=== PATIENT | male | born 1955 | race Caucasian/White ===

== ENCOUNTER 2017-01-02 12:32 | Emergency (ER) | payer OTHER ==
[2017-01-02 12:39] VITALS: BP 138/75; PULSE 75; BMI 26.6
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
== END 2017-01-02 14:23 | disposition home or self-care (01) ==
LOC: JERFT 12:32
DX: Z04.1 Encounter for examination and observation following transport accident (principal); I10 Essential (primary) hypertension; E11.9 Type 2 diabetes mellitus without complications; Z79.84 Long term (current) use of oral hypoglycemic drugs; F20.9 Schizophrenia, unspecified; V59.59XA Passenger in pick-up truck or van injured in collision with other motor vehicles in traffic accident, initial encounter; Y92.415 Exit ramp or entrance ramp of street or highway as the place of occurrence of the external cause; Y93.89 Activity, other specified; Y99.8 Other external cause status
CPT/HCPCS: 99281-25

== ENCOUNTER 2017-07-29 10:30 | Emergency (ER) | payer OTHER ==
[2017-07-29 10:38] VITALS: BMI 30.9
--- NOTE | 2017-07-29 12:29 | PDOC ---
History of Present Illness - General Chief Complaint: Weakness Stated Complaint: WEAKNESS, PAIN Time Seen by Provider: 07/29/17 11:06 History Source: Care Provider Exam Limitations: Other (MR and not responding to questions) - History of Present Illness Initial Comments: 07/29/17 12:24 The patient is a 62M with a PMH of MR, schizophrenia, and HTN who presents to the ER with his aide. The patient does not respond to questions and the aide provides the history. The aide states that the patient has this intermittent R hip pain, but this morning he was unable to ambulate and had tenderness to palpation over his back. He denies recalling the patient complain about anything. No other history was able to be provided. Past History - Past Medical History Allergies/Adverse Reactions: Allergies Allergy/AdvReac Type Severity Reaction Status Date / Time No Known Allergies Allergy Verified 07/29/17 10:33 Home Medications: Ambulatory Orders Amlodipine Besylate [Norvasc -] 5 mg PO HS 10/16/14 Aspirin [Aspirin EC] 81 mg PO DAILY 10/16/14 Atorvastatin Ca [Lipitor -] 20 mg PO HS 10/16/14 Divalproex Sodium [Divalproex Sodium ER] 1,500 mg PO HS 10/16/14 Docusate Sodium [Colace -] 100 mg PO TID 10/16/14 Fluticasone Prop 0.05% Nasal [Flonase -] 1 spray NS DAILY 10/16/14 Ketoconazole 2% Cream [Nizoral 2% Cream -] 1 applic TP BID 10/16/14 Lisinopril [Prinivil -] 40 mg PO DAILY 10/16/14 Loratadine 10 mg PO DAILY 10/16/14 Olanzapine 10 mg PO DAILY 10/16/14 metFORMIN HCL [Glucophage] 1,000 mg PO BID 10/16/14 Pioglitazone HCl 15 mg PO ASDIR 01/02/17 COPD: No Dementia: Yes Diabetes: Yes HTN: Yes Psychiatric Problems: Yes (Schizophrenia,PSYCHOSIS, Mod M.R) - Immunization History Immunization Up to Date: No - Suicide/Smoking/Psychosocial Hx Smoking Status: No Smoking History: Never smoked Number of Cigarettes Smoked Daily: 0 Information on smoking cessation initiated: No Hx Alcohol Use: No Drug/Substance Use Hx: No Substance Use Type: None Review of Systems - Review of Systems Able to Perform ROS?: No (Not answering questions) *Physical Exam - Vital Signs Last Vital Signs Temp Pulse Resp BP Pulse Ox 97.8 F 77 18 149/82 100 07/29/17 10:34 07/29/17 10:34 07/29/17 10:34 07/29/17 10:34 07/29/17 10:34 - Physical Exam Comments: 07/29/17 12:27 GENERAL: Well developed, well nourished. Awake and alert. No acute distress. HEENT: Normocephalic, atraumatic. Hearing grossly normal. Moist mucous membranes. PERRLA, EOMI. No conjunctival pallor. Sclera are non-icteric. Oropharynx is clear. NECK: Supple. Full ROM. CARDIOVASCULAR: Regular rate and rhythm. No murmurs, rubs, or gallops. PULMONARY: No evidence of respiratory distress. Lungs clear to auscultation bilaterally. No wheezing, rales or rhonchi. ABDOMINAL: Soft. Non-tender. Non-distended. No rebound or guarding. TESTICULAR: Nontender, descended tests b/l. GENITOURINARY: No CVA tenderness bilaterally. MUSCULOSKELETAL: Normal range of motion at all joints. No pain with SLR. No bony deformities or tenderness. EXTREMITIES: No cyanosis. No clubbing. No edema. No calf tenderness. SKIN: Warm and dry. Normal capillary refill. No rashes. No jaundice. NEUROLOGICAL: Alert, awake, appropriate. Cranial nerves 2-12 intact. Normal speech. Gait is normal without ataxia. PSYCHIATRIC: Cooperative. Good eye contact. Appropriate mood and affect. ED Treatment Course - LABORATORY CBC & Chemistry Diagram: 07/29/17 12:22 07/29/17 12:22 Medical Decision Making - Medical Decision Making 07/29/17 12:28 The patient is a 62M with a PMH of MR, HTN, and schizophrenia who presents to the ER with complaints of R hip pain. The patient has no acute complaints. He speaks Polish. Assistant Sales Director phone was used x 2 (#[phone] #[phone]) and he did not speak into the phone either time. My exam is unremarkable. Will order basic labs to r/o infectious process and send home. 07/29/17 13:46 All labs negative. Will send home with PCP f/u. *DC/Admit/Observation/Transfer Diagnosis at time of Disposition: Right hip pain - Discharge Dispostion Disposition: HOME Condition at time of disposition: Stable Decision to Admit order: No - Referrals - Patient Instructions Printed Discharge Instructions: Help for Hip Pain Additional Instructions: Please follow up with your primary care physician in 2-3 days. Please return to the ER if you have any signs or symptoms of chest pain, shortness of breath, uncontrollable fever, chills, nausea, vomiting, numbness, tingling, or weakness in any part of your body, changes in vision, or slurred speech. Please take your medications as prescribed. Please return to the ER if symptoms persist, worsen, or new symptoms arise. Por favor, siga com seu mdico de cuidados primrios em 2-3 liu. Por favor, retorne ao pronto-gregory se tiver sinais ou sintomas de leesa no peito , falta de ar, febre incontrolvel, calafrios, nuseas, vmitos, dormncia, formigamento ou fraqueza em qualquer parte do corpo, alteraes na viso ou fala arrastada. Por favor, tome seus medicamentos wei prescrito. Por favor, retorne ao pronto-gregory se os sintomas persistirem, piorarem ou surgirem novos sintomas. Print Language: CITIZEN OF [place] - Post Discharge Activity
[2017-07-29 12:31] LABS: BASO % 0.6 % (0-2.0); EOS % 1.7 % (0-4.5); HEMATOCRIT 41.5 % (35.4-49); HEMOGLOBIN 13.7 GM/dL (11.7-16.9); LYMPH % 36.5 % (8-40); MCH 28.1 pg (25.7-33.7); MEAN CELL VOLUME 85.2 fl (80-96); MEAN PLT VOLUME 9.2 fl (7.5-11.1); MONO % 10.7 % (3.8-10.2); NEUT % 50.5 % (42.8-82.8); PLATELET COUNT 187 K/MM3 (134-434); RBC 4.88 M/mm3 (4.00-5.60); RDW 15.2 % (11.9-15.9); WHITE BLOOD COUNT 9.2 K/mm3 (4.0-10.0)
[2017-07-29 12:57] LABS: ANION GAP 8 (8-16); BLOOD UREA NITROGEN 18 mg/dL (7-18); CALCIUM 9.1 mg/dL (8.5-10.1); CHLORIDE 104 mmol/L (98-107); CO2 26 mmol/L (21-32); GLUCOSE,RANDOM 134 mg/dL (74-106); POTASSIUM 5.1 mmol/L (3.5-5.1); SGOT/AST 12 U/L (15-37); SGPT/ALT 25 U/L (12-78); SODIUM 138 mmol/L (136-145)
[2017-07-29 12:59] LABS: ALK PHOS 45 U/L (45-117); BILIRUBIN,TOTAL 0.3 mg/dL (0.2-1.0); TOT PROT 7.4 g/dl (6.4-8.2)
--- NOTE | 2017-07-29 13:04 | PDOC ---
Attending Attestation - Resident Resident Name: Pete Lugo - ED Attending Attestation I have performed the following: I have examined & evaluated the patient, The case was reviewed & discussed with the resident, I agree w/resident's findings & plan, Exceptions are as noted - HPI HPI: 07/29/17 12:59 "The patient is a 62 year old male, with a significant past medical history of MR, schizophrenia, and hypertension, who presents to the emergency department with aide with complaint of generalized body pain. Pt is a poor historian 2/2 MR despite use of fuels sales representative phone for English. Aide reports that the pt has had pain for months. He is unable to communicate exactly where, but aide states that he rubs his legs and back occasionally. The pain seems to come and go throughout the day. Aide does not know of any exacerbating or alleviating factors. Pt upon interview is laughing and walking around room with no limp. Aide states that he appears well at this time. As per chart review, the patient had xrays of his left hip on 07/19/17 which was normal. Allergies: NKDA " - Physicial Exam PE: 07/29/17 13:02 "GENERAL: Awake, alert, well appearing EYES: PERRLA, clear conjunctiva NOSE: Nose is clear without discharge EARS: EACs and TMs are normal THROAT: Moist mucosa, oropharynx is clear without erythema or exudates, NECK: Supple, no adenopathy, no meningismus CHEST: Lungs are clear without crackles, or wheezes HEART: Regular rhythm, normal S1 and S2, no murmurs ABDOMEN: Soft and nontender with normal bowel sounds, no organomegaly, no mass, no rebound, no guarding EXTREMITIES: Normal, no deformity or tenderness NEURO: normal cranial nerves, normal tone SKIN: Unremarkable, no rash, no swelling, no bruising, no signs of injury " - Medical Decision Making 07/29/17 13:02 62 M with intermittent pain to b/l legs and back for several months. Currently does not appear to be in any pain. Exam is completely unremarkable at this time , and pt is ambulatory without assistance. Pt is currently on a statin, so will obtain labs and CPK to r/o myositis or other muscle injury. - Labs, CPK Labs wnl, CPK normal, no evidence of muscle breakdown Pt is well appearing, with normal vitals. Clinically stable for DC at this time. I discussed the physical exam findings, ancillary test results and final diagnoses with the patients mapping editor. I answered all of their questions. The mapping editor was satisfied with the care received and felt comfortable with the discharge plan and treatment plan. They agree to follow up with the primary care physician within 24-72 hours.
[2017-07-29 14:17] VITALS: BP 140/78; PULSE 69; TEMP 97.9
== END 2017-07-29 14:17 | disposition home or self-care (01) ==
LOC: JER 10:30
DX: M25.551 Pain in right hip (principal); I10 Essential (primary) hypertension; F20.9 Schizophrenia, unspecified; F71 Moderate intellectual disabilities; E11.9 Type 2 diabetes mellitus without complications; Z79.84 Long term (current) use of oral hypoglycemic drugs
CPT/HCPCS: 36415; 80053; 82550; 85025; 99282-25

== ENCOUNTER 2017-10-04 16:03 | Emergency (ER) | payer OTHER ==
--- NOTE | 2017-10-04 16:57 | PDOC ---
Rapid Medical Evaluation Time Seen by Provider: 10/04/17 16:47 Medical Evaluation: Allergies Allergy/AdvReac Type Severity Reaction Status Date / Time No Known Allergies Allergy Verified 07/29/17 10:33 10/04/17 16:51 Pt. is a 62 y/o M who presents to the ED with rash to his hands, head, and feet for one day. From [place]. Non-verbal at baseline Exam: erythematous macules to the palms, feet and face. No lesions noted in the mouth. Breathing easily, at baseline. Orders: Nothing Pt to proceed to ED for further evaluation. Discharge Disposition - Diagnosis Rash - Referrals - Patient Instructions - Post Discharge Activity
--- NOTE | 2017-10-04 17:07 | PDOC ---
History of Present Illness - General Chief Complaint: Rash Stated Complaint: RASH Time Seen by Provider: 10/04/17 16:47 History Source: Intermediate Records Exam Limitations: Physical Impairment - History of Present Illness Initial Comments: CHIEF COMPLAINT: 62 y/o male with HTN, HLD, DM, MR, non verbal BIB shelter staff for itchy rash today. HISTORY OF PRESENT ILLNESS: Staff says this morning they noticed the patient was scratching his arms, hands, legs and feet. THey noticed a red rash. The patient saw his PCP who sent him here. Staff denies fever, facial swelling, lips swelling, difficulty breathing and all other symptoms. Vital signs on arrival are within normal limits. REVIEW OF SYSTEMS: (Provided by staff) GENERAL/CONSTITUTIONAL: No fever HEAD, EYES, EARS, NOSE AND THROAT: No facial swelling. CARDIOVASCULAR: No shortness of breath. RESPIRATORY: No cough, wheezing, or hemoptysis. SKIN: +itchy rash PHYSICAL EXAM: GENERAL: The patient is awake, alert, and fully oriented, in no acute distress. He is well appearing. He is smiling. HEAD: Normal with no signs of trauma. ENT: Pupils equal, round and reactive to light, extraocular movements intact, sclera anicteric, conjunctiva clear. NO angioedema. LUNGS: Clear to auscultation bilaterally. Normal excursion. No respiratory distress or use of accessory muscles. SKIN: non raised, erythematous macules mostly on both palms, some on arms and few on legs. Nothing noted in mouth. Rash does not stella. Past History - Past Medical History Allergies/Adverse Reactions: Allergies Allergy/AdvReac Type Severity Reaction Status Date / Time No Known Allergies Allergy Verified 10/04/17 17:01 Home Medications: Ambulatory Orders Amlodipine Besylate [Norvasc -] 10 mg PO HS 07/29/17 Aspirin [Aspirin EC] 81 mg PO DAILY 07/29/17 Atenolol [Tenormin -] 50 mg PO DAILY 07/29/17 Atorvastatin Ca [Lipitor] 20 mg PO HS 07/29/17 Clotrimazole/Betamethasone Dip [Clotrimazole-Betamethasone Crm] 1 applic TP BID 07/29/17 Desonide 1 applic TP BID 07/29/17 Divalproex [Depakote -] 1,500 mg PO DAILY 07/29/17 Docusate Sodium [Colace -] 100 mg PO TID 07/29/17 Fluocinolone Acetonide 1 applic TP BID 07/29/17 Fluticasone Propionate [Flovent Diskus] 50 mcg IH BID 07/29/17 Ketoconozole 2% Cream [Nizoral 2% Cream -] 1 applic TP BID 07/29/17 Lisinopril [Prinivil -] 40 mg PO DAILY 07/29/17 Loratadine [Claritin -] 10 mg PO DAILY 07/29/17 Metformin HCl [Metformin HCl ER] 1,000 mg PO BID 07/29/17 Naproxen [Naprosyn -] 375 mg PO BID PRN 07/29/17 Olanzapine [Zyprexa -] 10 mg PO BID 07/29/17 Pioglitazone HCl [Actos] 15 mg PO DAILY 07/29/17 Diphenhydramine HCl/Zinc Acet [Benadryl 2% Cream] 1 applic TP TID #1 tube COPD: No Dementia: Yes Diabetes: Yes HTN: Yes Psychiatric Problems: Yes (Schizophrenia,PSYCHOSIS, Mod M.R) - Immunization History Immunization Up to Date: No - Suicide/Smoking/Psychosocial Hx Smoking Status: No Smoking History: Never smoked Number of Cigarettes Smoked Daily: 0 Hx Alcohol Use: No Drug/Substance Use Hx: No Substance Use Type: None *Physical Exam - Vital Signs Last Vital Signs Temp Pulse Resp BP Pulse Ox 98.4 F 85 16 146/76 99 10/04/17 16:54 10/04/17 16:54 10/04/17 16:54 10/04/17 16:54 10/04/17 16:54 ED Treatment Course - LABORATORY CBC & Chemistry Diagram: 10/04/17 17:10 Medical Decision Making - Medical Decision Making A/P: 62 y/o male with itchy rash to hands, arms and legs. almost looks like hand/foot/mouth. Will check platelets, give benadryl. Platelets WNLs. Will send rx for benadryl cream. STaff instructed to f/u with Dr. Woo or another debeaker within 1 week and return to the ER with any worsening or concerning symptoms. The patient verbalizes understanding of all instructions, has no further questions and is awaiting discharge. *DC/Admit/Observation/Transfer Diagnosis at time of Disposition: Rash - Discharge Dispostion Disposition: ALF FACILITY Condition at time of disposition: Good - Prescriptions Prescriptions: Diphenhydramine HCl/Zinc Acet [Benadryl 2% Cream] 1 applic TP TID #1 tube - Referrals Referrals: Lavern Woo MD [Staff Physician] - - Patient Instructions Printed Discharge Instructions: DI for Rash Additional Instructions: Discharge Instructions: -You have an itchy rash -A prescription for benadryl cream has been sent to your pharmacy; please use as prescribed for itching -Follow up with Dr. Woo or another Rags Laborer within 1 week if no improvement in rash - Post Discharge Activity
[2017-10-04 17:11] VITALS: BP 146/76; PULSE 85; TEMP 98.4; BMI 31.3
[2017-10-04 17:20] LABS: BASO % 0.7 % (0-2.0); EOS % 2.3 % (0-4.5); HEMATOCRIT 38.2 % (35.4-49); LYMPH % 16.6 % (8-40); MCH 28.7 pg (25.7-33.7); MEAN CELL VOLUME 84.5 fl (80-96); MEAN PLT VOLUME 9.1 fl (7.5-11.1); MONO % 24.4 % (3.8-10.2); PLATELET COUNT 182 K/MM3 (134-434); RBC 4.52 M/mm3 (4.00-5.60); RDW 14.3 % (11.9-15.9); WHITE BLOOD COUNT 8.5 K/mm3 (4.0-10.0)
[2017-10-04] MEDS ORDERED: diphenhydrAMINE HCL 25 MG CAPSULE (FP) PO ONE ×2 (17:31→17:42)
[2017-10-04 21:08] LABS: ANISOCYTOSIS 1+; MACROCYTOSIS 1+; PLATELET ESTIMATE ADEQUATE
== END 2017-10-04 17:47 ==
LOC: JERFT 16:03 → JER 16:03 → JERFT 17:47
DX: R21 Rash and other nonspecific skin eruption (principal); I10 Essential (primary) hypertension; E70.0 Classical phenylketonuria; E11.9 Type 2 diabetes mellitus without complications; Z79.84 Long term (current) use of oral hypoglycemic drugs; R47.01 Aphasia; F79 Unspecified intellectual disabilities
CPT/HCPCS: 36415; 85025; 99281-25

== ENCOUNTER 2017-11-26 14:00 | Emergency (ER) | payer OTHER ==
[2017-11-26 14:12] VITALS: BP 129/78; PULSE 92; TEMP 98.8; BMI 29.0
--- NOTE | 2017-11-26 14:13 | PDOC ---
Rapid Medical Evaluation Time Seen by Provider: 11/26/17 14:07 Medical Evaluation: Allergies Allergy/AdvReac Type Severity Reaction Status Date / Time No Known Allergies Allergy Verified 10/04/17 17:01 11/26/17 14:07 Pt is a 62 y/o M who presents to the ED s/p fall. Pt with R leg limp and gave out today. Did not hit his head or black out. Pt is currently being evaluated for frequent falls by his PCP. Had x-ray one week ago and it was normal. Exam: Abrasion to R knee. Pt is non-verbal at baseline Orders: Defer to on-coming provider Pt to proceed to ED for further evaluation Discharge Disposition - Diagnosis Abrasion Fall Qualifiers: Encounter type: initial encounter Qualified Code(s): W19.XXXA - Unspecified fall, initial encounter - Referrals - Patient Instructions - Post Discharge Activity
--- NOTE | 2017-11-26 15:07 | PDOC ---
History of Present Illness - General Chief Complaint: Injury Stated Complaint: FALL Time Seen by Provider: 11/26/17 14:07 - History of Present Illness Initial Comments: 62-year-old male nonverbal with severe MR presents for evaluation after a fall. He did have a witnessed mechanical fall. He does have frequent falls and he is being worked up by his primary care physician. 11/26/17 15:04 Past History - Past Medical History Allergies/Adverse Reactions: Allergies Allergy/AdvReac Type Severity Reaction Status Date / Time No Known Allergies Allergy Verified 11/26/17 14:08 Home Medications: Ambulatory Orders Amlodipine Besylate [Norvasc -] 10 mg PO HS 07/29/17 Aspirin [Aspirin EC] 81 mg PO DAILY 07/29/17 Atenolol [Tenormin -] 50 mg PO DAILY 07/29/17 Atorvastatin Ca [Lipitor] 20 mg PO HS 07/29/17 Clotrimazole/Betamethasone Dip [Clotrimazole-Betamethasone Crm] 1 applic TP BID 07/29/17 Desonide 1 applic TP BID 07/29/17 Divalproex [Depakote -] 1,500 mg PO DAILY 07/29/17 Docusate Sodium [Colace -] 100 mg PO TID 07/29/17 Fluocinolone Acetonide 1 applic TP BID 07/29/17 Fluticasone Propionate [Flovent Diskus] 50 mcg IH BID 07/29/17 Ketoconozole 2% Cream [Nizoral 2% Cream -] 1 applic TP BID 07/29/17 Lisinopril [Prinivil -] 40 mg PO DAILY 07/29/17 Loratadine [Claritin -] 10 mg PO DAILY 07/29/17 Metformin HCl [Metformin HCl ER] 1,000 mg PO BID 07/29/17 Naproxen [Naprosyn -] 375 mg PO BID PRN 07/29/17 Olanzapine [Zyprexa -] 10 mg PO BID 07/29/17 Pioglitazone HCl [Actos] 15 mg PO DAILY 07/29/17 Diphenhydramine HCl/Zinc Acet [Benadryl 2% Cream] 1 applic TP TID #1 tube COPD: No Dementia: Yes Diabetes: Yes HTN: Yes Psychiatric Problems: Yes (Schizophrenia,PSYCHOSIS, Mod M.R) - Immunization History Immunization Up to Date: No - Suicide/Smoking/Psychosocial Hx Smoking Status: No Smoking History: Never smoked Number of Cigarettes Smoked Daily: 0 Hx Alcohol Use: No Drug/Substance Use Hx: No Substance Use Type: None Review of Systems - Review of Systems Comments:: Unobtainable 11/26/17 15:05 *Physical Exam - Vital Signs Last Vital Signs Temp Pulse Resp BP Pulse Ox 98.8 F 92 H 19 129/78 99 11/26/17 14:11/26/17 14:11/26/17 14:11/26/17 14:11/26/17 14:09 - Physical Exam Comments: There is a superficial abrasion on the anterior aspect of the skin overlying the tibial tuberosity. This was cleaned and dry sterile dressing was placed. There is no intra-articular effusion there is full range of motion of the knee and what appears to be nonpainful. No evidence of instability no appreciable areas of tenderness 11/26/17 15:05 Medical Decision Making - Medical Decision Making This is most likely just a superficial abrasion of the knee local wound care was given he'll follow up with primary care physician for further evaluation and treatment options. 11/26/17 15:06 *DC/Admit/Observation/Transfer Diagnosis at time of Disposition: Abrasion Fall Qualifiers: Encounter type: initial encounter Qualified Code(s): W19.XXXA - Unspecified fall, initial encounter - Discharge Dispostion Disposition: HOME Condition at time of disposition: Stable Decision to Admit order: No - Referrals - Patient Instructions Printed Discharge Instructions: DI for Abrasion Additional Instructions: Return to the emergency room should there be any drainage or swelling to the area. Otherwise he may keep the dressing on for 48 hours after which you may remove the dressing and wash with soap and water and leave the area open to air. Follow-up with your primary care physician as scheduled for further evaluation and treatment options. - Post Discharge Activity
== END 2017-11-26 15:07 | disposition home or self-care (01) ==
LOC: JERFT 14:00
DX: S80.211A Abrasion, right knee, initial encounter (principal); R26.89 Other abnormalities of gait and mobility; W18.39XA Other fall on same level, initial encounter; Z91.81 History of falling; Y93.89 Activity, other specified; Y92.198 Other place in other specified residential institution as the place of occurrence of the external cause; Y99.8 Other external cause status; F20.9 Schizophrenia, unspecified; F71 Moderate intellectual disabilities; F03.90 Unspecified dementia, unspecified severity, without behavioral disturbance, psychotic disturbance, mood disturbance, and anxiety; F29 Unspecified psychosis not due to a substance or known physiological condition
CPT/HCPCS: 99281-25

== ENCOUNTER 2019-01-05 21:36 | Emergency (ER) | payer OTHER ==
[2019-01-05 21:49] VITALS: BP 147/86; PULSE 89; TEMP 98; BMI 33.0
--- NOTE | 2019-01-05 21:51 | PDOC ---
Rapid Medical Evaluation Chief Complaint: Redness To Affected Area Time Seen by Provider: 01/05/19 21:45 Medical Evaluation: Allergies Allergy/AdvReac Type Severity Reaction Status Date / Time No Known Allergies Allergy Verified 01/05/19 21:45 Vital Signs Temp Pulse Resp BP Pulse Ox 98 F 89 18 147/86 98 01/05/19 21:46 01/05/19 21:46 01/05/19 21:46 01/05/19 21:46 01/05/19 21:46 01/05/19 21:49 I have performed a brief in-person evaluation of this patient. The patient presents with a chief complaint of: BIB from [facility] due to ecchymosis of right great toe from today on unknown etiology. went to [facility] urgent care to day and advised to come to ED Pertinent physical exam findings:ecchymosis with brittle toenail of right great toe I have ordered the following: x- ray of RT great toe The patient will proceed to the ED for further evaluation. Discharge Disposition - Diagnosis Bruised toe - Discharge Dispostion Condition at time of disposition: Stable - Referrals - Patient Instructions - Post Discharge Activity
--- NOTE | 2019-01-05 22:37 | PDOC ---
History of Present Illness - General Chief Complaint: Redness To Affected Area Stated Complaint: SENT BY URGENT CARE Time Seen by Provider: 01/05/19 21:45 History Source: Patient - History of Present Illness Initial Comments: 01/05/19 23:06 63-year-old male brought in by aide from [facility] with bruising to the right great toe. Unknown trauma. Patient was seen at urgent care was was referred to the ER for further evaluation.. Patient has a past medical history of mental retardation, psychosis, hypertension, diabetes, hypercholesterolemia. Past History - Past Medical History Allergies/Adverse Reactions: Allergies Allergy/AdvReac Type Severity Reaction Status Date / Time No Known Allergies Allergy Verified 01/05/19 21:45 Home Medications: Ambulatory Orders Amlodipine Besylate [Norvasc -] 10 mg PO HS 07/29/17 Aspirin [Aspirin EC] 81 mg PO DAILY 07/29/17 Atenolol [Tenormin -] 50 mg PO DAILY 07/29/17 Atorvastatin Ca [Lipitor] 20 mg PO HS 07/29/17 Clotrimazole/Betamethasone Dip [Clotrimazole-Betamethasone Crm] 1 applic TP BID 07/29/17 Desonide 1 applic TP BID 07/29/17 Divalproex [Depakote -] 1,500 mg PO DAILY 07/29/17 Docusate Sodium [Colace -] 100 mg PO TID 07/29/17 Fluocinolone Acetonide 1 applic TP BID 07/29/17 Fluticasone Propionate [Flovent Diskus] 50 mcg IH BID 07/29/17 Ketoconozole 2% Cream [Nizoral 2% Cream -] 1 applic TP BID 07/29/17 Lisinopril [Prinivil -] 40 mg PO DAILY 07/29/17 Loratadine [Claritin -] 10 mg PO DAILY 07/29/17 Naproxen [Naprosyn -] 375 mg PO BID PRN 07/29/17 Olanzapine [Zyprexa -] 10 mg PO BID 07/29/17 Pioglitazone HCl [Actos] 15 mg PO DAILY 07/29/17 metFORMIN HCL [Metformin HCl ER] 1,000 mg PO BID 07/29/17 Diphenhydramine HCl/Zinc Acet [Benadryl 2% Cream] 1 applic TP TID #1 tube Cephalexin Monohydrate [Keflex -] 250 mg PO Q8H #21 capsule 01/05/19 COPD: No Dementia: Yes Diabetes: Yes HTN: Yes Psychiatric Problems: Yes (Schizophrenia,PSYCHOSIS, Mod M.R) Other medical history: mental retardation - Immunization History Immunization Up to Date: No - Psycho Social/Smoking Cessation Hx Smoking Status: No Smoking History: Never smoked Number of Cigarettes Smoked Daily: 0 Hx Alcohol Use: No Drug/Substance Use Hx: No Substance Use Type: None Review of Systems - Review of Systems Able to Perform ROS?: Yes Is the patient limited Setswana proficient: No Integumentary: Yes: Other (toe injury) *Physical Exam - Vital Signs Last Vital Signs Temp Pulse Resp BP Pulse Ox 98 F 89 18 147/86 98 01/05/19 21:46 01/05/19 21:46 01/05/19 21:46 01/05/19 21:46 01/05/19 21:46 - Physical Exam General Appearance: Yes: Appropriately Dressed Respiratory/Chest: positive: Lungs Clear, Normal Breath Sounds Extremity: positive: Pedal Edema (b/l lower extremity nonpitting edema, right great toe bruising, no erythema to the toe / foot or streaking noted) Neurologic: positive: Fully Oriented, Alert ED Progress Note - Progress Note Progress Note: 01/05/19 23:11 right great toe contusion P: xray negative will empirically give cephalexin wound check in 2 days with pcp Medical Decision Making - Medical Decision Making 01/05/19 23:10 xray: negative Discharge - Discharge Information Problems reviewed: Yes Clinical Impression/Diagnosis: Contusion of great toe of right foot Qualifiers: Encounter type: initial encounter Damage to nail status: without damage Qualified Code(s): S90.111A - Contusion of right great toe without damage to nail, initial encounter Condition: Stable Disposition: HOME - Additional Discharge Information Prescriptions: Cephalexin Monohydrate [Keflex -] 250 mg PO Q8H #21 capsule - Follow up/Referral - Patient Discharge Instructions Additional Instructions: X-ray did not show fracture. Patient should follow-up with his doctor for a wound check in 2 days. We will give antibiotic empirically since patient has a history of diabetes. Return to the emergency room if redness is worsening or streaking or patient is having fever. - Post Discharge Activity
== END 2019-01-05 23:18 | disposition home or self-care (01) ==
LOC: JER 21:36
DX: S90.111A Contusion of right great toe without damage to nail, initial encounter (principal); X58.XXXA Exposure to other specified factors, initial encounter; Y93.89 Activity, other specified; Y92.89 Other specified places as the place of occurrence of the external cause; Y99.8 Other external cause status; I10 Essential (primary) hypertension; E11.9 Type 2 diabetes mellitus without complications; Z79.84 Long term (current) use of oral hypoglycemic drugs; F03.90 Unspecified dementia, unspecified severity, without behavioral disturbance, psychotic disturbance, mood disturbance, and anxiety; F20.9 Schizophrenia, unspecified; F71 Moderate intellectual disabilities; F29 Unspecified psychosis not due to a substance or known physiological condition
CPT/HCPCS: 73660-TC-FY; 99281-25

== ENCOUNTER 2019-04-30 08:40 | Inpatient (IN) | payer OTHER ==
--- NOTE | 2019-04-30 08:52 | PDOC ---
History of Present Illness - General Chief Complaint: Weakness Stated Complaint: HTN,WEAKNESS - History of Present Illness Initial Comments: The pt is a 64M w/ a history of MR, HTN, DM, new fluid restriction 2/2 BLE swelling who presents for evaluation of hypotension, lethargy, and tachycardia. The pt's BP was noted to be 70/51 and repeat 61/47 w/ HR 100 and 97 respectively. He was noted to be more lethargic than usual as well. EMS was subsequently called. The pt is unable to provide a history 2/2 MR 04/30/19 09:08 Past History - Past Medical History Allergies/Adverse Reactions: Allergies Allergy/AdvReac Type Severity Reaction Status Date / Time No Known Allergies Allergy Verified 04/30/19 09:00 Home Medications: Ambulatory Orders Amlodipine Besylate [Norvasc -] 10 mg PO HS 07/29/17 Aspirin [Aspirin EC] 81 mg PO DAILY 07/29/17 Atenolol [Tenormin -] 50 mg PO DAILY 07/29/17 Atorvastatin Ca [Lipitor] 20 mg PO HS 07/29/17 Clotrimazole/Betamethasone Dip [Clotrimazole-Betamethasone Crm] 1 applic TP BID 07/29/17 Desonide 1 applic TP BID 07/29/17 Divalproex [Depakote -] 1,500 mg PO DAILY 07/29/17 Docusate Sodium [Colace -] 100 mg PO TID 07/29/17 Fluocinolone Acetonide 1 applic TP BID 07/29/17 Fluticasone Propionate [Flovent Diskus] 50 mcg IH BID 07/29/17 Ketoconozole 2% Cream [Nizoral 2% Cream -] 1 applic TP BID 07/29/17 Lisinopril [Prinivil -] 40 mg PO DAILY 07/29/17 Loratadine [Claritin -] 10 mg PO DAILY 07/29/17 Naproxen [Naprosyn -] 375 mg PO BID PRN 07/29/17 Olanzapine [Zyprexa -] 10 mg PO BID 07/29/17 Pioglitazone HCl [Actos] 15 mg PO DAILY 07/29/17 metFORMIN HCL [Metformin HCl ER] 1,000 mg PO BID 07/29/17 Diphenhydramine HCl/Zinc Acet [Benadryl 2% Cream] 1 applic TP TID #1 tube 07/20/ 18 Cephalexin Monohydrate [Keflex -] 250 mg PO Q8H #21 capsule 01/05/19 COPD: No Dementia: Yes Diabetes: Yes HTN: Yes Psychiatric Problems: Yes (Schizophrenia,PSYCHOSIS, Mod M.R) - Immunization History Immunization Up to Date: No - Psycho Social/Smoking Cessation Hx Smoking Status: No Smoking History: Never smoked Number of Cigarettes Smoked Daily: 0 Hx Alcohol Use: No Drug/Substance Use Hx: No Substance Use Type: None Review of Systems - Review of Systems Able to Perform ROS?: No (2/2 medical condition) *Physical Exam - Vital Signs Initial Vital Signs Temp Pulse Resp BP Pulse Ox 100.5 F H 96 H 28 H 101/46 L 90 L 04/30/19 09:00 04/30/19 09:00 04/30/19 09:00 04/30/19 09:00 04/30/19 09:00 04/30/19 12:28 - Physical Exam GENERAL: Awake, does not follow commands HEAD: No signs of trauma, normocephalic, atraumatic EYES: PERRLA, EOMI, sclera anicteric, conjunctiva clear ENT: Hearing grossly normal, nares patent, oropharynx clear without exudates. Dry mucosa LUNGS: No distress, speaks in full sentences, clear to auscultation bilaterally HEART: Regular rate and rhythm, normal S1 and S2, no murmurs appreciated, peripheral pulses normal and equal bilaterally ABDOMEN: Soft, protuberant, no grimace to palpation, normoactive bowel sounds EXTREMITIES: Moves all extremities independently; 1+ BLE swelling to mid sanchez NEUROLOGICAL: non-verbal, does not follow commands, localizes to pain throughout SKIN: Warm, pale, diaphoretic 04/30/19 08:51 ED Treatment Course - LABORATORY CBC & Chemistry Diagram: 04/30/19 09:00 04/30/19 09:00 Medical Decision Making - Medical Decision Making Pt presented for evaluation of hypotension, tachycardia, and abd pain CXR w/ air under right hemidiaphragm Labs sent CT A&P w/o 2L IVF No leukocytosis No anemia Lactic acidosis LFTs wnl Pt given Vanc/Zosyn/Flagyl CT w/ pneumoperitoneum Dr. Bhat consulted OR ready for pt [employer]blog sent for admission 02/13/20 12:25 Pt signed out to Brian Admitting Discharge - Discharge Information Problems reviewed: Yes Clinical Impression/Diagnosis: Bowel perforation Condition: Guarded - Admission Yes - Follow up/Referral Referrals: Tr Bill [Primary Care Provider] - - Patient Discharge Instructions - Post Discharge Activity
[2019-04-30] MEDS ORDERED: PIPERACILLIN/TAZOB 3.375 GM 3.375 GM in DEXTROSE 5%-WATER - 50 ML IVPB ONE (09:29)
[2019-04-30] MEDS ORDERED: SODIUM CHLORIDE 0.9% 500 ML INFUS.BAG IV ONE ×2 (09:29→11:36)
[2019-04-30] MEDS ORDERED: VANCOMYCIN 1 GM in D5W (PRE-DOCKED) 1,000 MG/250 ML IVPB ONE (09:29)
[2019-04-30] MEDS ORDERED: PIPERACILLIN/TAZOB 2.25 GM 2.25 GM/50 ML BAG IVPB ONE (09:44)
[2019-04-30] MEDS ORDERED: VANCOMYCIN 1 GRAM (PRE-DOCKED) 1,000 MG/250 ML BAG IVPB ONE (09:45)
[2019-04-30] MEDS ORDERED: PIPERACILLIN/TAZOB 3.375 GM 3.375 GM/50 ML BAG IVPB ONE (09:45)
[2019-04-30 10:38] LABS: INR 1.1 (0.83-1.09)
[2019-04-30 10:41] LABS: ACTIVATED PTT 33.3 SECONDS (25.2-36.5)
[2019-04-30 10:46] LABS: BASO % 0.4 % (0-2.0); EOS % 0.4 % (0-4.5); HEMOGLOBIN 12.4 GM/dL (11.7-16.9); LYMPH % 15.5 % (8-40); MCH 28.1 pg (25.7-33.7); MCHC 33.5 g/dl (32.0-35.9); MEAN CELL VOLUME 83.9 fl (80-96); MEAN PLT VOLUME 9.9 fl (7.5-11.1); MONO % 5.5 % (3.8-10.2); NEUT % 78.2 % (42.8-82.8); PLATELET COUNT 211 K/MM3 (134-434); RBC 4.41 M/mm3 (4.00-5.60); RDW 15.6 % (11.9-15.9); WHITE BLOOD COUNT 3.9 K/mm3 (4.0-10.0)
[2019-04-30 10:49] LABS: VENOUS PC02 29.2 mmHg (38-52); VENOUS PH 7.42 (7.31-7.41); VENOUS PO2 59.1 mmHg (28-48)
[2019-04-30 11:12] LABS: ALBUMIN 2.9 g/dl (3.4-5.0); BILIRUBIN,TOTAL 0.6 mg/dL (0.2-1); BLOOD UREA NITROGEN 22.5 mg/dL (7-18); CALCIUM 8.7 mg/dL (8.5-10.1); CREATININE 1.4 mg/dL (0.55-1.3); POTASSIUM 4.2 mmol/L (3.5-5.1); TOT PROT 6.4 g/dl (6.4-8.2)
[2019-04-30] MEDS ORDERED: ACETAMINOPHEN 1000 MG/100 ML VIAL (NON FORMULARY) IVPB ONE (11:36)
--- NOTE | 2019-04-30 11:38 | PDOC ---
Documentation entered by Renae Sanders SCRIBE, acting as scribe for Ana Aparicio MD. Ana Aparicio MD: This documentation has been prepared by the Marilyn martinez Brenda, SCRIBE, under my direction and personally reviewed by me in its entirety. I confirm that the documentation accurately reflects all work, treatment, procedures, and medical decision making performed by me. Attending Attestation - Resident Resident Name: ChelyamariLuis - ED Attending Attestation I have performed the following: I have examined & evaluated the patient, The case was reviewed & discussed with the resident, I agree w/resident's findings & plan, Exceptions are as noted - HPI HPI: 04/30/19 09:25 The patient is a 64 year old male with a significant PMH of MR, HTN, DM,. fluid restrcition 2/2 bilateral extremities who presents to the ED from [place] due to being found hypotensive, lethargic and tachycardic as per staff. Patient was limited due to MR. Patient is accompanied by aide, who endorsed low blood sugar. Allergies: NKA Past surgical history: None reported Social history: No reported hx of tobacco use, alcohol use or illicit drug use. PCP: Tr Bill - Physicial Exam PE: 04/30/19 10:39 GENERAL: Awake, non verbal HEAD: No signs of trauma EYES: PERRLA, EOMI, sclera anicteric, conjunctiva clear NECK: Normal ROM, supple, no lymphadenopathy, JVD, or masses LUNGS: Breath sounds equal, clear to auscultation bilaterally. No wheezes, and no crackles HEART: Regular rate and rhythm, normal S1 and S2, no murmurs, rubs or gallops ABDOMEN: Soft, nontender, normoactive bowel sounds. No guarding, no rebound. No masses EXTREMITIES: Normal range of motion, no edema. No clubbing or cyanosis. No cords, erythema, or tenderness NEUROLOGICAL: Alert, non verbal, not answering questions or following commands. SKIN: Warm, Dry, normal turgor, no rashes or lesions noted. 04/30/19 12:33 - Critical Care Time Total Critical Care Time: 30 Critical Care Statement: The care of this patient involved high complexity decision making to prevent further life threatening deterioration of the patient 's condition and/or to evaluate & treat vital organ system(s) failure or risk of failure. - Medical Decision Making 04/30/19 11:36 Pt presents to the ED complaining of generalized weakness and hypotension in NH. + free air on cxr. Concern for perforation. plan for broad spectrum abx, emergent CT abdomen, surgical consult and admission. BP improved after IVF.
[2019-04-30] MEDS ORDERED: ACETAMINOPHEN INJECTION 100 ML IVPB ONE (11:45)
[2019-04-30] MEDS ORDERED: SEVOFLURANE 250 ML BTL ONE (13:04)
[2019-04-30] MEDS ORDERED: SODIUM CHLORIDE 1,000 ML IV STA (13:04)
[2019-04-30] MEDS ORDERED: DESFLURANE GAS 240 ML BOTTLE IH ONE (13:04)
[2019-04-30] MEDS ORDERED: ROCURONIUM BROMIDE 50 MG/5 ML SYRINGE ONE ×2 (13:15→14:36)
[2019-04-30 13:20] LABS: EPI CELLS 1.3 /HPF (0-5/HPF); HYALINE CASTS 4 /lpf (0-8); URINE APPEARANCE CLEAR; URINE BILIRUBIN NEGATIVE (NEGATIVE); URINE COLOR YELLOW; URINE GLUCOSE (UA) TRACE (NEGATIVE); URINE KETONE TRACE (NEGATIVE); URINE LEUK ESTERASE NEGATIVE (NEGATIVE); URINE NITRITE NEGATIVE (NEGATIVE); URINE PROTEIN NEGATIVE (NEGATIVE); URINE RBC 4 /hpf (0-4); URINE UROBILINOGEN 0.2 mg/dL (0.2-1.0); URINE WBC 3 /hpf (0-5)
--- NOTE | 2019-04-30 13:42 | EKG ---
Test Reason : Blood Pressure : / mmHG Vent. Rate : 098 BPM Atrial Rate : 098 BPM P-R Int : 140 ms QRS Dur : 086 ms QT Int : 334 ms P-R-T Axes : 038 -07 021 degrees QTc Int : 426 ms NORMAL SINUS RHYTHM NORMAL ECG WHEN COMPARED WITH ECG OF 17-JAN-2016 17:03, NO SIGNIFICANT CHANGE WAS FOUND Confirmed by LOGAN SIMONS MD ([id number]) on 04/30/2019 1:42:32 PM Referred By: Confirmed By:LOGAN SIMONS MD
--- NOTE | 2019-04-30 13:43 | PN ---
Progress Note (short form) - Note Progress Note: surgery pt seen and examined. full consult dictated. 64m with MR, [facility], admitted for lethargy and stomach pain for 48 hours. called initially for kub suggestive of free air and request was made for stat ct to confirm. CT reviewed confirming free air. I suspect pud. Emergency laparotomy booked at 11 :53 am and requested patient by send to [facility]. Spoke with duong of residential real estate agent [employer]aston at 12:35 to get consent. Pt is tachcardic, ill appearing , with neutropenia. Pt still in ED awaiting transport. I am available and awaiting emergent surgery.
[2019-04-30 13:53] LABS: PLATELET ESTIMATE NORMAL
--- NOTE | 2019-04-30 14:14 | CONSULT ---
Consultation: REQUESTING PROVIDER: Dr. Bhat CONSULT REQUEST: We have been asked to medically evaluate this patient for perforated viscous. HISTORY OF PRESENT ILLNESS: The pt is a 64 yo m w/ PMH MR, HTN, DM, b/l LE swelling who was BIBEMS for a 1 day h/o Hypotension (70/51), lethargy and tachycardia. On arrival, bp was noted to be 101/46 with a HR of 96 and a fever to 100.5. CTAP revealed free air under the diaphragm. Surgery was called and the patient was taken to the OR emergently and was sent to the ICU for post op monitoring. Patient received from PACU intubated and sedated. Currently on levo and vaso GTT , NS @ 75. BP stable on pressors REVIEW OF SYSTEMS: unable to obtain 2/2 clinical status/ h/o MR PHYSICAL EXAMINATION Vital Signs - 24 hr 04/30/19 04/30/19 04/30/19 09:00 10:00 10:25 Temperature 100.5 F H Pulse Rate 96 H Pulse Rate [ 109 H Apical] Respiratory 28 H 28 H Rate Blood Pressure 101/46 L Blood Pressure 111/87 [Right Arm] O2 Sat by Pulse 90 L 99 98 Oximetry (%) 04/30/19 04/30/19 04/30/19 11:00 11:30 12:00 Temperature Pulse Rate Pulse Rate [ 102 H 104 H 111 H Apical] Respiratory 24 H 32 H 30 H Rate Blood Pressure Blood Pressure 106/63 104/69 117/67 [Right Arm] O2 Sat by Pulse 98 99 96 Oximetry (%) 04/30/19 04/30/19 04/30/19 12:25 12:56 13:33 Temperature 99 F Pulse Rate Pulse Rate [ 111 H 111 H 101 H Apical] Respiratory 28 H 32 H 32 H Rate Blood Pressure Blood Pressure 117/67 94/60 119/78 [Right Arm] O2 Sat by Pulse 96 98 98 Oximetry (%) GENERAL: Intubated and sedated. EYES: Pupils equal, round and sluggishly reactive to light. LUNGS: Breath sounds equal, clear to auscultation bilaterally. No wheezes, and no crackles. No accessory muscle use. HEART: Regular rate and rhythm, normal S1 and S2 without murmur, rub or gallop. ABDOMEN: Soft, not distended, surgical dressing intact. LOWER EXTREMITIES: 2+ pulses, warm, well-perfused. No calf tenderness. No peripheral edema. NEUROLOGICAL: unable to perform as patient sedated. Laboratory Results - last 24 hr 04/30/19 04/30/19 04/30/19 09:00 09:00 09:00 WBC 3.9 L RBC 4.41 Hgb 12.4 Hct 37.0 MCV 83.9 MCH 28.1 MCHC 33.5 RDW 15.6 Absolute Neuts (auto) 3.0 Neutrophils % 78.2 D Lymphocytes % 15.5 Monocytes % 5.5 Eosinophils % 0.4 D Basophils % 0.4 Nucleated RBC % 0 PT with INR 13.00 INR 1.10 H PTT (Actin FS) 33.3 VBG pH POC VBG pCO2 POC VBG pO2 VBG HCO3 VBG O2 Sat (Rey) VBG Base Excess Sodium Potassium Chloride Carbon Dioxide Anion Gap BUN Creatinine Est GFR (CKD-EPI)AfAm Est GFR (CKD-EPI)NonAf POC Glucometer Random Glucose Lactic Acid Calcium Total Bilirubin AST ALT Alkaline Phosphatase Troponin I 0.02 Total Protein Albumin Urine Color Urine Appearance Urine pH Ur Specific Rossiter Urine Protein Urine Glucose (UA) Urine Ketones Urine Blood Urine Nitrite Urine Bilirubin Urine Urobilinogen Ur Leukocyte Esterase Urine WBC (Auto) Urine RBC (Auto) Urine Casts (Auto) U Epithel Cells (Auto) Urine Bacteria (Auto) Blood Type Antibody Screen Crossmatch IS Only 04/30/19 04/30/19 04/30/19 09:00 09:00 09:00 WBC RBC Hgb Hct MCV MCH MCHC RDW Absolute Neuts (auto) Neutrophils % Lymphocytes % Monocytes % Eosinophils % Basophils % Nucleated RBC % PT with INR INR PTT (Actin FS) VBG pH POC VBG pCO2 POC VBG pO2 VBG HCO3 VBG O2 Sat (Rey) VBG Base Excess Sodium 135 L Potassium 4.2 Chloride 103 Carbon Dioxide 22 Anion Gap 10 BUN 22.5 H Creatinine 1.4 H Est GFR (CKD-EPI)AfAm 61.10 Est GFR (CKD-EPI)NonAf 52.72 POC Glucometer Random Glucose 147 H Lactic Acid 3.8 H* Calcium 8.7 Total Bilirubin 0.6 AST 27 ALT 31 Alkaline Phosphatase 51 Troponin I Total Protein 6.4 Albumin 2.9 L Urine Color Urine Appearance Urine pH Ur Specific Rossiter Urine Protein Urine Glucose (UA) Urine Ketones Urine Blood Urine Nitrite Urine Bilirubin Urine Urobilinogen Ur Leukocyte Esterase Urine WBC (Auto) Urine RBC (Auto) Urine Casts (Auto) U Epithel Cells (Auto) Urine Bacteria (Auto) Blood Type A POSITIVE Antibody Screen Negative Crossmatch IS Only See Detail 04/30/19 04/30/19 04/30/19 09:00 09:43 12:30 WBC RBC Hgb Hct MCV MCH MCHC RDW Absolute Neuts (auto) Neutrophils % Lymphocytes % Monocytes % Eosinophils % Basophils % Nucleated RBC % PT with INR INR PTT (Actin FS) VBG pH 7.42 H POC VBG pCO2 29.2 L POC VBG pO2 59.1 H VBG HCO3 18.4 L VBG O2 Sat (Rey) 89.7 H VBG Base Excess -4.6 L Sodium Potassium Chloride Carbon Dioxide Anion Gap BUN Creatinine Est GFR (CKD-EPI)AfAm Est GFR (CKD-EPI)NonAf POC Glucometer 152 Random Glucose Lactic Acid Calcium Total Bilirubin AST ALT Alkaline Phosphatase Troponin I Total Protein Albumin Urine Color Yellow Urine Appearance Clear Urine pH 6.0 Ur Specific Rossiter 1.014 Urine Protein Negative Urine Glucose (UA) Trace Urine Ketones Trace H Urine Blood 1+ H Urine Nitrite Negative Urine Bilirubin Negative Urine Urobilinogen 0.2 Ur Leukocyte Esterase Negative Urine WBC (Auto) 3 Urine RBC (Auto) 4 Urine Casts (Auto) 4 U Epithel Cells (Auto) 1.3 Urine Bacteria (Auto) 7.0 Blood Type Antibody Screen Crossmatch IS Only ASSESSMENT/PLAN: The pt is a 64 yo m w/ PMH MR, HTN, DM, b/l LE swelling who was BIBEMS for a 1 day h/o Hypotension (70/51), lethargy and tachycardia. Patient transferred to ICU intubated for post op management. #Neuro -intubated and sedated on propofol #Pulmonary -intubated -no other active pulm issues -ABG shows high PaO2, FiO2 decreased to 60 -weaning trials once stable #Cardio -BP stable of levo GTT and vaso GTT -will attempt to down-titrate #GI -Patient had ex lap for repair of perforated duodenal ulcer (POD 0) -NGT place surgically. per surgery NGT SHOULD NOT BE REMOVED OR MANIPULATED for 1 week -Patient on protonix GTT -s/p flagyl in ED -placed on zosyn and fluconazole post op -if intra op cultures negative for yeast, ok to DC fluconazole per surgery #Renal -post-op ABG shows metabolic acidosis; patient had a lactic acidosis pre op -on NS @ 75 -will order rpt lactate #Prophy -protonix gtt -lovenox 40 sq for DVT prophy per surgery #Dispo -admit ICU -We will continue to follow the patient. Thank you for this consultative opportunity. Visit type - Emergency Visit Emergency Visit: Yes ED Registration Date: 04/30/19 Care time: The patient presented to the Emergency Department on the above date and was hospitalized for further evaluation of their emergent condition. - New Patient This patient is new to me today: Yes Date on this admission: 04/30/19 - Critical Care Critical Care patient: Yes Total Critical Care Time (in minutes): 60 Critical Care Statement: The care of this patient involved high complexity decision making to prevent further life threatening deterioration of the patient 's condition and/or to evaluate & treat vital organ system(s) failure or risk of failure. ATTENDING PHYSICIAN STATEMENT I saw and evaluated the patient. I reviewed the resident's note and discussed the case with the resident. I agree with the resident's findings and plan as documented. SUBJECTIVE: OBJECTIVE: ASSESSMENT AND PLAN:
[2019-04-30] MEDS ORDERED: ONDANSETRON 4 MG/2 ML VIAL IVPUSH PRN ×2 (14:21→16:45)
[2019-04-30] MEDS ORDERED: VASOPRESSIN 20 UNITS/ML VIAL IV ONE ×3 (14:27→16:21)
--- NOTE | 2019-04-30 14:29 | HP ---
CHIEF COMPLAINT:lethargy, hypotension PCP: Dr. Bill HISTORY OF PRESENT ILLNESS: Patient is a 64 year old male with past medical history of MR, HTN, DM, new fluid restriction 2/2 BLE swelling, was brought in from [facility] due to lethargy, hypotension, and tachycardia noted today. Patient unable to provide any history due to MR, aide at bedside to provide information. As per the aide, she came in this morning to look after the patient, but noted him to be lethargic and diaphoretic. She took his BP and was noted to be hypotensive with SBP 60s-70s. She immediately called the nurse, vitals were verified and patient was immediately brought to the ED. ER course was notable for: (1)CTAP - pneumoperitoneum consistent with a perforated viscus. Thickening of a distal small bowel loop up to and including the terminal ileum suggestive of inflammatory/infectious process. There is also nondistention of the proximal small bowel loops. Cannot rule out wall thickening. (2)Lactic acid 3.8, BUN/Cr 22/1.4 (3) Recent Travel:denies PAST MEDICAL HISTORY: MR HTN DM Social History: Smoking:denies Alcohol:denies Drugs: denies Allergies No Known Allergies Allergy (Verified 04/30/19 09:00) HOME MEDICATIONS: Home Medications Medication Instructions Recorded Amlodipine Besylate [Norvasc -] 10 mg PO HS 07/29/17 Aspirin [Aspirin EC] 81 mg PO DAILY 07/29/17 Atenolol [Tenormin -] 50 mg PO DAILY 07/29/17 Atorvastatin Ca [Lipitor] 20 mg PO HS 07/29/17 Clotrimazole/Betamethasone Dip 1 applic TP BID 07/29/17 [Clotrimazole-Betamethasone Crm] Desonide 1 applic TP BID 07/29/17 Divalproex [Depakote -] 1,500 mg PO DAILY 07/29/17 Docusate Sodium [Colace -] 100 mg PO TID 07/29/17 Fluocinolone Acetonide 1 applic TP BID 07/29/17 Fluticasone Propionate [Flovent 50 mcg IH BID 07/29/17 Diskus] Ketoconozole 2% Cream [Nizoral 2% 1 applic TP BID 07/29/17 Cream -] Lisinopril [Prinivil -] 40 mg PO DAILY 07/29/17 Loratadine [Claritin -] 10 mg PO DAILY 07/29/17 Naproxen [Naprosyn -] 375 mg PO BID PRN 07/29/17 Olanzapine [Zyprexa -] 10 mg PO BID 07/29/17 Pioglitazone HCl [Actos] 15 mg PO DAILY 07/29/17 metFORMIN HCL [Metformin HCl ER] 1,000 mg PO BID 07/29/17 Diphenhydramine HCl/Zinc Acet 1 applic TP TID #1 tube 10/04/17 [Benadryl 2% Cream] Cephalexin Monohydrate [Keflex -] 250 mg PO Q8H #21 capsule 01/05/19 REVIEW OF SYSTEMS CONSTITUTIONAL: Absent: fever, chills, diaphoresis, generalized weakness, malaise, loss of appetite, weight change HEENT: Absent: rhinorrhea, nasal congestion, throat pain, throat swelling, difficulty swallowing, mouth swelling, ear pain, eye pain, visual changes CARDIOVASCULAR: Absent: chest pain, syncope, palpitations, irregular heart rate, lightheadedness , peripheral edema RESPIRATORY: Absent: cough, shortness of breath, dyspnea with exertion, orthopnea, wheezing, stridor, hemoptysis GASTROINTESTINAL: Absent: abdominal pain, abdominal distension, nausea, vomiting, diarrhea, constipation, melena, hematochezia GENITOURINARY: Absent: dysuria, frequency, urgency, hesitancy, hematuria, flank pain, genital pain MUSCULOSKELETAL: Absent: myalgia, arthralgia, joint swelling, back pain, neck pain SKIN: Absent: rash, itching, pallor HEMATOLOGIC/IMMUNOLOGIC: Absent: easy bleeding, easy bruising, lymphadenopathy, frequent infections ENDOCRINE: Absent: unexplained weight gain, unexplained weight loss, heat intolerance, cold intolerance NEUROLOGIC: Absent: headache, focal weakness or paresthesias, dizziness, unsteady gait, seizure, mental status changes, bladder or bowel incontinence PSYCHIATRIC: Absent: anxiety, depression, suicidal or homicidal ideation, hallucinations. PHYSICAL EXAMINATION Vital Signs - 24 hr 04/30/19 04/30/19 04/30/19 09:00 10:00 10:25 Temperature 100.5 F H Pulse Rate 96 H Pulse Rate [ 109 H Apical] Respiratory 28 H 28 H Rate Blood Pressure 101/46 L Blood Pressure 111/87 [Right Arm] O2 Sat by Pulse 90 L 99 98 Oximetry (%) 04/30/19 04/30/19 04/30/19 11:00 11:30 12:00 Temperature Pulse Rate Pulse Rate [ 102 H 104 H 111 H Apical] Respiratory 24 H 32 H 30 H Rate Blood Pressure Blood Pressure 106/63 104/69 117/67 [Right Arm] O2 Sat by Pulse 98 99 96 Oximetry (%) 04/30/19 04/30/19 04/30/19 12:25 12:56 13:33 Temperature 99 F Pulse Rate Pulse Rate [ 111 H 111 H 101 H Apical] Respiratory 28 H 32 H 32 H Rate Blood Pressure Blood Pressure 117/67 94/60 119/78 [Right Arm] O2 Sat by Pulse 96 98 98 Oximetry (%) GENERAL: Awake and alert, in no acute distress. HEAD: Normal with no signs of trauma. EYES: PERRLA, EOMI, sclera anicteric, conjunctiva clear. EARS, NOSE, THROAT: Dry mucous membranes. NECK: Normal range of motion, supple. LUNGS: Breath sounds equal, clear to auscultation bilaterally. HEART: Tachycardic, normal S1 and S2 without murmur, rub or gallop. ABDOMEN: Soft, protuberant, no grimace to palpation, normoactive bowel sounds EXTREMITIES: Moves all extremities independently; 1+ BLE swelling to mid sanchez NEUROLOGICAL: non-verbal, does not follow commands, localizes to pain throughout SKIN: Warm, dry, normal turgor. Laboratory Results - last 24 hr 04/30/19 04/30/19 04/30/19 09:00 09:00 09:00 WBC 3.9 L RBC 4.41 Hgb 12.4 Hct 37.0 MCV 83.9 MCH 28.1 MCHC 33.5 RDW 15.6 Absolute Neuts (auto) 3.0 Neutrophils % 78.2 D Lymphocytes % 15.5 Monocytes % 5.5 Eosinophils % 0.4 D Basophils % 0.4 Nucleated RBC % 0 PT with INR 13.00 INR 1.10 H PTT (Actin FS) 33.3 VBG pH POC VBG pCO2 POC VBG pO2 VBG HCO3 VBG O2 Sat (Rey) VBG Base Excess Sodium Potassium Chloride Carbon Dioxide Anion Gap BUN Creatinine Est GFR (CKD-EPI)AfAm Est GFR (CKD-EPI)NonAf POC Glucometer Random Glucose Lactic Acid Calcium Total Bilirubin AST ALT Alkaline Phosphatase Troponin I 0.02 Total Protein Albumin Urine Color Urine Appearance Urine pH Ur Specific [place] Urine Protein Urine Glucose (UA) Urine Ketones Urine Blood Urine Nitrite Urine Bilirubin Urine Urobilinogen Ur Leukocyte Esterase Urine WBC (Auto) Urine RBC (Auto) Urine Casts (Auto) U Epithel Cells (Auto) Urine Bacteria (Auto) Blood Type Antibody Screen Crossmatch IS Only 04/30/19 04/30/19 04/30/19 09:00 09:00 09:00 WBC RBC Hgb Hct MCV MCH MCHC RDW Absolute Neuts (auto) Neutrophils % Lymphocytes % Monocytes % Eosinophils % Basophils % Nucleated RBC % PT with INR INR PTT (Actin FS) VBG pH POC VBG pCO2 POC VBG pO2 VBG HCO3 VBG O2 Sat (Rey) VBG Base Excess Sodium 135 L Potassium 4.2 Chloride 103 Carbon Dioxide 22 Anion Gap 10 BUN 22.5 H Creatinine 1.4 H Est GFR (CKD-EPI)AfAm 61.10 Est GFR (CKD-EPI)NonAf 52.72 POC Glucometer Random Glucose 147 H Lactic Acid 3.8 H* Calcium 8.7 Total Bilirubin 0.6 AST 27 ALT 31 Alkaline Phosphatase 51 Troponin I Total Protein 6.4 Albumin 2.9 L Urine Color Urine Appearance Urine pH Ur Specific [place] Urine Protein Urine Glucose (UA) Urine Ketones Urine Blood Urine Nitrite Urine Bilirubin Urine Urobilinogen Ur Leukocyte Esterase Urine WBC (Auto) Urine RBC (Auto) Urine Casts (Auto) U Epithel Cells (Auto) Urine Bacteria (Auto) Blood Type A POSITIVE Antibody Screen Negative Crossmatch IS Only See Detail 04/30/19 04/30/19 04/30/19 09:00 09:43 12:30 WBC RBC Hgb Hct MCV MCH MCHC RDW Absolute Neuts (auto) Neutrophils % Lymphocytes % Monocytes % Eosinophils % Basophils % Nucleated RBC % PT with INR INR PTT (Actin FS) VBG pH 7.42 H POC VBG pCO2 29.2 L POC VBG pO2 59.1 H VBG HCO3 18.4 L VBG O2 Sat (Rey) 89.7 H VBG Base Excess -4.6 L Sodium Potassium Chloride Carbon Dioxide Anion Gap BUN Creatinine Est GFR (CKD-EPI)AfAm Est GFR (CKD-EPI)NonAf POC Glucometer 152 Random Glucose Lactic Acid Calcium Total Bilirubin AST ALT Alkaline Phosphatase Troponin I Total Protein Albumin Urine Color Yellow Urine Appearance Clear Urine pH 6.0 Ur Specific [place] 1.014 Urine Protein Negative Urine Glucose (UA) Trace Urine Ketones Trace H Urine Blood 1+ H Urine Nitrite Negative Urine Bilirubin Negative Urine Urobilinogen 0.2 Ur Leukocyte Esterase Negative Urine WBC (Auto) 3 Urine RBC (Auto) 4 Urine Casts (Auto) 4 U Epithel Cells (Auto) 1.3 Urine Bacteria (Auto) 7.0 Blood Type Antibody Screen Crossmatch IS Only ASSESSMENT/PLAN: Patient is a 64 year old male with past medical history of MR, HTN, DM, new fluid restriction 2/2 BLE swelling, was brought in from [facility] due to lethargy, hypotension, and tachycardia noted today. #Hemodynamic instability likely 2/2 pneumoperitoneum -CTAP: pneumoperitoneum consistent with a perforated viscus. Thickening of a distal small bowel loop up to and including the terminal ileum suggestive of inflammatory/infectious process. There is also nondistention of the proximal small bowel loops. Cannot rule out wall thickening. -Surgery (Dr. Bhat)consulted. Recs appreciated -For surgery today -IVF -NPO #DM -Insulin sliding scale implemented -BGM TIDAC #HTN -patient hypotensive, hold BP meds #FEN -IV LR @75cc/hr -Electrolytes wnl, routine bmp monitoring -NPO #Prophylaxis -SCDs #Disposition -full code -admit to ICU for closer monitoring Visit type - Emergency Visit Emergency Visit: Yes ED Registration Date: 04/30/19 Care time: The patient presented to the Emergency Department on the above date and was hospitalized for further evaluation of their emergent condition. - New Patient This patient is new to me today: Yes Date on this admission: 04/30/19 - Critical Care Critical Care patient: No ATTENDING PHYSICIAN STATEMENT I saw and evaluated the patient. I reviewed the resident's note and discussed the case with the resident. I agree with the resident's findings and plan as documented. SUBJECTIVE: OBJECTIVE: ASSESSMENT AND PLAN:
[2019-04-30] MEDS ORDERED: LACTATED RINGERS SOLUTION 1,000 ML IV SCH ×3 (14:30→17:15)
--- NOTE | 2019-04-30 14:58 | CONS ---
DATE OF CONSULTATION: 04/30/2019 REASON FOR CONSULTATION: Perforated viscus. This is an emergency consultation at the request of the emergency room physician. 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 He had a CAT scan of his abdomen and pelvis after an x-ray suggested free air. At my request, a STAT CAT scan was done, which confirmed the free air at which point arrangements were made to proceed with an exploratory laparotomy. Patient's duong of [facility] was contacted who was agreeable. PAST MEDICAL HISTORY: Significant for mental retardation, hypertension, diabetes mellitus. PAST SURGICAL HISTORY: Nil. ALLERGIES: No known drug allergies. HOME MEDICATIONS: Have been reviewed and include Naprosyn, aspirin, Norvasc, atenolol, Lipitor. There is no mention of a Protonix pump inhibitor. REVIEW OF SYSTEMS: Difficult to obtain. PHYSICAL EXAMINATION: General: This is an obese 64-year-old male. He appears to be sick. Vital Signs: He is currently afebrile with a maximum temperature of 100.5, his heart rate is 101, his blood pressure is 119/78. At its slowest point, it was 94/60. HEENT: His head is normocephalic. Sclerae anicteric. Neck: Supple. Chest: Clear. Abdomen: Soft. It is nondistended. There is generalized tenderness more in the upper abdomen. There are no surgical scars. Extremities: Edema. DIAGNOSTIC DATA: Review of his laboratory, his white blood cell count is troubling low at 3.9. His coagulation profile is unremarkable. His lactic acid is elevated at 3.8. His urinalysis is unremarkable. Review of his imaging, he has a CAT scan of his abdomen and pelvis, which has now been officially read consistent with pneumoperitoneum and perforated viscus. They notice thickening of the terminal ileum suggesting inflammatory process, possible wall thickening of the proximal small and large bowel. ASSESSMENT: This is a 64-year-old male on nonsteroidal anti-inflammatory drug presents with perforated viscus. I suspect that this is peptic ulcer disease. Also in the differential would be perforated diverticulitis as well as perforated small bowel less likely. PLAN: I spoke with his guardian, and he is agreeable to surgery. He will undergo exploratory laparotomy and whatever means are necessary to deal with the perforation. If this is colon, he will end up with a colostomy. If this is the stomach then it will be a Jack patch procedure, and if it is his small bowel likely would be a resection. I explained the risks and benefits, and the duong of the [facility] was agreeable. He wanted anything done that was within standard of care. At this point, the patient has received Zosyn. He has been hydrated by the emergency room, and we will proceed with surgery. DO IVAN ROBLES/[id number]
[2019-04-30] MEDS ORDERED: BUPIVACAINE HCL/PF 0.25% (2.5MG/ML) 10 ML VIAL ONE (15:20)
[2019-04-30] MEDS ORDERED: BUPIVACAINE HCL/PF 0.25% (2.5MG/ML) 10 ML VIAL IJ ONE ×2 (15:27)
[2019-04-30] MEDS ORDERED: FUROSEMIDE 40 MG/4 ML INJECTABLE VIAL ONE (15:40)
--- NOTE | 2019-04-30 15:47 | PN ---
Teaching Attending Note Name of Resident: Melissa Ruiz ATTENDING PHYSICIAN STATEMENT I saw and evaluated the patient. I reviewed the resident's note and discussed the case with the resident. I agree with the resident's findings and plan as documented. SUBJECTIVE: This is a 64 year old man, resident of [place], with a history of MR, HTN, type 2 DM who was sent to the ED because of lethargy, hypotension, and tachycardia. He was found this morning to be lethargic and diaphoretic. His systolic BP was found to be 60-70s. He is unable to provide any history. OBJECTIVE: Vital Signs Period Temp Pulse Resp BP Sys/Booth Pulse Ox Last 24 Hr 99 F-100.5 F 96-111 24-32 94-119/46-87 90-99 HEART: S1S2, tachycardic LUNGS: Clear, poor effort ABDOMEN: Soft, distended, hypoactive BS EXTREMITIES: 1+ edema Laboratory Tests 04/30/19 04/30/19 04/30/19 09:00 09:00 09:00 WBC 3.9 L RBC 4.41 Hgb 12.4 Hct 37.0 MCV 83.9 MCH 28.1 MCHC 33.5 RDW 15.6 Plt Count 211 MPV 9.9 Absolute Neuts (auto) 3.0 Neutrophils % 78.2 D Lymphocytes % 15.5 Monocytes % 5.5 Eosinophils % 0.4 D Basophils % 0.4 Nucleated RBC % 0 Platelet Estimate Normal Platelet Comment Present PT with INR 13.00 INR 1.10 H PTT (Actin FS) 33.3 VBG pH POC VBG pCO2 POC VBG pO2 VBG HCO3 VBG O2 Sat (Rey) VBG Base Excess Sodium Potassium Chloride Carbon Dioxide Anion Gap BUN Creatinine Est GFR (CKD-EPI)AfAm Est GFR (CKD-EPI)NonAf POC Glucometer Random Glucose Lactic Acid Calcium Total Bilirubin AST ALT Alkaline Phosphatase Troponin I 0.02 Total Protein Albumin Urine Color Urine Appearance Urine pH Ur Specific [place] Urine Protein Urine Glucose (UA) Urine Ketones Urine Blood Urine Nitrite Urine Bilirubin Urine Urobilinogen Ur Leukocyte Esterase Urine WBC (Auto) Urine RBC (Auto) Urine Casts (Auto) U Epithel Cells (Auto) Urine Bacteria (Auto) Blood Type Antibody Screen Crossmatch IS Only 04/30/19 04/30/19 04/30/19 09:00 09:00 09:00 WBC RBC Hgb Hct MCV MCH MCHC RDW Plt Count MPV Absolute Neuts (auto) Neutrophils % Lymphocytes % Monocytes % Eosinophils % Basophils % Nucleated RBC % Platelet Estimate Platelet Comment PT with INR INR PTT (Actin FS) VBG pH POC VBG pCO2 POC VBG pO2 VBG HCO3 VBG O2 Sat (Rey) VBG Base Excess Sodium 135 L Potassium 4.2 Chloride 103 Carbon Dioxide 22 Anion Gap 10 BUN 22.5 H Creatinine 1.4 H Est GFR (CKD-EPI)AfAm 61.10 Est GFR (CKD-EPI)NonAf 52.72 POC Glucometer Random Glucose 147 H Lactic Acid 3.8 H* Calcium 8.7 Total Bilirubin 0.6 AST 27 ALT 31 Alkaline Phosphatase 51 Troponin I Total Protein 6.4 Albumin 2.9 L Urine Color Urine Appearance Urine pH Ur Specific [place] Urine Protein Urine Glucose (UA) Urine Ketones Urine Blood Urine Nitrite Urine Bilirubin Urine Urobilinogen Ur Leukocyte Esterase Urine WBC (Auto) Urine RBC (Auto) Urine Casts (Auto) U Epithel Cells (Auto) Urine Bacteria (Auto) Blood Type A POSITIVE Antibody Screen Negative Crossmatch IS Only See Detail 04/30/19 04/30/19 04/30/19 09:00 09:43 12:30 WBC RBC Hgb Hct MCV MCH MCHC RDW Plt Count MPV Absolute Neuts (auto) Neutrophils % Lymphocytes % Monocytes % Eosinophils % Basophils % Nucleated RBC % Platelet Estimate Platelet Comment PT with INR INR PTT (Actin FS) VBG pH 7.42 H POC VBG pCO2 29.2 L POC VBG pO2 59.1 H VBG HCO3 18.4 L VBG O2 Sat (Rey) 89.7 H VBG Base Excess -4.6 L Sodium Potassium Chloride Carbon Dioxide Anion Gap BUN Creatinine Est GFR (CKD-EPI)AfAm Est GFR (CKD-EPI)NonAf POC Glucometer 152 Random Glucose Lactic Acid Calcium Total Bilirubin AST ALT Alkaline Phosphatase Troponin I Total Protein Albumin Urine Color Yellow Urine Appearance Clear Urine pH 6.0 Ur Specific [place] 1.014 Urine Protein Negative Urine Glucose (UA) Trace Urine Ketones Trace H Urine Blood 1+ H Urine Nitrite Negative Urine Bilirubin Negative Urine Urobilinogen 0.2 Ur Leukocyte Esterase Negative Urine WBC (Auto) 3 Urine RBC (Auto) 4 Urine Casts (Auto) 4 U Epithel Cells (Auto) 1.3 Urine Bacteria (Auto) 7.0 Blood Type Antibody Screen Crossmatch IS Only Home Medications Medication Instructions Recorded Amlodipine Besylate [Norvasc -] 10 mg PO HS 07/29/17 Aspirin [Aspirin EC] 81 mg PO DAILY 07/29/17 Atenolol [Tenormin -] 50 mg PO DAILY 07/29/17 Atorvastatin Ca [Lipitor] 20 mg PO HS 07/29/17 Clotrimazole/Betamethasone Dip 1 applic TP BID 07/29/17 [Clotrimazole-Betamethasone Crm] Desonide 1 applic TP BID 07/29/17 Divalproex [Depakote -] 1,500 mg PO DAILY 07/29/17 Docusate Sodium [Colace -] 100 mg PO TID 07/29/17 Fluocinolone Acetonide 1 applic TP BID 07/29/17 Fluticasone Propionate [Flovent 50 mcg IH BID 07/29/17 Diskus] Ketoconozole 2% Cream [Nizoral 2% 1 applic TP BID 07/29/17 Cream -] Lisinopril [Prinivil -] 40 mg PO DAILY 07/29/17 Loratadine [Claritin -] 10 mg PO DAILY 07/29/17 Naproxen [Naprosyn -] 375 mg PO BID PRN 07/29/17 Olanzapine [Zyprexa -] 10 mg PO BID 07/29/17 Pioglitazone HCl [Actos] 15 mg PO DAILY 07/29/17 metFORMIN HCL [Metformin HCl ER] 1,000 mg PO BID 07/29/17 Diphenhydramine HCl/Zinc Acet 1 applic TP TID #1 tube 10/04/17 [Benadryl 2% Cream] Cephalexin Monohydrate [Keflex -] 250 mg PO Q8H #21 capsule 01/05/19 ASSESSMENT AND PLAN: This is a 64 year old man with a history of MR, HTN, type 2 DM who presented to the ED from [place] with lethargy, hypotension, and tachycardia. 1. Severe sepsis (tachycardia, tachypnea, lactic acid 3.8) secondary to perforated viscus - CTAP shows pneumoperitoneum, thickening of distal small bowel loop including terminal ileum - Zosyn, Vancomycin, Flagyl given in ED - NPO, IV fluid - Surgery consult 2. Acute kidney injury secondary to sepsis - IV fluid - Monitor BUN, creatinine 3. HTN - Hold antihypertensives secondary to hypotension 4. Type 2 DM - Hold diabetic meds - Fingersticks with Novolog sliding scale post op 5. Mental retardation
[2019-04-30] MEDS ORDERED: MIDAZOLAM HCL 2 MG/2 ML SINGLE DOSE VIAL ONE (15:52)
--- NOTE | 2019-04-30 16:19 | OP ---
Operative Note - Note: Operative Date: 04/30/19 Pre-Operative Diagnosis: perforated viscous Operation: exploratory laparotomy, rohan patch repair perforated duodenal ulcer , lavage, retro-rectus block Findings: 2cm friable anterior duodenal ulcer, inflammation and exudate with vegetable matter and thickening at root of mesentery Post-Operative Diagnosis: Same as Pre-op Surgeon: Lee Bhat Lead Technical Writer: Diane Hines Anesthesiologist/PROGRAM SCHEDULE CLERK: Milly Ernst Anesthesia: General Specimens Removed: peritoneal fluid for culture Estimated Blood Loss (mls): 20 Drains & Tubes with Location: lex anterior to duodenum Operative Report Dictated: Yes
[2019-04-30] MEDS ORDERED: NOREPINEPHRINE BITARTRATE 4 MG/4 ML ML IV ONE ×2 (16:22→19:57)
[2019-04-30] MEDS ORDERED: INSULIN SLIDING SCALE (NOVOLOG) 1 VIAL SQ SCH (16:30)
[2019-04-30] MEDS ORDERED: FLUCONAZOLE 200 MG/D5W 100 ML IVPB SCH (16:45)
--- NOTE | 2019-04-30 17:22 | OP ---
DATE OF OPERATION: 04/30/2019 PREOPERATIVE DIAGNOSES: Perforated viscus. POSTOPERATIVE DIAGNOSES: Perforated viscus. PROCEDURE: Exploratory laparotomy, Jack patch repair of perforated duodenal ulcer, lavage, rectorectus block done by the first assistant manager. SURGEON: Lee Bhat DO POCKET SECRETARY ASSEMBLER: TURNER Schafer ANESTHESIOLOGIST: Milly Ernst MD FINDINGS: A thick and inflamed duodenum with a 2-cm anterior ulcer with exudate and vegetable matter noted within the upper portion of the abdomen. Inflammatory fluid over the liver as well as spleen. Some in the pelvis with thickening of the mesenteric root. DRAINS: A Reji-Sloan drain over the duodenum at the repair site. BLOOD LOSS: Minimal. DISPOSITION: Intensive care unit in guarded condition. 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 He had a CAT scan of his abdomen and pelvis showing free air suggestive of perforated viscus. He was started on antibiotic, hydrated, and brought to the operating room for exploratory surgery. DESCRIPTION OF PROCEDURE: The patient was placed in supine position. After general anesthesia was initiated, the abdomen was prepped and draped in sterile fashion. A Banuelos catheter was inserted. A vertical incision was made from the xiphoid down to the umbilicus. Scalpel was used to go through skin and subcutaneous tissue. The fascia was opened in the midline. The peritoneum was then entered sharply. Upon entering the abdominal cavity, seropurulent fluid was identified. A sample was sent to Microbiology for Gram stain and culture. Hope sucker was then placed, and approximately 2 L of seropurulent fluid was drained. The lower pelvis was palpated through this upper incision, and the sigmoid colon appeared to be without mass. There were no obvious masses in the pelvis and no significant pus noted in the pelvis as well. The small and large bowel was eviscerated. The root appeared to be thickened with possible mass, who was probably inflammatory in nature. It was not pulsatile. I felt this was likely a secondary inflammatory process. The stomach was identified as well as the transverse colon. The stomach was pulled down into view. It was followed to the duodenum. There was omental fat over the duodenum, which was carefully teased off exposing a large 2-cm ulcer in the anterior portion of the first portion of the duodenum. This was quite friable and clearly the source of the patient's pathology. Consideration was made towards biopsy, but this was felt to likely make the hole larger and more difficult to manage. Vigorous lavage was done in all 4 quadrants. The liver was palpated. There were no masses. The lower abdomen could not be visualized due to the nature of the incision. At this point, a modified omental patch repair/Jack patch repair was done. Three 0 silk sutures were placed across the defect with care not to catch the back wall of the duodenum. This was tied to closely approximate the anterior friable surface. At this point, the anesthesiologist placed a nasogastric tube into the midportion of the stomach under my direct guidance. Air insufflation was done in order to inflate the stomach as well as the area of repair in the duodenum while it was under water. There was no air leak noted suggesting that the repair was adequate. Next, a tongue of omentum was taken off of some stomach lesser curvature and flipped over to the location of the suture repair. The tails of the suture were then used to secure the omentum and omental patch-type feature. Next, a tongue of omentum was taken off the transverse colon. It too was laid over this area and tacked down to the duodenum providing an additional patch. A Reji-Sloan drain was brought out through the right mid abdomen and placed over the repair site to monitor and drain any potential leakage. At this point, further lavage was done in all 4 quadrants. Everything was clear. A retrorectus block was then done by the first assistant manager, Diane Hines, to help with postoperative analgesia. This was only using Marcaine and not steroid due to the patient's underlying pathology. The fascia was then closed with a combination of running PDS sutures and interrupted No. 1 Vicryl. The wound was left open and packed with iodoform. Dry dressing was placed. Overall, the patient tolerated the procedure well. He had some hypotension and did require some pushes of pressors by the anesthesiologist. He was possibly to be extubated and was to be sent to the intensive care unit. He would remain strict n.p.o. He would need a nasogastric tube decompression for 1 week. He would continue with a Reji-Sloan drain, and he would be treated with a Protonix drip and held from all NSAIDs. He would get Zosyn and Diflucan to cover for yeast and stomach leyla until Gram stains are back. Overall, the patient's prognosis is guarded. Blood loss was minimal. DO IVAN ROBLES/[id number] MTDD
[2019-04-30 17:39] LABS: ARTERIAL BLD GAS O2 SATURATION 98.7 % (95-98); ARTERIAL BLOOD GAS BASE EXCESS -11.8 meq/l (-2-2); ARTERIAL BLOOD GAS PCO2 36.3 mmHg (35-45); ARTERIAL BLOOD GAS PO2 223 mmHg (80-100); ARTERIAL BLOOD GAS pH 7.23 (7.35-7.45)
[2019-04-30 18:28] LABS: HEMATOCRIT 32.5 % (35.4-49); HEMOGLOBIN 10.8 GM/dL (11.7-16.9); MCH 28.5 pg (25.7-33.7); MCHC 33.3 g/dl (32.0-35.9); MEAN CELL VOLUME 85.8 fl (80-96); MEAN PLT VOLUME 9.9 fl (7.5-11.1); PLATELET COUNT 179 K/MM3 (134-434); RBC 3.79 M/mm3 (4.00-5.60); RDW 15.5 % (11.9-15.9); WHITE BLOOD COUNT 11.9 K/mm3 (4.0-10.0)
[2019-04-30] MEDS ORDERED: SODIUM BICARBONATE 8.4% 50 MEQ/50 ML VIAL IV ONE (18:33)
[2019-04-30] MEDS ORDERED: SODIUM BICARBONATE 8.4% 50 MEQ/50 ML VIAL ONE (18:36)
[2019-04-30 19:00] LABS: BLOOD UREA NITROGEN 19.7 mg/dL (7-18); CREATININE 1.1 mg/dL (0.55-1.3); POTASSIUM 4.6 mmol/L (3.5-5.1)
[2019-04-30 19:03] LABS: INR 1.34 (0.83-1.09); PROTHROMBIN TIME (PATIENT) 15.8 SEC (9.7-13.0)
[2019-04-30] MEDS ORDERED: MUPIROCIN 2% TOPICAL OINTMENT FOR DECOLONIZATION NS SCH ×2 (22:00)
[2019-04-30] MEDS ORDERED: CHLORHEXIDINE GLUCONATE 4% CLEANSER FOR DECOLONIZATION TP SCH ×2 (22:00)
[2019-04-30] MEDS ORDERED: PIPERACILLIN/TAZOBACTAM 3.375 GM VIAL IVPB ONE (22:11)
[2019-04-30] MEDS ORDERED: DEXTROSE 5%-WATER - 50 ML IVPB ONE (22:12)
[2019-04-30] MEDS: PIPERACILLIN/TAZOB 3.375 GM 3.375 GM in DEXTROSE 5%-WATER - 50 ML IVPB SCH (22:14)
[2019-04-30] MEDS: FLUCONAZOLE 200 MG/NS 100 ML IVPB SCH (22:15)
[2019-04-30] MEDS: NOREPINEPHRINE BITARTRATE 4,000 MCG in DEXTROSE 5%-WATER - 496 ML IV SCH (22:21)
[2019-04-30] MEDS: VASOPRESSIN 50 UNITS in SODIUM CHLORIDE 97.5 ML IVPB SCH (22:24)
[2019-04-30] MEDS: MUPIROCIN 2% TOPICAL OINTMENT FOR DECOLONIZATION NS SCH (22:26)
[2019-04-30] MEDS: PANTOPRAZOLE SODIUM 80 MG in SODIUM CHLORIDE 100 ML IVPB SCH (22:29)
[2019-04-30] MEDS: PROPOFOL 1,000,000 MCG/100 ML VIAL IVPB SCH (22:30)
[2019-05-01] MEDS: VASOPRESSIN 50 UNITS in SODIUM CHLORIDE 97.5 ML IVPB SCH ×2 (01:07→21:14)
[2019-05-01] MEDS: NOREPINEPHRINE BITARTRATE 4,000 MCG in DEXTROSE 5%-WATER - 496 ML IV SCH ×2 (01:09→21:13)
[2019-05-01] MEDS: PIPERACILLIN/TAZOB 3.375 GM 3.375 GM in DEXTROSE 5%-WATER - 50 ML IVPB SCH ×6 (01:11→21:14)
[2019-05-01] MEDS ORDERED: NOREPINEPHRINE BITARTRATE 4 MG/4 ML ML IV ONE (06:41)
[2019-05-01 06:42] LABS: BASO % 0.1 % (0-2.0); EOS % 0.1 % (0-4.5); HEMOGLOBIN 10.9 GM/dL (11.7-16.9); MCH 28.1 pg (25.7-33.7); MCHC 32.2 g/dl (32.0-35.9); MEAN CELL VOLUME 87.3 fl (80-96); MEAN PLT VOLUME 10.5 fl (7.5-11.1); MONO % 10.7 % (3.8-10.2); NEUT % 83.1 % (42.8-82.8); PLATELET COUNT 156 K/MM3 (134-434); RBC 3.89 M/mm3 (4.00-5.60); RDW 15.9 % (11.9-15.9); WHITE BLOOD COUNT 22.3 K/mm3 (4.0-10.0)
[2019-05-01] MEDS: INSULIN SLIDING SCALE (NOVOLOG) 1 VIAL SQ SCH ×3 (07:06→17:01)
[2019-05-01 07:22] LABS: ALBUMIN 1.9 g/dl (3.4-5.0); BILIRUBIN,TOTAL 0.7 mg/dL (0.2-1); BLOOD UREA NITROGEN 25.4 mg/dL (7-18); CREATININE 1.9 mg/dL (0.55-1.3); MAGNESIUM 1.5 mg/dL (1.8-2.4); PHOSPHOROUS 6.6 mg/dL (2.5-4.9); POTASSIUM 5.5 mmol/L (3.5-5.1); TOT PROT 4.5 g/dl (6.4-8.2)
[2019-05-01] MEDS ORDERED: VASOPRESSIN 20 UNITS/ML VIAL IV ONE (07:26)
[2019-05-01] MEDS ORDERED: PT OWN MED DRAWER 7, Y5N ONE ×2 (07:32→10:00)
[2019-05-01] MEDS ORDERED: CALCIUM GLUCONATE 10% - 1,000 MG/10 ML VIAL IVPUSH ONE ×2 (07:50→17:52)
[2019-05-01] MEDS ORDERED: INSULIN REGULAR HUMAN 100 UNITS/ML *VIAL IVPUSH ONE ×2 (07:50→17:52)
[2019-05-01 09:08] LABS: ANISOCYTOSIS 2+; MACROCYTOSIS 0; PLATELET ESTIMATE DECREASED; TARGET CELLS 1+; TOXIC GRANULATION 2+
[2019-05-01] MEDS ORDERED: PIPERACILLIN/TAZOBACTAM 3.375 GM VIAL IVPB ONE ×2 (09:53→17:06)
[2019-05-01] MEDS ORDERED: DEXTROSE 5%-WATER - 50 ML IVPB ONE (09:53)
[2019-05-01] MEDS: ENOXAPARIN NA (PORCINE) 40 MG/0.4 ML DISP.SYRIN SQ SCH (09:56)
[2019-05-01] MEDS: FLUCONAZOLE 200 MG/NS 100 ML IVPB SCH (10:01)
[2019-05-01] MEDS: MUPIROCIN 2% TOPICAL OINTMENT FOR DECOLONIZATION NS SCH ×2 (10:02→21:17)
[2019-05-01] MEDS: PANTOPRAZOLE SODIUM 80 MG in SODIUM CHLORIDE 100 ML IVPB SCH ×2 (10:14→13:50)
--- NOTE | 2019-05-01 11:14 | PN ---
Physical Exam: SUBJECTIVE: Patient seen and examined at bed side in ICU Intubated sedated demarco in place BP 123 systolic map 101 OBJECTIVE: Vital Signs Period Temp Pulse Resp BP Sys/Booth Pulse Ox Last 24 Hr 98.0 F-99.5 F 82-111 14-32 78-136/54-88 96-100 GENERAL: Intubated and sedated. demarco in place , surgey wound cover by Gauze EYES: Pupils equal, round and sluggishly reactive to light. LUNGS: Breath sounds equal, clear to auscultation bilaterally. No wheezes, and no crackles. No accessory muscle use. HEART: Regular rate and rhythm, normal S1 and S2 without murmur, rub or gallop. ABDOMEN: Soft, not distended, surgical dressing intact. LOWER EXTREMITIES: 2+ pulses, warm, well-perfused. No calf tenderness. No peripheral edema. NEUROLOGICAL: unable to perform as patient sedated. Laboratory Results - last 24 hr 04/30/19 04/30/19 04/30/19 09:00 09:00 09:00 WBC RBC Hgb Hct MCV MCH MCHC RDW Plt Count 211 MPV 9.9 Absolute Neuts (auto) Neutrophils % Neutrophils % (Manual) Band Neutrophils % Lymphocytes % Lymphocytes % (Manual) Monocytes % Monocytes % (Manual) Eosinophils % Eosinophils % (Manual) Basophils % Basophils % (Manual) Myelocytes % (Man) Promyelocytes % (Man) Blast Cells % (Manual) Nucleated RBC % Metamyelocytes Hypochromia Toxic Granulation Platelet Estimate Normal Platelet Comment Present Polychromasia Poikilocytosis Anisocytosis Microcytosis Macrocytosis Spherocytes Target Cells Tere Cells PT with INR INR Anticoagulation Therapy Puncture Site ABG pH ABG pCO2 at Pt Temp ABG pO2 at Pt Temp ABG HCO3 ABG O2 Sat (Measured) ABG O2 Content ABG Base Excess Darell Test O2 Delivery Device Oxygen Flow Rate Vent Mode Vent Rate Mechanical Rate PEEP Pressure Support Vent Sodium 135 L Potassium 4.2 Chloride 103 Carbon Dioxide 22 Anion Gap 10 BUN 22.5 H Creatinine 1.4 H Est GFR (CKD-EPI)AfAm 61.10 Est GFR (CKD-EPI)NonAf 52.72 POC Glucometer Random Glucose 147 H Lactic Acid 3.8 H* Calcium 8.7 Phosphorus Magnesium Total Bilirubin 0.6 AST 27 ALT 31 Alkaline Phosphatase 51 Total Protein 6.4 Albumin 2.9 L Urine Color Urine Appearance Urine pH Ur Specific [place] Urine Protein Urine Glucose (UA) Urine Ketones Urine Blood Urine Nitrite Urine Bilirubin Urine Urobilinogen Ur Leukocyte Esterase Urine WBC (Auto) Urine RBC (Auto) Urine Casts (Auto) U Epithel Cells (Auto) Urine Bacteria (Auto) Blood Type Antibody Screen Crossmatch IS Only 04/30/19 04/30/19 04/30/19 09:00 12:30 14:10 WBC RBC Hgb Hct MCV MCH MCHC RDW Plt Count MPV Absolute Neuts (auto) Neutrophils % Neutrophils % (Manual) Band Neutrophils % Lymphocytes % Lymphocytes % (Manual) Monocytes % Monocytes % (Manual) Eosinophils % Eosinophils % (Manual) Basophils % Basophils % (Manual) Myelocytes % (Man) Promyelocytes % (Man) Blast Cells % (Manual) Nucleated RBC % Metamyelocytes Hypochromia Toxic Granulation Platelet Estimate Platelet Comment Polychromasia Poikilocytosis Anisocytosis Microcytosis Macrocytosis Spherocytes Target Cells [place] Cells PT with INR INR Anticoagulation Therapy Puncture Site ABG pH ABG pCO2 at Pt Temp ABG pO2 at Pt Temp ABG HCO3 ABG O2 Sat (Measured) ABG O2 Content ABG Base Excess Darell Test O2 Delivery Device Oxygen Flow Rate Vent Mode Vent Rate Mechanical Rate PEEP Pressure Support Vent Sodium Potassium Chloride Carbon Dioxide Anion Gap BUN Creatinine Est GFR (CKD-EPI)AfAm Est GFR (CKD-EPI)NonAf POC Glucometer Random Glucose Lactic Acid Calcium Phosphorus Magnesium Total Bilirubin AST ALT Alkaline Phosphatase Total Protein Albumin Urine Color Yellow Urine Appearance Clear Urine pH 6.0 Ur Specific [place] 1.014 Urine Protein Negative Urine Glucose (UA) Trace Urine Ketones Trace H Urine Blood 1+ H Urine Nitrite Negative Urine Bilirubin Negative Urine Urobilinogen 0.2 Ur Leukocyte Esterase Negative Urine WBC (Auto) 3 Urine RBC (Auto) 4 Urine Casts (Auto) 4 U Epithel Cells (Auto) 1.3 Urine Bacteria (Auto) 7.0 Blood Type A POSITIVE A POSITIVE Antibody Screen Negative Crossmatch IS Only See Detail 04/30/19 04/30/19 04/30/19 17:25 17:30 17:30 WBC 11.9 H RBC 3.79 L Hgb 10.8 L Hct 32.5 L MCV 85.8 MCH 28.5 MCHC 33.3 RDW 15.5 Plt Count 179 MPV 9.9 Absolute Neuts (auto) Neutrophils % Neutrophils % (Manual) Band Neutrophils % Lymphocytes % Lymphocytes % (Manual) Monocytes % Monocytes % (Manual) Eosinophils % Eosinophils % (Manual) Basophils % Basophils % (Manual) Myelocytes % (Man) Promyelocytes % (Man) Blast Cells % (Manual) Nucleated RBC % Metamyelocytes Hypochromia Toxic Granulation Platelet Estimate Platelet Comment Polychromasia Poikilocytosis Anisocytosis Microcytosis Macrocytosis Spherocytes Target Cells Tere Cells PT with INR INR Anticoagulation Therapy No Result Required. Puncture Site Arterial line ABG pH 7.23 L ABG pCO2 at Pt Temp 36.3 ABG pO2 at Pt Temp 223 H ABG HCO3 14.6 L ABG O2 Sat (Measured) 98.7 H ABG O2 Content 14.6 ABG Base Excess -11.8 L Darell Test No Result Required. O2 Delivery Device [place] Oxygen Flow Rate 100% Vent Mode A/c Vent Rate 14 Mechanical Rate No Result Required. PEEP 5.0 Pressure Support Vent 500 Sodium 133 L Potassium 4.6 Chloride 109 H Carbon Dioxide 15 L Anion Gap 9 BUN 19.7 H Creatinine 1.1 Est GFR (CKD-EPI)AfAm 81.79 Est GFR (CKD-EPI)NonAf 70.57 POC Glucometer Random Glucose 230 H Lactic Acid Calcium 7.0 L Phosphorus Magnesium Total Bilirubin AST ALT Alkaline Phosphatase Total Protein Albumin Urine Color Urine Appearance Urine pH Ur Specific [place] Urine Protein Urine Glucose (UA) Urine Ketones Urine Blood Urine Nitrite Urine Bilirubin Urine Urobilinogen Ur Leukocyte Esterase Urine WBC (Auto) Urine RBC (Auto) Urine Casts (Auto) U Epithel Cells (Auto) Urine Bacteria (Auto) Blood Type Antibody Screen Crossmatch IS Only 04/30/19 04/30/19 04/30/19 17:30 21:10 21:55 WBC RBC Hgb Hct MCV MCH MCHC RDW Plt Count MPV Absolute Neuts (auto) Neutrophils % Neutrophils % (Manual) Band Neutrophils % Lymphocytes % Lymphocytes % (Manual) Monocytes % Monocytes % (Manual) Eosinophils % Eosinophils % (Manual) Basophils % Basophils % (Manual) Myelocytes % (Man) Promyelocytes % (Man) Blast Cells % (Manual) Nucleated RBC % Metamyelocytes Hypochromia Toxic Granulation Platelet Estimate Platelet Comment Polychromasia Poikilocytosis Anisocytosis Microcytosis Macrocytosis Spherocytes Target Cells [place] Cells PT with INR 15.80 H INR 1.34 H Anticoagulation Therapy Puncture Site ABG pH ABG pCO2 at Pt Temp ABG pO2 at Pt Temp ABG HCO3 ABG O2 Sat (Measured) ABG O2 Content ABG Base Excess Darell Test O2 Delivery Device Oxygen Flow Rate Vent Mode Vent Rate Mechanical Rate PEEP Pressure Support Vent Sodium Potassium Chloride Carbon Dioxide Anion Gap BUN Creatinine Est GFR (CKD-EPI)AfAm Est GFR (CKD-EPI)NonAf POC Glucometer 252 Random Glucose Lactic Acid 6.1 H* Calcium Phosphorus Magnesium Total Bilirubin AST ALT Alkaline Phosphatase Total Protein Albumin Urine Color Urine Appearance Urine pH Ur Specific [place] Urine Protein Urine Glucose (UA) Urine Ketones Urine Blood Urine Nitrite Urine Bilirubin Urine Urobilinogen Ur Leukocyte Esterase Urine WBC (Auto) Urine RBC (Auto) Urine Casts (Auto) U Epithel Cells (Auto) Urine Bacteria (Auto) Blood Type Antibody Screen Crossmatch IS Only 05/01/19 05/01/19 05/01/19 05:23 06:00 06:00 WBC 22.3 H RBC 3.89 L Hgb 10.9 L Hct 34.0 L MCV 87.3 MCH 28.1 MCHC 32.2 RDW 15.9 Plt Count 156 MPV 10.5 Absolute Neuts (auto) 18.5 H Neutrophils % 83.1 H Neutrophils % (Manual) 10.1 L D Band Neutrophils % 32.3 Lymphocytes % 6.0 L D Lymphocytes % (Manual) 4.0 L D Monocytes % 10.7 H D Monocytes % (Manual) 7 Eosinophils % 0.1 Eosinophils % (Manual) 0.0 D Basophils % 0.1 Basophils % (Manual) 0.0 Myelocytes % (Man) 19 H Promyelocytes % (Man) 0 Blast Cells % (Manual) 0 Nucleated RBC % 0 Metamyelocytes 20 H Hypochromia 0 Toxic Granulation 2+ Platelet Estimate Decreased Platelet Comment Present Polychromasia 0 Poikilocytosis 2+ Anisocytosis 2+ Microcytosis 2+ Macrocytosis 0 Spherocytes 1+ Target Cells 1+ Tere Cells 2+ PT with INR INR Anticoagulation Therapy Puncture Site ABG pH ABG pCO2 at Pt Temp ABG pO2 at Pt Temp ABG HCO3 ABG O2 Sat (Measured) ABG O2 Content ABG Base Excess Darell Test O2 Delivery Device Oxygen Flow Rate Vent Mode Vent Rate Mechanical Rate PEEP Pressure Support Vent Sodium 129 L Potassium 5.5 H Chloride 100 Carbon Dioxide 12 L Anion Gap 18 H BUN 25.4 H Creatinine 1.9 H Est GFR (CKD-EPI)AfAm 42.24 Est GFR (CKD-EPI)NonAf 36.45 POC Glucometer 332 Random Glucose 353 H Lactic Acid Calcium 7.0 L Phosphorus 6.6 H Magnesium 1.5 L Total Bilirubin 0.7 AST 1911 H ALT 1078 H Alkaline Phosphatase 32 L Total Protein 4.5 L Albumin 1.9 L Urine Color Urine Appearance Urine pH Ur Specific [place] Urine Protein Urine Glucose (UA) Urine Ketones Urine Blood Urine Nitrite Urine Bilirubin Urine Urobilinogen Ur Leukocyte Esterase Urine WBC (Auto) Urine RBC (Auto) Urine Casts (Auto) U Epithel Cells (Auto) Urine Bacteria (Auto) Blood Type Antibody Screen Crossmatch IS Only 05/01/19 07:00 WBC RBC Hgb Hct MCV MCH MCHC RDW Plt Count MPV Absolute Neuts (auto) Neutrophils % Neutrophils % (Manual) Band Neutrophils % Lymphocytes % Lymphocytes % (Manual) Monocytes % Monocytes % (Manual) Eosinophils % Eosinophils % (Manual) Basophils % Basophils % (Manual) Myelocytes % (Man) Promyelocytes % (Man) Blast Cells % (Manual) Nucleated RBC % Metamyelocytes Hypochromia Toxic Granulation Platelet Estimate Platelet Comment Polychromasia Poikilocytosis Anisocytosis Microcytosis Macrocytosis Spherocytes Target Cells [place] Cells PT with INR INR Anticoagulation Therapy Puncture Site ABG pH ABG pCO2 at Pt Temp ABG pO2 at Pt Temp ABG HCO3 ABG O2 Sat (Measured) ABG O2 Content ABG Base Excess Darell Test O2 Delivery Device Oxygen Flow Rate Vent Mode Vent Rate Mechanical Rate PEEP Pressure Support Vent Sodium Potassium Chloride Carbon Dioxide Anion Gap BUN Creatinine Est GFR (CKD-EPI)AfAm Est GFR (CKD-EPI)NonAf POC Glucometer Random Glucose Lactic Acid 9.7 H* Calcium Phosphorus Magnesium Total Bilirubin AST ALT Alkaline Phosphatase Total Protein Albumin Urine Color Urine Appearance Urine pH Ur Specific [place] Urine Protein Urine Glucose (UA) Urine Ketones Urine Blood Urine Nitrite Urine Bilirubin Urine Urobilinogen Ur Leukocyte Esterase Urine WBC (Auto) Urine RBC (Auto) Urine Casts (Auto) U Epithel Cells (Auto) Urine Bacteria (Auto) Blood Type Antibody Screen Crossmatch IS Only Active Medications Generic Name Dose Route Start Last Admin Trade Name Freq PRN Reason Stop Dose Admin Enoxaparin Sodium 40 mg 05/01/19 10:00 05/01/19 09:56 Lovenox - SQ 40 mg DAILY MARYSE Administration Pantoprazole Sodium 80 mg/ 100 mls @ 10 mls/hr 04/30/19 16:45 05/01/19 10:14 Sodium Chloride IVPB 05/03/19 16:46 10 mls/hr Q10H MARYSE Administration 8 MG/HR Piperacillin Sod/Tazobactam 50 mls @ 100 mls/hr 04/30/19 18:00 Sod 3.375 gm/ Dextrose IVPB Q8H-IV MARYSE Protocol Piperacillin Sod/Tazobactam 50 mls @ 100 mls/hr 04/30/19 18:00 05/01/19 09:56 Sod 3.375 gm/ Dextrose IVPB 05/01/19 17:59 100 mls/hr Q8H-IV MARYSE Administration Protocol Lactated Ringer's 1,000 mls @ 75 mls/hr 04/30/19 17:15 04/30/19 22:19 Lactated Ringers Solution IV 75 mls/hr ASDIR MARYSE Administration Propofol 1,000,000 mcg in 100 mls @ 5.361 mls/hr 04/30/19 17:15 04/30/19 22: 30 Diprivan - IVPB 10 mcg/kg/min TITR MARYSE 5.361 mls/hr Administration Protocol 10 MCG/KG/MIN Fluconazole 100 mls @ 100 mls/hr 04/30/19 18:00 05/01/19 10:01 Diflucan 200 Mg/Ns Premixed Ivpb - IVPB 100 mls/hr DAILY MARYSE Administration Norepinephrine Bitartrate 4, 500 mls @ 37.5 mls/hr 04/30/19 19:30 05/01/19 10 :00 000 mcg/ Dextrose IV 15 mcg/min TITR MARYSE 112.5 mls/hr Titration Protocol 5 MCG/MIN Vasopressin 50 units/ Sodium 100 mls @ 4 mls/hr 04/30/19 19:30 05/01/19 10:00 Chloride IVPB 0 units/hr ASDIR MARYSE 0 mls/hr Titration Protocol 2 UNITS/HR Insulin Aspart 1 vial 05/01/19 07:00 05/01/19 07:06 Novolog Vial Sliding Scale - SQ 8 units TIDAC MARYSE Administration Protocol Mupirocin 1 applic 04/30/19 22:00 05/01/19 10:02 Bactroban Ointment (For Decolonization) - NS 05/05/19 21:59 1 applic BID MARYSE Administration Ondansetron HCl 4 mg 04/30/19 16:45 Zofran Injection IVPUSH Q6H PRN NAUSEA AND/OR VOMITING Sodium Bicarbonate 50 meq 04/30/19 18:33 Sodium Bicarbonate 8.4% - IV 04/30/19 18:34 ONCE ONE CBC, BMP 05/01/19 06:00 05/01/19 16:00 ASSESSMENT/PLAN: The pt is a 64 yo m w/ PMH MR, HTN, DM, b/l LE swelling who was BIBEMS for a 1 day h/o Hypotension (70/51), lethargy and tachycardia. Patient transferred to ICU intubated for post op management. #Sespsi 2/2 perforated duodenal ulcer (POD 1) S/P lap choly repair * NGT place surgically. per surgery NGT SHOULD NOT BE REMOVED OR MANIPULATED for 1 week * Patient on protonix GTT\ * s/p flagyl in ED * placed on zosyn and fluconazole post op * if intra op cultures negative for yeast, ok to DC fluconazole per surgery * BP stable of levo GTT and vaso GTT * abx pr ID * ICU monitor IV fluids , pressors manage by ICU # Hyperkalemia # Hyponatremia # DOMENIC on CKD # anemia # metabolic acidosis; patient had a lactic acidosis pre op * cont NS @ 75 * will order rpt lactateworsening cont iv fluids Gi and DVT prophylaxis prognosis guarded #Dispo * ICU monitor Visit type - Emergency Visit Emergency Visit: Yes ED Registration Date: 04/30/19 Care time: The patient presented to the Emergency Department on the above date and was hospitalized for further evaluation of their emergent condition. - New Patient This patient is new to me today: Yes Date on this admission: 04/30/19 - Critical Care Critical Care patient: Yes Total Critical Care Time (in minutes): 50 Critical Care Statement: The care of this patient involved high complexity decision making to prevent further life threatening deterioration of the patient 's condition and/or to evaluate & treat vital organ system(s) failure or risk of failure. - Discharge Referral Referred to [facility] No ATTENDING PHYSICIAN STATEMENT I saw and evaluated the patient. I reviewed the resident's note and discussed the case with the resident. I agree with the resident's findings and plan as documented. SUBJECTIVE: OBJECTIVE: ASSESSMENT AND PLAN:
--- NOTE | 2019-05-01 11:32 | PN ---
Progress Note (short form) - Note Progress Note: General Surgery, POD#1 Pt remains intubated, nurse weaning down the pressors today. Vital Signs Period Temp Pulse Resp BP Sys/Booth Pulse Ox Last 24 Hr 98.0 F-99.5 F 82-111 14-32 78-136/54-88 96-100 NGT: AMADO: 75: serosangrenous FC: 600ml GEN: pt intubated/sedated NGT: in place and secure at 58cm ABD: soft, non-distended, dressing C/D/I LE: SCDs in place CBC, BMP 05/01/19 06:00 05/01/19 06:00 A/P: 64 yo male s/p exp lap for perforated duodenal ulcer Pt remains critically ill, he is on 2 pressers nursing able to wean off pressers a little overnight NGT to low wall suction, it remains secure. Do flush or manipulate the tube Amado to bulb suction IV abx and diflucan Intra-abd culture-No growth to date D/w Dr. Bhat <Diane Hines - Last Filed: 05/01/19 13:07> - Note Progress Note: surgery pt seen and examined. agree with above. off pressors. still intubated and sedated on 60%fi02. ngt minimal. amado sero-sanguinous, u/o marginal. abd- soft, mild distension, packing intact. Laboratory Tests 04/30/19 05/01/19 05/01/19 17:30 06:00 07:00 WBC 22.3 H Hgb 10.9 L Plt Count 156 INR 1.34 H Sodium Potassium Lactic Acid 9.7 H* 05/01/19 05/01/19 16:00 17:50 WBC Hgb Plt Count INR Sodium 130 L Potassium 5.5 H Lactic Acid 6.3 H* A/P 1) Pod#1- cont ngt for 6 more days. Cont amado. demarco per critical care. 2) perforated ulcer- cont zosyn and diflucan. follow cultures. protonix drip for 1 week then tid. can stop diflucan if cultures negative. 3) prophylaxis- lovenox, 4) respiratory failure- per critical care 5) septic shock- resolved 6) nutrition- would expect to start diet in 1 week. would start tpn at this time. Will be away for next [address] Miranda covering. <Lee Bhat - Last Filed: 05/01/19 20:04>
[2019-05-01 11:39] LABS: ARTERIAL BLOOD GAS BASE EXCESS -15.5 meq/l (-2-2); ARTERIAL BLOOD GAS PCO2 24.5 mmHg (35-45); ARTERIAL BLOOD GAS pH 7.25 (7.35-7.45)
[2019-05-01 11:40] LABS: ARTERIAL BLOOD GAS PO2 114 mmHg (80-100)
[2019-05-01] MEDS ORDERED: LACTATED RINGERS SOLUTION 1,000 ML/1,000 ML INFUS.BAG IV STA (12:13)
[2019-05-01] MEDS ORDERED: LACTATED RINGERS SOLUTION 1,000 ML IV SCH (12:13)
[2019-05-01] MEDS ORDERED: fentaNYL CITRATE 250 MCG/5 ML VIAL ONE ×2 (13:12→18:11)
[2019-05-01] MEDS: FENTANYL INJECTION 500 MCG in DEXTROSE 5%-WATER - 90 ML IVPB SCH (13:22)
--- NOTE | 2019-05-01 13:35 | PN ---
Teaching Attending Note Name of Resident: Oskar Saha ATTENDING PHYSICIAN STATEMENT I saw and evaluated the patient. I reviewed the resident's note and discussed the case with the resident. I agree with the resident's findings and plan as documented. SUBJECTIVE: Patient seen and examined in the ICU. Intubated and sedated, AC Mode of vent. 15 mcq NE for hemodynamic support. Intake & Output 04/28/19 04/29/19 04/30/19 05/01/19 23:59 23:59 23:59 23:59 Intake Total 7650 Output Total 1115 420 Balance 6535 -420 Weight 197 lb 197 lb Last Vital Signs Temp Pulse Resp BP Pulse Ox 99.2 F 92 H 26 H 149/89 100 05/01/19 12:48 05/01/19 12:00 05/01/19 12:23 05/01/19 12:00 04/30/19 22:00 Active Medications Enoxaparin Sodium (Lovenox -) 40 mg SQ DAILY MARYSE Last Admin: 05/01/19 09:56 Dose: 40 mg Pantoprazole Sodium 80 mg/ (Sodium Chloride) 100 mls @ 10 mls/hr IVPB Q10H MARYSE Stop: 05/03/19 16:46 Last Admin: 05/01/19 10:14 Dose: 10 mls/hr Piperacillin Sod/Tazobactam (Sod 3.375 gm/ Dextrose) 50 mls @ 100 mls/hr IVPB Q8H-IV MARYSE; Protocol Piperacillin Sod/Tazobactam (Sod 3.375 gm/ Dextrose) 50 mls @ 100 mls/hr IVPB Q8H-IV MARYSE; Protocol Stop: 05/01/19 17:59 Last Admin: 05/01/19 09:56 Dose: 100 mls/hr Propofol (Diprivan -) 1,000,000 mcg in 100 mls @ 5.361 mls/hr IVPB TITR MARYSE; Protocol Last Admin: 04/30/19 22:30 Dose: 10 mcg/kg/min, 5.361 mls/hr Fluconazole (Diflucan 200 Mg/Ns Premixed Ivpb -) 100 mls @ 100 mls/hr IVPB DAILY MARYSE Last Admin: 05/01/19 10:01 Dose: 100 mls/hr Norepinephrine Bitartrate 4, (000 mcg/ Dextrose) 500 mls @ 37.5 mls/hr IV TITR MARYSE; Protocol Last Titration: 05/01/19 10:00 Dose: 15 mcg/min, 112.5 mls/hr Vasopressin 50 units/ Sodium (Chloride) 100 mls @ 4 mls/hr IVPB ASDIR MARYSE; Protocol Last Titration: 05/01/19 10:00 Dose: 0 units/hr, 0 mls/hr Fentanyl 500 mcg/ Dextrose 100 mls @ 5 mls/hr IVPB TITR MARYSE; Protocol Last Admin: 05/01/19 13:22 Dose: 25 mcg/hr, 5 mls/hr Lactated Ringer's (Lactated Ringers Solution) 1,000 mls @ 100 mls/hr IV ASDIR MARYSE Last Admin: 05/01/19 12:45 Dose: 100 mls/hr Lactated Ringer's (Lactated Ringers Solution) 1,000 ml in 1,000 mls @ 250 mls/ hr IV ONCE STA Stop: 05/01/19 16:12 Last Admin: 05/01/19 13:09 Dose: 250 mls/hr Insulin Aspart (Novolog Vial Sliding Scale -) 1 vial SQ TIDAC MARYSE; Protocol Last Admin: 05/01/19 12:01 Dose: 8 units Mupirocin (Bactroban Ointment (For Decolonization) -) 1 applic NS BID MARYSE Stop: 05/05/19 21:59 Last Admin: 05/01/19 10:02 Dose: 1 applic Ondansetron HCl (Zofran Injection) 4 mg IVPUSH Q6H PRN PRN Reason: NAUSEA AND/OR VOMITING Sodium Bicarbonate (Sodium Bicarbonate 8.4% -) 50 meq IV ONCE ONE Stop: 04/30/19 18:34 GENERAL: Intubated and sedated. EYES: Pupils equal, round and sluggishly reactive to light. LUNGS: Breath sounds equal, clear to auscultation bilaterally. No wheezes, and no crackles. No accessory muscle use. HEART: Regular rate and rhythm, normal S1 and S2 without murmur, rub or gallop. ABDOMEN: Soft, mildly distended, surgical dressing intact, hypoactive BS, (+) intact ASHLEY drain. LOWER EXTREMITIES: 2+ pulses, warm, well-perfused. No calf tenderness. No peripheral edema. NEUROLOGICAL: sedated. Laboratory Results - last 24 hr 04/30/19 04/30/19 04/30/19 09:00 09:00 14:10 WBC RBC Hgb Hct MCV MCH MCHC RDW Plt Count 211 MPV 9.9 Absolute Neuts (auto) Neutrophils % Neutrophils % (Manual) Band Neutrophils % Lymphocytes % Lymphocytes % (Manual) Monocytes % Monocytes % (Manual) Eosinophils % Eosinophils % (Manual) Basophils % Basophils % (Manual) Myelocytes % (Man) Promyelocytes % (Man) Blast Cells % (Manual) Nucleated RBC % Metamyelocytes Hypochromia Toxic Granulation Platelet Estimate Normal Platelet Comment Present Polychromasia Poikilocytosis Anisocytosis Microcytosis Macrocytosis Spherocytes Target Cells Tere Cells PT with INR INR Anticoagulation Therapy Puncture Site ABG pH ABG pCO2 at Pt Temp ABG pO2 at Pt Temp ABG HCO3 ABG O2 Sat (Measured) ABG O2 Content ABG Base Excess Darell Test O2 Delivery Device Oxygen Flow Rate Vent Mode Vent Rate Mechanical Rate PEEP Pressure Support Vent Sodium Potassium Chloride Carbon Dioxide Anion Gap BUN Creatinine Est GFR (CKD-EPI)AfAm Est GFR (CKD-EPI)NonAf POC Glucometer Random Glucose Lactic Acid Calcium Phosphorus Magnesium Total Bilirubin AST ALT Alkaline Phosphatase Total Protein Albumin Blood Type A POSITIVE A POSITIVE Antibody Screen Negative Crossmatch IS Only See Detail 04/30/19 04/30/19 04/30/19 17:25 17:30 17:30 WBC 11.9 H RBC 3.79 L Hgb 10.8 L Hct 32.5 L MCV 85.8 MCH 28.5 MCHC 33.3 RDW 15.5 Plt Count 179 MPV 9.9 Absolute Neuts (auto) Neutrophils % Neutrophils % (Manual) Band Neutrophils % Lymphocytes % Lymphocytes % (Manual) Monocytes % Monocytes % (Manual) Eosinophils % Eosinophils % (Manual) Basophils % Basophils % (Manual) Myelocytes % (Man) Promyelocytes % (Man) Blast Cells % (Manual) Nucleated RBC % Metamyelocytes Hypochromia Toxic Granulation Platelet Estimate Platelet Comment Polychromasia Poikilocytosis Anisocytosis Microcytosis Macrocytosis Spherocytes Target Cells Milton Cells PT with INR INR Anticoagulation Therapy No Result Required. Puncture Site Arterial line ABG pH 7.23 L ABG pCO2 at Pt Temp 36.3 ABG pO2 at Pt Temp 223 H ABG HCO3 14.6 L ABG O2 Sat (Measured) 98.7 H ABG O2 Content 14.6 ABG Base Excess -11.8 L Darell Test No Result Required. O2 Delivery Device Avea Oxygen Flow Rate 100% Vent Mode A/c Vent Rate 14 Mechanical Rate No Result Required. PEEP 5.0 Pressure Support Vent 500 Sodium 133 L Potassium 4.6 Chloride 109 H Carbon Dioxide 15 L Anion Gap 9 BUN 19.7 H Creatinine 1.1 Est GFR (CKD-EPI)AfAm 81.79 Est GFR (CKD-EPI)NonAf 70.57 POC Glucometer Random Glucose 230 H Lactic Acid Calcium 7.0 L Phosphorus Magnesium Total Bilirubin AST ALT Alkaline Phosphatase Total Protein Albumin Blood Type Antibody Screen Crossmatch IS Only 04/30/19 04/30/19 04/30/19 17:30 21:10 21:55 WBC RBC Hgb Hct MCV MCH MCHC RDW Plt Count MPV Absolute Neuts (auto) Neutrophils % Neutrophils % (Manual) Band Neutrophils % Lymphocytes % Lymphocytes % (Manual) Monocytes % Monocytes % (Manual) Eosinophils % Eosinophils % (Manual) Basophils % Basophils % (Manual) Myelocytes % (Man) Promyelocytes % (Man) Blast Cells % (Manual) Nucleated RBC % Metamyelocytes Hypochromia Toxic Granulation Platelet Estimate Platelet Comment Polychromasia Poikilocytosis Anisocytosis Microcytosis Macrocytosis Spherocytes Target Cells Tere Cells PT with INR 15.80 H INR 1.34 H Anticoagulation Therapy Puncture Site ABG pH ABG pCO2 at Pt Temp ABG pO2 at Pt Temp ABG HCO3 ABG O2 Sat (Measured) ABG O2 Content ABG Base Excess Darell Test O2 Delivery Device Oxygen Flow Rate Vent Mode Vent Rate Mechanical Rate PEEP Pressure Support Vent Sodium Potassium Chloride Carbon Dioxide Anion Gap BUN Creatinine Est GFR (CKD-EPI)AfAm Est GFR (CKD-EPI)NonAf POC Glucometer 252 Random Glucose Lactic Acid 6.1 H* Calcium Phosphorus Magnesium Total Bilirubin AST ALT Alkaline Phosphatase Total Protein Albumin Blood Type Antibody Screen Crossmatch IS Only 05/01/19 05/01/19 05/01/19 05:23 06:00 06:00 WBC 22.3 H RBC 3.89 L Hgb 10.9 L Hct 34.0 L MCV 87.3 MCH 28.1 MCHC 32.2 RDW 15.9 Plt Count 156 MPV 10.5 Absolute Neuts (auto) 18.5 H Neutrophils % 83.1 H Neutrophils % (Manual) 10.1 L D Band Neutrophils % 32.3 Lymphocytes % 6.0 L D Lymphocytes % (Manual) 4.0 L D Monocytes % 10.7 H D Monocytes % (Manual) 7 Eosinophils % 0.1 Eosinophils % (Manual) 0.0 D Basophils % 0.1 Basophils % (Manual) 0.0 Myelocytes % (Man) 19 H Promyelocytes % (Man) 0 Blast Cells % (Manual) 0 Nucleated RBC % 0 Metamyelocytes 20 H Hypochromia 0 Toxic Granulation 2+ Platelet Estimate Decreased Platelet Comment Present Polychromasia 0 Poikilocytosis 2+ Anisocytosis 2+ Microcytosis 2+ Macrocytosis 0 Spherocytes 1+ Target Cells 1+ Milton Cells 2+ PT with INR INR Anticoagulation Therapy Puncture Site ABG pH ABG pCO2 at Pt Temp ABG pO2 at Pt Temp ABG HCO3 ABG O2 Sat (Measured) ABG O2 Content ABG Base Excess Darell Test O2 Delivery Device Oxygen Flow Rate Vent Mode Vent Rate Mechanical Rate PEEP Pressure Support Vent Sodium 129 L Potassium 5.5 H Chloride 100 Carbon Dioxide 12 L Anion Gap 18 H BUN 25.4 H Creatinine 1.9 H Est GFR (CKD-EPI)AfAm 42.24 Est GFR (CKD-EPI)NonAf 36.45 POC Glucometer 332 Random Glucose 353 H Lactic Acid Calcium 7.0 L Phosphorus 6.6 H Magnesium 1.5 L Total Bilirubin 0.7 AST 1911 H ALT 1078 H Alkaline Phosphatase 32 L Total Protein 4.5 L Albumin 1.9 L Blood Type Antibody Screen Crossmatch IS Only 05/01/19 05/01/19 05/01/19 07:00 11:10 12:00 WBC RBC Hgb Hct MCV MCH MCHC RDW Plt Count MPV Absolute Neuts (auto) Neutrophils % Neutrophils % (Manual) Band Neutrophils % Lymphocytes % Lymphocytes % (Manual) Monocytes % Monocytes % (Manual) Eosinophils % Eosinophils % (Manual) Basophils % Basophils % (Manual) Myelocytes % (Man) Promyelocytes % (Man) Blast Cells % (Manual) Nucleated RBC % Metamyelocytes Hypochromia Toxic Granulation Platelet Estimate Platelet Comment Polychromasia Poikilocytosis Anisocytosis Microcytosis Macrocytosis Spherocytes Target Cells Tere Cells PT with INR INR Anticoagulation Therapy No Result Required. Puncture Site Left radial ABG pH 7.25 L ABG pCO2 at Pt Temp 24.5 L ABG pO2 at Pt Temp 114 H ABG HCO3 10.3 L ABG O2 Sat (Measured) 97.0 ABG O2 Content No Result Required. ABG Base Excess -15.5 L Darell Test No Result Required. O2 Delivery Device No Result Required. Oxygen Flow Rate 60 Vent Mode No Result Required. Vent Rate 14 Mechanical Rate No Result Required. PEEP 5.0 Pressure Support Vent No Result Required. Sodium Potassium Chloride Carbon Dioxide Anion Gap BUN Creatinine Est GFR (CKD-EPI)AfAm Est GFR (CKD-EPI)NonAf POC Glucometer 324 Random Glucose Lactic Acid 9.7 H* Calcium Phosphorus Magnesium Total Bilirubin AST ALT Alkaline Phosphatase Total Protein Albumin Blood Type Antibody Screen Crossmatch IS Only ASSESSMENT/PLAN: POD #1: exploratory laparotomy, rohan patch repair perforated duodenal ulcer, lavage, retro-rectus block Septic Shock due to 2 cm perforated Duodenal ulcer Acute Respiratory Failure MR by history HTN DM AC Mode of vent ABX Per ID Tranduce CVP to guide IVF resuscitation VTE prophylaxis NGT Pressors to maintain MAP > 65 Strict I & O PPI Follow cultures Requires continued ICU monitoring Dr Desai Critical care time spent in reviewing chart, evaluating patient and formulating plan - 36 minutes.
--- NOTE | 2019-05-01 13:36 | PN ---
Progress Note (short form) - Note Progress Note: ID consult dictated imp/reccd 64 yo man with MR, diabetes, dmentia, schizophrenia- lives at [facility] admitted with 48 hours of abdominal pain, hypotension 04/30 found to have free air s/p ex lap with rohan patch repair of perforated DU-inflammatory fluid, vegetable matter noted in the abdomen patient is intubated and was on levophed and vasopressin overnight- now off pressors sepsis secondary to perforated viscus s/p repair of perforated bowel domenic secondary to sepsis shock liver respiratory failure- post op agree with zosyn and diflucan no history of MDRO f/u operative cultures Problem List - Problems (1) Sepsis Code(s): A41.9 - SEPSIS, UNSPECIFIED ORGANISM (2) Bowel perforation Code(s): K63.1 - PERFORATION OF INTESTINE (NONTRAUMATIC) (3) DOMENIC (acute kidney injury) Code(s): N17.9 - ACUTE KIDNEY FAILURE, UNSPECIFIED (4) Shock liver Code(s): K72.00 - ACUTE AND SUBACUTE HEPATIC FAILURE WITHOUT COMA
--- NOTE | 2019-05-01 13:52 | PN ---
Progress Note (short form) - Note Progress Note: Anesthesia POD#! S/P ex-Lap and Repair of ruptured Duodenal Ulcer under GA Still intubated and sedated. On A/C ventilation. Off pressors, respiratory and renal failure after the septic shock. recovering now. Holding BP by himself. Needs more time for organ recovery. A/P Extubation plan as per ICU. Continue the supportive care. Radha Mock MD.
--- NOTE | 2019-05-01 14:55 | CONS ---
INFECTIOUS DISEASE CONSULTATION DATE OF CONSULTATION: DATE OF DICTATION: 05/01/2019 HISTORY: This is a 64-year-old man with a history of mental retardation, diabetes, dementia, and schizophrenia. He resides at the [facility]. He was sent to the ER with a 2-day history of abdominal pain. He was found to be hypotensive, lethargic, and tachycardic yesterday. X-ray was done, and he was noted to have free air under the diaphragm. He had a concern for perforation. He had a STAT CAT scan of his abdomen and pelvis done with pneumoperitoneum. He was taken emergently to the operating room where he was found to have a perforated duodenal ulcer with some food and gross contamination of the abdomen. He underwent an exploratory laparotomy and a Jack patch repair yesterday. Postoperatively, he has remained hypotensive requiring multiple pressors overnight. He remains intubated and sedated as well. I am asked to see him for antibiotic recommendations. He has been started on Zosyn and Diflucan postoperatively. PAST MEDICAL HISTORY: Notable for moderate MR, diabetes, psychosis, schizophrenia, dementia. Per the RN, he had recently had swelling of his legs, and he was under some fluid restriction. ALLERGIES: No known drug allergies. MEDICATIONS: Include Naproxen, metformin, atenolol, lisinopril, amlodipine, atorvastatin, Colace, loratadine. He was on vitamin D. He is on pioglitazone. He is on aspirin. He is on Zyprexa. He is on Depakote. REVIEW OF SYSTEMS: Not obtained. He is intubated. SOCIAL HISTORY: No history of cigarette, alcohol, or substance abuse. He is a long-term resident of the [facility]. PHYSICAL EXAMINATION: Vital Signs: He is currently off pressors. Temperature 99.2, maximum temperature 100.5, pulse 92, blood pressure 149/89, respiratory rate is 20. He is on FiO2 of 60% via ventilator. HEENT: He is normocephalic. He is orally intubated. Lungs: Diminished breath sounds at the bases. Heart: Regular rate and rhythm. Abdomen: He has a postop dressing intact. He has J-P drain with clear, serous fluid that is blood tinged. Extremities: Without edema. DIAGNOSTIC DATA: His lactic acid is 9.7. BUN 25, creatinine 1.5. AST 1911, ALT 1078. White count on admission was 3.9, today is 22.3 with platelets of 156. His blood cultures are negative at 24 hours. Operative cultures are pending. Chest x-ray is notable for a right IJ line. There is no gross infiltrate on x-ray. In summary, this is a 64-year-old man with sepsis secondary to perforated viscus status post repair of perforated bowel, DOMENIC secondary to sepsis, shock liver, respiratory failure postop. I would agree with the Zosyn and Diflucan. No history of multidrug-resistant organisms. Would follow up operative cultures and aggressive fluid resuscitation per the ICU staff. Further recommendations to follow. Pal [id number]
--- NOTE | 2019-05-01 15:11 | PN ---
Physical Exam: SUBJECTIVE: Patient seen and examined NAEON Intubated, and sedated OBJECTIVE: Vital Signs Period Temp Pulse Resp BP Sys/Booth Pulse Ox Last 24 Hr 98.0 F-99.5 F 82-98 14-32 78-149/54-89 100-100 GENERAL: intubated and sedated on propofol HEAD: Normal with no signs of trauma. EYES: sclera anicteric, conjunctiva clear. No ptosis. ENT: Ears normal, nares patent, moist mucous membranes. NGT ~60cm at nares NECK: Trachea midline, full range of motion, supple. LUNGS: coarase b/l BS to auscultation bilaterally. Vent 500, 14, 6, 60% HEART: Regular rate and rhythm, S1, S2 without murmur, rub or gallop. ABDOMEN: Soft, nontender, nondistended, hypoactive bowel sounds, surgical dressings overlying mid abd. ASHLEY with SS drainage EXTREMITIES: 2+ pulses, warm, well-perfused, nonpitting edema. NEUROLOGICAL: sedated on propofol SKIN: Warm, dry, normal turgor, no rashes or lesions noted Laboratory Results - last 24 hr 04/30/19 04/30/19 04/30/19 09:00 14:10 17:25 WBC RBC Hgb Hct MCV MCH MCHC RDW Plt Count MPV Absolute Neuts (auto) Neutrophils % Neutrophils % (Manual) Band Neutrophils % Lymphocytes % Lymphocytes % (Manual) Monocytes % Monocytes % (Manual) Eosinophils % Eosinophils % (Manual) Basophils % Basophils % (Manual) Myelocytes % (Man) Promyelocytes % (Man) Blast Cells % (Manual) Nucleated RBC % Metamyelocytes Hypochromia Toxic Granulation Platelet Estimate Platelet Comment Polychromasia Poikilocytosis Anisocytosis Microcytosis Macrocytosis Spherocytes Target Cells Tere Cells PT with INR INR Anticoagulation Therapy No Result Required. Puncture Site Arterial line ABG pH 7.23 L ABG pCO2 at Pt Temp 36.3 ABG pO2 at Pt Temp 223 H ABG HCO3 14.6 L ABG O2 Sat (Measured) 98.7 H ABG O2 Content 14.6 ABG Base Excess -11.8 L Darell Test No Result Required. O2 Delivery Device Avea Oxygen Flow Rate 100% Vent Mode A/c Vent Rate 14 Mechanical Rate No Result Required. PEEP 5.0 Pressure Support Vent 500 Sodium Potassium Chloride Carbon Dioxide Anion Gap BUN Creatinine Est GFR (CKD-EPI)AfAm Est GFR (CKD-EPI)NonAf POC Glucometer Random Glucose Lactic Acid Calcium Phosphorus Magnesium Total Bilirubin AST ALT Alkaline Phosphatase Total Protein Albumin Blood Type A POSITIVE A POSITIVE Antibody Screen Negative Crossmatch IS Only See Detail 04/30/19 04/30/19 04/30/19 17:30 17:30 17:30 WBC 11.9 H RBC 3.79 L Hgb 10.8 L Hct 32.5 L MCV 85.8 MCH 28.5 MCHC 33.3 RDW 15.5 Plt Count 179 MPV 9.9 Absolute Neuts (auto) Neutrophils % Neutrophils % (Manual) Band Neutrophils % Lymphocytes % Lymphocytes % (Manual) Monocytes % Monocytes % (Manual) Eosinophils % Eosinophils % (Manual) Basophils % Basophils % (Manual) Myelocytes % (Man) Promyelocytes % (Man) Blast Cells % (Manual) Nucleated RBC % Metamyelocytes Hypochromia Toxic Granulation Platelet Estimate Platelet Comment Polychromasia Poikilocytosis Anisocytosis Microcytosis Macrocytosis Spherocytes Target Cells Tere Cells PT with INR 15.80 H INR 1.34 H Anticoagulation Therapy Puncture Site ABG pH ABG pCO2 at Pt Temp ABG pO2 at Pt Temp ABG HCO3 ABG O2 Sat (Measured) ABG O2 Content ABG Base Excess Darell Test O2 Delivery Device Oxygen Flow Rate Vent Mode Vent Rate Mechanical Rate PEEP Pressure Support Vent Sodium 133 L Potassium 4.6 Chloride 109 H Carbon Dioxide 15 L Anion Gap 9 BUN 19.7 H Creatinine 1.1 Est GFR (CKD-EPI)AfAm 81.79 Est GFR (CKD-EPI)NonAf 70.57 POC Glucometer Random Glucose 230 H Lactic Acid Calcium 7.0 L Phosphorus Magnesium Total Bilirubin AST ALT Alkaline Phosphatase Total Protein Albumin Blood Type Antibody Screen Crossmatch IS Only 04/30/19 04/30/19 05/01/19 21:10 21:55 05:23 WBC RBC Hgb Hct MCV MCH MCHC RDW Plt Count MPV Absolute Neuts (auto) Neutrophils % Neutrophils % (Manual) Band Neutrophils % Lymphocytes % Lymphocytes % (Manual) Monocytes % Monocytes % (Manual) Eosinophils % Eosinophils % (Manual) Basophils % Basophils % (Manual) Myelocytes % (Man) Promyelocytes % (Man) Blast Cells % (Manual) Nucleated RBC % Metamyelocytes Hypochromia Toxic Granulation Platelet Estimate Platelet Comment Polychromasia Poikilocytosis Anisocytosis Microcytosis Macrocytosis Spherocytes Target Cells Concord Cells PT with INR INR Anticoagulation Therapy Puncture Site ABG pH ABG pCO2 at Pt Temp ABG pO2 at Pt Temp ABG HCO3 ABG O2 Sat (Measured) ABG O2 Content ABG Base Excess Darell Test O2 Delivery Device Oxygen Flow Rate Vent Mode Vent Rate Mechanical Rate PEEP Pressure Support Vent Sodium Potassium Chloride Carbon Dioxide Anion Gap BUN Creatinine Est GFR (CKD-EPI)AfAm Est GFR (CKD-EPI)NonAf POC Glucometer 252 332 Random Glucose Lactic Acid 6.1 H* Calcium Phosphorus Magnesium Total Bilirubin AST ALT Alkaline Phosphatase Total Protein Albumin Blood Type Antibody Screen Crossmatch IS Only 05/01/19 05/01/19 05/01/19 06:00 06:00 07:00 WBC 22.3 H RBC 3.89 L Hgb 10.9 L Hct 34.0 L MCV 87.3 MCH 28.1 MCHC 32.2 RDW 15.9 Plt Count 156 MPV 10.5 Absolute Neuts (auto) 18.5 H Neutrophils % 83.1 H Neutrophils % (Manual) 10.1 L D Band Neutrophils % 32.3 Lymphocytes % 6.0 L D Lymphocytes % (Manual) 4.0 L D Monocytes % 10.7 H D Monocytes % (Manual) 7 Eosinophils % 0.1 Eosinophils % (Manual) 0.0 D Basophils % 0.1 Basophils % (Manual) 0.0 Myelocytes % (Man) 19 H Promyelocytes % (Man) 0 Blast Cells % (Manual) 0 Nucleated RBC % 0 Metamyelocytes 20 H Hypochromia 0 Toxic Granulation 2+ Platelet Estimate Decreased Platelet Comment Present Polychromasia 0 Poikilocytosis 2+ Anisocytosis 2+ Microcytosis 2+ Macrocytosis 0 Spherocytes 1+ Target Cells 1+ Concord Cells 2+ PT with INR INR Anticoagulation Therapy Puncture Site ABG pH ABG pCO2 at Pt Temp ABG pO2 at Pt Temp ABG HCO3 ABG O2 Sat (Measured) ABG O2 Content ABG Base Excess Darell Test O2 Delivery Device Oxygen Flow Rate Vent Mode Vent Rate Mechanical Rate PEEP Pressure Support Vent Sodium 129 L Potassium 5.5 H Chloride 100 Carbon Dioxide 12 L Anion Gap 18 H BUN 25.4 H Creatinine 1.9 H Est GFR (CKD-EPI)AfAm 42.24 Est GFR (CKD-EPI)NonAf 36.45 POC Glucometer Random Glucose 353 H Lactic Acid 9.7 H* Calcium 7.0 L Phosphorus 6.6 H Magnesium 1.5 L Total Bilirubin 0.7 AST 1911 H ALT 1078 H Alkaline Phosphatase 32 L Total Protein 4.5 L Albumin 1.9 L Blood Type Antibody Screen Crossmatch IS Only 05/01/19 05/01/19 11:10 12:00 WBC RBC Hgb Hct MCV MCH MCHC RDW Plt Count MPV Absolute Neuts (auto) Neutrophils % Neutrophils % (Manual) Band Neutrophils % Lymphocytes % Lymphocytes % (Manual) Monocytes % Monocytes % (Manual) Eosinophils % Eosinophils % (Manual) Basophils % Basophils % (Manual) Myelocytes % (Man) Promyelocytes % (Man) Blast Cells % (Manual) Nucleated RBC % Metamyelocytes Hypochromia Toxic Granulation Platelet Estimate Platelet Comment Polychromasia Poikilocytosis Anisocytosis Microcytosis Macrocytosis Spherocytes Target Cells Concord Cells PT with INR INR Anticoagulation Therapy No Result Required. Puncture Site Left radial ABG pH 7.25 L ABG pCO2 at Pt Temp 24.5 L ABG pO2 at Pt Temp 114 H ABG HCO3 10.3 L ABG O2 Sat (Measured) 97.0 ABG O2 Content No Result Required. ABG Base Excess -15.5 L Darell Test No Result Required. O2 Delivery Device No Result Required. Oxygen Flow Rate 60 Vent Mode No Result Required. Vent Rate 14 Mechanical Rate No Result Required. PEEP 5.0 Pressure Support Vent No Result Required. Sodium Potassium Chloride Carbon Dioxide Anion Gap BUN Creatinine Est GFR (CKD-EPI)AfAm Est GFR (CKD-EPI)NonAf POC Glucometer 324 Random Glucose Lactic Acid Calcium Phosphorus Magnesium Total Bilirubin AST ALT Alkaline Phosphatase Total Protein Albumin Blood Type Antibody Screen Crossmatch IS Only Active Medications Generic Name Dose Route Start Last Admin Trade Name Freq PRN Reason Stop Dose Admin Enoxaparin Sodium 40 mg 05/01/19 10:00 05/01/19 09:56 Lovenox - SQ 40 mg DAILY MARYSE Administration Pantoprazole Sodium 80 mg/ 100 mls @ 10 mls/hr 04/30/19 16:45 05/01/19 13:50 Sodium Chloride IVPB 05/03/19 16:46 10 mls/hr Q10H MARYSE Administration 8 MG/HR Piperacillin Sod/Tazobactam 50 mls @ 100 mls/hr 04/30/19 18:00 Sod 3.375 gm/ Dextrose IVPB Q8H-IV MARYSE Protocol Propofol 1,000,000 mcg in 100 mls @ 5.361 mls/hr 04/30/19 17:15 04/30/19 22: 30 Diprivan - IVPB 10 mcg/kg/min TITR MARYSE 5.361 mls/hr Administration Protocol 10 MCG/KG/MIN Fluconazole 100 mls @ 100 mls/hr 04/30/19 18:00 05/01/19 10:01 Diflucan 200 Mg/Ns Premixed Ivpb - IVPB 100 mls/hr DAILY MARYSE Administration Norepinephrine Bitartrate 4, 500 mls @ 37.5 mls/hr 04/30/19 19:30 05/01/19 10 :00 000 mcg/ Dextrose IV 15 mcg/min TITR MARYSE 112.5 mls/hr Titration Protocol 5 MCG/MIN Vasopressin 50 units/ Sodium 100 mls @ 4 mls/hr 04/30/19 19:30 05/01/19 10:00 Chloride IVPB 0 units/hr ASDIR MARYSE 0 mls/hr Titration Protocol 2 UNITS/HR Fentanyl 500 mcg/ Dextrose 100 mls @ 5 mls/hr 05/01/19 12:15 05/01/19 13:22 IVPB 25 mcg/hr TITR MARYSE 5 mls/hr Administration Protocol 25 MCG/HR Lactated Ringer's 1,000 mls @ 100 mls/hr 05/01/19 12:13 05/01/19 12:45 Lactated Ringers Solution IV 100 mls/hr ASDIR MARYSE Administration Lactated Ringer's 1,000 ml in 1,000 mls @ 250 mls/hr 05/01/19 12:13 05/01/19 13:09 Lactated Ringers Solution IV 05/01/19 16:12 250 mls/hr ONCE STA Administration Insulin Aspart 1 vial 05/01/19 07:00 05/01/19 12:01 Novolog Vial Sliding Scale - SQ 8 units TIDAC MARYSE Administration Protocol Mupirocin 1 applic 04/30/19 22:00 05/01/19 10:02 Bactroban Ointment (For Decolonization) - NS 05/05/19 21:59 1 applic BID MARYSE Administration Ondansetron HCl 4 mg 04/30/19 16:45 Zofran Injection IVPUSH Q6H PRN NAUSEA AND/OR VOMITING Sodium Bicarbonate 50 meq 04/30/19 18:33 Sodium Bicarbonate 8.4% - IV 04/30/19 18:34 ONCE ONE ASSESSMENT/PLAN: 64 yo m w/ PMH MR, HTN, DM, b/l LE swelling who was BIBEMS for a 1 day h/o Hypotension (70/51), lethargy and tachycardia. Post-op admission to ICU intubated for HD monitoring. Neuro # sedated -intubated and sedated on propofol Pulmonary # intubated - Vent: 500, 14, 6, 60% > CXR(04/30/19): left lower half of chest w/ opacity > ABG(05/01/19): 7.25/24.5/114/10.3/97 - weaning trials once stable Cardio # hypotension --likely 2/2 septic shock - was on levo gtt and vaso gtt, postop --off pressors on 05/01/19 - incr IVF GI # perforated duodenum --possibly 2/2 freq NSAID usage vs H pylori # transamnitis --likely shocked liver > AST/ALT: 1911/1078 > Lactic Acid: 3.8, 6.1, 9.7 --> - s/p Ex-Lap w/ Jack Patch([facility], 04/30/19) - NGT place surgically. per surgery NGT SHOULD NOT BE REMOVED OR MANIPULATED for 1 week - protonix GTT - abx regimen: -- s/p flagyl in ED -- zosyn and fluconazole - if intra op cultures negative for yeast, ok to DC fluconazole per surgery #Renal -post-op ABG shows metabolic acidosis; patient had a lactic acidosis pre op -on NS @ 100 #Prophy -protonix gtt -lovenox 40 sq for DVT prophy per surgery #Dispo -admit ICU -We will continue to follow the patient. Thank you for this consultative opportunity. Visit type - Emergency Visit Emergency Visit: No - New Patient This patient is new to me today: Yes Date on this admission: 05/02/19 - Critical Care Critical Care patient: Yes Total Critical Care Time (in minutes): 35 Critical Care Statement: The care of this patient involved high complexity decision making to prevent further life threatening deterioration of the patient 's condition and/or to evaluate & treat vital organ system(s) failure or risk of failure. ATTENDING PHYSICIAN STATEMENT I saw and evaluated the patient. I reviewed the resident's note and discussed the case with the resident. I agree with the resident's findings and plan as documented. SUBJECTIVE: OBJECTIVE: ASSESSMENT AND PLAN:
--- NOTE | 2019-05-01 15:14 | EKG ---
Test Reason : Blood Pressure : / mmHG Vent. Rate : 092 BPM Atrial Rate : 092 BPM P-R Int : 158 ms QRS Dur : 090 ms QT Int : 360 ms P-R-T Axes : 049 006 049 degrees QTc Int : 445 ms NORMAL SINUS RHYTHM LOW VOLTAGE QRS CANNOT RULE OUT ANTERIOR INFARCT , AGE UNDETERMINED ABNORMAL ECG WHEN COMPARED WITH ECG OF 30-APR-2019 09:03, NONSPECIFIC T WAVE ABNORMALITY NOW EVIDENT IN ANTERIOR LEADS Confirmed by HEATHER BUCKNER MD ([id number]) on 05/01/2019 3:14:11 PM Referred By: Confirmed By:HEATHER BUCKNER MD
--- NOTE | 2019-05-01 15:43 | ECHO ---
Name: YOLI MCGEE Exam:Adult Echocardiogram Study Date: 05/01/2019 02:29 PM Age: 64 yrs Reason For Study: LE EDEMA Height: 66 in Weight: 197 lb BSA: 2.0 m2 MMode/2D Measurements & Calculations IVSd: 0.99 cm Ao root diam: 3.5 cm LVIDd: 4.7 cm LA dimension: 2.3 cm LVIDs: 3.6 cm ACS: 1.8 cm LVPWd: 0.90 cm EDV(Teich): 101.3 ml LVOT diam: 2.0 cm ESV(Teich): 54.4 ml LVLd ap4: 8.2 cm SV(MOD-sp4): 35.7 ml EDV(MOD-sp4): 107.0 ml LVLs ap4: 7.5 cm ESV(MOD-sp4): 71.3 ml TAPSE: 1.7 cm RV S Benitez: 6.9 cm/sec Doppler Measurements & Calculations MV E max benitez: 60.6 cm/sec Ao V2 max: 81.4 cm/sec MV A max ebnitez: 55.3 cm/sec Ao max P.7 mmHg MV E/A: 1.1 Ao V2 mean: 54.1 cm/sec MV dec time: 0.16 sec Ao mean P.4 mmHg Ao V2 VTI: 14.9 cm YULIET(I,D): 2.5 cm2 YULIET(V,D): 2.4 cm2 LV V1 max P.6 mmHg SV(LVOT): 37.4 ml LV V1 mean P.76 mmHg LV V1 max: 63.1 cm/sec LV V1 mean: 39.9 cm/sec LV V1 VTI: 12.2 cm PA V2 max: 65.2 cm/sec Med Peak E' Benitez: 6.3 cm/sec PA max P.7 mmHg Med E/e': 9.6 Lat Peak E' Benitez: 5.9 cm/sec Lat E/e': 10.3 Tech Comments TDS, patient on vent, supine, leaning RIGHT. Procedure The study was technically difficult with many images being suboptimal in quality. Left Ventricle Although segmental wall motion cannot be assessed, the overall left ventricular systolic function alethea ears grossly mild to moderately reduced. Regional wall motion abnormalities cannot be excluded due to limi lisa visualization. Right Ventricle The right ventricle is not well visualized. Atria Normal left and right atrial size and function. Mitral Valve The mitral valve is grossly normal. There is no mitral valve stenosis. There is mild mitral regurgita tion. Tricuspid Valve The tricuspid valve is normal in structure and function. Aortic Valve The aortic valve opens well. No hemodynamically significant valvular aortic stenosis. Great Vessels Borderline aortic root dilatation. Pericardium/Pleura There is no pericardial effusion. Interpretation Summary Consider repeating study when extubated for better assessment of wall motion and overall LVEF. The st udy was technically difficult with many images being suboptimal in quality. Regional wall motion abnormalities cannot be excluded due to limited visualization. Although segmental wall motion cannot be assessed, the overall left ventricular systolic function alethea ears grossly mild to moderately reduced. There is mild mitral regurgitation. Borderline aortic root dilatation. There is no pericardial effusion. MD Quintana *Arian 05/01/2019 03:42 PM
[2019-05-01] MEDS ORDERED: DEXTROSE 5%-WATER - 100 ML IVPB ONE (17:06)
[2019-05-01 17:30] LABS: BLOOD UREA NITROGEN 31.8 mg/dL (7-18); CREATININE 2.3 mg/dL (0.55-1.3); POTASSIUM 5.5 mmol/L (3.5-5.1)
[2019-05-01] MEDS ORDERED: DEXTROSE 50%-WATER - 25 GM/50 ML VIAL IVPUSH ONE (17:52)
[2019-05-01] MEDS: PROPOFOL 1,000,000 MCG/100 ML VIAL IVPB SCH ×2 (18:25→21:20)
[2019-05-01] MEDS: SODIUM CHLORIDE 1,000 ML IV SCH (18:25)
[2019-05-01] MEDS ORDERED: DEXTROSE 50%-WATER 25 GM/50 ML DISP.SYRIN ONE ×2 (18:28→18:32)
--- NOTE | 2019-05-01 19:04 | PN ---
Teaching Attending Note Name of Resident: Vidal Aguilar ATTENDING PHYSICIAN STATEMENT I saw and evaluated the patient. I reviewed the resident's note and discussed the case with the resident. I agree with the resident's findings and plan as documented. Subjective: Patient seen and examined at bed side. Sedated and mechanically ventilated. RAAS -2. Objective: GENERAL: intubated and sedated on propofol, RAAS -2 HEAD: Normal with no signs of trauma. EYES: sclera anicteric, conjunctiva clear. No ptosis. ENT: Ears normal, nares patent, moist mucous membranes. NGT+ NECK: Trachea midline, full range of motion, supple. LUNGS: coarse b/l BS to auscultation bilaterally. HEART: Regular rate and rhythm, S1, S2 without murmur, rub or gallop. ABDOMEN: Soft, non-tender, non-distended, hypoactive bowel sounds, surgical dressings overlying mid abd. ASHLEY with SS drainage EXTREMITIES: 2+ pulses, warm, well-perfused, nonpitting edema. NEUROLOGICAL: sedated on propofol SKIN: Warm, dry, normal turgor, no rashes or lesions noted Vital Signs - 24 hr 04/30/19 04/30/19 04/30/19 20:23 20:31 20:44 Temperature 98.4 F Pulse Rate 87 98 H Respiratory 14 27 H 14 Rate Blood Pressure 85/71 L O2 Sat by Pulse 100 100 Oximetry (%) 04/30/19 04/30/19 04/30/19 21:00 22:00 22:21 Temperature Pulse Rate 98 H 90 98 H Respiratory 29 H 30 H Rate Blood Pressure 93/73 93/73 78/54 L O2 Sat by Pulse 100 100 Oximetry (%) 04/30/19 05/01/19 05/01/19 22:24 00:00 00:30 Temperature Pulse Rate 87 Respiratory 31 H 29 H Rate Blood Pressure 78/54 L 94/74 O2 Sat by Pulse Oximetry (%) 05/01/19 05/01/19 05/01/19 01:00 01:07 02:00 Temperature 98.2 F Pulse Rate 88 88 Respiratory 29 H 32 H Rate Blood Pressure 94/74 87/71 L O2 Sat by Pulse Oximetry (%) 05/01/19 05/01/19 05/01/19 04:30 04:42 05:09 Temperature 98.4 F Pulse Rate 87 90 Respiratory 14 15 14 Rate Blood Pressure 96/54 L 95/74 O2 Sat by Pulse Oximetry (%) 05/01/19 05/01/19 05/01/19 07:00 07:30 08:00 Temperature Pulse Rate 88 91 H Respiratory 26 H 14 Rate Blood Pressure 133/88 130/86 O2 Sat by Pulse Oximetry (%) 05/01/19 05/01/19 05/01/19 08:47 10:00 12:00 Temperature 99.5 F Pulse Rate 95 H 92 H Respiratory 28 H 14 14 Rate Blood Pressure 136/87 149/89 O2 Sat by Pulse Oximetry (%) 05/01/19 05/01/19 05/01/19 12:23 14:00 16:00 Temperature 99.2 F Pulse Rate 90 84 Respiratory 26 H 14 20 Rate Blood Pressure 120/75 91/63 O2 Sat by Pulse Oximetry (%) 05/01/19 05/01/19 16:54 18:00 Temperature Pulse Rate 83 Respiratory 19 17 Rate Blood Pressure 105/70 O2 Sat by Pulse Oximetry (%) Microbiology 04/30/19 14:28 Body Fluid - Other Gram Stain - Final 04/30/19 14:38 Abdomen Gram Stain - Final 04/30/19 09:00 Blood - Peripheral Venous Blood Culture - Preliminary NO GROWTH OBTAINED AFTER 24 HOURS, INCUBATION TO CONTINUE FOR 4 DAYS. 04/30/19 09:00 Blood - Peripheral Venous Blood Culture - Preliminary NO GROWTH OBTAINED AFTER 24 HOURS, INCUBATION TO CONTINUE FOR 4 DAYS. 04/30/19 12:30 Urine - Urine Clean Catch Urine Culture - Final NO GROWTH OBTAINED Laboratory Results - last 24 hr 04/30/19 04/30/19 04/30/19 09:00 21:10 21:55 WBC RBC Hgb Hct MCV MCH MCHC RDW Plt Count MPV Absolute Neuts (auto) Neutrophils % Neutrophils % (Manual) Band Neutrophils % Lymphocytes % Lymphocytes % (Manual) Monocytes % Monocytes % (Manual) Eosinophils % Eosinophils % (Manual) Basophils % Basophils % (Manual) Myelocytes % (Man) Promyelocytes % (Man) Blast Cells % (Manual) Nucleated RBC % Metamyelocytes Hypochromia Toxic Granulation Platelet Estimate Platelet Comment Polychromasia Poikilocytosis Anisocytosis Microcytosis Macrocytosis Spherocytes Target Cells Tere Cells Anticoagulation Therapy Puncture Site ABG pH ABG pCO2 at Pt Temp ABG pO2 at Pt Temp ABG HCO3 ABG O2 Sat (Measured) ABG O2 Content ABG Base Excess Darell Test O2 Delivery Device Oxygen Flow Rate Vent Mode Vent Rate Mechanical Rate PEEP Pressure Support Vent Sodium Potassium Chloride Carbon Dioxide Anion Gap BUN Creatinine Est GFR (CKD-EPI)AfAm Est GFR (CKD-EPI)NonAf POC Glucometer 252 Random Glucose Lactic Acid 6.1 H* Calcium Phosphorus Magnesium Total Bilirubin AST ALT Alkaline Phosphatase Total Protein Albumin Blood Type A POSITIVE Antibody Screen Negative Crossmatch IS Only See Detail 05/01/19 05/01/19 05/01/19 05:23 06:00 06:00 WBC 22.3 H RBC 3.89 L Hgb 10.9 L Hct 34.0 L MCV 87.3 MCH 28.1 MCHC 32.2 RDW 15.9 Plt Count 156 MPV 10.5 Absolute Neuts (auto) 18.5 H Neutrophils % 83.1 H Neutrophils % (Manual) 10.1 L D Band Neutrophils % 32.3 Lymphocytes % 6.0 L D Lymphocytes % (Manual) 4.0 L D Monocytes % 10.7 H D Monocytes % (Manual) 7 Eosinophils % 0.1 Eosinophils % (Manual) 0.0 D Basophils % 0.1 Basophils % (Manual) 0.0 Myelocytes % (Man) 19 H Promyelocytes % (Man) 0 Blast Cells % (Manual) 0 Nucleated RBC % 0 Metamyelocytes 20 H Hypochromia 0 Toxic Granulation 2+ Platelet Estimate Decreased Platelet Comment Present Polychromasia 0 Poikilocytosis 2+ Anisocytosis 2+ Microcytosis 2+ Macrocytosis 0 Spherocytes 1+ Target Cells 1+ [place] Cells 2+ Anticoagulation Therapy Puncture Site ABG pH ABG pCO2 at Pt Temp ABG pO2 at Pt Temp ABG HCO3 ABG O2 Sat (Measured) ABG O2 Content ABG Base Excess Darell Test O2 Delivery Device Oxygen Flow Rate Vent Mode Vent Rate Mechanical Rate PEEP Pressure Support Vent Sodium 129 L Potassium 5.5 H Chloride 100 Carbon Dioxide 12 L Anion Gap 18 H BUN 25.4 H Creatinine 1.9 H Est GFR (CKD-EPI)AfAm 42.24 Est GFR (CKD-EPI)NonAf 36.45 POC Glucometer 332 Random Glucose 353 H Lactic Acid Calcium 7.0 L Phosphorus 6.6 H Magnesium 1.5 L Total Bilirubin 0.7 AST 1911 H ALT 1078 H Alkaline Phosphatase 32 L Total Protein 4.5 L Albumin 1.9 L Blood Type Antibody Screen Crossmatch IS Only 05/01/19 05/01/19 05/01/19 07:00 11:10 12:00 WBC RBC Hgb Hct MCV MCH MCHC RDW Plt Count MPV Absolute Neuts (auto) Neutrophils % Neutrophils % (Manual) Band Neutrophils % Lymphocytes % Lymphocytes % (Manual) Monocytes % Monocytes % (Manual) Eosinophils % Eosinophils % (Manual) Basophils % Basophils % (Manual) Myelocytes % (Man) Promyelocytes % (Man) Blast Cells % (Manual) Nucleated RBC % Metamyelocytes Hypochromia Toxic Granulation Platelet Estimate Platelet Comment Polychromasia Poikilocytosis Anisocytosis Microcytosis Macrocytosis Spherocytes Target Cells [place] Cells Anticoagulation Therapy No Result Required. Puncture Site Left radial ABG pH 7.25 L ABG pCO2 at Pt Temp 24.5 L ABG pO2 at Pt Temp 114 H ABG HCO3 10.3 L ABG O2 Sat (Measured) 97.0 ABG O2 Content No Result Required. ABG Base Excess -15.5 L Darell Test No Result Required. O2 Delivery Device No Result Required. Oxygen Flow Rate 60 Vent Mode No Result Required. Vent Rate 14 Mechanical Rate No Result Required. PEEP 5.0 Pressure Support Vent No Result Required. Sodium Potassium Chloride Carbon Dioxide Anion Gap BUN Creatinine Est GFR (CKD-EPI)AfAm Est GFR (CKD-EPI)NonAf POC Glucometer 324 Random Glucose Lactic Acid 9.7 H* Calcium Phosphorus Magnesium Total Bilirubin AST ALT Alkaline Phosphatase Total Protein Albumin Blood Type Antibody Screen Crossmatch IS Only 05/01/19 05/01/19 16:00 16:20 WBC RBC Hgb Hct MCV MCH MCHC RDW Plt Count MPV Absolute Neuts (auto) Neutrophils % Neutrophils % (Manual) Band Neutrophils % Lymphocytes % Lymphocytes % (Manual) Monocytes % Monocytes % (Manual) Eosinophils % Eosinophils % (Manual) Basophils % Basophils % (Manual) Myelocytes % (Man) Promyelocytes % (Man) Blast Cells % (Manual) Nucleated RBC % Metamyelocytes Hypochromia Toxic Granulation Platelet Estimate Platelet Comment Polychromasia Poikilocytosis Anisocytosis Microcytosis Macrocytosis Spherocytes Target Cells [place] Cells Anticoagulation Therapy Puncture Site ABG pH ABG pCO2 at Pt Temp ABG pO2 at Pt Temp ABG HCO3 ABG O2 Sat (Measured) ABG O2 Content ABG Base Excess Darell Test O2 Delivery Device Oxygen Flow Rate Vent Mode Vent Rate Mechanical Rate PEEP Pressure Support Vent Sodium 130 L Potassium 5.5 H Chloride 100 Carbon Dioxide 16 L Anion Gap 14 BUN 31.8 H Creatinine 2.3 H Est GFR (CKD-EPI)AfAm 33.53 Est GFR (CKD-EPI)NonAf 28.93 POC Glucometer 282 Random Glucose 280 H Lactic Acid Calcium 7.0 L Phosphorus Magnesium Total Bilirubin AST ALT Alkaline Phosphatase Total Protein Albumin Blood Type Antibody Screen Crossmatch IS Only Current Medications Generic Name Dose Route Start Last Admin Trade Name Freq PRN Reason Stop Dose Admin Enoxaparin Sodium 40 mg 05/01/19 10:00 05/01/19 09:56 Lovenox - SQ 40 mg DAILY MARYSE Administration Pantoprazole Sodium 80 mg/ 100 mls @ 10 mls/hr 04/30/19 16:45 05/01/19 13:50 Sodium Chloride IVPB 05/03/19 16:46 10 mls/hr Q10H MARYSE Administration 8 MG/HR Piperacillin Sod/Tazobactam 50 mls @ 100 mls/hr 04/30/19 18:00 05/01/19 17:02 Sod 3.375 gm/ Dextrose IVPB 100 mls/hr Q8H-IV MARYSE Administration Protocol Propofol 1,000,000 mcg in 100 mls @ 5.361 mls/hr 04/30/19 17:15 05/01/19 18: 25 Diprivan - IVPB 10 mcg/kg/min TITR MARYSE 5.361 mls/hr Administration Protocol 10 MCG/KG/MIN Fluconazole 100 mls @ 100 mls/hr 04/30/19 18:00 05/01/19 10:01 Diflucan 200 Mg/Ns Premixed Ivpb - IVPB 100 mls/hr DAILY MARYSE Administration Norepinephrine Bitartrate 4, 500 mls @ 37.5 mls/hr 04/30/19 19:30 05/01/19 10 :00 000 mcg/ Dextrose IV 15 mcg/min TITR MARYSE 112.5 mls/hr Titration Protocol 5 MCG/MIN Vasopressin 50 units/ Sodium 100 mls @ 4 mls/hr 04/30/19 19:30 05/01/19 10:00 Chloride IVPB 0 units/hr ASDIR MARYSE 0 mls/hr Titration Protocol 2 UNITS/HR Fentanyl 500 mcg/ Dextrose 100 mls @ 5 mls/hr 05/01/19 12:15 05/01/19 13:22 IVPB 25 mcg/hr TITR MARYSE 5 mls/hr Administration Protocol 25 MCG/HR Lactated Ringer's 1,000 mls @ 100 mls/hr 05/01/19 12:13 05/01/19 12:45 Lactated Ringers Solution IV 100 mls/hr ASDIR MARYSE Administration Sodium Chloride 1,000 mls @ 100 mls/hr 05/01/19 18:00 05/01/19 18:25 Normal Saline - IV 100 mls/hr ASDIR MARYSE Administration Insulin Aspart 1 vial 05/01/19 07:00 05/01/19 17:01 Novolog Vial Sliding Scale - SQ 6 units TIDAC MARYSE Administration Protocol Mupirocin 1 applic 04/30/19 22:00 05/01/19 10:02 Bactroban Ointment (For Decolonization) - NS 05/05/19 21:59 1 applic BID MARYSE Administration Ondansetron HCl 4 mg 04/30/19 16:45 Zofran Injection IVPUSH Q6H PRN NAUSEA AND/OR VOMITING Sodium Bicarbonate 50 meq 04/30/19 18:33 Sodium Bicarbonate 8.4% - IV 04/30/19 18:34 ONCE ONE A/P: 64 M h/o MR, HTN, DM, b/l LE swelling who was BIBEMS for a 1 day h/o Hypotension (70/51), lethargy and tachycardia. Admitted for perforated duodenal ulcer requiring ex-lap. Will be managed in the ICU. Perforated duodenal ulcer s/p exlap POD #[address] per surgery NGT SHOULD NOT BE REMOVED OR MANIPULATED for 1 week Patient on protonix GTT cont. Zosyn and Fluconazole, given 1 dose of Flagyl glory-operatively Follow cx, adjust abx accordingly Septic shock d/t perforated ulcer, now holding BP off pressors cont. IV hydration, abx, trend lactate, NPO for now Surgery consult: Dr Bhat T2DM insulin drip as needed to maintain F/S 140-180 DVT ppx: Lovenox SC cleared for AC as per surgery team GI ppx: PPI ICU monitoring
[2019-05-02] MEDS: PANTOPRAZOLE SODIUM 80 MG in SODIUM CHLORIDE 100 ML IVPB SCH ×2 (01:56→10:08)
[2019-05-02] MEDS: PIPERACILLIN/TAZOB 3.375 GM 3.375 GM in DEXTROSE 5%-WATER - 50 ML IVPB SCH ×3 (01:57→17:11)
[2019-05-02 06:47] LABS: BASO % 0.2 % (0-2.0); EOS % 1.2 % (0-4.5); HEMATOCRIT 31.4 % (35.4-49); HEMOGLOBIN 10.6 GM/dL (11.7-16.9); MCH 28.4 pg (25.7-33.7); MCHC 33.9 g/dl (32.0-35.9); MEAN CELL VOLUME 83.9 fl (80-96); MEAN PLT VOLUME 9.9 fl (7.5-11.1); MONO % 6.5 % (3.8-10.2); NEUT % 88.1 % (42.8-82.8); PLATELET COUNT 102 K/MM3 (134-434); RBC 3.74 M/mm3 (4.00-5.60); RDW 15.4 % (11.9-15.9)
[2019-05-02] MEDS: PROPOFOL 1,000,000 MCG/100 ML VIAL IVPB SCH ×3 (06:58→22:08)
[2019-05-02] MEDS: SODIUM CHLORIDE 1,000 ML IV SCH (06:59)
[2019-05-02 07:03] LABS: WHITE BLOOD COUNT 36.8 K/mm3 (4.0-10.0)
[2019-05-02 07:49] LABS: BLOOD UREA NITROGEN 40.9 mg/dL (7-18); CREATININE 2.8 mg/dL (0.55-1.3); POTASSIUM 5.6 mmol/L (3.5-5.1)
[2019-05-02 07:50] LABS: BILIRUBIN,TOTAL 1.3 mg/dL (0.2-1); MAGNESIUM 1.4 mg/dL (1.8-2.4); PHOSPHOROUS 6.4 mg/dL (2.5-4.9); TOT PROT 4.7 g/dl (6.4-8.2)
[2019-05-02] MEDS ORDERED: MAGNESIUM SULF 50% (8.12 MEQ/2 ML-1 GM VIAL) IVPB ONE (08:01)
[2019-05-02 09:51] LABS: ANISOCYTOSIS 1+; MACROCYTOSIS 0; PLATELET ESTIMATE DECREASED; TOXIC GRANULATION 1+
[2019-05-02] MEDS ORDERED: PIPERACILLIN/TAZOBACTAM 3.375 GM VIAL IVPB ONE ×2 (09:55→17:03)
[2019-05-02] MEDS ORDERED: DEXTROSE 5%-WATER - 50 ML IVPB ONE ×2 (09:55→17:04)
[2019-05-02] MEDS: FLUCONAZOLE 200 MG/NS 100 ML IVPB SCH (10:09)
[2019-05-02] MEDS: ENOXAPARIN NA (PORCINE) 40 MG/0.4 ML DISP.SYRIN SQ SCH (10:09)
--- NOTE | 2019-05-02 10:10 | PN ---
Teaching Attending Note Name of Resident: Monica Combs ATTENDING PHYSICIAN STATEMENT I saw and evaluated the patient. I reviewed the resident's note and discussed the case with the resident. I agree with the resident's findings and plan as documented. SUBJECTIVE: Patient seen and examined in the ICU. Intubated and sedated, AC Mode of vent. Remains on NE for hemodynamic support. ETT adjusted. Intake & Output 04/29/19 04/30/19 05/01/19 05/02/19 23:59 23:59 23:59 23:59 Intake Total 7650 1585 Output Total 1115 1550 Balance 6535 35 Weight 197 lb 197 lb Last Vital Signs Temp Pulse Resp BP Pulse Ox 98.2 F 86 21 H 121/89 100 05/02/19 08:11 05/02/19 08:11 05/02/19 08:11 05/02/19 08:11 05/02/19 08:11 Active Medications Enoxaparin Sodium (Lovenox -) 40 mg SQ DAILY MARYSE Last Admin: 05/01/19 09:56 Dose: 40 mg Pantoprazole Sodium 80 mg/ (Sodium Chloride) 100 mls @ 10 mls/hr IVPB Q10H MARYSE Stop: 05/03/19 16:46 Last Admin: 05/02/19 01:56 Dose: 10 mls/hr Piperacillin Sod/Tazobactam (Sod 3.375 gm/ Dextrose) 50 mls @ 100 mls/hr IVPB Q8H-IV MARYSE; Protocol Last Admin: 05/02/19 01:57 Dose: 100 mls/hr Propofol (Diprivan -) 1,000,000 mcg in 100 mls @ 5.361 mls/hr IVPB TITR MARYSE; Protocol Last Admin: 05/02/19 06:58 Dose: 10 mcg/kg/min, 5.361 mls/hr Fluconazole (Diflucan 200 Mg/Ns Premixed Ivpb -) 100 mls @ 100 mls/hr IVPB DAILY MARYSE Last Admin: 05/01/19 10:01 Dose: 100 mls/hr Norepinephrine Bitartrate 4, (000 mcg/ Dextrose) 500 mls @ 37.5 mls/hr IV TITR MARYSE; Protocol Last Admin: 05/01/19 21:13 Dose: Not Given Vasopressin 50 units/ Sodium (Chloride) 100 mls @ 4 mls/hr IVPB ASDIR MARYSE; Protocol Last Admin: 05/01/19 21:14 Dose: Not Given Fentanyl 500 mcg/ Dextrose 100 mls @ 5 mls/hr IVPB TITR [facility]; Protocol Last Admin: 05/01/19 13:22 Dose: 25 mcg/hr, 5 mls/hr Sodium Chloride (Normal Saline -) 1,000 mls @ 100 mls/hr IV ASDIR MARYSE Last Admin: 05/02/19 06:59 Dose: 100 mls/hr Insulin Aspart (Novolog Vial Sliding Scale -) 1 vial SQ TIDAC MARYSE; Protocol Last Admin: 05/01/19 17:01 Dose: 6 units Mupirocin (Bactroban Ointment (For Decolonization) -) 1 applic NS BID MARYSE Stop: 05/05/19 21:59 Last Admin: 05/01/19 21:17 Dose: 1 applic Ondansetron HCl (Zofran Injection) 4 mg IVPUSH Q6H PRN PRN Reason: NAUSEA AND/OR VOMITING Sodium Bicarbonate (Sodium Bicarbonate 8.4% -) 50 meq IV ONCE ONE Stop: 04/30/19 18:34 GENERAL: Intubated and sedated. EYES: Pupils equal, round and sluggishly reactive to light. LUNGS: Breath sounds equal, clear to auscultation bilaterally. No wheezes, and no crackles. No accessory muscle use. HEART: Regular rate and rhythm, normal S1 and S2 without murmur, rub or gallop. ABDOMEN: Soft, mildly distended, surgical dressing intact, hypoactive BS, (+) intact ASHLEY drain. LOWER EXTREMITIES: 2+ pulses, warm, well-perfused. No calf tenderness. No peripheral edema. NEUROLOGICAL: sedated. Laboratory Results - last 24 hr 04/30/19 05/01/19 05/01/19 09:00 11:10 12:00 WBC RBC Hgb Hct MCV MCH MCHC RDW Plt Count MPV Absolute Neuts (auto) Neutrophils % Lymphocytes % Monocytes % Eosinophils % Basophils % Nucleated RBC % Anticoagulation Therapy No Result Required. Puncture Site Left radial ABG pH 7.25 L ABG pCO2 at Pt Temp 24.5 L ABG pO2 at Pt Temp 114 H ABG HCO3 10.3 L ABG O2 Sat (Measured) 97.0 ABG O2 Content No Result Required. ABG Base Excess -15.5 L Darell Test No Result Required. O2 Delivery Device No Result Required. Oxygen Flow Rate 60 Vent Mode No Result Required. Vent Rate 14 Mechanical Rate No Result Required. PEEP 5.0 Pressure Support Vent No Result Required. Sodium Potassium Chloride Carbon Dioxide Anion Gap BUN Creatinine Est GFR (CKD-EPI)AfAm Est GFR (CKD-EPI)NonAf POC Glucometer 324 Random Glucose Lactic Acid Calcium Phosphorus Magnesium Total Bilirubin AST ALT Alkaline Phosphatase Total Protein Albumin Blood Type A POSITIVE Antibody Screen Negative Crossmatch IS Only See Detail 05/01/19 05/01/19 05/01/19 16:00 16:20 17:50 WBC RBC Hgb Hct MCV MCH MCHC RDW Plt Count MPV Absolute Neuts (auto) Neutrophils % Lymphocytes % Monocytes % Eosinophils % Basophils % Nucleated RBC % Anticoagulation Therapy Puncture Site ABG pH ABG pCO2 at Pt Temp ABG pO2 at Pt Temp ABG HCO3 ABG O2 Sat (Measured) ABG O2 Content ABG Base Excess Darell Test O2 Delivery Device Oxygen Flow Rate Vent Mode Vent Rate Mechanical Rate PEEP Pressure Support Vent Sodium 130 L Potassium 5.5 H Chloride 100 Carbon Dioxide 16 L Anion Gap 14 BUN 31.8 H Creatinine 2.3 H Est GFR (CKD-EPI)AfAm 33.53 Est GFR (CKD-EPI)NonAf 28.93 POC Glucometer 282 Random Glucose 280 H Lactic Acid 6.3 H* Calcium 7.0 L Phosphorus Magnesium Total Bilirubin AST ALT Alkaline Phosphatase Total Protein Albumin Blood Type Antibody Screen Crossmatch IS Only 05/02/19 05/02/19 05/02/19 06:00 06:00 06:00 WBC 36.8 H* RBC 3.74 L Hgb 10.6 L Hct 31.4 L MCV 83.9 MCH 28.4 MCHC 33.9 RDW 15.4 Plt Count 102 L D MPV 9.9 Absolute Neuts (auto) 32.4 H Neutrophils % 88.1 H Lymphocytes % 4.0 L D Monocytes % 6.5 Eosinophils % 1.2 D Basophils % 0.2 Nucleated RBC % 0 Anticoagulation Therapy Puncture Site ABG pH ABG pCO2 at Pt Temp ABG pO2 at Pt Temp ABG HCO3 ABG O2 Sat (Measured) ABG O2 Content ABG Base Excess Darell Test O2 Delivery Device Oxygen Flow Rate Vent Mode Vent Rate Mechanical Rate PEEP Pressure Support Vent Sodium 129 L Potassium 5.6 H Chloride 100 Carbon Dioxide 17 L Anion Gap 12 BUN 40.9 H Creatinine 2.8 H Est GFR (CKD-EPI)AfAm 26.43 Est GFR (CKD-EPI)NonAf 22.81 POC Glucometer Random Glucose 168 H Lactic Acid 3.0 H* Calcium 7.0 L Phosphorus 6.4 H Magnesium 1.4 L Total Bilirubin 1.3 H AST 4350 H ALT 3334 H Alkaline Phosphatase 53 Total Protein 4.7 L Albumin 2.0 L Blood Type Antibody Screen Crossmatch IS Only 05/02/19 06:26 WBC RBC Hgb Hct MCV MCH MCHC RDW Plt Count MPV Absolute Neuts (auto) Neutrophils % Lymphocytes % Monocytes % Eosinophils % Basophils % Nucleated RBC % Anticoagulation Therapy Puncture Site ABG pH ABG pCO2 at Pt Temp ABG pO2 at Pt Temp ABG HCO3 ABG O2 Sat (Measured) ABG O2 Content ABG Base Excess Darell Test O2 Delivery Device Oxygen Flow Rate Vent Mode Vent Rate Mechanical Rate PEEP Pressure Support Vent Sodium Potassium Chloride Carbon Dioxide Anion Gap BUN Creatinine Est GFR (CKD-EPI)AfAm Est GFR (CKD-EPI)NonAf POC Glucometer 157 Random Glucose Lactic Acid Calcium Phosphorus Magnesium Total Bilirubin AST ALT Alkaline Phosphatase Total Protein Albumin Blood Type Antibody Screen Crossmatch IS Only ASSESSMENT/PLAN: POD #2: exploratory laparotomy, rohan patch repair perforated duodenal ulcer, lavage, retro-rectus block Septic Shock due to 2 cm perforated Duodenal ulcer Acute Respiratory Failure MR by history HTN DM DOMENIC AC Mode of vent Monitor K+ level: repeat labs later today Renal evaluation ABX Per ID Follow CVP to guide IVF resuscitation VTE prophylaxis NGT Pressors to maintain MAP > 65 Strict I & O PPI Follow cultures Requires continued ICU monitoring Dr Desai Critical care time spent in reviewing chart, evaluating patient and formulating plan - 36 minutes.
[2019-05-02] MEDS: INSULIN SLIDING SCALE (NOVOLOG) 1 VIAL SQ SCH ×3 (10:13→16:54)
[2019-05-02] MEDS ORDERED: SODIUM CHLORIDE 500 ML IV STA (10:54)
--- NOTE | 2019-05-02 12:04 | PN ---
Progress Note, Physician History of Present Illness: SEDATED ON VENTILATOR AFEBRILE INCREASED WBC, DECREASED PLT C/S NO GROWTH - Current Medication List Current Medications: Active Medications Enoxaparin Sodium (Lovenox -) 40 mg SQ DAILY MARYSE Last Admin: 05/02/19 10:09 Dose: 40 mg Pantoprazole Sodium 80 mg/ (Sodium Chloride) 100 mls @ 10 mls/hr IVPB Q10H MARYSE Stop: 05/03/19 16:46 Last Admin: 05/02/19 10:08 Dose: Not Given Piperacillin Sod/Tazobactam (Sod 3.375 gm/ Dextrose) 50 mls @ 100 mls/hr IVPB Q8H-IV MARYSE; Protocol Last Admin: 05/02/19 10:10 Dose: 100 mls/hr Fluconazole (Diflucan 200 Mg/Ns Premixed Ivpb -) 100 mls @ 100 mls/hr IVPB DAILY MARYSE Last Admin: 05/02/19 10:09 Dose: 100 mls/hr Norepinephrine Bitartrate 4, (000 mcg/ Dextrose) 500 mls @ 37.5 mls/hr IV TITR MARYSE; Protocol Last Admin: 05/01/19 21:13 Dose: Not Given Vasopressin 50 units/ Sodium (Chloride) 100 mls @ 4 mls/hr IVPB ASDIR MARYSE; Protocol Last Admin: 05/01/19 21:14 Dose: Not Given Fentanyl 500 mcg/ Dextrose 100 mls @ 5 mls/hr IVPB TITR MARYSE; Protocol Last Admin: 05/01/19 13:22 Dose: 25 mcg/hr, 5 mls/hr Sodium Chloride (Normal Saline -) 1,000 mls @ 100 mls/hr IV ASDIR MARYSE Last Admin: 05/02/19 06:59 Dose: 100 mls/hr Propofol (Diprivan -) 1,000,000 mcg in 100 mls @ 6.222 mls/hr IVPB TITR MARYSE; Protocol Insulin Aspart (Novolog Vial Sliding Scale -) 1 vial SQ TIDAC MARYSE; Protocol Last Admin: 05/02/19 11:11 Dose: Not Given Mupirocin (Bactroban Ointment (For Decolonization) -) 1 applic NS BID MARYSE Stop: 05/05/19 21:59 Last Admin: 05/01/19 21:17 Dose: 1 applic Ondansetron HCl (Zofran Injection) 4 mg IVPUSH Q6H PRN PRN Reason: NAUSEA AND/OR VOMITING Sodium Bicarbonate (Sodium Bicarbonate 8.4% -) 50 meq IV ONCE ONE Stop: 04/30/19 18:34 - Objective Vital Signs: Vital Signs Temperature 98.2 F 05/02/19 08:11 Pulse Rate 86 05/02/19 08:11 Respiratory Rate 21 H 05/02/19 08:11 Blood Pressure 121/89 05/02/19 08:11 O2 Sat by Pulse Oximetry (%) 100 05/02/19 08:11 Constitutional: Yes: No Distress, Obese Eyes: Yes: Conjunctiva Clear Cardiovascular: Yes: Regular Rate and Rhythm, S1, S2 Respiratory: Yes: Mechanically Ventilated Gastrointestinal: Yes: Normal Bowel Sounds, Soft. No: Tenderness Labs: CBC, BMP 05/02/19 06:00 05/02/19 06:00 INR, PTT INR 1.34 (0.83-1.09) H 04/30/19 17:30 Assessment/Plan S/P PERFORATED PEPTIC ULCER LEUKOCYTOSIS DOMENIC SHOCK LIVER LACTIC ACIDOSIS CONTINUE VENTILATORY/ HEMODYNAMIC SUPPORT EMPIRIC ZOSYN/ FLUCONAZOLE
--- NOTE | 2019-05-02 12:37 | CON.NEP ---
Consult Consult Specialty:: NEPHROLOGY Reason for Consultation:: domenic - History of Present Illness Chief Complaint: domenic History of Present Illness: This is a 64 year old man with history of MR, HTN, DM, fluid overload who presented with a perforated duodenal ulcer and had exploratory lap. He is currently intubated and unable to give a history. Has DOMENIC and nephrology is called. Has been on pressors and sedation. Is oliguric and has a lactic acidosis. - History Source History Provided By: Medical Record - Alcohol/Substance Use Hx Alcohol Use: No - Smoking History Smoking history: Never smoked Aproximately how many cigarettes per day: 0 Home Medications - Allergies Allergies/Adverse Reactions: Allergies Allergy/AdvReac Type Severity Reaction Status Date / Time No Known Allergies Allergy Verified 04/30/19 09:00 - Home Medications Home Medications: Ambulatory Orders Amlodipine Besylate [Norvasc -] 10 mg PO HS 07/29/17 Aspirin [Aspirin EC] 81 mg PO DAILY 07/29/17 Atenolol [Tenormin -] 50 mg PO DAILY 07/29/17 Atorvastatin Ca [Lipitor] 20 mg PO HS 07/29/17 Clotrimazole/Betamethasone Dip [Clotrimazole-Betamethasone Crm] 1 applic TP BID 07/29/17 Desonide 1 applic TP BID 07/29/17 Divalproex [Depakote -] 1,500 mg PO DAILY 07/29/17 Docusate Sodium [Colace -] 100 mg PO TID 07/29/17 Fluocinolone Acetonide 1 applic TP BID 07/29/17 Fluticasone Propionate [Flovent Diskus] 50 mcg IH BID 07/29/17 Ketoconozole 2% Cream [Nizoral 2% Cream -] 1 applic TP BID 07/29/17 Lisinopril [Prinivil -] 40 mg PO DAILY 07/29/17 Loratadine [Claritin -] 10 mg PO DAILY 07/29/17 Naproxen [Naprosyn -] 375 mg PO BID PRN 07/29/17 Olanzapine [Zyprexa -] 10 mg PO BID 07/29/17 Pioglitazone HCl [Actos] 15 mg PO DAILY 07/29/17 metFORMIN HCL [Metformin HCl ER] 1,000 mg PO BID 07/29/17 Diphenhydramine HCl/Zinc Acet [Benadryl 2% Cream] 1 applic TP TID #1 tube Cephalexin Monohydrate [Keflex -] 250 mg PO Q8H #21 capsule 01/05/19 Review of Systems Unable to obtain ROS, reason: intubated Nephrology Consult - Height Height: 5 ft 6 in - Weight Weight: 228 lb 9.91 oz - BMI Body Mass Index (BMI): 36.8 - Lab Results CBC,BMP: CBC, BMP 05/02/19 06:00 05/02/19 06:00 Anion Gap: Anion Gap Anion Gap 12 MMOL/L (8-16) 05/02/19 06:00 - Imaging Chest X-ray: Report Reviewed - Physical Examination Vital Signs: Vital Signs Temperature 98.2 F 05/02/19 08:11 Pulse Rate 86 05/02/19 08:11 Respiratory Rate 21 H 05/02/19 08:11 Blood Pressure 121/89 05/02/19 08:11 O2 Sat by Pulse Oximetry (%) 100 05/02/19 08:11 Constitutional: Yes: Well Nourished, No Distress Eyes: Yes: Conjunctiva Clear HENT: Yes: Atraumatic, Normocephalic Neck: Yes: Supple, Trachea Midline Cardiovascular: Yes: Regular Rate and Rhythm Respiratory: Yes: Regular Gastrointestinal: Yes: Soft Musculoskeletal: Yes: WNL Edema: Yes Edema: LLE: 1+, RLE: 1+ Wound/Incision: Yes: Well Approximated Neurological: Yes: Unresponsive, Other (sedated) Assessment/Plan IMPRESSION Oliguric DOMENIC probably from sepstic shock from perforated duodenal ulcer fluid overload MR DM possible ckd transamitis and mild icterus hyperkalemia PLAN would give a trial of lasix change fluids to 1/2 ns with bicarb to help lowering his k may need hd if k not coming down since he can not have his GI ytract used continue pressors with goal of map above 70 GI eval of lft's ?sonogram of abd obtain CK MV
[2019-05-02] MEDS: FENTANYL INJECTION 500 MCG in DEXTROSE 5%-WATER - 90 ML IVPB SCH (13:50)
[2019-05-02] MEDS: MUPIROCIN 2% TOPICAL OINTMENT FOR DECOLONIZATION NS SCH ×2 (13:50→22:05)
[2019-05-02] MEDS: SODIUM BICARBONATE 8.4% - 75 MEQ in DEXTROSE 5%-0.45% SALINE 925 ML IV SCH (14:44)
[2019-05-02 15:52] LABS: ALBUMIN 1.9 g/dl (3.4-5.0); BILIRUBIN,TOTAL 1.4 mg/dL (0.2-1); POTASSIUM 5.8 mmol/L (3.5-5.1); TOT PROT 4.5 g/dl (6.4-8.2)
[2019-05-02 15:55] LABS: CALCIUM 6.7 mg/dL (8.5-10.1)
[2019-05-02] MEDS ORDERED: CALCIUM GLUCONATE 10% - 1,000 MG/10 ML VIAL IVPUSH ONE (15:58)
[2019-05-02] MEDS ORDERED: DEXTROSE 50%-WATER - 25 GM/50 ML VIAL IVPUSH ONE (15:59)
[2019-05-02] MEDS ORDERED: FUROSEMIDE 40 MG/4 ML INJECTABLE VIAL IVPUSH ONE (16:02)
[2019-05-02] MEDS ORDERED: INSULIN REGULAR HUMAN 100 UNITS/ML *VIAL IVPUSH ONE (16:02)
[2019-05-02] MEDS ORDERED: DEXTROSE 50%-WATER - 25 GM/50 ML VIAL ONE (16:40)
--- NOTE | 2019-05-02 17:23 | PN ---
<KevonyayaMelissa Carlton - Last Filed: 05/02/19 17:23> Physical Exam: SUBJECTIVE: Patient seen and examined at bedside this morning. Still on pressors , on Levophed 14. Sedated, intubated. OBJECTIVE: Vital Signs Temperature 98.2 F 05/02/19 08:11 Pulse Rate 74 05/02/19 16:00 Respiratory Rate 14 05/02/19 16:00 Blood Pressure 94/65 05/02/19 10:00 O2 Sat by Pulse Oximetry (%) 100 05/02/19 08:11 GENERAL: The patient is sedated, intubated. HEAD: Normal with no signs of trauma. EYES: Pupils constricted, sluggishly reactive, Anicteric sclerae, conjunctivae clear. NECK: Trachea midline, full range of motion, supple. LUNGS: Coarse breath sounds bilaterally HEART: Regular rate and rhythm, S1, S2 ABDOMEN:Soft, mildly distended, surgical dressing intact, hypoactive BS, (+) intact ASHLEY drain. EXTREMITIES: 2+ pulses, warm, well-perfused, +bilateraly peripheral edema NEUROLOGICAL: intubated, sedated SKIN: Warm, dry, normal turgor. Laboratory Results - last 24 hr 05/01/19 05/01/19 05/02/19 16:00 17:50 06:00 WBC 36.8 H* RBC 3.74 L Hgb 10.6 L Hct 31.4 L MCV 83.9 MCH 28.4 MCHC 33.9 RDW 15.4 Plt Count 102 L D MPV 9.9 Absolute Neuts (auto) 32.4 H Neutrophils % 88.1 H Neutrophils % (Manual) 30.3 L D Band Neutrophils % 31.3 Lymphocytes % 4.0 L D Lymphocytes % (Manual) 4.0 L Monocytes % 6.5 Monocytes % (Manual) 9 Eosinophils % 1.2 D Eosinophils % (Manual) 0.0 Basophils % 0.2 Basophils % (Manual) 0.0 Myelocytes % (Man) 9 H D Promyelocytes % (Man) 0 Blast Cells % (Manual) 0 Nucleated RBC % 0 Metamyelocytes 14 H D Hypochromia 0 Toxic Granulation 1+ Platelet Estimate Decreased Polychromasia 1+ Poikilocytosis 1+ Anisocytosis 1+ Microcytosis 1+ Macrocytosis 0 Spherocytes 1+ Fragmented RBCs 1+ Sodium 130 L Potassium 5.5 H Chloride 100 Carbon Dioxide 16 L Anion Gap 14 BUN 31.8 H Creatinine 2.3 H Est GFR (CKD-EPI)AfAm 33.53 Est GFR (CKD-EPI)NonAf 28.93 POC Glucometer Random Glucose 280 H Lactic Acid 6.3 H* Calcium 7.0 L Phosphorus Magnesium Total Bilirubin AST ALT Alkaline Phosphatase Total Protein Albumin 05/02/19 05/02/19 05/02/19 06:00 06:00 06:26 WBC RBC Hgb Hct MCV MCH MCHC RDW Plt Count MPV Absolute Neuts (auto) Neutrophils % Neutrophils % (Manual) Band Neutrophils % Lymphocytes % Lymphocytes % (Manual) Monocytes % Monocytes % (Manual) Eosinophils % Eosinophils % (Manual) Basophils % Basophils % (Manual) Myelocytes % (Man) Promyelocytes % (Man) Blast Cells % (Manual) Nucleated RBC % Metamyelocytes Hypochromia Toxic Granulation Platelet Estimate Polychromasia Poikilocytosis Anisocytosis Microcytosis Macrocytosis Spherocytes Fragmented RBCs Sodium 129 L Potassium 5.6 H Chloride 100 Carbon Dioxide 17 L Anion Gap 12 BUN 40.9 H Creatinine 2.8 H Est GFR (CKD-EPI)AfAm 26.43 Est GFR (CKD-EPI)NonAf 22.81 POC Glucometer 157 Random Glucose 168 H Lactic Acid 3.0 H* Calcium 7.0 L Phosphorus 6.4 H Magnesium 1.4 L Total Bilirubin 1.3 H AST 4350 H ALT 3334 H Alkaline Phosphatase 53 Total Protein 4.7 L Albumin 2.0 L 05/02/19 05/02/19 05/02/19 11:10 14:20 16:24 WBC RBC Hgb Hct MCV MCH MCHC RDW Plt Count MPV Absolute Neuts (auto) Neutrophils % Neutrophils % (Manual) Band Neutrophils % Lymphocytes % Lymphocytes % (Manual) Monocytes % Monocytes % (Manual) Eosinophils % Eosinophils % (Manual) Basophils % Basophils % (Manual) Myelocytes % (Man) Promyelocytes % (Man) Blast Cells % (Manual) Nucleated RBC % Metamyelocytes Hypochromia Toxic Granulation Platelet Estimate Polychromasia Poikilocytosis Anisocytosis Microcytosis Macrocytosis Spherocytes Fragmented RBCs Sodium 128 L Potassium 5.8 H Chloride 100 Carbon Dioxide 15 L Anion Gap 13 BUN 42.0 H Creatinine 3.0 H Est GFR (CKD-EPI)AfAm 24.32 Est GFR (CKD-EPI)NonAf 20.98 POC Glucometer 160 202 Random Glucose 212 H Lactic Acid Calcium 6.7 L* Phosphorus Magnesium Total Bilirubin 1.4 H AST 2863 H ALT 2739 H Alkaline Phosphatase 66 Total Protein 4.5 L Albumin 1.9 L Active Medications Generic Name Dose Route Start Last Admin Trade Name Freq PRN Reason Stop Dose Admin Enoxaparin Sodium 40 mg 05/01/19 10:00 05/02/19 10:09 Lovenox - SQ 40 mg DAILY MARYSE Administration Pantoprazole Sodium 80 mg/ 100 mls @ 10 mls/hr 04/30/19 16:45 05/02/19 10:08 Sodium Chloride IVPB 05/03/19 16:46 Not Given Q10H MARYSE 8 MG/HR Piperacillin Sod/Tazobactam 50 mls @ 100 mls/hr 04/30/19 18:00 05/02/19 10:10 Sod 3.375 gm/ Dextrose IVPB 100 mls/hr Q8H-IV MARYSE Administration Protocol Fluconazole 100 mls @ 100 mls/hr 04/30/19 18:00 05/02/19 10:09 Diflucan 200 Mg/Ns Premixed Ivpb - IVPB 100 mls/hr DAILY MARYSE Administration Norepinephrine Bitartrate 4, 500 mls @ 37.5 mls/hr 04/30/19 19:30 05/01/19 21 :13 000 mcg/ Dextrose IV Not Given TITR MARYSE Protocol 5 MCG/MIN Vasopressin 50 units/ Sodium 100 mls @ 4 mls/hr 04/30/19 19:30 05/01/19 21:14 Chloride IVPB Not Given ASDIR MARYSE Protocol 2 UNITS/HR Fentanyl 500 mcg/ Dextrose 100 mls @ 5 mls/hr 05/01/19 12:15 05/02/19 13:50 IVPB Not Given TITR MARYSE Protocol 25 MCG/HR Propofol 1,000,000 mcg in 100 mls @ 6.222 mls/hr 05/02/19 12:00 05/02/19 13: 46 Diprivan - IVPB 24.1 mcg/kg/min TITR MARYSE 15 mls/hr Administration Protocol 10 MCG/KG/MIN Sodium Bicarbonate 75 meq/ 1,000 mls @ 100 mls/hr 05/02/19 13:00 05/02/19 14: 44 Dextrose/Sodium Chloride IV 100 mls/hr Q10H MARYSE Administration Insulin Aspart 1 vial 05/01/19 07:00 05/02/19 16:54 Novolog Vial Sliding Scale - SQ Not Given TIDAC [facility] Protocol Mupirocin 1 applic 04/30/19 22:00 05/02/19 13:50 Bactroban Ointment (For Decolonization) - NS 05/05/19 21:59 Not Given BID MARYSE Ondansetron HCl 4 mg 04/30/19 16:45 Zofran Injection IVPUSH Q6H PRN NAUSEA AND/OR VOMITING Sodium Bicarbonate 50 meq 04/30/19 18:33 Sodium Bicarbonate 8.4% - IV 04/30/19 18:34 ONCE ONE ASSESSMENT/PLAN: Patient is a 64 year old male with past medical history of MR, HTN, DM, new fluid restriction 2/2 BLE swelling, was brought in from [facility] due to lethargy, hypotension, and tachycardia. Admitted for perforated duodenal ulcer requiring ex-lap. #Septic shock 2/2 perforated duodenal ulcer s/p ex-lap -CTAP: pneumoperitoneum consistent with a perforated viscus. Thickening of a distal small bowel loop up to and including the terminal ileum suggestive of inflammatory/infectious process. -POD 2: s/p Ex-Lap w/ Jack Patch repair perforated duodenal ulcer, lavage, retro-rectus block -Surgery (Dr. Bhat)consulted. Recs appreciated -NGT placed. NGT should not be removed or manipulated for 1 week. -Protonix drip -Pressors to maintain MAP>65 [facility] -cont. Zosyn and Fluconazole -NPO -IVF #DOMENIC likely 2/2 septic shock, fluid overload #Hyperkalemia -trial of lasix given -change fluids to 1/2 NS with bicarb to help lower K -May need HD if K not coming down -Nephrology (Dr. Evangelista) consulted. Recommendations appreciated. #DM -Insulin sliding scale implemented -BGM TIDAC #HTN -patient hypotensive, hold BP meds -pressors to maintain MAP>65 #FEN -IV LR @75cc/hr -Electrolytes wnl, routine bmp monitoring -NPO #Prophylaxis -Heparin 5000u sq tid -Protonix for GI ppx #Disposition -full code -admit to ICU for closer monitoring Visit type - Emergency Visit Emergency Visit: Yes ED Registration Date: 04/30/19 Care time: The patient presented to the Emergency Department on the above date and was hospitalized for further evaluation of their emergent condition. - New Patient This patient is new to me today: Yes Date on this admission: 05/02/19 - Critical Care Critical Care patient: Yes Total Critical Care Time (in minutes): 35 Critical Care Statement: The care of this patient involved high complexity decision making to prevent further life threatening deterioration of the patient 's condition and/or to evaluate & treat vital organ system(s) failure or risk of failure. ATTENDING PHYSICIAN STATEMENT I saw and evaluated the patient. I reviewed the resident's note and discussed the case with the resident. I agree with the resident's findings and plan as documented. SUBJECTIVE: OBJECTIVE: ASSESSMENT AND PLAN: <Abigail Hart - Last Filed: 05/02/19 17:57> Physical Exam: SUBJECTIVE: Patient seen and examined OBJECTIVE: Vital Signs Period Temp Pulse Resp BP Sys/Booth Pulse Ox Last 24 Hr 98.2 F-98.4 F 71-86 14-21 79-121/60-89 100-100 GENERAL: The patient is awake, alert, and fully oriented, in no acute distress. HEAD: Normal with no signs of trauma. EYES: PERRL, extraocular movements intact, sclera anicteric, conjunctiva clear. No ptosis. ENT: Ears normal, nares patent, oropharynx clear without exudates, moist mucous membranes. NECK: Trachea midline, full range of motion, supple. LUNGS: Breath sounds equal, clear to auscultation bilaterally, no wheezes, no crackles, no accessory muscle use. HEART: Regular rate and rhythm, S1, S2 without murmur, rub or gallop. ABDOMEN: Soft, nontender, nondistended, normoactive bowel sounds, no guarding, no rebound, no hepatosplenomegaly, no masses. EXTREMITIES: 2+ pulses, warm, well-perfused, no edema. NEUROLOGICAL: Cranial nerves II through XII grossly intact. Normal speech, gait not observed. PSYCH: Normal mood, normal affect. SKIN: Warm, dry, normal turgor, no rashes or lesions noted Laboratory Results - last 24 hr 05/01/19 05/02/19 05/02/19 17:50 06:00 06:00 WBC 36.8 H* RBC 3.74 L Hgb 10.6 L Hct 31.4 L MCV 83.9 MCH 28.4 MCHC 33.9 RDW 15.4 Plt Count 102 L D MPV 9.9 Absolute Neuts (auto) 32.4 H Neutrophils % 88.1 H Neutrophils % (Manual) 30.3 L D Band Neutrophils % 31.3 Lymphocytes % 4.0 L D Lymphocytes % (Manual) 4.0 L Monocytes % 6.5 Monocytes % (Manual) 9 Eosinophils % 1.2 D Eosinophils % (Manual) 0.0 Basophils % 0.2 Basophils % (Manual) 0.0 Myelocytes % (Man) 9 H D Promyelocytes % (Man) 0 Blast Cells % (Manual) 0 Nucleated RBC % 0 Metamyelocytes 14 H D Hypochromia 0 Toxic Granulation 1+ Platelet Estimate Decreased Polychromasia 1+ Poikilocytosis 1+ Anisocytosis 1+ Microcytosis 1+ Macrocytosis 0 Spherocytes 1+ Fragmented RBCs 1+ Sodium 129 L Potassium 5.6 H Chloride 100 Carbon Dioxide 17 L Anion Gap 12 BUN 40.9 H Creatinine 2.8 H Est GFR (CKD-EPI)AfAm 26.43 Est GFR (CKD-EPI)NonAf 22.81 POC Glucometer Random Glucose 168 H Lactic Acid 6.3 H* Calcium 7.0 L Phosphorus 6.4 H Magnesium 1.4 L Total Bilirubin 1.3 H AST 4350 H ALT 3334 H Alkaline Phosphatase 53 Total Protein 4.7 L Albumin 2.0 L 05/02/19 05/02/19 05/02/19 06:00 06:26 11:10 WBC RBC Hgb Hct MCV MCH MCHC RDW Plt Count MPV Absolute Neuts (auto) Neutrophils % Neutrophils % (Manual) Band Neutrophils % Lymphocytes % Lymphocytes % (Manual) Monocytes % Monocytes % (Manual) Eosinophils % Eosinophils % (Manual) Basophils % Basophils % (Manual) Myelocytes % (Man) Promyelocytes % (Man) Blast Cells % (Manual) Nucleated RBC % Metamyelocytes Hypochromia Toxic Granulation Platelet Estimate Polychromasia Poikilocytosis Anisocytosis Microcytosis Macrocytosis Spherocytes Fragmented RBCs Sodium Potassium Chloride Carbon Dioxide Anion Gap BUN Creatinine Est GFR (CKD-EPI)AfAm Est GFR (CKD-EPI)NonAf POC Glucometer 157 160 Random Glucose Lactic Acid 3.0 H* Calcium Phosphorus Magnesium Total Bilirubin AST ALT Alkaline Phosphatase Total Protein Albumin 05/02/19 05/02/19 14:20 16:24 WBC RBC Hgb Hct MCV MCH MCHC RDW Plt Count MPV Absolute Neuts (auto) Neutrophils % Neutrophils % (Manual) Band Neutrophils % Lymphocytes % Lymphocytes % (Manual) Monocytes % Monocytes % (Manual) Eosinophils % Eosinophils % (Manual) Basophils % Basophils % (Manual) Myelocytes % (Man) Promyelocytes % (Man) Blast Cells % (Manual) Nucleated RBC % Metamyelocytes Hypochromia Toxic Granulation Platelet Estimate Polychromasia Poikilocytosis Anisocytosis Microcytosis Macrocytosis Spherocytes Fragmented RBCs Sodium 128 L Potassium 5.8 H Chloride 100 Carbon Dioxide 15 L Anion Gap 13 BUN 42.0 H Creatinine 3.0 H Est GFR (CKD-EPI)AfAm 24.32 Est GFR (CKD-EPI)NonAf 20.98 POC Glucometer 202 Random Glucose 212 H Lactic Acid Calcium 6.7 L* Phosphorus Magnesium Total Bilirubin 1.4 H AST 2863 H ALT 2739 H Alkaline Phosphatase 66 Total Protein 4.5 L Albumin 1.9 L Active Medications Generic Name Dose Route Start Last Admin Trade Name Freq PRN Reason Stop Dose Admin Heparin Sodium (Porcine) 5,000 unit 05/02/19 22:00 Heparin - SQ TID MARYSE Pantoprazole Sodium 80 mg/ 100 mls @ 10 mls/hr 04/30/19 16:45 05/02/19 10:08 Sodium Chloride IVPB 05/03/19 16:46 Not Given Q10H MARYSE 8 MG/HR Piperacillin Sod/Tazobactam 50 mls @ 100 mls/hr 04/30/19 18:00 05/02/19 17:11 Sod 3.375 gm/ Dextrose IVPB 100 mls/hr Q8H-IV MARYSE Administration Protocol Fluconazole 100 mls @ 100 mls/hr 04/30/19 18:00 05/02/19 10:09 Diflucan 200 Mg/Ns Premixed Ivpb - IVPB 100 mls/hr DAILY MARYSE Administration Norepinephrine Bitartrate 4, 500 mls @ 37.5 mls/hr 04/30/19 19:30 05/01/19 21 :13 000 mcg/ Dextrose IV Not Given TITR MARYSE Protocol 5 MCG/MIN Vasopressin 50 units/ Sodium 100 mls @ 4 mls/hr 04/30/19 19:30 05/01/19 21:14 Chloride IVPB Not Given ASDIR MARYSE Protocol 2 UNITS/HR Fentanyl 500 mcg/ Dextrose 100 mls @ 5 mls/hr 05/01/19 12:15 05/02/19 13:50 IVPB Not Given TITR MARYSE Protocol 25 MCG/HR Propofol 1,000,000 mcg in 100 mls @ 6.222 mls/hr 05/02/19 12:00 05/02/19 13: 46 Diprivan - IVPB 24.1 mcg/kg/min TITR MARYSE 15 mls/hr Administration Protocol 10 MCG/KG/MIN Sodium Bicarbonate 75 meq/ 1,000 mls @ 100 mls/hr 05/02/19 13:00 05/02/19 14: 44 Dextrose/Sodium Chloride IV 100 mls/hr Q10H MARYSE Administration Insulin Aspart 1 vial 05/01/19 07:00 05/02/19 16:54 Novolog Vial Sliding Scale - SQ Not Given TIDAC [facility], 1928[facility]1983 Protocol Mupirocin 1 applic 04/30/19 22:00 05/02/19 13:50 Bactroban Ointment (For Decolonization) - NS 05/05/19 21:59 Not Given BID [facility] Ondansetron HCl 4 mg 04/30/19 16:45 Zofran Injection IVPUSH Q6H PRN NAUSEA AND/OR VOMITING Sodium Bicarbonate 50 meq 04/30/19 18:33 Sodium Bicarbonate 8.4% - IV 04/30/19 18:34 ONCE ONE ASSESSMENT/PLAN: ATTENDING PHYSICIAN STATEMENT I saw and evaluated the patient. I reviewed the resident's note and discussed the case with the resident. I agree with the resident's findings and plan as documented. SUBJECTIVE:intubated/sedated OBJECTIVE: Last Vital Signs Temp Pulse Resp BP Pulse Ox 98.2 F 74 14 94/65 100 05/02/19 08:11 05/02/19 16:00 05/02/19 16:00 05/02/19 10:00 05/02/19 08:11 General intubated/sedated HEENT pinpoint pupils. PERRL, +gag Lungs coarse breath sounds anteriorly Heart S1 S2 RRR abdomen soft, midline surgical dressing c/d/i +ASHLEY drain Extremities +pitting edema ASSESSMENT AND PLAN: 64yo M wtih PMH MR, HTN, DM sent from [place] and found to be in septic shock from perforated duodenal ulcer 1. septic shock due to perforated duodenal ulcer- s/p exalp with Jack patch repain, lavage and retro-rectus block. ASHLEY drain in place. on levo 14mcg to maintain MAP >65. on zosyn and fluconazole. surgery and ID on board 2. Acute hypoxic respiratory failure- due to septic shock. requiring high vent support. titrate down as tolerated. further vent management per ICU team 3. DOMENIC- due to septic shock and acidemia. started on bicarb ggt. lasix given. nephro was consulted. appreciate their recommendations 4. Shock liver-mantian pressure with levo. no further workup 5. hyperkalemia- given lasix and insulin/d50. will repeat later today 6. GI/DVT ppx- protonix/hep sq 7. full code. poor prognosis The care of this patient involved high complexity decision making to prevent further life threatening deterioration of the patient's condition and/or to evaluate & treat vital organ system(s) failure or risk of failure. 40 minutes
--- NOTE | 2019-05-02 17:41 | PN ---
Physical Exam: SUBJECTIVE: Patient seen and examined. No acute events overnight. OBJECTIVE: Vital Signs Period Temp Pulse Resp BP Sys/Booth Pulse Ox Last 24 Hr 98.2 F-98.4 F 71-86 14-21 79-121/60-89 100-100 GENERAL: Intubaed and sedated HEAD: Normal with no signs of trauma. EYES: PERRL, extraocular movements intact, sclera anicteric, conjunctiva clear. No ptosis. ENT: Ears normal, nares patent, oropharynx clear without exudates, moist mucous membranes. NGT ~60cm at nares NECK: Trachea midline, full range of motion, supple. LUNGS: Coarse breath sounds equal, clear to auscultation bilaterally, no wheezes , no crackles, no accessory muscle use. HEART: Regular rate and rhythm, S1, S2 without murmur, rub or gallop. ABDOMEN: Soft, nontender, nondistended, hypoactive bowel sounds, surgical dressings overlying mid abd. ASHLEY with SS drainage EXTREMITIES: 2+ pulses, warm, well-perfused, non-pitting edema. NEUROLOGICAL: Sedated. SKIN: Warm, dry, normal turgor, no rashes or lesions noted Laboratory Results - last 24 hr CBC, BMP 05/02/19 06:00 05/02/19 14:20 Active Medications Heparin Sodium (Porcine) (Heparin -) 5,000 unit SQ TID MARYSE Pantoprazole Sodium 80 mg/ (Sodium Chloride) 100 mls @ 10 mls/hr IVPB Q10H MARYSE Stop: 05/03/19 16:46 Last Admin: 05/02/19 10:08 Dose: Not Given Piperacillin Sod/Tazobactam (Sod 3.375 gm/ Dextrose) 50 mls @ 100 mls/hr IVPB Q8H-IV MARYSE; Protocol Last Admin: 05/02/19 17:11 Dose: 100 mls/hr Fluconazole (Diflucan 200 Mg/Ns Premixed Ivpb -) 100 mls @ 100 mls/hr IVPB DAILY MARYSE Last Admin: 05/02/19 10:09 Dose: 100 mls/hr Norepinephrine Bitartrate 4, (000 mcg/ Dextrose) 500 mls @ 37.5 mls/hr IV TITR MARYSE; Protocol Last Admin: 05/01/19 21:13 Dose: Not Given Vasopressin 50 units/ Sodium (Chloride) 100 mls @ 4 mls/hr IVPB ASDIR MARYSE; Protocol Last Admin: 05/01/19 21:14 Dose: Not Given Fentanyl 500 mcg/ Dextrose 100 mls @ 5 mls/hr IVPB TITR MARYSE; Protocol Last Admin: 05/02/19 13:50 Dose: Not Given Propofol (Diprivan -) 1,000,000 mcg in 100 mls @ 6.222 mls/hr IVPB TITR [facility]; Protocol Last Admin: 05/02/19 13:46 Dose: 24.1 mcg/kg/min, 15 mls/hr Sodium Bicarbonate 75 meq/ (Dextrose/Sodium Chloride) 1,000 mls @ 100 mls/hr IV Q10H MARYSE Last Admin: 05/02/19 14:44 Dose: 100 mls/hr Insulin Aspart (Novolog Vial Sliding Scale -) 1 vial SQ TIDAC [facility]; Protocol Last Admin: 05/02/19 16:54 Dose: Not Given Mupirocin (Bactroban Ointment (For Decolonization) -) 1 applic NS BID [facility] Stop: 05/05/19 21:59 Last Admin: 05/02/19 13:50 Dose: Not Given Ondansetron HCl (Zofran Injection) 4 mg IVPUSH Q6H PRN PRN Reason: NAUSEA AND/OR VOMITING Sodium Bicarbonate (Sodium Bicarbonate 8.4% -) 50 meq IV ONCE ONE Stop: 04/30/19 18:34 ASSESSMENT/PLAN: Patient is a 64 year old male with PMH of MR, HTN, DM, b/l LE swelling who was BIBEMS for a 1 day h/o Hypotension (70/51), lethargy and tachycardia. Post-op admission to ICU intubated for HD monitoring. Neuro -Intubated and sedated on propofol Pulmonary -Intubated -Vent: 500, 14, 6, 60% -CXR(04/30/19): left lower half of chest w/ opacity -ABG(05/01/19): 7.25/24.5/114/10.3/97 -Weaning trials once stable Cardio -Hypotension --likely 2/2 septic shock -On levophed and vasopresin gtt, titrate down as tolerated -Incr IVF GI -Perforated duodenum --possibly 2/2 freq NSAID usage vs H pylori -Transamnitis --likely shocked liver -AST/ALT: 1911/1078 -Lactic Acid: 3.8, 6.1, 9.7 --> -S/p Ex-Lap w/ Jack Patch([place], 04/30/19) -NGT place surgically. per surgery NGT SHOULD NOT BE REMOVED OR MANIPULATED for 1 week -Protonix GTT -Abx regimen: -S/p flagyl in ED -Zosyn and fluconazole -If intra op cultures negative for yeast, ok to DC fluconazole per surgery Renal -Post-op ABG shows metabolic acidosis; patient had a lactic acidosis pre op -IVF PPX -Protonix gtt -Lovenox 40 sq for DVT prophy per surgery Dispo -ICU monitoring -We will continue to follow the patient. Thank you for this consultative opportunity. Visit type - Emergency Visit Emergency Visit: No - New Patient This patient is new to me today: Yes Date on this admission: 05/02/19 - Critical Care Critical Care patient: Yes Total Critical Care Time (in minutes): 45 Critical Care Statement: The care of this patient involved high complexity decision making to prevent further life threatening deterioration of the patient 's condition and/or to evaluate & treat vital organ system(s) failure or risk of failure. ATTENDING PHYSICIAN STATEMENT I saw and evaluated the patient. I reviewed the resident's note and discussed the case with the resident. I agree with the resident's findings and plan as documented. SUBJECTIVE: OBJECTIVE: ASSESSMENT AND PLAN:
[2019-05-02] MEDS: VASOPRESSIN 50 UNITS in SODIUM CHLORIDE 97.5 ML IVPB SCH (22:04)
[2019-05-02] MEDS ORDERED: fentaNYL CITRATE 250 MCG/5 ML VIAL ONE (22:14)
[2019-05-02] MEDS: HEPARIN NA (PORCINE) 5,000 UNITS/ML 1ML VIAL SQ SCH (22:15)
[2019-05-02] MEDS ORDERED: NOREPINEPHRINE BITARTRATE 4 MG/4 ML ML IV ONE (22:51)
[2019-05-02 22:58] LABS: HEMATOCRIT 29.4 % (35.4-49); HEMOGLOBIN 9.8 GM/dL (11.7-16.9); MCH 28.3 pg (25.7-33.7); MCHC 33.5 g/dl (32.0-35.9); MEAN CELL VOLUME 84.4 fl (80-96); MEAN PLT VOLUME 10.2 fl (7.5-11.1); RBC 3.48 M/mm3 (4.00-5.60)
[2019-05-02 23:02] LABS: PLATELET COUNT 89 K/MM3 (134-434); WHITE BLOOD COUNT 40.6 K/mm3 (4.0-10.0)
[2019-05-02 23:52] LABS: ALBUMIN 1.6 g/dl (3.4-5.0); BILIRUBIN,TOTAL 1.7 mg/dL (0.2-1); BLOOD UREA NITROGEN 46.3 mg/dL (7-18); CREATININE 3.2 mg/dL (0.55-1.3); POTASSIUM 5.7 mmol/L (3.5-5.1); TOT PROT 4.4 g/dl (6.4-8.2)
[2019-05-02 23:56] LABS: CALCIUM 6.9 mg/dL (8.5-10.1)
[2019-05-03] MEDS ORDERED: CALCIUM GLUCONATE 10% - 1,000 MG/10 ML VIAL IVPUSH ONE (00:34)
[2019-05-03] MEDS ORDERED: INSULIN REGULAR HUMAN 100 UNITS/ML *VIAL IVPUSH ONE (00:34)
[2019-05-03] MEDS ORDERED: CALCIUM GLUCONATE 10% - 1,000 MG/10 ML VIAL ONE (01:04)
[2019-05-03] MEDS: PANTOPRAZOLE SODIUM 80 MG in SODIUM CHLORIDE 100 ML IVPB SCH ×3 (01:11→15:06)
[2019-05-03] MEDS: NOREPINEPHRINE BITARTRATE 4,000 MCG in DEXTROSE 5%-WATER - 496 ML IV SCH ×2 (01:12→07:46)
[2019-05-03] MEDS: SODIUM BICARBONATE 8.4% - 75 MEQ in DEXTROSE 5%-0.45% SALINE 925 ML IV SCH ×4 (01:14→22:57)
[2019-05-03] MEDS: PIPERACILLIN/TAZOB 3.375 GM 3.375 GM in DEXTROSE 5%-WATER - 50 ML IVPB SCH ×3 (01:16→19:14)
[2019-05-03] MEDS: HEPARIN NA (PORCINE) 5,000 UNITS/ML 1ML VIAL SQ SCH ×3 (07:06→22:07)
[2019-05-03] MEDS: INSULIN SLIDING SCALE (NOVOLOG) 1 VIAL SQ SCH ×3 (07:26→16:51)
[2019-05-03] MEDS: PROPOFOL 1,000,000 MCG/100 ML VIAL IVPB SCH ×2 (07:33→15:03)
[2019-05-03 07:43] LABS: BASO % 0.2 % (0-2.0); EOS % 0.3 % (0-4.5); HEMATOCRIT 29.6 % (35.4-49); HEMOGLOBIN 9.6 GM/dL (11.7-16.9); LYMPH % 4.1 % (8-40); MCH 27.7 pg (25.7-33.7); MCHC 32.3 g/dl (32.0-35.9); MEAN CELL VOLUME 85.7 fl (80-96); MEAN PLT VOLUME 10.4 fl (7.5-11.1); MONO % 4.6 % (3.8-10.2); NEUT % 90.8 % (42.8-82.8); PLATELET COUNT 77 K/MM3 (134-434); RBC 3.45 M/mm3 (4.00-5.60); RDW 15.1 % (11.9-15.9); WHITE BLOOD COUNT 39.6 K/mm3 (4.0-10.0)
[2019-05-03 08:18] LABS: ALBUMIN 1.6 g/dl (3.4-5.0); BILIRUBIN,TOTAL 1.8 mg/dL (0.2-1); BLOOD UREA NITROGEN 48.3 mg/dL (7-18); CREATININE 3.6 mg/dL (0.55-1.3); MAGNESIUM 1.7 mg/dL (1.8-2.4); PHOSPHOROUS 5.6 mg/dL (2.5-4.9); POTASSIUM 5.1 mmol/L (3.5-5.1); TOT PROT 4.2 g/dl (6.4-8.2)
[2019-05-03 08:23] LABS: CALCIUM 6.8 mg/dL (8.5-10.1)
--- NOTE | 2019-05-03 09:03 | PN ---
Progress Note (short form) - Note Progress Note: RENAL Pt has started to make some urine Last Vital Signs Temp Pulse Resp BP Pulse Ox 97.4 F L 76 14 94/64 100 05/03/19 04:00 05/03/19 06:00 05/03/19 06:00 05/03/19 06:00 05/02/19 08:11 Current Medications Generic Name Dose Route Start Last Admin Trade Name Freq PRN Reason Stop Dose Admin Heparin Sodium (Porcine) 5,000 unit 05/02/19 22:00 05/03/19 07:06 Heparin - SQ 5,000 unit TID MARYSE Administration Pantoprazole Sodium 80 mg/ 100 mls @ 10 mls/hr 04/30/19 16:45 05/03/19 01:11 Sodium Chloride IVPB 05/03/19 16:46 10 mls/hr Q10H MARYSE Administration 8 MG/HR Piperacillin Sod/Tazobactam 50 mls @ 100 mls/hr 04/30/19 18:00 05/03/19 01:16 Sod 3.375 gm/ Dextrose IVPB 100 mls/hr Q8H-IV MARYSE Administration Protocol Fluconazole 100 mls @ 100 mls/hr 04/30/19 18:00 05/02/19 10:09 Diflucan 200 Mg/Ns Premixed Ivpb - IVPB 100 mls/hr DAILY MARYSE Administration Norepinephrine Bitartrate 4, 500 mls @ 37.5 mls/hr 04/30/19 19:30 05/03/19 07 :46 000 mcg/ Dextrose IV 8 mcg/min TITR MARYSE 60 mls/hr Administration Protocol 5 MCG/MIN Vasopressin 50 units/ Sodium 100 mls @ 4 mls/hr 04/30/19 19:30 05/02/19 22:04 Chloride IVPB Not Given ASDIR MARYSE Protocol 2 UNITS/HR Fentanyl 500 mcg/ Dextrose 100 mls @ 5 mls/hr 05/01/19 12:15 05/02/19 13:50 IVPB Not Given TITR MARYSE Protocol 25 MCG/HR Propofol 1,000,000 mcg in 100 mls @ 6.222 mls/hr 05/02/19 12:00 05/03/19 07: 33 Diprivan - IVPB 15 mcg/kg/min TITR MARYSE 9.333 mls/hr Administration Protocol 10 MCG/KG/MIN Sodium Bicarbonate 75 meq/ 1,000 mls @ 100 mls/hr 05/02/19 13:00 05/03/19 07: 27 Dextrose/Sodium Chloride IV 50 mls/hr Q10H MARYSE Administration Sodium Chloride 1,000 mls @ 75 mls/hr 05/03/19 09:00 Normal Saline - IV ASDIR MARYSE Insulin Aspart 1 vial 05/01/19 07:00 05/03/19 07:26 Novolog Vial Sliding Scale - SQ 4 units TIDAC MARYSE Administration Protocol Mupirocin 1 applic 04/30/19 22:00 05/02/19 22:05 Bactroban Ointment (For Decolonization) - NS 05/05/19 21:59 1 applic BID MARYSE Administration Ondansetron HCl 4 mg 04/30/19 16:45 Zofran Injection IVPUSH Q6H PRN NAUSEA AND/OR VOMITING ett in place lungs bilat air entry cvs s1s2 rr abd soft, curgical wound CDI ext +edema neuro sedated CBC, BMP 05/03/19 06:00 05/03/19 06:00 IMPRESSION Oliguric DOMENIC probably from sepstic shock from perforated duodenal ulcer fluid overload MR DM possible ckd transamitis and mild icterus- improved, possible ischemic hepatopathy hyperkalemia better, received hyponatremia likely dilutional PLAN would give fluids and lasix in an effort to get him to urinate thus dropping his k may need hd if k not coming down since he can not have his GI tract used continue pressors with goal of map above 70 GI eval of lft's ?sonogram of abd obtain CK ccm will giive fluids given low cvp MV
[2019-05-03] MEDS ORDERED: FUROSEMIDE 40 MG/4 ML INJECTABLE VIAL IVPUSH ONE (09:05)
[2019-05-03] MEDS: FLUCONAZOLE 200 MG/NS 100 ML IVPB SCH (09:37)
[2019-05-03 09:50] LABS: ANISOCYTOSIS 0; MACROCYTOSIS 0; PLATELET ESTIMATE DECREASED
[2019-05-03] MEDS: SODIUM CHLORIDE 1,000 ML IV SCH ×2 (10:11→22:06)
[2019-05-03] MEDS ORDERED: PIPERACILLIN/TAZOBACTAM 3.375 GM VIAL IVPB ONE (10:26)
[2019-05-03] MEDS ORDERED: DEXTROSE 5%-WATER - 50 ML IVPB ONE (10:26)
--- NOTE | 2019-05-03 10:31 | PN ---
Teaching Attending Note Name of Resident: Karla Billingsley ATTENDING PHYSICIAN STATEMENT I saw and evaluated the patient. I reviewed the resident's note and discussed the case with the resident. I agree with the resident's findings and plan as documented. SUBJECTIVE: Patient seen and examined in the ICU. Intubated and sedated, AC Mode of vent. Remains on 5 mcq NE for hemodynamic support. Intake & Output 04/30/19 05/01/19 05/02/19 05/03/19 23:59 23:59 23:59 23:59 Intake Total 7650 1585 3084 1173 Output Total 1115 1550 330 390 Balance 6535 35 2754 783 Weight 197 lb 197 lb 228 lb 9.91 oz 237 lb Last Vital Signs Temp Pulse Resp BP Pulse Ox 97.4 F L 76 14 94/64 100 05/03/19 04:00 05/03/19 06:00 05/03/19 06:00 05/03/19 06:00 05/02/19 08:11 Active Medications Heparin Sodium (Porcine) (Heparin -) 5,000 unit SQ TID MARYSE Last Admin: 05/03/19 07:06 Dose: 5,000 unit Pantoprazole Sodium 80 mg/ (Sodium Chloride) 100 mls @ 10 mls/hr IVPB Q10H MARYSE Stop: 05/03/19 16:46 Last Admin: 05/03/19 01:11 Dose: 10 mls/hr Piperacillin Sod/Tazobactam (Sod 3.375 gm/ Dextrose) 50 mls @ 100 mls/hr IVPB Q8H-IV MARYSE; Protocol Last Admin: 05/03/19 01:16 Dose: 100 mls/hr Fluconazole (Diflucan 200 Mg/Ns Premixed Ivpb -) 100 mls @ 100 mls/hr IVPB DAILY MARYSE Last Admin: 05/03/19 09:37 Dose: 100 mls/hr Norepinephrine Bitartrate 4, (000 mcg/ Dextrose) 500 mls @ 37.5 mls/hr IV TITR MARYSE; Protocol Last Admin: 05/03/19 07:46 Dose: 8 mcg/min, 60 mls/hr Vasopressin 50 units/ Sodium (Chloride) 100 mls @ 4 mls/hr IVPB ASDIR MARYSE; Protocol Last Admin: 05/02/19 22:04 Dose: Not Given Fentanyl 500 mcg/ Dextrose 100 mls @ 5 mls/hr IVPB TITR [facility]; Protocol Last Titration: 05/03/19 07:00 Dose: 25 mcg/hr, 5 mls/hr Propofol (Diprivan -) 1,000,000 mcg in 100 mls @ 6.222 mls/hr IVPB TITR [facility]; Protocol Last Admin: 05/03/19 07:33 Dose: 15 mcg/kg/min, 9.333 mls/hr Sodium Bicarbonate 75 meq/ (Dextrose/Sodium Chloride) 1,000 mls @ 100 mls/hr IV Q10H [facility] Last Admin: 05/03/19 09:33 Dose: 100 mls/hr Sodium Chloride (Normal Saline -) 1,000 mls @ 75 mls/hr IV ASDIR [facility] Last Admin: 05/03/19 10:11 Dose: 75 mls/hr Insulin Aspart (Novolog Vial Sliding Scale -) 1 vial SQ TIDAC [facility]; Protocol Last Admin: 05/03/19 07:26 Dose: 4 units Mupirocin (Bactroban Ointment (For Decolonization) -) 1 applic NS BID [facility] Stop: 05/05/19 21:59 Last Admin: 05/02/19 22:05 Dose: 1 applic Ondansetron HCl (Zofran Injection) 4 mg IVPUSH Q6H PRN PRN Reason: NAUSEA AND/OR VOMITING GENERAL: Intubated and sedated. EYES: Pupils equal, round and sluggishly reactive to light. LUNGS: Breath sounds equal, clear to auscultation bilaterally. No wheezes, and no crackles. No accessory muscle use. HEART: Regular rate and rhythm, normal S1 and S2 without murmur, rub or gallop. ABDOMEN: Soft, mildly distended, surgical dressing intact, hypoactive BS, (+) intact ASHLEY drain. LOWER EXTREMITIES: 2+ pulses, warm, well-perfused. No calf tenderness. No peripheral edema. NEUROLOGICAL: sedated. Laboratory Results - last 24 hr 05/02/19 05/02/19 05/02/19 11:10 14:20 16:24 WBC RBC Hgb Hct MCV MCH MCHC RDW Plt Count MPV Absolute Neuts (auto) Neutrophils % Neutrophils % (Manual) Band Neutrophils % Lymphocytes % Lymphocytes % (Manual) Monocytes % Monocytes % (Manual) Eosinophils % Eosinophils % (Manual) Basophils % Basophils % (Manual) Myelocytes % (Man) Promyelocytes % (Man) Blast Cells % (Manual) Nucleated RBC % Metamyelocytes Hypochromia Platelet Estimate Polychromasia Poikilocytosis Anisocytosis Microcytosis Macrocytosis Sodium 128 L Potassium 5.8 H Chloride 100 Carbon Dioxide 15 L Anion Gap 13 BUN 42.0 H Creatinine 3.0 H Est GFR (CKD-EPI)AfAm 24.32 Est GFR (CKD-EPI)NonAf 20.98 POC Glucometer 160 202 Random Glucose 212 H Calcium 6.7 L* Phosphorus Magnesium Total Bilirubin 1.4 H AST 2863 H ALT 2739 H Alkaline Phosphatase 66 Total Protein 4.5 L Albumin 1.9 L 05/02/19 05/02/19 05/03/19 22:50 22:50 06:00 WBC 40.6 H* 39.6 H* RBC 3.48 L 3.45 L Hgb 9.8 L 9.6 L Hct 29.4 L 29.6 L MCV 84.4 85.7 MCH 28.3 27.7 MCHC 33.5 32.3 RDW 15.0 15.1 Plt Count 89 L 77 L MPV 10.2 10.4 Absolute Neuts (auto) 36.0 H Neutrophils % 90.8 H Neutrophils % (Manual) 71.3 D Band Neutrophils % 21.8 Lymphocytes % 4.1 L Lymphocytes % (Manual) 2.0 L D Monocytes % 4.6 Monocytes % (Manual) 3 L Eosinophils % 0.3 Eosinophils % (Manual) 0.0 Basophils % 0.2 Basophils % (Manual) 0.0 Myelocytes % (Man) 0 D Promyelocytes % (Man) 0 Blast Cells % (Manual) 0 Nucleated RBC % 0 Metamyelocytes 2 D Hypochromia 0 Platelet Estimate Decreased Polychromasia 0 Poikilocytosis 0 Anisocytosis 0 Microcytosis 0 Macrocytosis 0 Sodium 126 L Potassium 5.7 H Chloride 98 Carbon Dioxide 16 L Anion Gap 13 BUN 46.3 H Creatinine 3.2 H Est GFR (CKD-EPI)AfAm 22.49 Est GFR (CKD-EPI)NonAf 19.41 POC Glucometer Random Glucose 342 H Calcium 6.9 L* Phosphorus Magnesium Total Bilirubin 1.7 H AST 1836 H ALT 2290 H Alkaline Phosphatase 76 Total Protein 4.4 L Albumin 1.6 L 05/03/19 05/03/19 06:00 06:14 WBC RBC Hgb Hct MCV MCH MCHC RDW Plt Count MPV Absolute Neuts (auto) Neutrophils % Neutrophils % (Manual) Band Neutrophils % Lymphocytes % Lymphocytes % (Manual) Monocytes % Monocytes % (Manual) Eosinophils % Eosinophils % (Manual) Basophils % Basophils % (Manual) Myelocytes % (Man) Promyelocytes % (Man) Blast Cells % (Manual) Nucleated RBC % Metamyelocytes Hypochromia Platelet Estimate Polychromasia Poikilocytosis Anisocytosis Microcytosis Macrocytosis Sodium 125 L Potassium 5.1 Chloride 95 L Carbon Dioxide 17 L Anion Gap 13 BUN 48.3 H Creatinine 3.6 H Est GFR (CKD-EPI)AfAm 19.51 Est GFR (CKD-EPI)NonAf 16.83 POC Glucometer 284 Random Glucose 349 H Calcium 6.8 L* Phosphorus 5.6 H Magnesium 1.7 L Total Bilirubin 1.8 H AST 1428 H ALT 1985 H Alkaline Phosphatase 87 Total Protein 4.2 L Albumin 1.6 L ASSESSMENT/PLAN: POD #3: exploratory laparotomy, rohan patch repair perforated duodenal ulcer, lavage, retro-rectus block Septic Shock due to 2 cm perforated Duodenal ulcer Acute Respiratory Failure MR by history HTN DM DOMENIC AC Mode of vent Monitor K+ level: Per Renal Lasix today to lower K+ Add NS @ 75 cc/hr and follow CVP to guide IVF resuscitation ABX Per ID VTE prophylaxis NGT in place Pressors to maintain MAP > 65 Strict I & O PPI Follow cultures Requires continued ICU monitoring Dr Desai Critical care time spent in reviewing chart, evaluating patient and formulating plan - 36 minutes.
[2019-05-03] MEDS: MUPIROCIN 2% TOPICAL OINTMENT FOR DECOLONIZATION NS SCH ×2 (10:34→22:57)
--- NOTE | 2019-05-03 11:17 | PN ---
Physical Exam: SUBJECTIVE: Patient seen and examined No overnight events. Decreased UOP and elevating Cr OBJECTIVE: Vital Signs Period Temp Pulse Resp BP Sys/Booth Pulse Ox Last 24 Hr 97.4 F 70-82 13-16 81-105/53-66 GENERAL: Intubaed and sedated HEAD: Normal with no signs of trauma. EYES: PERRL, extraocular movements intact, sclera anicteric, conjunctiva clear. No ptosis. ENT: Ears normal, nares patent, oropharynx clear without exudates, moist mucous membranes. NGT ~60cm at nares NECK: Trachea midline, full range of motion, supple. LUNGS: Coarse breath sounds equal, clear to auscultation bilaterally, no wheezes , no crackles, no accessory muscle use. HEART: Regular rate and rhythm, S1, S2 without murmur, rub or gallop. ABDOMEN: Soft, nontender, nondistended, hypoactive bowel sounds, surgical dressings overlying mid abd. ASHLEY with SS drainage EXTREMITIES: 2+ pulses, warm, well-perfused, non-pitting edema. NEUROLOGICAL: Sedated. SKIN: Warm, dry, normal turgor, no rashes or lesions noted Laboratory Results - last 24 hr 05/02/19 05/02/19 05/02/19 14:20 16:24 22:50 WBC 40.6 H* RBC 3.48 L Hgb 9.8 L Hct 29.4 L MCV 84.4 MCH 28.3 MCHC 33.5 RDW 15.0 Plt Count 89 L MPV 10.2 Absolute Neuts (auto) Neutrophils % Neutrophils % (Manual) Band Neutrophils % Lymphocytes % Lymphocytes % (Manual) Monocytes % Monocytes % (Manual) Eosinophils % Eosinophils % (Manual) Basophils % Basophils % (Manual) Myelocytes % (Man) Promyelocytes % (Man) Blast Cells % (Manual) Nucleated RBC % Metamyelocytes Hypochromia Platelet Estimate Polychromasia Poikilocytosis Anisocytosis Microcytosis Macrocytosis Sodium 128 L Potassium 5.8 H Chloride 100 Carbon Dioxide 15 L Anion Gap 13 BUN 42.0 H Creatinine 3.0 H Est GFR (CKD-EPI)AfAm 24.32 Est GFR (CKD-EPI)NonAf 20.98 POC Glucometer 202 Random Glucose 212 H Calcium 6.7 L* Phosphorus Magnesium Total Bilirubin 1.4 H AST 2863 H ALT 2739 H Alkaline Phosphatase 66 Total Protein 4.5 L Albumin 1.9 L 05/02/19 05/03/19 05/03/19 22:50 06:00 06:00 WBC 39.6 H* RBC 3.45 L Hgb 9.6 L Hct 29.6 L MCV 85.7 MCH 27.7 MCHC 32.3 RDW 15.1 Plt Count 77 L MPV 10.4 Absolute Neuts (auto) 36.0 H Neutrophils % 90.8 H Neutrophils % (Manual) 71.3 D Band Neutrophils % 21.8 Lymphocytes % 4.1 L Lymphocytes % (Manual) 2.0 L D Monocytes % 4.6 Monocytes % (Manual) 3 L Eosinophils % 0.3 Eosinophils % (Manual) 0.0 Basophils % 0.2 Basophils % (Manual) 0.0 Myelocytes % (Man) 0 D Promyelocytes % (Man) 0 Blast Cells % (Manual) 0 Nucleated RBC % 0 Metamyelocytes 2 D Hypochromia 0 Platelet Estimate Decreased Polychromasia 0 Poikilocytosis 0 Anisocytosis 0 Microcytosis 0 Macrocytosis 0 Sodium 126 L 125 L Potassium 5.7 H 5.1 Chloride 98 95 L Carbon Dioxide 16 L 17 L Anion Gap 13 13 BUN 46.3 H 48.3 H Creatinine 3.2 H 3.6 H Est GFR (CKD-EPI)AfAm 22.49 19.51 Est GFR (CKD-EPI)NonAf 19.41 16.83 POC Glucometer Random Glucose 342 H 349 H Calcium 6.9 L* 6.8 L* Phosphorus 5.6 H Magnesium 1.7 L Total Bilirubin 1.7 H 1.8 H AST 1836 H 1428 H ALT 2290 H 1985 H Alkaline Phosphatase 76 87 Total Protein 4.4 L 4.2 L Albumin 1.6 L 1.6 L 05/03/19 06:14 WBC RBC Hgb Hct MCV MCH MCHC RDW Plt Count MPV Absolute Neuts (auto) Neutrophils % Neutrophils % (Manual) Band Neutrophils % Lymphocytes % Lymphocytes % (Manual) Monocytes % Monocytes % (Manual) Eosinophils % Eosinophils % (Manual) Basophils % Basophils % (Manual) Myelocytes % (Man) Promyelocytes % (Man) Blast Cells % (Manual) Nucleated RBC % Metamyelocytes Hypochromia Platelet Estimate Polychromasia Poikilocytosis Anisocytosis Microcytosis Macrocytosis Sodium Potassium Chloride Carbon Dioxide Anion Gap BUN Creatinine Est GFR (CKD-EPI)AfAm Est GFR (CKD-EPI)NonAf POC Glucometer 284 Random Glucose Calcium Phosphorus Magnesium Total Bilirubin AST ALT Alkaline Phosphatase Total Protein Albumin Active Medications Generic Name Dose Route Start Last Admin Trade Name Freq PRN Reason Stop Dose Admin Heparin Sodium (Porcine) 5,000 unit 05/02/19 22:00 05/03/19 07:06 Heparin - SQ 5,000 unit TID MARYSE Administration Pantoprazole Sodium 80 mg/ 100 mls @ 10 mls/hr 04/30/19 16:45 05/03/19 01:11 Sodium Chloride IVPB 05/03/19 16:46 10 mls/hr Q10H MARYSE Administration 8 MG/HR Piperacillin Sod/Tazobactam 50 mls @ 100 mls/hr 04/30/19 18:00 05/03/19 10:34 Sod 3.375 gm/ Dextrose IVPB 100 mls/hr Q8H-IV MARYSE Administration Protocol Fluconazole 100 mls @ 100 mls/hr 04/30/19 18:00 05/03/19 09:37 Diflucan 200 Mg/Ns Premixed Ivpb - IVPB 100 mls/hr DAILY MARYSE Administration Norepinephrine Bitartrate 4, 500 mls @ 37.5 mls/hr 04/30/19 19:30 05/03/19 07 :46 000 mcg/ Dextrose IV 8 mcg/min TITR MARYSE 60 mls/hr Administration Protocol 5 MCG/MIN Vasopressin 50 units/ Sodium 100 mls @ 4 mls/hr 04/30/19 19:30 05/02/19 22:04 Chloride IVPB Not Given ASDIR MARYSE Protocol 2 UNITS/HR Fentanyl 500 mcg/ Dextrose 100 mls @ 5 mls/hr 05/01/19 12:15 05/03/19 07:00 IVPB 25 mcg/hr TITR MARYSE 5 mls/hr Titration Protocol 25 MCG/HR Propofol 1,000,000 mcg in 100 mls @ 6.222 mls/hr 05/02/19 12:00 05/03/19 07: 33 Diprivan - IVPB 15 mcg/kg/min TITR MARYSE 9.333 mls/hr Administration Protocol 10 MCG/KG/MIN Sodium Bicarbonate 75 meq/ 1,000 mls @ 100 mls/hr 05/02/19 13:00 05/03/19 09: 33 Dextrose/Sodium Chloride IV 100 mls/hr Q10H MARYSE Administration Sodium Chloride 1,000 mls @ 75 mls/hr 05/03/19 09:00 05/03/19 10:11 Normal Saline - IV 75 mls/hr ASDIR MARYSE Administration Insulin Aspart 1 vial 05/01/19 07:00 05/03/19 07:26 Novolog Vial Sliding Scale - SQ 4 units TIDAC MARYSE Administration Protocol Mupirocin 1 applic 04/30/19 22:00 05/03/19 10:34 Bactroban Ointment (For Decolonization) - NS 05/05/19 21:59 1 applic BID MARYSE Administration Ondansetron HCl 4 mg 04/30/19 16:45 Zofran Injection IVPUSH Q6H PRN NAUSEA AND/OR VOMITING ASSESSMENT/PLAN: Patient is a 64 year old male with PMH of MR, HTN, DM, b/l LE swelling who was BIBEMS for a 1 day h/o Hypotension (70/51), lethargy and tachycardia, found to have free air under the diaphragm s/p omental patch for duodenal perforation POD3. Post-op admission to ICU intubated for HD monitoring. Neuro -Intubated and sedated on propofol; will maintain sedation Pulmonary -Intubated -Vent: 500, 14, 6, 60% -CXR(04/30/19): left lower half of chest w/ opacity -ABG(05/01/19): 7.25/24.5/114/10.3/97 -Weaning trials once stable Cardio -Hypotension --likely 2/2 septic shock -On levophed and vasopresin gtt, titrate down as tolerated -IVF NS 75cc/hr for hypoNa and resus -CVP goal 12 GI -Perforated duodenum --possibly 2/2 freq NSAID usage vs H pylori -Transamnitis --likely shocked liver -AST/ALT: 1911/1078 -Lactic Acid: 3.8, 6.1, 9.7 -S/p Ex-Lap w/ Jack Patch([place], 04/30/19) -NGT place surgically. per surgery NGT SHOULD NOT BE REMOVED OR MANIPULATED for 1 week -Protonix GTT -Abx regimen: -S/p flagyl in ED -Zosyn and fluconazole -If intra op cultures negative for yeast, ok to DC fluconazole per surgery Renal -Post-op ABG shows metabolic acidosis; patient had a lactic acidosis pre op -IVF 75cc/hr -lasix 40iv today per renal PPX -Protonix gtt -Lovenox 40 sq for DVT prophy per surgery Dispo -ICU monitoring; will consider weaning later this week Visit type - Emergency Visit Emergency Visit: No - New Patient This patient is new to me today: No - Critical Care Critical Care patient: Yes Total Critical Care Time (in minutes): 40 Critical Care Statement: The care of this patient involved high complexity decision making to prevent further life threatening deterioration of the patient 's condition and/or to evaluate & treat vital organ system(s) failure or risk of failure. ATTENDING PHYSICIAN STATEMENT I saw and evaluated the patient. I reviewed the resident's note and discussed the case with the resident. I agree with the resident's findings and plan as documented. SUBJECTIVE: OBJECTIVE: ASSESSMENT AND PLAN:
--- NOTE | 2019-05-03 11:57 | PN ---
Progress Note, Physician History of Present Illness: SEDATED ON VENTILATOR HYPOTENSIVE ON PRESSORS AFEBRILE WBC MARKEDLY ELEVATED , DECREASED PLT C/S NO GROWTH - Current Medication List Current Medications: Active Medications Heparin Sodium (Porcine) (Heparin -) 5,000 unit SQ TID MARYSE Last Admin: 05/03/19 07:06 Dose: 5,000 unit Pantoprazole Sodium 80 mg/ (Sodium Chloride) 100 mls @ 10 mls/hr IVPB Q10H MARYSE Stop: 05/03/19 16:46 Last Admin: 05/03/19 01:11 Dose: 10 mls/hr Piperacillin Sod/Tazobactam (Sod 3.375 gm/ Dextrose) 50 mls @ 100 mls/hr IVPB Q8H-IV MARYSE; Protocol Last Admin: 05/03/19 10:34 Dose: 100 mls/hr Fluconazole (Diflucan 200 Mg/Ns Premixed Ivpb -) 100 mls @ 100 mls/hr IVPB DAILY MARYSE Last Admin: 05/03/19 09:37 Dose: 100 mls/hr Norepinephrine Bitartrate 4, (000 mcg/ Dextrose) 500 mls @ 37.5 mls/hr IV TITR MARYSE; Protocol Last Admin: 05/03/19 07:46 Dose: 8 mcg/min, 60 mls/hr Vasopressin 50 units/ Sodium (Chloride) 100 mls @ 4 mls/hr IVPB ASDIR MARYSE; Protocol Last Admin: 05/02/19 22:04 Dose: Not Given Fentanyl 500 mcg/ Dextrose 100 mls @ 5 mls/hr IVPB TITR MARYSE; Protocol Last Titration: 05/03/19 07:00 Dose: 25 mcg/hr, 5 mls/hr Propofol (Diprivan -) 1,000,000 mcg in 100 mls @ 6.222 mls/hr IVPB TITR MARYSE; Protocol Last Admin: 05/03/19 07:33 Dose: 15 mcg/kg/min, 9.333 mls/hr Sodium Bicarbonate 75 meq/ (Dextrose/Sodium Chloride) 1,000 mls @ 100 mls/hr IV Q10H MARYSE Last Admin: 05/03/19 09:33 Dose: 100 mls/hr Sodium Chloride (Normal Saline -) 1,000 mls @ 75 mls/hr IV ASDIR MARYSE Last Admin: 05/03/19 10:11 Dose: 75 mls/hr Insulin Aspart (Novolog Vial Sliding Scale -) 1 vial SQ TIDAC [facility]; Protocol Last Admin: 05/03/19 07:26 Dose: 4 units Mupirocin (Bactroban Ointment (For Decolonization) -) 1 applic NS BID MARYSE Stop: 05/05/19 21:59 Last Admin: 05/03/19 10:34 Dose: 1 applic Ondansetron HCl (Zofran Injection) 4 mg IVPUSH Q6H PRN PRN Reason: NAUSEA AND/OR VOMITING - Objective Vital Signs: Vital Signs Temperature 97.4 F L 05/03/19 04:00 Pulse Rate 76 05/03/19 06:00 Respiratory Rate 14 05/03/19 09:10 Blood Pressure 94/64 05/03/19 06:00 O2 Sat by Pulse Oximetry (%) 100 05/02/19 08:11 Constitutional: Yes: No Distress Eyes: Yes: Conjunctiva Clear Cardiovascular: Yes: Regular Rate and Rhythm, S1, S2 Respiratory: Yes: CTA Bilaterally, Mechanically Ventilated Gastrointestinal: Yes: Normal Bowel Sounds, Soft. No: Tenderness Edema: Yes Labs: CBC, BMP 05/03/19 06:00 05/03/19 06:00 INR, PTT INR 1.34 (0.83-1.09) H 04/30/19 17:30 Assessment/Plan S/P PERFORATED PEPTIC ULCER SEPSIS/SEPTIC SHOCK LEUKOCYTOSIS THROMBOCYTOPENIA DOMENIC SHOCK LIVER LACTIC ACIDOSIS CONTINUE VENTILATORY/ HEMODYNAMIC SUPPORT MONITOR PLT COUNT EMPIRIC ZOSYN/ FLUCONAZOLE
[2019-05-03] MEDS: FENTANYL INJECTION 500 MCG in DEXTROSE 5%-WATER - 90 ML IVPB SCH (16:51)
[2019-05-03] MEDS ORDERED: MAGNESIUM SULF 50% (8.12 MEQ/2 ML-1 GM VIAL) IVPB ONE (17:40)
--- NOTE | 2019-05-03 17:44 | PN ---
Progress Note, Physician History of Present Illness: seen and examined at bedside in ICU. Remains intubated and sedated. on pressor norepinephrine and off vasopressin, propofol, protonix gtt. Given 40mg of lasix per nephrology. - Current Medication List Current Medications: Active Medications Heparin Sodium (Porcine) (Heparin -) 5,000 unit SQ TID MARYSE Last Admin: 05/03/19 15:03 Dose: 5,000 unit Piperacillin Sod/Tazobactam (Sod 3.375 gm/ Dextrose) 50 mls @ 100 mls/hr IVPB Q8H-IV MARYSE; Protocol Last Admin: 05/03/19 10:34 Dose: 100 mls/hr Fluconazole (Diflucan 200 Mg/Ns Premixed Ivpb -) 100 mls @ 100 mls/hr IVPB DAILY MARYSE Last Admin: 05/03/19 09:37 Dose: 100 mls/hr Norepinephrine Bitartrate 4, (000 mcg/ Dextrose) 500 mls @ 37.5 mls/hr IV TITR MARYSE; Protocol Last Admin: 05/03/19 07:46 Dose: 8 mcg/min, 60 mls/hr Vasopressin 50 units/ Sodium (Chloride) 100 mls @ 4 mls/hr IVPB ASDIR MARYSE; Protocol Last Admin: 05/02/19 22:04 Dose: Not Given Fentanyl 500 mcg/ Dextrose 100 mls @ 5 mls/hr IVPB TITR MARYSE; Protocol Last Admin: 05/03/19 16:51 Dose: Not Given Propofol (Diprivan -) 1,000,000 mcg in 100 mls @ 6.222 mls/hr IVPB TITR MARYSE; Protocol Last Admin: 05/03/19 15:03 Dose: 15 mcg/kg/min, 9.333 mls/hr Sodium Bicarbonate 75 meq/ (Dextrose/Sodium Chloride) 1,000 mls @ 100 mls/hr IV Q10H MARYSE Last Admin: 05/03/19 09:33 Dose: 100 mls/hr Sodium Chloride (Normal Saline -) 1,000 mls @ 75 mls/hr IV ASDIR MARYSE Last Admin: 05/03/19 10:11 Dose: 75 mls/hr Insulin Aspart (Novolog Vial Sliding Scale -) 1 vial SQ TIDAC MARYSE; Protocol Last Admin: 05/03/19 16:51 Dose: 6 units Mupirocin (Bactroban Ointment (For Decolonization) -) 1 applic NS BID MARYSE Stop: 05/05/19 21:59 Last Admin: 05/03/19 10:34 Dose: 1 applic Ondansetron HCl (Zofran Injection) 4 mg IVPUSH Q6H PRN PRN Reason: NAUSEA AND/OR VOMITING - Objective Vital Signs: Vital Signs Temperature 96.4 F L 05/03/19 16:00 Pulse Rate 79 05/03/19 16:00 Respiratory Rate 15 05/03/19 16:00 Blood Pressure 102/65 05/03/19 16:00 O2 Sat by Pulse Oximetry (%) 100 05/02/19 08:11 Constitutional: Yes: Other (intubated and sedated) Eyes: Yes: Other (edematous. Pin point pupils) Neck: Yes: Supple Cardiovascular: Yes: Regular Rate and Rhythm Respiratory: Yes: Intubated, Mechanically Ventilated Gastrointestinal: Yes: Soft, Abdomen, Obese, Other (no grimacing but sedated) Genitourinary: Yes: Oliguria (minimal urine output. about 200ml for the shift per RN) Edema: Yes (anasarca) Wound/Incision: Yes: Dressing Dry and Intact Neurological: Yes: Other (intubated and sedated) Labs: CBC, BMP 05/03/19 06:00 05/03/19 06:00 INR, PTT INR 1.34 (0.83-1.09) H 04/30/19 17:30 Impression/Plan Impression/Plan: 64yo M [facility] MR, HTN, DM sent from [place] and found to be in septic shock from perforated duodenal ulcer s/p jack patch repair septic shock due to perforated duodenal ulcer- s/p exalp with Jack patch repain, lavage and retro-rectus block. ASHLEY drain in place. on levo 14mcg to maintain MAP >65. on zosyn and fluconazole. surgery and ID on board Acute hypoxic respiratory failure due to septic shock. requiring high vent support. titrate down as tolerated. further vent management per ICU team DOMENIC- due to septic shock and acidemia. started on bicarb ggt. lasix given per nephro Shock liver-mantian pressure with levophed improving hypomagnesemia and hypocalcemia replete and recheck hyperkalemia resolved with treatment oligouria about 200ml of urine for whole shift so far despite lasix (10 hours at this point) GI/DVT ppx protonix gtt/hep sq full code prognosis guarded Visit type - Emergency Visit Emergency Visit: Yes ED Registration Date: 04/30/19 Care time: The patient presented to the Emergency Department on the above date and was hospitalized for further evaluation of their emergent condition. - New Patient This patient is new to me today: Yes Date on this admission: 05/03/19 - Critical Care Critical Care patient: Yes Total Critical Care Time (in minutes): 37 Critical Care Statement: The care of this patient involved high complexity decision making to prevent further life threatening deterioration of the patient 's condition and/or to evaluate & treat vital organ system(s) failure or risk of failure.
[2019-05-03] MEDS: VASOPRESSIN 50 UNITS in SODIUM CHLORIDE 97.5 ML IVPB SCH (22:07)
[2019-05-04] MEDS ORDERED: PIPERACILLIN/TAZOBACTAM 3.375 GM VIAL IVPB ONE ×3 (00:48→17:22)
[2019-05-04] MEDS ORDERED: DEXTROSE 5%-WATER - 50 ML IVPB ONE ×3 (00:48→17:22)
[2019-05-04] MEDS: PIPERACILLIN/TAZOB 3.375 GM 3.375 GM in DEXTROSE 5%-WATER - 50 ML IVPB SCH ×3 (01:03→17:28)
[2019-05-04] MEDS: NOREPINEPHRINE BITARTRATE 4,000 MCG in DEXTROSE 5%-WATER - 496 ML IV SCH ×3 (01:03→21:38)
[2019-05-04] MEDS: SODIUM BICARBONATE 8.4% - 75 MEQ in DEXTROSE 5%-0.45% SALINE 925 ML IV SCH ×2 (02:40→05:52)
[2019-05-04] MEDS: HEPARIN NA (PORCINE) 5,000 UNITS/ML 1ML VIAL SQ SCH ×3 (06:17→21:28)
[2019-05-04] MEDS: PANTOPRAZOLE SODIUM 80 MG in SODIUM CHLORIDE 100 ML IVPB SCH ×2 (06:18→15:32)
[2019-05-04] MEDS: INSULIN SLIDING SCALE (NOVOLOG) 1 VIAL SQ SCH ×3 (06:18→17:27)
[2019-05-04 06:49] LABS: ALBUMIN 1.4 g/dl (3.4-5.0); BILIRUBIN,TOTAL 2.8 mg/dL (0.2-1); BLOOD UREA NITROGEN 53.6 mg/dL (7-18); CREATININE 4.1 mg/dL (0.55-1.3); MAGNESIUM 1.8 mg/dL (1.8-2.4); PHOSPHOROUS 4.5 mg/dL (2.5-4.9); POTASSIUM 4.4 mmol/L (3.5-5.1); TOT PROT 3.9 g/dl (6.4-8.2)
[2019-05-04 06:50] LABS: BASO % 0.3 % (0-2.0); EOS % 0.5 % (0-4.5); HEMATOCRIT 28.3 % (35.4-49); HEMOGLOBIN 9.5 GM/dL (11.7-16.9); LYMPH % 6.6 % (8-40); MCH 28.2 pg (25.7-33.7); MCHC 33.6 g/dl (32.0-35.9); MEAN CELL VOLUME 83.7 fl (80-96); MEAN PLT VOLUME 10.9 fl (7.5-11.1); MONO % 10.5 % (3.8-10.2); NEUT % 82.1 % (42.8-82.8); PLATELET COUNT 76 K/MM3 (134-434); RBC 3.38 M/mm3 (4.00-5.60); RDW 14.9 % (11.9-15.9)
[2019-05-04 07:06] LABS: WHITE BLOOD COUNT 31.1 K/mm3 (4.0-10.0)
[2019-05-04 07:09] LABS: CALCIUM 6.7 mg/dL (8.5-10.1)
--- NOTE | 2019-05-04 07:34 | PN ---
Physical Exam: SUBJECTIVE: Patient seen and examined at bed side in ICU , intubated sedated on mechanical ventilation and pressors levofedd OBJECTIVE: Vital Signs Period Temp Pulse Resp BP Sys/Booth Pulse Ox Last 24 Hr 96.4 F-97.9 F 73-83 14-18 87-112/54-65 100 GENERAL: Intubated and sedated. demarco in place , surgey wound cover by Gauze , EYES: Pupils equal, round and sluggishly reactive to light. LUNGS: decrease breath sound at the bases HEART: Regular rate and rhythm, normal S1 and S2 without murmur, rub or gallop. ABDOMEN: Soft, not distended, surgical dressing intact. seracenous drainage LOWER EXTREMITIES: 2+ pulses, warm, well-perfused. No calf tenderness. +1 peripheral edema. NEUROLOGICAL: intubated sedated , PEPRLA swollen scrotum Laboratory Results - last 24 hr 04/30/19 05/03/19 05/03/19 09:00 06:00 06:00 WBC 39.6 H* RBC 3.45 L Hgb 9.6 L Hct 29.6 L MCV 85.7 MCH 27.7 MCHC 32.3 RDW 15.1 Plt Count 77 L MPV 10.4 Absolute Neuts (auto) 36.0 H Neutrophils % 90.8 H Neutrophils % (Manual) 71.3 D Band Neutrophils % 21.8 Lymphocytes % 4.1 L Lymphocytes % (Manual) 2.0 L D Monocytes % 4.6 Monocytes % (Manual) 3 L Eosinophils % 0.3 Eosinophils % (Manual) 0.0 Basophils % 0.2 Basophils % (Manual) 0.0 Myelocytes % (Man) 0 D Promyelocytes % (Man) 0 Blast Cells % (Manual) 0 Nucleated RBC % 0 Metamyelocytes 2 D Hypochromia 0 Platelet Estimate Decreased Polychromasia 0 Poikilocytosis 0 Anisocytosis 0 Microcytosis 0 Macrocytosis 0 Sodium 125 L Potassium 5.1 Chloride 95 L Carbon Dioxide 17 L Anion Gap 13 BUN 48.3 H Creatinine 3.6 H Est GFR (CKD-EPI)AfAm 19.51 Est GFR (CKD-EPI)NonAf 16.83 POC Glucometer Random Glucose 349 H Calcium 6.8 L* Phosphorus 5.6 H Magnesium 1.7 L Total Bilirubin 1.8 H AST 1428 H ALT 1985 H Alkaline Phosphatase 87 Creatine Kinase Creatine Kinase Index CK-MB (CK-2) Total Protein 4.2 L Albumin 1.6 L Crossmatch IS Only See Detail 05/03/19 05/03/19 05/04/19 12:32 16:44 05:35 WBC RBC Hgb Hct MCV MCH MCHC RDW Plt Count MPV Absolute Neuts (auto) Neutrophils % Neutrophils % (Manual) Band Neutrophils % Lymphocytes % Lymphocytes % (Manual) Monocytes % Monocytes % (Manual) Eosinophils % Eosinophils % (Manual) Basophils % Basophils % (Manual) Myelocytes % (Man) Promyelocytes % (Man) Blast Cells % (Manual) Nucleated RBC % Metamyelocytes Hypochromia Platelet Estimate Polychromasia Poikilocytosis Anisocytosis Microcytosis Macrocytosis Sodium 125 L Potassium 4.4 Chloride 95 L Carbon Dioxide 19 L Anion Gap 11 BUN 53.6 H Creatinine 4.1 H Est GFR (CKD-EPI)AfAm 16.67 Est GFR (CKD-EPI)NonAf 14.38 POC Glucometer 318 279 Random Glucose 331 H Calcium 6.7 L* Phosphorus 4.5 Magnesium 1.8 Total Bilirubin 2.8 H AST 551 H ALT 1211 H Alkaline Phosphatase 135 H Creatine Kinase 155 Creatine Kinase Index 1.3 CK-MB (CK-2) 2.1 Total Protein 3.9 L Albumin 1.4 L Crossmatch IS Only 05/04/19 05/04/19 05:35 06:17 WBC 31.1 H* RBC 3.38 L Hgb 9.5 L Hct 28.3 L MCV 83.7 MCH 28.2 MCHC 33.6 RDW 14.9 Plt Count 76 L MPV 10.9 Absolute Neuts (auto) 25.5 H Neutrophils % 82.1 Neutrophils % (Manual) Band Neutrophils % Lymphocytes % 6.6 L D Lymphocytes % (Manual) Monocytes % 10.5 H D Monocytes % (Manual) Eosinophils % 0.5 Eosinophils % (Manual) Basophils % 0.3 Basophils % (Manual) Myelocytes % (Man) Promyelocytes % (Man) Blast Cells % (Manual) Nucleated RBC % 0 Metamyelocytes Hypochromia Platelet Estimate Polychromasia Poikilocytosis Anisocytosis Microcytosis Macrocytosis Sodium Potassium Chloride Carbon Dioxide Anion Gap BUN Creatinine Est GFR (CKD-EPI)AfAm Est GFR (CKD-EPI)NonAf POC Glucometer 205 Random Glucose Calcium Phosphorus Magnesium Total Bilirubin AST ALT Alkaline Phosphatase Creatine Kinase Creatine Kinase Index CK-MB (CK-2) Total Protein Albumin Crossmatch IS Only Active Medications Generic Name Dose Route Start Last Admin Trade Name Rommel PRN Reason Stop Dose Admin Heparin Sodium (Porcine) 5,000 unit 05/02/19 22:00 05/04/19 06:17 Heparin - SQ 5,000 unit TID MARYSE Administration Piperacillin Sod/Tazobactam 50 mls @ 100 mls/hr 04/30/19 18:00 05/04/19 01:03 Sod 3.375 gm/ Dextrose IVPB 100 mls/hr Q8H-IV MARYSE Administration Protocol Fluconazole 100 mls @ 100 mls/hr 04/30/19 18:00 05/03/19 09:37 Diflucan 200 Mg/Ns Premixed Ivpb - IVPB 100 mls/hr DAILY MARYSE Administration Norepinephrine Bitartrate 4, 500 mls @ 37.5 mls/hr 04/30/19 19:30 05/04/19 01 :03 000 mcg/ Dextrose IV 9 mcg/min TITR MARYSE 67.5 mls/hr Administration Protocol 5 MCG/MIN Vasopressin 50 units/ Sodium 100 mls @ 4 mls/hr 04/30/19 19:30 05/03/19 22:07 Chloride IVPB Not Given ASDIR MARYSE Protocol 2 UNITS/HR Fentanyl 500 mcg/ Dextrose 100 mls @ 5 mls/hr 05/01/19 12:15 05/03/19 16:51 IVPB Not Given TITR MARYSE Protocol 25 MCG/HR Propofol 1,000,000 mcg in 100 mls @ 6.222 mls/hr 05/02/19 12:00 05/03/19 15: 03 Diprivan - IVPB 15 mcg/kg/min TITR MARYSE 9.333 mls/hr Administration Protocol 10 MCG/KG/MIN Sodium Bicarbonate 75 meq/ 1,000 mls @ 100 mls/hr 05/02/19 13:00 05/04/19 05: 52 Dextrose/Sodium Chloride IV Not Given Q10H MARYSE Sodium Chloride 1,000 mls @ 75 mls/hr 05/03/19 09:00 05/03/19 22:06 Normal Saline - IV 75 mls/hr ASDIR MARYSE Administration Pantoprazole Sodium 80 mg/ 100 mls @ 10 mls/hr 05/04/19 06:15 05/04/19 06:18 Sodium Chloride IVPB 05/07/19 06:06 10 mls/hr Q10H MARYSE Administration 8 MG/HR Insulin Aspart 1 vial 05/01/19 07:00 05/04/19 06:18 Novolog Vial Sliding Scale - SQ 4 units TIDAC MARYSE Administration Protocol Mupirocin 1 applic 04/30/19 22:00 05/03/19 22:57 Bactroban Ointment (For Decolonization) - NS 05/05/19 21:59 1 applic BID MARYSE Administration Ondansetron HCl 4 mg 04/30/19 16:45 Zofran Injection IVPUSH Q6H PRN NAUSEA AND/OR VOMITING CBC, BMP 05/04/19 05:35 05/04/19 05:35 ASSESSMENT/PLAN: The pt is a 64 yo m w/ PMH MR, HTN, DM, b/l LE swelling who was BIBEMS for a 1 day h/o Hypotension (70/51), lethargy and tachycardia. Patient transferred to ICU intubated for post op management. #Septich shock 2/2 perforated duodenal ulcer (POD# 4) S/P lap choly repair # peritonitis * NGT place surgically. per surgery NGT SHOULD NOT BE REMOVED OR MANIPULATED for 1 week * Patient on protonix GTT * s/p flagyl in ED * placed on zosyn and fluconazole post op per ID * ifcx negative thus far * BP stable of levo GTT , off vaso GTT * cont abx pr ID * ICU monitor IV fluids , pressors manage by ICU * mechanical ventilation maintain o2 sat > 90 * monitor drian out put * monitor urine out put # acute Hypoxic respiratory failure due to septic shock on mechanical ventilation per ICU # Hyperkalemia , resolved # Hypervolemic Hyponatremia 125 today decrease fluids IV , and give lasix 40 IV push once , assess daily # DOMENIC on CKD likely 2/2 septic shock , nephrology consulted , avid nephrotoxic agents # anemia and thrombocytopenia likely due to sepsis , monitor cbc daily , on Hep sc for prophylaxis # metabolic acidosis; patient had a lactic acidosis pre op * dc NS @ 75 # transaminitis 2/2 septic sock , trend daily , avoid hepatotoxic agents # mental disability #GI and DVT prophylaxis # monitor in ICU prognosis guarded Visit type - Emergency Visit Emergency Visit: Yes ED Registration Date: 04/30/19 Care time: The patient presented to the Emergency Department on the above date and was hospitalized for further evaluation of their emergent condition. - New Patient This patient is new to me today: No - Critical Care Critical Care patient: Yes Total Critical Care Time (in minutes): 45 Critical Care Statement: The care of this patient involved high complexity decision making to prevent further life threatening deterioration of the patient 's condition and/or to evaluate & treat vital organ system(s) failure or risk of failure. - Discharge Referral Referred to [facility] Med [facility] No ATTENDING PHYSICIAN STATEMENT I saw and evaluated the patient. I reviewed the resident's note and discussed the case with the resident. I agree with the resident's findings and plan as documented. SUBJECTIVE: OBJECTIVE: ASSESSMENT AND PLAN:
[2019-05-04] MEDS ORDERED: NOREPINEPHRINE BITARTRATE 4 MG/4 ML ML IV ONE (10:16)
[2019-05-04] MEDS: MUPIROCIN 2% TOPICAL OINTMENT FOR DECOLONIZATION NS SCH ×2 (11:12→21:28)
[2019-05-04] MEDS: SODIUM CHLORIDE 1,000 ML IV SCH (11:12)
[2019-05-04] MEDS ORDERED: PT OWN MED DRAWER 7, Y5N ONE (11:36)
[2019-05-04] MEDS: FLUCONAZOLE 200 MG/NS 100 ML IVPB SCH (11:39)
[2019-05-04] MEDS ORDERED: FUROSEMIDE 40 MG/4 ML INJECTABLE VIAL IVPUSH ONE ×2 (12:05→21:17)
--- NOTE | 2019-05-04 12:58 | PN ---
Physical Exam: SUBJECTIVE: Patient seen and examined O/N: given lasix 40mg IVP sedated on propofol OBJECTIVE: Vital Signs Period Temp Pulse Resp BP Sys/Booth Pulse Ox Last 24 Hr 96.4 F-97.9 F 75-84 14-17 87-125/54-79 100-100 GENERAL: intubated and sedated on propofol HEAD: Normal with no signs of trauma. EYES: sclera anicteric, conjunctiva clear. No ptosis. ENT: Ears normal, nares patent, moist mucous membranes. NGT ~60cm at nares NECK: Trachea midline, full range of motion, supple. LUNGS: coarase b/l BS to auscultation bilaterally. Vent 500, 14, 5, 50% HEART: Regular rate and rhythm, S1, S2 without murmur, rub or gallop. ABDOMEN: Soft, nontender, nondistended, hypoactive bowel sounds, surgical dress ings overlying mid abd. ASHLEY with SS drainage : edematous scrotum EXTREMITIES: 2+ pulses, warm, well-perfused, nonpitting edema. NEUROLOGICAL: sedated on propofol SKIN: Warm, dry, normal turgor, no rashes or lesions noted Laboratory Results - last 24 hr 04/30/19 05/03/19 05/04/19 09:00 16:44 05:35 WBC RBC Hgb Hct MCV MCH MCHC RDW Plt Count MPV Absolute Neuts (auto) Neutrophils % Lymphocytes % Monocytes % Eosinophils % Basophils % Nucleated RBC % Sodium 125 L Potassium 4.4 Chloride 95 L Carbon Dioxide 19 L Anion Gap 11 BUN 53.6 H Creatinine 4.1 H Est GFR (CKD-EPI)AfAm 16.67 Est GFR (CKD-EPI)NonAf 14.38 POC Glucometer 279 Random Glucose 331 H Calcium 6.7 L* Phosphorus 4.5 Magnesium 1.8 Total Bilirubin 2.8 H AST 551 H ALT 1211 H Alkaline Phosphatase 135 H Creatine Kinase 155 Creatine Kinase Index 1.3 CK-MB (CK-2) 2.1 Total Protein 3.9 L Albumin 1.4 L Crossmatch IS Only See Detail 05/04/19 05/04/19 05/04/19 05:35 06:17 11:48 WBC 31.1 H* RBC 3.38 L Hgb 9.5 L Hct 28.3 L MCV 83.7 MCH 28.2 MCHC 33.6 RDW 14.9 Plt Count 76 L MPV 10.9 Absolute Neuts (auto) 25.5 H Neutrophils % 82.1 Lymphocytes % 6.6 L D Monocytes % 10.5 H D Eosinophils % 0.5 Basophils % 0.3 Nucleated RBC % 0 Sodium Potassium Chloride Carbon Dioxide Anion Gap BUN Creatinine Est GFR (CKD-EPI)AfAm Est GFR (CKD-EPI)NonAf POC Glucometer 205 321 Random Glucose Calcium Phosphorus Magnesium Total Bilirubin AST ALT Alkaline Phosphatase Creatine Kinase Creatine Kinase Index CK-MB (CK-2) Total Protein Albumin Crossmatch IS Only Active Medications Generic Name Dose Route Start Last Admin Trade Name Freq PRN Reason Stop Dose Admin Heparin Sodium (Porcine) 5,000 unit 05/02/19 22:00 05/04/19 06:17 Heparin - SQ 5,000 unit TID MARYSE Administration Piperacillin Sod/Tazobactam 50 mls @ 100 mls/hr 04/30/19 18:00 05/04/19 11:12 Sod 3.375 gm/ Dextrose IVPB 100 mls/hr Q8H-IV MARYSE Administration Protocol Fluconazole 100 mls @ 100 mls/hr 04/30/19 18:00 05/04/19 11:39 Diflucan 200 Mg/Ns Premixed Ivpb - IVPB 100 mls/hr DAILY MARYSE Administration Norepinephrine Bitartrate 4, 500 mls @ 37.5 mls/hr 04/30/19 19:30 05/04/19 01:03 000 mcg/ Dextrose IV 9 mcg/min TITR MARYSE 67.5 mls/hr Administration Protocol 5 MCG/MIN Vasopressin 50 units/ Sodium 100 mls @ 4 mls/hr 04/30/19 19:30 05/03/19 22:07 Chloride IVPB Not Given ASDIR MARYSE Protocol 2 UNITS/HR Fentanyl 500 mcg/ Dextrose 100 mls @ 5 mls/hr 05/01/19 12:15 05/03/19 16:51 IVPB Not Given TITR MARYSE Protocol 25 MCG/HR Propofol 1,000,000 mcg in 100 mls @ 6.222 mls/hr 05/02/19 12:00 05/03/19 15:03 Diprivan - IVPB 15 mcg/kg/min TITR MARYSE 9.333 mls/hr Administration Protocol 10 MCG/KG/MIN Pantoprazole Sodium 80 mg/ 100 mls @ 10 mls/hr 05/04/19 06:15 05/04/19 06:18 Sodium Chloride IVPB 05/07/19 06:06 10 mls/hr Q10H MARYSE Administration 8 MG/HR Insulin Aspart 1 vial 05/01/19 07:00 05/04/19 11:49 Novolog Vial Sliding Scale - SQ 8 units TIDAC MARYSE Administration Protocol Mupirocin 1 applic 04/30/19 22:00 05/04/19 11:12 Bactroban Ointment (For Decolonization) - NS 05/05/19 21:59 1 applic BID MARYSE Administration Ondansetron HCl 4 mg 04/30/19 16:45 Zofran Injection IVPUSH Q6H PRN NAUSEA AND/OR VOMITING ASSESSMENT/PLAN: 64 yo m w/ PMH MR, HTN, DM, b/l LE swelling who was BIBEMS for a 1 day h/o Hypotension (70/51), lethargy and tachycardia. Post-op admission to ICU intubated for HD monitoring. Neuro # sedated - intubated and sedated on propofol - sedation vacation to start on 05/05/19 Pulmonary # intubated - Vent: 500, 14, 5, 50% > CXR(04/30/19): left lower half of chest w/ opacity > ABG(05/01/19): 7.25/24.5/114/10.3/97 - weaning trials once stable Cardio # hypotension --likely 2/2 septic shock - levo gtt, down titrate as tolerated - CVP goal of 8-12 GI # perforated duodenum --possibly 2/2 freq NSAID usage vs H pylori # transamnitis --likely shocked liver ---improving > AST/ALT: 1911/1078 --> 551/1211 > Lactic Acid: 3.8, 6.1, 9.7, 6.3 -->3.0 - s/p Ex-Lap w/ Jack Patch(Perlita, 04/30/19) - NGT place surgically. per surgery NGT SHOULD NOT BE REMOVED OR MANIPULATED for 1 week - protonix GTT - abx regimen: -- s/p flagyl in ED -- zosyn and fluconazole - if intra op cultures negative for yeast, ok to DC fluconazole per surgery Renal #DOMENIC --likely 2/2 cardiorenal syndrome > Cr 1.4, 1.1, 1.9, 2.3 --> 4.1 - post-op ABG shows metabolic acidosis; patient had a lactic acidosis pre op - Nephro(Lesley) consult: --lasix trial - hold fluids - lasix 40mg IVP x1 Heme # thrombocytopenia > Plt: 211, 179, 156, 102, 89, 77, 76 - HIT panel --pending ID # perforated duodenal ulcer - ID(Rudy) consult: -- empiric zosyn + fluconazole PPX - protonix gtt - lovenox 40 sq for DVT ppx per surgery #Dispo - admit ICU Visit type - Emergency Visit Emergency Visit: No - New Patient This patient is new to me today: No - Critical Care Critical Care patient: Yes Total Critical Care Time (in minutes): 35 Critical Care Statement: The care of this patient involved high complexity decision making to prevent further life threatening deterioration of the patient's condition and/or to evaluate & treat vital organ system(s) failure or risk of failure. ATTENDING PHYSICIAN STATEMENT I saw and evaluated the patient. I reviewed the resident's note and discussed the case with the resident. I agree with the resident's findings and plan as documented. SUBJECTIVE: OBJECTIVE: ASSESSMENT AND PLAN:
[2019-05-04] MEDS: PROPOFOL 1,000,000 MCG/100 ML VIAL IVPB SCH ×2 (13:00→20:45)
--- NOTE | 2019-05-04 13:02 | PN ---
Teaching Attending Note Name of Resident: Oskar Saha ATTENDING PHYSICIAN STATEMENT I saw and evaluated the patient. I reviewed the resident's note and discussed the case with the resident. I agree with the resident's findings and plan as documented. SUBJECTIVE: Pt seen and examined in the ICU. Remains intubated, sedated on levophed gtt. OBJECTIVE: Vital Signs Period Temp Pulse Resp BP Sys/Booth Pulse Ox Last 24 Hr 96.4 F-97.9 F 75-84 14-17 87-125/54-79 100-100 Intake & Output 05/01/19 05/02/19 05/03/19 05/04/19 23:59 23:59 23:59 23:59 Intake Total 1585 3084 3793 3282 Output Total 3985 698 1924 410 Balance 35 2754 2633 2872 Weight 89.358 kg 103.7 kg 107.501 kg 108.998 kg Gen: intubated, sedated Heart: RRR Lung: scattered rhonchi Abd: soft, nontender Drain with serosanguinous fluid Ext: + edema CBC, BMP 05/04/19 05:35 05/04/19 05:35 Active Medications Heparin Sodium (Porcine) (Heparin -) 5,000 unit SQ TID MARYSE Last Admin: 05/04/19 06:17 Dose: 5,000 unit Piperacillin Sod/Tazobactam (Sod 3.375 gm/ Dextrose) 50 mls @ 100 mls/hr IVPB Q8H-IV MARYSE; Protocol Last Admin: 05/04/19 11:12 Dose: 100 mls/hr Fluconazole (Diflucan 200 Mg/Ns Premixed Ivpb -) 100 mls @ 100 mls/hr IVPB DAILY MARYSE Last Admin: 05/04/19 11:39 Dose: 100 mls/hr Norepinephrine Bitartrate 4, (000 mcg/ Dextrose) 500 mls @ 37.5 mls/hr IV TITR MARYSE; Protocol Last Admin: 05/04/19 01:03 Dose: 9 mcg/min, 67.5 mls/hr Vasopressin 50 units/ Sodium (Chloride) 100 mls @ 4 mls/hr IVPB ASDIR MARYSE; Protocol Last Admin: 05/03/19 22:07 Dose: Not Given Fentanyl 500 mcg/ Dextrose 100 mls @ 5 mls/hr IVPB TITR MARYSE; Protocol Last Admin: 05/03/19 16:51 Dose: Not Given Propofol (Diprivan -) 1,000,000 mcg in 100 mls @ 6.222 mls/hr IVPB TITR [facility]; Protocol Last Admin: 05/03/19 15:03 Dose: 15 mcg/kg/min, 9.333 mls/hr Pantoprazole Sodium 80 mg/ (Sodium Chloride) 100 mls @ 10 mls/hr IVPB Q10H [facility] Stop: 05/07/19 06:06 Last Admin: 05/04/19 06:18 Dose: 10 mls/hr Insulin Aspart (Novolog Vial Sliding Scale -) 1 vial SQ TIDAC [facility]; Protocol Last Admin: 05/04/19 11:49 Dose: 8 units Mupirocin (Bactroban Ointment (For Decolonization) -) 1 applic NS BID [facility] Stop: 05/05/19 21:59 Last Admin: 05/04/19 11:12 Dose: 1 applic Ondansetron HCl (Zofran Injection) 4 mg IVPUSH Q6H PRN PRN Reason: NAUSEA AND/OR VOMITING ASSESSMENT AND PLAN: Acute Hypoxic Respiratory Failure Perforated Duodenal Ulcer s/p Ex-lap/Jack Patch Repair Peritonitis Septic Shock Acute Kidney Injury Elevated LFTs likely Ischemic Injury Hyponatremia Volume Overload Anemia Thrombocytopenia Mental Retardation HTN DM - continue antibiotics, antifungals - monitor drain output - IV lasix - monitor urine output, creatinine - titrate pressors to maintain MAP >65 - keep CVP 8-12 - monitor CBC - taper FiO2 to keep SpO2 >90% - protonix - monitor WBC trend - DVT/GI prophylaxis - continue ICU monitoring - prognosis guarded critical care time spent in reviewing chart, evaluating patient and formulating plan 35 min
[2019-05-04 13:45] LABS: PLATELET ESTIMATE DECREASED
--- NOTE | 2019-05-04 14:30 | PN ---
Progress Note, Physician History of Present Illness: SEDATED ON VENTILATOR HYPOTENSIVE ON PRESSORS AFEBRILE WBC MARKEDLY ELEVATED , DECREASED PLT C/S NO GROWTH - Current Medication List Current Medications: Active Medications Heparin Sodium (Porcine) (Heparin -) 5,000 unit SQ TID MARYSE Last Admin: 05/04/19 06:17 Dose: 5,000 unit Piperacillin Sod/Tazobactam (Sod 3.375 gm/ Dextrose) 50 mls @ 100 mls/hr IVPB Q8H-IV MARYSE; Protocol Last Admin: 05/04/19 11:12 Dose: 100 mls/hr Fluconazole (Diflucan 200 Mg/Ns Premixed Ivpb -) 100 mls @ 100 mls/hr IVPB DAILY MARYSE Last Admin: 05/04/19 11:39 Dose: 100 mls/hr Norepinephrine Bitartrate 4, (000 mcg/ Dextrose) 500 mls @ 37.5 mls/hr IV TITR MARYSE; Protocol Last Admin: 05/04/19 01:03 Dose: 9 mcg/min, 67.5 mls/hr Vasopressin 50 units/ Sodium (Chloride) 100 mls @ 4 mls/hr IVPB ASDIR MARYSE; Protocol Last Admin: 05/03/19 22:07 Dose: Not Given Fentanyl 500 mcg/ Dextrose 100 mls @ 5 mls/hr IVPB TITR MARYSE; Protocol Last Admin: 05/03/19 16:51 Dose: Not Given Propofol (Diprivan -) 1,000,000 mcg in 100 mls @ 6.222 mls/hr IVPB TITR MARYSE; Protocol Last Admin: 05/03/19 15:03 Dose: 15 mcg/kg/min, 9.333 mls/hr Pantoprazole Sodium 80 mg/ (Sodium Chloride) 100 mls @ 10 mls/hr IVPB Q10H MARYSE Stop: 05/07/19 06:06 Last Admin: 05/04/19 06:18 Dose: 10 mls/hr Insulin Aspart (Novolog Vial Sliding Scale -) 1 vial SQ TIDAC MARYSE; Protocol Last Admin: 05/04/19 11:49 Dose: 8 units Mupirocin (Bactroban Ointment (For Decolonization) -) 1 applic NS BID MARYSE Stop: 05/05/19 21:59 Last Admin: 05/04/19 11:12 Dose: 1 applic Ondansetron HCl (Zofran Injection) 4 mg IVPUSH Q6H PRN PRN Reason: NAUSEA AND/OR VOMITING - Objective Vital Signs: Vital Signs Temperature 97.8 F 05/04/19 05:00 Pulse Rate 84 05/04/19 12:22 Respiratory Rate 16 05/04/19 12:22 Blood Pressure 120/64 05/04/19 12:22 O2 Sat by Pulse Oximetry (%) 100 05/04/19 08:40 Constitutional: Yes: No Distress Eyes: Yes: Conjunctiva Clear Cardiovascular: Yes: Regular Rate and Rhythm, S1, S2 Respiratory: Yes: Mechanically Ventilated Gastrointestinal: Yes: Normal Bowel Sounds, Soft, Other (+ SURGICAL WOUND, DRAIN WITH SEROSANGUINOUS FLUID) Edema: Yes Labs: CBC, BMP 05/04/19 05:35 05/04/19 05:35 INR, PTT INR 1.34 (0.83-1.09) H 04/30/19 17:30 Assessment/Plan S/P PERFORATED PEPTIC ULCER SEPSIS/SEPTIC SHOCK LEUKOCYTOSIS THROMBOCYTOPENIA DOMENIC SHOCK LIVER LACTIC ACIDOSIS CONTINUE VENTILATORY/ HEMODYNAMIC SUPPORT MONITOR PLT COUNT EMPIRIC ZOSYN/ FLUCONAZOLE
[2019-05-04] MEDS: FENTANYL INJECTION 500 MCG in DEXTROSE 5%-WATER - 90 ML IVPB SCH (15:01)
--- NOTE | 2019-05-04 16:26 | PN ---
Progress Note, Physician History of Present Illness: Pt seen and examined at bedside. He remains in the ICU. He remains intubated. He is making urine. - Current Medication List Current Medications: Active Medications Heparin Sodium (Porcine) (Heparin -) 5,000 unit SQ TID MARYSE Last Admin: 05/04/19 15:01 Dose: 5,000 unit Piperacillin Sod/Tazobactam (Sod 3.375 gm/ Dextrose) 50 mls @ 100 mls/hr IVPB Q8H-IV MARYSE; Protocol Last Admin: 05/04/19 11:12 Dose: 100 mls/hr Fluconazole (Diflucan 200 Mg/Ns Premixed Ivpb -) 100 mls @ 100 mls/hr IVPB DAILY MARYSE Last Admin: 05/04/19 11:39 Dose: 100 mls/hr Norepinephrine Bitartrate 4, (000 mcg/ Dextrose) 500 mls @ 37.5 mls/hr IV TITR MARYSE; Protocol Last Admin: 05/04/19 01:03 Dose: 9 mcg/min, 67.5 mls/hr Vasopressin 50 units/ Sodium (Chloride) 100 mls @ 4 mls/hr IVPB ASDIR MARYSE; Protocol Last Admin: 05/03/19 22:07 Dose: Not Given Fentanyl 500 mcg/ Dextrose 100 mls @ 5 mls/hr IVPB TITR MARYSE; Protocol Last Admin: 05/04/19 15:01 Dose: Not Given Propofol (Diprivan -) 1,000,000 mcg in 100 mls @ 6.222 mls/hr IVPB TITR MARYSE; Protocol Last Admin: 05/04/19 13:00 Dose: 15 mcg/kg/min, 9.333 mls/hr Pantoprazole Sodium 80 mg/ (Sodium Chloride) 100 mls @ 10 mls/hr IVPB Q10H MARYSE Stop: 05/07/19 06:06 Last Admin: 05/04/19 15:32 Dose: 10 mls/hr Insulin Aspart (Novolog Vial Sliding Scale -) 1 vial SQ TIDAC MARYSE; Protocol Last Admin: 05/04/19 11:49 Dose: 8 units Mupirocin (Bactroban Ointment (For Decolonization) -) 1 applic NS BID MARYSE Stop: 05/05/19 21:59 Last Admin: 05/04/19 11:12 Dose: 1 applic Ondansetron HCl (Zofran Injection) 4 mg IVPUSH Q6H PRN PRN Reason: NAUSEA AND/OR VOMITING - Objective Vital Signs: Vital Signs Temperature 97.8 F 05/04/19 05:00 Pulse Rate 84 05/04/19 12:22 Respiratory Rate 16 05/04/19 12:22 Blood Pressure 120/64 05/04/19 12:22 O2 Sat by Pulse Oximetry (%) 100 05/04/19 08:40 Constitutional: Yes: Calm Eyes: Yes: Conjunctiva Clear HENT: Yes: Atraumatic Cardiovascular: Yes: S1, S2 Respiratory: Yes: Mechanically Ventilated Gastrointestinal: Yes: Soft Genitourinary: Yes: Banuelos Present, Scrotal Edema Musculoskeletal: Yes: Muscle Weakness Edema: Yes Edema: LUE: 1+, RUE: 1+, LLE: 2+, RLE: 2+ Neurological: Yes: Lethargy Labs: CBC, BMP 05/04/19 05:35 05/04/19 05:35 INR, PTT INR 1.34 (0.83-1.09) H 04/30/19 17:30 - ....Imaging Chest X-ray: Report Reviewed Assessment/Plan Current Medications Generic Name Dose Route Start Last Admin Trade Name Freq PRN Reason Stop Dose Admin Heparin Sodium (Porcine) 5,000 unit 05/02/19 22:00 05/04/19 15:01 Heparin - SQ 5,000 unit TID MARYSE Administration Piperacillin Sod/Tazobactam 50 mls @ 100 mls/hr 04/30/19 18:00 05/04/19 11:12 Sod 3.375 gm/ Dextrose IVPB 100 mls/hr Q8H-IV MARYSE Administration Protocol Fluconazole 100 mls @ 100 mls/hr 04/30/19 18:00 05/04/19 11:39 Diflucan 200 Mg/Ns Premixed Ivpb - IVPB 100 mls/hr DAILY MARYSE Administration Norepinephrine Bitartrate 4, 500 mls @ 37.5 mls/hr 04/30/19 19:30 05/04/19 01 :03 000 mcg/ Dextrose IV 9 mcg/min TITR MARYSE 67.5 mls/hr Administration Protocol 5 MCG/MIN Vasopressin 50 units/ Sodium 100 mls @ 4 mls/hr 04/30/19 19:30 05/03/19 22:07 Chloride IVPB Not Given ASDIR MARYSE Protocol 2 UNITS/HR Fentanyl 500 mcg/ Dextrose 100 mls @ 5 mls/hr 05/01/19 12:15 05/04/19 15:01 IVPB Not Given TITR MARYSE Protocol 25 MCG/HR Propofol 1,000,000 mcg in 100 mls @ 6.222 mls/hr 05/02/19 12:00 05/04/19 13: 00 Diprivan - IVPB 15 mcg/kg/min TITR MARYSE 9.333 mls/hr Administration Protocol 10 MCG/KG/MIN Pantoprazole Sodium 80 mg/ 100 mls @ 10 mls/hr 05/04/19 06:15 05/04/19 15:32 Sodium Chloride IVPB 05/07/19 06:06 10 mls/hr Q10H MARYSE Administration 8 MG/HR Insulin Aspart 1 vial 05/01/19 07:00 05/04/19 11:49 Novolog Vial Sliding Scale - SQ 8 units TIDAC MARYSE Administration Protocol Mupirocin 1 applic 04/30/19 22:00 05/04/19 11:12 Bactroban Ointment (For Decolonization) - NS 05/05/19 21:59 1 applic BID MARYSE Administration Ondansetron HCl 4 mg 04/30/19 16:45 Zofran Injection IVPUSH Q6H PRN NAUSEA AND/OR VOMITING IMPRESSION DOMENIC septic shock perforated duodenal ulcer fluid overload MR DM possible ckd transamitis hyperkalemia hyponatremia PLAN - potassium improved - lasix trial to help with free water excretion - arm maker is worsening, maintain map 65 - repeat labs in am - monitor response to lasix - discussed with ICU team
--- NOTE | 2019-05-04 17:59 | PN ---
Teaching Attending Note Name of Resident: Vidal Aguilar ATTENDING PHYSICIAN STATEMENT I saw and evaluated the patient. I reviewed the resident's note and discussed the case with the resident. I agree with the resident's findings and plan as documented. Subjective: Patient seen and examined at bed side. High WBC count but trending down, still intubated and mechanically ventilated. pressor requirement decreasing. Objective: GENERAL: intubated and sedated on propofol, RAAS -2 HEAD: Normal with no signs of trauma. EYES: sclera anicteric, conjunctiva clear. No ptosis. ENT: Ears normal, nares patent, moist mucous membranes. NGT+ NECK: Trachea midline, full range of motion, supple. LUNGS: coarse b/l BS to auscultation bilaterally. HEART: Regular rate and rhythm, S1, S2 without murmur, rub or gallop. ABDOMEN: Soft, non-tender, non-distended, hypoactive bowel sounds, surgical dressing++ EXTREMITIES: 2+ pulses, warm, well-perfused, non-pitting edema. NEUROLOGICAL: sedated on propofol SKIN: Warm, dry, normal turgor, no rashes or lesions noted Vital Signs - 24 hr 05/03/19 05/03/19 05/03/19 19:00 20:30 21:00 Temperature 97.0 F L 97.6 F Pulse Rate 78 81 Respiratory 15 15 17 Rate Blood Pressure 101/61 97/55 L O2 Sat by Pulse 100 Oximetry (%) 05/03/19 05/04/19 05/04/19 23:00 00:07 00:18 Temperature 97.7 F Pulse Rate 83 83 Respiratory 15 15 Rate Blood Pressure 100/61 99/58 L O2 Sat by Pulse Oximetry (%) 05/04/19 05/04/19 05/04/19 01:00 01:03 03:00 Temperature 97.9 F 97.6 F Pulse Rate 83 81 79 Respiratory 16 15 Rate Blood Pressure 101/56 L 101/56 L 94/54 L O2 Sat by Pulse Oximetry (%) 05/04/19 05/04/19 05/04/19 04:45 05:00 07:00 Temperature 97.8 F Pulse Rate 80 80 Respiratory 15 16 16 Rate Blood Pressure 112/61 123/66 O2 Sat by Pulse Oximetry (%) 05/04/19 05/04/19 05/04/19 08:00 08:40 09:20 Temperature Pulse Rate 83 80 81 Respiratory 16 17 16 Rate Blood Pressure 123/66 98/61 O2 Sat by Pulse 100 Oximetry (%) 05/04/19 05/04/19 05/04/19 10:05 11:43 12:20 Temperature Pulse Rate 79 83 Respiratory 16 16 16 Rate Blood Pressure 123/66 125/79 O2 Sat by Pulse Oximetry (%) 05/04/19 05/04/19 12:22 16:36 Temperature Pulse Rate 84 Respiratory 16 18 Rate Blood Pressure 120/64 O2 Sat by Pulse Oximetry (%) Microbiology 04/30/19 09:00 Blood - Peripheral Venous Blood Culture - Preliminary NO GROWTH OBTAINED AFTER 96 HOURS, INCUBATION TO CONTINUE FOR 1 DAYS. 04/30/19 09:00 Blood - Peripheral Venous Blood Culture - Preliminary NO GROWTH OBTAINED AFTER 96 HOURS, INCUBATION TO CONTINUE FOR 1 DAYS. 04/30/19 14:28 Body Fluid - Other Gram Stain - Final 04/30/19 14:28 Body Fluid - Other Body Fluid Culture - Final NO GROWTH OF AEROBIC ORGANISMS AFTER 48 HOURS INCUBATION 04/30/19 14:28 Body Fluid - Other Anaerobic Culture - Final NO ANAEROBES WERE ISOLATED 04/30/19 14:38 Abdomen Gram Stain - Final 04/30/19 12:30 Urine - Urine Clean Catch Urine Culture - Final NO GROWTH OBTAINED Laboratory Results - last 24 hr 04/30/19 05/04/19 05/04/19 09:00 05:35 05:35 WBC 31.1 H* RBC 3.38 L Hgb 9.5 L Hct 28.3 L MCV 83.7 MCH 28.2 MCHC 33.6 RDW 14.9 Plt Count 76 L MPV 10.9 Absolute Neuts (auto) 25.5 H Total Counted 100 Neutrophils % 82.1 Neutrophils % (Manual) 49.0 D Band Neutrophils % 27.0 Lymphocytes % 6.6 L D Lymphocytes % (Manual) 7.0 L D Monocytes % 10.5 H D Monocytes % (Manual) 12 H D Eosinophils % 0.5 Eosinophils % (Manual) 2.0 D Basophils % 0.3 Nucleated RBC % 0 Metamyelocytes 3 H D Platelet Estimate Decreased Sodium 125 L Potassium 4.4 Chloride 95 L Carbon Dioxide 19 L Anion Gap 11 BUN 53.6 H Creatinine 4.1 H Est GFR (CKD-EPI)AfAm 16.67 Est GFR (CKD-EPI)NonAf 14.38 POC Glucometer Random Glucose 331 H Calcium 6.7 L* Phosphorus 4.5 Magnesium 1.8 Total Bilirubin 2.8 H AST 551 H ALT 1211 H Alkaline Phosphatase 135 H Creatine Kinase 155 Creatine Kinase Index 1.3 CK-MB (CK-2) 2.1 Total Protein 3.9 L Albumin 1.4 L Crossmatch IS Only See Detail 05/04/19 05/04/19 05/04/19 06:17 11:48 17:13 WBC RBC Hgb Hct MCV MCH MCHC RDW Plt Count MPV Absolute Neuts (auto) Total Counted Neutrophils % Neutrophils % (Manual) Band Neutrophils % Lymphocytes % Lymphocytes % (Manual) Monocytes % Monocytes % (Manual) Eosinophils % Eosinophils % (Manual) Basophils % Nucleated RBC % Metamyelocytes Platelet Estimate Sodium Potassium Chloride Carbon Dioxide Anion Gap BUN Creatinine Est GFR (CKD-EPI)AfAm Est GFR (CKD-EPI)NonAf POC Glucometer 205 321 294 Random Glucose Calcium Phosphorus Magnesium Total Bilirubin AST ALT Alkaline Phosphatase Creatine Kinase Creatine Kinase Index CK-MB (CK-2) Total Protein Albumin Crossmatch IS Only Current Medications Generic Name Dose Route Start Last Admin Trade Name Freq PRN Reason Stop Dose Admin Heparin Sodium (Porcine) 5,000 unit 05/02/19 22:00 05/04/19 15:01 Heparin - SQ 5,000 unit TID MARYSE Administration Piperacillin Sod/Tazobactam 50 mls @ 100 mls/hr 04/30/19 18:00 05/04/19 17:28 Sod 3.375 gm/ Dextrose IVPB 100 mls/hr Q8H-IV MARYSE Administration Protocol Fluconazole 100 mls @ 100 mls/hr 04/30/19 18:00 05/04/19 11:39 Diflucan 200 Mg/Ns Premixed Ivpb - IVPB 100 mls/hr DAILY MARYSE Administration Norepinephrine Bitartrate 4, 500 mls @ 37.5 mls/hr 04/30/19 19:30 05/04/19 01 :03 000 mcg/ Dextrose IV 9 mcg/min TITR MARYSE 67.5 mls/hr Administration Protocol 5 MCG/MIN Vasopressin 50 units/ Sodium 100 mls @ 4 mls/hr 04/30/19 19:30 05/03/19 22:07 Chloride IVPB Not Given ASDIR MARYSE Protocol 2 UNITS/HR Fentanyl 500 mcg/ Dextrose 100 mls @ 5 mls/hr 05/01/19 12:15 05/04/19 15:01 IVPB Not Given TITR MARYSE Protocol 25 MCG/HR Propofol 1,000,000 mcg in 100 mls @ 6.222 mls/hr 05/02/19 12:00 05/04/19 13: 00 Diprivan - IVPB 15 mcg/kg/min TITR MARYSE 9.333 mls/hr Administration Protocol 10 MCG/KG/MIN Pantoprazole Sodium 80 mg/ 100 mls @ 10 mls/hr 05/04/19 06:15 05/04/19 15:32 Sodium Chloride IVPB 05/07/19 06:06 10 mls/hr Q10H MARYSE Administration 8 MG/HR Insulin Aspart 1 vial 05/01/19 07:00 05/04/19 17:27 Novolog Vial Sliding Scale - SQ 6 units TIDAC MARYSE Administration Protocol Mupirocin 1 applic 04/30/19 22:00 05/04/19 11:12 Bactroban Ointment (For Decolonization) - NS 05/05/19 21:59 1 applic BID MARYSE Administration Ondansetron HCl 4 mg 04/30/19 16:45 Zofran Injection IVPUSH Q6H PRN NAUSEA AND/OR VOMITING A/P: 64 M h/o MR, HTN, DM, b/l LE swelling who was BIBEMS for a 1 day h/o Hypotension (70/51), lethargy and tachycardia. Admitted for perforated duodenal ulcer requiring ex-lap. Will be managed in the ICU. Perforated duodenal ulcer s/p exlap POD #[address] surgically[address] per surgery NGT SHOULD NOT BE REMOVED OR MANIPULATED for 1 week Patient on protonix GTT cont. Zosyn and Fluconazole, given 1 dose of Flagyl glory-operatively Follow cx, adjust abx accordingly, if BM are loose send C. diff in view of high WBC count DOMENIC likely 2/2 pre-renal and ATN with polyuria avoid nephrotoxins, adequate maintenance of MAP >65 trend daily chem Transaminitis likely 2/2 shock liver LFTs trending down avoid hepatotoxic drugs Septic shock d/t perforated ulcer, still requiring pressors but at lower doses IVF, NPO, serial abd. exams Surgery consult: Dr Bhat T2DM insulin drip as needed to maintain F/S 140-180 DVT ppx: Lovenox SC GI ppx: PPI ICU monitoring
[2019-05-05] MEDS ORDERED: DEXTROSE 5%-WATER - 50 ML IVPB ONE ×4 (02:17→21:55)
[2019-05-05] MEDS ORDERED: PIPERACILLIN/TAZOBACTAM 3.375 GM VIAL IVPB ONE ×4 (02:17→21:55)
[2019-05-05] MEDS: PIPERACILLIN/TAZOB 3.375 GM 3.375 GM in DEXTROSE 5%-WATER - 50 ML IVPB SCH ×3 (02:19→17:32)
[2019-05-05] MEDS ORDERED: fentaNYL CITRATE 250 MCG/5 ML VIAL ONE (06:13)
[2019-05-05 06:14] LABS: BASO % 0.2 % (0-2.0); HEMATOCRIT 28.4 % (35.4-49); HEMOGLOBIN 9.8 GM/dL (11.7-16.9); LYMPH % 7.3 % (8-40); MCH 28.4 pg (25.7-33.7); MCHC 34.3 g/dl (32.0-35.9); MEAN CELL VOLUME 82.7 fl (80-96); MEAN PLT VOLUME 10.6 fl (7.5-11.1); MONO % 27.4 % (3.8-10.2); NEUT % 64.1 % (42.8-82.8); PLATELET COUNT 71 K/MM3 (134-434); RBC 3.44 M/mm3 (4.00-5.60); RDW 14.7 % (11.9-15.9); WHITE BLOOD COUNT 24.1 K/mm3 (4.0-10.0)
[2019-05-05 06:22] LABS: ARTERIAL BLD GAS O2 SATURATION 94.8 % (95-98); ARTERIAL BLOOD GAS BASE EXCESS -5.4 meq/l (-2-2); ARTERIAL BLOOD GAS PCO2 29.5 mmHg (35-45); ARTERIAL BLOOD GAS PO2 77.7 mmHg (80-100)
[2019-05-05] MEDS: INSULIN SLIDING SCALE (NOVOLOG) 1 VIAL SQ SCH ×3 (06:23→16:43)
[2019-05-05] MEDS: HEPARIN NA (PORCINE) 5,000 UNITS/ML 1ML VIAL SQ SCH (06:23)
[2019-05-05 06:26] LABS: ALLENS TEST POSITIVE
[2019-05-05 06:32] LABS: INR 1.36 (0.83-1.09); PROTHROMBIN TIME (PATIENT) 16.1 SEC (9.7-13.0)
[2019-05-05 06:35] LABS: ACTIVATED PTT 44.8 SECONDS (25.2-36.5)
[2019-05-05 06:40] LABS: ALBUMIN 1.3 g/dl (3.4-5.0); BILIRUBIN,TOTAL 3.7 mg/dL (0.2-1); BLOOD UREA NITROGEN 57.9 mg/dL (7-18); CALCIUM 7.1 mg/dL (8.5-10.1); CREATININE 4.4 mg/dL (0.55-1.3); MAGNESIUM 1.8 mg/dL (1.8-2.4); PHOSPHOROUS 4.8 mg/dL (2.5-4.9); POTASSIUM 4.3 mmol/L (3.5-5.1)
--- NOTE | 2019-05-05 07:28 | PN ---
Physical Exam: SUBJECTIVE: Patient seen and examined at bed side in ICU , intubated sedated on mechanical ventilation and pressors levofedd and PPi drip , propofol S/P 40 lasix yesterday will give 60 x2 today uriine out about 1 L ASHLYE draineg 500-1000 cc ove r24 hour no fever over night OBJECTIVE: Vital Signs Period Temp Pulse Resp BP Sys/Booth Pulse Ox Last 24 Hr 97.4 F-98.7 F 79-105 16-22 98-131/57-79 98-100 GENERAL: Intubated and sedated. demarco in place , surgey wound cover by Gauze , ASHLEY drainage EYES: Pupils equal, round and sluggishly reactive to light. LUNGS: decrease breath sound at the bases HEART: Regular rate and rhythm, normal S1 and S2 without murmur, rub or gallop. ABDOMEN: Soft, not distended, surgical dressing intact. seracenous drainage LOWER EXTREMITIES: 2+ pulses, warm, well-perfused. No calf tenderness. +1 peripheral edema. NEUROLOGICAL: intubated sedated , PEPRLA swollen scrotum Laboratory Results - last 24 hr 05/04/19 05/04/19 05/04/19 05:35 11:48 17:13 WBC RBC Hgb Hct MCV MCH MCHC RDW Plt Count MPV Absolute Neuts (auto) Total Counted 100 Neutrophils % Neutrophils % (Manual) 49.0 D Band Neutrophils % 27.0 Lymphocytes % Lymphocytes % (Manual) 7.0 L D Monocytes % Monocytes % (Manual) 12 H D Eosinophils % Eosinophils % (Manual) 2.0 D Basophils % Nucleated RBC % Metamyelocytes 3 H D Platelet Estimate Decreased PT with INR INR PTT (Actin FS) Fibrinogen Anticoagulation Therapy Puncture Site ABG pH ABG pCO2 at Pt Temp ABG pO2 at Pt Temp ABG HCO3 ABG O2 Sat (Measured) ABG O2 Content ABG Base Excess Darell Test O2 Delivery Device Oxygen Flow Rate Vent Mode Vent Rate Mechanical Rate PEEP Pressure Support Vent Sodium Potassium Chloride Carbon Dioxide Anion Gap BUN Creatinine Est GFR (CKD-EPI)AfAm Est GFR (CKD-EPI)NonAf POC Glucometer 321 294 Random Glucose Calcium Phosphorus Magnesium Total Bilirubin AST ALT Alkaline Phosphatase Total Protein Albumin 05/05/19 05/05/19 05/05/19 05:00 05:00 05:00 WBC 24.1 H RBC 3.44 L Hgb 9.8 L Hct 28.4 L MCV 82.7 MCH 28.4 MCHC 34.3 RDW 14.7 Plt Count 71 L MPV 10.6 Absolute Neuts (auto) 15.4 H Total Counted Neutrophils % 64.1 D Neutrophils % (Manual) Band Neutrophils % Lymphocytes % 7.3 L Lymphocytes % (Manual) Monocytes % 27.4 H D Monocytes % (Manual) Eosinophils % 1.0 D Eosinophils % (Manual) Basophils % 0.2 Nucleated RBC % 0 Metamyelocytes Platelet Estimate PT with INR 16.10 H INR 1.36 H PTT (Actin FS) 44.8 H Fibrinogen Anticoagulation Therapy Puncture Site ABG pH ABG pCO2 at Pt Temp ABG pO2 at Pt Temp ABG HCO3 ABG O2 Sat (Measured) ABG O2 Content ABG Base Excess Darell Test O2 Delivery Device Oxygen Flow Rate Vent Mode Vent Rate Mechanical Rate PEEP Pressure Support Vent Sodium 127 L Potassium 4.3 Chloride 95 L Carbon Dioxide 20 L Anion Gap 12 BUN 57.9 H Creatinine 4.4 H Est GFR (CKD-EPI)AfAm 15.30 Est GFR (CKD-EPI)NonAf 13.20 POC Glucometer Random Glucose 345 H Calcium 7.1 L Phosphorus 4.8 Magnesium 1.8 Total Bilirubin 3.7 H AST 213 H ALT 723 H Alkaline Phosphatase 148 H Total Protein 4.0 L Albumin 1.3 L 05/05/19 05/05/19 05/05/19 05:00 05:55 06:04 WBC RBC Hgb Hct MCV MCH MCHC RDW Plt Count MPV Absolute Neuts (auto) Total Counted Neutrophils % Neutrophils % (Manual) Band Neutrophils % Lymphocytes % Lymphocytes % (Manual) Monocytes % Monocytes % (Manual) Eosinophils % Eosinophils % (Manual) Basophils % Nucleated RBC % Metamyelocytes Platelet Estimate PT with INR INR PTT (Actin FS) Fibrinogen 443.0 Anticoagulation Therapy No Result Required. Puncture Site Right radial ABG pH 7.40 ABG pCO2 at Pt Temp 29.5 L ABG pO2 at Pt Temp 77.7 L ABG HCO3 18.0 L ABG O2 Sat (Measured) 94.8 L ABG O2 Content 13.6 ABG Base Excess -5.4 L Darell Test Positive O2 Delivery Device Vent Oxygen Flow Rate 40% Vent Mode A/c Vent Rate 14 Mechanical Rate No Result Required. PEEP 5.0 Pressure Support Vent 500 Sodium Potassium Chloride Carbon Dioxide Anion Gap BUN Creatinine Est GFR (CKD-EPI)AfAm Est GFR (CKD-EPI)NonAf POC Glucometer 281 Random Glucose Calcium Phosphorus Magnesium Total Bilirubin AST ALT Alkaline Phosphatase Total Protein Albumin Active Medications Generic Name Dose Route Start Last Admin Trade Name Freq PRN Reason Stop Dose Admin Heparin Sodium (Porcine) 5,000 unit 05/02/19 22:00 05/05/19 06:23 Heparin - SQ 5,000 unit TID MARYSE Administration Piperacillin Sod/Tazobactam 50 mls @ 100 mls/hr 04/30/19 18:00 05/05/19 02:19 Sod 3.375 gm/ Dextrose IVPB 100 mls/hr Q8H-IV MARYSE Administration Protocol Fluconazole 100 mls @ 100 mls/hr 04/30/19 18:00 05/04/19 11:39 Diflucan 200 Mg/Ns Premixed Ivpb - IVPB 100 mls/hr DAILY MARYSE Administration Norepinephrine Bitartrate 4, 500 mls @ 37.5 mls/hr 04/30/19 19:30 05/05/19 05 :59 000 mcg/ Dextrose IV 5 mcg/min TITR MARYSE 37.5 mls/hr Titration Protocol 5 MCG/MIN Fentanyl 500 mcg/ Dextrose 100 mls @ 5 mls/hr 05/01/19 12:15 05/04/19 15:01 IVPB Not Given TITR MARYSE Protocol 25 MCG/HR Propofol 1,000,000 mcg in 100 mls @ 6.222 mls/hr 05/02/19 12:00 05/05/19 04: 00 Diprivan - IVPB 15 mcg/kg/min TITR MARYSE 9.333 mls/hr Titration Protocol 10 MCG/KG/MIN Pantoprazole Sodium 80 mg/ 100 mls @ 10 mls/hr 05/04/19 06:15 05/05/19 00:00 Sodium Chloride IVPB 05/07/19 06:06 10 mls/hr Q10H MARYSE Administration 8 MG/HR Insulin Aspart 1 vial 05/01/19 07:00 05/05/19 06:23 Novolog Vial Sliding Scale - SQ 6 units TIDAC MARYSE Administration Protocol Mupirocin 1 applic 04/30/19 22:00 05/04/19 21:28 Bactroban Ointment (For Decolonization) - NS 05/05/19 21:59 1 applic BID MARYSE Administration Ondansetron HCl 4 mg 04/30/19 16:45 Zofran Injection IVPUSH Q6H PRN NAUSEA AND/OR VOMITING CBC, BMP 05/05/19 05:00 05/05/19 05:00 ASSESSMENT/PLAN: The pt is a 64 yo m w/ PMH MR, HTN, DM, b/l LE swelling who was BIBEMS for a 1 day h/o Hypotension (70/51), lethargy and tachycardia. Patient transferred to ICU intubated for post op management. #Septich shock 2/2 perforated duodenal ulcer (POD# 5) S/P lap choly repair # peritonitis * NGT place surgically. per surgery NGT SHOULD NOT BE REMOVED OR MANIPULATED for 1 week * start TPN tomorrow , replace central line by ICU * cont protonix GTT * s/p flagyl in ED * placed on zosyn and fluconazole post op per ID , cont for now if plt cont to drop can switch to anotehr abx per ID * if cx negative thus far * BP stable on levo GTT , off vaso GTT * ICU monitor IV fluids , pressors manage by ICU * mechanical ventilation maintain o2 sat > 90 * monitor drain out put * monitor urine out put # acute Hypoxic respiratory failure due to septic shock on mechanical ventilation per ICU # Hyperkalemia , resolved # Hypervolemic Hyponatremia 127 today decrease fluids IV , and give lasix 40 IV push once , assess daily , give another 60 lasix twice today # DOMENIC on CKD likely 2/2 septic shock , nephrology consulted , avoid nephrotoxic agents # anemia and thrombocytopenia likely due to sepsis , monitor cbc daily , on Hep sc for prophylaxis , HIT pending , zosyn can cause thrombocytopenai as well # metabolic acidosis; patient had a lactic acidosis pre op * dc NS @ 75 # transaminitis 2/2 septic sock , trend daily , avoid hepatotoxic agents # mental disability #GI and DVT prophylaxis # monitor in ICU prognosis guarded Visit type - Emergency Visit Emergency Visit: Yes ED Registration Date: 04/30/19 Care time: The patient presented to the Emergency Department on the above date and was hospitalized for further evaluation of their emergent condition. - New Patient This patient is new to me today: No - Critical Care Critical Care patient: Yes Total Critical Care Time (in minutes): 45 Critical Care Statement: The care of this patient involved high complexity decision making to prevent further life threatening deterioration of the patient 's condition and/or to evaluate & treat vital organ system(s) failure or risk of failure. ATTENDING PHYSICIAN STATEMENT I saw and evaluated the patient. I reviewed the resident's note and discussed the case with the resident. I agree with the resident's findings and plan as documented. SUBJECTIVE: OBJECTIVE: ASSESSMENT AND PLAN:
[2019-05-05] MEDS ORDERED: PROPOFOL 1,000,000 MCG/100 ML VIAL ONE (07:52)
--- NOTE | 2019-05-05 08:00 | PN ---
Progress Note (short form) - Note Progress Note: GENERAL SURGERY POD #5 s/p Exlap, Jack patch repair for perforated DU Remains intubated/mechanically vented. Still on pressor support but weaning down. Last Vital Signs Temp Pulse Resp BP Pulse Ox 98.4 F 86 19 122/62 100 05/05/19 06:00 05/05/19 06:00 05/05/19 06:00 05/05/19 06:00 05/04/19 21:17 CBC, BMP 05/05/19 05:00 05/05/19 05:00 Blood Type Blood Type A POSITIVE 04/30/19 14:10 INR, PTT INR 1.36 (0.83-1.09) H 05/05/19 05:00 Fibrinogen 443.0 mg/dL (238-498) 05/05/19 05:00 Drain output 24/hrs 05/04/19 05/04/19 05/04/19 05/04/19 05/04/19 05/04/19 05/04/19 05/05/19 03:00 06:46 18:40 18:57 19:26 20:50 22:32 02:30 06:33 ASHLEY 100 60 500 210 135 185 180 Demarco 250 350 250 200 500 GEN: Anisarca. sedated/intubated/vented ENT: Rt IJ TLC in use. NGT in place ABD: obese habitus. soft, dressing c/d/i :scrotal edema. Demarco to gravity UE: Left radial A-line LE: SCDs bilat Problem List - Problems (1) Perforated duodenal ulcer Assessment/Plan: POD #5 s/p Exlap, Jack patch repair for perforated DU. Remains critically ill. On pressor support but weaning down. 1. Cont NGT to LWCS. DO NOT FLUSH OR MANIPULATE TUBE. 2. Strict I/Os 3. Record demarco, ngt, ASHLEY output 4. ID follow-up / Zosyn 5. CBC, BMP and correct elytes PRN 6. Protonix drip 7.DVT PPx 8. Cont ICU management 9. Scrotal elevation 10. Nutrition consult as he needs TPN Prognosis remains guarded. Above plan discussed with Dr. Miranda and agrees Code(s): K26.5 - CHRONIC OR UNSPECIFIED DUODENAL ULCER WITH PERFORATION (2) DOMENIC (acute kidney injury) Code(s): N17.9 - ACUTE KIDNEY FAILURE, UNSPECIFIED (3) Sepsis Code(s): A41.9 - SEPSIS, UNSPECIFIED ORGANISM (4) Shock liver Code(s): K72.00 - ACUTE AND SUBACUTE HEPATIC FAILURE WITHOUT COMA
[2019-05-05] MEDS: PROPOFOL 1,000,000 MCG/100 ML VIAL IVPB SCH ×2 (08:32→12:34)
--- NOTE | 2019-05-05 09:34 | PN ---
Physical Exam: SUBJECTIVE: Patient seen and examined No overnight events. s/p 2 doses of 40iv lasix yesterday. Continued ASHLEY output 500-1000cc/day. UOP improving ~1L qd OBJECTIVE: Vital Signs Period Temp Pulse Resp BP Sys/Booth Pulse Ox Last 24 Hr 97.4 F-98.7 F 79-105 16-22 112-131/57-79 98-100 GENERAL: intubated and sedated on propofol HEAD: Normal with no signs of trauma. EYES: sclera anicteric, conjunctiva clear. No ptosis. ENT: Ears normal, nares patent, moist mucous membranes. NGT ~60cm at nares NECK: Trachea midline, full range of motion, supple. LUNGS: coarse b/l BS to auscultation bilaterally. Vent 500, 14, 5, 50% HEART: Regular rate and rhythm, S1, S2 without murmur, rub or gallop. ABDOMEN: Soft, nontender, nondistended, hypoactive bowel sounds, surgical dressings overlying mid abd. ASHLEY with SS drainage : edematous scrotum EXTREMITIES: 2+ pulses, warm, well-perfused, nonpitting edema. NEUROLOGICAL: sedated on propofol SKIN: Warm, dry, normal turgor, no rashes or lesions noted Laboratory Results - last 24 hr 05/04/19 05/04/19 05/04/19 05:35 11:48 17:13 WBC RBC Hgb Hct MCV MCH MCHC RDW Plt Count MPV Absolute Neuts (auto) Total Counted 100 Neutrophils % Neutrophils % (Manual) 49.0 D Band Neutrophils % 27.0 Lymphocytes % Lymphocytes % (Manual) 7.0 L D Monocytes % Monocytes % (Manual) 12 H D Eosinophils % Eosinophils % (Manual) 2.0 D Basophils % Nucleated RBC % Metamyelocytes 3 H D Platelet Estimate Decreased PT with INR INR PTT (Actin FS) Fibrinogen Anticoagulation Therapy Puncture Site ABG pH ABG pCO2 at Pt Temp ABG pO2 at Pt Temp ABG HCO3 ABG O2 Sat (Measured) ABG O2 Content ABG Base Excess Darell Test O2 Delivery Device Oxygen Flow Rate Vent Mode Vent Rate Mechanical Rate PEEP Pressure Support Vent Sodium Potassium Chloride Carbon Dioxide Anion Gap BUN Creatinine Est GFR (CKD-EPI)AfAm Est GFR (CKD-EPI)NonAf POC Glucometer 321 294 Random Glucose Calcium Phosphorus Magnesium Total Bilirubin AST ALT Alkaline Phosphatase Total Protein Albumin 05/05/19 05/05/19 05/05/19 05:00 05:00 05:00 WBC 24.1 H RBC 3.44 L Hgb 9.8 L Hct 28.4 L MCV 82.7 MCH 28.4 MCHC 34.3 RDW 14.7 Plt Count 71 L MPV 10.6 Absolute Neuts (auto) 15.4 H Total Counted Neutrophils % 64.1 D Neutrophils % (Manual) Band Neutrophils % Lymphocytes % 7.3 L Lymphocytes % (Manual) Monocytes % 27.4 H D Monocytes % (Manual) Eosinophils % 1.0 D Eosinophils % (Manual) Basophils % 0.2 Nucleated RBC % 0 Metamyelocytes Platelet Estimate PT with INR 16.10 H INR 1.36 H PTT (Actin FS) 44.8 H Fibrinogen Anticoagulation Therapy Puncture Site ABG pH ABG pCO2 at Pt Temp ABG pO2 at Pt Temp ABG HCO3 ABG O2 Sat (Measured) ABG O2 Content ABG Base Excess Darell Test O2 Delivery Device Oxygen Flow Rate Vent Mode Vent Rate Mechanical Rate PEEP Pressure Support Vent Sodium 127 L Potassium 4.3 Chloride 95 L Carbon Dioxide 20 L Anion Gap 12 BUN 57.9 H Creatinine 4.4 H Est GFR (CKD-EPI)AfAm 15.30 Est GFR (CKD-EPI)NonAf 13.20 POC Glucometer Random Glucose 345 H Calcium 7.1 L Phosphorus 4.8 Magnesium 1.8 Total Bilirubin 3.7 H AST 213 H ALT 723 H Alkaline Phosphatase 148 H Total Protein 4.0 L Albumin 1.3 L 05/05/19 05/05/19 05/05/19 05:00 05:55 06:04 WBC RBC Hgb Hct MCV MCH MCHC RDW Plt Count MPV Absolute Neuts (auto) Total Counted Neutrophils % Neutrophils % (Manual) Band Neutrophils % Lymphocytes % Lymphocytes % (Manual) Monocytes % Monocytes % (Manual) Eosinophils % Eosinophils % (Manual) Basophils % Nucleated RBC % Metamyelocytes Platelet Estimate PT with INR INR PTT (Actin FS) Fibrinogen 443.0 Anticoagulation Therapy No Result Required. Puncture Site Right radial ABG pH 7.40 ABG pCO2 at Pt Temp 29.5 L ABG pO2 at Pt Temp 77.7 L ABG HCO3 18.0 L ABG O2 Sat (Measured) 94.8 L ABG O2 Content 13.6 ABG Base Excess -5.4 L Darell Test Positive O2 Delivery Device Vent Oxygen Flow Rate 40% Vent Mode A/c Vent Rate 14 Mechanical Rate No Result Required. PEEP 5.0 Pressure Support Vent 500 Sodium Potassium Chloride Carbon Dioxide Anion Gap BUN Creatinine Est GFR (CKD-EPI)AfAm Est GFR (CKD-EPI)NonAf POC Glucometer 281 Random Glucose Calcium Phosphorus Magnesium Total Bilirubin AST ALT Alkaline Phosphatase Total Protein Albumin Active Medications Generic Name Dose Route Start Last Admin Trade Name Freq PRN Reason Stop Dose Admin Heparin Sodium (Porcine) 5,000 unit 05/02/19 22:00 05/05/19 06:23 Heparin - SQ 5,000 unit TID MARYSE Administration Piperacillin Sod/Tazobactam 50 mls @ 100 mls/hr 04/30/19 18:00 05/05/19 02:19 Sod 3.375 gm/ Dextrose IVPB 100 mls/hr Q8H-IV MARYSE Administration Protocol Fluconazole 100 mls @ 100 mls/hr 04/30/19 18:00 05/04/19 11:39 Diflucan 200 Mg/Ns Premixed Ivpb - IVPB 100 mls/hr DAILY MARYSE Administration Norepinephrine Bitartrate 4, 500 mls @ 37.5 mls/hr 04/30/19 19:30 05/05/19 05 :59 000 mcg/ Dextrose IV 5 mcg/min TITR MARYSE 37.5 mls/hr Titration Protocol 5 MCG/MIN Fentanyl 500 mcg/ Dextrose 100 mls @ 5 mls/hr 05/01/19 12:15 05/04/19 15:01 IVPB Not Given TITR MARYSE Protocol 25 MCG/HR Propofol 1,000,000 mcg in 100 mls @ 6.222 mls/hr 05/02/19 12:00 05/05/19 08: 32 Diprivan - IVPB 15 mcg/kg/min TITR MARYSE 9.333 mls/hr Administration Protocol 10 MCG/KG/MIN Pantoprazole Sodium 80 mg/ 100 mls @ 10 mls/hr 05/04/19 06:15 05/05/19 00:00 Sodium Chloride IVPB 05/07/19 06:06 10 mls/hr Q10H MARYSE Administration 8 MG/HR Insulin Aspart 1 vial 05/01/19 07:00 05/05/19 06:23 Novolog Vial Sliding Scale - SQ 6 units TIDAC MARYSE Administration Protocol Mupirocin 1 applic 04/30/19 22:00 02/17/20 21:28 Bactroban Ointment (For Decolonization) - NS 05/05/19 21:59 1 applic BID MARYSE Administration Ondansetron HCl 4 mg 04/30/19 16:45 Zofran Injection IVPUSH Q6H PRN NAUSEA AND/OR VOMITING ASSESSMENT/PLAN: Patient is a 64 year old male with PMH of MR, HTN, DM, b/l LE swelling who was BIBEMS for a 1 day h/o Hypotension (70/51), lethargy and tachycardia, found to have free air under the diaphragm s/p omental patch for duodenal perforation POD5. Post-op admission to ICU intubated for HD monitoring. Neuro -Intubated and sedated on propofol; will maintain sedation -will start sedation vacation today Pulmonary -Intubated -Vent: 500, 14, 6, 50% -CXR(04/30/19): left lower half of chest w/ opacity -ABG(05/01/19): 7.25/24.5/114/10.3/97 -Weaning trials once stable Cardio -Hypotension --likely 2/2 septic shock -On levophed, titrate down as tolerated -IVF NS 75cc/hr for hypoNa and resus -CVP goal 8-12, fluids currently held -DC A-line for inaccurate readings GI -Perforated duodenum --possibly 2/2 freq NSAID usage vs H pylori -Transamnitis --likely shocked liver, levels improving daily ast/alt 213/723 -Lactic Acid improvin/15 3.0 -S/p Ex-Lap w/ Jack Patch(Perlita, 04/30/19) -NGT place surgically. per surgery NGT SHOULD NOT BE REMOVED OR MANIPULATED for 1 week -Protonix GTT -Abx regimen: -S/p flagyl in ED -Zosyn and fluconazole -If intra op cultures negative for yeast, ok to DC fluconazole per surgery -Dr Saldaña requesting dietary consult for TPN given continued guarded status Renal #DOMENIC --likely 2/2 cardiorenal syndrome - Cr 1.4, 1.1, 1.9, 2.3 --> 4.1 today 4.4 - post-op ABG shows metabolic acidosis; patient had a lactic acidosis pre op - Nephro(Lesley) consult: --lasix trial - holding fluids - s/p lasix 40mg IVP x4 days; will give 60mg iv lasix x2 today Heme # thrombocytopenia > Plt: 211, 179, 156, 102, 89, 77, 76, 71 today - HIT panel --pending FEN -holding fluids -dietary consult for TPN PPX -Protonix gtt -holding all DVT prolyphaxis given Cr and possible HIIT Dispo -ICU monitoring; will consider weaning later this week Visit type - Emergency Visit Emergency Visit: No - New Patient This patient is new to me today: No - Critical Care Critical Care patient: Yes Total Critical Care Time (in minutes): 40 Critical Care Statement: The care of this patient involved high complexity decision making to prevent further life threatening deterioration of the patient 's condition and/or to evaluate & treat vital organ system(s) failure or risk of failure. ATTENDING PHYSICIAN STATEMENT I saw and evaluated the patient. I reviewed the resident's note and discussed the case with the resident. I agree with the resident's findings and plan as documented. SUBJECTIVE: OBJECTIVE: ASSESSMENT AND PLAN:
--- NOTE | 2019-05-05 09:55 | PN ---
Teaching Attending Note Name of Resident: Vidal Aguilar ATTENDING PHYSICIAN STATEMENT I saw and evaluated the patient. I reviewed the resident's note and discussed the case with the resident. I agree with the resident's findings and plan as documented. SUBJECTIVE: OBJECTIVE: Vital Signs Temperature 98.4 F 05/05/19 06:00 Pulse Rate 82 05/05/19 08:00 Respiratory Rate 19 05/05/19 08:00 Blood Pressure 125/62 05/05/19 08:00 O2 Sat by Pulse Oximetry (%) 100 05/05/19 08:00 General: Sedated for ventilator not in acute distress. HEENT; mucous membranes moist, no anemia, no jaundice, PERRLA, no nystagmus Neck: No JVD, supple, no bruit, thyroid palpably normal, normal carotid pulsations. Chest: Nontender, bilateral basal rales. CVS: S1-S2 regular/irregular no murmur/gallop/rub Abdomen: Nondistended, soft, bowel sounds present. 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 motor sensory deficit CBC, BMP 05/05/19 05:00 05/05/19 05:00 Active Medications Heparin Sodium (Porcine) (Heparin -) 5,000 unit SQ TID MARYSE Last Admin: 05/05/19 06:23 Dose: 5,000 unit Piperacillin Sod/Tazobactam (Sod postoperative day fifth .375 gm/ Dextrose) 50 mls @ 100 mls/hr IVPB Q8H-IV MARYSE; Protocol Last Admin: 05/05/19 02:19 Dose: 100 mls/hr Fluconazole (Diflucan 200 Mg/Ns Premixed Ivpb -) 100 mls @ 100 mls/hr IVPB DAILY MARYSE Last Admin: 05/04/19 11:39 Dose: 100 mls/hr Norepinephrine Bitartrate 4, (000 mcg/ Dextrose) 500 mls @ 37.5 mls/hr IV TITR MARYSE; Protocol Last Titration: 05/05/19 05:59 Dose: 5 mcg/min, 37.5 mls/hr Fentanyl 500 mcg/ Dextrose 100 mls @ 5 mls/hr IVPB TITR MARYSE; Protocol Last Admin: 05/04/19 15:01 Dose: Not Given Propofol (Diprivan -) 1,000,000 mcg in 100 mls @ 6.222 mls/hr IVPB TITR MARYES; Protocol Last Admin: 05/05/19 08:32 Dose: 15 mcg/kg/min, 9.333 mls/hr Pantoprazole Sodium 80 mg/ (Sodium Chloride) 100 mls @ 10 mls/hr IVPB Q10H MARYSE Stop: 05/07/19 06:06 Last Admin: 05/05/19 00:00 Dose: 10 mls/hr Insulin Aspart (Novolog Vial Sliding Scale -) 1 vial SQ TIDAC [facility]; Protocol Last Admin: 05/05/19 06:23 Dose: 6 units Mupirocin (Bactroban Ointment (For Decolonization) -) 1 applic NS BID MARYSE Stop: 05/05/19 21:59 Last Admin: 05/04/19 21:28 Dose: 1 applic Ondansetron HCl (Zofran Injection) 4 mg IVPUSH Q6H PRN PRN Reason: NAUSEA AND/OR VOMITING ASSESSMENT AND PLAN:64 years old man history of mental retardation,, HTN,T2DM, b /l LE swelling who was BIBEMS for a 1 day h/o Hypotension (70/51), lethargy and tachycardia. Patient transferred to ICU intubated for post op management. Patient is on pressures, developed multiorgan failure with thrombocytopenia, POD #5 s/p Exlap, Jack patch repair for perforated DU. Remains critically ill. On pressor support but weaning down Impression: Sepsis due to perforated duodenal ulcer status post exploratory laparotomy and repair for perforated duodenal ulcer. Problem List - Problems (1) Sepsis Assessment/Plan: Due to perforated duodenal ulcer continue current antibiotics and pressures management as per critical care. Problems reviewed: Yes Code(s): A41.9 - SEPSIS, UNSPECIFIED ORGANISM (2) Perforated duodenal ulcer Assessment/Plan: POD #5 s/p Exlap, Jack patch repair for perforated DU. Remains critically ill. On pressor support but weaning down Problems reviewed: Yes Code(s): K26.5 - CHRONIC OR UNSPECIFIED DUODENAL ULCER WITH PERFORATION (3) DOMENIC (acute kidney injury) Assessment/Plan: Due to sepsis multiorgan failure follow-up urine output, nephrology recommendations and BMP daily Problems reviewed: Yes Code(s): N17.9 - ACUTE KIDNEY FAILURE, UNSPECIFIED (4) Anasarca Assessment/Plan: Due to hypoproteinemia ICU team is considering TPN Problems reviewed: Yes Code(s): R60.1 - GENERALIZED EDEMA (5) Thrombocytopenia Assessment/Plan: Due to sepsis, can be drug-induced at present platelet count is 70 1K monitor platelet count. Heparin on hold Heparin antibody sent Problems reviewed: Yes Code(s): D69.6 - THROMBOCYTOPENIA, UNSPECIFIED (6) Anemia Assessment/Plan: H&H is stable to improved Problems reviewed: Yes Code(s): D64.9 - ANEMIA, UNSPECIFIED
[2019-05-05] MEDS: FLUCONAZOLE 200 MG/NS 100 ML IVPB SCH (09:58)
[2019-05-05] MEDS: MUPIROCIN 2% TOPICAL OINTMENT FOR DECOLONIZATION NS SCH (10:00)
[2019-05-05] MEDS: PANTOPRAZOLE SODIUM 80 MG in SODIUM CHLORIDE 100 ML IVPB SCH ×4 (10:01→19:49)
[2019-05-05 10:17] LABS: ANISOCYTOSIS 0; MACROCYTOSIS 0; PLATELET ESTIMATE DECREASED
--- NOTE | 2019-05-05 12:01 | PN ---
Teaching Attending Note Name of Resident: Karla Billingsley ATTENDING PHYSICIAN STATEMENT I saw and evaluated the patient. I reviewed the resident's note and discussed the case with the resident. I agree with the resident's findings and plan as documented. SUBJECTIVE: Pt seen and examined in the ICU. Remains intubated, sedated on levophed gtt. No fevers overnight. Better urine output with lasix. Still with significant drainage from ASHLEY. OBJECTIVE: Vital Signs Period Temp Pulse Resp BP Sys/Booth Pulse Ox Last 24 Hr 97.4 F-98.7 F 80-105 16-22 112-131/57-73 98-100 Intake & Output 05/02/19 05/03/19 05/04/19 05/05/19 23:59 23:59 23:59 23:59 Intake Total 3084 3793 5754 1037 Output Total 330 1160 2055 1065 Balance 2754 2633 3699 -28 Weight 103.7 kg 107.501 kg 108.998 kg 106.458 kg Gen: intubated, sedated Heart: RRR Lung: scattered rhonchi Abd: soft, ASHLEY with serosanguinous fluid Ext: + edema CBC, BMP 05/05/19 05:00 05/05/19 05:00 Active Medications Furosemide (Lasix Injection -) 60 mg IVPUSH BID MARYSE Stop: 05/06/19 00:00 Heparin Sodium (Porcine) (Heparin -) 5,000 unit SQ TID MARYSE Last Admin: 05/05/19 06:23 Dose: 5,000 unit Piperacillin Sod/Tazobactam (Sod 3.375 gm/ Dextrose) 50 mls @ 100 mls/hr IVPB Q8H-IV MARYSE; Protocol Last Admin: 05/05/19 09:58 Dose: 100 mls/hr Fluconazole (Diflucan 200 Mg/Ns Premixed Ivpb -) 100 mls @ 100 mls/hr IVPB DAILY MARYSE Last Admin: 05/05/19 09:58 Dose: 100 mls/hr Norepinephrine Bitartrate 4, (000 mcg/ Dextrose) 500 mls @ 37.5 mls/hr IV TITR MARYSE; Protocol Last Titration: 05/05/19 05:59 Dose: 5 mcg/min, 37.5 mls/hr Fentanyl 500 mcg/ Dextrose 100 mls @ 5 mls/hr IVPB TITR MARYSE; Protocol Last Admin: 05/04/19 15:01 Dose: Not Given Propofol (Diprivan -) 1,000,000 mcg in 100 mls @ 6.222 mls/hr IVPB TITR [facility]; Protocol Last Admin: 05/05/19 08:32 Dose: 15 mcg/kg/min, 9.333 mls/hr Pantoprazole Sodium 80 mg/ (Sodium Chloride) 100 mls @ 10 mls/hr IVPB Q10H [facility] Stop: 05/07/19 06:06 Last Admin: 05/05/19 10:01 Dose: 10 mls/hr Insulin Aspart (Novolog Vial Sliding Scale -) 1 vial SQ TIDAC [facility]; Protocol Last Admin: 05/05/19 11:48 Dose: 6 units Mupirocin (Bactroban Ointment (For Decolonization) -) 1 applic NS BID [facility] Stop: 05/05/19 21:59 Last Admin: 05/05/19 10:00 Dose: 1 applic Ondansetron HCl (Zofran Injection) 4 mg IVPUSH Q6H PRN PRN Reason: NAUSEA AND/OR VOMITING ASSESSMENT AND PLAN: Acute Hypoxic Respiratory Failure Perforated Duodenal Ulcer s/p Ex-lap/Jack Patch Repair Peritonitis Septic Shock Acute Kidney Injury Elevated LFTs likely Ischemic Injury Hyponatremia Volume Overload Anemia Thrombocytopenia Mental Retardation HTN DM - continue antibiotics, antifungals - monitor drain output - continue lasix - monitor urine output, creatinine - titrate pressors to maintain MAP >65 - keep CVP 8-12 - monitor CBC - taper FiO2 to keep SpO2 >90% - protonix - monitor WBC trend - start TPN today - DVT/GI prophylaxis - continue ICU monitoring - prognosis guarded critical care time spent in reviewing chart, evaluating patient and formulating plan 35 min
[2019-05-05] MEDS ORDERED: CALCIUM GLUCONATE 10% - 1,000 MG/10 ML VIAL IVPUSH ONE (12:08)
[2019-05-05] MEDS ORDERED: MAGNESIUM SULF 50% (8.12 MEQ/2 ML-1 GM VIAL) IVPB ONE (12:18)
[2019-05-05] MEDS: FUROSEMIDE 40 MG/4 ML INJECTABLE VIAL IVPUSH SCH ×2 (12:20→21:58)
[2019-05-05] MEDS: FENTANYL INJECTION 500 MCG in DEXTROSE 5%-WATER - 90 ML IVPB SCH (12:33)
--- NOTE | 2019-05-05 15:02 | PN ---
Progress Note (short form) - Note Progress Note: remains intubated sedation d/rajat this am off pressors still with significant LEX drainage Vital Signs Period Temp Pulse Resp BP Sys/Booth Pulse Ox Last 24 Hr 97.4 F-98.7 F 80-105 16-22 112-131/57-73 98-100 cor-rrr lungs decreased bs at bases abd soft, +lex drain +packing +scrotal edema +edema bilateral LE +demarco CBC, BMP 05/05/19 05:00 05/05/19 05:00 Microbiology 04/30/19 09:00 Blood - Peripheral Venous Blood Culture - Final NO GROWTH AFTER 5 DAYS INCUBATION 04/30/19 09:00 Blood - Peripheral Venous Blood Culture - Final NO GROWTH AFTER 5 DAYS INCUBATION 04/30/19 14:28 Body Fluid - Other Gram Stain - Final 04/30/19 14:28 Body Fluid - Other Body Fluid Culture - Final NO GROWTH OF AEROBIC ORGANISMS AFTER 48 HOURS INCUBATION 04/30/19 14:28 Body Fluid - Other Anaerobic Culture - Final NO ANAEROBES WERE ISOLATED 04/30/19 14:38 Abdomen Gram Stain - Final 04/30/19 12:30 Urine - Urine Clean Catch Urine Culture - Final NO GROWTH OBTAINED a/p POD #5 sepsis secondary to perforated viscus s/p repair of perforated bowel domenic secondary to sepsis shock liver respiratory failure- post op thrombocytopenia secondary to sepsis operative cultures negative d/c diflucan continue zosyn monitor renal function lfts improving platelets stabilizing pressors d/rajat today Problem List - Problems (1) Sepsis Code(s): A41.9 - SEPSIS, UNSPECIFIED ORGANISM (2) Bowel perforation Code(s): K63.1 - PERFORATION OF INTESTINE (NONTRAUMATIC) (3) DOMENIC (acute kidney injury) Code(s): N17.9 - ACUTE KIDNEY FAILURE, UNSPECIFIED (4) Shock liver Code(s): K72.00 - ACUTE AND SUBACUTE HEPATIC FAILURE WITHOUT COMA
--- NOTE | 2019-05-05 16:34 | PN ---
Progress Note, Physician History of Present Illness: Pt seen and examined at bedside. He remains in the ICU. He remains intubated. - Current Medication List Current Medications: Active Medications Furosemide (Lasix Injection -) 60 mg IVPUSH BID [facility] Stop: 05/06/19 00:00 Last Admin: 05/05/19 12:20 Dose: 60 mg Heparin Sodium (Porcine) (Heparin -) 5,000 unit SQ TID MARYSE Last Admin: 05/05/19 06:23 Dose: 5,000 unit Piperacillin Sod/Tazobactam (Sod 3.375 gm/ Dextrose) 50 mls @ 100 mls/hr IVPB Q8H-IV MARYSE; Protocol Last Admin: 05/05/19 09:58 Dose: 100 mls/hr Fluconazole (Diflucan 200 Mg/Ns Premixed Ivpb -) 100 mls @ 100 mls/hr IVPB DAILY [facility] Last Admin: 05/05/19 09:58 Dose: 100 mls/hr Norepinephrine Bitartrate 4, (000 mcg/ Dextrose) 500 mls @ 37.5 mls/hr IV TITR MARYSE; Protocol Last Titration: 05/05/19 14:59 Dose: 0 mcg/min, 0 mls/hr Fentanyl 500 mcg/ Dextrose 100 mls @ 5 mls/hr IVPB TITR MARYSE; Protocol Last Admin: 05/05/19 12:33 Dose: Not Given Propofol (Diprivan -) 1,000,000 mcg in 100 mls @ 6.222 mls/hr IVPB TITR MARYSE; Protocol Last Admin: 05/05/19 12:34 Dose: Not Given Pantoprazole Sodium 80 mg/ (Sodium Chloride) 100 mls @ 10 mls/hr IVPB Q10H [facility] Stop: 05/07/19 06:06 Last Admin: 05/05/19 12:30 Dose: Not Given Insulin Aspart (Novolog Vial Sliding Scale -) 1 vial SQ TIDAC MARYSE; Protocol Last Admin: 05/05/19 11:48 Dose: 6 units Mupirocin (Bactroban Ointment (For Decolonization) -) 1 applic NS BID [facility] Stop: 05/05/19 21:59 Last Admin: 05/05/19 10:00 Dose: 1 applic Ondansetron HCl (Zofran Injection) 4 mg IVPUSH Q6H PRN PRN Reason: NAUSEA AND/OR VOMITING - Objective Vital Signs: Vital Signs Temperature 97.9 F 05/05/19 14:00 Pulse Rate 88 05/05/19 15:00 Respiratory Rate 21 H 05/05/19 15:00 Blood Pressure 117/58 L 05/05/19 15:00 O2 Sat by Pulse Oximetry (%) 100 05/05/19 09:00 Constitutional: Yes: Calm Eyes: Yes: Conjunctiva Clear HENT: Yes: Atraumatic Neck: Yes: Supple Cardiovascular: Yes: S1, S2 Respiratory: Yes: Mechanically Ventilated Gastrointestinal: Yes: Other (dressing in place) Genitourinary: Yes: Banuelos Present, Scrotal Edema Musculoskeletal: Yes: Muscle Weakness Edema: Yes Edema: LUE: 1+, RUE: 1+, LLE: 2+, RLE: 2+ Neurological: Yes: Lethargy Labs: CBC, BMP 05/05/19 05:00 05/05/19 05:00 INR, PTT INR 1.36 (0.83-1.09) H 05/05/19 05:00 Fibrinogen 443.0 mg/dL (238-498) 05/05/19 05:00 Assessment/Plan Current Medications Generic Name Dose Route Start Last Admin Trade Name Freq PRN Reason Stop Dose Admin Furosemide 60 mg 05/05/19 12:00 05/05/19 12:20 Lasix Injection - IVPUSH 05/06/19 00:00 60 mg BID MARYSE Administration Heparin Sodium (Porcine) 5,000 unit 05/02/19 22:00 05/05/19 06:23 Heparin - SQ 5,000 unit TID MARYSE Administration Piperacillin Sod/Tazobactam 50 mls @ 100 mls/hr 04/30/19 18:00 05/05/19 09:58 Sod 3.375 gm/ Dextrose IVPB 100 mls/hr Q8H-IV MARYSE Administration Protocol Fluconazole 100 mls @ 100 mls/hr 04/30/19 18:00 05/05/19 09:58 Diflucan 200 Mg/Ns Premixed Ivpb - IVPB 100 mls/hr DAILY MARYSE Administration Norepinephrine Bitartrate 4, 500 mls @ 37.5 mls/hr 04/30/19 19:30 05/05/19 14 :59 000 mcg/ Dextrose IV 0 mcg/min TITR MARYSE 0 mls/hr Titration Protocol 5 MCG/MIN Fentanyl 500 mcg/ Dextrose 100 mls @ 5 mls/hr 05/01/19 12:15 05/05/19 12:33 IVPB Not Given TITR MARYSE Protocol 25 MCG/HR Propofol 1,000,000 mcg in 100 mls @ 6.222 mls/hr 05/02/19 12:00 05/05/19 12: 34 Diprivan - IVPB Not Given TITR MARYSE Protocol 10 MCG/KG/MIN Pantoprazole Sodium 80 mg/ 100 mls @ 10 mls/hr 05/04/19 06:15 05/05/19 12:30 Sodium Chloride IVPB 05/07/19 06:06 Not Given Q10H MARYSE 8 MG/HR Insulin Aspart 1 vial 05/01/19 07:00 05/05/19 11:48 Novolog Vial Sliding Scale - SQ 6 units TIDAC MARYSE Administration Protocol Mupirocin 1 applic 04/30/19 22:00 05/05/19 10:00 Bactroban Ointment (For Decolonization) - NS 05/05/19 21:59 1 applic BID MARYSE Administration Ondansetron HCl 4 mg 04/30/19 16:45 Zofran Injection IVPUSH Q6H PRN NAUSEA AND/OR VOMITING IMPRESSION DOMENIC septic shock perforated duodenal ulcer fluid overload MR DM possible ckd transamitis hyperkalemia hyponatremia PLAN - cont lasix - pt making urine - sodium improving - 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
[2019-05-05] MEDS ORDERED: MIDAZOLAM IN 0.9 % SOD.CHLORID 100 MG/100 ML PLAST..BAG IVPB SCH (22:45)
[2019-05-06] MEDS: PIPERACILLIN/TAZOB 3.375 GM 3.375 GM in DEXTROSE 5%-WATER - 50 ML IVPB SCH ×2 (02:31→09:17)
[2019-05-06] MEDS: PANTOPRAZOLE SODIUM 80 MG in SODIUM CHLORIDE 100 ML IVPB SCH ×2 (06:21→09:17)
[2019-05-06 06:28] LABS: BASO % 0.2 % (0-2.0); EOS % 1.3 % (0-4.5); HEMATOCRIT 27.1 % (35.4-49); HEMOGLOBIN 9.3 GM/dL (11.7-16.9); LYMPH % 7.9 % (8-40); MCH 28.1 pg (25.7-33.7); MCHC 34.2 g/dl (32.0-35.9); MEAN CELL VOLUME 82.1 fl (80-96); MEAN PLT VOLUME 10.5 fl (7.5-11.1); MONO % 28.3 % (3.8-10.2); NEUT % 62.3 % (42.8-82.8); PLATELET COUNT 66 K/MM3 (134-434); RDW 14.5 % (11.9-15.9); WHITE BLOOD COUNT 25.7 K/mm3 (4.0-10.0)
[2019-05-06] MEDS: INSULIN SLIDING SCALE (NOVOLOG) 1 VIAL SQ SCH ×3 (06:40→17:14)
[2019-05-06] MEDS: FUROSEMIDE 40 MG/4 ML INJECTABLE VIAL IVPUSH SCH ×3 (06:40→17:05)
[2019-05-06 06:46] LABS: ALBUMIN 1.2 g/dl (3.4-5.0); BILIRUBIN,TOTAL 3.7 mg/dL (0.2-1); BLOOD UREA NITROGEN 69.5 mg/dL (7-18); CALCIUM 7.5 mg/dL (8.5-10.1); CREATININE 4.7 mg/dL (0.55-1.3); MAGNESIUM 2.6 mg/dL (1.8-2.4); PHOSPHOROUS 5.9 mg/dL (2.5-4.9); POTASSIUM 4.3 mmol/L (3.5-5.1); TOT PROT 3.8 g/dl (6.4-8.2)
--- NOTE | 2019-05-06 07:20 | PN ---
Physical Exam: SUBJECTIVE: Patient seen and examined at bed side in ICU , intubated sedated on mechanical ventilation and pressors levofedd low dose and PPi drip , propofol on lasix , with good urine out put , ASHELY draineg no fever over night switch abx to ceftriaxon flagyl per ID , DC zosyn due to thrombocytopenia OBJECTIVE: Vital Signs Period Temp Pulse Resp BP Sys/Booth Pulse Ox Last 24 Hr 97.9 F-98.9 F 80-91 18-23 107-128/54-67 98-100 GENERAL: Intubated and sedated. demarco in place , surgey wound cover by Gauze , ASHLEY drainage EYES: Pupils equal, round and sluggishly reactive to light. LUNGS: decrease breath sound at the bases HEART: Regular rate and rhythm, normal S1 and S2 without murmur, rub or gallop. ABDOMEN: Soft, not distended, surgical dressing intact. seracenous drainage LOWER EXTREMITIES: 2+ pulses, warm, well-perfused. No calf tenderness. +1 peripheral edema. NEUROLOGICAL: intubated sedated , PEPRLA swollen scrotum Laboratory Results - last 24 hr 05/05/19 05/05/19 05/05/19 05:00 05:00 11:40 WBC RBC Hgb Hct MCV MCH MCHC RDW Plt Count MPV Absolute Neuts (auto) Neutrophils % Neutrophils % (Manual) 57.7 Band Neutrophils % 5.2 Lymphocytes % Lymphocytes % (Manual) 8.3 Monocytes % Monocytes % (Manual) 26 H D Eosinophils % Eosinophils % (Manual) 1.0 Basophils % Basophils % (Manual) 0.0 Myelocytes % (Man) 1 D Promyelocytes % (Man) 0 Blast Cells % (Manual) 0 Nucleated RBC % Metamyelocytes 0 D Hypochromia 0 Platelet Estimate Decreased Polychromasia 0 Poikilocytosis 0 Anisocytosis 0 Microcytosis 0 Macrocytosis 0 Sodium 127 L Potassium 4.3 Chloride 95 L Carbon Dioxide 20 L Anion Gap 12 BUN 57.9 H Creatinine 4.4 H Est GFR (CKD-EPI)AfAm 15.30 Est GFR (CKD-EPI)NonAf 13.20 POC Glucometer 327 Random Glucose 345 H Calcium 7.1 L Phosphorus 4.8 Magnesium 1.8 Total Bilirubin 3.7 H AST 213 H ALT 723 H Alkaline Phosphatase 148 H Total Protein 4.0 L Albumin 1.3 L Triglycerides 237 H 05/05/19 05/06/19 05/06/19 16:40 05:58 05:58 WBC 25.7 H RBC 3.30 L Hgb 9.3 L Hct 27.1 L MCV 82.1 MCH 28.1 MCHC 34.2 RDW 14.5 Plt Count 66 L MPV 10.5 Absolute Neuts (auto) 16.0 H Neutrophils % 62.3 Neutrophils % (Manual) Band Neutrophils % Lymphocytes % 7.9 L Lymphocytes % (Manual) Monocytes % 28.3 H Monocytes % (Manual) Eosinophils % 1.3 Eosinophils % (Manual) Basophils % 0.2 Basophils % (Manual) Myelocytes % (Man) Promyelocytes % (Man) Blast Cells % (Manual) Nucleated RBC % 0 Metamyelocytes Hypochromia Platelet Estimate Polychromasia Poikilocytosis Anisocytosis Microcytosis Macrocytosis Sodium 131 L Potassium 4.3 Chloride 98 Carbon Dioxide 19 L Anion Gap 15 BUN 69.5 H Creatinine 4.7 H Est GFR (CKD-EPI)AfAm 14.13 Est GFR (CKD-EPI)NonAf 12.19 POC Glucometer 253 Random Glucose 222 H Calcium 7.5 L Phosphorus 5.9 H Magnesium 2.6 H Total Bilirubin 3.7 H AST 97 H ALT 403 H Alkaline Phosphatase 142 H Total Protein 3.8 L Albumin 1.2 L Triglycerides 05/06/19 06:36 WBC RBC Hgb Hct MCV MCH MCHC RDW Plt Count MPV Absolute Neuts (auto) Neutrophils % Neutrophils % (Manual) Band Neutrophils % Lymphocytes % Lymphocytes % (Manual) Monocytes % Monocytes % (Manual) Eosinophils % Eosinophils % (Manual) Basophils % Basophils % (Manual) Myelocytes % (Man) Promyelocytes % (Man) Blast Cells % (Manual) Nucleated RBC % Metamyelocytes Hypochromia Platelet Estimate Polychromasia Poikilocytosis Anisocytosis Microcytosis Macrocytosis Sodium Potassium Chloride Carbon Dioxide Anion Gap BUN Creatinine Est GFR (CKD-EPI)AfAm Est GFR (CKD-EPI)NonAf POC Glucometer 218 Random Glucose Calcium Phosphorus Magnesium Total Bilirubin AST ALT Alkaline Phosphatase Total Protein Albumin Triglycerides Active Medications Generic Name Dose Route Start Last Admin Trade Name Freq PRN Reason Stop Dose Admin Heparin Sodium (Porcine) 5,000 unit 05/02/19 22:00 05/05/19 06:23 Heparin - SQ 5,000 unit TID MARYSE Administration Piperacillin Sod/Tazobactam 50 mls @ 100 mls/hr 04/30/19 18:00 05/06/19 02:31 Sod 3.375 gm/ Dextrose IVPB 100 mls/hr Q8H-IV MARYSE Administration Protocol Fluconazole 100 mls @ 100 mls/hr 04/30/19 18:00 05/05/19 09:58 Diflucan 200 Mg/Ns Premixed Ivpb - IVPB 100 mls/hr DAILY MARYSE Administration Norepinephrine Bitartrate 4, 500 mls @ 37.5 mls/hr 04/30/19 19:30 05/05/19 14 :59 000 mcg/ Dextrose IV 0 mcg/min TITR MARYSE 0 mls/hr Titration Protocol 5 MCG/MIN Fentanyl 500 mcg/ Dextrose 100 mls @ 5 mls/hr 05/01/19 12:15 05/05/19 12:33 IVPB Not Given TITR MARYSE Protocol 25 MCG/HR Propofol 1,000,000 mcg in 100 mls @ 6.222 mls/hr 05/02/19 12:00 05/05/19 12: 34 Diprivan - IVPB Not Given TITR MARYSE Protocol 10 MCG/KG/MIN Pantoprazole Sodium 80 mg/ 100 mls @ 10 mls/hr 05/04/19 06:15 05/06/19 06:21 Sodium Chloride IVPB 05/07/19 06:06 10 mls/hr Q10H MARYSE Administration 8 MG/HR Insulin Aspart 1 vial 05/01/19 07:00 05/05/19 16:43 Novolog Vial Sliding Scale - SQ 6 units TIDAC MARYSE Administration Protocol Ondansetron HCl 4 mg 04/30/19 16:45 Zofran Injection IVPUSH Q6H PRN NAUSEA AND/OR VOMITING CBC, BMP 05/06/19 05:58 05/06/19 05:58 ASSESSMENT/PLAN: The pt is a 64 yo m w/ PMH MR, HTN, DM, b/l LE swelling who was BIBEMS for a 1 day h/o Hypotension (70/51), lethargy and tachycardia. Patient transferred to ICU intubated for post op management. #Septich shock 2/2 perforated duodenal ulcer (POD# 5) S/P lap choly repair # peritonitis * NGT place surgically. per surgery NGT SHOULD NOT BE REMOVED OR MANIPULATED for 1 week * start TPN tomorrow , replace central line by ICU * cont protonix GTT * placed on zosyn and fluconazole post op per ID , switch to cipro/flagyl per ID * gutierrez cx negative thus far * BP stable on levo GTT , off vaso GTT * ICU monitor IV fluids , pressors manage by ICU * mechanical ventilation maintain o2 sat > 90 * monitor drain out put * monitor urine out put # acute Hypoxic respiratory failure due to septic shock on mechanical ventilation per ICU # Hyperkalemia , resolved # Hypervolemic Hyponatremia 127 today decrease fluids IV , and give lasix 40 IV push once , assess daily , give another 60 lasix twice today # DOMENIC on CKD likely 2/2 septic shock , nephrology consulted , avoid nephrotoxic agents # anemia and thrombocytopenia likely due to sepsis , monitor cbc daily , on Hep sc for prophylaxis , HIT pending , zosyn can cause thrombocytopenai as well # metabolic acidosis; patient had a lactic acidosis pre op * dc NS @ 75 # transaminitis 2/2 septic sock , trend daily , avoid hepatotoxic agents , improving # mental disability #GI and DVT prophylaxis # monitor in ICU prognosis guarded Visit type - Emergency Visit Emergency Visit: Yes ED Registration Date: 04/30/19 Care time: The patient presented to the Emergency Department on the above date and was hospitalized for further evaluation of their emergent condition. - New Patient This patient is new to me today: No - Critical Care Critical Care patient: Yes Total Critical Care Time (in minutes): 45 Critical Care Statement: The care of this patient involved high complexity decision making to prevent further life threatening deterioration of the patient 's condition and/or to evaluate & treat vital organ system(s) failure or risk of failure. ATTENDING PHYSICIAN STATEMENT I saw and evaluated the patient. I reviewed the resident's note and discussed the case with the resident. I agree with the resident's findings and plan as documented. SUBJECTIVE: OBJECTIVE: ASSESSMENT AND PLAN:
[2019-05-06] MEDS ORDERED: PIPERACILLIN/TAZOBACTAM 3.375 GM VIAL IVPB ONE (08:58)
[2019-05-06] MEDS ORDERED: DEXTROSE 5%-WATER - 50 ML IVPB ONE (08:58)
--- NOTE | 2019-05-06 10:16 | PN ---
Teaching Attending Note Name of Resident: Vidal Aguilar ATTENDING PHYSICIAN STATEMENT I saw and evaluated the patient. I reviewed the resident's note and discussed the case with the resident. I agree with the resident's findings and plan as documented. SUBJECTIVE: Remained critically sick and intubated under sedation OBJECTIVE: Vital Signs Temperature 98.5 F 05/06/19 06:00 Pulse Rate 89 05/06/19 06:00 Respiratory Rate 21 H 05/06/19 09:00 Blood Pressure 118/67 05/06/19 06:00 O2 Sat by Pulse Oximetry (%) 100 05/06/19 09:00 General: Sedated for ventilator not in acute distress. HEENT; mucous membranes moist, no anemia, no jaundice, PERRLA, no nystagmus Neck: No JVD, supple, no bruit, thyroid palpably normal, normal carotid pulsations. Chest: Nontender, bilateral basal rales. CVS: S1-S2 regular/irregular no murmur/gallop/rub Abdomen: Nondistended, soft, bowel sounds present. Extremities: Generalized anasarca scrotal swelling, bilateral edema feet ., pulses present CHEF ASSISTANT: Alert no gross motor sensory deficit CBC, BMP 05/06/19 05:58 05/06/19 05:58 Active Medications Heparin Sodium (Porcine) (Heparin -) 5,000 unit SQ TID MARYSE Last Admin: 05/05/19 06:23 Dose: 5,000 unit Piperacillin Sod/Tazobactam (Sod 3.375 gm/ Dextrose) 50 mls @ 100 mls/hr IVPB Q8H-IV MARYSE; Protocol Last Admin: 05/06/19 09:17 Dose: 100 mls/hr Fluconazole (Diflucan 200 Mg/Ns Premixed Ivpb -) 100 mls @ 100 mls/hr IVPB DAILY MARYSE Last Admin: 05/05/19 09:58 Dose: 100 mls/hr Norepinephrine Bitartrate 4, (000 mcg/ Dextrose) 500 mls @ 37.5 mls/hr IV TITR MARYSE; Protocol Last Titration: 05/05/19 14:59 Dose: 0 mcg/min, 0 mls/hr Fentanyl 500 mcg/ Dextrose 100 mls @ 5 mls/hr IVPB TITR MARYSE; Protocol Last Admin: 05/05/19 12:33 Dose: Not Given Propofol (Diprivan -) 1,000,000 mcg in 100 mls @ 6.222 mls/hr IVPB TITR MARYSE; Protocol Last Admin: 05/05/19 12:34 Dose: Not Given Pantoprazole Sodium 80 mg/ (Sodium Chloride) 100 mls @ 10 mls/hr IVPB Q10H [facility] Stop: 05/07/19 06:06 Last Admin: 05/06/19 09:17 Dose: Not Given Insulin Aspart (Novolog Vial Sliding Scale -) 1 vial SQ TIDAC [facility]; Protocol Last Admin: 05/05/19 16:43 Dose: 6 units Ondansetron HCl (Zofran Injection) 4 mg IVPUSH Q6H PRN PRN Reason: NAUSEA AND/OR VOMITING ASSESSMENT AND PLAN:64 years old man history of mental retardation,, HTN,T2DM, b /l LE swelling who was BIBEMS for a 1 day h/o Hypotension (70/51), lethargy and tachycardia. Patient transferred to ICU intubated for post op management. Patient is on pressures, developed multiorgan failure with thrombocytopenia, POD #6 s/p Exlap, Jack patch repair for perforated DU. Remains critically ill. On pressor support but weaning down Impression: Sepsis due to perforated duodenal ulcer status post exploratory laparotomy and repair for perforated duodenal ulcer. Problem List - Problems (1) Sepsis Assessment/Plan: Due to perforated duodenal ulcer continue current antibiotics and pressures management as per critical care. Code(s): A41.9 - SEPSIS, UNSPECIFIED ORGANISM (2) Perforated duodenal ulcer Assessment/Plan: POD #6s/p Exlap, Jack patch repair for perforated DU. Remains critically ill. On pressor support but weaning down Code(s): K26.5 - CHRONIC OR UNSPECIFIED DUODENAL ULCER WITH PERFORATION (3) DOMENIC (acute kidney injury) Assessment/Plan: Due to sepsis multiorgan failure follow-up urine output, nephrology recommendations and BMP daily Code(s): N17.9 - ACUTE KIDNEY FAILURE, UNSPECIFIED (4) Anasarca Assessment/Plan: Due to hypoproteinemia ICU team is considering TPN Code(s): R60.1 - GENERALIZED EDEMA (5) Thrombocytopenia Assessment/Plan: Due to sepsis, can be drug-induced at present platelet count is 70 1K monitor platelet count. Heparin on hold Heparin antibody sent Code(s): D69.6 - THROMBOCYTOPENIA, UNSPECIFIED (6) Anemia Assessment/Plan: H&H is stable to improved Code(s): D64.9 - ANEMIA, UNSPECIFIED
--- NOTE | 2019-05-06 10:49 | PN ---
Progress Note (short form) - Note Progress Note: remains intubated sedation d/rajat yesterday- unresponsive off pressors still with significant LEX drainage Vital Signs Period Temp Pulse Resp BP Sys/Booth Pulse Ox Last 24 Hr 97.9 F-98.9 F 80-91 18-23 107-128/54-67 98-100 cor-rrr lungs decreased bs at bases abd soft,nt incision packed +lex drain +scrotal edema ext +edema unresponsive CBC, BMP 05/06/19 05:58 05/06/19 05:58 Microbiology 04/30/19 09:00 Blood - Peripheral Venous Blood Culture - Final NO GROWTH AFTER 5 DAYS INCUBATION 04/30/19 09:00 Blood - Peripheral Venous Blood Culture - Final NO GROWTH AFTER 5 DAYS INCUBATION 04/30/19 14:28 Body Fluid - Other Gram Stain - Final 04/30/19 14:28 Body Fluid - Other Body Fluid Culture - Final NO GROWTH OF AEROBIC ORGANISMS AFTER 48 HOURS INCUBATION 04/30/19 14:28 Body Fluid - Other Anaerobic Culture - Final NO ANAEROBES WERE ISOLATED 04/30/19 14:38 Abdomen Gram Stain - Final 04/30/19 12:30 Urine - Urine Clean Catch Urine Culture - Final NO GROWTH OBTAINED a/p POD #6 sepsis secondary to perforated viscus s/p repair of perforated bowel domenic secondary to sepsis shock liver-improving respiratory failure- post op thrombocytopenia secondary to sepsis unresponsive off sedation head ct progressive thrombocytopenia-?sepsis, ?zosyn, ??heparin persistent leukocytosis- repeat ct abd/pelvis switch to ceftriaxone/flagyl d/w ICU staff Problem List - Problems (1) Sepsis Code(s): A41.9 - SEPSIS, UNSPECIFIED ORGANISM (2) Bowel perforation Code(s): K63.1 - PERFORATION OF INTESTINE (NONTRAUMATIC) (3) DOMENIC (acute kidney injury) Code(s): N17.9 - ACUTE KIDNEY FAILURE, UNSPECIFIED (4) Shock liver Code(s): K72.00 - ACUTE AND SUBACUTE HEPATIC FAILURE WITHOUT COMA
[2019-05-06] MEDS: FLUCONAZOLE 200 MG/NS 100 ML IVPB SCH (10:56)
[2019-05-06] MEDS ORDERED: DEXTROSE 5%-WATER 100 ML IVPB ONE (11:27)
[2019-05-06] MEDS: CEFTRIAXONE 2 GM in DEXTROSE 5%-WATER 100 ML IVPB SCH (11:35)
[2019-05-06] MEDS: PROPOFOL 1,000,000 MCG/100 ML VIAL IVPB SCH ×2 (11:50→12:56)
[2019-05-06 11:55] LABS: ANISOCYTOSIS 1+; MACROCYTOSIS 0; PLATELET ESTIMATE DECREASED; TARGET CELLS 1+
--- NOTE | 2019-05-06 11:55 | PN ---
Teaching Attending Note Name of Resident: Karla Billingsley ATTENDING PHYSICIAN STATEMENT I saw and evaluated the patient. I reviewed the resident's note and discussed the case with the resident. I agree with the resident's findings and plan as documented. SUBJECTIVE: Pt seen and examined in the ICU. Remains intubated, sedated. Good urine output with diuresis yesterday. Remains on low dose levophed gtt. OBJECTIVE: Vital Signs Period Temp Pulse Resp BP Sys/Booth Pulse Ox Last 24 Hr 97.9 F-99.2 F 80-93 18-23 107-128/54-67 98-100 Intake & Output 05/03/19 05/04/19 05/05/19 05/06/19 23:59 23:59 23:59 23:59 Intake Total 3793 5754 1641 170 Output Total 1160 2055 3105 910 Balance 2633 3564 -6314 -860 Weight 107.501 kg 108.998 kg 106.141 kg 110.903 kg Gen: intubated, sedated Heart: RRR Lung: scattered rhonchi Abd: soft, ASHLEY with slightly cloudy serosanguinous fluid Ext: + edema CBC, BMP 05/06/19 05:58 05/06/19 05:58 Active Medications Heparin Sodium (Porcine) (Heparin -) 5,000 unit SQ TID MARYSE Last Admin: 05/05/19 06:23 Dose: 5,000 unit Norepinephrine Bitartrate 4, (000 mcg/ Dextrose) 500 mls @ 37.5 mls/hr IV TITR MARYSE; Protocol Last Titration: 05/05/19 14:59 Dose: 0 mcg/min, 0 mls/hr Fentanyl 500 mcg/ Dextrose 100 mls @ 5 mls/hr IVPB TITR MARYSE; Protocol Last Admin: 05/05/19 12:33 Dose: Not Given Propofol (Diprivan -) 1,000,000 mcg in 100 mls @ 6.222 mls/hr IVPB TITR MARYSE; Protocol Last Admin: 05/05/19 12:34 Dose: Not Given Pantoprazole Sodium 80 mg/ (Sodium Chloride) 100 mls @ 10 mls/hr IVPB Q10H MARYSE Stop: 05/07/19 06:06 Last Admin: 05/06/19 09:17 Dose: Not Given Ceftriaxone Sodium 2 gm/ (Dextrose) 100 mls @ 100 mls/hr IVPB DAILY MARYSE; Protocol Last Admin: 05/06/19 11:35 Dose: 100 mls/hr Metronidazole (Flagyl 500mg Premixed Ivpb -) 500 mg in 100 mls @ 100 mls/hr IVPB Q8H-IV MARYSE Insulin Aspart (Novolog Vial Sliding Scale -) 1 vial SQ TIDAC MARYSE; Protocol Last Admin: 05/06/19 11:38 Dose: 4 units Ondansetron HCl (Zofran Injection) 4 mg IVPUSH Q6H PRN PRN Reason: NAUSEA AND/OR VOMITING ASSESSMENT AND PLAN: Acute Hypoxic Respiratory Failure Perforated Duodenal Ulcer s/p Ex-lap/Jack Patch Repair Peritonitis Septic Shock Acute Kidney Injury Elevated LFTs likely Ischemic Injury Hyponatremia Volume Overload Anemia Thrombocytopenia Mental Retardation HTN DM - continue antibiotics, antifungals - monitor drain output - for CT A/P - continue lasix - monitor urine output, creatinine - titrate pressors to maintain MAP >65 - keep CVP 8-12 - monitor CBC - taper FiO2 to keep SpO2 >90% - protonix - monitor WBC trend - start TPN today - DVT/GI prophylaxis - continue ICU monitoring - prognosis guarded critical care time spent in reviewing chart, evaluating patient and formulating plan 35 min
[2019-05-06] MEDS: FENTANYL INJECTION 500 MCG in DEXTROSE 5%-WATER - 90 ML IVPB SCH (12:56)
--- NOTE | 2019-05-06 13:08 | PROC ---
<Oskar Saha - Last Filed: 05/06/19 13:07> Central Line Insertion Indication: Sepsis, Vasopressor Risks and Benefits Explained: No (Patient was intubated and trinh) Consent on Chart: Yes Central Line: Triple Lumen Catheter Anesthesia: 1% Lidocaine Sterile Technique: Yes Ultrasound Guided Assistance: Yes Position: Left Internal Jugular Post Insertion: Yes: Chest X-Ray Ordered Sterile Dressing Applied: Yes <Jerad Toscano MD - Last Filed: 05/07/19 12:23> Procedure Note Procedure: I supervised and was present during the entire procedure. Jerad Toscano MD
--- NOTE | 2019-05-06 13:26 | PN ---
Progress Note, Physician History of Present Illness: Pt seen and examined at bedside. He remains in the ICU. He remains intubated. - Current Medication List Current Medications: Active Medications Heparin Sodium (Porcine) (Heparin -) 5,000 unit SQ TID MARYSE Last Admin: 05/05/19 06:23 Dose: 5,000 unit Norepinephrine Bitartrate 4, (000 mcg/ Dextrose) 500 mls @ 37.5 mls/hr IV TITR MARYSE; Protocol Last Titration: 05/05/19 14:59 Dose: 0 mcg/min, 0 mls/hr Fentanyl 500 mcg/ Dextrose 100 mls @ 5 mls/hr IVPB TITR MARYSE; Protocol Last Admin: 05/06/19 12:56 Dose: Not Given Propofol (Diprivan -) 1,000,000 mcg in 100 mls @ 6.222 mls/hr IVPB TITR MARYSE; Protocol Last Admin: 05/06/19 12:56 Dose: Not Given Pantoprazole Sodium 80 mg/ (Sodium Chloride) 100 mls @ 10 mls/hr IVPB Q10H MARYSE Stop: 05/07/19 06:06 Last Admin: 05/06/19 09:17 Dose: Not Given Ceftriaxone Sodium 2 gm/ (Dextrose) 100 mls @ 100 mls/hr IVPB DAILY MARYSE; Protocol Last Admin: 05/06/19 11:35 Dose: 100 mls/hr Metronidazole (Flagyl 500mg Premixed Ivpb -) 500 mg in 100 mls @ 100 mls/hr IVPB Q8H-IV MARYSE Insulin Aspart (Novolog Vial Sliding Scale -) 1 vial SQ TIDAC MARYSE; Protocol Last Admin: 05/06/19 11:38 Dose: 4 units Ondansetron HCl (Zofran Injection) 4 mg IVPUSH Q6H PRN PRN Reason: NAUSEA AND/OR VOMITING - Objective Vital Signs: Vital Signs Temperature 99.2 F 05/06/19 10:00 Pulse Rate 92 H 05/06/19 11:00 Respiratory Rate 21 H 05/06/19 11:00 Blood Pressure 118/58 L 05/06/19 11:00 O2 Sat by Pulse Oximetry (%) 100 05/06/19 10:00 Constitutional: Yes: Calm Eyes: Yes: Conjunctiva Clear HENT: Yes: Atraumatic Neck: Yes: Supple Cardiovascular: Yes: S1, S2 Respiratory: Yes: Mechanically Ventilated Gastrointestinal: Yes: Other (dressing in place) Genitourinary: Yes: Banuelos Present, Scrotal Edema Edema: Yes Edema: LLE: 2+, RLE: 2+ Neurological: Yes: Lethargy Labs: CBC, BMP 05/06/19 05:58 05/06/19 05:58 INR, PTT INR 1.36 (0.83-1.09) H 05/05/19 05:00 Fibrinogen 443.0 mg/dL (238-498) 05/05/19 05:00 - ....Imaging Chest X-ray: Report Reviewed Assessment/Plan Current Medications Generic Name Dose Route Start Last Admin Trade Name Freq PRN Reason Stop Dose Admin Heparin Sodium (Porcine) 5,000 unit 05/02/19 22:00 05/05/19 06:23 Heparin - SQ 5,000 unit TID MARYSE Administration Norepinephrine Bitartrate 4, 500 mls @ 37.5 mls/hr 04/30/19 19:30 05/05/19 14 :59 000 mcg/ Dextrose IV 0 mcg/min TITR MARYSE 0 mls/hr Titration Protocol 5 MCG/MIN Fentanyl 500 mcg/ Dextrose 100 mls @ 5 mls/hr 05/01/19 12:15 05/06/19 12:56 IVPB Not Given TITR MARYSE Protocol 25 MCG/HR Propofol 1,000,000 mcg in 100 mls @ 6.222 mls/hr 05/02/19 12:00 05/06/19 12: 56 Diprivan - IVPB Not Given TITR MARYSE Protocol 10 MCG/KG/MIN Pantoprazole Sodium 80 mg/ 100 mls @ 10 mls/hr 05/04/19 06:15 05/06/19 09:17 Sodium Chloride IVPB 05/07/19 06:06 Not Given Q10H MARYSE 8 MG/HR Ceftriaxone Sodium 2 gm/ 100 mls @ 100 mls/hr 05/06/19 11:00 05/06/19 11:35 Dextrose IVPB 100 mls/hr DAILY MARYSE Administration Protocol Metronidazole 500 mg in 100 mls @ 100 mls/hr 05/06/19 18:00 Flagyl 500mg Premixed Ivpb - IVPB Q8H-IV MARYSE Insulin Aspart 1 vial 05/01/19 07:00 05/06/19 11:38 Novolog Vial Sliding Scale - SQ 4 units TIDAC MARYSE Administration Protocol Ondansetron HCl 4 mg 04/30/19 16:45 Zofran Injection IVPUSH Q6H PRN NAUSEA AND/OR VOMITING IMPRESSION DOMENIC septic shock perforated duodenal ulcer fluid overload MR DM possible ckd transamitis hyperkalemia hyponatremia PLAN - cxr shows improvement - pt is net negative - cont lasix - monitor volume status - 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
--- NOTE | 2019-05-06 15:40 | PN ---
Physical Exam: SUBJECTIVE: Patient seen and examined Patient continued to diurese last night. Patient off sedation and without any acute overnight events OBJECTIVE: Vital Signs Period Temp Pulse Resp BP Sys/Booth Pulse Ox Last 24 Hr 98.2 F-99.2 F 80-93 18-23 107-126/54-67 98-100 GENERAL: intubated, unresponsive HEAD: Normal with no signs of trauma. EYES: sclera anicteric, conjunctiva clear. No ptosis. ENT: Ears normal, nares patent, moist mucous membranes. NGT ~60cm at nares NECK: Trachea midline, full range of motion, supple. LUNGS: coarse b/l BS to auscultation bilaterally. Vent 500, 14, 5, 40% HEART: Regular rate and rhythm, S1, S2 without murmur, rub or gallop. ABDOMEN: Soft, nontender, nondistended, hypoactive bowel sounds, surgical dressings overlying mid abd. ASHLEY with SS drainage : edematous scrotum EXTREMITIES: 2+ pulses, warm, well-perfused, +edema. NEUROLOGICAL: sedated on propofol SKIN: Warm, dry, normal turgor, no rashes or lesions noted Laboratory Results - last 24 hr 05/05/19 05/06/19 05/06/19 16:40 05:58 05:58 WBC 25.7 H RBC 3.30 L Hgb 9.3 L Hct 27.1 L MCV 82.1 MCH 28.1 MCHC 34.2 RDW 14.5 Plt Count 66 L MPV 10.5 Absolute Neuts (auto) 16.0 H Neutrophils % 62.3 Neutrophils % (Manual) 61.4 Band Neutrophils % 0.0 Lymphocytes % 7.9 L Lymphocytes % (Manual) 8.9 Monocytes % 28.3 H Monocytes % (Manual) 25 H Eosinophils % 1.3 Eosinophils % (Manual) 1.0 Basophils % 0.2 Basophils % (Manual) 0.0 Myelocytes % (Man) 0 D Promyelocytes % (Man) 1 D Blast Cells % (Manual) 0 Nucleated RBC % 0 Metamyelocytes 0 Hypochromia 1+ Platelet Estimate Decreased Polychromasia 1+ Poikilocytosis 1+ Anisocytosis 1+ Microcytosis 1+ Macrocytosis 0 Target Cells 1+ [place] Cells 1+ Sodium 131 L Potassium 4.3 Chloride 98 Carbon Dioxide 19 L Anion Gap 15 BUN 69.5 H Creatinine 4.7 H Est GFR (CKD-EPI)AfAm 14.13 Est GFR (CKD-EPI)NonAf 12.19 POC Glucometer 253 Random Glucose 222 H Calcium 7.5 L Phosphorus 5.9 H Magnesium 2.6 H Total Bilirubin 3.7 H AST 97 H ALT 403 H Alkaline Phosphatase 142 H Total Protein 3.8 L Albumin 1.2 L 05/06/19 05/06/19 06:36 11:33 WBC RBC Hgb Hct MCV MCH MCHC RDW Plt Count MPV Absolute Neuts (auto) Neutrophils % Neutrophils % (Manual) Band Neutrophils % Lymphocytes % Lymphocytes % (Manual) Monocytes % Monocytes % (Manual) Eosinophils % Eosinophils % (Manual) Basophils % Basophils % (Manual) Myelocytes % (Man) Promyelocytes % (Man) Blast Cells % (Manual) Nucleated RBC % Metamyelocytes Hypochromia Platelet Estimate Polychromasia Poikilocytosis Anisocytosis Microcytosis Macrocytosis Target Cells Tere Cells Sodium Potassium Chloride Carbon Dioxide Anion Gap BUN Creatinine Est GFR (CKD-EPI)AfAm Est GFR (CKD-EPI)NonAf POC Glucometer 218 250 Random Glucose Calcium Phosphorus Magnesium Total Bilirubin AST ALT Alkaline Phosphatase Total Protein Albumin Active Medications Generic Name Dose Route Start Last Admin Trade Name Freq PRN Reason Stop Dose Admin Heparin Sodium (Porcine) 5,000 unit 05/02/19 22:00 05/05/19 06:23 Heparin - SQ 5,000 unit TID MARYSE Administration Norepinephrine Bitartrate 4, 500 mls @ 37.5 mls/hr 04/30/19 19:30 05/05/19 14:59 000 mcg/ Dextrose IV 0 mcg/min TITR MARYSE 0 mls/hr Titration Protocol 5 MCG/MIN Fentanyl 500 mcg/ Dextrose 100 mls @ 5 mls/hr 05/01/19 12:15 05/06/19 12:56 IVPB Not Given TITR MARYSE Protocol 25 MCG/HR Propofol 1,000,000 mcg in 100 mls @ 6.222 mls/hr 05/02/19 12:00 05/06/19 12:56 Diprivan - IVPB Not Given TITR MARYSE Protocol 10 MCG/KG/MIN Ceftriaxone Sodium 2 gm/ 100 mls @ 100 mls/hr 05/06/19 11:00 05/06/19 11:35 Dextrose IVPB 100 mls/hr DAILY MARYSE Administration Protocol Metronidazole 500 mg in 100 mls @ 100 mls/hr 05/06/19 18:00 Flagyl 500mg Premixed Ivpb - IVPB Q8H-IV MARYSE Potassium Chloride 60 meq/ 1,000 mls @ 41.667 mls/hr 05/06/19 16:00 Sodium Acetate 40 meq/ Sodium IVPB Chloride 40 meq/ Insulin Human DAILY@1600 MARYSE Regular 20 units/ Folic Acid 1 mg/ Multivitamins/Minerals 10 ml/ Sterile Water/ Amino Acids/ Dextrose Insulin Aspart 1 vial 05/01/19 07:00 05/06/19 11:38 Novolog Vial Sliding Scale - SQ 4 units TIDAC MARYSE Administration Protocol Ondansetron HCl 4 mg 04/30/19 16:45 Zofran Injection IVPUSH Q6H PRN NAUSEA AND/OR VOMITING Pantoprazole Sodium 40 mg 05/06/19 22:00 Protonix Iv IVPUSH BID [facility] ASSESSMENT/PLAN: Patient is a 64 year old male with PMH of MR, HTN, DM, b/l LE swelling who was BIBEMS for a 1 day h/o Hypotension (70/51), lethargy and tachycardia, found to have free air under the diaphragm s/p omental patch for duodenal perforation POD6. Post-op admission to ICU intubated for HD monitoring. Neuro -Intubated -patient remains unresponsive following sedation vacation yesterday Pulmonary -Intubated -Vent: 500, 14, 6, 40% -will continue to wean fiO2 to maintain sats>90% Cardio -Hypotension --likely 2/2 septic shock -currently off pressors -CVP goal 8-12, fluids currently held GI -Perforated duodenum --possibly 2/2 freq NSAID usage vs H pylori -Transamnitis --likely shocked liver, levels improving daily ast/alt 213/723 -Lactic Acid improvin/15 3.0 -S/p Ex-Lap w/ Jack Patch([place]lita, 04/30/19) -NGT place surgically. per surgery NGT SHOULD NOT BE REMOVED OR MANIPULATED for 1 week -protonix ggt to be transitioned to 40mg protonix BID -Abx regimen: -S/p flagyl in ED -Zosyn and fluconazole -If intra op cultures negative for yeast, ok to DC fluconazole per surgery -TPN starting today Renal #DOMENIC --likely 2/2 cardiorenal syndrome - Cr 1.4, 1.1, 1.9, 2.3 --> 4.1 today 4.7 - post-op ABG shows metabolic acidosis; patient had a lactic acidosis pre op - Nephro(Lesley) consult: --lasix trial and continue to give if +response - continue lasix 60mg BID; follow uop ID -elevated WBC maintained since surgery, today 26; will perform panscan to rule out infectious etiology -f/u CT head, C/A/P Heme # thrombocytopenia > Plt: 211, 179, 156, 102, 89, 77, 76, 71, 66 today - HIT panel --pending FEN -holding fluids -dietary consult for TPN PPX -Protonix gtt -holding all DVT prolyphaxis given Cr and possible HIIT Dispo -ICU monitoring; will consider weaning later this week Visit type - Emergency Visit Emergency Visit: No - New Patient This patient is new to me today: No - Critical Care Critical Care patient: Yes Total Critical Care Time (in minutes): 40 Critical Care Statement: The care of this patient involved high complexity decision making to prevent further life threatening deterioration of the patient's condition and/or to evaluate & treat vital organ system(s) failure or risk of failure. ATTENDING PHYSICIAN STATEMENT I saw and evaluated the patient. I reviewed the resident's note and discussed the case with the resident. I agree with the resident's findings and plan as documented. SUBJECTIVE: OBJECTIVE: ASSESSMENT AND PLAN:
[2019-05-06] MEDS ORDERED: SODIUM ACETATE IVPB SCH (16:00)
[2019-05-06] MEDS ORDERED: SODIUM CHLORIDE IVPB SCH (16:00)
[2019-05-06] MEDS ORDERED: POTASSIUM CHLORIDE IVPB SCH (16:00)
[2019-05-06] MEDS ORDERED: [UNRECOGNIZED DRUG - OTHER] IVPB SCH (16:00)
[2019-05-06] MEDS: PANTOPRAZOLE SODIUM 40 MG VIAL IVPUSH SCH (21:15)
[2019-05-07] MEDS: FUROSEMIDE 40 MG/4 ML INJECTABLE VIAL IVPUSH SCH ×2 (06:07→13:29)
[2019-05-07] MEDS: INSULIN SLIDING SCALE (NOVOLOG) 1 VIAL SQ SCH ×3 (06:08→16:37)
[2019-05-07 06:18] LABS: BASO % 0.4 % (0-2.0); EOS % 1.4 % (0-4.5); HEMATOCRIT 25.8 % (35.4-49); HEMOGLOBIN 8.9 GM/dL (11.7-16.9); LYMPH % 8.3 % (8-40); MCH 28.2 pg (25.7-33.7); MCHC 34.6 g/dl (32.0-35.9); MEAN CELL VOLUME 81.5 fl (80-96); MEAN PLT VOLUME 10.1 fl (7.5-11.1); MONO % 25.6 % (3.8-10.2); NEUT % 64.3 % (42.8-82.8); PLATELET COUNT 87 K/MM3 (134-434); RBC 3.16 M/mm3 (4.00-5.60); RDW 13.9 % (11.9-15.9); WHITE BLOOD COUNT 24.3 K/mm3 (4.0-10.0)
[2019-05-07 06:45] LABS: ALBUMIN 1.3 g/dl (3.4-5.0); BILIRUBIN,TOTAL 3.8 mg/dL (0.2-1); BLOOD UREA NITROGEN 86.3 mg/dL (7-18); CALCIUM 7.6 mg/dL (8.5-10.1); CREATININE 4.8 mg/dL (0.55-1.3); MAGNESIUM 2.4 mg/dL (1.8-2.4); PHOSPHOROUS 6.3 mg/dL (2.5-4.9); POTASSIUM 4.3 mmol/L (3.5-5.1); TOT PROT 4.1 g/dl (6.4-8.2)
--- NOTE | 2019-05-07 07:34 | PN ---
Physical Exam: SUBJECTIVE: Patient seen and examined at bed side in ICU , intubated , off sedation on mechanical ventilation , off pressors levofedd , on lasix BID , with good urine out put , ASHLEY draineg no fever over night switch abx to ceftriaxon flagyl per ID , DC zosyn due to thrombocytopenia OBJECTIVE: Vital Signs Period Temp Pulse Resp BP Sys/Booth Pulse Ox Last 24 Hr 98.2 F-99.2 F 88-110 19-29 104-123/54-64 100-100 GENERAL: Intubated and sedated. demarco in place , surgey wound cover by Gauze , ASHLEY drainage EYES: Pupils equal, round and sluggishly reactive to light. LUNGS: decrease breath sound at the bases HEART: Regular rate and rhythm, normal S1 and S2 without murmur, rub or gallop. ABDOMEN: Soft, not distended, surgical dressing intact. seracenous drainage LOWER EXTREMITIES: 2+ pulses, warm, well-perfused. No calf tenderness. +1 peripheral edema. NEUROLOGICAL: intubated sedated , PEPRLA swollen scrotum Laboratory Results - last 24 hr 05/05/19 05/06/19 05/06/19 05:00 05:58 11:33 WBC RBC Hgb Hct MCV MCH MCHC RDW Plt Count MPV Absolute Neuts (auto) Neutrophils % Neutrophils % (Manual) 61.4 Band Neutrophils % 0.0 Lymphocytes % Lymphocytes % (Manual) 8.9 Monocytes % Monocytes % (Manual) 25 H Eosinophils % Eosinophils % (Manual) 1.0 Basophils % Basophils % (Manual) 0.0 Myelocytes % (Man) 0 D Promyelocytes % (Man) 1 D Blast Cells % (Manual) 0 Nucleated RBC % Metamyelocytes 0 Hypochromia 1+ Platelet Estimate Decreased Polychromasia 1+ Poikilocytosis 1+ Anisocytosis 1+ Microcytosis 1+ Macrocytosis 0 Target Cells 1+ Tere Cells 1+ Sodium Potassium Chloride Carbon Dioxide Anion Gap BUN Creatinine Est GFR (CKD-EPI)AfAm Est GFR (CKD-EPI)NonAf POC Glucometer 250 Random Glucose Calcium Phosphorus Magnesium Total Bilirubin AST ALT Alkaline Phosphatase Total Protein Albumin Heparin-Ind Plt Ab Scrn 0.160 05/06/19 05/07/19 05/07/19 17:13 05:30 05:30 WBC 24.3 H RBC 3.16 L Hgb 8.9 L Hct 25.8 L MCV 81.5 MCH 28.2 MCHC 34.6 RDW 13.9 Plt Count 87 L D MPV 10.1 Absolute Neuts (auto) 15.6 H Neutrophils % 64.3 Neutrophils % (Manual) Band Neutrophils % Lymphocytes % 8.3 Lymphocytes % (Manual) Monocytes % 25.6 H Monocytes % (Manual) Eosinophils % 1.4 Eosinophils % (Manual) Basophils % 0.4 Basophils % (Manual) Myelocytes % (Man) Promyelocytes % (Man) Blast Cells % (Manual) Nucleated RBC % 0 Metamyelocytes Hypochromia Platelet Estimate Polychromasia Poikilocytosis Anisocytosis Microcytosis Macrocytosis Target Cells [place] Cells Sodium 133 L Potassium 4.3 Chloride 100 Carbon Dioxide 21 Anion Gap 12 BUN 86.3 H Creatinine 4.8 H Est GFR (CKD-EPI)AfAm 13.78 Est GFR (CKD-EPI)NonAf 11.89 POC Glucometer 255 Random Glucose 310 H Calcium 7.6 L Phosphorus 6.3 H Magnesium 2.4 Total Bilirubin 3.8 H AST 70 H ALT 271 H Alkaline Phosphatase 142 H Total Protein 4.1 L Albumin 1.3 L Heparin-Ind Plt Ab Scrn 05/07/19 05:35 WBC RBC Hgb Hct MCV MCH MCHC RDW Plt Count MPV Absolute Neuts (auto) Neutrophils % Neutrophils % (Manual) Band Neutrophils % Lymphocytes % Lymphocytes % (Manual) Monocytes % Monocytes % (Manual) Eosinophils % Eosinophils % (Manual) Basophils % Basophils % (Manual) Myelocytes % (Man) Promyelocytes % (Man) Blast Cells % (Manual) Nucleated RBC % Metamyelocytes Hypochromia Platelet Estimate Polychromasia Poikilocytosis Anisocytosis Microcytosis Macrocytosis Target Cells [place] Sodium Potassium Chloride Carbon Dioxide Anion Gap BUN Creatinine Est GFR (CKD-EPI)AfAm Est GFR (CKD-EPI)NonAf POC Glucometer 277 Random Glucose Calcium Phosphorus Magnesium Total Bilirubin AST ALT Alkaline Phosphatase Total Protein Albumin Heparin-Ind Plt Ab Scrn Active Medications Generic Name Dose Route Start Last Admin Trade Name Freq PRN Reason Stop Dose Admin Furosemide 60 mg 05/06/19 06:00 05/07/19 06:07 Lasix Injection - IVPUSH 60 mg BID@0600,1400 MARYSE Administration Heparin Sodium (Porcine) 5,000 unit 05/02/19 22:00 02/18/20 06:23 Heparin - SQ 5,000 unit TID MARYSE Administration Propofol 1,000,000 mcg in 100 mls @ 6.222 mls/hr 05/02/19 12:00 05/06/19 12: 56 Diprivan - IVPB Not Given TITR MARYSE Protocol 10 MCG/KG/MIN Ceftriaxone Sodium 2 gm/ 100 mls @ 100 mls/hr 05/06/19 11:00 05/06/19 11:35 Dextrose IVPB 100 mls/hr DAILY MARYSE Administration Protocol Metronidazole 500 mg in 100 mls @ 100 mls/hr 05/06/19 18:00 05/07/19 02:13 Flagyl 500mg Premixed Ivpb - IVPB 100 mls/hr Q8H-IV MARYSE Administration Potassium Chloride 60 meq/ 1,000 mls @ 41.667 mls/hr 05/06/19 16:00 05/06/19 15:28 Sodium Acetate 40 meq/ Sodium IVPB 41.667 mls/hr Chloride 40 meq/ Insulin Human DAILY@1600 MARYSE Administration Regular 20 units/ Folic Acid 1 mg/ Multivitamins/Minerals 10 ml/ Sterile Water/ Amino Acids/ Dextrose Insulin Aspart 1 vial 05/01/19 07:00 05/07/19 06:08 Novolog Vial Sliding Scale - SQ 6 units TIDAC MARYSE Administration Protocol Ondansetron HCl 4 mg 04/30/19 16:45 Zofran Injection IVPUSH Q6H PRN NAUSEA AND/OR VOMITING Pantoprazole Sodium 40 mg 05/06/19 22:00 05/06/19 21:15 Protonix Iv IVPUSH 40 mg BID MARYSE Administration CBC, BMP 05/07/19 05:30 05/07/19 05:30 ASSESSMENT/PLAN: The pt is a 64 yo m w/ PMH MR, HTN, DM, b/l LE swelling who was BIBEMS for a 1 day h/o Hypotension (70/51), lethargy and tachycardia. Patient transferred to ICU intubated for post op management. #Septich shock 2/2 perforated duodenal ulcer (POD# 6) S/P lap choly repair # peritonitis * NGT place surgically. per surgery NGT SHOULD NOT BE REMOVED OR MANIPULATED for 1 week * start TPN , replace central line by ICU * cont protonix GTT * placed on zosyn and fluconazole post op per ID , switch to rocephin/flagyl per ID * gutierrez cx negative thus far * BP stable off levo GTT , off vaso GTT * ICU monitor IV fluids , pressors manage by ICU * mechanical ventilation maintain o2 sat > 90 * monitor drain out put * monitor urine out put # acute Hypoxic respiratory failure due to septic shock on mechanical ventilation per ICU # Hyperkalemia , resolved # Hypervolemic Hyponatremia 127...133 today decrease fluids IV , and give lasix 60 IV BID push once , # DOMENIC on CKD likely 2/2 septic shock , nephrology consulted , avoid nephrotoxic agents # anemia and thrombocytopenia likely due to sepsis , monitor cbc daily , on Hep sc for prophylaxis , HIT pending ,dc zosyn can cause thrombocytopenai as well , switch to rocephin and flagyl # metabolic acidosis; patient had a lactic acidosis pre op * dc NS @ 75 # transaminitis 2/2 septic sock , trend daily , avoid hepatotoxic agents , improving # mental disability #GI and DVT prophylaxis # monitor in ICU prognosis guarded Visit type - Emergency Visit Emergency Visit: Yes ED Registration Date: 04/30/19 Care time: The patient presented to the Emergency Department on the above date and was hospitalized for further evaluation of their emergent condition. - New Patient This patient is new to me today: No - Critical Care Critical Care patient: Yes Total Critical Care Time (in minutes): 45 Critical Care Statement: The care of this patient involved high complexity decision making to prevent further life threatening deterioration of the patient 's condition and/or to evaluate & treat vital organ system(s) failure or risk of failure. ATTENDING PHYSICIAN STATEMENT I saw and evaluated the patient. I reviewed the resident's note and discussed the case with the resident. I agree with the resident's findings and plan as documented. SUBJECTIVE: OBJECTIVE: ASSESSMENT AND PLAN:
[2019-05-07] MEDS ORDERED: DEXTROSE 5%-WATER 100 ML IVPB ONE (09:43)
[2019-05-07] MEDS: CEFTRIAXONE 2 GM in DEXTROSE 5%-WATER 100 ML IVPB SCH (09:52)
[2019-05-07] MEDS: PANTOPRAZOLE SODIUM 40 MG VIAL IVPUSH SCH ×2 (09:55→21:36)
[2019-05-07 10:42] LABS: ANISOCYTOSIS 0; MACROCYTOSIS 0; PLATELET ESTIMATE DECREASED
--- NOTE | 2019-05-07 12:04 | PN ---
Teaching Attending Note Name of Resident: Oskar Saha ATTENDING PHYSICIAN STATEMENT I saw and evaluated the patient. I reviewed the resident's note and discussed the case with the resident. I agree with the resident's findings and plan as documented. SUBJECTIVE: Pt seen and examined in the ICU. Remains intubated, received sedation overnight. On levophed gtt. Continues to diurese well with lasix BID. No fevers recorded. Still with significant drainage from ASHLEY. CT A/P unremarkable. OBJECTIVE: Vital Signs Period Temp Pulse Resp BP Sys/Booth Pulse Ox Last 24 Hr 98.2 F-98.9 F 88-110 19-29 104-123/54-64 100-100 Intake & Output 05/04/19 05/05/19 05/06/19 05/07/19 23:59 23:59 23:59 23:59 Intake Total 5754 1641 595 100 Output Total 2055 3105 3050 1240 Balance 2409 -2520 -1015 -1140 Weight 108.998 kg 106.141 kg 110.903 kg 103.555 kg Gen: intubated, sedated Heart: RRR Lung: scattered rhonchi Abd:soft, +ASHLEY with slighty cloudy serosanguinous Ext: + edema CBC, BMP 05/07/19 05:30 05/07/19 05:30 Active Medications Furosemide (Lasix Injection -) 60 mg IVPUSH BID@0600,1400 [facility] Last Admin: 05/07/19 06:07 Dose: 60 mg Heparin Sodium (Porcine) (Heparin -) 5,000 unit SQ TID MARYSE Last Admin: 05/05/19 06:23 Dose: 5,000 unit Propofol (Diprivan -) 1,000,000 mcg in 100 mls @ 6.222 mls/hr IVPB TITR MARYSE; Protocol Last Admin: 05/06/19 12:56 Dose: Not Given Ceftriaxone Sodium 2 gm/ (Dextrose) 100 mls @ 100 mls/hr IVPB DAILY [facility]; Protocol Last Admin: 05/07/19 09:52 Dose: 100 mls/hr Metronidazole (Flagyl 500mg Premixed Ivpb -) 500 mg in 100 mls @ 100 mls/hr IVPB Q8H-IV MARYSE Last Admin: 05/07/19 09:57 Dose: 100 mls/hr Potassium Chloride 60 meq/Sodium Acetate 40 meq/ Sodium Chloride 40 meq/ Insulin Human Regular 20 units/ Folic Acid 1 mg/ Multivitamins/Minerals 10 ml/ Sterile Water/ Amino Acids/ Dextrose 1,000 mls @ 41.667 mls/hr IVPB DAILY@1600 [facility] Last Admin: 05/06/19 15:28 Dose: 41.667 mls/hr Insulin Aspart (Novolog Vial Sliding Scale -) 1 vial SQ TIDAC [facility]; Protocol Last Admin: 05/07/19 11:19 Dose: 6 units Ondansetron HCl (Zofran Injection) 4 mg IVPUSH Q6H PRN PRN Reason: NAUSEA AND/OR VOMITING Pantoprazole Sodium (Protonix Iv) 40 mg IVPUSH BID [facility] Last Admin: 05/07/19 09:55 Dose: 40 mg ASSESSMENT AND PLAN: Acute Hypoxic Respiratory Failure Perforated Duodenal Ulcer s/p Ex-lap/Jack Patch Repair Peritonitis Septic Shock Acute Kidney Injury Elevated LFTs likely Ischemic Injury Hyponatremia Volume Overload Anemia Thrombocytopenia Mental Retardation HTN DM - continue antibiotics, antifungals - monitor drain output - continue lasix - monitor urine output, creatinine - titrate pressors to maintain MAP >65 - keep CVP 8-12 - monitor CBC - taper FiO2 to keep SpO2 >90% - protonix - monitor WBC trend - continue TPN - DVT/GI prophylaxis - continue ICU monitoring - prognosis guarded critical care time spent in reviewing chart, evaluating patient and formulating plan 35 min
--- NOTE | 2019-05-07 12:24 | PN ---
Physical Exam: SUBJECTIVE: Patient seen and examined NAEON Off sedation. Not responding to loud questioning or pinching OBJECTIVE: Vital Signs Period Temp Pulse Resp BP Sys/Booth Pulse Ox Last 24 Hr 98.2 F-98.9 F 88-110 19-29 104-123/54-64 100-100 GENERAL: intubated, unresponsive HEAD: Normal with no signs of trauma. EYES: sclera anicteric, conjunctiva clear. No ptosis. ENT: Ears normal, nares patent, moist mucous membranes. NGT ~60cm at nares NECK: Trachea midline, full range of motion, supple. LUNGS: coarse b/l BS to auscultation bilaterally. Vent 500, 14, 5, 40% HEART: Regular rate and rhythm, S1, S2 without murmur, rub or gallop. ABDOMEN: Soft, nontender, nondistended, hypoactive bowel sounds, surgical dressings overlying mid abd. ASHLEY with SS drainage : edematous scrotum EXTREMITIES: 2+ pulses, warm, well-perfused, +edema. NEUROLOGICAL: sedated on propofol SKIN: Warm, dry, normal turgor, no rashes or lesions noted Laboratory Results - last 24 hr 05/05/19 05/06/19 05/07/19 05:00 17:13 05:30 WBC 24.3 H RBC 3.16 L Hgb 8.9 L Hct 25.8 L MCV 81.5 MCH 28.2 MCHC 34.6 RDW 13.9 Plt Count 87 L D MPV 10.1 Absolute Neuts (auto) 15.6 H Neutrophils % 64.3 Neutrophils % (Manual) 64.0 Band Neutrophils % 0.0 Lymphocytes % 8.3 Lymphocytes % (Manual) 11.0 D Monocytes % 25.6 H Monocytes % (Manual) 21 H Eosinophils % 1.4 Eosinophils % (Manual) 1.0 Basophils % 0.4 Basophils % (Manual) 0.0 Myelocytes % (Man) 0 Promyelocytes % (Man) 0 D Blast Cells % (Manual) 0 Nucleated RBC % 0 Metamyelocytes 0 Hypochromia 0 Platelet Estimate Decreased Polychromasia 1+ Poikilocytosis 0 Anisocytosis 0 Microcytosis 0 Macrocytosis 0 Sodium Potassium Chloride Carbon Dioxide Anion Gap BUN Creatinine Est GFR (CKD-EPI)AfAm Est GFR (CKD-EPI)NonAf POC Glucometer 255 Random Glucose Calcium Phosphorus Magnesium Total Bilirubin AST ALT Alkaline Phosphatase Total Protein Albumin Heparin-Ind Plt Ab Scrn 0.160 05/07/19 05/07/19 05/07/19 05:30 05:35 11:14 WBC RBC Hgb Hct MCV MCH MCHC RDW Plt Count MPV Absolute Neuts (auto) Neutrophils % Neutrophils % (Manual) Band Neutrophils % Lymphocytes % Lymphocytes % (Manual) Monocytes % Monocytes % (Manual) Eosinophils % Eosinophils % (Manual) Basophils % Basophils % (Manual) Myelocytes % (Man) Promyelocytes % (Man) Blast Cells % (Manual) Nucleated RBC % Metamyelocytes Hypochromia Platelet Estimate Polychromasia Poikilocytosis Anisocytosis Microcytosis Macrocytosis Sodium 133 L Potassium 4.3 Chloride 100 Carbon Dioxide 21 Anion Gap 12 BUN 86.3 H Creatinine 4.8 H Est GFR (CKD-EPI)AfAm 13.78 Est GFR (CKD-EPI)NonAf 11.89 POC Glucometer 277 296 Random Glucose 310 H Calcium 7.6 L Phosphorus 6.3 H Magnesium 2.4 Total Bilirubin 3.8 H AST 70 H ALT 271 H Alkaline Phosphatase 142 H Total Protein 4.1 L Albumin 1.3 L Heparin-Ind Plt Ab Scrn Active Medications Generic Name Dose Route Start Last Admin Trade Name Freq PRN Reason Stop Dose Admin Furosemide 60 mg 05/06/19 06:00 05/07/19 06:07 Lasix Injection - IVPUSH 60 mg BID@0600,1400 MARYSE Administration Heparin Sodium (Porcine) 5,000 unit 05/02/19 22:00 05/05/19 06:23 Heparin - SQ 5,000 unit TID MARYSE Administration Propofol 1,000,000 mcg in 100 mls @ 6.222 mls/hr 05/02/19 12:00 05/06/19 12:56 Diprivan - IVPB Not Given TITR MARYSE Protocol 10 MCG/KG/MIN Ceftriaxone Sodium 2 gm/ 100 mls @ 100 mls/hr 05/06/19 11:00 05/07/19 09:52 Dextrose IVPB 100 mls/hr DAILY MARYSE Administration Protocol Metronidazole 500 mg in 100 mls @ 100 mls/hr 05/06/19 18:00 05/07/19 09:57 Flagyl 500mg Premixed Ivpb - IVPB 100 mls/hr Q8H-IV MARYSE Administration Potassium Chloride 60 meq/ 1,000 mls @ 41.667 mls/hr 05/06/19 16:00 05/06/19 15:28 Sodium Acetate 40 meq/ Sodium IVPB 41.667 mls/hr Chloride 40 meq/ Insulin Human DAILY@1600 MARYSE Administration Regular 20 units/ Folic Acid 1 mg/ Multivitamins/Minerals 10 ml/ Sterile Water/ Amino Acids/ Dextrose Insulin Aspart 1 vial 05/01/19 07:00 05/07/19 11:19 Novolog Vial Sliding Scale - SQ 6 units TIDAC MARYSE Administration Protocol Ondansetron HCl 4 mg 04/30/19 16:45 Zofran Injection IVPUSH Q6H PRN NAUSEA AND/OR VOMITING Pantoprazole Sodium 40 mg 05/06/19 22:00 05/07/19 09:55 Protonix Iv IVPUSH 40 mg BID MARYSE Administration ASSESSMENT/PLAN: 64 year old male with PMH of MR, HTN, DM, b/l LE swelling who was BIBEMS for a 1 day h/o Hypotension (70/51), lethargy and tachycardia, found to have free air under the diaphragm s/p omental patch for duodenal perforation POD6. Post-op admission to ICU intubated for HD monitoring. Neuro -Intubated -patient remains unresponsive, off sedation >24hs -as per Dr Salcido([place]), believes pt is minimally verbal at baseline but hasn't taken care of pt in years. Pulmonary -Intubated -Vent: 500, 14, 6, 40% --> CPAP as tolerated Cardio -Hypotension --likely 2/2 septic shock -currently off pressors -CVP goal 8-12, fluids currently held d/t volume overload GI -Perforated duodenum --possibly 2/2 freq NSAID usage vs H pylori -Transamnitis --likely shocked liver, levels improving daily ast/alt 213/723 -Lactic Acid improvin/15 3.0 -S/p Ex-Lap w/ Jack Patch([place], 04/30/19) -NGT place surgically. per surgery NGT SHOULD NOT BE REMOVED OR MANIPULATED for 1 week -protonix ggt to be transitioned to 40mg protonix BID -Abx regimen: -S/p flagyl in ED -stopped fluconazole -ceftriaxone, metronidazole -If intra op cultures negative for yeast, ok to DC fluconazole per surgery -tolerating TPN Renal #DOMENIC --likely 2/2 cardiorenal syndrome - Cr 1.4, 1.1, 1.9, 2.3 --> 4.8 now 4.8 - post-op ABG shows metabolic acidosis; patient had a lactic acidosis pre op - Nephro(Anant) consult: --lasix trial and continue to give - continue lasix 60mg BID; follow uop ID -elevated WBC maintained since surgery, today 24.3 -CTH(05/06/19): neg acute path -CT A/P(05/06/19): free air along the subhepatic space, likely postsurgical -empiric ceftriaxone, flagyl Heme # thrombocytopenia > Plt: 211, 179, 156, 102, 89, 77, 76, 71, 66, 87 - HIT panel --pending FEN -holding fluids -TPN -NGT to LWS PPX -Protonix gtt -holding all DVT prolyphaxis given Cr and possible HT; will resume SQH on if plt continue to improve Dispo -ICU monitoring Visit type - Emergency Visit Emergency Visit: No - New Patient This patient is new to me today: No - Critical Care Critical Care patient: Yes Total Critical Care Time (in minutes): 35 Critical Care Statement: The care of this patient involved high complexity decision making to prevent further life threatening deterioration of the patient's condition and/or to evaluate & treat vital organ system(s) failure or risk of failure. ATTENDING PHYSICIAN STATEMENT I saw and evaluated the patient. I reviewed the resident's note and discussed the case with the resident. I agree with the resident's findings and plan as documented. SUBJECTIVE: OBJECTIVE: ASSESSMENT AND PLAN:
--- NOTE | 2019-05-07 15:29 | PN ---
Teaching Attending Note Name of Resident: Vidal Aguilar ATTENDING PHYSICIAN STATEMENT I saw and evaluated the patient. I reviewed the resident's note and discussed the case with the resident. I agree with the resident's findings and plan as documented. SUBJECTIVE: Patient remained intubated on ventilator and sedated OBJECTIVE: Vital Signs Temperature 100.1 F H 05/07/19 14:00 Pulse Rate 92 H 05/07/19 14:00 Respiratory Rate 22 H 05/07/19 14:00 Blood Pressure 121/59 L 05/07/19 14:00 O2 Sat by Pulse Oximetry (%) 96 05/07/19 12:25 General: Sedated for ventilator not in acute distress. HEENT; mucous membranes moist, no anemia, no jaundice, PERRLA, no nystagmus Neck: No JVD, supple, no bruit, thyroid palpably normal, normal carotid pulsations. Chest: Nontender, bilateral basal rales. CVS: S1-S2 regular no murmur/gallop/rub Abdomen: Distended status post surgery, present. Extremities: Generalized anasarca scrotal swelling, bilateral edema feet ., pulses present PHOTOGRAMMETRIC TECHNICIAN: Sedated CBC, BMP 05/07/19 05:30 05/07/19 05:30 Active Medications Furosemide (Lasix Injection -) 60 mg IVPUSH BID@0600,1400 [facility] Last Admin: 05/07/19 13:29 Dose: 60 mg Heparin Sodium (Porcine) (Heparin -) 5,000 unit SQ TID MARYSE Last Admin: 05/05/19 06:23 Dose: 5,000 unit Ceftriaxone Sodium 2 gm/ (Dextrose) 100 mls @ 100 mls/hr IVPB DAILY MARYSE; Protocol Last Admin: 05/07/19 09:52 Dose: 100 mls/hr Metronidazole (Flagyl 500mg Premixed Ivpb -) 500 mg in 100 mls @ 100 mls/hr IVPB Q8H-IV MARYSE Last Admin: 05/07/19 09:57 Dose: 100 mls/hr Potassium Chloride 60 meq/Sodium Acetate 40 meq/ Sodium Chloride 40 meq/ Insulin Human Regular 20 units/ Folic Acid 1 mg/ Multivitamins/Minerals 10 ml/ Sterile Water/ Amino Acids/ Dextrose 1,000 mls @ 41.667 mls/hr IVPB DAILY@1600 [facility] Stop: 05/07/19 15:59 Last Admin: 05/06/19 15:28 Dose: 41.667 mls/hr Potassium Chloride 60 meq/Sodium Acetate 40 meq/ Sodium Chloride 40 meq/ Insulin Human Regular 30 units/ Folic Acid 1 mg/ Multivitamins/Minerals 10 ml/ Magnesium Sulfate 0.98 gm/ Calcium Gluconate 2,000 mg / Sterile Water/ Amino Acids/Dextrose 1,000 mls @ 41.667 mls/hr IVPB DAILY@1600 MARYSE Insulin Aspart (Novolog Vial Sliding Scale -) 1 vial SQ TIDAC [facility]; Protocol Last Admin: 05/07/19 11:19 Dose: 6 units Ondansetron HCl (Zofran Injection) 4 mg IVPUSH Q6H PRN PRN Reason: NAUSEA AND/OR VOMITING Pantoprazole Sodium (Protonix Iv) 40 mg IVPUSH BID [facility] Last Admin: 05/07/19 09:55 Dose: 40 mg 64 years old man history of mental retardation,, HTN,T2DM, b/l LE swelling who was BIBEMS for a 1 day h/o Hypotension (70/51), lethargy and tachycardia. Patient transferred to ICU intubated for post op management. Patient is on pressures, developed multiorgan failure with thrombocytopenia, POD #6 s/p Exlap , Jack patch repair for perforated DU. Remains critically ill. Now off pressors Impression: Sepsis due to perforated duodenal ulcer status post exploratory laparotomy and repair for perforated duodenal ulcer. Problem List - Problems (1) Sepsis Assessment/Plan: Due to perforated duodenal ulcer continue current antibiotics and pressures management as per critical care. Code(s): A41.9 - SEPSIS, UNSPECIFIED ORGANISM (2) Perforated duodenal ulcer Assessment/Plan: POD #6s/p Exlap, Jack patch repair for perforated DU. Remains critically ill. Code(s): K26.5 - CHRONIC OR UNSPECIFIED DUODENAL ULCER WITH PERFORATION (3) DOMENIC (acute kidney injury) Assessment/Plan: Due to sepsis multiorgan failure follow-up urine output, nephrology recommendations and BMP daily Code(s): N17.9 - ACUTE KIDNEY FAILURE, UNSPECIFIED (4) Anasarca Assessment/Plan: Due to hypoproteinemia ICU team is considering TPN Code(s): R60.1 - GENERALIZED EDEMA (5) Thrombocytopenia Assessment/Plan: Due to sepsis, can be drug-induced today 87 thousand, improving Code(s): D69.6 - THROMBOCYTOPENIA, UNSPECIFIED (6) Anemia Assessment/Plan: H&H is stable to improved Code(s): D64.9 - ANEMIA, UNSPECIFIED
--- NOTE | 2019-05-07 15:38 | PN ---
Progress Note (short form) - Note Progress Note: remains intubated sedation off- unresponsive off pressors Vital Signs Period Temp Pulse Resp BP Sys/Booth Pulse Ox Last 24 Hr 98.2 F-100.1 F 88-110 13-29 104-123/54-64 96-100 +anasarca cor-rrr lungs decreased bs at bases abd soft,nt, +ASHLEY drain ext +edema demarco +scrotal swelling CBC, BMP 05/07/19 05:30 05/07/19 05:30 Microbiology 04/30/19 09:00 Blood - Peripheral Venous Blood Culture - Final NO GROWTH AFTER 5 DAYS INCUBATION 04/30/19 09:00 Blood - Peripheral Venous Blood Culture - Final NO GROWTH AFTER 5 DAYS INCUBATION 04/30/19 14:28 Body Fluid - Other Gram Stain - Final 04/30/19 14:28 Body Fluid - Other Body Fluid Culture - Final NO GROWTH OF AEROBIC ORGANISMS AFTER 48 HOURS INCUBATION 04/30/19 14:28 Body Fluid - Other Anaerobic Culture - Final NO ANAEROBES WERE ISOLATED 04/30/19 14:38 Abdomen Gram Stain - Final 04/30/19 12:30 Urine - Urine Clean Catch Urine Culture - Final NO GROWTH OBTAINED ct scan unremarkable a/p POD #7-remain intubated, remains unresponsive off sedation sepsis secondary to perforated viscus s/p repair of perforated bowel domenic secondary to sepsis shock liver-improving respiratory failure- post op thrombocytopenia secondary to sepsis-improving head ct negative for acute event continue ceftriaxone /flagyl d/w ICU team Problem List - Problems (1) Sepsis Code(s): A41.9 - SEPSIS, UNSPECIFIED ORGANISM (2) Bowel perforation Code(s): K63.1 - PERFORATION OF INTESTINE (NONTRAUMATIC) (3) DOMENIC (acute kidney injury) Code(s): N17.9 - ACUTE KIDNEY FAILURE, UNSPECIFIED (4) Shock liver Code(s): K72.00 - ACUTE AND SUBACUTE HEPATIC FAILURE WITHOUT COMA
--- NOTE | 2019-05-07 15:59 | PN ---
Progress Note, Physician History of Present Illness: Pt seen and examined at bedside. He remains in the ICU. He remains intubated. - Current Medication List Current Medications: Active Medications Furosemide (Lasix Injection -) 60 mg IVPUSH BID@0600,1400 [facility] Last Admin: 05/07/19 13:29 Dose: 60 mg Heparin Sodium (Porcine) (Heparin -) 5,000 unit SQ TID [facility] Last Admin: 05/05/19 06:23 Dose: 5,000 unit Ceftriaxone Sodium 2 gm/ (Dextrose) 100 mls @ 100 mls/hr IVPB DAILY [facility]; Protocol Last Admin: 05/07/19 09:52 Dose: 100 mls/hr Metronidazole (Flagyl 500mg Premixed Ivpb -) 500 mg in 100 mls @ 100 mls/hr IVPB Q8H-IV [facility] Last Admin: 05/07/19 09:57 Dose: 100 mls/hr Potassium Chloride 60 meq/Sodium Acetate 40 meq/ Sodium Chloride 40 meq/ Insulin Human Regular 20 units/ Folic Acid 1 mg/ Multivitamins/Minerals 10 ml/ Sterile Water/ Amino Acids/ Dextrose 1,000 mls @ 41.667 mls/hr IVPB DAILY@1600 [facility] Stop: 05/07/19 15:59 Last Admin: 05/06/19 15:28 Dose: 41.667 mls/hr Potassium Chloride 60 meq/Sodium Acetate 40 meq/ Sodium Chloride 40 meq/ Insulin Human Regular 30 units/ Folic Acid 1 mg/ Multivitamins/Minerals 10 ml/ Magnesium Sulfate 0.98 gm/ Calcium Gluconate 2,000 mg / Sterile Water/ Amino Acids/Dextrose 1,000 mls @ 41.667 mls/hr IVPB DAILY@1600 [facility] Insulin Aspart (Novolog Vial Sliding Scale -) 1 vial SQ TIDAC [facility]; Protocol Last Admin: 05/07/19 11:19 Dose: 6 units Ondansetron HCl (Zofran Injection) 4 mg IVPUSH Q6H PRN PRN Reason: NAUSEA AND/OR VOMITING Pantoprazole Sodium (Protonix Iv) 40 mg IVPUSH BID [facility] Last Admin: 05/07/19 09:55 Dose: 40 mg - Objective Vital Signs: Vital Signs Temperature 100.1 F H 05/07/19 14:00 Pulse Rate 92 H 05/07/19 14:00 Respiratory Rate 22 H 05/07/19 14:00 Blood Pressure 121/59 L 05/07/19 14:00 O2 Sat by Pulse Oximetry (%) 96 05/07/19 12:25 Constitutional: Yes: Calm Eyes: Yes: Conjunctiva Clear HENT: Yes: Atraumatic Neck: Yes: Supple Cardiovascular: Yes: S1, S2 Respiratory: Yes: Mechanically Ventilated Gastrointestinal: Yes: Soft Genitourinary: Yes: Banuelos Present, Scrotal Edema Edema: Yes Edema: LLE: 1+, RLE: 1+ Neurological: Yes: Lethargy Labs: CBC, BMP 05/07/19 05:30 05/07/19 05:30 INR, PTT INR 1.36 (0.83-1.09) H 05/05/19 05:00 Fibrinogen 443.0 mg/dL (238-498) 05/05/19 05:00 Assessment/Plan Current Medications Generic Name Dose Route Start Last Admin Trade Name Freq PRN Reason Stop Dose Admin Furosemide 60 mg 05/06/19 06:00 05/07/19 13:29 Lasix Injection - IVPUSH 60 mg BID@0600,1400 MARYSE Administration Heparin Sodium (Porcine) 5,000 unit 05/02/19 22:00 05/05/19 06:23 Heparin - SQ 5,000 unit TID MARYSE Administration Ceftriaxone Sodium 2 gm/ 100 mls @ 100 mls/hr 05/06/19 11:00 05/07/19 09:52 Dextrose IVPB 100 mls/hr DAILY MARYSE Administration Protocol Metronidazole 500 mg in 100 mls @ 100 mls/hr 05/06/19 18:00 05/07/19 09:57 Flagyl 500mg Premixed Ivpb - IVPB 100 mls/hr Q8H-IV MARYSE Administration Potassium Chloride 60 meq/ 1,000 mls @ 41.667 mls/hr 05/06/19 16:00 05/06/19 15:28 Sodium Acetate 40 meq/ Sodium IVPB 05/07/19 15:59 41.667 mls/hr Chloride 40 meq/ Insulin Human DAILY@1600 MARYSE Administration Regular 20 units/ Folic Acid 1 mg/ Multivitamins/Minerals 10 ml/ Sterile Water/ Amino Acids/ Dextrose Potassium Chloride 60 meq/ 1,000 mls @ 41.667 mls/hr 05/07/19 16:00 Sodium Acetate 40 meq/ Sodium IVPB Chloride 40 meq/ Insulin Human DAILY@1600 MARYSE Regular 30 units/ Folic Acid 1 mg/ Multivitamins/Minerals 10 ml/ Magnesium Sulfate 0.98 gm/ Calcium Gluconate 2,000 mg / Sterile Water/ Amino Acids/ Dextrose Insulin Aspart 1 vial 05/01/19 07:00 05/07/19 11:19 Novolog Vial Sliding Scale - SQ 6 units TIDAC MARYSE Administration Protocol Ondansetron HCl 4 mg 04/30/19 16:45 Zofran Injection IVPUSH Q6H PRN NAUSEA AND/OR VOMITING Pantoprazole Sodium 40 mg 05/06/19 22:00 05/07/19 09:55 Protonix Iv IVPUSH 40 mg BID MARYSE Administration IMPRESSION DOMENIC septic shock perforated duodenal ulcer fluid overload MR DM possible ckd transamitis hyperkalemia hyponatremia PLAN - cont lasix - keep net negative - repeat labs in am - discussed with ICU team - no indication for acute HD - vent support - sodium is improving - maintain map 65
[2019-05-07] MEDS ORDERED: SODIUM CHLORIDE IVPB SCH (16:00)
[2019-05-07] MEDS ORDERED: [UNRECOGNIZED DRUG - OTHER] IVPB SCH (16:00)
[2019-05-07] MEDS ORDERED: SODIUM ACETATE IVPB SCH (16:00)
[2019-05-07] MEDS ORDERED: POTASSIUM CHLORIDE IVPB SCH (16:00)
[2019-05-07] MEDS ORDERED: PT OWN MED DRAWER 7, Y5N ONE (16:09)
[2019-05-08] MEDS: FUROSEMIDE 40 MG/4 ML INJECTABLE VIAL IVPUSH SCH ×2 (06:15→15:26)
[2019-05-08] MEDS: INSULIN SLIDING SCALE (NOVOLOG) 1 VIAL SQ SCH ×3 (06:16→16:45)
[2019-05-08 07:08] LABS: HEMATOCRIT 26.2 % (35.4-49); MCH 28.6 pg (25.7-33.7); MCHC 34.5 g/dl (32.0-35.9); MEAN CELL VOLUME 82.8 fl (80-96); MEAN PLT VOLUME 10.6 fl (7.5-11.1); PLATELET COUNT 112 K/MM3 (134-434); RBC 3.16 M/mm3 (4.00-5.60); RDW 14.3 % (11.9-15.9); WHITE BLOOD COUNT 21.7 K/mm3 (4.0-10.0)
[2019-05-08 08:00] LABS: ALBUMIN 1.3 g/dl (3.4-5.0); BILIRUBIN,TOTAL 3.1 mg/dL (0.2-1); CALCIUM 8.1 mg/dL (8.5-10.1); CREATININE 4.6 mg/dL (0.55-1.3); MAGNESIUM 2.5 mg/dL (1.8-2.4); PHOSPHOROUS 5.4 mg/dL (2.5-4.9); POTASSIUM 4.3 mmol/L (3.5-5.1); TOT PROT 4.3 g/dl (6.4-8.2)
--- NOTE | 2019-05-08 08:07 | PN ---
Physical Exam: SUBJECTIVE: Patient seen and examined at bed side in ICU , intubated , off sedation on mechanical ventilation , off pressors levofedd , on lasix BID , with good urine out put , ASHLEY draineg no fever over night switch abx to ceftriaxon flagyl and antifungal per ID , DC zosyn due to thrombocytopenia OBJECTIVE: Vital Signs Period Temp Pulse Resp BP Sys/Booth Pulse Ox Last 24 Hr 98 F-100.1 F 90-99 13-25 114-142/54-79 96-100 GENERAL: Intubated and sedated. demarco in place , surgey wound cover by Gauze , ASHLEY drainage EYES: Pupils equal, round and sluggishly reactive to light. LUNGS: decrease breath sound at the bases HEART: Regular rate and rhythm, normal S1 and S2 without murmur, rub or gallop. ABDOMEN: Soft, not distended, surgical dressing intact. seracenous drainage LOWER EXTREMITIES: 2+ pulses, warm, well-perfused. No calf tenderness. +1 peripheral edema. NEUROLOGICAL: intubated sedated , PEPRLA swollen scrotum less compare to yesterday Laboratory Results - last 24 hr 05/07/19 05/07/19 05/07/19 05:30 11:14 16:26 WBC RBC Hgb Hct MCV MCH MCHC RDW Plt Count MPV Neutrophils % (Manual) 64.0 Band Neutrophils % 0.0 Lymphocytes % (Manual) 11.0 D Monocytes % (Manual) 21 H Eosinophils % (Manual) 1.0 Basophils % (Manual) 0.0 Myelocytes % (Man) 0 Promyelocytes % (Man) 0 D Blast Cells % (Manual) 0 Nucleated RBC % 0 Metamyelocytes 0 Hypochromia 0 Platelet Estimate Decreased Polychromasia 1+ Poikilocytosis 0 Anisocytosis 0 Microcytosis 0 Macrocytosis 0 Sodium Potassium Chloride Carbon Dioxide Anion Gap Creatinine Est GFR (CKD-EPI)AfAm Est GFR (CKD-EPI)NonAf POC Glucometer 296 265 Random Glucose Calcium Phosphorus Magnesium Total Bilirubin AST ALT Alkaline Phosphatase Total Protein Albumin 05/08/19 05/08/19 05/08/19 06:00 06:00 06:05 WBC 21.7 H RBC 3.16 L Hgb 9.0 L Hct 26.2 L MCV 82.8 MCH 28.6 MCHC 34.5 RDW 14.3 Plt Count 112 L D MPV 10.6 Neutrophils % (Manual) Band Neutrophils % Lymphocytes % (Manual) Monocytes % (Manual) Eosinophils % (Manual) Basophils % (Manual) Myelocytes % (Man) Promyelocytes % (Man) Blast Cells % (Manual) Nucleated RBC % Metamyelocytes Hypochromia Platelet Estimate Polychromasia Poikilocytosis Anisocytosis Microcytosis Macrocytosis Sodium 136 Potassium 4.3 Chloride 102 Carbon Dioxide 22 Anion Gap 12 Creatinine 4.6 H Est GFR (CKD-EPI)AfAm 14.50 Est GFR (CKD-EPI)NonAf 12.51 POC Glucometer 317 Random Glucose 342 H Calcium 8.1 L Phosphorus 5.4 H Magnesium 2.5 H Total Bilirubin 3.1 H AST 54 H ALT 191 H Alkaline Phosphatase 150 H Total Protein 4.3 L Albumin 1.3 L Active Medications Generic Name Dose Route Start Last Admin Trade Name Freq PRN Reason Stop Dose Admin Furosemide 60 mg 05/06/19 06:00 05/08/19 06:15 Lasix Injection - IVPUSH 60 mg BID@0600,1400 MARYSE Administration Heparin Sodium (Porcine) 5,000 unit 05/02/19 22:00 05/05/19 06:23 Heparin - SQ 5,000 unit TID MARYSE Administration Ceftriaxone Sodium 2 gm/ 100 mls @ 100 mls/hr 05/06/19 11:00 05/07/19 09:52 Dextrose IVPB 100 mls/hr DAILY MARYSE Administration Protocol Metronidazole 500 mg in 100 mls @ 100 mls/hr 05/06/19 18:00 05/08/19 01:27 Flagyl 500mg Premixed Ivpb - IVPB 100 mls/hr Q8H-IV MARYSE Administration Potassium Chloride 60 meq/ 1,000 mls @ 41.667 mls/hr 05/07/19 16:00 05/07/19 16:18 Sodium Acetate 40 meq/ Sodium IVPB 41.667 mls/hr Chloride 40 meq/ Insulin Human DAILY@1600 MARYSE Administration Regular 30 units/ Folic Acid 1 mg/ Multivitamins/Minerals 10 ml/ Magnesium Sulfate 0.98 gm/ Calcium Gluconate 2,000 mg / Sterile Water/ Amino Acids/ Dextrose Insulin Aspart 1 vial 05/01/19 07:00 05/08/19 06:16 Novolog Vial Sliding Scale - SQ 8 units TIDAC MARYSE Administration Protocol Ondansetron HCl 4 mg 04/30/19 16:45 Zofran Injection IVPUSH Q6H PRN NAUSEA AND/OR VOMITING Pantoprazole Sodium 40 mg 05/06/19 22:00 05/07/19 21:36 Protonix Iv IVPUSH 40 mg BID MARYSE Administration CBC, BMP 05/08/19 06:00 05/08/19 06:00 ASSESSMENT/PLAN: The pt is a 64 yo m w/ PMH MR, HTN, DM, b/l LE swelling who was BIBEMS for a 1 day h/o Hypotension (70/51), lethargy and tachycardia. Patient transferred to ICU intubated for post op management. #Septich shock 2/2 perforated duodenal ulcer (POD# 7) S/P lap choly repair # peritonitis * NGT place surgically. per surgery NGT SHOULD NOT BE REMOVED OR MANIPULATED for 1 week * start TPN , replace central line by ICU * cont protonix GTT * placed on zosyn and fluconazole post op per ID , switch to rocephin/flagyl per ID * gutierrez cx negative thus far * BP stable off levo GTT , off vaso GTT * ICU monitor IV fluids , pressors manage by ICU * mechanical ventilation maintain o2 sat > 90 * monitor drain out put * monitor urine out put # acute Hypoxic respiratory failure due to septic shock on mechanical ventilation per ICU # Hyperkalemia , resolved # Hypervolemic Hyponatremia 127...133 today decrease fluids IV , and give lasix 60 IV BID push once , # DOMENIC on CKD likely 2/2 septic shock , nephrology consulted , avoid nephrotoxic agents # anemia and thrombocytopenia likely due to sepsis , monitor cbc daily , on Hep sc for prophylaxis , HIT pending ,dc zosyn can cause thrombocytopenai as well , switch to rocephin and flagyl # metabolic acidosis; patient had a lactic acidosis pre op * dc NS @ 75 # transaminitis 2/2 septic sock , trend daily , avoid hepatotoxic agents , improving # mental disability #GI and DVT prophylaxis # monitor in ICU prognosis guarded Visit type - Emergency Visit Emergency Visit: Yes ED Registration Date: 04/30/19 Care time: The patient presented to the Emergency Department on the above date and was hospitalized for further evaluation of their emergent condition. - New Patient This patient is new to me today: No - Critical Care Critical Care patient: Yes Total Critical Care Time (in minutes): 49 Critical Care Statement: The care of this patient involved high complexity decision making to prevent further life threatening deterioration of the patient 's condition and/or to evaluate & treat vital organ system(s) failure or risk of failure. ATTENDING PHYSICIAN STATEMENT I saw and evaluated the patient. I reviewed the resident's note and discussed the case with the resident. I agree with the resident's findings and plan as documented. SUBJECTIVE: OBJECTIVE: ASSESSMENT AND PLAN:
[2019-05-08 08:12] LABS: BLOOD UREA NITROGEN 108.3 mg/dL (7-18)
[2019-05-08] MEDS ORDERED: DEXTROSE 5%-WATER 100 ML IVPB ONE (09:58)
[2019-05-08] MEDS: CEFTRIAXONE 2 GM in DEXTROSE 5%-WATER 100 ML IVPB SCH (10:01)
[2019-05-08] MEDS: PANTOPRAZOLE SODIUM 40 MG VIAL IVPUSH SCH ×2 (10:03→21:23)
--- NOTE | 2019-05-08 10:17 | PN ---
Progress Note (short form) - Note Progress Note: remains intubated sedation off- remains unresponsive off pressors on TPN Vital Signs Period Temp Pulse Resp BP Sys/Booth Pulse Ox Last 24 Hr 98 F-100.1 F 90-99 13-25 114-142/54-79 96-100 left IJ cvp intubated cor-rrr lungs decreased bs at bases abd soft, dressing intact, incision with packing +ASHLEY drain ext +edema CBC, BMP 05/08/19 06:00 05/08/19 06:00 Microbiology 04/30/19 09:00 Blood - Peripheral Venous Blood Culture - Final NO GROWTH AFTER 5 DAYS INCUBATION 04/30/19 09:00 Blood - Peripheral Venous Blood Culture - Final NO GROWTH AFTER 5 DAYS INCUBATION 04/30/19 14:28 Body Fluid - Other Gram Stain - Final 04/30/19 14:28 Body Fluid - Other Body Fluid Culture - Final NO GROWTH OF AEROBIC ORGANISMS AFTER 48 HOURS INCUBATION 04/30/19 14:28 Body Fluid - Other Anaerobic Culture - Final NO ANAEROBES WERE ISOLATED 04/30/19 14:38 Abdomen Gram Stain - Final 04/30/19 12:30 Urine - Urine Clean Catch Urine Culture - Final NO GROWTH OBTAINED a/p POD #8-remain intubated, remains unresponsive off sedation sepsis secondary to perforated viscus s/p repair of perforated bowel domenic secondary to sepsis shock liver-improving respiratory failure- post op thrombocytopenia secondary to sepsis-improving lelukocytosis improving head ct negative for acute event continue ceftriaxone /flagyl Problem List - Problems (1) Sepsis Code(s): A41.9 - SEPSIS, UNSPECIFIED ORGANISM (2) Bowel perforation Code(s): K63.1 - PERFORATION OF INTESTINE (NONTRAUMATIC) (3) DOMENIC (acute kidney injury) Code(s): N17.9 - ACUTE KIDNEY FAILURE, UNSPECIFIED (4) Shock liver Code(s): K72.00 - ACUTE AND SUBACUTE HEPATIC FAILURE WITHOUT COMA
--- NOTE | 2019-05-08 13:54 | PN ---
Teaching Attending Note Name of Resident: Karla Billingsley ATTENDING PHYSICIAN STATEMENT I saw and evaluated the patient. I reviewed the resident's note and discussed the case with the resident. I agree with the resident's findings and plan as documented. SUBJECTIVE: Patient seen and examined in the ICU. Remains intubated, received sedation overnight. Off levophed drip. Still with significant drainage from ASHLEY. OBJECTIVE: Intake & Output 05/05/19 05/06/19 05/07/19 05/08/19 23:59 23:59 23:59 23:59 Intake Total 1641 595 904 100 Output Total 3105 3050 3130 1979 Balance -1464 -2455 -2226 -1880 Weight 234 lb 244 lb 8 oz 228 lb 4.8 oz 212 lb 6.4 oz Last Vital Signs Temp Pulse Resp BP Pulse Ox 98.4 F 95 H 22 H 130/68 100 05/08/19 13:20 05/08/19 13:20 05/08/19 13:20 05/08/19 13:20 05/08/19 12:13 Active Medications Furosemide (Lasix Injection -) 60 mg IVPUSH BID@0600,1400 [facility] Last Admin: 05/08/19 06:15 Dose: 60 mg Heparin Sodium (Porcine) (Heparin -) 5,000 unit SQ TID [facility] Last Admin: 05/05/19 06:23 Dose: 5,000 unit Ceftriaxone Sodium 2 gm/ (Dextrose) 100 mls @ 100 mls/hr IVPB DAILY [facility]; Protocol Last Admin: 05/08/19 10:01 Dose: 100 mls/hr Metronidazole (Flagyl 500mg Premixed Ivpb -) 500 mg in 100 mls @ 100 mls/hr IVPB Q8H-IV [facility] Last Admin: 05/08/19 10:03 Dose: 100 mls/hr Potassium Chloride 60 meq/Sodium Acetate 40 meq/ Sodium Chloride 40 meq/ Insulin Human Regular 30 units/ Folic Acid 1 mg/ Multivitamins/Minerals 10 ml/ Magnesium Sulfate 0.98 gm/ Calcium Gluconate 2,000 mg / Sterile Water/ Amino Acids/Dextrose 1,000 mls @ 41.667 mls/hr IVPB DAILY@1600 [facility] Last Admin: 05/07/19 16:18 Dose: 41.667 mls/hr Fat Emulsion-Soy/MCT/[place]/Fish Oil (Smoflipid 20% Iv Fat Emulsion) 250 mls @ 20.833 mls/hr IV DAILY@2200 [facility] Insulin Aspart (Novolog Vial Sliding Scale -) 1 vial SQ TIDAC [facility]; Protocol Last Admin: 05/08/19 12:38 Dose: 10 units Ondansetron HCl (Zofran Injection) 4 mg IVPUSH Q6H PRN PRN Reason: NAUSEA AND/OR VOMITING Pantoprazole Sodium (Protonix Iv) 40 mg IVPUSH BID [facility] Last Admin: 05/08/19 10:03 Dose: 40 mg Gen: intubated, sedated Heart: RRR Lung: scattered rhonchi Abd:soft, +ASHLEY with slighty cloudy serosanguinous Ext: + edema Laboratory Results - last 24 hr 05/07/19 05/08/19 05/08/19 16:26 06:00 06:00 WBC 21.7 H RBC 3.16 L Hgb 9.0 L Hct 26.2 L MCV 82.8 MCH 28.6 MCHC 34.5 RDW 14.3 Plt Count 112 L D MPV 10.6 Sodium 136 Potassium 4.3 Chloride 102 Carbon Dioxide 22 Anion Gap 12 BUN 108.3 H* Creatinine 4.6 H Est GFR (CKD-EPI)AfAm 14.50 Est GFR (CKD-EPI)NonAf 12.51 POC Glucometer 265 Random Glucose 342 H Calcium 8.1 L Phosphorus 5.4 H Magnesium 2.5 H Total Bilirubin 3.1 H AST 54 H ALT 191 H Alkaline Phosphatase 150 H Total Protein 4.3 L Albumin 1.3 L 05/08/19 05/08/19 06:05 12:37 WBC RBC Hgb Hct MCV MCH MCHC RDW Plt Count MPV Sodium Potassium Chloride Carbon Dioxide Anion Gap BUN Creatinine Est GFR (CKD-EPI)AfAm Est GFR (CKD-EPI)NonAf POC Glucometer 317 354 Random Glucose Calcium Phosphorus Magnesium Total Bilirubin AST ALT Alkaline Phosphatase Total Protein Albumin ASSESSMENT AND PLAN: Acute Hypoxic Respiratory Failure Perforated Duodenal Ulcer s/p Ex-lap/Jack Patch Repair Peritonitis Septic Shock Acute Kidney Injury Elevated LFTs likely Ischemic Injury Hyponatremia Volume Overload Anemia Thrombocytopenia Mental Retardation HTN DM - continue antibiotics, antifungals per ID - monitor drain output - continue lasix - monitor urine output, creatinine - keep CVP 8-12 - monitor CBC - taper FiO2 to keep SpO2 >90% - protonix - monitor WBC trend - continue TPN - DVT/GI prophylaxis - Wean trials as tolerated - continue ICU monitoring - prognosis guarded Dr Desai Critical care time spent in reviewing chart, evaluating patient and formulating plan 35 min
--- NOTE | 2019-05-08 14:04 | PN ---
Physical Exam: SUBJECTIVE: Patient seen and examined No acute overnight events. Continues to be unresponsive off sedation. Continues to diurese. Contacted staff at [place] and patient's mental status is minimal with requiring assist with ADLs and only speaks one word sentences. OBJECTIVE: Vital Signs Period Temp Pulse Resp BP Sys/Booth Pulse Ox Last 24 Hr 98 F-100.1 F 91-99 16-25 121-142/58-79 96-100 GENERAL: intubated, unresponsive HEAD: Normal with no signs of trauma. EYES: sclera anicteric, conjunctiva clear. No ptosis. ENT: Ears normal, nares patent, moist mucous membranes. NGT ~60cm at nares NECK: Trachea midline, full range of motion, supple. LUNGS: coarse b/l BS to auscultation bilaterally. Vent 500, 14, 5, 40% HEART: Regular rate and rhythm, S1, S2 without murmur, rub or gallop. ABDOMEN: Soft, nontender, nondistended, hypoactive bowel sounds, surgical dressings overlying mid abd. ASHLEY with SS drainage : edematous scrotum EXTREMITIES: 2+ pulses, warm, well-perfused, +edema. NEUROLOGICAL: off sedation, unresponsive, does not follow commands, does not open eyes SKIN: Warm, dry, normal turgor, no rashes or lesions noted, edema Laboratory Results - last 24 hr 05/07/19 05/08/19 05/08/19 16:26 06:00 06:00 WBC 21.7 H RBC 3.16 L Hgb 9.0 L Hct 26.2 L MCV 82.8 MCH 28.6 MCHC 34.5 RDW 14.3 Plt Count 112 L D MPV 10.6 Sodium 136 Potassium 4.3 Chloride 102 Carbon Dioxide 22 Anion Gap 12 BUN 108.3 H* Creatinine 4.6 H Est GFR (CKD-EPI)AfAm 14.50 Est GFR (CKD-EPI)NonAf 12.51 POC Glucometer 265 Random Glucose 342 H Calcium 8.1 L Phosphorus 5.4 H Magnesium 2.5 H Total Bilirubin 3.1 H AST 54 H ALT 191 H Alkaline Phosphatase 150 H Total Protein 4.3 L Albumin 1.3 L 05/08/19 05/08/19 06:05 12:37 WBC RBC Hgb Hct MCV MCH MCHC RDW Plt Count MPV Sodium Potassium Chloride Carbon Dioxide Anion Gap BUN Creatinine Est GFR (CKD-EPI)AfAm Est GFR (CKD-EPI)NonAf POC Glucometer 317 354 Random Glucose Calcium Phosphorus Magnesium Total Bilirubin AST ALT Alkaline Phosphatase Total Protein Albumin Active Medications Generic Name Dose Route Start Last Admin Trade Name Freq PRN Reason Stop Dose Admin Furosemide 60 mg 05/06/19 06:00 05/08/19 06:15 Lasix Injection - IVPUSH 60 mg BID@0600,1400 [facility] Administration Heparin Sodium (Porcine) 5,000 unit 05/02/19 22:00 05/05/19 06:23 Heparin - SQ 5,000 unit TID [facility] Administration Ceftriaxone Sodium 2 gm/ 100 mls @ 100 mls/hr 05/06/19 11:00 05/08/19 10:01 Dextrose IVPB 100 mls/hr DAILY [facility] Administration Protocol Metronidazole 500 mg in 100 mls @ 100 mls/hr 05/06/19 18:00 05/08/19 10:03 Flagyl 500mg Premixed Ivpb - IVPB 100 mls/hr Q8H-IV [facility] Administration Potassium Chloride 60 meq/ 1,000 mls @ 41.667 mls/hr 05/07/19 16:00 05/07/19 16:18 Sodium Acetate 40 meq/ Sodium IVPB 41.667 mls/hr Chloride 40 meq/ Insulin Human DAILY@1600 [facility] Administration Regular 30 units/ Folic Acid 1 mg/ Multivitamins/Minerals 10 ml/ Magnesium Sulfate 0.98 gm/ Calcium Gluconate 2,000 mg / Sterile Water/ Amino Acids/ Dextrose Fat Emulsion-Soy/MCT/[place]/Fish Oil 250 mls @ 20.833 mls/hr 05/08/19 22:00 Smoflipid 20% Iv Fat Emulsion IV DAILY@2200 [facility] Insulin Aspart 1 vial 05/01/19 07:00 05/08/19 12:38 Novolog Vial Sliding Scale - SQ 10 units TIDAC [facility] Administration Protocol Ondansetron HCl 4 mg 04/30/19 16:45 Zofran Injection IVPUSH Q6H PRN NAUSEA AND/OR VOMITING Pantoprazole Sodium 40 mg 05/06/19 22:00 05/08/19 10:03 Protonix Iv IVPUSH 40 mg BID [facility] Administration ASSESSMENT/PLAN: 64 year old male with PMH of MR, HTN, DM, b/l LE swelling who was BIBEMS for a 1 day h/o Hypotension (70/51), lethargy and tachycardia, found to have free air under the diaphragm s/p omental patch for duodenal perforation POD8. Post-op admission to ICU intubated for HD monitoring. Neuro -Intubated -patient remains unresponsive, off sedation >24hs -as per Dr Salcido([place]), believes pt is minimally verbal at baseline but hasn't taken care of pt in years. Pulmonary -Intubated -Vent: 500, 14, 6, 40% --> CPAP as tolerated Cardio -Hypotension --likely 2/2 septic shock -currently off pressors -CVP goal 8-12, fluids currently held d/t volume overload GI -Perforated duodenum --possibly 2/2 freq NSAID usage vs H pylori -Transamnitis --likely shocked liver, levels improving daily ast/alt 213/723 -Lactic Acid improvin/15 3.0 -S/p Ex-Lap w/ Jack Patch([place], 04/30/19) -NGT place surgically. per surgery NGT SHOULD NOT BE REMOVED OR MANIPULATED for 1 week -Discussed with Dr Cornelius covering Dr Bhat; recommends maintaining NG for another week and NPO; continue TPN -40mg protonix BID -Abx regimen: -S/p flagyl in ED -stopped fluconazole -ceftriaxone, metronidazole -If intra op cultures negative for yeast, ok to DC fluconazole per surgery -tolerating TPN Renal #DOMENIC --likely 2/2 cardiorenal syndrome - Cr 1.4, 1.1, 1.9, 2.3 --> 4.8 now 4.6 - post-op ABG shows metabolic acidosis; patient had a lactic acidosis pre op - Nephro([facility]) consult: --lasix trial and continue to give - continue lasix 60mg BID; follow uop ID -elevated WBC maintained since surgery, today 21.7 -CTH(05/06/19): neg acute path -CT A/P(05/06/19): free air along the subhepatic space, likely postsurgical -empiric ceftriaxone, flagyl Heme # thrombocytopenia > Plt: 211, 179, 156, 102, 89, 77, 76, 71, 66, 87, 112 - HIT panel negative -restarted HSQ TID FEN -holding fluids -TPN -NGT to LWS PPX -Protonix BID -HSQ Dispo -ICU monitoring Visit type - Emergency Visit Emergency Visit: No - New Patient This patient is new to me today: No - Critical Care Critical Care patient: Yes Total Critical Care Time (in minutes): 40 Critical Care Statement: The care of this patient involved high complexity decision making to prevent further life threatening deterioration of the patient 's condition and/or to evaluate & treat vital organ system(s) failure or risk of failure. ATTENDING PHYSICIAN STATEMENT I saw and evaluated the patient. I reviewed the resident's note and discussed the case with the resident. I agree with the resident's findings and plan as documented. SUBJECTIVE: OBJECTIVE: ASSESSMENT AND PLAN:
--- NOTE | 2019-05-08 14:39 | PN ---
Progress Note (short form) - Note Progress Note: SURGERY 64yo M s/p ex-lap and rohan patch, pt seen and examined at bedside. Pt currently intubated, off sedation, but unresponsive. WBC trending down, but still in the 20s. Last Vital Signs Temp Pulse Resp BP Pulse Ox 98.4 F 103 H 21 H 133/69 100 05/08/19 13:20 05/08/19 14:00 05/08/19 14:00 05/08/19 14:00 05/08/19 12:13 CBC, BMP 05/08/19 06:00 05/08/19 06:00 PE: Gen: unresponsive Resp: vent controlled Abd: soft, nondistended, dressing in place Problem List - Problems (1) Perforated duodenal ulcer Assessment/Plan: Plan -at this point, no new surgical intervention is needed. -pt can have dressing changed as needed, will remove packing bedside. -recommend NGT stay in place until no longer vented and less aspiration risk , unless deemed pt will need care home ventilation -please reconsult Perlita/Ruth if any new surgical issues. Pt discussed with Dr. Lamont Miranda who agrees with plan Code(s): K26.5 - CHRONIC OR UNSPECIFIED DUODENAL ULCER WITH PERFORATION
--- NOTE | 2019-05-08 14:44 | PN ---
Progress Note, Physician History of Present Illness: Pt seen and examined at bedside. He remains in the ICU. He remains intubated. - Current Medication List Current Medications: Active Medications Furosemide (Lasix Injection -) 60 mg IVPUSH BID@0600,1400 [facility] Last Admin: 05/08/19 06:15 Dose: 60 mg Heparin Sodium (Porcine) (Heparin -) 5,000 unit SQ TID [facility] Last Admin: 05/05/19 06:23 Dose: 5,000 unit Ceftriaxone Sodium 2 gm/ (Dextrose) 100 mls @ 100 mls/hr IVPB DAILY [facility]; Protocol Last Admin: 05/08/19 10:01 Dose: 100 mls/hr Metronidazole (Flagyl 500mg Premixed Ivpb -) 500 mg in 100 mls @ 100 mls/hr IVPB Q8H-IV [facility] Last Admin: 05/08/19 10:03 Dose: 100 mls/hr Potassium Chloride 60 meq/Sodium Acetate 40 meq/ Sodium Chloride 40 meq/ Insulin Human Regular 30 units/ Folic Acid 1 mg/ Multivitamins/Minerals 10 ml/ Magnesium Sulfate 0.98 gm/ Calcium Gluconate 2,000 mg / Sterile Water/ Amino Acids/Dextrose 1,000 mls @ 41.667 mls/hr IVPB DAILY@1600 [facility] Stop: 05/08/19 15:59 Last Admin: 05/07/19 16:18 Dose: 41.667 mls/hr Fat Emulsion-Soy/MCT/[place]/Fish Oil (Smoflipid 20% Iv Fat Emulsion) 250 mls @ 20.833 mls/hr IV DAILY@2200 [facility] Potassium Chloride 40 meq/Sodium Acetate 40 meq/ Sodium Chloride 40 meq/ Insulin Human Regular 30 units/ Folic Acid 1 mg/ Multivitamins/Minerals 10 ml/ Calcium Gluconate 1,000 mg/ Chromium/Copper/[place] /Zinc 1 ml/ Sterile Water/ Amino Acids/ Dextrose 1,000 mls @ 41.667 mls/hr IVPB DAILY@1600 [facility] Insulin Aspart (Novolog Vial Sliding Scale -) 1 vial SQ TIDAC [facility]; Protocol Last Admin: 05/08/19 12:38 Dose: 10 units Ondansetron HCl (Zofran Injection) 4 mg IVPUSH Q6H PRN PRN Reason: NAUSEA AND/OR VOMITING Pantoprazole Sodium (Protonix Iv) 40 mg IVPUSH BID [facility] Last Admin: 05/08/19 10:03 Dose: 40 mg - Objective Vital Signs: Vital Signs Temperature 98.4 F 05/08/19 13:20 Pulse Rate 103 H 05/08/19 14:00 Respiratory Rate 21 H 05/08/19 14:00 Blood Pressure 133/69 05/08/19 14:00 O2 Sat by Pulse Oximetry (%) 100 05/08/19 12:13 Constitutional: Yes: Calm Eyes: Yes: Conjunctiva Clear HENT: Yes: Atraumatic Neck: Yes: Supple Cardiovascular: Yes: S1, S2 Respiratory: Yes: Mechanically Ventilated Gastrointestinal: Yes: Soft Genitourinary: Yes: Banuelos Present, Scrotal Edema Musculoskeletal: Yes: Muscle Weakness Edema: Yes Edema: LLE: 1+, RLE: 1+ Neurological: Yes: Lethargy Labs: CBC, BMP 05/08/19 06:00 05/08/19 06:00 INR, PTT INR 1.36 (0.83-1.09) H 05/05/19 05:00 Fibrinogen 443.0 mg/dL (238-498) 05/05/19 05:00 - ....Imaging Chest X-ray: Report Reviewed Assessment/Plan Current Medications Generic Name Dose Route Start Last Admin Trade Name Freq PRN Reason Stop Dose Admin Furosemide 60 mg 05/06/19 06:00 05/08/19 06:15 Lasix Injection - IVPUSH 60 mg BID@0600,1400 [facility] Administration Heparin Sodium (Porcine) 5,000 unit 05/02/19 22:00 05/05/19 06:23 Heparin - SQ 5,000 unit TID [facility] Administration Ceftriaxone Sodium 2 gm/ 100 mls @ 100 mls/hr 05/06/19 11:00 05/08/19 10:01 Dextrose IVPB 100 mls/hr DAILY [facility] Administration Protocol Metronidazole 500 mg in 100 mls @ 100 mls/hr 05/06/19 18:00 05/08/19 10:03 Flagyl 500mg Premixed Ivpb - IVPB 100 mls/hr Q8H-IV [facility] Administration Potassium Chloride 60 meq/ 1,000 mls @ 41.667 mls/hr 05/07/19 16:00 05/07/19 16:18 Sodium Acetate 40 meq/ Sodium IVPB 05/08/19 15:59 41.667 mls/hr Chloride 40 meq/ Insulin Human DAILY@1600 [facility] Administration Regular 30 units/ Folic Acid 1 mg/ Multivitamins/Minerals 10 ml/ Magnesium Sulfate 0.98 gm/ Calcium Gluconate 2,000 mg / Sterile Water/ Amino Acids/ Dextrose Fat Emulsion-Soy/MCT/[place]/Fish Oil 250 mls @ 20.833 mls/hr 05/08/19 22:00 Smoflipid 20% Iv Fat Emulsion IV DAILY@2200 [facility] Potassium Chloride 40 meq/ 1,000 mls @ 41.667 mls/hr 05/08/19 16:00 Sodium Acetate 40 meq/ Sodium IVPB Chloride 40 meq/ Insulin Human DAILY@1600 [facility] Regular 30 units/ Folic Acid 1 mg/ Multivitamins/Minerals 10 ml/ Calcium Gluconate 1,000 mg/ Chromium/Copper/[place] /Zinc 1 ml/ Sterile Water/ Amino Acids/ Dextrose Insulin Aspart 1 vial 05/01/19 07:00 05/08/19 12:38 Novolog Vial Sliding Scale - SQ 10 units TIDAC [facility] Administration Protocol Ondansetron HCl 4 mg 04/30/19 16:45 Zofran Injection IVPUSH Q6H PRN NAUSEA AND/OR VOMITING Pantoprazole Sodium 40 mg 05/06/19 22:00 05/08/19 10:03 Protonix Iv IVPUSH 40 mg BID [facility] Administration IMPRESSION DOMENIC septic shock perforated duodenal ulcer fluid overload MR DM possible ckd transamitis hyperkalemia hyponatremia PLAN - 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
[2019-05-08] MEDS: HEPARIN NA (PORCINE) 5,000 UNITS/ML 1ML VIAL SQ SCH ×2 (15:26→21:20)
[2019-05-08] MEDS ORDERED: [UNRECOGNIZED DRUG - OTHER] IVPB SCH (16:00)
[2019-05-08] MEDS ORDERED: SODIUM CHLORIDE IVPB SCH (16:00)
[2019-05-08] MEDS ORDERED: POTASSIUM CHLORIDE IVPB SCH (16:00)
[2019-05-08] MEDS ORDERED: SODIUM ACETATE IVPB SCH (16:00)
--- NOTE | 2019-05-08 17:02 | PN ---
Teaching Attending Note Name of Resident: Vidal Aguilar ATTENDING PHYSICIAN STATEMENT I saw and evaluated the patient. I reviewed the resident's note and discussed the case with the resident. I agree with the resident's findings and plan as documented. SUBJECTIVE: Remains intubated and sedated OBJECTIVE: Vital Signs Temperature 98.4 F 05/08/19 13:20 Pulse Rate 103 H 05/08/19 16:00 Respiratory Rate 23 H 05/08/19 16:44 Blood Pressure 125/64 05/08/19 16:00 O2 Sat by Pulse Oximetry (%) 100 05/08/19 12:13 General: Sedated for ventilator not in acute distress. HEENT; mucous membranes moist, no anemia, no jaundice, PERRLA, no nystagmus Neck: No JVD, supple, no bruit, thyroid palpably normal, normal carotid pulsations. Chest: Nontender, bilateral basal rales. CVS: S1-S2 regular no murmur/gallop/rub Abdomen: Distended status post surgery, present. Extremities: Generalized anasarca scrotal swelling, bilateral edema feet ., pulses present PARAOPTOMETRIC: Sedated CBC, BMP 05/08/19 06:00 05/08/19 06:00 Active Medications Furosemide (Lasix Injection -) 60 mg IVPUSH BID@0600,1400 [facility] Last Admin: 05/08/19 15:26 Dose: 60 mg Heparin Sodium (Porcine) (Heparin -) 5,000 unit SQ TID [facility] Last Admin: 05/08/19 15:26 Dose: 5,000 unit Ceftriaxone Sodium 2 gm/ (Dextrose) 100 mls @ 100 mls/hr IVPB DAILY [facility]; Protocol Last Admin: 05/08/19 10:01 Dose: 100 mls/hr Metronidazole (Flagyl 500mg Premixed Ivpb -) 500 mg in 100 mls @ 100 mls/hr IVPB Q8H-IV [facility] Last Admin: 05/08/19 10:03 Dose: 100 mls/hr Fat Emulsion-Soy/MCT/[place]/Fish Oil (Smoflipid 20% Iv Fat Emulsion) 250 mls @ 20.833 mls/hr IV DAILY@2200 [facility] Potassium Chloride 40 meq/Sodium Acetate 40 meq/ Sodium Chloride 40 meq/ Insulin Human Regular 30 units/ Folic Acid 1 mg/ Multivitamins/Minerals 10 ml/ Calcium Gluconate 1,000 mg/ Chromium/Copper/[place] /Zinc 1 ml/ Sterile Water/ Amino Acids/ Dextrose 1,000 mls @ 41.667 mls/hr IVPB DAILY@1600 [facility] Last Admin: 05/08/19 16:11 Dose: 41.667 mls/hr Insulin Aspart (Novolog Vial Sliding Scale -) 1 vial SQ TIDAC [facility]; Protocol Last Admin: 05/08/19 16:45 Dose: 6 units Ondansetron HCl (Zofran Injection) 4 mg IVPUSH Q6H PRN PRN Reason: NAUSEA AND/OR VOMITING Pantoprazole Sodium (Protonix Iv) 40 mg IVPUSH BID [facility] Last Admin: 05/08/19 10:03 Dose: 40 mg ASSESSMENT AND PLAN:64 years old man history of mental retardation,, HTN,T2DM, b /l LE swelling who was BIBEMS for a 1 day h/o Hypotension (70/51), lethargy and tachycardia. Patient transferred to ICU intubated for post op management. Patient is on pressures, developed multiorgan failure with thrombocytopenia, s/ p , Jack patch repair for perforated DU. Remains critically ill. Now off pressors Impression: Sepsis due to perforated duodenal ulcer status post exploratory laparotomy and repair for perforated duodenal ulcer. Problem List - Problems (1) Sepsis Assessment/Plan: Due to perforated duodenal ulcer continue continue ceftriaxone plus Flagyl remained afebrile T WBC trending normal. Code(s): A41.9 - SEPSIS, UNSPECIFIED ORGANISM (2) Perforated duodenal ulcer Assessment/Plan: POD #6s/p Exlap, Jack patch repair for perforated DU. Remains critically ill. Code(s): K26.5 - CHRONIC OR UNSPECIFIED DUODENAL ULCER WITH PERFORATION (3) DOMENIC (acute kidney injury) Assessment/Plan: Due to sepsis multiorgan failure follow-up urine output, nephrology recommendations and BMP daily Code(s): N17.9 - ACUTE KIDNEY FAILURE, UNSPECIFIED (4) Anasarca Assessment/Plan: Due to hypoproteinemia ICU team is considering TPN Code(s): R60.1 - GENERALIZED EDEMA (5) Thrombocytopenia Assessment/Plan: Due to sepsis, , improving Code(s): D69.6 - THROMBOCYTOPENIA, UNSPECIFIED (6) Anemia Assessment/Plan: H&H is stable to improved Code(s): D64.9 - ANEMIA, UNSPECIFIED
--- NOTE | 2019-05-08 17:30 | PN ---
Progress Note (short form) - Note Progress Note: Contacted by renal regarding patient's elevated BUN. -likely iatrogenic 2/2 amount of protein in his feeds -renal suggests decreasing the amount of protein in his TPN next bag.
[2019-05-08] MEDS ORDERED: ACETAMINOPHEN 1000 MG/100 ML VIAL (NON FORMULARY) IVPB ONE (19:49)
[2019-05-08] MEDS ORDERED: PT OWN MED DRAWER 7, Y5N ONE (20:52)
[2019-05-08] MEDS: FAT EMUL/SOY/MCT/OLIV/FISH OIL 250 ML IV SCH (21:23)
[2019-05-09] MEDS: INSULIN SLIDING SCALE (NOVOLOG) 1 VIAL SQ SCH ×3 (06:27→18:06)
[2019-05-09] MEDS: FUROSEMIDE 40 MG/4 ML INJECTABLE VIAL IVPUSH SCH ×2 (06:28→14:52)
[2019-05-09] MEDS: HEPARIN NA (PORCINE) 5,000 UNITS/ML 1ML VIAL SQ SCH ×3 (06:28→21:34)
[2019-05-09 06:44] LABS: BASO % 0.8 % (0-2.0); EOS % 2.6 % (0-4.5); HEMATOCRIT 26.6 % (35.4-49); HEMOGLOBIN 9.1 GM/dL (11.7-16.9); LYMPH % 13.9 % (8-40); MCH 28.3 pg (25.7-33.7); MCHC 34.3 g/dl (32.0-35.9); MEAN CELL VOLUME 82.6 fl (80-96); MEAN PLT VOLUME 10.7 fl (7.5-11.1); MONO % 13.5 % (3.8-10.2); NEUT % 69.2 % (42.8-82.8); PLATELET COUNT 165 K/MM3 (134-434); RBC 3.22 M/mm3 (4.00-5.60); RDW 14.6 % (11.9-15.9)
[2019-05-09 07:48] LABS: ALBUMIN 1.4 g/dl (3.4-5.0); BILIRUBIN,TOTAL 2.5 mg/dL (0.2-1); CALCIUM 8.5 mg/dL (8.5-10.1); CREATININE 4.1 mg/dL (0.55-1.3); MAGNESIUM 2.3 mg/dL (1.8-2.4); PHOSPHOROUS 4.8 mg/dL (2.5-4.9); POTASSIUM 4.2 mmol/L (3.5-5.1); TOT PROT 4.5 g/dl (6.4-8.2)
[2019-05-09 08:17] LABS: BLOOD UREA NITROGEN 115.4 mg/dL (7-18)
--- NOTE | 2019-05-09 08:35 | PN ---
Progress Note, Physician Chief Complaint: Still on ventilator off sedation - Current Medication List Current Medications: Active Medications Furosemide (Lasix Injection -) 60 mg IVPUSH BID@0600,1400 [facility] Last Admin: 05/09/19 06:28 Dose: 60 mg Heparin Sodium (Porcine) (Heparin -) 5,000 unit SQ TID [facility] Last Admin: 05/09/19 06:28 Dose: 5,000 unit Ceftriaxone Sodium 2 gm/ (Dextrose) 100 mls @ 100 mls/hr IVPB DAILY [facility]; Protocol Last Admin: 05/08/19 10:01 Dose: 100 mls/hr Metronidazole (Flagyl 500mg Premixed Ivpb -) 500 mg in 100 mls @ 100 mls/hr IVPB Q8H-IV [facility] Last Admin: 05/09/19 01:50 Dose: 100 mls/hr Fat Emulsion-Soy/MCT/[place]/Fish Oil (Smoflipid 20% Iv Fat Emulsion) 250 mls @ 20.833 mls/hr IV DAILY@2200 [facility] Last Admin: 05/08/19 21:23 Dose: 20.833 mls/hr Potassium Chloride 40 meq/Sodium Acetate 40 meq/ Sodium Chloride 40 meq/ Insulin Human Regular 30 units/ Folic Acid 1 mg/ Multivitamins/Minerals 10 ml/ Calcium Gluconate 1,000 mg/ Chromium/Copper/Manganese /Zinc 1 ml/ Sterile Water/ Amino Acids/ Dextrose 1,000 mls @ 41.667 mls/hr IVPB DAILY@1600 [facility] Last Admin: 05/08/19 16:11 Dose: 41.667 mls/hr Insulin Aspart (Novolog Vial Sliding Scale -) 1 vial SQ TIDAC [facility]; Protocol Last Admin: 05/09/19 06:27 Dose: 8 units Ondansetron HCl (Zofran Injection) 4 mg IVPUSH Q6H PRN PRN Reason: NAUSEA AND/OR VOMITING Pantoprazole Sodium (Protonix Iv) 40 mg IVPUSH BID [facility] Last Admin: 05/08/19 21:23 Dose: 40 mg - Objective Vital Signs: Vital Signs Temperature 100 F H 05/09/19 06:00 Pulse Rate 109 H 05/09/19 08:32 Respiratory Rate 22 H 05/09/19 08:32 Blood Pressure 125/71 05/09/19 06:00 O2 Sat by Pulse Oximetry (%) 100 05/09/19 08:32 General: Off sedation minimally responsive on not in acute distress. HEENT; mucous membranes moist, no anemia, no jaundice, PERRLA, no nystagmus Neck: No JVD, supple, no bruit, thyroid palpably normal, normal carotid pulsations. Chest: Nontender, bilateral basal rales. CVS: S1-S2 regular no murmur/gallop/rub Abdomen: Distended status post surgery, present. Extremities: Generalized anasarca scrotal swelling, bilateral edema feet ., pulses present POLITICAL RESEARCHER: Off sedation minimally responsive sedated Labs: CBC, BMP 05/09/19 05:40 05/09/19 05:40 INR, PTT INR 1.36 (0.83-1.09) H 05/05/19 05:00 Fibrinogen 443.0 mg/dL (238-498) 05/05/19 05:00 Problem List - Problems (1) Sepsis Assessment/Plan: Due to perforated duodenal ulcer continue continue ceftriaxone plus Flagyl remained afebrile T WBC trending normal. Code(s): A41.9 - SEPSIS, UNSPECIFIED ORGANISM (2) Perforated duodenal ulcer Assessment/Plan: POD #6s/p Exlap, Jack patch repair for perforated DU. Remains critically ill. Code(s): K26.5 - CHRONIC OR UNSPECIFIED DUODENAL ULCER WITH PERFORATION (3) DOMENIC (acute kidney injury) Assessment/Plan: Due to sepsis multiorgan failure follow-up urine output, nephrology recommendations and BMP daily Code(s): N17.9 - ACUTE KIDNEY FAILURE, UNSPECIFIED (4) Anasarca Assessment/Plan: Due to hypoproteinemia ICU team is considering TPN Code(s): R60.1 - GENERALIZED EDEMA (5) Thrombocytopenia Assessment/Plan: Due to sepsis, , improving Code(s): D69.6 - THROMBOCYTOPENIA, UNSPECIFIED (6) Anemia Assessment/Plan: H&H is stable to improved Code(s): D64.9 - ANEMIA, UNSPECIFIED
[2019-05-09] MEDS ORDERED: DEXTROSE 5%-WATER 100 ML IVPB ONE (09:01)
--- NOTE | 2019-05-09 09:45 | PN ---
Progress Note (short form) - Note Progress Note: remains intubated sedation off- remains unresponsive on TPN low grade temp- cultures sent Vital Signs Period Temp Pulse Resp BP Sys/Booth Pulse Ox Last 24 Hr 98.4 F-100.8 F 95-115 16-28 103-137/59-79 98-100 cor-rrr lungs decresed bs at bases abd soft,wound packed, still with ASHLEY drain ext +edema +scrotal edema +left IJ CVP CBC, BMP 05/09/19 05:40 05/09/19 05:40 Microbiology 04/30/19 09:00 Blood - Peripheral Venous Blood Culture - Final NO GROWTH AFTER 5 DAYS INCUBATION 04/30/19 09:00 Blood - Peripheral Venous Blood Culture - Final NO GROWTH AFTER 5 DAYS INCUBATION 04/30/19 14:28 Body Fluid - Other Gram Stain - Final 04/30/19 14:28 Body Fluid - Other Body Fluid Culture - Final NO GROWTH OF AEROBIC ORGANISMS AFTER 48 HOURS INCUBATION 04/30/19 14:28 Body Fluid - Other Anaerobic Culture - Final NO ANAEROBES WERE ISOLATED 04/30/19 14:38 Abdomen Gram Stain - Final 04/30/19 12:30 Urine - Urine Clean Catch Urine Culture - Final NO GROWTH OBTAINED a/p fever overnight POD #9-remain intubated, remains unresponsive off sedation sepsis secondary to perforated viscus s/p repair of perforated bowel respiratory failure- remains intubated thrombocytopenia secondary to sepsis-resolved domenic- responding to IV lasix, still volume overloaded continue ceftriaxone /flagyl repeat blood cultures sent Problem List - Problems (1) Sepsis Code(s): A41.9 - SEPSIS, UNSPECIFIED ORGANISM (2) Bowel perforation Code(s): K63.1 - PERFORATION OF INTESTINE (NONTRAUMATIC) (3) DOMENIC (acute kidney injury) Code(s): N17.9 - ACUTE KIDNEY FAILURE, UNSPECIFIED (4) Shock liver Code(s): K72.00 - ACUTE AND SUBACUTE HEPATIC FAILURE WITHOUT COMA
[2019-05-09] MEDS: PANTOPRAZOLE SODIUM 40 MG VIAL IVPUSH SCH ×2 (10:07→21:34)
[2019-05-09] MEDS: CEFTRIAXONE 2 GM in DEXTROSE 5%-WATER 100 ML IVPB SCH (10:07)
--- NOTE | 2019-05-09 10:21 | PN ---
Progress Note (short form) - Note Progress Note: PULM/CCM SUBJECTIVE: Patient seen and examined in the ICU. -improved mental status -ongoing diuresis -low grade temp OBJECTIVE: Vital Signs Temp 100 F H 05/09/19 06:00 Pulse 109 H 05/09/19 08:32 Resp 22 H 05/09/19 09:00 BP 124/69 05/09/19 08:00 Pulse Ox 100 05/09/19 09:00 Intake & Output 05/08/19 05/08/19 05/09/19 11:59 23:59 11:59 Intake Total 100 125 437.9 Output Total 1980 3730 1940 Balance -7920 -6595 -1502.1 Weight 96.343 kg 93.077 kg Intake: IV 125 291.9 TPN 125 291.9 IVPB 100 146 Output: Gastric Drainage 90 50 Drainage 280 140 90 lex 280 140 90 Urine 1700 3500 1800 Banuelos 1700 3500 1800 Other: Voiding Method Indwelling Catheter Indwelling Catheter Indwelling Catheter Bowel Movement No No Body Mass Index (BMI) 34.2 Weight Measurement Method [facility] Current Medications Furosemide (Lasix Injection -) 60 mg IVPUSH BID@0600,1400 [facility] Last Admin: 05/09/19 06:28 Dose: 60 mg Heparin Sodium (Porcine) (Heparin -) 5,000 unit SQ TID [facility] Last Admin: 05/09/19 06:28 Dose: 5,000 unit Ceftriaxone Sodium 2 gm/ (Dextrose) 100 mls @ 100 mls/hr IVPB DAILY [facility]; Protocol Last Admin: 05/09/19 10:07 Dose: 100 mls/hr Metronidazole (Flagyl 500mg Premixed Ivpb -) 500 mg in 100 mls @ 100 mls/hr IVPB Q8H-IV [facility] Last Admin: 05/09/19 10:03 Dose: 100 mls/hr Fat Emulsion-Soy/MCT/[place]/Fish Oil (Smoflipid 20% Iv Fat Emulsion) 250 mls @ 20.833 mls/hr IV DAILY@2200 [facility] Last Admin: 05/08/19 21:23 Dose: 20.833 mls/hr Potassium Chloride 40 meq/Sodium Acetate 40 meq/ Sodium Chloride 40 meq/ Insulin Human Regular 30 units/ Folic Acid 1 mg/ Multivitamins/Minerals 10 ml/ Calcium Gluconate 1,000 mg/ Chromium/Copper/[place] /Zinc 1 ml/ Sterile Water/ Amino Acids/ Dextrose 1,000 mls @ 41.667 mls/hr IVPB DAILY@1600 [facility] Last Admin: 05/08/19 16:11 Dose: 41.667 mls/hr Insulin Aspart (Novolog Vial Sliding Scale -) 1 vial SQ TIDAC [facility]; Protocol Last Admin: 05/09/19 06:27 Dose: 8 units Ondansetron HCl (Zofran Injection) 4 mg IVPUSH Q6H PRN PRN Reason: NAUSEA AND/OR VOMITING Pantoprazole Sodium (Protonix Iv) 40 mg IVPUSH BID [facility] Last Admin: 05/09/19 10:07 Dose: 40 mg Gen: intubated, opens eyes to noxious Heart: RRR Lung: scattered rhonchi Abd:soft, +LEX with slighty cloudy serosanguinous, hypoactive bs Ext: + edema, improved per report Laboratory Results - last 24 hr 05/08/19 05/08/19 05/09/19 12:37 16:44 05:34 WBC RBC Hgb Hct MCV MCH MCHC RDW Plt Count MPV Absolute Neuts (auto) Neutrophils % Lymphocytes % Monocytes % Eosinophils % Basophils % Nucleated RBC % Sodium Potassium Chloride Carbon Dioxide Anion Gap BUN Creatinine Est GFR (CKD-EPI)AfAm Est GFR (CKD-EPI)NonAf POC Glucometer 354 298 315 Random Glucose Calcium Phosphorus Magnesium Total Bilirubin AST ALT Alkaline Phosphatase Total Protein Albumin 05/09/19 05/09/19 05:40 05:40 WBC 23.0 H RBC 3.22 L Hgb 9.1 L Hct 26.6 L MCV 82.6 MCH 28.3 MCHC 34.3 RDW 14.6 Plt Count 165 D MPV 10.7 Absolute Neuts (auto) 15.9 H Neutrophils % 69.2 Lymphocytes % 13.9 D Monocytes % 13.5 H Eosinophils % 2.6 D Basophils % 0.8 Nucleated RBC % 0 Sodium 138 Potassium 4.2 Chloride 105 Carbon Dioxide 23 Anion Gap 10 BUN 115.4 H* Creatinine 4.1 H Est GFR (CKD-EPI)AfAm 16.67 Est GFR (CKD-EPI)NonAf 14.38 POC Glucometer Random Glucose 333 H Calcium 8.5 Phosphorus 4.8 Magnesium 2.3 Total Bilirubin 2.5 H AST 55 H ALT 137 H Alkaline Phosphatase 161 H Total Protein 4.5 L Albumin 1.4 L Microbiology 04/30/19 09:00 Blood - Peripheral Venous Blood Culture - Final NO GROWTH AFTER 5 DAYS INCUBATION 04/30/19 09:00 Blood - Peripheral Venous Blood Culture - Final NO GROWTH AFTER 5 DAYS INCUBATION 04/30/19 14:28 Body Fluid - Other Gram Stain - Final 04/30/19 14:28 Body Fluid - Other Body Fluid Culture - Final NO GROWTH OF AEROBIC ORGANISMS AFTER 48 HOURS INCUBATION 04/30/19 14:28 Body Fluid - Other Anaerobic Culture - Final NO ANAEROBES WERE ISOLATED 04/30/19 14:38 Abdomen Gram Stain - Final 04/30/19 12:30 Urine - Urine Clean Catch Urine Culture - Final NO GROWTH OBTAINED ASSESSMENT AND PLAN: Acute Hypoxic Respiratory Failure Perforated Duodenal Ulcer s/p Ex-lap/Jack Patch Repair Peritonitis Septic Shock Acute Kidney Injury Elevated LFTs likely Ischemic Injury Hyponatremia Volume Overload Anemia Thrombocytopenia Mental Retardation HTN DM - continue antibiotics, antifungals per ID , repeat bcxl sent - monitor drain output - continue lasix for O>I - monitor urine output, creatinine - monitor CBC - taper FiO2 to keep SpO2 >90% - protonix - continue TPN - DVT/GI prophylaxis - Wean trials as tolerated after more diuresis, likely extubation tomorrow - continue ICU monitoring - prognosis kianaed Reinaldo ACNP [id number] 35min CCT evalutating pt and formulating plan.
[2019-05-09 10:25] LABS: ANISOCYTOSIS 1+; MACROCYTOSIS 1+; PLATELET ESTIMATE DECREASED; TARGET CELLS 2+
[2019-05-09] MEDS: POTASSIUM CHLORIDE IVPB SCH (17:00)
[2019-05-09] MEDS: [UNRECOGNIZED DRUG - OTHER] IVPB SCH (17:00)
[2019-05-09] MEDS: SODIUM ACETATE IVPB SCH (17:00)
[2019-05-09] MEDS: SODIUM CHLORIDE IVPB SCH (17:00)
--- NOTE | 2019-05-09 17:10 | PN ---
Progress Note (short form) - Note Progress Note: covering dr swann PRATEEK septic shock perforated duodenal ulcer fluid overload MR DM possible ckd transamitis hyperkalemia hyponatremia Current Medications Furosemide (Lasix Injection -) 60 mg IVPUSH BID@0600,1400 [facility] Last Admin: 05/09/19 14:52 Dose: 60 mg Heparin Sodium (Porcine) (Heparin -) 5,000 unit SQ TID [facility] Last Admin: 05/09/19 14:52 Dose: 5,000 unit Ceftriaxone Sodium 2 gm/ (Dextrose) 100 mls @ 100 mls/hr IVPB DAILY [facility]; Protocol Last Admin: 05/09/19 10:07 Dose: 100 mls/hr Metronidazole (Flagyl 500mg Premixed Ivpb -) 500 mg in 100 mls @ 100 mls/hr IVPB Q8H-IV [facility] Last Admin: 05/09/19 10:03 Dose: 100 mls/hr Fat Emulsion-Soy/MCT/[place]/Fish Oil (Smoflipid 20% Iv Fat Emulsion) 250 mls @ 20.833 mls/hr IV DAILY@2200 [facility] Last Admin: 05/08/19 21:23 Dose: 20.833 mls/hr Potassium Chloride 40 meq/Sodium Acetate 40 meq/ Sodium Chloride 40 meq/ Insulin Human Regular 30 units/ Folic Acid 1 mg/ Multivitamins/Minerals 10 ml/ Calcium Gluconate 1,000 mg/ Sterile Water/ Amino Acids/ Dextrose 1,000 mls @ 41.667 mls/hr IVPB DAILY@1600 [facility] Insulin Aspart (Novolog Vial Sliding Scale -) 1 vial SQ TIDAC [facility]; Protocol Last Admin: 05/09/19 11:57 Dose: 8 units Ondansetron HCl (Zofran Injection) 4 mg IVPUSH Q6H PRN PRN Reason: NAUSEA AND/OR VOMITING Pantoprazole Sodium (Protonix Iv) 40 mg IVPUSH BID [facility] Last Admin: 05/09/19 10:07 Dose: 40 mg Last Vital Signs Temp Pulse Resp BP Pulse Ox 100 F H 109 H 21 H 124/69 100 05/09/19 06:00 05/09/19 08:32 05/09/19 16:42 05/09/19 08:00 05/09/19 09:00 on vent / unresponsive febrile CBC, BMP 05/09/19 05:40 05/09/19 05:40 Sepsis secondary to perforated viscus S/p repair of perforated bowel x 9 days Respiratory failure- on vent Unresponsive off sedation Thrombocytopenia resolving along with resolving leukocytosis Prateek- renal furesponding to IV lasix, still volume overloaded PLAN - overweaver is starting to improve - bun rising, consider decreasing the protein in the tpn - repeat labs in am - cont lasix - cxr improving - vent support - sodium is improving - maintain map 65
[2019-05-09] MEDS: FAT EMUL/SOY/MCT/OLIV/FISH OIL 250 ML IV SCH (21:34)
[2019-05-10] MEDS: FUROSEMIDE 40 MG/4 ML INJECTABLE VIAL IVPUSH SCH ×2 (05:41→15:41)
[2019-05-10] MEDS: HEPARIN NA (PORCINE) 5,000 UNITS/ML 1ML VIAL SQ SCH ×3 (05:41→21:02)
[2019-05-10] MEDS: INSULIN SLIDING SCALE (NOVOLOG) 1 VIAL SQ SCH ×3 (06:04→17:14)
[2019-05-10 06:31] LABS: HEMATOCRIT 25.5 % (35.4-49); HEMOGLOBIN 8.7 GM/dL (11.7-16.9); MCH 28.4 pg (25.7-33.7); MCHC 34.2 g/dl (32.0-35.9); MEAN PLT VOLUME 10.6 fl (7.5-11.1); PLATELET COUNT 202 K/MM3 (134-434); RBC 3.08 M/mm3 (4.00-5.60); RDW 14.8 % (11.9-15.9); WHITE BLOOD COUNT 19.9 K/mm3 (4.0-10.0)
[2019-05-10 06:47] LABS: CALCIUM 8.4 mg/dL (8.5-10.1); CREATININE 3.5 mg/dL (0.55-1.3); MAGNESIUM 1.8 mg/dL (1.8-2.4); PHOSPHOROUS 4.5 mg/dL (2.5-4.9); POTASSIUM 4.1 mmol/L (3.5-5.1)
--- NOTE | 2019-05-10 08:11 | PN ---
Progress Note (short form) - Note Progress Note: PULM/CCM SUBJECTIVE: Patient seen and examined in the ICU. -wbc down trending - Cr downtrending with diuresis -low grade temp, bcxl from 05/08 NGTD OBJECTIVE: Vital Signs Temp 100 F H 05/10/19 05:00 Pulse 113 H 05/10/19 07:20 Resp 22 H 05/10/19 07:20 BP 106/62 05/10/19 07:20 Pulse Ox 100 05/10/19 07:19 Intake & Output 05/09/19 05/09/19 05/10/19 11:59 23:59 11:59 Intake Total 437.9 125.1 641.6 Output Total 1940 3450 660 Balance -1502.1 -3324.9 -18.4 Weight 93.077 kg 88.859 kg Intake: IV 291.9 208 TPN 291.9 208 IVPB 146 100 TPN/PPN 125.1 333.6 Output: Gastric Drainage 50 50 Drainage 90 100 60 lex 90 100 60 Urine 1800 3300 600 Banuelos 1800 3300 600 Other: Voiding Method Indwelling Catheter Indwelling Catheter Indwelling Catheter Bowel Movement No No No Weight Measurement Method [facility] Current Medications Furosemide (Lasix Injection -) 60 mg IVPUSH BID@0600,1400 [facility] Last Admin: 05/10/19 05:41 Dose: 60 mg Heparin Sodium (Porcine) (Heparin -) 5,000 unit SQ TID [facility] Last Admin: 05/10/19 05:41 Dose: 5,000 unit Ceftriaxone Sodium 2 gm/ (Dextrose) 100 mls @ 100 mls/hr IVPB DAILY [facility]; Protocol Last Admin: 05/09/19 10:07 Dose: 100 mls/hr Metronidazole (Flagyl 500mg Premixed Ivpb -) 500 mg in 100 mls @ 100 mls/hr IVPB Q8H-IV [facility] Last Admin: 05/10/19 02:49 Dose: 100 mls/hr Fat Emulsion-Soy/MCT/[place]/Fish Oil (Smoflipid 20% Iv Fat Emulsion) 250 mls @ 20.833 mls/hr IV DAILY@2200 [facility] Last Admin: 05/09/19 21:34 Dose: 20.833 mls/hr Potassium Chloride 40 meq/Sodium Acetate 40 meq/ Sodium Chloride 40 meq/ Insulin Human Regular 30 units/ Folic Acid 1 mg/ Multivitamins/Minerals 10 ml/ Calcium Gluconate 1,000 mg/ Sterile Water/ Amino Acids/ Dextrose 1,000 mls @ 41.667 mls/hr IVPB DAILY@1600 [facility] Last Admin: 05/09/19 17:00 Dose: 41.667 mls/hr Insulin Aspart (Novolog Vial Sliding Scale -) 1 vial SQ TIDAC [facility]; Protocol Last Admin: 05/10/19 06:04 Dose: 4 units Ondansetron HCl (Zofran Injection) 4 mg IVPUSH Q6H PRN PRN Reason: NAUSEA AND/OR VOMITING Pantoprazole Sodium (Protonix Iv) 40 mg IVPUSH BID [facility] Last Admin: 05/09/19 21:34 Dose: 40 mg Gen: intubated, opens eyes to noxious Heart: RRR Lung: scattered rhonchi Abd:soft, +LEX with slighty cloudy serosanguinous, hypoactive bs Ext: + edema, improved per report CBCD WBC 19.9 K/mm3 (4.0-10.0) H 05/10/19 05:25 RBC 3.08 M/mm3 (4.00-5.60) L 05/10/19 05:25 Hgb 8.7 GM/dL (11.7-16.9) L 05/10/19 05:25 Hct 25.5 % (35.4-49) L 05/10/19 05:25 MCV 83.0 fl (80-96) 05/10/19 05:25 MCHC 34.2 g/dl (32.0-35.9) 05/10/19 05:25 RDW 14.8 % (11.9-15.9) 05/10/19 05:25 Plt Count 202 K/MM3 (134-434) D 05/10/19 05:25 MPV 10.6 fl (7.5-11.1) 05/10/19 05:25 CMP Sodium 143 mmol/L (136-145) 05/10/19 05:25 Potassium 4.1 mmol/L (3.5-5.1) 05/10/19 05:25 Chloride 110 mmol/L (98-107) H 05/10/19 05:25 Carbon Dioxide 26 mmol/L (21-32) 05/10/19 05:25 Anion Gap 8 MMOL/L (8-16) 05/10/19 05:25 BUN 111.0 mg/dL (7-18) H* 05/10/19 05:25 Creatinine 3.5 mg/dL (0.55-1.3) H 05/10/19 05:25 Calcium 8.4 mg/dL (8.5-10.1) L 05/10/19 05:25 Total Bilirubin 2.5 mg/dL (0.2-1) H 05/09/19 05:40 AST 55 U/L (15-37) H 05/09/19 05:40 ALT 137 U/L (13-61) H 05/09/19 05:40 Alkaline Phosphatase 161 U/L (45-117) H 05/09/19 05:40 Total Protein 4.5 g/dl (6.4-8.2) L 05/09/19 05:40 Albumin 1.4 g/dl (3.4-5.0) L 05/09/19 05:40 Microbiology 05/08/19 05:50 Blood - Peripheral Venous Blood Culture - Preliminary NO GROWTH OBTAINED AFTER 24 HOURS, INCUBATION TO CONTINUE FOR 4 DAYS. 05/08/19 05:55 Blood - Peripheral Venous Blood Culture - Preliminary NO GROWTH OBTAINED AFTER 24 HOURS, INCUBATION TO CONTINUE FOR 4 DAYS. 04/30/19 09:00 Blood - Peripheral Venous Blood Culture - Final NO GROWTH AFTER 5 DAYS INCUBATION 04/30/19 09:00 Blood - Peripheral Venous Blood Culture - Final NO GROWTH AFTER 5 DAYS INCUBATION 04/30/19 14:28 Body Fluid - Other Gram Stain - Final 04/30/19 14:28 Body Fluid - Other Body Fluid Culture - Final NO GROWTH OF AEROBIC ORGANISMS AFTER 48 HOURS INCUBATION 04/30/19 14:28 Body Fluid - Other Anaerobic Culture - Final NO ANAEROBES WERE ISOLATED 04/30/19 14:38 Abdomen Gram Stain - Final 04/30/19 12:30 Urine - Urine Clean Catch Urine Culture - Final NO GROWTH OBTAINED ASSESSMENT AND PLAN: Acute Hypoxic Respiratory Failure Perforated Duodenal Ulcer s/p Ex-lap/Jack Patch Repair Peritonitis Septic Shock Acute Kidney Injury Elevated LFTs likely Ischemic Injury Hyponatremia Volume Overload Anemia Thrombocytopenia Mental Retardation HTN DM - continue antibiotics, antifungals per ID , repeat bcxl ngtd - monitor drain output, has bowel sounds - continue lasix for O>I, is out 10L in last 3days - monitor urine output, creatinine, downtrending with diuresis - monitor CBC - taper FiO2 to keep SpO2 >90% - protonix - continue TPN , decreased lipids given high BUN - DVT/GI prophylaxis - extubate to HFNC, significant likelyhood of reintubation but is passing breathing trial well, has cough/gag. - continue ICU monitoring - prognosis guarded Reinaldo ACNP [id number] 35min CCT evalutating pt and formulating plan.
[2019-05-10] MEDS: PANTOPRAZOLE SODIUM 40 MG VIAL IVPUSH SCH ×2 (09:02→21:03)
--- NOTE | 2019-05-10 09:38 | PN ---
Progress Note (short form) - Note Progress Note: remains intubated sedation off- remains unresponsive on TPN low grade temp- cultures sent and pending being diuresed Vital Signs Period Temp Pulse Resp BP Sys/Booth Pulse Ox Last 24 Hr 100 F-100.2 F 102-122 16-23 106-132/59-74 100-100 cor-rrr llungs decreased bs at bases abd soft, +ASHLEY incision with packing ext +edema CBC, BMP 05/10/19 05:25 05/10/19 05:25 Microbiology 05/08/19 05:50 Blood - Peripheral Venous Blood Culture - Preliminary NO GROWTH OBTAINED AFTER 24 HOURS, INCUBATION TO CONTINUE FOR 4 DAYS. 05/08/19 05:55 Blood - Peripheral Venous Blood Culture - Preliminary NO GROWTH OBTAINED AFTER 24 HOURS, INCUBATION TO CONTINUE FOR 4 DAYS. 04/30/19 09:00 Blood - Peripheral Venous Blood Culture - Final NO GROWTH AFTER 5 DAYS INCUBATION 04/30/19 09:00 Blood - Peripheral Venous Blood Culture - Final NO GROWTH AFTER 5 DAYS INCUBATION 04/30/19 14:28 Body Fluid - Other Gram Stain - Final 04/30/19 14:28 Body Fluid - Other Body Fluid Culture - Final NO GROWTH OF AEROBIC ORGANISMS AFTER 48 HOURS INCUBATION 04/30/19 14:28 Body Fluid - Other Anaerobic Culture - Final NO ANAEROBES WERE ISOLATED 04/30/19 14:38 Abdomen Gram Stain - Final 04/30/19 12:30 Urine - Urine Clean Catch Urine Culture - Final NO GROWTH OBTAINED a/p low grade temps POD #10-remain intubated, remains unresponsive off sedation sepsis secondary to perforated viscus s/p repair of perforated bowel respiratory failure- remains intubated domenic- responding to IV lasix, still volume overloaded continue ceftriaxone /flagyl repeat blood cultures sent and pending please ask surgery to come back to assess wound and ASHLEY drain Problem List - Problems (1) Sepsis Code(s): A41.9 - SEPSIS, UNSPECIFIED ORGANISM (2) Bowel perforation Code(s): K63.1 - PERFORATION OF INTESTINE (NONTRAUMATIC) (3) DOMENIC (acute kidney injury) Code(s): N17.9 - ACUTE KIDNEY FAILURE, UNSPECIFIED (4) Shock liver Code(s): K72.00 - ACUTE AND SUBACUTE HEPATIC FAILURE WITHOUT COMA
[2019-05-10] MEDS ORDERED: DEXTROSE 5%-WATER 100 ML IVPB ONE (10:03)
[2019-05-10] MEDS: CEFTRIAXONE 2 GM in DEXTROSE 5%-WATER 100 ML IVPB SCH (10:05)
[2019-05-10] MEDS ORDERED: FUROSEMIDE 40 MG/4 ML INJECTABLE VIAL IVPUSH ONE (10:45)
[2019-05-10] MEDS ORDERED: ROCURONIUM BROMIDE 50 MG/5 ML VIAL IV ONE (14:14)
[2019-05-10] MEDS ORDERED: RAPID SEQUENCE INTUBATION KIT NR ONE (14:19)
[2019-05-10] MEDS ORDERED: ETOMIDATE 40 MG/20 ML VIAL IVPUSH ONE (14:28)
[2019-05-10] MEDS ORDERED: PHENYLEPHRINE HCL 10 MG/1 ML SINGLE DOSE VIAL ONE (14:34)
[2019-05-10] MEDS: PHENYLEPHRINE HCL 20,000 MCG in SODIUM CHLORIDE 248 ML IVPB SCH ×2 (15:00→21:05)
--- NOTE | 2019-05-10 16:13 | PN ---
Progress Note (short form) - Note Progress Note: covering dr swann PRATEEK septic shock perforated duodenal ulcer fluid overload MR DM possible ckd transamitis hyperkalemia hyponatremia Current Medications Furosemide (Lasix Injection -) 60 mg IVPUSH BID@0600,1400 [facility] Last Admin: 05/10/19 15:41 Dose: 60 mg Heparin Sodium (Porcine) (Heparin -) 5,000 unit SQ TID [facility] Last Admin: 05/10/19 15:40 Dose: 5,000 unit Ceftriaxone Sodium 2 gm/ (Dextrose) 100 mls @ 100 mls/hr IVPB DAILY [facility]; Protocol Last Admin: 05/10/19 10:05 Dose: 100 mls/hr Metronidazole (Flagyl 500mg Premixed Ivpb -) 500 mg in 100 mls @ 100 mls/hr IVPB Q8H-IV [facility] Last Admin: 05/10/19 09:01 Dose: 100 mls/hr Potassium Chloride 40 meq/Sodium Acetate 40 meq/ Sodium Chloride 40 meq/ Insulin Human Regular 30 units/ Folic Acid 1 mg/ Multivitamins/Minerals 10 ml/ Calcium Gluconate 1,000 mg/ Sterile Water/ Amino Acids/ Dextrose 1,000 mls @ 41.667 mls/hr IVPB DAILY@1600 [facility] Last Admin: 05/09/19 17:00 Dose: 41.667 mls/hr Fat Emulsion-Soy/MCT/[place]/Fish Oil (Smoflipid 20% Iv Fat Emulsion) 125 mls @ 20.833 mls/hr IV DAILY@2200 [facility] Phenylephrine HCl 20,000 mcg/ (Sodium Chloride) 250 mls @ 75 mls/hr IVPB ASDIR [facility]; Protocol Last Titration: 05/10/19 15:54 Dose: 50 mcg/min, 37.5 mls/hr Insulin Aspart (Novolog Vial Sliding Scale -) 1 vial SQ TIDAC [facility]; Protocol Last Admin: 05/10/19 11:39 Dose: 6 units Ondansetron HCl (Zofran Injection) 4 mg IVPUSH Q6H PRN PRN Reason: NAUSEA AND/OR VOMITING Pantoprazole Sodium (Protonix Iv) 40 mg IVPUSH BID [facility] Last Admin: 05/10/19 09:02 Dose: 40 mg Last Vital Signs Temp Pulse Resp BP Pulse Ox 99.6 F 118 H 22 H 143/81 100 05/10/19 14:00 05/10/19 15:54 05/10/19 14:00 05/10/19 15:54 05/10/19 08:29 on vent / unresponsive febrile unresponsive on vent Lungs vented Heart RRR Abd soft nontender Ext no edema CBC, BMP 05/10/19 05:25 05/10/19 05:25 CBC, BMP 05/09/19 05:40 05/09/19 05:40 IMP s/p reintubation Sepsis secondary to perforated viscus S/p repair of perforated bowel x 9 days Respiratory failure- on vent Unresponsive off sedation Thrombocytopenia resolving along with resolving leukocytosis Prateek- renal function responding to IV lasix, still volume overloaded renal function better PLAN continue present tx
--- NOTE | 2019-05-10 17:12 | PN ---
Progress Note, Physician Chief Complaint: Patient General intubated due to persistent tachycardia and hypoxia - Current Medication List Current Medications: Active Medications Furosemide (Lasix Injection -) 60 mg IVPUSH BID@0600,1400 [facility] Last Admin: 05/10/19 15:41 Dose: 60 mg Heparin Sodium (Porcine) (Heparin -) 5,000 unit SQ TID [facility] Last Admin: 05/10/19 15:40 Dose: 5,000 unit Ceftriaxone Sodium 2 gm/ (Dextrose) 100 mls @ 100 mls/hr IVPB DAILY [facility]; Protocol Last Admin: 05/10/19 10:05 Dose: 100 mls/hr Metronidazole (Flagyl 500mg Premixed Ivpb -) 500 mg in 100 mls @ 100 mls/hr IVPB Q8H-IV [facility] Last Admin: 05/10/19 09:01 Dose: 100 mls/hr Potassium Chloride 40 meq/Sodium Acetate 40 meq/ Sodium Chloride 40 meq/ Insulin Human Regular 30 units/ Folic Acid 1 mg/ Multivitamins/Minerals 10 ml/ Calcium Gluconate 1,000 mg/ Sterile Water/ Amino Acids/ Dextrose 1,000 mls @ 41.667 mls/hr IVPB DAILY@1600 [facility] Last Admin: 05/09/19 17:00 Dose: 41.667 mls/hr Fat Emulsion-Soy/MCT/[place]/Fish Oil (Smoflipid 20% Iv Fat Emulsion) 125 mls @ 20.833 mls/hr IV DAILY@2200 MARYSE Phenylephrine HCl 20,000 mcg/ (Sodium Chloride) 250 mls @ 75 mls/hr IVPB ASDIR [facility]; Protocol Last Titration: 05/10/19 15:54 Dose: 50 mcg/min, 37.5 mls/hr Insulin Aspart (Novolog Vial Sliding Scale -) 1 vial SQ TIDAC [facility]; Protocol Last Admin: 05/10/19 11:39 Dose: 6 units Ondansetron HCl (Zofran Injection) 4 mg IVPUSH Q6H PRN PRN Reason: NAUSEA AND/OR VOMITING Pantoprazole Sodium (Protonix Iv) 40 mg IVPUSH BID [facility] Last Admin: 05/10/19 09:02 Dose: 40 mg - Objective Vital Signs: Vital Signs Temperature 99.6 F 05/10/19 14:00 Pulse Rate 118 H 05/10/19 15:54 Respiratory Rate 18 05/10/19 16:12 Blood Pressure 143/81 05/10/19 15:54 O2 Sat by Pulse Oximetry (%) 100 05/10/19 08:29 General: Off sedation minimally responsive on not in acute distress. HEENT; mucous membranes moist, no anemia, no jaundice, PERRLA, no nystagmus Neck: No JVD, supple, no bruit, thyroid palpably normal, normal carotid pulsations. Chest: Nontender, bilateral basal rales. CVS: S1-S2 regular no murmur/gallop/rub Abdomen: Distended status post surgery, present. Extremities: Generalized anasarca scrotal swelling, bilateral edema feet ., pulses present [employer]: Off sedation minimally responsive sedated Labs: CBC, BMP 05/10/19 05:25 05/10/19 05:25 INR, PTT INR 1.36 (0.83-1.09) H 05/05/19 05:00 Fibrinogen 443.0 mg/dL (238-498) 05/05/19 05:00 Problem List - Problems (1) Sepsis Assessment/Plan: Due to perforated duodenal ulcer continue continue ceftriaxone plus Flagyl remained afebrile T WBC trending normal. Code(s): A41.9 - SEPSIS, UNSPECIFIED ORGANISM (2) Perforated duodenal ulcer Assessment/Plan: POD #6s/p Exlap, Jack patch repair for perforated DU. Remains critically ill. Code(s): K26.5 - CHRONIC OR UNSPECIFIED DUODENAL ULCER WITH PERFORATION (3) DOMENIC (acute kidney injury) Assessment/Plan: Due to sepsis multiorgan failure follow-up urine output, nephrology recommendations and BMP daily Code(s): N17.9 - ACUTE KIDNEY FAILURE, UNSPECIFIED (4) Anasarca Assessment/Plan: Due to hypoproteinemia ICU team is considering TPN Code(s): R60.1 - GENERALIZED EDEMA (5) Thrombocytopenia Assessment/Plan: Due to sepsis, , improving Code(s): D69.6 - THROMBOCYTOPENIA, UNSPECIFIED (6) Anemia Assessment/Plan: H&H is stable to improved Code(s): D64.9 - ANEMIA, UNSPECIFIED (7) Respiratory failure Assessment/Plan: Today extubated but reintubated persistent tachycardia. Problems reviewed: Yes Code(s): J96.90 - RESPIRATORY FAILURE, UNSP, UNSP W HYPOXIA OR HYPERCAPNIA
[2019-05-10] MEDS: SODIUM CHLORIDE IVPB SCH (17:15)
[2019-05-10] MEDS: POTASSIUM CHLORIDE IVPB SCH (17:15)
[2019-05-10] MEDS: [UNRECOGNIZED DRUG - OTHER] IVPB SCH (17:15)
[2019-05-10] MEDS: SODIUM ACETATE IVPB SCH (17:15)
--- NOTE | 2019-05-10 17:25 | PROC ---
Intubation - Intubation Reason for Intubation: Respiratory Failure Time of Intubation: 15:30 Intubation Method: orotracheal Blade used: Mac Tube Size (cm): 7.5 Tube position @ lip (cm): 24 Tube position confirmed by: Direct visualization, CO2 detector, Chest x-ray Breath Sounds after Intubation: equal Post Intubation Xray: Yes Remarks: Grade III view, large area of edema at L aspect of valecula. ETT passed atraumatically. +ETCO2. Secured, connected to MV. Xray ordered
[2019-05-10] MEDS: OLIV IV SCH (21:03)
[2019-05-10] MEDS: FISH OIL IV SCH (21:03)
[2019-05-10] MEDS: SOY IV SCH (21:03)
[2019-05-10] MEDS: FAT EMUL IV SCH (21:03)
[2019-05-10] MEDS: MCT IV SCH (21:03)
[2019-05-11] MEDS: INSULIN SLIDING SCALE (NOVOLOG) 1 VIAL SQ SCH ×3 (06:36→16:10)
[2019-05-11] MEDS: HEPARIN NA (PORCINE) 5,000 UNITS/ML 1ML VIAL SQ SCH ×3 (06:41→21:03)
[2019-05-11] MEDS: FUROSEMIDE 40 MG/4 ML INJECTABLE VIAL IVPUSH SCH ×2 (06:41→12:59)
[2019-05-11 07:18] LABS: BASO % 1.9 % (0-2.0); EOS % 4.7 % (0-4.5); HEMATOCRIT 25.4 % (35.4-49); HEMOGLOBIN 8.6 GM/dL (11.7-16.9); LYMPH % 29.3 % (8-40); MCH 28.7 pg (25.7-33.7); MEAN CELL VOLUME 84.4 fl (80-96); MEAN PLT VOLUME 11.2 fl (7.5-11.1); MONO % 15.6 % (3.8-10.2); NEUT % 48.5 % (42.8-82.8); PLATELET COUNT 226 K/MM3 (134-434); RBC 3.01 M/mm3 (4.00-5.60); WHITE BLOOD COUNT 15.5 K/mm3 (4.0-10.0)
[2019-05-11] MEDS ORDERED: DEXTROSE 5%-WATER 100 ML IVPB ONE (07:19)
[2019-05-11 07:40] LABS: CALCIUM 8.7 mg/dL (8.5-10.1); CREATININE 3.3 mg/dL (0.55-1.3); POTASSIUM 4.2 mmol/L (3.5-5.1)
[2019-05-11 08:07] LABS: BLOOD UREA NITROGEN 109.9 mg/dL (7-18)
--- NOTE | 2019-05-11 08:16 | PN ---
Physical Exam: SUBJECTIVE: Patient seen and examined at bed side , failed extubation today , tracheostomy will be placed on Am per kay , still with fever , NA rising will cut down lasix to 60 daily per nephrology , out put 2000CC OBJECTIVE: Vital Signs Period Temp Pulse Resp BP Sys/Booth Pulse Ox Last 24 Hr 99.6 F-102.2 F 94-125 16-22 99-143/56-81 100-100 GENERAL: Intubated and sedated. demarco in place , surgery wound cover by Gauze , ASHLEY drainage EYES: Pupils equal, round and sluggishly reactive to light. LUNGS: decrease breath sound at the bases HEART: Regular rate and rhythm, normal S1 and S2 without murmur, rub or gallop. ABDOMEN: Soft, not distended, surgical dressing intact. seracenous drainage LOWER EXTREMITIES: 2+ pulses, warm, well-perfused. No calf tenderness. +1 peripheral edema. NEUROLOGICAL: intubated sedated , PEPRLA swollen scrotum less compare to yesterday Laboratory Results - last 24 hr 05/10/19 05/10/19 05/10/19 05:25 11:28 16:59 WBC RBC Hgb Hct MCV MCH MCHC RDW Plt Count MPV Absolute Neuts (auto) Neutrophils % Lymphocytes % Monocytes % Eosinophils % Basophils % Nucleated RBC % Sodium 143 Potassium 4.1 Chloride 110 H Carbon Dioxide 26 Anion Gap 8 BUN 111.0 H* Creatinine 3.5 H Est GFR (CKD-EPI)AfAm 20.18 Est GFR (CKD-EPI)NonAf 17.41 POC Glucometer 260 231 Random Glucose 251 H Calcium 8.4 L Phosphorus 4.5 Magnesium 1.8 Triglycerides 235 H 05/11/19 05/11/19 05/11/19 05:55 06:00 06:00 WBC 15.5 H RBC 3.01 L Hgb 8.6 L Hct 25.4 L MCV 84.4 MCH 28.7 MCHC 34.0 RDW 15.0 Plt Count 226 MPV 11.2 H Absolute Neuts (auto) 7.5 Neutrophils % 48.5 D Lymphocytes % 29.3 D Monocytes % 15.6 H Eosinophils % 4.7 H D Basophils % 1.9 Nucleated RBC % 0 Sodium 147 H Potassium 4.2 Chloride 114 H Carbon Dioxide 26 Anion Gap 8 BUN 109.9 H* Creatinine 3.3 H Est GFR (CKD-EPI)AfAm 21.67 Est GFR (CKD-EPI)NonAf 18.70 POC Glucometer 272 Random Glucose 315 H Calcium 8.7 Phosphorus Magnesium Triglycerides Active Medications Generic Name Dose Route Start Last Admin Trade Name Freq PRN Reason Stop Dose Admin Furosemide 60 mg 05/06/19 06:00 05/11/19 06:41 Lasix Injection - IVPUSH 60 mg BID@0600,1400 MARYSE Administration Heparin Sodium (Porcine) 5,000 unit 05/02/19 22:00 05/11/19 06:41 Heparin - SQ 5,000 unit TID MARYSE Administration Ceftriaxone Sodium 2 gm/ 100 mls @ 100 mls/hr 05/06/19 11:00 05/10/19 10:05 Dextrose IVPB 100 mls/hr DAILY MARYSE Administration Protocol Metronidazole 500 mg in 100 mls @ 100 mls/hr 05/06/19 18:00 05/10/19 22:00 Flagyl 500mg Premixed Ivpb - IVPB 100 mls/hr Q8H-IV MARYSE Administration Potassium Chloride 40 meq/ 1,000 mls @ 41.667 mls/hr 05/09/19 16:00 05/10/19 17:15 Sodium Acetate 40 meq/ Sodium IVPB 41.667 mls/hr Chloride 40 meq/ Insulin Human DAILY@1600 MARYSE Administration Regular 30 units/ Folic Acid 1 mg/ Multivitamins/Minerals 10 ml/ Calcium Gluconate 1,000 mg/ Sterile Water/ Amino Acids/ Dextrose Fat Emulsion-Soy/MCT/[place]/Fish Oil 125 mls @ 20.833 mls/hr 05/10/19 08:41 21:03 Smoflipid 20% Iv Fat Emulsion IV 20.833 mls/hr DAILY@2200 MARYSE Administration Phenylephrine HCl 20,000 mcg/ 250 mls @ 75 mls/hr 05/10/19 14:30 05/10/19 21: 05 Sodium Chloride IVPB 50 mcg/min ASDIR MARYSE 37.5 mls/hr Administration Protocol 100 MCG/MIN Insulin Aspart 1 vial 05/01/19 07:00 05/11/19 06:36 Novolog Vial Sliding Scale - SQ 4 units TIDAC MARYSE Administration Protocol Ondansetron HCl 4 mg 04/30/19 16:45 Zofran Injection IVPUSH Q6H PRN NAUSEA AND/OR VOMITING Pantoprazole Sodium 40 mg 05/06/19 22:00 05/10/19 21:03 Protonix Iv IVPUSH 40 mg BID MARYSE Administration CBC, BMP 05/11/19 06:00 05/11/19 06:00 ASSESSMENT/PLAN: The pt is a 64 yo m w/ PMH MR, HTN, DM, b/l LE swelling who was BIBEMS for a 1 day h/o Hypotension (70/51), lethargy and tachycardia. Patient transferred to ICU intubated for post op management. #Septich shock 2/2 perforated duodenal ulcer (POD# 11) S/P lap choly repair # peritonitis * NGT place surgically. per surgery NGT SHOULD NOT BE REMOVED OR MANIPULATED for 1 week * start TPN cut down protien , replace central line by ICU * cont protonix IV palacios BID * placed on zosyn and fluconazole post op per ID , switch to rocephin/flagyl per ID completed , cont vanco , * gutierrez cx negative thus far * BP stable off levo GTT , off vaso GTT * ICU monitor IV fluids , off pressors * mechanical ventilation maintain o2 sat > 90 * monitor drain out put * monitor urine out put # acute Hypoxic respiratory failure due to septic shock on mechanical ventilation per ICU # Hyperkalemia , resolved # Hypervolemic Hyponatremia 127...133 today decrease fluids IV , and give lasix 60 IV BID push once , # DOMENIC on CKD likely 2/2 septic shock , nephrology consulted , avoid nephrotoxic agents # anemia and thrombocytopenia likely due to sepsis , monitor cbc daily , on Hep sc for prophylaxis , HIT pending ,dc zosyn can cause thrombocytopenai as well , switch to rocephin and flagyl # metabolic acidosis; patient had a lactic acidosis pre op * dc NS @ 75 # transaminitis 2/2 septic sock , trend daily , avoid hepatotoxic agents , improving # mental disability #GI and DVT prophylaxis # monitor in ICU prognosis guarded for trachea on Visit type - Emergency Visit Emergency Visit: Yes ED Registration Date: 04/30/19 Care time: The patient presented to the Emergency Department on the above date and was hospitalized for further evaluation of their emergent condition. - New Patient This patient is new to me today: No - Critical Care Critical Care patient: No ATTENDING PHYSICIAN STATEMENT I saw and evaluated the patient. I reviewed the resident's note and discussed the case with the resident. I agree with the resident's findings and plan as documented. SUBJECTIVE: OBJECTIVE: ASSESSMENT AND PLAN:
--- NOTE | 2019-05-11 08:53 | PN ---
Progress Note (short form) - Note Progress Note: extubated, then re-eintubated yesterday sedation off- remains unresponsive on TPN fever to 102 Vital Signs Period Temp Pulse Resp BP Sys/Booth Pulse Ox Last 24 Hr 99.6 F-102.2 F 94-125 16-22 99-143/56-81 100-100 cor-rrr lungs decreased bs at bases abd +packing in place +ASHLEY +left IJ central line ext +edema still with packing in wound +ASHLEY CBC, BMP 05/11/19 06:00 05/11/19 06:00 cxray markedly improved Microbiology 05/08/19 05:55 Blood - Peripheral Venous Blood Culture - Preliminary NO GROWTH OBTAINED AFTER 48 HOURS, INCUBATION TO CONTINUE FOR 3 DAYS. 05/08/19 05:50 Blood - Peripheral Venous Blood Culture - Preliminary NO GROWTH OBTAINED AFTER 48 HOURS, INCUBATION TO CONTINUE FOR 3 DAYS. 04/30/19 09:00 Blood - Peripheral Venous Blood Culture - Final NO GROWTH AFTER 5 DAYS INCUBATION 04/30/19 09:00 Blood - Peripheral Venous Blood Culture - Final NO GROWTH AFTER 5 DAYS INCUBATION 04/30/19 14:28 Body Fluid - Other Gram Stain - Final 04/30/19 14:28 Body Fluid - Other Body Fluid Culture - Final NO GROWTH OF AEROBIC ORGANISMS AFTER 48 HOURS INCUBATION 04/30/19 14:28 Body Fluid - Other Anaerobic Culture - Final NO ANAEROBES WERE ISOLATED 04/30/19 14:38 Abdomen Gram Stain - Final 04/30/19 12:30 Urine - Urine Clean Catch Urine Culture - Final NO GROWTH OBTAINED a/p fevers-repeat blood cultures, change central line POD #11-remain intubated, remains unresponsive off sedation sepsis secondary to perforated viscus s/p repair of perforated bowel respiratory failure- remains intubated domenic- responding to IV lasix, still volume overloaded please ask surgery to come back to assess wound and ASHLEY drain d/c rocephin/flagyl d/w icu staff vancomycin one gram after line change and blood cultures- vanco trough in am Problem List - Problems (1) Sepsis Code(s): A41.9 - SEPSIS, UNSPECIFIED ORGANISM (2) Bowel perforation Code(s): K63.1 - PERFORATION OF INTESTINE (NONTRAUMATIC) (3) DOMENIC (acute kidney injury) Code(s): N17.9 - ACUTE KIDNEY FAILURE, UNSPECIFIED (4) Shock liver Code(s): K72.00 - ACUTE AND SUBACUTE HEPATIC FAILURE WITHOUT COMA
[2019-05-11] MEDS: CEFTRIAXONE 2 GM in DEXTROSE 5%-WATER 100 ML IVPB SCH (09:03)
[2019-05-11] MEDS: PANTOPRAZOLE SODIUM 40 MG VIAL IVPUSH SCH ×2 (09:03→21:03)
[2019-05-11] MEDS ORDERED: VANCOMYCIN HCL 1,250 MG in DEXTROSE 5%-WATER - 250 ML IVPB ONE (09:12)
[2019-05-11] MEDS ORDERED: MIDAZOLAM HCL 5 MG/1 ML Single Dose Vial ONE (12:03)
[2019-05-11] MEDS ORDERED: MIDAZOLAM HCL 2 MG/2 ML SINGLE DOSE VIAL IVPUSH ONE (12:04)
[2019-05-11 12:14] LABS: ANISOCYTOSIS 1+; MACROCYTOSIS 0; PLATELET ESTIMATE NORMAL; TARGET CELLS 2+; TEAR DROP CELLS 1+
[2019-05-11] MEDS ORDERED: PT OWN MED DRAWER 7, Y5N ONE ×2 (12:34→20:48)
--- NOTE | 2019-05-11 13:13 | PN ---
Teaching Attending Note Name of Resident: Karla Billingsley ATTENDING PHYSICIAN STATEMENT I saw and evaluated the patient. I reviewed the resident's note and discussed the case with the resident. I agree with the resident's findings and plan as documented. SUBJECTIVE: Patient seen and examined in the ICU. Remains intubated Off levophed drip. OBJECTIVE: Intake & Output 05/08/19 05/09/19 05/10/19 05/11/19 23:59 23:59 23:59 23:59 Intake Total 225 563.0 1869.6 486 Output Total 5710 5390 2910 2130 Balance -5485 -4827.0 -1040.4 -1644 Weight 212 lb 6.4 oz 205 lb 3.2 oz 195 lb 14.4 oz 193 lb 9.6 oz Last Vital Signs Temp Pulse Resp BP Pulse Ox 101.2 F H 144 H 30 H 105/57 L 100 05/11/19 13:00 05/11/19 13:02 05/11/19 13:02 05/11/19 13:02 05/11/19 12:11 Active Medications Furosemide (Lasix Injection -) 60 mg IVPUSH BID@0600,1400 [facility] Last Admin: 05/11/19 12:59 Dose: 60 mg Heparin Sodium (Porcine) (Heparin -) 5,000 unit SQ TID [facility] Last Admin: 05/11/19 12:59 Dose: 5,000 unit Potassium Chloride 40 meq/Sodium Acetate 40 meq/ Sodium Chloride 40 meq/ Insulin Human Regular 30 units/ Folic Acid 1 mg/ Multivitamins/Minerals 10 ml/ Calcium Gluconate 1,000 mg/ Sterile Water/ Amino Acids/ Dextrose 1,000 mls @ 41.667 mls/hr IVPB DAILY@1600 [facility] Last Admin: 05/10/19 17:15 Dose: 41.667 mls/hr Fat Emulsion-Soy/MCT/[place]/Fish Oil (Smoflipid 20% Iv Fat Emulsion) 125 mls @ 20.833 mls/hr IV DAILY@2200 [facility] Last Admin: 05/10/19 21:03 Dose: 20.833 mls/hr Insulin Aspart (Novolog Vial Sliding Scale -) 1 vial SQ TIDAC [facility]; Protocol Last Admin: 05/11/19 10:52 Dose: 8 units Ondansetron HCl (Zofran Injection) 4 mg IVPUSH Q6H PRN PRN Reason: NAUSEA AND/OR VOMITING Pantoprazole Sodium (Protonix Iv) 40 mg IVPUSH BID MARYSE Last Admin: 05/11/19 09:03 Dose: 40 mg Gen: intubated, sedated Heart: RRR Lung: scattered rhonchi Abd:soft, +ASHLEY with serosanguinous Ext: + edema Laboratory Results - last 24 hr 05/10/19 05/11/19 05/11/19 16:59 05:55 06:00 WBC 15.5 H RBC 3.01 L Hgb 8.6 L Hct 25.4 L MCV 84.4 MCH 28.7 MCHC 34.0 RDW 15.0 Plt Count 226 MPV 11.2 H Absolute Neuts (auto) 7.5 Neutrophils % 48.5 D Neutrophils % (Manual) 51.5 Band Neutrophils % 3.1 Lymphocytes % 29.3 D Lymphocytes % (Manual) 28.9 D Monocytes % 15.6 H Monocytes % (Manual) 3 L Eosinophils % 4.7 H D Eosinophils % (Manual) 6.2 H D Basophils % 1.9 Basophils % (Manual) 0.0 Myelocytes % (Man) 2 D Promyelocytes % (Man) 1 D Blast Cells % (Manual) 0 Nucleated RBC % 1 H Metamyelocytes 0 Hypochromia 0 Platelet Estimate Normal Platelet Comment Present Polychromasia 1+ Poikilocytosis 1+ Anisocytosis 1+ Microcytosis 0 Macrocytosis 0 Target Cells 2+ Tear Drop Cells 1+ Sodium Potassium Chloride Carbon Dioxide Anion Gap BUN Creatinine Est GFR (CKD-EPI)AfAm Est GFR (CKD-EPI)NonAf POC Glucometer 231 272 Random Glucose Calcium 05/11/19 05/11/19 06:00 10:47 WBC RBC Hgb Hct MCV MCH MCHC RDW Plt Count MPV Absolute Neuts (auto) Neutrophils % Neutrophils % (Manual) Band Neutrophils % Lymphocytes % Lymphocytes % (Manual) Monocytes % Monocytes % (Manual) Eosinophils % Eosinophils % (Manual) Basophils % Basophils % (Manual) Myelocytes % (Man) Promyelocytes % (Man) Blast Cells % (Manual) Nucleated RBC % Metamyelocytes Hypochromia Platelet Estimate Platelet Comment Polychromasia Poikilocytosis Anisocytosis Microcytosis Macrocytosis Target Cells Tear Drop Cells Sodium 147 H Potassium 4.2 Chloride 114 H Carbon Dioxide 26 Anion Gap 8 BUN 109.9 H* Creatinine 3.3 H Est GFR (CKD-EPI)AfAm 21.67 Est GFR (CKD-EPI)NonAf 18.70 POC Glucometer 310 Random Glucose 315 H Calcium 8.7 ASSESSMENT AND PLAN: Acute Hypoxic Respiratory Failure Perforated Duodenal Ulcer s/p Ex-lap/Jack Patch Repair Peritonitis Septic Shock Acute Kidney Injury Elevated LFTs likely Ischemic Injury Hyponatremia Volume Overload Anemia Thrombocytopenia Mental Retardation HTN DM - TLC to be changed - continue antibiotics, antifungals per ID - monitor drain output - monitor urine output, creatinine - monitor CBC - taper FiO2 to keep SpO2 >90% - protonix - monitor WBC trend - continue TPN - DVT/GI prophylaxis - continue ICU monitoring - prognosis guarded - Will need Trach Dr Desai Critical care time spent in reviewing chart, evaluating patient and formulating plan 36 min
--- NOTE | 2019-05-11 14:22 | PN ---
Progress Note, Physician History of Present Illness: Pt seen and examined at bedside. He remains in the ICU. He remains intubated. He was extubated and re-intubated over the weekend. - Current Medication List Current Medications: Active Medications Furosemide (Lasix Injection -) 60 mg IVPUSH BID@0600,1400 [facility] Last Admin: 05/11/19 12:59 Dose: 60 mg Heparin Sodium (Porcine) (Heparin -) 5,000 unit SQ TID [facility] Last Admin: 05/11/19 12:59 Dose: 5,000 unit Potassium Chloride 40 meq/Sodium Acetate 40 meq/ Sodium Chloride 40 meq/ Insulin Human Regular 30 units/ Folic Acid 1 mg/ Multivitamins/Minerals 10 ml/ Calcium Gluconate 1,000 mg/ Sterile Water/ Amino Acids/ Dextrose 1,000 mls @ 41.667 mls/hr IVPB DAILY@1600 [facility] Stop: 05/11/19 15:59 Last Admin: 05/10/19 17:15 Dose: 41.667 mls/hr Fat Emulsion-Soy/MCT/[place]/Fish Oil (Smoflipid 20% Iv Fat Emulsion) 125 mls @ 20.833 mls/hr IV DAILY@2200 [facility] Last Admin: 05/10/19 21:03 Dose: 20.833 mls/hr Potassium Chloride 40 meq/Sodium Acetate 40 meq/ Insulin Human Regular 40 units / Folic Acid 1 mg/ Multivitamins/Minerals 10 ml/ Chromium/Copper/Manganese/Zinc 1 ml/Sterile Water/ Amino Acids/Dextrose 1,200 mls @ 50 mls/hr IVPB DAILY@1600 [facility] Insulin Aspart (Novolog Vial Sliding Scale -) 1 vial SQ TIDAC [facility]; Protocol Last Admin: 05/11/19 10:52 Dose: 8 units Ondansetron HCl (Zofran Injection) 4 mg IVPUSH Q6H PRN PRN Reason: NAUSEA AND/OR VOMITING Pantoprazole Sodium (Protonix Iv) 40 mg IVPUSH BID [facility] Last Admin: 05/11/19 09:03 Dose: 40 mg - Objective Vital Signs: Vital Signs Temperature 101.2 F H 05/11/19 13:00 Pulse Rate 133 H 05/11/19 14:18 Respiratory Rate 30 H 05/11/19 13:02 Blood Pressure 105/56 L 05/11/19 14:18 O2 Sat by Pulse Oximetry (%) 100 05/11/19 12:11 Constitutional: Yes: Calm HENT: Yes: Atraumatic Cardiovascular: Yes: S1, S2 Respiratory: Yes: Mechanically Ventilated Gastrointestinal: Yes: Soft Genitourinary: Yes: Banuelos Present Musculoskeletal: Yes: Muscle Weakness Edema: LLE: Trace, RLE: Trace Neurological: Yes: Lethargy Labs: CBC, BMP 05/11/19 06:00 05/11/19 06:00 INR, PTT INR 1.36 (0.83-1.09) H 05/05/19 05:00 Fibrinogen 443.0 mg/dL (238-498) 05/05/19 05:00 Assessment/Plan Current Medications Generic Name Dose Route Start Last Admin Trade Name Freq PRN Reason Stop Dose Admin Furosemide 60 mg 05/06/19 06:00 05/11/19 12:59 Lasix Injection - IVPUSH 60 mg BID@0600,1400 MARYSE Administration Heparin Sodium (Porcine) 5,000 unit 05/02/19 22:00 05/11/19 12:59 Heparin - SQ 5,000 unit TID MARYSE Administration Potassium Chloride 40 meq/ 1,000 mls @ 41.667 mls/hr 05/09/19 16:00 05/10/19 17:15 Sodium Acetate 40 meq/ Sodium IVPB 05/11/19 15:59 41.667 mls/hr Chloride 40 meq/ Insulin Human DAILY@1600 MARYSE Administration Regular 30 units/ Folic Acid 1 mg/ Multivitamins/Minerals 10 ml/ Calcium Gluconate 1,000 mg/ Sterile Water/ Amino Acids/ Dextrose Fat Emulsion-Soy/MCT/[place]/Fish Oil 125 mls @ 20.833 mls/hr 05/10/19 08:41 21:03 Smoflipid 20% Iv Fat Emulsion IV 20.833 mls/hr DAILY@2200 MARYSE Administration Potassium Chloride 40 meq/ 1,200 mls @ 50 mls/hr 05/11/19 16:00 Sodium Acetate 40 meq/ Insulin IVPB Human Regular 40 units/ Folic DAILY@1600 MARYSE Acid 1 mg/ Multivitamins/ Minerals 10 ml/ Chromium/ Copper/[place]/Zinc 1 ml/ Sterile Water/ Amino Acids/ Dextrose Insulin Aspart 1 vial 05/01/19 07:00 05/11/19 10:52 Novolog Vial Sliding Scale - SQ 8 units TIDAC MARYSE Administration Protocol Ondansetron HCl 4 mg 04/30/19 16:45 Zofran Injection IVPUSH Q6H PRN NAUSEA AND/OR VOMITING Pantoprazole Sodium 40 mg 05/06/19 22:00 05/11/19 09:03 Protonix Iv IVPUSH 40 mg BID MARYSE Administration IMPRESSION DOMENIC septic shock perforated duodenal ulcer fluid overload MR DM possible ckd transamitis hyperkalemia hyponatremia PLAN - renal function improving - decrease protein in tpn - pt making urine - volume status is improving - lasix as needed - repeat labs in am - discussed with ICU - vent support - sodium is improving - maintain map 65
--- NOTE | 2019-05-11 14:46 | PN ---
Physical Exam: SUBJECTIVE: Patient seen and examined Patient extubated yesterday however did not tolerate for long and was re- intubated. Overnight Tzis495 and cultures sent. OBJECTIVE: Vital Signs Period Temp Pulse Resp BP Sys/Booth Pulse Ox Last 24 Hr 100.1 F-102.2 F 94-146 15-32 105-143/50-81 100-100 GENERAL: intubated, unresponsive HEAD: Normal with no signs of trauma. EYES: sclera anicteric, conjunctiva clear. No ptosis. ENT: Ears normal, nares patent, moist mucous membranes. NGT ~60cm at nares NECK: Trachea midline, full range of motion, supple. LUNGS: coarse b/l BS to auscultation bilaterally. Vent 500, 14, 5, 40% HEART: tachycardic and regular rhythm, S1, S2 without murmur, rub or gallop. ABDOMEN: Soft, nontender, nondistended, hypoactive bowel sounds, surgical dressings overlying mid abd without purulence or signs of infection. ASHLEY with SS drainage : edematous scrotum EXTREMITIES: 2+ pulses, warm, well-perfused, +edema. NEUROLOGICAL: off sedation, unresponsive, does not follow commands, does not open eyes SKIN: Warm, dry, normal turgor, no rashes or lesions noted, edema Laboratory Results - last 24 hr 05/10/19 05/11/19 05/11/19 16:59 05:55 06:00 WBC 15.5 H RBC 3.01 L Hgb 8.6 L Hct 25.4 L MCV 84.4 MCH 28.7 MCHC 34.0 RDW 15.0 Plt Count 226 MPV 11.2 H Absolute Neuts (auto) 7.5 Neutrophils % 48.5 D Neutrophils % (Manual) 51.5 Band Neutrophils % 3.1 Lymphocytes % 29.3 D Lymphocytes % (Manual) 28.9 D Monocytes % 15.6 H Monocytes % (Manual) 3 L Eosinophils % 4.7 H D Eosinophils % (Manual) 6.2 H D Basophils % 1.9 Basophils % (Manual) 0.0 Myelocytes % (Man) 2 D Promyelocytes % (Man) 1 D Blast Cells % (Manual) 0 Nucleated RBC % 1 H Metamyelocytes 0 Hypochromia 0 Platelet Estimate Normal Platelet Comment Present Polychromasia 1+ Poikilocytosis 1+ Anisocytosis 1+ Microcytosis 0 Macrocytosis 0 Target Cells 2+ Tear Drop Cells 1+ Sodium Potassium Chloride Carbon Dioxide Anion Gap BUN Creatinine Est GFR (CKD-EPI)AfAm Est GFR (CKD-EPI)NonAf POC Glucometer 231 272 Random Glucose Calcium 05/11/19 05/11/19 06:00 10:47 WBC RBC Hgb Hct MCV MCH MCHC RDW Plt Count MPV Absolute Neuts (auto) Neutrophils % Neutrophils % (Manual) Band Neutrophils % Lymphocytes % Lymphocytes % (Manual) Monocytes % Monocytes % (Manual) Eosinophils % Eosinophils % (Manual) Basophils % Basophils % (Manual) Myelocytes % (Man) Promyelocytes % (Man) Blast Cells % (Manual) Nucleated RBC % Metamyelocytes Hypochromia Platelet Estimate Platelet Comment Polychromasia Poikilocytosis Anisocytosis Microcytosis Macrocytosis Target Cells Tear Drop Cells Sodium 147 H Potassium 4.2 Chloride 114 H Carbon Dioxide 26 Anion Gap 8 BUN 109.9 H* Creatinine 3.3 H Est GFR (CKD-EPI)AfAm 21.67 Est GFR (CKD-EPI)NonAf 18.70 POC Glucometer 310 Random Glucose 315 H Calcium 8.7 Active Medications Generic Name Dose Route Start Last Admin Trade Name Freq PRN Reason Stop Dose Admin Furosemide 60 mg 05/06/19 06:00 05/11/19 12:59 Lasix Injection - IVPUSH 60 mg BID@0600,1400 MARYSE Administration Heparin Sodium (Porcine) 5,000 unit 05/02/19 22:00 05/11/19 12:59 Heparin - SQ 5,000 unit TID MARYSE Administration Potassium Chloride 40 meq/ 1,000 mls @ 41.667 mls/hr 05/09/19 16:00 05/10/19 17:15 Sodium Acetate 40 meq/ Sodium IVPB 41.667 mls/hr Chloride 40 meq/ Insulin Human DAILY@1600 MARYSE Administration Regular 30 units/ Folic Acid 1 mg/ Multivitamins/Minerals 10 ml/ Calcium Gluconate 1,000 mg/ Sterile Water/ Amino Acids/ Dextrose Fat Emulsion-Soy/MCT/[place]/Fish Oil 125 mls @ 20.833 mls/hr 05/10/19 08:41 21:03 Smoflipid 20% Iv Fat Emulsion IV 20.833 mls/hr DAILY@2200 MARYSE Administration Insulin Aspart 1 vial 05/01/19 07:00 05/11/19 10:52 Novolog Vial Sliding Scale - SQ 8 units TIDAC MARYSE Administration Protocol Ondansetron HCl 4 mg 04/30/19 16:45 Zofran Injection IVPUSH Q6H PRN NAUSEA AND/OR VOMITING Pantoprazole Sodium 40 mg 05/06/19 22:00 05/11/19 09:03 Protonix Iv IVPUSH 40 mg BID MARYSE Administration ASSESSMENT/PLAN: 64 year old male with PMH of MR, HTN, DM, b/l LE swelling who was BIBEMS for a 1 day h/o Hypotension (70/51), lethargy and tachycardia, found to have free air under the diaphragm s/p omental patch for duodenal perforation POD11. Post-op admission to ICU intubated for HD monitoring. Neuro -Intubated -patient remains unresponsive, off sedation >24hs -per Juan Jose, patient speaks one word sentences and performs some ADLs without assist Pulmonary -Intubated -Vent: 500, 14, 6, 40% --> CPAP as tolerated -consulted Dr Reese for trach; discussed with assistant city attorney Mr Vigil and patient was consented Cardio -Hypotension --likely 2/2 septic shock -required phenylephrine yesterday and was DCd this morning -CVP goal 8-12, fluids currently held d/t volume overload -LIJ removed and RIJ placed -confirmed with CXR GI -Perforated duodenum --possibly 2/2 freq NSAID usage vs H pylori -Transamnitis --likely shocked liver, levels improving daily ast/alt 213/723 -Lactic Acid improvin/15 3.0 -S/p Ex-Lap w/ Jack Patch([place], 04/30/19) -NGT placed surgically. per surgery NGT SHOULD NOT BE REMOVED OR MANIPULATED for 2+ weeks and remains NPO -ASHLEY drain to stay in place per surgery instructions -surgical packing removed; per surgery instruction: irrigate glory-wound area with saline and cover with dry dressing daily -40mg protonix BID -Abx regimen: s/p flagul, fluc, ceftr now all DCd -tolerating TPN -increased BUN thought to be 2/2 to TPN; protein content changed Renal #DOMENIC --likely 2/2 cardiorenal syndrome - Cr improving 3.3, BUN 109.9 - Nephro([facility]) consult: - continue lasix 60mg BID; follow uop ID -downtrending WBC since surgery, today 15.5 -CTH(05/06/19): neg acute path -CT A/P(05/06/19): free air along the subhepatic space, likely postsurgical -ceftr and flagyl DCd; recommending for DC central line and new ling placement -s/p new ling and 1g vanc with AM vanc level ordered Heme # thrombocytopenia, no resolved - plt 212 stable; H&H stable - HIT panel negative -restarted HSQ TID FEN -holding fluids -TPN -NGT to LWS PPX -Protonix BID -HSQ Dispo -ICU monitoring Visit type - Emergency Visit Emergency Visit: No - New Patient This patient is new to me today: No - Critical Care Critical Care patient: Yes Total Critical Care Time (in minutes): 40 Critical Care Statement: The care of this patient involved high complexity decision making to prevent further life threatening deterioration of the patient 's condition and/or to evaluate & treat vital organ system(s) failure or risk of failure. ATTENDING PHYSICIAN STATEMENT I saw and evaluated the patient. I reviewed the resident's note and discussed the case with the resident. I agree with the resident's findings and plan as documented. SUBJECTIVE: OBJECTIVE: ASSESSMENT AND PLAN:
--- NOTE | 2019-05-11 14:49 | PROC ---
Central Line Insertion Indication: CVP Monitoring, Parenteral Nutrition, Poor Venous Access, Sepsis, Vasopressor Risks and Benefits Explained: Yes Consent on Chart: Yes (Dual physician signature) Central Line: Triple Lumen Catheter Sterile Technique: Yes Ultrasound Guided Assistance: Yes Position: Right Internal Jugular Post Insertion: Yes: Bilateral Breath Sounds, Bilateral Chest Expansion, Chest X-Ray Ordered Sterile Dressing Applied: Yes
[2019-05-11] MEDS ORDERED: [UNRECOGNIZED DRUG - OTHER] IVPB SCH (16:00)
[2019-05-11] MEDS ORDERED: INSULIN REGULAR IVPB SCH (16:00)
[2019-05-11] MEDS ORDERED: POTASSIUM CHLORIDE IVPB SCH (16:00)
[2019-05-11] MEDS ORDERED: SODIUM ACETATE IVPB SCH (16:00)
--- NOTE | 2019-05-11 16:02 | PN ---
Teaching Attending Note Name of Resident: Vidal Aguilar ATTENDING PHYSICIAN STATEMENT I saw and evaluated the patient. I reviewed the resident's note and discussed the case with the resident. I agree with the resident's findings and plan as documented. SUBJECTIVE: Patient remained intubated, ICU team is planning for tracheostomy and change of OBJECTIVE: Vital Signs Temperature 101.2 F H 05/11/19 13:00 Pulse Rate 130 H 05/11/19 14:30 Respiratory Rate 20 05/11/19 14:30 Blood Pressure 112/66 05/11/19 14:30 O2 Sat by Pulse Oximetry (%) 100 05/11/19 12:11 General: On ventilator not in acute distress. HEENT; mucous membranes moist, no anemia, no jaundice, PERRLA, no nystagmus Neck: No JVD, supple, no bruit, thyroid palpably normal, normal carotid pulsations. Chest: Nontender, bilateral basal rales. 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 off sedation CBC, BMP 05/11/19 06:00 05/11/19 06:00 Active Medications Furosemide (Lasix Injection -) 60 mg IVPUSH BID@0600,1400 [facility] Last Admin: 05/11/19 12:59 Dose: 60 mg Heparin Sodium (Porcine) (Heparin -) 5,000 unit SQ TID [facility] Last Admin: 05/11/19 12:59 Dose: 5,000 unit Fat Emulsion-Soy/MCT/[place]/Fish Oil (Smoflipid 20% Iv Fat Emulsion) 125 mls @ 20.833 mls/hr IV DAILY@2200 [facility] Last Admin: 05/10/19 21:03 Dose: 20.833 mls/hr Potassium Chloride 40 meq/Sodium Acetate 40 meq/ Insulin Human Regular 40 units / Folic Acid 1 mg/ Multivitamins/Minerals 10 ml/ Chromium/Copper/[place]/Zinc 1 ml/Sterile Water/ Amino Acids/Dextrose 1,200 mls @ 50 mls/hr IVPB DAILY@1600 [facility] Last Admin: 05/11/19 15:21 Dose: 50 mls/hr Insulin Aspart (Novolog Vial Sliding Scale -) 1 vial SQ TIDAC [facility]; Protocol Last Admin: 05/11/19 10:52 Dose: 8 units Ondansetron HCl (Zofran Injection) 4 mg IVPUSH Q6H PRN PRN Reason: NAUSEA AND/OR VOMITING Pantoprazole Sodium (Protonix Iv) 40 mg IVPUSH BID [facility] Last Admin: 05/11/19 09:03 Dose: 40 mg ASSESSMENT AND PLAN:64 years old man history of mental retardation,, HTN,T2DM, b /l LE swelling who was BIBEMS for a 1 day h/o Hypotension (70/51), lethargy and tachycardia. Patient transferred to ICU intubated for post op management. Patient is on pressures, developed multiorgan failure with thrombocytopenia, s/ p , Jack patch repair for perforated DU. Remains critically ill. Now off pressors Impression: Sepsis due to perforated duodenal ulcer status post exploratory laparotomy and repair for perforated duodenal ulcer. Problem List - Problems (1) Sepsis Assessment/Plan: Due to perforated duodenal ulcer continue improved maintaining blood patient now off antibiotics. Code(s): A41.9 - SEPSIS, UNSPECIFIED ORGANISM (2) Perforated duodenal ulcer Assessment/Plan: s/p Exlap, Jack patch repair for perforated DU. Remains critically ill. Code(s): K26.5 - CHRONIC OR UNSPECIFIED DUODENAL ULCER WITH PERFORATION (3) DOMENIC (acute kidney injury) Assessment/Plan: Due to sepsis multiorgan failure follow-up urine output, nephrology recommendations and BMP daily Code(s): N17.9 - ACUTE KIDNEY FAILURE, UNSPECIFIED (4) Anasarca Assessment/Plan: Due to hypoproteinemia continue TPN Code(s): R60.1 - GENERALIZED EDEMA (5) Thrombocytopenia Assessment/Plan: Due to sepsis, , improving Code(s): D69.6 - THROMBOCYTOPENIA, UNSPECIFIED (6) Anemia Assessment/Plan: H&H is stable to improved Code(s): D64.9 - ANEMIA, UNSPECIFIED (7) Respiratory failure Assessment/Plan: Yesterday failed trial of extubation, now on ventilator, ICU team is planning tracheostomy Code(s): J96.90 - RESPIRATORY FAILURE, UNSP, UNSP W HYPOXIA OR HYPERCAPNIA
--- NOTE | 2019-05-11 16:21 | PN ---
Progress Note (short form) - Note Progress Note: Thoracic Surgery Attending: Pt seen/examined. Briefly, prolonged hospitalization with respiratory failure secondary to perforated DU, ex lap, Jack patch, sepsis and h/o mental retardation and long term patient. He has failed extubation and I am consulted for bedside tracheostomy. He is good candidate. Please obtain consent from family for percutaneous tracheostomy with bronchoscopy in conjunction with Dr. Toscano and/or Lloyd. I will be available to do this on AM if family is agreeable. I have spent 20 minutes including coordination of care with physicians and staff on this patient.
--- NOTE | 2019-05-11 18:56 | PN ---
Progress Note (short form) - Note Progress Note: surgery pt seen and examined. remains intubated and septic. off pressors. off abx per medical team. on tpn. ngt output minimal. lex serous, tmax 101.7 abd- soft, nd, wound clean, Laboratory Tests 05/11/ 06:00 WBC 15.5 H Plan- Pod #11 (Saturday)- no evidence of leakage at rohan patch repair site. no evidence of gastric outlet obstruction. would cont ngt till pod#14. downgrade protonix drip to tid. could try feeds or po on pod#14. would not attempt peg until pod#30 if needed. for trach . cont lex until on full feeds or regular diet. wound should be irrigated daily with saline and dry dressing until closed. rik removed.
[2019-05-11] MEDS: SOY IV SCH (22:40)
[2019-05-11] MEDS: FISH OIL IV SCH (22:40)
[2019-05-11] MEDS: FAT EMUL IV SCH (22:40)
[2019-05-11] MEDS: MCT IV SCH (22:40)
[2019-05-11] MEDS: OLIV IV SCH (22:40)
[2019-05-12] MEDS ORDERED: METOPROLOL TARTRATE 5 MG/5 ML VIAL IVPUSH ONE (04:45)
--- NOTE | 2019-05-12 05:52 | PN ---
Physical Exam: SUBJECTIVE: Patient seen and examined at bed side , intubated sedate d, had fever over night on Meropenem and vanco by level , tracheostomy will be placed on Am per kay , still with fever , NA rising will cut down lasix to 60 daily per nephrology , out put [id number] yesterday was tachycardic to 120 ad tachypnech this am and was placed back on fentanyl repeat CT abdomen OBJECTIVE: Vital Signs Period Temp Pulse Resp BP Sys/Booth Pulse Ox Last 24 Hr 100.8 F-102.2 F 102-146 12-32 101-136/49-74 100-100 GENERAL: Intubated and sedated. demarco in place , surgery wound cover by Gauze , ASHLEY drainage EYES: Pupils equal, round and sluggishly reactive to light. LUNGS: decrease breath sound at the bases HEART: Regular rate and rhythm, normal S1 and S2 without murmur, rub or gallop. ABDOMEN: Soft, not distended, surgical dressing intact. seracenous drainage LOWER EXTREMITIES: 2+ pulses, warm, well-perfused. No calf tenderness. +1 peripheral edema. NEUROLOGICAL: intubated sedated , PEPRLA swollen scrotum less compare to yesterday Laboratory Results - last 24 hr 05/11/19 05/11/19 05/11/19 05:55 06:00 06:00 WBC 15.5 H RBC 3.01 L Hgb 8.6 L Hct 25.4 L MCV 84.4 MCH 28.7 MCHC 34.0 RDW 15.0 Plt Count 226 MPV 11.2 H Absolute Neuts (auto) 7.5 Neutrophils % 48.5 D Neutrophils % (Manual) 51.5 Band Neutrophils % 3.1 Lymphocytes % 29.3 D Lymphocytes % (Manual) 28.9 D Monocytes % 15.6 H Monocytes % (Manual) 3 L Eosinophils % 4.7 H D Eosinophils % (Manual) 6.2 H D Basophils % 1.9 Basophils % (Manual) 0.0 Myelocytes % (Man) 2 D Promyelocytes % (Man) 1 D Blast Cells % (Manual) 0 Nucleated RBC % 1 H Metamyelocytes 0 Hypochromia 0 Platelet Estimate Normal Platelet Comment Present Polychromasia 1+ Poikilocytosis 1+ Anisocytosis 1+ Microcytosis 0 Macrocytosis 0 Target Cells 2+ Tear Drop Cells 1+ Sodium 147 H Potassium 4.2 Chloride 114 H Carbon Dioxide 26 Anion Gap 8 BUN 109.9 H* Creatinine 3.3 H Est GFR (CKD-EPI)AfAm 21.67 Est GFR (CKD-EPI)NonAf 18.70 POC Glucometer 272 Random Glucose 315 H Calcium 8.7 05/11/19 05/11/19 10:47 16:07 WBC RBC Hgb Hct MCV MCH MCHC RDW Plt Count MPV Absolute Neuts (auto) Neutrophils % Neutrophils % (Manual) Band Neutrophils % Lymphocytes % Lymphocytes % (Manual) Monocytes % Monocytes % (Manual) Eosinophils % Eosinophils % (Manual) Basophils % Basophils % (Manual) Myelocytes % (Man) Promyelocytes % (Man) Blast Cells % (Manual) Nucleated RBC % Metamyelocytes Hypochromia Platelet Estimate Platelet Comment Polychromasia Poikilocytosis Anisocytosis Microcytosis Macrocytosis Target Cells Tear Drop Cells Sodium Potassium Chloride Carbon Dioxide Anion Gap BUN Creatinine Est GFR (CKD-EPI)AfAm Est GFR (CKD-EPI)NonAf POC Glucometer 310 274 Random Glucose Calcium Active Medications Generic Name Dose Route Start Last Admin Trade Name Freq PRN Reason Stop Dose Admin Furosemide 60 mg 05/12/19 10:00 Lasix Injection - IVPUSH DAILY [facility] Heparin Sodium (Porcine) 5,000 unit 05/02/19 22:00 05/11/19 21:03 Heparin - SQ 5,000 unit TID MARYSE Administration Fat Emulsion-Soy/MCT/[place]/Fish Oil 125 mls @ 20.833 mls/hr 05/10/19 08:41 21:03 Smoflipid 20% Iv Fat Emulsion IV 20.833 mls/hr DAILY@2200 MARYSE Administration Potassium Chloride 40 meq/ 1,200 mls @ 50 mls/hr 05/11/19 16:00 05/11/19 15: 21 Sodium Acetate 40 meq/ Insulin IVPB 50 mls/hr Human Regular 40 units/ Folic DAILY@1600 MARYSE Administration Acid 1 mg/ Multivitamins/ Minerals 10 ml/ Chromium/ Copper/[place]/Zinc 1 ml/ Sterile Water/ Amino Acids/ Dextrose Meropenem 1 gm/ Dextrose 100 mls @ 100 mls/hr 05/12/19 06:00 IVPB Q12H MARYSE Insulin Aspart 1 vial 05/01/19 07:00 05/11/19 16:10 Novolog Vial Sliding Scale - SQ 6 units TIDAC MARYSE Administration Protocol Ondansetron HCl 4 mg 04/30/19 16:45 Zofran Injection IVPUSH Q6H PRN NAUSEA AND/OR VOMITING Pantoprazole Sodium 40 mg 05/06/19 22:00 05/11/19 21:03 Protonix Iv IVPUSH 40 mg BID MARYSE Administration CBC, BMP 05/11/19 06:00 05/11/19 06:00 ASSESSMENT/PLAN: The pt is a 64 yo m w/ PMH MR, HTN, DM, b/l LE swelling who was BIBEMS for a 1 day h/o Hypotension (70/51), lethargy and tachycardia. Patient transferred to ICU intubated for post op management. #Septich shock 2/2 perforated duodenal ulcer (POD# 11) S/P lap choly repair # peritonitis * NGT place surgically. per surgery NGT SHOULD NOT BE REMOVED OR MANIPULATED for 1 week * start TPN cut down protien , replace central line by ICU * cont protonix IV palacios BID * placed on zosyn and fluconazole post op per ID , switch to rocephin/flagyl per ID completed , cont vanco , and meropenem 1 gm Q12 hr * gutierrez cx negative thus far * BP stable off levo GTT , off vaso GTT * ICU monitor IV fluids , off pressors * mechanical ventilation maintain o2 sat > 90 * monitor drain out put * monitor urine out put # acute Hypoxic respiratory failure due to septic shock on mechanical ventilation per ICU for tracheostomy on by Debby # Hyperkalemia , resolved # Hypervolemic Hyponatremia 127...133 today decrease fluids IV , and give lasix 60 IV BID push once , # DOMENIC on CKD likely 2/2 septic shock , nephrology consulted , avoid nephrotoxic agents # anemia and thrombocytopenia likely due to sepsis , monitor cbc daily , on Hep sc for prophylaxis , HIT pending ,dc zosyn can cause thrombocytopenai as well , switch to rocephin and flagyl # metabolic acidosis; patient had a lactic acidosis pre op * dc NS @ 75 # transaminitis 2/2 septic sock , trend daily , avoid hepatotoxic agents , improving # mental disability #GI and DVT prophylaxis # monitor in ICU prognosis guarded for trachea on Visit type - Emergency Visit Emergency Visit: Yes ED Registration Date: 04/30/19 Care time: The patient presented to the Emergency Department on the above date and was hospitalized for further evaluation of their emergent condition. - New Patient This patient is new to me today: No - Critical Care Critical Care patient: Yes Total Critical Care Time (in minutes): 45 Critical Care Statement: The care of this patient involved high complexity decision making to prevent further life threatening deterioration of the patient 's condition and/or to evaluate & treat vital organ system(s) failure or risk of failure. ATTENDING PHYSICIAN STATEMENT I saw and evaluated the patient. I reviewed the resident's note and discussed the case with the resident. I agree with the resident's findings and plan as documented. SUBJECTIVE: OBJECTIVE: ASSESSMENT AND PLAN:
[2019-05-12] MEDS ORDERED: DEXTROSE 5%-WATER 100 ML IVPB ONE ×2 (06:08→17:49)
[2019-05-12] MEDS ORDERED: MEROPENEM 1 GM VIAL (RESTRICTED TO ID) IVPB ONE ×2 (06:08→17:49)
[2019-05-12 06:13] LABS: ALLENS TEST POSITIVE
[2019-05-12] MEDS: MEROPENEM 1 GM in DEXTROSE 5%-WATER 100 ML IVPB SCH ×2 (06:13→17:50)
[2019-05-12] MEDS: INSULIN SLIDING SCALE (NOVOLOG) 1 VIAL SQ SCH ×3 (06:13→16:43)
[2019-05-12] MEDS: HEPARIN NA (PORCINE) 5,000 UNITS/ML 1ML VIAL SQ SCH ×3 (06:13→21:42)
[2019-05-12] MEDS ORDERED: MIDAZOLAM HCL 2 MG/2 ML SINGLE DOSE VIAL IVPUSH ONE (06:20)
[2019-05-12 06:23] LABS: ARTERIAL BLD GAS O2 SATURATION 98.8 % (95-98); ARTERIAL BLOOD GAS BASE EXCESS -0.4 meq/l (-2-2); ARTERIAL BLOOD GAS PCO2 36.8 mmHg (35-45); ARTERIAL BLOOD GAS PO2 149 mmHg (80-100); ARTERIAL BLOOD GAS pH 7.42 (7.35-7.45)
[2019-05-12 06:37] LABS: BASO % 2.2 % (0-2.0); EOS % 4.6 % (0-4.5); HEMATOCRIT 28.4 % (35.4-49); HEMOGLOBIN 9.4 GM/dL (11.7-16.9); LYMPH % 26.7 % (8-40); MCH 28.7 pg (25.7-33.7); MCHC 33.2 g/dl (32.0-35.9); MEAN CELL VOLUME 86.5 fl (80-96); MEAN PLT VOLUME 11.1 fl (7.5-11.1); MONO % 10.9 % (3.8-10.2); NEUT % 55.6 % (42.8-82.8); PLATELET COUNT 260 K/MM3 (134-434); RBC 3.28 M/mm3 (4.00-5.60); RDW 15.7 % (11.9-15.9)
[2019-05-12 06:44] LABS: ALBUMIN 1.4 g/dl (3.4-5.0); BILIRUBIN,TOTAL 1.8 mg/dL (0.2-1); CALCIUM 8.9 mg/dL (8.5-10.1); CREATININE 3.3 mg/dL (0.55-1.3); MAGNESIUM 1.8 mg/dL (1.8-2.4); PHOSPHOROUS 4.6 mg/dL (2.5-4.9); POTASSIUM 4.3 mmol/L (3.5-5.1); TOT PROT 5.2 g/dl (6.4-8.2)
[2019-05-12] MEDS ORDERED: PROPOFOL 1,000,000 MCG/100 ML VIAL ONE (06:49)
[2019-05-12 06:55] LABS: BLOOD UREA NITROGEN 119.6 mg/dL (7-18)
[2019-05-12] MEDS ORDERED: PROPOFOL 1,000,000 MCG/100 ML VIAL IVPB SCH (07:15)
[2019-05-12] MEDS ORDERED: LACTATED RINGERS SOLUTION 1000 ML INFUS.BAG IV ONE ×2 (07:31→14:10)
[2019-05-12] MEDS ORDERED: fentaNYL CITRATE 250 MCG/5 ML VIAL ONE ×2 (08:02→17:27)
[2019-05-12] MEDS ORDERED: ALBUTEROL SO4 2.5/IPRATROPIUM 0.5 INH SOL 3 ML VIAL.NEB. NEB PRN (08:08)
[2019-05-12] MEDS: FENTANYL INJECTION 500 MCG in DEXTROSE 5%-WATER - 90 ML IVPB SCH ×2 (08:10→17:32)
[2019-05-12] MEDS: PANTOPRAZOLE SODIUM 40 MG VIAL IVPUSH SCH ×2 (09:55→21:42)
[2019-05-12] MEDS: FUROSEMIDE 40 MG/4 ML INJECTABLE VIAL IVPUSH SCH (10:00)
--- NOTE | 2019-05-12 12:47 | PN ---
Physical Exam: SUBJECTIVE: Patient seen and examined Night complicated by tachypnea 30s, tachycardia 140s and agitation with ETT biting; required iv lopressor. Tmax 102. Required fentanyl drip sedation OBJECTIVE: Vital Signs Period Temp Pulse Resp BP Sys/Booth Pulse Ox Last 24 Hr 98.9 F-102.1 F 102-146 12-33 101-151/23-74 99-100 GENERAL: intubated, sedated HEAD: Normal with no signs of trauma. EYES: sclera anicteric, conjunctiva clear. No ptosis. ENT: Ears normal, nares patent, moist mucous membranes. NGT ~60cm at nares NECK: Trachea midline, full range of motion, supple. LUNGS: coarse b/l BS to auscultation bilaterally. Vent 500, 14, 5, 40% HEART: tachycardic and regular rhythm, S1, S2 without murmur, rub or gallop. ABDOMEN: Soft, nontender, nondistended, hypoactive bowel sounds, surgical dressings overlying mid abd without purulence or signs of infection. ASHLEY with SS drainage : scrotum edema with marked improvement EXTREMITIES: 2+ pulses, warm, well-perfused, +edema. NEUROLOGICAL: unresponsive, does not follow commands, does not open eyes SKIN: Warm, dry, normal turgor, no rashes or lesions noted, edema Laboratory Results - last 24 hr 05/11/19 05/12/19 05/12/19 16:07 05:30 05:30 WBC 14.0 H RBC 3.28 L Hgb 9.4 L Hct 28.4 L MCV 86.5 MCH 28.7 MCHC 33.2 RDW 15.7 Plt Count 260 MPV 11.1 Absolute Neuts (auto) 7.8 Neutrophils % 55.6 Lymphocytes % 26.7 Monocytes % 10.9 H Eosinophils % 4.6 H Basophils % 2.2 H Nucleated RBC % 0 Anticoagulation Therapy Puncture Site Patient Temperature ABG pH ABG pCO2 at Pt Temp ABG pO2 at Pt Temp ABG HCO3 ABG O2 Sat (Measured) ABG O2 Content ABG Base Excess Darell Test O2 Delivery Device Oxygen Flow Rate Vent Mode Vent Rate Mechanical Rate PEEP Pressure Support Vent Sodium Potassium Chloride Carbon Dioxide Anion Gap BUN Creatinine Est GFR (CKD-EPI)AfAm Est GFR (CKD-EPI)NonAf POC Glucometer 274 Random Glucose Calcium Phosphorus Magnesium Total Bilirubin AST ALT Alkaline Phosphatase Total Protein Albumin Random Vancomycin 15.0 05/12/19 05/12/19 05/12/19 05:30 06:00 06:06 WBC RBC Hgb Hct MCV MCH MCHC RDW Plt Count MPV Absolute Neuts (auto) Neutrophils % Lymphocytes % Monocytes % Eosinophils % Basophils % Nucleated RBC % Anticoagulation Therapy No Result Required. Puncture Site Right radial Patient Temperature 99.5 ABG pH 7.42 ABG pCO2 at Pt Temp 36.8 ABG pO2 at Pt Temp 149 H ABG HCO3 23.2 ABG O2 Sat (Measured) 98.8 H ABG O2 Content 12.8 ABG Base Excess -0.4 Darell Test Positive O2 Delivery Device Vent Oxygen Flow Rate 40% Vent Mode A/c Vent Rate 14 Mechanical Rate Yes PEEP 5.0 Pressure Support Vent 500 Sodium 148 H Potassium 4.3 Chloride 113 H Carbon Dioxide 25 Anion Gap 10 BUN 119.6 H* Creatinine 3.3 H Est GFR (CKD-EPI)AfAm 21.67 Est GFR (CKD-EPI)NonAf 18.70 POC Glucometer 331 Random Glucose 419 H* Calcium 8.9 Phosphorus 4.6 Magnesium 1.8 Total Bilirubin 1.8 H AST 80 H ALT 84 H Alkaline Phosphatase 140 H Total Protein 5.2 L Albumin 1.4 L Random Vancomycin 05/12/19 12:12 WBC RBC Hgb Hct MCV MCH MCHC RDW Plt Count MPV Absolute Neuts (auto) Neutrophils % Lymphocytes % Monocytes % Eosinophils % Basophils % Nucleated RBC % Anticoagulation Therapy Puncture Site Patient Temperature ABG pH ABG pCO2 at Pt Temp ABG pO2 at Pt Temp ABG HCO3 ABG O2 Sat (Measured) ABG O2 Content ABG Base Excess Darell Test O2 Delivery Device Oxygen Flow Rate Vent Mode Vent Rate Mechanical Rate PEEP Pressure Support Vent Sodium Potassium Chloride Carbon Dioxide Anion Gap BUN Creatinine Est GFR (CKD-EPI)AfAm Est GFR (CKD-EPI)NonAf POC Glucometer 312 Random Glucose Calcium Phosphorus Magnesium Total Bilirubin AST ALT Alkaline Phosphatase Total Protein Albumin Random Vancomycin Active Medications Generic Name Dose Route Start Last Admin Trade Name Freq PRN Reason Stop Dose Admin Albuterol/Ipratropium 1 amp 05/12/19 08:08 Duoneb - NEB Q6H PRN SHORTNESS OF BREATH Furosemide 60 mg 05/12/19 10:00 05/12/19 10:00 Lasix Injection - IVPUSH Not Given DAILY MARYSE Heparin Sodium (Porcine) 5,000 unit 05/02/19 22:00 05/12/19 06:13 Heparin - SQ 5,000 unit TID MARYSE Administration Potassium Chloride 40 meq/ 1,200 mls @ 50 mls/hr 05/11/19 16:00 05/11/19 15: 21 Sodium Acetate 40 meq/ Insulin IVPB 50 mls/hr Human Regular 40 units/ Folic DAILY@1600 MARYSE Administration Acid 1 mg/ Multivitamins/ Minerals 10 ml/ Chromium/ Copper/Manganese/Zinc 1 ml/ Sterile Water/ Amino Acids/ Dextrose Meropenem 1 gm/ Dextrose 100 mls @ 100 mls/hr 05/12/19 06:00 05/12/19 06:13 IVPB 100 mls/hr Q12H MARYSE Administration Fentanyl 500 mcg/ Dextrose 100 mls @ 10 mls/hr 05/12/19 09:00 05/12/19 10:12 IVPB 75 mcg/hr TITR MARYSE 15 mls/hr Titration Protocol 50 MCG/HR Insulin Aspart 1 vial 05/01/19 07:00 05/12/19 12:12 Novolog Vial Sliding Scale - SQ 8 units TIDAC MARYSE Administration Protocol Ondansetron HCl 4 mg 04/30/19 16:45 Zofran Injection IVPUSH Q6H PRN NAUSEA AND/OR VOMITING Pantoprazole Sodium 40 mg 05/06/19 22:00 05/12/19 09:55 Protonix Iv IVPUSH 40 mg BID MARYSE Administration ASSESSMENT/PLAN: 64 year old male with PMH of MR, HTN, DM, b/l LE swelling who was BIBEMS for a 1 day h/o Hypotension (70/51), lethargy and tachycardia, found to have free air under the diaphragm s/p omental patch for duodenal perforation POD12. Post-op admission to ICU intubated for HD monitoring. Neuro -Intubated -agitation overnight and required sedation with fent; still tachypnic will increase to 75mcg -per Ingram, patient speaks one word sentences and performs some ADLs without assist Pulmonary -Intubated -Vent: 500, 14, 6, 40% --> CPAP as tolerated -consulted Dr Reese for trach; discussed with lease out man Mr Vigil and patient was consented -plan for trach ; lease out man consented over the phone on 05/11/19 ~1pm -will hold all AC on the evening of 05/13 Cardio -Hypotension --likely 2/2 septic shock -off pressors -CVP goal 8-12, fluids currently held d/t volume overload GI -Perforated duodenum --possibly 2/2 freq NSAID usage vs H pylori -Transamnitis --likely shocked liver, levels improving daily ast/alt 213/723 -Lactic Acid improvin/15 3.0 -S/p Ex-Lap w/ Jack Patch([facility], 04/30/19) -NGT placed surgically. per surgery NGT SHOULD NOT BE REMOVED OR MANIPULATED for 2+ weeks and remains NPO -ASHLEY drain to stay in place per surgery instructions -surgical packing removed; per surgery instruction: irrigate glory-wound area with saline and cover with dry dressing daily -40mg protonix BID -Abx regimen: s/p flagul, fluc, ceftr now all DCd -tolerating TPN -increased BUN thought to be 2/2 to TPN; protein content changed -will consider CT abd tomorrow if fevers continue Renal #DOMENIC --likely 2/2 cardiorenal syndrome - Cr improving 3.3, BUN 109.9 - Nephro([facility]) consult: - continue lasix 60mg BID; follow uop -holding lasix on 05/12 given tenuous MAPs ID -downtrending WBC since surgery, today 14.0 -CTH(05/06/19): neg acute path -CT A/P(05/06/19): free air along the subhepatic space, likely postsurgical -ceftr and flagyl DCd; recommending for DC central line and new ling placement -s/p new line and 1g vanc with AM vanc level ordered -on daily meropenem now; will trend fever curve Heme # thrombocytopenia, no resolved - plt stable; H&H stable - HIT panel negative -restarted HSQ TID; will hold tomorrow evening for trach FEN -holding fluids -TPN -NGT to LWS PPX -Protonix BID -HSQ Dispo -ICU monitoring Visit type - Emergency Visit Emergency Visit: No - New Patient This patient is new to me today: No - Critical Care Critical Care patient: Yes Total Critical Care Time (in minutes): 35 Critical Care Statement: The care of this patient involved high complexity decision making to prevent further life threatening deterioration of the patient 's condition and/or to evaluate & treat vital organ system(s) failure or risk of failure. ATTENDING PHYSICIAN STATEMENT I saw and evaluated the patient. I reviewed the resident's note and discussed the case with the resident. I agree with the resident's findings and plan as documented. SUBJECTIVE: OBJECTIVE: ASSESSMENT AND PLAN:
--- NOTE | 2019-05-12 13:01 | SURG ---
Surgery Painter Assistant Note Painter Assistant: Diane Hines PA-C Date of Service: 05/12/19 Diagnosis: perforated viscous Procedure: exploratory laparotomy, rohan patch repair perforated duodenal ulcer, lavage, retro-rectus block I was present for the entirety of the operative procedure. For further detail, please refer to operative report. Visit type - Case Type Case Type: ED Admission - Emergency Emergency Visit: Yes ED Registration Date: 04/30/19 Care time: The patient presented to the Emergency Department on the above date and was hospitalized for further evaluation of their emergent condition. - New patient This patient is new to me today: Yes Date on this admission: 04/30/19
--- NOTE | 2019-05-12 13:30 | EKG ---
Test Reason : Blood Pressure : / mmHG Vent. Rate : 125 BPM Atrial Rate : 125 BPM P-R Int : 114 ms QRS Dur : 084 ms QT Int : 336 ms P-R-T Axes : 034 -05 054 degrees QTc Int : 484 ms SINUS TACHYCARDIA WITH FREQUENT PREMATURE VENTRICULAR COMPLEXES LOW VOLTAGE QRS NONSPECIFIC ST ABNORMALITY ABNORMAL ECG Confirmed by Zaheer Flowers MD ([id number]) on 05/12/2019 1:30:13 PM Referred By: Jasper CLARKE Confirmed By:Zaheer Flowers MD
--- NOTE | 2019-05-12 14:18 | PN ---
Teaching Attending Note Name of Resident: Karla Billingsley ATTENDING PHYSICIAN STATEMENT I saw and evaluated the patient. I reviewed the resident's note and discussed the case with the resident. I agree with the resident's findings and plan as documented. SUBJECTIVE: Patient seen and examined in the ICU. Remains intubated Remains off levophed drip. Still spiking temperatures. OBJECTIVE: Intake & Output 05/09/19 05/10/19 05/11/19 05/12/19 23:59 23:59 23:59 23:59 Intake Total 563.0 1869.6 986 662 Output Total 5390 2910 3695 320 Balance -4827.0 -1040.4 -2709 342 Weight 205 lb 3.2 oz 195 lb 14.4 oz 193 lb 9.6 oz 194 lb 3.636 oz Last Vital Signs Temp Pulse Resp BP Pulse Ox 100.2 F H 121 H 17 99/44 L 99 05/12/19 12:00 05/12/19 12:00 05/12/19 12:19 05/12/19 12:00 05/12/19 10:00 Active Medications Albuterol/Ipratropium (Duoneb -) 1 amp NEB Q6H PRN PRN Reason: SHORTNESS OF BREATH Furosemide (Lasix Injection -) 60 mg IVPUSH DAILY [facility] Last Admin: 05/12/19 10:00 Dose: Not Given Heparin Sodium (Porcine) (Heparin -) 5,000 unit SQ TID [facility] Last Admin: 05/12/19 06:13 Dose: 5,000 unit Potassium Chloride 40 meq/Sodium Acetate 40 meq/ Insulin Human Regular 40 units / Folic Acid 1 mg/ Multivitamins/Minerals 10 ml/ Chromium/Copper/Manganese/Zinc 1 ml/Sterile Water/ Amino Acids/Dextrose 1,200 mls @ 50 mls/hr IVPB DAILY@1600 [facility] Last Admin: 05/11/19 15:21 Dose: 50 mls/hr Meropenem 1 gm/ Dextrose 100 mls @ 100 mls/hr IVPB Q12H [facility] Last Admin: 05/12/19 06:13 Dose: 100 mls/hr Fentanyl 500 mcg/ Dextrose 100 mls @ 10 mls/hr IVPB TITR MARYSE; Protocol Last Titration: 05/12/19 10:12 Dose: 75 mcg/hr, 15 mls/hr Insulin Aspart (Novolog Vial Sliding Scale -) 1 vial SQ TIDAC [facility]; Protocol Last Admin: 05/12/19 12:12 Dose: 8 units Ondansetron HCl (Zofran Injection) 4 mg IVPUSH Q6H PRN PRN Reason: NAUSEA AND/OR VOMITING Pantoprazole Sodium (Protonix Iv) 40 mg IVPUSH BID [facility] Last Admin: 05/12/19 09:55 Dose: 40 mg Gen: intubated, sedated Heart: RRR Lung: scattered rhonchi Abd:soft, +ASHLEY with serosanguinous drainage Ext: + edema Laboratory Results - last 24 hr 05/11/19 05/12/19 05/12/19 16:07 05:30 05:30 WBC 14.0 H RBC 3.28 L Hgb 9.4 L Hct 28.4 L MCV 86.5 MCH 28.7 MCHC 33.2 RDW 15.7 Plt Count 260 MPV 11.1 Absolute Neuts (auto) 7.8 Neutrophils % 55.6 Lymphocytes % 26.7 Monocytes % 10.9 H Eosinophils % 4.6 H Basophils % 2.2 H Nucleated RBC % 0 Anticoagulation Therapy Puncture Site Patient Temperature ABG pH ABG pCO2 at Pt Temp ABG pO2 at Pt Temp ABG HCO3 ABG O2 Sat (Measured) ABG O2 Content ABG Base Excess Darell Test O2 Delivery Device Oxygen Flow Rate Vent Mode Vent Rate Mechanical Rate PEEP Pressure Support Vent Sodium Potassium Chloride Carbon Dioxide Anion Gap BUN Creatinine Est GFR (CKD-EPI)AfAm Est GFR (CKD-EPI)NonAf POC Glucometer 274 Random Glucose Calcium Phosphorus Magnesium Total Bilirubin AST ALT Alkaline Phosphatase Total Protein Albumin Random Vancomycin 15.0 05/12/19 05/12/19 05/12/19 05:30 06:00 06:06 WBC RBC Hgb Hct MCV MCH MCHC RDW Plt Count MPV Absolute Neuts (auto) Neutrophils % Lymphocytes % Monocytes % Eosinophils % Basophils % Nucleated RBC % Anticoagulation Therapy No Result Required. Puncture Site Right radial Patient Temperature 99.5 ABG pH 7.42 ABG pCO2 at Pt Temp 36.8 ABG pO2 at Pt Temp 149 H ABG HCO3 23.2 ABG O2 Sat (Measured) 98.8 H ABG O2 Content 12.8 ABG Base Excess -0.4 Darell Test Positive O2 Delivery Device Vent Oxygen Flow Rate 40% Vent Mode A/c Vent Rate 14 Mechanical Rate Yes PEEP 5.0 Pressure Support Vent 500 Sodium 148 H Potassium 4.3 Chloride 113 H Carbon Dioxide 25 Anion Gap 10 BUN 119.6 H* Creatinine 3.3 H Est GFR (CKD-EPI)AfAm 21.67 Est GFR (CKD-EPI)NonAf 18.70 POC Glucometer 331 Random Glucose 419 H* Calcium 8.9 Phosphorus 4.6 Magnesium 1.8 Total Bilirubin 1.8 H AST 80 H ALT 84 H Alkaline Phosphatase 140 H Total Protein 5.2 L Albumin 1.4 L Random Vancomycin 05/12/19 12:12 WBC RBC Hgb Hct MCV MCH MCHC RDW Plt Count MPV Absolute Neuts (auto) Neutrophils % Lymphocytes % Monocytes % Eosinophils % Basophils % Nucleated RBC % Anticoagulation Therapy Puncture Site Patient Temperature ABG pH ABG pCO2 at Pt Temp ABG pO2 at Pt Temp ABG HCO3 ABG O2 Sat (Measured) ABG O2 Content ABG Base Excess Darell Test O2 Delivery Device Oxygen Flow Rate Vent Mode Vent Rate Mechanical Rate PEEP Pressure Support Vent Sodium Potassium Chloride Carbon Dioxide Anion Gap BUN Creatinine Est GFR (CKD-EPI)AfAm Est GFR (CKD-EPI)NonAf POC Glucometer 312 Random Glucose Calcium Phosphorus Magnesium Total Bilirubin AST ALT Alkaline Phosphatase Total Protein Albumin Random Vancomycin ASSESSMENT AND PLAN: Acute Hypoxic Respiratory Failure Perforated Duodenal Ulcer s/p Ex-lap/Jack Patch Repair Peritonitis Septic Shock Acute Kidney Injury Elevated LFTs likely Ischemic Injury Hyponatremia Volume Overload Anemia Thrombocytopenia Mental Retardation HTN DM - TLC changed yesterday - continue antibiotics, antifungals per ID - monitor drain output - monitor urine output, creatinine - monitor CBC - taper FiO2 to keep SpO2 >90% - protonix - monitor WBC trend - continue TPN - DVT/GI prophylaxis - continue ICU monitoring - prognosis guarded - Will need Trach (tentatively scheduled for ) Dr Desai Critical care time spent in reviewing chart, evaluating patient and formulating plan 36 min
--- NOTE | 2019-05-12 14:35 | PN ---
Progress Note, Physician History of Present Illness: Pt seen and examined at bedside. He remains in the ICU. He remains intubated. - Current Medication List Current Medications: Active Medications Albuterol/Ipratropium (Duoneb -) 1 amp NEB Q6H PRN PRN Reason: SHORTNESS OF BREATH Furosemide (Lasix Injection -) 60 mg IVPUSH DAILY [facility] Last Admin: 05/12/19 10:00 Dose: Not Given Heparin Sodium (Porcine) (Heparin -) 5,000 unit SQ TID [facility] Last Admin: 05/12/19 14:18 Dose: 5,000 unit Potassium Chloride 40 meq/Sodium Acetate 40 meq/ Insulin Human Regular 40 units / Folic Acid 1 mg/ Multivitamins/Minerals 10 ml/ Chromium/Copper/Manganese/Zinc 1 ml/Sterile Water/ Amino Acids/Dextrose 1,200 mls @ 50 mls/hr IVPB DAILY@1600 [facility] Last Admin: 05/11/19 15:21 Dose: 50 mls/hr Meropenem 1 gm/ Dextrose 100 mls @ 100 mls/hr IVPB Q12H [facility] Last Admin: 05/12/19 06:13 Dose: 100 mls/hr Fentanyl 500 mcg/ Dextrose 100 mls @ 10 mls/hr IVPB TITR [facility]; Protocol Last Titration: 05/12/19 14:00 Dose: 50 mcg/hr, 10 mls/hr Insulin Aspart (Novolog Vial Sliding Scale -) 1 vial SQ TIDAC [facility]; Protocol Last Admin: 05/12/19 12:12 Dose: 8 units Ondansetron HCl (Zofran Injection) 4 mg IVPUSH Q6H PRN PRN Reason: NAUSEA AND/OR VOMITING Pantoprazole Sodium (Protonix Iv) 40 mg IVPUSH BID [facility] Last Admin: 05/12/19 09:55 Dose: 40 mg - Objective Vital Signs: Vital Signs Temperature 100.4 F H 05/12/19 14:00 Pulse Rate 117 H 05/12/19 14:00 Respiratory Rate 24 H 05/12/19 14:00 Blood Pressure 85/48 L 05/12/19 14:00 O2 Sat by Pulse Oximetry (%) 99 05/12/19 10:00 Constitutional: Yes: Calm Eyes: Yes: Conjunctiva Clear HENT: Yes: Atraumatic Neck: Yes: Supple Cardiovascular: Yes: S1, S2 Respiratory: Yes: Mechanically Ventilated Gastrointestinal: Yes: Soft Genitourinary: Yes: Banuelos Present Musculoskeletal: Yes: Muscle Weakness Edema: LLE: Trace, RLE: Trace Neurological: Yes: Lethargy Labs: CBC, BMP 05/12/19 05:30 05/12/19 05:30 INR, PTT INR 1.36 (0.83-1.09) H 05/05/19 05:00 Fibrinogen 443.0 mg/dL (238-498) 05/05/19 05:00 Assessment/Plan Current Medications Generic Name Dose Route Start Last Admin Trade Name Freq PRN Reason Stop Dose Admin Albuterol/Ipratropium 1 amp 05/12/19 08:08 Duoneb - NEB Q6H PRN SHORTNESS OF BREATH Furosemide 60 mg 05/12/19 10:00 05/12/19 10:00 Lasix Injection - IVPUSH Not Given DAILY MARYSE Heparin Sodium (Porcine) 5,000 unit 05/02/19 22:00 05/12/19 14:18 Heparin - SQ 5,000 unit TID MARYSE Administration Potassium Chloride 40 meq/ 1,200 mls @ 50 mls/hr 05/11/19 16:00 05/11/19 15: 21 Sodium Acetate 40 meq/ Insulin IVPB 50 mls/hr Human Regular 40 units/ Folic DAILY@1600 MARYSE Administration Acid 1 mg/ Multivitamins/ Minerals 10 ml/ Chromium/ Copper/Manganese/Zinc 1 ml/ Sterile Water/ Amino Acids/ Dextrose Meropenem 1 gm/ Dextrose 100 mls @ 100 mls/hr 05/12/19 06:00 05/12/19 06:13 IVPB 100 mls/hr Q12H MARYSE Administration Fentanyl 500 mcg/ Dextrose 100 mls @ 10 mls/hr 05/12/19 09:00 05/12/19 14:00 IVPB 50 mcg/hr TITR MARYSE 10 mls/hr Titration Protocol 50 MCG/HR Insulin Aspart 1 vial 05/01/19 07:00 05/12/19 12:12 Novolog Vial Sliding Scale - SQ 8 units TIDAC MARYSE Administration Protocol Ondansetron HCl 4 mg 04/30/19 16:45 Zofran Injection IVPUSH Q6H PRN NAUSEA AND/OR VOMITING Pantoprazole Sodium 40 mg 05/06/19 22:00 05/12/19 09:55 Protonix Iv IVPUSH 40 mg BID MARYSE Administration IMPRESSION DOMENIC septic shock perforated duodenal ulcer fluid overload MR DM possible ckd transamitis hyperkalemia hyponatremia PLAN - decrease protein in feeds - increase free water - discussed with dietary - discussed with ICU team - hold lasix today - monitor renal function closely, 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
--- NOTE | 2019-05-12 14:39 | PN ---
Progress Note (short form) - Note Progress Note: extubated, then re-intubated same day (saturday) sedation off- remains unresponsive on TPN central line changed, cultures sent yesterday fevers all night Vital Signs Period Temp Pulse Resp BP Sys/Booth Pulse Ox Last 24 Hr 98.3 F-102.1 F 102-144 12-33 84-151/23-74 99-100 cor-rrr lungs clear abd soft,incision clean and dry lex with minimal drainage ext +edema +scrotal edema CBC, BMP 05/12/19 05:30 05/12/19 05:30 vanco trough 15 Microbiology 05/11/19 09:50 Blood - Peripheral Venous Blood Culture - Preliminary NO GROWTH OBTAINED AFTER 24 HOURS, INCUBATION TO CONTINUE FOR 4 DAYS. 05/11/19 09:45 Blood - Peripheral Venous Blood Culture - Preliminary NO GROWTH OBTAINED AFTER 24 HOURS, INCUBATION TO CONTINUE FOR 4 DAYS. 05/08/19 05:55 Blood - Peripheral Venous Blood Culture - Preliminary NO GROWTH OBTAINED AFTER 72 HOURS, INCUBATION TO CONTINUE FOR 2 DAYS. 05/08/19 05:50 Blood - Peripheral Venous Blood Culture - Preliminary NO GROWTH OBTAINED AFTER 72 HOURS, INCUBATION TO CONTINUE FOR 2 DAYS. 04/30/19 09:00 Blood - Peripheral Venous Blood Culture - Final NO GROWTH AFTER 5 DAYS INCUBATION 04/30/19 09:00 Blood - Peripheral Venous Blood Culture - Final NO GROWTH AFTER 5 DAYS INCUBATION 04/30/19 14:28 Body Fluid - Other Gram Stain - Final 04/30/19 14:28 Body Fluid - Other Body Fluid Culture - Final NO GROWTH OF AEROBIC ORGANISMS AFTER 48 HOURS INCUBATION 04/30/19 14:28 Body Fluid - Other Anaerobic Culture - Final NO ANAEROBES WERE ISOLATED 04/30/19 14:38 Abdomen Gram Stain - Final 04/30/19 12:30 Urine - Urine Clean Catch Urine Culture - Final NO GROWTH OBTAINED czray clear a/p fevers-repeat blood cultures negative , central line changed POD #12 -remain intubated, remains unresponsive off sedation sepsis secondary to perforated viscus s/p repair of perforated bowel respiratory failure- remains intubated DOMENIC now on vanco by level meropenem would suggest ct scan of abd/pelvis to r/o abdominal abscess/collection Problem List - Problems (1) Sepsis Code(s): A41.9 - SEPSIS, UNSPECIFIED ORGANISM (2) Bowel perforation Code(s): K63.1 - PERFORATION OF INTESTINE (NONTRAUMATIC) (3) DOMENIC (acute kidney injury) Code(s): N17.9 - ACUTE KIDNEY FAILURE, UNSPECIFIED (4) Shock liver Code(s): K72.00 - ACUTE AND SUBACUTE HEPATIC FAILURE WITHOUT COMA
[2019-05-12] MEDS ORDERED: VANCOMYCIN 1 GRAM (PRE-DOCKED) 1,000 MG/250 ML BAG IVPB ONE (14:40)
[2019-05-12] MEDS ORDERED: INSULIN REGULAR IV SCH (16:00)
[2019-05-12] MEDS ORDERED: FOLIC ACID IV SCH (16:00)
[2019-05-12] MEDS ORDERED: [UNRECOGNIZED DRUG - OTHER] IV SCH (16:00)
[2019-05-12] MEDS ORDERED: POTASSIUM ACETATE IV SCH (16:00)
--- NOTE | 2019-05-12 16:58 | PN ---
Teaching Attending Note Name of Resident: Vidal Aguilar ATTENDING PHYSICIAN STATEMENT I saw and evaluated the patient. I reviewed the resident's note and discussed the case with the resident. I agree with the resident's findings and plan as documented. SUBJECTIVE: Patient intubated. Had temp 102.1 last night. OBJECTIVE: Vital Signs Period Temp Pulse Resp BP Sys/Booth Pulse Ox Last 24 Hr 98.3 F-102.1 F 102-144 12-33 84-151/23-74 99-100 HEART: S1S2, tachycardic LUNGS: Ventilated BS, bilateral rhonchi ABDOMEN: Soft, non-distended, normal BS, ASHLEY drain with serosanguineous drainage EXTREMITIES: 1+ edema Laboratory Results - last 24 hr 05/12/19 05/12/19 05/12/19 05:30 05:30 05:30 WBC 14.0 H RBC 3.28 L Hgb 9.4 L Hct 28.4 L MCV 86.5 MCH 28.7 MCHC 33.2 RDW 15.7 Plt Count 260 MPV 11.1 Absolute Neuts (auto) 7.8 Neutrophils % 55.6 Lymphocytes % 26.7 Monocytes % 10.9 H Eosinophils % 4.6 H Basophils % 2.2 H Nucleated RBC % 0 Anticoagulation Therapy Puncture Site Patient Temperature ABG pH ABG pCO2 at Pt Temp ABG pO2 at Pt Temp ABG HCO3 ABG O2 Sat (Measured) ABG O2 Content ABG Base Excess Darell Test O2 Delivery Device Oxygen Flow Rate Vent Mode Vent Rate Mechanical Rate PEEP Pressure Support Vent Sodium 148 H Potassium 4.3 Chloride 113 H Carbon Dioxide 25 Anion Gap 10 BUN 119.6 H* Creatinine 3.3 H Est GFR (CKD-EPI)AfAm 21.67 Est GFR (CKD-EPI)NonAf 18.70 POC Glucometer Random Glucose 419 H* Calcium 8.9 Phosphorus 4.6 Magnesium 1.8 Total Bilirubin 1.8 H AST 80 H ALT 84 H Alkaline Phosphatase 140 H Total Protein 5.2 L Albumin 1.4 L Random Vancomycin 15.0 05/12/19 05/12/19 05/12/19 06:00 06:06 12:12 WBC RBC Hgb Hct MCV MCH MCHC RDW Plt Count MPV Absolute Neuts (auto) Neutrophils % Lymphocytes % Monocytes % Eosinophils % Basophils % Nucleated RBC % Anticoagulation Therapy No Result Required. Puncture Site Right radial Patient Temperature 99.5 ABG pH 7.42 ABG pCO2 at Pt Temp 36.8 ABG pO2 at Pt Temp 149 H ABG HCO3 23.2 ABG O2 Sat (Measured) 98.8 H ABG O2 Content 12.8 ABG Base Excess -0.4 Darell Test Positive O2 Delivery Device Vent Oxygen Flow Rate 40% Vent Mode A/c Vent Rate 14 Mechanical Rate Yes PEEP 5.0 Pressure Support Vent 500 Sodium Potassium Chloride Carbon Dioxide Anion Gap BUN Creatinine Est GFR (CKD-EPI)AfAm Est GFR (CKD-EPI)NonAf POC Glucometer 331 312 Random Glucose Calcium Phosphorus Magnesium Total Bilirubin AST ALT Alkaline Phosphatase Total Protein Albumin Random Vancomycin 05/12/19 16:42 WBC RBC Hgb Hct MCV MCH MCHC RDW Plt Count MPV Absolute Neuts (auto) Neutrophils % Lymphocytes % Monocytes % Eosinophils % Basophils % Nucleated RBC % Anticoagulation Therapy Puncture Site Patient Temperature ABG pH ABG pCO2 at Pt Temp ABG pO2 at Pt Temp ABG HCO3 ABG O2 Sat (Measured) ABG O2 Content ABG Base Excess Darell Test O2 Delivery Device Oxygen Flow Rate Vent Mode Vent Rate Mechanical Rate PEEP Pressure Support Vent Sodium Potassium Chloride Carbon Dioxide Anion Gap BUN Creatinine Est GFR (CKD-EPI)AfAm Est GFR (CKD-EPI)NonAf POC Glucometer 292 Random Glucose Calcium Phosphorus Magnesium Total Bilirubin AST ALT Alkaline Phosphatase Total Protein Albumin Random Vancomycin Current Medications Generic Name Dose Route Start Last Admin Trade Name Freq PRN Reason Stop Dose Admin Albuterol/Ipratropium 1 amp 05/12/19 08:08 Duoneb - NEB Q6H PRN SHORTNESS OF BREATH Furosemide 60 mg 05/12/19 10:00 05/12/19 10:00 Lasix Injection - IVPUSH Not Given DAILY [facility] Heparin Sodium (Porcine) 5,000 unit 05/02/19 22:00 05/12/19 14:18 Heparin - SQ 5,000 unit TID [facility] Administration Meropenem 1 gm/ Dextrose 100 mls @ 100 mls/hr 05/12/19 06:00 05/12/19 06:13 IVPB 100 mls/hr Q12H [facility] Administration Fentanyl 500 mcg/ Dextrose 100 mls @ 10 mls/hr 05/12/19 09:00 05/12/19 14:00 IVPB 50 mcg/hr TITR MARYSE 10 mls/hr Titration Protocol 50 MCG/HR Fat Emulsion-Soy/MCT/[place]/Fish Oil 250 mls @ 20.833 mls/hr 05/12/19 22:00 Smoflipid 20% Iv Fat Emulsion IV DAILY@2200 [facility] Potassium Acetate 40 meq/ 1,200 mls @ 50 mls/hr 05/12/19 16:00 05/12/19 15:57 Insulin Human Regular 60 units IV 50 mls/hr / Folic Acid 1 mg/ DAILY@1600 [facility] Administration Multivitamins/Minerals 10 ml/ Thiamine HCl 100 mg/ Sterile Water/ Amino Acids/ Dextrose Insulin Aspart 1 vial 05/01/19 07:00 05/12/19 16:43 Novolog Vial Sliding Scale - SQ 6 units TIDAC [facility] Administration Protocol Ondansetron HCl 4 mg 04/30/19 16:45 Zofran Injection IVPUSH Q6H PRN NAUSEA AND/OR VOMITING Pantoprazole Sodium 40 mg 05/06/19 22:00 05/12/19 09:55 Protonix Iv IVPUSH 40 mg BID [facility] Administration ASSESSMENT AND PLAN: This is a 64 year old man with a history of MR, HTN, type 2 DM who presented to the ED from [place] with lethargy, hypotension, and tachycardia. 1. Septic shock and acute hypoxic respiratory failure secondary to peritonitis from perforated duodenal ulcer - s/p exploratory laparotomy, rohan patch repair, lavage, retro-rectus block 04/30 - Maintain NG tube - Continue Protonix IV - Off pressors - Plan for tracheostomy 05/14 - Vent management per ICU team 2. Acute kidney injury - Improving 3. Hepatic transaminitis - Likely secondary to shock/hypotension - Improving 4. Hypernatremia - Free water via NGT increased - TPN adjusted - Lasix held - Monitor electrolytes 5. Hyperkalemia - Improved 6. Hyponatremia secondary to volume overload - Improved 7. Anemia - Hgb stable 8. Thrombocytopenia - Improved 9. HTN - Antihypertensives held secondary to hypotension 10. Type 2 DM 11. Mental retardation 12. Nutrition - Continue TPN
[2019-05-12] MEDS: FAT EMUL/SOY/MCT/OLIV/FISH OIL 250 ML IV SCH (21:42)
[2019-05-12] MEDS ORDERED: FAT EMUL/SOY/MCT/OLIV/FISH OIL 250 ML IV SCH (22:00)
[2019-05-13] MEDS ORDERED: MEROPENEM 1 GM VIAL (RESTRICTED TO ID) IVPB ONE ×2 (05:26→16:20)
[2019-05-13] MEDS ORDERED: DEXTROSE 5%-WATER 100 ML IVPB ONE ×2 (05:26→16:20)
[2019-05-13] MEDS: HEPARIN NA (PORCINE) 5,000 UNITS/ML 1ML VIAL SQ SCH ×2 (05:33→16:26)
[2019-05-13] MEDS: MEROPENEM 1 GM in DEXTROSE 5%-WATER 100 ML IVPB SCH ×2 (05:34→17:01)
[2019-05-13 05:52] LABS: BASO % 2.4 % (0-2.0); EOS % 8.9 % (0-4.5); HEMATOCRIT 24.1 % (35.4-49); HEMOGLOBIN 8.1 GM/dL (11.7-16.9); LYMPH % 31.5 % (8-40); MCHC 33.9 g/dl (32.0-35.9); MEAN CELL VOLUME 85.6 fl (80-96); MEAN PLT VOLUME 11.1 fl (7.5-11.1); MONO % 11.5 % (3.8-10.2); NEUT % 45.7 % (42.8-82.8); PLATELET COUNT 218 K/MM3 (134-434); RBC 2.81 M/mm3 (4.00-5.60); RDW 16.1 % (11.9-15.9); WHITE BLOOD COUNT 10.9 K/mm3 (4.0-10.0)
[2019-05-13] MEDS ORDERED: LACTATED RINGERS SOLUTION 1000 ML INFUS.BAG IV ONE (06:21)
[2019-05-13] MEDS: INSULIN SLIDING SCALE (NOVOLOG) 1 VIAL SQ SCH ×3 (06:35→16:59)
[2019-05-13 06:43] LABS: ALBUMIN 1.2 g/dl (3.4-5.0); BILIRUBIN,TOTAL 1.9 mg/dL (0.2-1); CALCIUM 7.8 mg/dL (8.5-10.1); MAGNESIUM 1.4 mg/dL (1.8-2.4); POTASSIUM 4.1 mmol/L (3.5-5.1); TOT PROT 4.9 g/dl (6.4-8.2)
[2019-05-13 06:51] LABS: BLOOD UREA NITROGEN 106.3 mg/dL (7-18)
--- NOTE | 2019-05-13 07:33 | PN ---
Physical Exam: SUBJECTIVE: Patient seen and examined at bed side , intubated sedated, had fever 101.7 on Meropenem and vanco by level , tracheostomy will be placed on Am per kay , still with fever , NA better today will cut down lasix to 60 daily per nephrology hild today and then PRN , out put 1800CC yesterday was tachycardic to 120 this am and was placed back on fentanyl repeat CT abdomen OBJECTIVE: Vital Signs Period Temp Pulse Resp BP Sys/Booth Pulse Ox Last 24 Hr 98.3 F-100.4 F 107-124 14-33 84-128/40-68 99-100 GENERAL: Intubated and sedated. had some grimacing , respons to painful stimuli demarco in place , surgery wound cover by Gauze , ASHLEY drainage EYES: Pupils equal, round and sluggishly reactive to light. LUNGS: decrease breath sound at the bases HEART: Regular rate and rhythm, normal S1 and S2 without murmur, rub or gallop. ABDOMEN: Soft, not distended, surgical dressing intact. seracenous drainage LOWER EXTREMITIES: 2+ pulses, warm, well-perfused. No calf tenderness. +1 peripheral edema. NEUROLOGICAL: intubated sedated , PEPRLA swollen scrotum less compare to yesterday Laboratory Results - last 24 hr 05/12/19 05/12/19 05/13/19 12:12 16:42 05:19 WBC RBC Hgb Hct MCV MCH MCHC RDW Plt Count MPV Absolute Neuts (auto) Neutrophils % Lymphocytes % Monocytes % Eosinophils % Basophils % Nucleated RBC % Sodium Potassium Chloride Carbon Dioxide Anion Gap BUN Creatinine Est GFR (CKD-EPI)AfAm Est GFR (CKD-EPI)NonAf POC Glucometer 312 292 345 Random Glucose Calcium Phosphorus Magnesium Total Bilirubin AST ALT Alkaline Phosphatase Total Protein Albumin 05/13/19 05/13/19 05:20 05:20 WBC 10.9 H RBC 2.81 L Hgb 8.1 L Hct 24.1 L D MCV 85.6 MCH 29.0 MCHC 33.9 RDW 16.1 H Plt Count 218 MPV 11.1 Absolute Neuts (auto) 5.0 Neutrophils % 45.7 Lymphocytes % 31.5 Monocytes % 11.5 H Eosinophils % 8.9 H D Basophils % 2.4 H Nucleated RBC % 0 Sodium 146 H Potassium 4.1 Chloride 114 H Carbon Dioxide 27 Anion Gap 5 L BUN 106.3 H* Creatinine 3.0 H Est GFR (CKD-EPI)AfAm 24.32 Est GFR (CKD-EPI)NonAf 20.98 POC Glucometer Random Glucose 378 H Calcium 7.8 L Phosphorus 4.0 Magnesium 1.4 L Total Bilirubin 1.9 H AST 80 H ALT 69 H Alkaline Phosphatase 109 Total Protein 4.9 L Albumin 1.2 L Active Medications Generic Name Dose Route Start Last Admin Trade Name Freq PRN Reason Stop Dose Admin Albuterol/Ipratropium 1 amp 05/12/19 08:08 Duoneb - NEB Q6H PRN SHORTNESS OF BREATH Furosemide 60 mg 05/12/19 10:00 05/12/19 10:00 Lasix Injection - IVPUSH Not Given DAILY [facility] Heparin Sodium (Porcine) 5,000 unit 05/02/19 22:00 05/13/19 05:33 Heparin - SQ 5,000 unit TID [facility] Administration Meropenem 1 gm/ Dextrose 100 mls @ 100 mls/hr 05/12/19 06:00 05/13/19 05:34 IVPB 100 mls/hr Q12H [facility] Administration Fentanyl 500 mcg/ Dextrose 100 mls @ 10 mls/hr 05/12/19 09:00 05/12/19 17:32 IVPB 25 mcg/hr TITR [facility] 5 mls/hr Administration Protocol 50 MCG/HR Fat Emulsion-Soy/MCT/[place]/Fish Oil 250 mls @ 20.833 mls/hr 05/12/19 22:00 21:42 Smoflipid 20% Iv Fat Emulsion IV 20.833 mls/hr DAILY@2200 [facility] Administration Potassium Acetate 40 meq/ 1,200 mls @ 50 mls/hr 05/12/19 16:00 05/12/19 15:57 Insulin Human Regular 60 units IV 50 mls/hr / Folic Acid 1 mg/ DAILY@1600 [facility] Administration Multivitamins/Minerals 10 ml/ Thiamine HCl 100 mg/ Sterile Water/ Amino Acids/ Dextrose Insulin Aspart 1 vial 05/01/19 07:00 05/13/19 06:35 Novolog Vial Sliding Scale - SQ 8 units TIDAC [facility] Administration Protocol Ondansetron HCl 4 mg 04/30/19 16:45 Zofran Injection IVPUSH Q6H PRN NAUSEA AND/OR VOMITING Pantoprazole Sodium 40 mg 05/06/19 22:00 05/12/19 21:42 Protonix Iv IVPUSH 40 mg BID [facility] Administration CBC, BMP 05/13/19 05:20 05/13/19 05:20 ASSESSMENT/PLAN: The pt is a 64 yo m w/ PMH MR, HTN, DM, b/l LE swelling who was BIBEMS for a 1 day h/o Hypotension (70/51), lethargy and tachycardia. Patient transferred to ICU intubated for post op management. #Septich shock 2/2 perforated duodenal ulcer (POD# 11) S/P lap choly repair # peritonitis * NGT place surgically. per surgery NGT SHOULD NOT BE REMOVED OR MANIPULATED for 1 week * start TPN cut down protien , replace central line by ICU * cont protonix IV palacios TID * placed on zosyn and fluconazole post op per ID , switch to rocephin/flagyl per ID completed , cont vanco , and meropenem 1 gm Q12 hr * gutierrez cx negative thus far * BP stable off levo GTT , off vaso GTT * ICU monitor IV fluids , off pressors * mechanical ventilation maintain o2 sat > 90 * monitor drain out put * monitor urine out put # acute Hypoxic respiratory failure due to septic shock on mechanical ventilation per ICU for tracheostomy on by Debby # Hyperkalemia , resolved # Hypervolemic Hypernatremia 146 today ,hold lasix today and then PRN daily # DOMENIC on CKD likely 2/2 septic shock , nephrology consulted , avoid nephrotoxic agents # anemia and thrombocytopenia likely due to sepsis , monitor cbc daily , on Hep sc for prophylaxis , HIT pending ,dc zosyn can cause thrombocytopenai as well , switch to rocephin and flagyl # metabolic acidosis; patient had a lactic acidosis pre op * dc NS @ 75 # transaminitis 2/2 septic sock , trend daily , avoid hepatotoxic agents , improving # mental disability #GI and DVT prophylaxis # monitor in ICU prognosis guarded for trachea on Visit type - Emergency Visit Emergency Visit: Yes ED Registration Date: 04/30/19 Care time: The patient presented to the Emergency Department on the above date and was hospitalized for further evaluation of their emergent condition. - New Patient This patient is new to me today: No - Critical Care Critical Care patient: Yes Total Critical Care Time (in minutes): 45 Critical Care Statement: The care of this patient involved high complexity decision making to prevent further life threatening deterioration of the patient 's condition and/or to evaluate & treat vital organ system(s) failure or risk of failure. ATTENDING PHYSICIAN STATEMENT I saw and evaluated the patient. I reviewed the resident's note and discussed the case with the resident. I agree with the resident's findings and plan as documented. SUBJECTIVE: OBJECTIVE: ASSESSMENT AND PLAN:
[2019-05-13] MEDS ORDERED: MAGNESIUM SULF 50% (8.12 MEQ/2 ML-1 GM VIAL) IVPB ONE (07:45)
[2019-05-13] MEDS: FUROSEMIDE 40 MG/4 ML INJECTABLE VIAL IVPUSH SCH (09:26)
[2019-05-13] MEDS: PANTOPRAZOLE SODIUM 40 MG VIAL IVPUSH SCH ×2 (09:27→21:33)
--- NOTE | 2019-05-13 09:30 | PN ---
Progress Note (short form) - Note Progress Note: extubated, then re-intubated same day (saturday) back on sedation continues with low grade fevers and tachycardia Vital Signs Period Temp Pulse Resp BP Sys/Booth Pulse Ox Last 24 Hr 99.2 F-100.4 F 107-124 14-28 85-128/40-68 99-100 cor-rrr lungs decreased bs at bases abd soft,dressing intact, +ASHLEY drain ext trace edema +scrotal edema demarco CBC, BMP 05/13/19 05:20 05/13/19 05:20 Microbiology 05/08/19 05:55 Blood - Peripheral Venous Blood Culture - Preliminary NO GROWTH OBTAINED AFTER 96 HOURS, INCUBATION TO CONTINUE FOR 1 DAYS. 05/08/19 05:50 Blood - Peripheral Venous Blood Culture - Preliminary NO GROWTH OBTAINED AFTER 96 HOURS, INCUBATION TO CONTINUE FOR 1 DAYS. 05/11/19 09:50 Blood - Peripheral Venous Blood Culture - Preliminary NO GROWTH OBTAINED AFTER 24 HOURS, INCUBATION TO CONTINUE FOR 4 DAYS. 05/11/19 09:45 Blood - Peripheral Venous Blood Culture - Preliminary NO GROWTH OBTAINED AFTER 24 HOURS, INCUBATION TO CONTINUE FOR 4 DAYS. 04/30/19 09:00 Blood - Peripheral Venous Blood Culture - Final NO GROWTH AFTER 5 DAYS INCUBATION 04/30/19 09:00 Blood - Peripheral Venous Blood Culture - Final NO GROWTH AFTER 5 DAYS INCUBATION 04/30/19 14:28 Body Fluid - Other Gram Stain - Final 04/30/19 14:28 Body Fluid - Other Body Fluid Culture - Final NO GROWTH OF AEROBIC ORGANISMS AFTER 48 HOURS INCUBATION 04/30/19 14:28 Body Fluid - Other Anaerobic Culture - Final NO ANAEROBES WERE ISOLATED 04/30/19 14:38 Abdomen Gram Stain - Final 04/30/19 12:30 Urine - Urine Clean Catch Urine Culture - Final NO GROWTH OBTAINED cxray no infiltrate a/p fevers-repeat blood cultures negative , central line changed-suggest ct scan abd/pelvis and duplex legs r/o dvt continue meropenem for now leukocytosis resolving thrombocytopenia resolved POD #13 -remain intubated, remains unresponsive off sedation sepsis secondary to perforated viscus s/p repair of perforated bowel respiratory failure- remains intubated DOMENIC-persistent d/w ICU residents Problem List - Problems (1) Sepsis Code(s): A41.9 - SEPSIS, UNSPECIFIED ORGANISM (2) Bowel perforation Code(s): K63.1 - PERFORATION OF INTESTINE (NONTRAUMATIC) (3) DOMENIC (acute kidney injury) Code(s): N17.9 - ACUTE KIDNEY FAILURE, UNSPECIFIED (4) Shock liver Code(s): K72.00 - ACUTE AND SUBACUTE HEPATIC FAILURE WITHOUT COMA
--- NOTE | 2019-05-13 11:24 | PN ---
Progress Note (short form) - Note Progress Note: surgery pt seen and examined. remains intubated and septic. off pressors. got merepenem last night. on tpn. ngt output minimal. lex serous, tmax 101.7 abd- soft, nd, wound clean without granulation Selected Entries 05/13/19 10:00 Temperature 101.7 F H Laboratory Tests 05/13/19 05:20 WBC 10.9 H Plan- Pod #13 (Sat)- no evidence of leakage at rohan patch repair site. no evidence of gastric outlet obstruction. would cont ngt till pod#14. protonix tid. could try feeds or po on pod#14. would not attempt peg until pod#30 if needed. for trach . cont lex until on full feeds or regular diet. wound should be irrigated daily with saline and dry dressing until closed. rik removed.
--- NOTE | 2019-05-13 12:20 | PN ---
Progress Note, Physician History of Present Illness: Pt seen and examined at bedside. He remains in the ICU. He remains intubated. - Current Medication List Current Medications: Active Medications Albuterol/Ipratropium (Duoneb -) 1 amp NEB Q6H PRN PRN Reason: SHORTNESS OF BREATH Furosemide (Lasix Injection -) 60 mg IVPUSH DAILY [facility] Last Admin: 05/13/19 09:26 Dose: 60 mg Heparin Sodium (Porcine) (Heparin -) 5,000 unit SQ TID [facility] Last Admin: 05/13/19 05:33 Dose: 5,000 unit Meropenem 1 gm/ Dextrose 100 mls @ 100 mls/hr IVPB Q12H [facility] Last Admin: 05/13/19 05:34 Dose: 100 mls/hr Fentanyl 500 mcg/ Dextrose 100 mls @ 10 mls/hr IVPB TITR [facility]; Protocol Last Admin: 05/12/19 17:32 Dose: 25 mcg/hr, 5 mls/hr Fat Emulsion-Soy/MCT/[place]/Fish Oil (Smoflipid 20% Iv Fat Emulsion) 250 mls @ 20.833 mls/hr IV DAILY@2200 [facility] Last Admin: 05/12/19 21:42 Dose: 20.833 mls/hr Potassium Acetate 40 meq/Insulin Human Regular 60 units / Folic Acid 1 mg/ Multivitamins/Minerals 10 ml/Thiamine HCl 100 mg/ Sterile Water/ Amino Acids/ Dextrose 1,200 mls @ 50 mls/hr IV DAILY@1600 [facility] Last Admin: 05/12/19 15:57 Dose: 50 mls/hr Insulin Aspart (Novolog Vial Sliding Scale -) 1 vial SQ TIDAC [facility]; Protocol Last Admin: 05/13/19 06:35 Dose: 8 units Ondansetron HCl (Zofran Injection) 4 mg IVPUSH Q6H PRN PRN Reason: NAUSEA AND/OR VOMITING Pantoprazole Sodium (Protonix Iv) 40 mg IVPUSH BID [facility] Last Admin: 05/13/19 09:27 Dose: 40 mg - Objective Vital Signs: Vital Signs Temperature 101.7 F H 05/13/19 10:00 Pulse Rate 118 H 05/13/19 12:00 Respiratory Rate 118 H 05/13/19 12:00 Blood Pressure 106/60 05/13/19 12:00 O2 Sat by Pulse Oximetry (%) 100 05/12/19 20:41 Constitutional: Yes: Calm Eyes: Yes: Conjunctiva Clear HENT: Yes: Atraumatic Neck: Yes: Supple Cardiovascular: Yes: S1, S2 Respiratory: Yes: Mechanically Ventilated Gastrointestinal: Yes: Normal Bowel Sounds, Soft Genitourinary: Yes: Banuelos Present Musculoskeletal: Yes: Muscle Weakness Edema: Yes Edema: LLE: Trace, RLE: Trace Neurological: Yes: Lethargy Labs: CBC, BMP 05/13/19 05:20 05/13/19 05:20 INR, PTT INR 1.36 (0.83-1.09) H 05/05/19 05:00 Fibrinogen 443.0 mg/dL (238-498) 05/05/19 05:00 - ....Imaging Chest X-ray: Report Reviewed Assessment/Plan Current Medications Generic Name Dose Route Start Last Admin Trade Name Freq PRN Reason Stop Dose Admin Albuterol/Ipratropium 1 amp 05/12/19 08:08 Duoneb - NEB Q6H PRN SHORTNESS OF BREATH Furosemide 60 mg 05/12/19 10:00 05/13/19 09:26 Lasix Injection - IVPUSH 60 mg DAILY [facility] Administration Heparin Sodium (Porcine) 5,000 unit 05/02/19 22:00 05/13/19 05:33 Heparin - SQ 5,000 unit TID [facility] Administration Meropenem 1 gm/ Dextrose 100 mls @ 100 mls/hr 05/12/19 06:00 05/13/19 05:34 IVPB 100 mls/hr Q12H [facility] Administration Fentanyl 500 mcg/ Dextrose 100 mls @ 10 mls/hr 05/12/19 09:00 05/12/19 17:32 IVPB 25 mcg/hr TITR [facility] 5 mls/hr Administration Protocol 50 MCG/HR Fat Emulsion-Soy/MCT/[place]/Fish Oil 250 mls @ 20.833 mls/hr 05/12/19 22:00 21:42 Smoflipid 20% Iv Fat Emulsion IV 20.833 mls/hr DAILY@2200 [facility] Administration Potassium Acetate 40 meq/ 1,200 mls @ 50 mls/hr 05/12/19 16:00 05/12/19 15:57 Insulin Human Regular 60 units IV 50 mls/hr / Folic Acid 1 mg/ DAILY@1600 [facility] Administration Multivitamins/Minerals 10 ml/ Thiamine HCl 100 mg/ Sterile Water/ Amino Acids/ Dextrose Insulin Aspart 1 vial 05/01/19 07:00 05/13/19 06:35 Novolog Vial Sliding Scale - SQ 8 units TIDAC [facility] Administration Protocol Ondansetron HCl 4 mg 04/30/19 16:45 Zofran Injection IVPUSH Q6H PRN NAUSEA AND/OR VOMITING Pantoprazole Sodium 40 mg 05/06/19 22:00 05/13/19 09:27 Protonix Iv IVPUSH 40 mg BID [facility] Administration IMPRESSION DOMENIC septic shock perforated duodenal ulcer fluid overload MR DM possible ckd transamitis hyperkalemia hyponatremia PLAN - sodium is improving - bun improving - renal function is improving - cont to monitor labs - lasix prn, can hold today - maintain map 65
--- NOTE | 2019-05-13 12:46 | PN ---
Teaching Attending Note Name of Resident: Karla Billingsley ATTENDING PHYSICIAN STATEMENT I saw and evaluated the patient. I reviewed the resident's note and discussed the case with the resident. I agree with the resident's findings and plan as documented. SUBJECTIVE: Pt seen and examined in the ICU. Remains intubated, sedated. Fevers persists but off pressors. For tracheostomy tomorrow. No BM yet. OBJECTIVE: Vital Signs Period Temp Pulse Resp BP Sys/Booth Pulse Ox Last 24 Hr 99.2 F-101.7 F 107-120 14-118 85-128/40-68 100 Intake & Output 05/10/19 05/11/19 05/12/19 05/13/19 23:59 23:59 23:59 23:59 Intake Total 1869.6 986 3102.1 706.4 Output Total 2910 3695 1280 550 Balance -1040.4 -2709 1822.1 156.4 Weight 88.859 kg 87.815 kg 88.1 kg 91.217 kg Gen: intubated, sedated Heart: RRR Lung: decreased breath sounds at the bases Abd: soft, nontender Ext: less edema CBC, BMP 05/13/19 05:20 05/13/19 05:20 Active Medications Albuterol/Ipratropium (Duoneb -) 1 amp NEB Q6H PRN PRN Reason: SHORTNESS OF BREATH Furosemide (Lasix Injection -) 60 mg IVPUSH DAILY [facility] Last Admin: 05/13/19 09:26 Dose: 60 mg Heparin Sodium (Porcine) (Heparin -) 5,000 unit SQ TID [facility] Last Admin: 05/13/19 05:33 Dose: 5,000 unit Meropenem 1 gm/ Dextrose 100 mls @ 100 mls/hr IVPB Q12H [facility] Last Admin: 05/13/19 05:34 Dose: 100 mls/hr Fentanyl 500 mcg/ Dextrose 100 mls @ 10 mls/hr IVPB TITR [facility]; Protocol Last Admin: 05/12/19 17:32 Dose: 25 mcg/hr, 5 mls/hr Fat Emulsion-Soy/MCT/[place]/Fish Oil (Smoflipid 20% Iv Fat Emulsion) 250 mls @ 20.833 mls/hr IV DAILY@2200 [facility] Last Admin: 02/25/20 21:42 Dose: 20.833 mls/hr Potassium Acetate 40 meq/Insulin Human Regular 60 units / Folic Acid 1 mg/ Multivitamins/Minerals 10 ml/Thiamine HCl 100 mg/ Sterile Water/ Amino Acids/ Dextrose 1,200 mls @ 50 mls/hr IV DAILY@1600 [facility] Last Admin: 05/12/19 15:57 Dose: 50 mls/hr Insulin Aspart (Novolog Vial Sliding Scale -) 1 vial SQ TIDAC [facility]; Protocol Last Admin: 05/13/19 12:34 Dose: 10 units Ondansetron HCl (Zofran Injection) 4 mg IVPUSH Q6H PRN PRN Reason: NAUSEA AND/OR VOMITING Pantoprazole Sodium (Protonix Iv) 40 mg IVPUSH BID [facility] Last Admin: 05/13/19 09:27 Dose: 40 mg ASSESSMENT AND PLAN: Acute Hypoxic Respiratory Failure Perforated Duodenal Ulcer s/p Ex-lap/Jack Patch Repair Peritonitis Septic Shock Acute Kidney Injury Elevated LFTs likely Ischemic Injury Hyponatremia Volume Overload Anemia Thrombocytopenia Mental Retardation HTN DM - continue antibiotics, antifungals per ID - monitor drain output - monitor urine output, creatinine - for CT A/P - LE dopplers - monitor CBC - taper FiO2 to keep SpO2 >90% - protonix - monitor WBC trend - continue TPN - DVT/GI prophylaxis - continue ICU monitoring - prognosis guarded - for tracheostomy tomorrow critical care time spent in reviewing chart, evaluating patient and formulating plan 35 min
[2019-05-13] MEDS ORDERED: [UNRECOGNIZED DRUG - OTHER] IVPB SCH (16:00)
[2019-05-13] MEDS ORDERED: POTASSIUM CHLORIDE IVPB SCH (16:00)
[2019-05-13] MEDS ORDERED: FOLIC ACID IVPB SCH (16:00)
[2019-05-13] MEDS ORDERED: INSULIN REGULAR IVPB SCH (16:00)
--- NOTE | 2019-05-13 16:16 | PN ---
Physical Exam: SUBJECTIVE: Patient seen and examined Continued fevers overnight despite CVC change and meropenem coverage. Required bolus for low BP but MAPs maintained off pressors. No other overnight issues. OBJECTIVE: Vital Signs Period Temp Pulse Resp BP Sys/Booth Pulse Ox Last 24 Hr 99.2 F-101.7 F 107-120 14-21 91-128/47-68 100-100 GENERAL: intubated, sedated HEAD: Normal with no signs of trauma. EYES: sclera anicteric, conjunctiva clear. No ptosis. ENT: Ears normal, nares patent, moist mucous membranes. NGT ~60cm at nares NECK: Trachea midline, full range of motion, supple. LUNGS: coarse b/l BS to auscultation bilaterally. Vent 500, 14, 5, 40% HEART: tachycardic and regular rhythm, S1, S2 without murmur, rub or gallop. ABDOMEN: Soft, nontender, nondistended, hypoactive bowel sounds, surgical dressings overlying mid abd without purulence or signs of infection. ASHLEY with SS drainage, rik removed with WTD dressing in place : scrotum edema with marked improvement EXTREMITIES: 2+ pulses, warm, well-perfused, improving peripheral edema. NEUROLOGICAL: unresponsive, does not follow commands, does not open eyes SKIN: Warm, dry, normal turgor, no rashes or lesions noted, edema Laboratory Results - last 24 hr 05/12/19 05/13/19 05/13/19 16:42 05:19 05:20 WBC 10.9 H RBC 2.81 L Hgb 8.1 L Hct 24.1 L D MCV 85.6 MCH 29.0 MCHC 33.9 RDW 16.1 H Plt Count 218 MPV 11.1 Absolute Neuts (auto) 5.0 Neutrophils % 45.7 Lymphocytes % 31.5 Monocytes % 11.5 H Eosinophils % 8.9 H D Basophils % 2.4 H Nucleated RBC % 0 Sodium Potassium Chloride Carbon Dioxide Anion Gap BUN Creatinine Est GFR (CKD-EPI)AfAm Est GFR (CKD-EPI)NonAf POC Glucometer 292 345 Random Glucose Calcium Phosphorus Magnesium Total Bilirubin AST ALT Alkaline Phosphatase Total Protein Albumin 05/13/19 05/13/19 05:20 12:31 WBC RBC Hgb Hct MCV MCH MCHC RDW Plt Count MPV Absolute Neuts (auto) Neutrophils % Lymphocytes % Monocytes % Eosinophils % Basophils % Nucleated RBC % Sodium 146 H Potassium 4.1 Chloride 114 H Carbon Dioxide 27 Anion Gap 5 L BUN 106.3 H* Creatinine 3.0 H Est GFR (CKD-EPI)AfAm 24.32 Est GFR (CKD-EPI)NonAf 20.98 POC Glucometer 369 Random Glucose 378 H Calcium 7.8 L Phosphorus 4.0 Magnesium 1.4 L Total Bilirubin 1.9 H AST 80 H ALT 69 H Alkaline Phosphatase 109 Total Protein 4.9 L Albumin 1.2 L Active Medications Generic Name Dose Route Start Last Admin Trade Name Freq PRN Reason Stop Dose Admin Albuterol/Ipratropium 1 amp 05/12/19 08:08 Duoneb - NEB Q6H PRN SHORTNESS OF BREATH Furosemide 60 mg 05/12/19 10:00 05/13/19 09:26 Lasix Injection - IVPUSH 60 mg DAILY MARYSE Administration Heparin Sodium (Porcine) 5,000 unit 05/02/19 22:00 05/13/19 05:33 Heparin - SQ 5,000 unit TID MARYSE Administration Meropenem 1 gm/ Dextrose 100 mls @ 100 mls/hr 05/12/19 06:00 05/13/19 05:34 IVPB 100 mls/hr Q12H MARYSE Administration Fentanyl 500 mcg/ Dextrose 100 mls @ 10 mls/hr 05/12/19 09:00 05/12/19 17:32 IVPB 25 mcg/hr TITR MARYSE 5 mls/hr Administration Protocol 50 MCG/HR Fat Emulsion-Soy/MCT/[place]/Fish Oil 250 mls @ 20.833 mls/hr 05/12/19 22:00 05/12/19 21:42 Smoflipid 20% Iv Fat Emulsion IV 20.833 mls/hr DAILY@2200 MARYSE Administration Potassium Chloride 40 meq/ 1,200 mls @ 50 mls/hr 05/13/19 16:00 Insulin Human Regular 70 units IVPB / Folic Acid 1 mg/ DAILY@1600 [facility] Multivitamins/Minerals 10 ml/ Potassium Phosphate 20 mm/ Calcium Gluconate 1,600 mg/ Sterile Water/ Amino Acids/ Dextrose Insulin Aspart 1 vial 05/01/19 07:00 05/13/19 12:34 Novolog Vial Sliding Scale - SQ 10 units TIDAC MARYSE Administration Protocol Ondansetron HCl 4 mg 04/30/19 16:45 Zofran Injection IVPUSH Q6H PRN NAUSEA AND/OR VOMITING Pantoprazole Sodium 40 mg 05/06/19 22:00 05/13/19 09:27 Protonix Iv IVPUSH 40 mg BID MARYSE Administration ASSESSMENT/PLAN: 64 year old male with PMH of MR, HTN, DM, b/l LE swelling who was BIBEMS for a 1 day h/o Hypotension (70/51), lethargy and tachycardia, found to have free air under the diaphragm s/p omental patch for duodenal perforation POD13. Post-op admission to ICU intubated for HD monitoring. Neuro -sedated on fentanyl 25mcg -per Juan Jose, patient speaks one word sentences and performs some ADLs without assist Pulmonary -Intubated -Vent: 500, 14, 6, 40% --> CPAP as tolerated -consulted Dr Reese for trach; discussed with tax associate attorney Mr Vigil and patient was consented -plan for trach ; tax associate attorney consented over the phone on 05/11/19 ~1pm -will hold all AC on the evening of 05/13 Cardio -Hypotension --likely 2/2 septic shock -off pressors -CVP goal 8-12; 25g albumin bolus prn if hypotensive GI -Perforated duodenum --possibly 2/2 freq NSAID usage vs H pylori -Transamnitis --likely shocked liver, levels improving daily -S/p Ex-Lap w/ Jack Patch([place]lita, 04/30/19) -NGT placed surgically. per surgery NGT SHOULD NOT BE REMOVED OR MANIPULATED for 2 weeks -per surgery, patient may have PO trial on POD14 -ASHLEY drain to stay in place per surgery instructions -surgical packing and rik removed; per surgery instruction: irrigate wound with WTD saline and cover with dry dressing daily -40mg protonix BID -Abx regimen: s/p flagyl, fluc, ceftr now all DCd -tolerating TPN -increased BUN thought to be 2/2 to TPN; protein content changed Renal #DOMENIC --likely 2/2 cardiorenal syndrome - Cr improving 3.0, BUN 106.3 - Nephro([facility]) consult: -continue lasix 60mg BID; holding lasix prn given tenuous pressures ID -downtrending WBC since surgery, today 10.9 -CTH(05/06/19): neg acute path -CT A/P(05/06/19): free air along the subhepatic space, likely postsurgical -ceftr and flagyl DCd; recommending for DC central line and new ling placement -s/p new line and 1g vanc with AM vanc level ordered -on daily meropenem now; continues to spike fever despite radha -CT abd/pel 05/13/19: minimal pneumoperitoneum demonstrated in RUQ along ASHLEY drain unchanged from last CT; no evidence of intra-abdominal fluid collections -followup DVT study Heme # thrombocytopenia, no resolved - plt stable; H&H stable - HIT panel negative -restarted HSQ TID; will hold this evening for trach FEN -TPN -replete lytes prn -NGT to LWS PPX -Protonix BID -HSQ TID Dispo -ICU monitoring Visit type - Emergency Visit Emergency Visit: No - New Patient This patient is new to me today: No - Critical Care Critical Care patient: Yes Total Critical Care Time (in minutes): 40 Critical Care Statement: The care of this patient involved high complexity decision making to prevent further life threatening deterioration of the patient's condition and/or to evaluate & treat vital organ system(s) failure or risk of failure. ATTENDING PHYSICIAN STATEMENT I saw and evaluated the patient. I reviewed the resident's note and discussed the case with the resident. I agree with the resident's findings and plan as documented. SUBJECTIVE: OBJECTIVE: ASSESSMENT AND PLAN:
[2019-05-13] MEDS ORDERED: fentaNYL CITRATE 250 MCG/5 ML VIAL ONE (16:20)
[2019-05-13] MEDS: FENTANYL INJECTION 500 MCG in DEXTROSE 5%-WATER - 90 ML IVPB SCH (16:27)
[2019-05-13] MEDS: FAT EMUL/SOY/MCT/OLIV/FISH OIL 250 ML IV SCH (21:33)
--- NOTE | 2019-05-13 23:38 | PN ---
Teaching Attending Note Name of Resident: Vidal Jeff ATTENDING PHYSICIAN STATEMENT I saw and evaluated the patient. I reviewed the resident's note and discussed the case with the resident. I agree with the resident's findings and plan as documented. SUBJECTIVE: Patient seen and evaluated at bedside, intubated and mechanically ventilated. Opens eyes but doesn't follow commands. VS otherwise stable, off pressors. OBJECTIVE: GENERAL: intubated and mechanically ventilated, opens eyes, doesn't follow commands HEAD: Normal with no signs of trauma. EYES: sclera anicteric, conjunctiva clear. No ptosis. ENT: Ears normal, nares patent, moist mucous membranes. LUNGS: coarse b/l BS to auscultation bilaterally. HEART: Regular rate and rhythm, S1, S2 without murmur, rub or gallop. ABDOMEN: Soft, non-tender, non-distended, BS+, open abdominal incision without pus or discharge EXTREMITIES: 2+ pulses, warm, well-perfused, nonpitting edema. NEUROLOGICAL: opens eyes does not track does not follow commands SKIN: Warm, dry, normal turgor, no rashes or lesions noted Vital Signs - 24 hr 05/13/19 05/13/19 05/13/19 00:00 00:10 02:00 Temperature 100.1 F H Pulse Rate 115 H 112 H Respiratory 18 19 19 Rate Blood Pressure 122/63 128/62 O2 Sat by Pulse Oximetry (%) 05/13/19 05/13/19 05/13/19 04:00 04:36 06:00 Temperature 99.9 F H Pulse Rate 119 H 118 H Respiratory 20 17 21 H Rate Blood Pressure 111/61 124/59 L O2 Sat by Pulse Oximetry (%) 05/13/19 05/13/19 05/13/19 08:00 09:00 10:00 Temperature 101.7 F H Pulse Rate 120 H 119 H Respiratory 19 18 Rate Blood Pressure 120/53 L 118/47 L O2 Sat by Pulse 100 Oximetry (%) 05/13/19 05/13/19 05/13/19 12:00 14:00 16:00 Temperature 99.8 F H 100 F H Pulse Rate 118 H 118 H 112 H Respiratory 17 18 17 Rate Blood Pressure 106/60 96/52 L 109/57 L O2 Sat by Pulse Oximetry (%) 05/13/19 05/13/19 05/13/19 17:35 20:00 20:16 Temperature 100.8 F H 100.1 F H Pulse Rate 112 H 114 H Respiratory 18 16 17 Rate Blood Pressure 109/54 L 102/52 L O2 Sat by Pulse Oximetry (%) 05/13/19 05/13/19 05/13/19 20:55 22:00 22:53 Temperature 99.9 F H Pulse Rate 115 H Respiratory 17 21 H 21 H Rate Blood Pressure 113/53 L O2 Sat by Pulse 100 100 Oximetry (%) Microbiology 05/11/19 09:50 Blood - Peripheral Venous Blood Culture - Preliminary NO GROWTH OBTAINED AFTER 48 HOURS, INCUBATION TO CONTINUE FOR 3 DAYS. 05/11/19 09:45 Blood - Peripheral Venous Blood Culture - Preliminary NO GROWTH OBTAINED AFTER 48 HOURS, INCUBATION TO CONTINUE FOR 3 DAYS. 05/08/19 05:55 Blood - Peripheral Venous Blood Culture - Preliminary NO GROWTH OBTAINED AFTER 96 HOURS, INCUBATION TO CONTINUE FOR 1 DAYS. 05/08/19 05:50 Blood - Peripheral Venous Blood Culture - Preliminary NO GROWTH OBTAINED AFTER 96 HOURS, INCUBATION TO CONTINUE FOR 1 DAYS. 04/30/19 09:00 Blood - Peripheral Venous Blood Culture - Final NO GROWTH AFTER 5 DAYS INCUBATION 04/30/19 09:00 Blood - Peripheral Venous Blood Culture - Final NO GROWTH AFTER 5 DAYS INCUBATION 04/30/19 14:28 Body Fluid - Other Gram Stain - Final 04/30/19 14:28 Body Fluid - Other Body Fluid Culture - Final NO GROWTH OF AEROBIC ORGANISMS AFTER 48 HOURS INCUBATION 04/30/19 14:28 Body Fluid - Other Anaerobic Culture - Final NO ANAEROBES WERE ISOLATED 04/30/19 14:38 Abdomen Gram Stain - Final 04/30/19 12:30 Urine - Urine Clean Catch Urine Culture - Final NO GROWTH OBTAINED Laboratory Results - last 24 hr 05/13/19 05/13/19 05/13/19 05:19 05:20 05:20 WBC 10.9 H RBC 2.81 L Hgb 8.1 L Hct 24.1 L D MCV 85.6 MCH 29.0 MCHC 33.9 RDW 16.1 H Plt Count 218 MPV 11.1 Absolute Neuts (auto) 5.0 Neutrophils % 45.7 Lymphocytes % 31.5 Monocytes % 11.5 H Eosinophils % 8.9 H D Basophils % 2.4 H Nucleated RBC % 0 Sodium 146 H Potassium 4.1 Chloride 114 H Carbon Dioxide 27 Anion Gap 5 L BUN 106.3 H* Creatinine 3.0 H Est GFR (CKD-EPI)AfAm 24.32 Est GFR (CKD-EPI)NonAf 20.98 POC Glucometer 345 Random Glucose 378 H Calcium 7.8 L Phosphorus 4.0 Magnesium 1.4 L Total Bilirubin 1.9 H AST 80 H ALT 69 H Alkaline Phosphatase 109 Total Protein 4.9 L Albumin 1.2 L 05/13/19 05/13/19 12:31 16:58 WBC RBC Hgb Hct MCV MCH MCHC RDW Plt Count MPV Absolute Neuts (auto) Neutrophils % Lymphocytes % Monocytes % Eosinophils % Basophils % Nucleated RBC % Sodium Potassium Chloride Carbon Dioxide Anion Gap BUN Creatinine Est GFR (CKD-EPI)AfAm Est GFR (CKD-EPI)NonAf POC Glucometer 369 254 Random Glucose Calcium Phosphorus Magnesium Total Bilirubin AST ALT Alkaline Phosphatase Total Protein Albumin Current Medications Generic Name Dose Route Start Last Admin Trade Name Freq PRN Reason Stop Dose Admin Albuterol/Ipratropium 1 amp 05/12/19 08:08 Duoneb - NEB Q6H PRN SHORTNESS OF BREATH Furosemide 60 mg 05/12/19 10:00 05/13/19 09:26 Lasix Injection - IVPUSH 60 mg DAILY MARYSE Administration Heparin Sodium (Porcine) 5,000 unit 05/02/19 22:00 05/13/19 16:26 Heparin - SQ 5,000 unit TID MARYSE Administration Meropenem 1 gm/ Dextrose 100 mls @ 100 mls/hr 05/12/19 06:00 05/13/19 17:01 IVPB 100 mls/hr Q12H MARYSE Administration Fentanyl 500 mcg/ Dextrose 100 mls @ 10 mls/hr 05/12/19 09:00 05/13/19 16:27 IVPB 25 mcg/hr TITR MARYSE 5 mls/hr Administration Protocol 50 MCG/HR Fat Emulsion-Soy/MCT/[place]/Fish Oil 250 mls @ 20.833 mls/hr 05/12/19 22:00 21:33 Smoflipid 20% Iv Fat Emulsion IV 20.833 mls/hr DAILY@2200 MARYSE Administration Potassium Chloride 40 meq/ 1,200 mls @ 50 mls/hr 05/13/19 16:00 05/13/19 16: 26 Insulin Human Regular 70 units IVPB 50 mls/hr / Folic Acid 1 mg/ DAILY@1600 MARYSE Administration Multivitamins/Minerals 10 ml/ Potassium Phosphate 20 mm/ Calcium Gluconate 1,600 mg/ Sterile Water/ Amino Acids/ Dextrose Insulin Aspart 1 vial 05/01/19 07:00 05/13/19 16:59 Novolog Vial Sliding Scale - SQ 6 units TIDAC MARYSE Administration Protocol Ondansetron HCl 4 mg 04/30/19 16:45 Zofran Injection IVPUSH Q6H PRN NAUSEA AND/OR VOMITING Pantoprazole Sodium 40 mg 05/06/19 22:00 05/13/19 21:33 Protonix Iv IVPUSH 40 mg BID MARYSE Administration A/P: 64 M h/o MR, HTN, DM, b/l LE swelling who was BIBEMS for a 1 day h/o Hypotension , lethargy and tachycardia. Admitted for perforated duodenal ulcer requiring ex- lap. Will be managed in the ICU. Perforated duodenal ulcer s/p exlap POD # 10 Finish course of abx with Meropenem follow cultures Septic shock d/t perforated ulcer, now holding BP off pressors cont. IV hydration, abx, TPN Surgery consult: Dr Bhat HTN hold off BP meds in view of active infection, sepsis T2DM insulin drip as needed to maintain F/S 140-180 DVT ppx: Lovenox SC cleared for AC as per surgery team GI ppx: PPI Cont. ICU monitoring
[2019-05-14] MEDS ORDERED: MEROPENEM 1 GM VIAL (RESTRICTED TO ID) IVPB ONE ×2 (06:34→17:58)
[2019-05-14] MEDS ORDERED: DEXTROSE 5%-WATER 100 ML IVPB ONE ×2 (06:35→17:58)
[2019-05-14] MEDS: MEROPENEM 1 GM in DEXTROSE 5%-WATER 100 ML IVPB SCH ×2 (06:36→18:11)
[2019-05-14] MEDS: INSULIN SLIDING SCALE (NOVOLOG) 1 VIAL SQ SCH ×3 (06:36→18:10)
[2019-05-14 06:57] LABS: BASO % 1.5 % (0-2.0); EOS % 8.6 % (0-4.5); HEMATOCRIT 23.7 % (35.4-49); LYMPH % 27.5 % (8-40); MCH 29.1 pg (25.7-33.7); MCHC 33.8 g/dl (32.0-35.9); MEAN CELL VOLUME 85.9 fl (80-96); MEAN PLT VOLUME 11.4 fl (7.5-11.1); MONO % 10.3 % (3.8-10.2); NEUT % 52.1 % (42.8-82.8); PLATELET COUNT 216 K/MM3 (134-434); RBC 2.76 M/mm3 (4.00-5.60); RDW 15.6 % (11.9-15.9); WHITE BLOOD COUNT 10.8 K/mm3 (4.0-10.0)
[2019-05-14] MEDS ORDERED: MIDAZOLAM HCL 5 MG/1 ML Single Dose Vial IVPUSH ONE (07:32)
[2019-05-14] MEDS ORDERED: ROCURONIUM BROMIDE 50 MG/5 ML VIAL IVPUSH ONE ×2 (07:32)
[2019-05-14 07:43] LABS: ALBUMIN 1.2 g/dl (3.4-5.0); BILIRUBIN,TOTAL 1.9 mg/dL (0.2-1); CALCIUM 8.5 mg/dL (8.5-10.1); CREATININE 2.7 mg/dL (0.55-1.3); MAGNESIUM 2.2 mg/dL (1.8-2.4); PHOSPHOROUS 4.1 mg/dL (2.5-4.9); POTASSIUM 4.4 mmol/L (3.5-5.1); TOT PROT 5.2 g/dl (6.4-8.2)
[2019-05-14 07:59] LABS: BLOOD UREA NITROGEN 106.8 mg/dL (7-18)
[2019-05-14] MEDS ORDERED: LIDOCAINE HCL 1%, 10 MG/ML (20ML VIAL) ONE (08:14)
[2019-05-14] MEDS ORDERED: fentaNYL CITRATE 250 MCG/5 ML VIAL ONE ×3 (08:17→22:35)
[2019-05-14] MEDS ORDERED: LIDOCAINE 1%-EPI 1:100,000 30 ML MDV IJ ONE (08:20)
[2019-05-14] MEDS ORDERED: PROPOFOL 1,000,000 MCG/100 ML VIAL ONE (08:35)
--- NOTE | 2019-05-14 09:35 | PN ---
Progress Note (short form) - Note Progress Note: surgery pt seen and examined. no change in condition. for trach. abd- soft, nd, wound clean without granulation plan remains unchanged as below Plan- Pod #13 (Wed)- no evidence of leakage at rohan patch repair site. no evidence of gastric outlet obstruction. would cont ngt till pod#14. protonix tid. could try feeds or po on pod#14. would not attempt peg until pod#30 if needed. for trach today. cont lex until on full feeds or regular diet. wound should be irrigated daily with saline and dry dressing until closed. rik removed.
[2019-05-14] MEDS: PROPOFOL 1,000,000 MCG/100 ML VIAL IVPB SCH (09:45)
[2019-05-14] MEDS ORDERED: LIDOCAINE 1%/EPI 1:100000 (20 ML MULTI DOSE VIAL) IJ ONE (10:08)
[2019-05-14] MEDS ORDERED: PT OWN MED DRAWER 7, Y5N ONE (11:26)
[2019-05-14] MEDS: FUROSEMIDE 40 MG/4 ML INJECTABLE VIAL IVPUSH SCH (11:39)
[2019-05-14] MEDS: PANTOPRAZOLE SODIUM 40 MG VIAL IVPUSH SCH ×2 (11:39→22:00)
--- NOTE | 2019-05-14 12:15 | OPR ---
Patient Name: Dewey Bojorquez MR#: [id number] Procedure Date: 05/14/2019 Preoperative Diagnosis: Respiratory failure; Perforated duodenal ulcer. Postoperative Diagnosis: same. Procedure: 1. Bronchoscopy (performed by Dr. Desai); 2. Tracheostomy percutaneously placed (Shiley #[id number]). Indication: Respiratory failure; Surgeon(s): Asael Guardado MD Cosurgeon: Dr. Desai. Pickle Cutter Surgeon: gil. Anesthesia: General endotracheal; Findings: Abundant thick secretions; Specimens Sent: 1. na; Complications: none Drains / Tubes / Catheters: na Hardware / Implants: na Blood / Fluid Losses: minimal Post-Operative Condition: Stable. Indications: This patient is a 64 year-old male with respiratory failure referred for tracheostomy by Dr. Desai and the ICU team. Consent was obtained from the legal gaurdian by the ICU team. Details of Procedure: The procedure was done at the bedside. We began with bronchoscopy to clear the airway for the procedure. This was done by Dr. Desai. After this, the neck was prepared and draped in standard fashion. We then made a transverse incision below the cricoid cartilage. We withdrew the endotracheal airway until we were close to the vocal cords. With the incision in place, we inserted the needle from the percutaneous bronchoscopy kit under direct bronchoscopic vision identifying approximately the 3rd ring. We then passed a wire under vision. We then dilated up and inserted the tracheostomy. We put the cuff up and connected the ventilator. We placed the bronchoscope through the tracheostomy and then above. There was no active bleeding and the placement was good.
--- NOTE | 2019-05-14 13:28 | PN ---
Teaching Attending Note Name of Resident: Oskar Saha ATTENDING PHYSICIAN STATEMENT I saw and evaluated the patient. I reviewed the resident's note and discussed the case with the resident. I agree with the resident's findings and plan as documented. SUBJECTIVE: Patient seen and examined in the ICU. Remains intubated Remains off levophed drip. Patient was prepped and draped. Sedation with propofol and Versed given and subsequently was paralyzed with Rocuronium. The Bronchosope was then inserted via the ETT, which was in suboptimal position. Patient subsequently Re-intubated with Glidescope, blade 3, 7.5 ETT. Airway secured and the Bronchoscope was re-inserted. Scattered secretions were suctioned and the Bronchoscope was withdrawan into the distal tip of the ETT. Subsequently Percutaneous Tracheostomy was placed by CTS. No noted complications. STAT CXR ordered. OBJECTIVE: Intake & Output 05/11/19 05/12/19 05/13/19 05/14/19 23:59 23:59 23:59 23:59 Intake Total 986 3102.1 2257.4 606 Output Total 3695 1280 1070 710 Balance -2709 1822.1 1187.4 -104 Weight 193 lb 9.6 oz 194 lb 3.636 oz 201 lb 1.6 oz 198 lb 6.4 oz Last Vital Signs Temp Pulse Resp BP Pulse Ox 99.9 F H 114 H 18 124/62 100 05/14/19 06:00 05/14/19 08:25 05/14/19 08:25 05/14/19 06:00 05/14/19 08:25 Active Medications Albuterol/Ipratropium (Duoneb -) 1 amp NEB Q6H PRN PRN Reason: SHORTNESS OF BREATH Furosemide (Lasix Injection -) 60 mg IVPUSH DAILY [facility] Last Admin: 05/14/19 11:39 Dose: 60 mg Heparin Sodium (Porcine) (Heparin -) 5,000 unit SQ TID MARYSE Last Admin: 05/13/19 16:26 Dose: 5,000 unit Meropenem 1 gm/ Dextrose 100 mls @ 100 mls/hr IVPB Q12H MARYSE Last Admin: 05/14/19 06:36 Dose: 100 mls/hr Fentanyl 500 mcg/ Dextrose 100 mls @ 10 mls/hr IVPB TITR MARYSE; Protocol Last Titration: 05/14/19 06:49 Dose: 75 mcg/hr, 15 mls/hr Potassium Chloride 40 meq/Insulin Human Regular 70 units / Folic Acid 1 mg/ Multivitamins/Minerals 10 ml/Potassium Phosphate 20 mm/Calcium Gluconate 1,600 mg/Sterile Water/ Amino Acids/Dextrose 1,200 mls @ 50 mls/hr IVPB DAILY@1600 [facility] Last Admin: 05/13/19 16:26 Dose: 50 mls/hr Propofol (Diprivan -) 1,000,000 mcg in 100 mls @ 2.7 mls/hr IVPB TITR [facility]; Protocol Last Admin: 05/14/19 09:45 Dose: 5 mcg/kg/min, 2.7 mls/hr Fat Emulsion-Soy/MCT/[place]/Fish Oil (Smoflipid 20% Iv Fat Emulsion) 250 mls @ 10 mls/hr IV DAILY@2200 [facility] Stop: 05/13/19 21:59 Insulin Aspart (Novolog Vial Sliding Scale -) 1 vial SQ TIDAC [facility]; Protocol Last Admin: 05/14/19 12:43 Dose: 6 units Ondansetron HCl (Zofran Injection) 4 mg IVPUSH Q6H PRN PRN Reason: NAUSEA AND/OR VOMITING Pantoprazole Sodium (Protonix Iv) 40 mg IVPUSH BID [facility] Last Admin: 05/14/19 11:39 Dose: 40 mg Gen: intubated, sedated Heart: RRR Lung: scattered rhonchi Abd:soft, +ASHLEY with serosanguinous drainage Ext: + edema Laboratory Results - last 24 hr 05/13/19 05/14/19 05/14/19 16:58 05:25 05:25 WBC 10.8 H RBC 2.76 L Hgb 8.0 L Hct 23.7 L MCV 85.9 MCH 29.1 MCHC 33.8 RDW 15.6 Plt Count 216 MPV 11.4 H Absolute Neuts (auto) 5.6 Neutrophils % 52.1 Lymphocytes % 27.5 Monocytes % 10.3 H Eosinophils % 8.6 H Basophils % 1.5 Nucleated RBC % 0 Sodium 148 H Potassium 4.4 Chloride 116 H Carbon Dioxide 25 Anion Gap 8 BUN 106.8 H* Creatinine 2.7 H Est GFR (CKD-EPI)AfAm 27.62 Est GFR (CKD-EPI)NonAf 23.83 POC Glucometer 254 Random Glucose 213 H Calcium 8.5 Phosphorus 4.1 Magnesium 2.2 Total Bilirubin 1.9 H AST 71 H ALT 61 Alkaline Phosphatase 107 Total Protein 5.2 L Albumin 1.2 L 05/14/19 05/14/19 05:44 12:35 WBC RBC Hgb Hct MCV MCH MCHC RDW Plt Count MPV Absolute Neuts (auto) Neutrophils % Lymphocytes % Monocytes % Eosinophils % Basophils % Nucleated RBC % Sodium Potassium Chloride Carbon Dioxide Anion Gap BUN Creatinine Est GFR (CKD-EPI)AfAm Est GFR (CKD-EPI)NonAf POC Glucometer 193 215 Random Glucose Calcium Phosphorus Magnesium Total Bilirubin AST ALT Alkaline Phosphatase Total Protein Albumin ASSESSMENT AND PLAN: Acute Hypoxic Respiratory Failure Perforated Duodenal Ulcer s/p Ex-lap/Jack Patch Repair Peritonitis Septic Shock Acute Kidney Injury Elevated LFTs likely Ischemic Injury Hyponatremia Volume Overload Anemia Thrombocytopenia Mental Retardation HTN DM - Check CXR - continue antibiotics, antifungals per ID - monitor drain output - monitor urine output, creatinine - monitor CBC - D/W surgery, start Enteral feeds and taper and DC TPN - protonix - monitor WBC trend - continue TPN - DVT/GI prophylaxis - prognosis guarded - Lasix - LTAC evaluation Dr Desai Critical care time spent in reviewing chart, evaluating patient and formulating plan 36 min
--- NOTE | 2019-05-14 14:15 | PN ---
Progress Note, Physician History of Present Illness: Pt seen and examined at bedside. He had a trache today. - Current Medication List Current Medications: Active Medications Albuterol/Ipratropium (Duoneb -) 1 amp NEB Q6H PRN PRN Reason: SHORTNESS OF BREATH Furosemide (Lasix Injection -) 60 mg IVPUSH DAILY [facility] Last Admin: 05/14/19 11:39 Dose: 60 mg Heparin Sodium (Porcine) (Heparin -) 5,000 unit SQ TID [facility] Last Admin: 05/13/19 16:26 Dose: 5,000 unit Meropenem 1 gm/ Dextrose 100 mls @ 100 mls/hr IVPB Q12H [facility] Last Admin: 05/14/19 06:36 Dose: 100 mls/hr Fentanyl 500 mcg/ Dextrose 100 mls @ 10 mls/hr IVPB TITR [facility]; Protocol Last Titration: 05/14/19 06:49 Dose: 75 mcg/hr, 15 mls/hr Propofol (Diprivan -) 1,000,000 mcg in 100 mls @ 2.7 mls/hr IVPB TITR [facility]; Protocol Last Admin: 05/14/19 09:45 Dose: 5 mcg/kg/min, 2.7 mls/hr Fat Emulsion-Soy/MCT/[place]/Fish Oil (Smoflipid 20% Iv Fat Emulsion) 250 mls @ 10 mls/hr IV DAILY@2200 [facility] Stop: 05/13/19 21:59 Insulin Aspart (Novolog Vial Sliding Scale -) 1 vial SQ TIDAC [facility]; Protocol Last Admin: 05/14/19 12:43 Dose: 6 units Ondansetron HCl (Zofran Injection) 4 mg IVPUSH Q6H PRN PRN Reason: NAUSEA AND/OR VOMITING Pantoprazole Sodium (Protonix Iv) 40 mg IVPUSH BID [facility] Last Admin: 05/14/19 11:39 Dose: 40 mg - Objective Vital Signs: Vital Signs Temperature 99.9 F H 05/14/19 06:00 Pulse Rate 114 H 05/14/19 08:25 Respiratory Rate 17 05/14/19 12:00 Blood Pressure 124/62 05/14/19 06:00 O2 Sat by Pulse Oximetry (%) 100 05/14/19 08:25 Constitutional: Yes: Calm Eyes: Yes: Conjunctiva Clear HENT: Yes: Atraumatic Neck: Yes: Other (trache) Cardiovascular: Yes: S1, S2 Respiratory: Yes: Mechanically Ventilated Gastrointestinal: Yes: Soft Genitourinary: Yes: Banuelos Present Musculoskeletal: Yes: Muscle Weakness Edema: Yes Edema: LLE: Trace, RLE: Trace Neurological: Yes: Lethargy Labs: CBC, BMP 05/14/19 05:25 05/14/19 05:25 INR, PTT INR 1.36 (0.83-1.09) H 05/05/19 05:00 Fibrinogen 443.0 mg/dL (238-498) 05/05/19 05:00 - ....Imaging Chest X-ray: Report Reviewed Assessment/Plan Current Medications Generic Name Dose Route Start Last Admin Trade Name Freq PRN Reason Stop Dose Admin Albuterol/Ipratropium 1 amp 05/12/19 08:08 Duoneb - NEB Q6H PRN SHORTNESS OF BREATH Furosemide 60 mg 05/12/19 10:00 05/14/19 11:39 Lasix Injection - IVPUSH 60 mg DAILY MARYSE Administration Heparin Sodium (Porcine) 5,000 unit 05/02/19 22:00 05/13/19 16:26 Heparin - SQ 5,000 unit TID MARYSE Administration Meropenem 1 gm/ Dextrose 100 mls @ 100 mls/hr 05/12/19 06:00 05/14/19 06:36 IVPB 100 mls/hr Q12H MARYSE Administration Fentanyl 500 mcg/ Dextrose 100 mls @ 10 mls/hr 05/12/19 09:00 05/14/19 06:49 IVPB 75 mcg/hr TITR MARYSE 15 mls/hr Titration Protocol 50 MCG/HR Propofol 1,000,000 mcg in 100 mls @ 2.7 mls/hr 05/14/19 10:00 05/14/19 09:45 Diprivan - IVPB 5 mcg/kg/min TITR MARYSE 2.7 mls/hr Administration Protocol 5 MCG/KG/MIN Fat Emulsion-Soy/MCT/[place]/Fish Oil 250 mls @ 10 mls/hr 05/12/19 22:00 Smoflipid 20% Iv Fat Emulsion IV 05/13/19 21:59 DAILY@2200 MARYSE Insulin Aspart 1 vial 05/01/19 07:00 05/14/19 12:43 Novolog Vial Sliding Scale - SQ 6 units TIDAC MARYSE Administration Protocol Ondansetron HCl 4 mg 04/30/19 16:45 Zofran Injection IVPUSH Q6H PRN NAUSEA AND/OR VOMITING Pantoprazole Sodium 40 mg 05/06/19 22:00 05/14/19 11:39 Protonix Iv IVPUSH 40 mg BID MARYSE Administration IMPRESSION DOMENIC septic shock perforated duodenal ulcer fluid overload MR DM possible ckd transamitis hyperkalemia hyponatremia PLAN - pt will start tube feeds today, can stop tpn when he starts - free water with feeds - monitor lytes - software implementation project manager is improving - monitor bun - lasix as needed
[2019-05-14] MEDS: HEPARIN NA (PORCINE) 5,000 UNITS/ML 1ML VIAL SQ SCH ×2 (15:00→21:59)
--- NOTE | 2019-05-14 16:19 | PN ---
Physical Exam: SUBJECTIVE: Patient seen and examined O/N: SQH helded for tracheostomy in AM; mild desaturation On Fentanyl gtt OBJECTIVE: Vital Signs Period Temp Pulse Resp BP Sys/Booth Pulse Ox Last 24 Hr 99.9 F-100.8 F 109-124 13-26 97-142/52-73 100-100 GENERAL: intubated, sedated HEAD: Normal with no signs of trauma. EYES: sclera anicteric, conjunctiva clear. No ptosis. ENT: Ears normal, nares patent, moist mucous membranes. NGT ~60cm at nares NECK: Trachea midline, full range of motion, supple. LUNGS: coarse b/l BS to auscultation bilaterally. Vent 500, 14, 5, 35% HEART: tachycardic and regular rhythm, S1, S2 without murmur, rub or gallop. ABDOMEN: Soft, nontender, nondistended, hypoactive bowel sounds, surgical dressings overlying mid abd without purulence or signs of infection. ASHLEY with SS drainage, rik removed with WTD dressing in place : scrotum edema with marked improvement EXTREMITIES: 2+ pulses, warm, well-perfused, improving peripheral edema. NEUROLOGICAL: unresponsive, does not follow commands, does not open eyes; withdrawing to painful stimuli; on Fentanyl gtt SKIN: Warm, dry, normal turgor, no rashes or lesions noted, edema Laboratory Results - last 24 hr 05/13/19 05/14/19 05/14/19 16:58 05:25 05:25 WBC 10.8 H RBC 2.76 L Hgb 8.0 L Hct 23.7 L MCV 85.9 MCH 29.1 MCHC 33.8 RDW 15.6 Plt Count 216 MPV 11.4 H Absolute Neuts (auto) 5.6 Neutrophils % 52.1 Lymphocytes % 27.5 Monocytes % 10.3 H Eosinophils % 8.6 H Basophils % 1.5 Nucleated RBC % 0 Sodium 148 H Potassium 4.4 Chloride 116 H Carbon Dioxide 25 Anion Gap 8 BUN 106.8 H* Creatinine 2.7 H Est GFR (CKD-EPI)AfAm 27.62 Est GFR (CKD-EPI)NonAf 23.83 POC Glucometer 254 Random Glucose 213 H Calcium 8.5 Phosphorus 4.1 Magnesium 2.2 Total Bilirubin 1.9 H AST 71 H ALT 61 Alkaline Phosphatase 107 Total Protein 5.2 L Albumin 1.2 L 05/14/19 05/14/19 05:44 12:35 WBC RBC Hgb Hct MCV MCH MCHC RDW Plt Count MPV Absolute Neuts (auto) Neutrophils % Lymphocytes % Monocytes % Eosinophils % Basophils % Nucleated RBC % Sodium Potassium Chloride Carbon Dioxide Anion Gap BUN Creatinine Est GFR (CKD-EPI)AfAm Est GFR (CKD-EPI)NonAf POC Glucometer 193 215 Random Glucose Calcium Phosphorus Magnesium Total Bilirubin AST ALT Alkaline Phosphatase Total Protein Albumin Active Medications Generic Name Dose Route Start Last Admin Trade Name Freq PRN Reason Stop Dose Admin Albuterol/Ipratropium 1 amp 05/12/19 08:08 Duoneb - NEB Q6H PRN SHORTNESS OF BREATH Furosemide 60 mg 05/12/19 10:00 05/14/19 11:39 Lasix Injection - IVPUSH 60 mg DAILY MARYSE Administration Heparin Sodium (Porcine) 5,000 unit 05/02/19 22:00 05/14/19 15:00 Heparin - SQ 5,000 unit TID MARYSE Administration Meropenem 1 gm/ Dextrose 100 mls @ 100 mls/hr 05/12/19 06:00 05/14/19 06:36 IVPB 100 mls/hr Q12H MARYSE Administration Fentanyl 500 mcg/ Dextrose 100 mls @ 10 mls/hr 05/12/19 09:00 05/14/19 06:49 IVPB 75 mcg/hr TITR MARYSE 15 mls/hr Titration Protocol 50 MCG/HR Propofol 1,000,000 mcg in 100 mls @ 2.7 mls/hr 05/14/19 10:00 05/14/19 09:45 Diprivan - IVPB 5 mcg/kg/min TITR MARYSE 2.7 mls/hr Administration Protocol 5 MCG/KG/MIN Fat Emulsion-Soy/MCT/[place]/Fish Oil 250 mls @ 10 mls/hr 05/12/19 22:00 Smoflipid 20% Iv Fat Emulsion IV 05/13/19 21:59 DAILY@2200 MARYSE Insulin Aspart 1 vial 05/01/19 07:00 05/14/19 12:43 Novolog Vial Sliding Scale - SQ 6 units TIDAC MARYSE Administration Protocol Ondansetron HCl 4 mg 04/30/19 16:45 Zofran Injection IVPUSH Q6H PRN NAUSEA AND/OR VOMITING Pantoprazole Sodium 40 mg 05/06/19 22:00 05/14/19 11:39 Protonix Iv IVPUSH 40 mg BID MARYSE Administration ASSESSMENT/PLAN: 64 year old male with PMH of MR, HTN, DM, b/l LE swelling who was BIBEMS for a 1 day h/o Hypotension (70/51), lethargy and tachycardia, found to have free air under the diaphragm s/p omental patch for duodenal perforation POD14. Post-op admission to ICU intubated for HD monitoring. Neuro -sedated on fentanyl 25mcg -per Juan Jose, patient speaks one word sentences and performs some ADLs without assist Pulmonary -Intubated -->s/p tracheostomy(Nicastri, 05/14/19); consented w/ civil rights attorney Mr Vigil -Vent: 500, 14, 6, 35% --> CPAP as tolerated Cardio -Hypotension --likely 2/2 septic shock -off pressors -CVP goal 8-12 GI -Perforated duodenum --possibly 2/2 freq NSAID usage vs H pylori -Transamnitis --likely shocked liver, levels improving daily -S/p Ex-Lap w/ Jack Patch(Perlita, 04/30/19) -NGT placed surgically. per surgery NGT SHOULD NOT BE REMOVED OR MANIPULATED for 2 weeks -per surgery, patient may have TF -wait until ~30d post-op for PEG vs wait ~21d post-op for IR PEG -ASHLEY drain to stay in place per surgery instructions -surgical packing and rik removed; per surgery instruction: irrigate wound with WTD saline and cover with dry dressing daily -40mg protonix BID -Abx regimen: s/p flagyl, fluc, ceftr now all DCd; on meropenem as per ID -tolerating TPN -increased BUN thought to be 2/2 to TPN; protein content changed Renal #DOMENIC --likely 2/2 cardiorenal syndrome - Cr improving 2.7, BUN 106.8 - Nephro([facility]) consult: -lasix PRN -free water w/ TF ID -downtrending WBC since surgery, today 10.8 >CTH(05/06/19): neg acute path >CT A/P(05/06/19): free air along the subhepatic space, likely postsurgical >CT A/P(05/13/19): b/l pleural efusion, unchanged small pneumoperitoneum at RUQ near ASHLEY; no abscess -ceftr and flagyl DCd; recommending for DC central line and new ling placement -s/p new line and 1g vanc with AM vanc level ordered -on daily meropenem now; continues to spike fever despite radha > Venous Duplex BLE(05/13/19): neg DVT Heme # thrombocytopenia, now resolved - plt stable; H&H stable - HIT panel negative FEN -wean off TPN at half rate -replete lytes prn -TF: Osmolite, goal 52ml/h PPX -Protonix BID -SQH TID Dispo -ICU monitoring -discharge to [facility] --pending Visit type - Emergency Visit Emergency Visit: No - New Patient This patient is new to me today: No - Critical Care Critical Care patient: Yes Total Critical Care Time (in minutes): 37 Critical Care Statement: The care of this patient involved high complexity decision making to prevent further life threatening deterioration of the patient 's condition and/or to evaluate & treat vital organ system(s) failure or risk of failure. ATTENDING PHYSICIAN STATEMENT I saw and evaluated the patient. I reviewed the resident's note and discussed the case with the resident. I agree with the resident's findings and plan as documented. SUBJECTIVE: OBJECTIVE: ASSESSMENT AND PLAN:
--- NOTE | 2019-05-14 17:16 | PN ---
Progress Note (short form) - Note Progress Note: events noted, s/p trach today cleared by surgury for tubefeeds remains with lowgrade temp and tachycardia Vital Signs Period Temp Pulse Resp BP Sys/Booth Pulse Ox Last 24 Hr 99.9 F-100.8 F 109-124 13-26 97-142/52-73 100-100 cor-rrr lungs clear abd soft,+ASHLEY-serous drainage incision clean minimal drainage, no purulence ext +edema demarco CBC, BMP 05/14/19 05:25 05/14/19 05:25 Microbiology 05/08/19 05:55 Blood - Peripheral Venous Blood Culture - Preliminary NO GROWTH OBTAINED AFTER 96 HOURS, INCUBATION TO CONTINUE FOR 1 DAYS. 05/08/19 05:50 Blood - Peripheral Venous Blood Culture - Preliminary NO GROWTH OBTAINED AFTER 96 HOURS, INCUBATION TO CONTINUE FOR 1 DAYS. 05/11/19 09:50 Blood - Peripheral Venous Blood Culture - Preliminary NO GROWTH OBTAINED AFTER 24 HOURS, INCUBATION TO CONTINUE FOR 4 DAYS. 05/11/19 09:45 Blood - Peripheral Venous Blood Culture - Preliminary NO GROWTH OBTAINED AFTER 24 HOURS, INCUBATION TO CONTINUE FOR 4 DAYS. 04/30/19 09:00 Blood - Peripheral Venous Blood Culture - Final NO GROWTH AFTER 5 DAYS INCUBATION 04/30/19 09:00 Blood - Peripheral Venous Blood Culture - Final NO GROWTH AFTER 5 DAYS INCUBATION 04/30/19 14:28 Body Fluid - Other Gram Stain - Final 04/30/19 14:28 Body Fluid - Other Body Fluid Culture - Final NO GROWTH OF AEROBIC ORGANISMS AFTER 48 HOURS INCUBATION 04/30/19 14:28 Body Fluid - Other Anaerobic Culture - Final NO ANAEROBES WERE ISOLATED 04/30/19 14:38 Abdomen Gram Stain - Final 04/30/19 12:30 Urine - Urine Clean Catch Urine Culture - Final NO GROWTH OBTAINED cxray no infiltrate a/p s/p trach fevers-repeat blood cultures negative , central line changed- continue meropenem for now -had thrombocytopenia while on zosyn leukocytosis resolving thrombocytopenia resolved POD #14 -remain intubated, remains unresponsive off sedation sepsis secondary to perforated viscus s/p repair of perforated bowel respiratory failure- remains intubated DOMENIC-persistent d/w ICU attending Problem List - Problems (1) Sepsis Code(s): A41.9 - SEPSIS, UNSPECIFIED ORGANISM (2) Bowel perforation Code(s): K63.1 - PERFORATION OF INTESTINE (NONTRAUMATIC) (3) DOMENIC (acute kidney injury) Code(s): N17.9 - ACUTE KIDNEY FAILURE, UNSPECIFIED (4) Shock liver Code(s): K72.00 - ACUTE AND SUBACUTE HEPATIC FAILURE WITHOUT COMA
--- NOTE | 2019-05-14 19:13 | PN ---
Physical Exam: SUBJECTIVE: Patient seen and evaluated at bedside, intubated and mechanically ventilated off sedation but unresponsive besides opening of eyes not following commands. WBC count trending down, off pressors but still spiking fevers. On IV Meropenem. OBJECTIVE: GENERAL: intubated and mechanically ventilated, opens eyes, doesn't follow commands HEAD: Normal with no signs of trauma. EYES: sclera anicteric, conjunctiva clear. No ptosis. ENT: Ears normal, nares patent, moist mucous membranes. s/p trach with clean trach site LUNGS: coarse b/l BS to auscultation bilaterally. HEART: Regular rate and rhythm, S1, S2 without murmur, rub or gallop. ABDOMEN: Soft, non-tender, non-distended, BS+, open abdominal incision without pus or discharge EXTREMITIES: 2+ pulses, warm, well-perfused, nonpitting edema. NEUROLOGICAL: opens eyes does not track does not follow commands SKIN: Warm, dry, normal turgor, no rashes or lesions noted Vital Signs - 24 hr 05/13/19 05/13/19 05/13/19 20:00 20:16 20:55 Temperature 100.1 F H Pulse Rate 114 H Respiratory 16 17 17 Rate Blood Pressure 102/52 L O2 Sat by Pulse 100 Oximetry (%) 05/13/19 05/13/19 05/14/19 22:00 22:53 00:00 Temperature 99.9 F H Pulse Rate 115 H 112 H Respiratory 21 H 21 H 22 H Rate Blood Pressure 113/53 L 116/57 L O2 Sat by Pulse 100 Oximetry (%) 05/14/19 05/14/19 05/14/19 00:34 02:00 04:00 Temperature 100.1 F H Pulse Rate 120 H 112 H Respiratory 15 22 H 13 Rate Blood Pressure 120/66 111/65 O2 Sat by Pulse Oximetry (%) 05/14/19 05/14/19 05/14/19 04:35 06:00 08:00 Temperature 99.9 F H Pulse Rate 124 H 120 H Respiratory 22 H 26 H 16 Rate Blood Pressure 124/62 128/63 O2 Sat by Pulse Oximetry (%) 05/14/19 05/14/19 05/14/19 08:25 09:00 10:00 Temperature Pulse Rate 114 H 112 H Respiratory 18 16 17 Rate Blood Pressure 109/56 L O2 Sat by Pulse 100 100 Oximetry (%) 05/14/19 05/14/19 05/14/19 10:45 11:00 12:00 Temperature Pulse Rate 109 H 111 H 115 H Respiratory 18 16 16 Rate Blood Pressure 125/64 142/73 134/73 O2 Sat by Pulse Oximetry (%) 05/14/19 05/14/19 05/14/19 13:00 14:00 16:00 Temperature Pulse Rate 119 H 111 H 111 H Respiratory 16 16 16 Rate Blood Pressure 109/60 97/54 L 108/66 O2 Sat by Pulse Oximetry (%) 05/14/19 05/14/19 16:15 18:00 Temperature 100.5 F H Pulse Rate 114 H Respiratory 17 16 Rate Blood Pressure 106/56 L O2 Sat by Pulse Oximetry (%) Microbiology 05/11/19 09:50 Blood - Peripheral Venous Blood Culture - Preliminary NO GROWTH OBTAINED AFTER 72 HOURS, INCUBATION TO CONTINUE FOR 2 DAYS. 05/11/19 09:45 Blood - Peripheral Venous Blood Culture - Preliminary NO GROWTH OBTAINED AFTER 72 HOURS, INCUBATION TO CONTINUE FOR 2 DAYS. 05/08/19 05:55 Blood - Peripheral Venous Blood Culture - Final NO GROWTH AFTER 5 DAYS INCUBATION 05/08/19 05:50 Blood - Peripheral Venous Blood Culture - Final NO GROWTH AFTER 5 DAYS INCUBATION 04/30/19 09:00 Blood - Peripheral Venous Blood Culture - Final NO GROWTH AFTER 5 DAYS INCUBATION 04/30/19 09:00 Blood - Peripheral Venous Blood Culture - Final NO GROWTH AFTER 5 DAYS INCUBATION 04/30/19 14:28 Body Fluid - Other Gram Stain - Final 04/30/19 14:28 Body Fluid - Other Body Fluid Culture - Final NO GROWTH OF AEROBIC ORGANISMS AFTER 48 HOURS INCUBATION 04/30/19 14:28 Body Fluid - Other Anaerobic Culture - Final NO ANAEROBES WERE ISOLATED 04/30/19 14:38 Abdomen Gram Stain - Final 04/30/19 12:30 Urine - Urine Clean Catch Urine Culture - Final NO GROWTH OBTAINED Laboratory Results - last 24 hr 05/14/19 05/14/19 05/14/19 05:25 05:25 05:44 WBC 10.8 H RBC 2.76 L Hgb 8.0 L Hct 23.7 L MCV 85.9 MCH 29.1 MCHC 33.8 RDW 15.6 Plt Count 216 MPV 11.4 H Absolute Neuts (auto) 5.6 Neutrophils % 52.1 Lymphocytes % 27.5 Monocytes % 10.3 H Eosinophils % 8.6 H Basophils % 1.5 Nucleated RBC % 0 Sodium 148 H Potassium 4.4 Chloride 116 H Carbon Dioxide 25 Anion Gap 8 BUN 106.8 H* Creatinine 2.7 H Est GFR (CKD-EPI)AfAm 27.62 Est GFR (CKD-EPI)NonAf 23.83 POC Glucometer 193 Random Glucose 213 H Calcium 8.5 Phosphorus 4.1 Magnesium 2.2 Total Bilirubin 1.9 H AST 71 H ALT 61 Alkaline Phosphatase 107 Total Protein 5.2 L Albumin 1.2 L 05/14/19 05/14/19 12:35 17:35 WBC RBC Hgb Hct MCV MCH MCHC RDW Plt Count MPV Absolute Neuts (auto) Neutrophils % Lymphocytes % Monocytes % Eosinophils % Basophils % Nucleated RBC % Sodium Potassium Chloride Carbon Dioxide Anion Gap BUN Creatinine Est GFR (CKD-EPI)AfAm Est GFR (CKD-EPI)NonAf POC Glucometer 215 164 Random Glucose Calcium Phosphorus Magnesium Total Bilirubin AST ALT Alkaline Phosphatase Total Protein Albumin Current Medications Generic Name Dose Route Start Last Admin Trade Name Freq PRN Reason Stop Dose Admin Albuterol/Ipratropium 1 amp 05/12/19 08:08 Duoneb - NEB Q6H PRN SHORTNESS OF BREATH Furosemide 60 mg 05/12/19 10:00 05/14/19 11:39 Lasix Injection - IVPUSH 60 mg DAILY MARYSE Administration Heparin Sodium (Porcine) 5,000 unit 05/02/19 22:00 05/14/19 15:00 Heparin - SQ 5,000 unit TID MARYSE Administration Meropenem 1 gm/ Dextrose 100 mls @ 100 mls/hr 05/12/19 06:00 05/14/19 18:11 IVPB 100 mls/hr Q12H MARYSE Administration Fentanyl 500 mcg/ Dextrose 100 mls @ 10 mls/hr 05/12/19 09:00 05/14/19 06:49 IVPB 75 mcg/hr TITR MARYSE 15 mls/hr Titration Protocol 50 MCG/HR Propofol 1,000,000 mcg in 100 mls @ 2.7 mls/hr 05/14/19 10:00 05/14/19 09:45 Diprivan - IVPB 5 mcg/kg/min TITR MARYSE 2.7 mls/hr Administration Protocol 5 MCG/KG/MIN Fat Emulsion-Soy/MCT/[place]/Fish Oil 250 mls @ 10 mls/hr 05/12/19 22:00 Smoflipid 20% Iv Fat Emulsion IV 05/13/19 21:59 DAILY@2200 [facility] Insulin Aspart 1 vial 05/01/19 07:00 05/14/19 18:10 Novolog Vial Sliding Scale - SQ 2 units TIDAC MARYSE Administration Protocol Ondansetron HCl 4 mg 04/30/19 16:45 Zofran Injection IVPUSH Q6H PRN NAUSEA AND/OR VOMITING Pantoprazole Sodium 40 mg 05/06/19 22:00 05/14/19 11:39 Protonix Iv IVPUSH 40 mg BID MARYSE Administration A/P: 64 M h/o MR, HTN, DM, b/l LE swelling who was BIBEMS for a 1 day h/o Hypotension , lethargy and tachycardia. Admitted for perforated duodenal ulcer requiring ex- lap. S/p trach for prolonged intubation course. Perforated duodenal ulcer s/p exlap POD # 11 thrombocytopenic with Zosyn, now on IV Meropenem WBC count improving but still spiking fevers ?consider DVT study UE/LE follow cultures Septic shock off pressors d/t perforated ulcer cont. IV hydration, abx, TPN Surgery consult: Dr Bhat HTN hold meds T2DM insulin drip as needed to maintain F/S 140-180 DVT ppx: Lovenox SC GI ppx: PPI Cont. ICU monitoring Visit type - Emergency Visit Emergency Visit: Yes ED Registration Date: 04/30/19 Care time: The patient presented to the Emergency Department on the above date and was hospitalized for further evaluation of their emergent condition. - New Patient This patient is new to me today: No - Critical Care Critical Care patient: Yes Total Critical Care Time (in minutes): 35 Critical Care Statement: The care of this patient involved high complexity decision making to prevent further life threatening deterioration of the patient 's condition and/or to evaluate & treat vital organ system(s) failure or risk of failure. - Discharge Referral Referred to [facility] Med P.C.: No
[2019-05-14] MEDS: FENTANYL INJECTION 500 MCG in DEXTROSE 5%-WATER - 90 ML IVPB SCH (21:59)
[2019-05-15] MEDS ORDERED: MEROPENEM 1 GM VIAL (RESTRICTED TO ID) IVPB ONE (05:40)
[2019-05-15] MEDS ORDERED: DEXTROSE 5%-WATER 100 ML IVPB ONE (05:41)
[2019-05-15] MEDS: MEROPENEM 1 GM in DEXTROSE 5%-WATER 100 ML IVPB SCH ×2 (05:53→18:30)
[2019-05-15] MEDS: HEPARIN NA (PORCINE) 5,000 UNITS/ML 1ML VIAL SQ SCH ×3 (05:53→21:55)
[2019-05-15] MEDS: INSULIN SLIDING SCALE (NOVOLOG) 1 VIAL SQ SCH ×3 (06:05→17:56)
[2019-05-15 06:33] LABS: HEMATOCRIT 23.8 % (35.4-49); HEMOGLOBIN 7.9 GM/dL (11.7-16.9); MCH 29.2 pg (25.7-33.7); MCHC 33.3 g/dl (32.0-35.9); MEAN CELL VOLUME 87.7 fl (80-96); MEAN PLT VOLUME 11.1 fl (7.5-11.1); PLATELET COUNT 189 K/MM3 (134-434); RBC 2.71 M/mm3 (4.00-5.60); RDW 17.3 % (11.9-15.9); WHITE BLOOD COUNT 7.7 K/mm3 (4.0-10.0)
[2019-05-15] MEDS ORDERED: fentaNYL CITRATE 250 MCG/5 ML VIAL ONE ×2 (07:00→21:48)
[2019-05-15 07:37] LABS: ALBUMIN 1.2 g/dl (3.4-5.0); BILIRUBIN,TOTAL 3.1 mg/dL (0.2-1); CALCIUM 8.9 mg/dL (8.5-10.1); CREATININE 2.6 mg/dL (0.55-1.3); MAGNESIUM 2.4 mg/dL (1.8-2.4); PHOSPHOROUS 5.5 mg/dL (2.5-4.9); TOT PROT 5.4 g/dl (6.4-8.2)
[2019-05-15 07:48] LABS: BLOOD UREA NITROGEN 111.4 mg/dL (7-18)
--- NOTE | 2019-05-15 08:59 | PN ---
Progress Note (short form) - Note Progress Note: chills this am, s/p trach yesterday on tubefeeds remains with lowgrade temp and tachycardia Vital Signs Period Temp Pulse Resp BP Sys/Booth Pulse Ox Last 24 Hr 98.9 F-101.5 F 84-125 14-24 96-142/50-73 100-100 gown is soaked on the right side of abdomen trach to vent cor-rrr lungs decreased bs at bases abd soft, +Ashley with tube feeds ext +edema +scrotal edema +demarco +central line CBC, BMP 05/15/19 06:00 05/15/19 06:00 Microbiology 05/11/19 09:50 Blood - Peripheral Venous Blood Culture - Preliminary NO GROWTH OBTAINED AFTER 72 HOURS, INCUBATION TO CONTINUE FOR 2 DAYS. 05/11/19 09:45 Blood - Peripheral Venous Blood Culture - Preliminary NO GROWTH OBTAINED AFTER 72 HOURS, INCUBATION TO CONTINUE FOR 2 DAYS. 05/08/19 05:55 Blood - Peripheral Venous Blood Culture - Final NO GROWTH AFTER 5 DAYS INCUBATION 05/08/19 05:50 Blood - Peripheral Venous Blood Culture - Final NO GROWTH AFTER 5 DAYS INCUBATION 04/30/19 09:00 Blood - Peripheral Venous Blood Culture - Final NO GROWTH AFTER 5 DAYS INCUBATION 04/30/19 09:00 Blood - Peripheral Venous Blood Culture - Final NO GROWTH AFTER 5 DAYS INCUBATION 04/30/19 14:28 Body Fluid - Other Gram Stain - Final 04/30/19 14:28 Body Fluid - Other Body Fluid Culture - Final NO GROWTH OF AEROBIC ORGANISMS AFTER 48 HOURS INCUBATION 04/30/19 14:28 Body Fluid - Other Anaerobic Culture - Final NO ANAEROBES WERE ISOLATED 04/30/19 14:38 Abdomen Gram Stain - Final 04/30/19 12:30 Urine - Urine Clean Catch Urine Culture - Final NO GROWTH OBTAINED cxray bibasilar changes a/p +anastomatic Leak- tube feeds in ASHLEY -d/c tube feeds, contact surgery s/p trach fevers-r continue meropenem for now -had thrombocytopenia while on zosyn POD #15 -remain intubated, remains unresponsive off sedation sepsis secondary to perforated viscus respiratory failure- remains intubated , pod #1 s/p trach DOMENIC-persistent d/w ICU resident, d/w ICU attending they will contact surgery Problem List - Problems (1) Sepsis Code(s): A41.9 - SEPSIS, UNSPECIFIED ORGANISM (2) Bowel perforation Code(s): K63.1 - PERFORATION OF INTESTINE (NONTRAUMATIC) (3) DOMENIC (acute kidney injury) Code(s): N17.9 - ACUTE KIDNEY FAILURE, UNSPECIFIED (4) Shock liver Code(s): K72.00 - ACUTE AND SUBACUTE HEPATIC FAILURE WITHOUT COMA
[2019-05-15] MEDS: FENTANYL INJECTION 500 MCG in DEXTROSE 5%-WATER - 90 ML IVPB SCH ×3 (10:00→21:59)
[2019-05-15] MEDS: PROPOFOL 1,000,000 MCG/100 ML VIAL IVPB SCH (10:02)
[2019-05-15] MEDS: PANTOPRAZOLE SODIUM 40 MG VIAL IVPUSH SCH ×2 (10:02→21:55)
[2019-05-15] MEDS: FUROSEMIDE 40 MG/4 ML INJECTABLE VIAL IVPUSH SCH (10:02)
--- NOTE | 2019-05-15 11:03 | PN ---
Teaching Attending Note Name of Resident: Oskar Saha ATTENDING PHYSICIAN STATEMENT I saw and evaluated the patient. I reviewed the resident's note and discussed the case with the resident. I agree with the resident's findings and plan as documented. Intake & Output 05/12/19 05/13/19 05/14/19 05/15/19 23:59 23:59 23:59 23:59 Intake Total 3102.1 2257.4 1286 880 Output Total 1280 1070 1930 400 Balance 1822.1 1187.4 -644 480 Weight 194 lb 3.636 oz 201 lb 1.6 oz 198 lb 6.4 oz 200 lb 9.6 oz Last Vital Signs Temp Pulse Resp BP Pulse Ox 99.8 F H 105 H 22 H 109/62 100 05/15/19 09:27 05/15/19 09:27 05/15/19 09:27 05/15/19 08:00 05/14/19 19:58 Active Medications Albuterol/Ipratropium (Duoneb -) 1 amp NEB Q6H PRN PRN Reason: SHORTNESS OF BREATH Furosemide (Lasix Injection -) 60 mg IVPUSH DAILY [facility] Last Admin: 05/15/19 10:02 Dose: 60 mg Heparin Sodium (Porcine) (Heparin -) 5,000 unit SQ TID MARYSE Last Admin: 05/15/19 05:53 Dose: 5,000 unit Meropenem 1 gm/ Dextrose 100 mls @ 100 mls/hr IVPB Q12H MARYSE Last Admin: 05/15/19 05:53 Dose: 100 mls/hr Fentanyl 500 mcg/ Dextrose 100 mls @ 10 mls/hr IVPB TITR MARYSE; Protocol Last Admin: 05/15/19 10:00 Dose: 50 mcg/hr, 10 mls/hr Propofol (Diprivan -) 1,000,000 mcg in 100 mls @ 2.7 mls/hr IVPB TITR [facility]; Protocol Last Admin: 05/15/19 10:02 Dose: Not Given Fat Emulsion-Soy/MCT/[place]/Fish Oil (Smoflipid 20% Iv Fat Emulsion) 250 mls @ 10 mls/hr IV DAILY@2200 MARYSE Stop: 05/13/19 21:59 Insulin Aspart (Novolog Vial Sliding Scale -) 1 vial SQ TIDAC MARYSE; Protocol Last Admin: 05/15/19 06:05 Dose: 4 units Ondansetron HCl (Zofran Injection) 4 mg IVPUSH Q6H PRN PRN Reason: NAUSEA AND/OR VOMITING Pantoprazole Sodium (Protonix Iv) 40 mg IVPUSH BID MARYSE Last Admin: 05/15/19 10:02 Dose: 40 mg SUBJECTIVE: Patient seen and examined in the ICU. S/P Trach without incident. Eneteral feeds noted from ASHLEY drain. No pressors. Gen: Trached, eyes open, NAD Heart: RRR Lung: scattered rhonchi Abd:soft, +ASHLEY with enteral feeds noted Ext: + edema Laboratory Results - last 24 hr 05/14/19 05/14/19 05/14/19 12:35 17:35 21:47 WBC RBC Hgb Hct MCV MCH MCHC RDW Plt Count MPV Sodium Potassium Chloride Carbon Dioxide Anion Gap BUN Creatinine Est GFR (CKD-EPI)AfAm Est GFR (CKD-EPI)NonAf POC Glucometer 215 164 180 Random Glucose Calcium Phosphorus Magnesium Total Bilirubin AST ALT Alkaline Phosphatase Total Protein Albumin 05/15/19 05/15/19 05/15/19 05:59 06:00 06:00 WBC 7.7 RBC 2.71 L Hgb 7.9 L Hct 23.8 L MCV 87.7 MCH 29.2 MCHC 33.3 RDW 17.3 H Plt Count 189 MPV 11.1 Sodium 146 H Potassium 5.0 Chloride 115 H Carbon Dioxide 27 Anion Gap 5 L BUN 111.4 H* Creatinine 2.6 H Est GFR (CKD-EPI)AfAm 28.91 Est GFR (CKD-EPI)NonAf 24.94 POC Glucometer 248 Random Glucose 279 H Calcium 8.9 Phosphorus 5.5 H Magnesium 2.4 Total Bilirubin 3.1 H AST 82 H ALT 56 Alkaline Phosphatase 106 Total Protein 5.4 L Albumin 1.2 L 05/15/19 10:35 WBC RBC Hgb Hct MCV MCH MCHC RDW Plt Count MPV Sodium Potassium Chloride Carbon Dioxide Anion Gap BUN Creatinine Est GFR (CKD-EPI)AfAm Est GFR (CKD-EPI)NonAf POC Glucometer 191 Random Glucose Calcium Phosphorus Magnesium Total Bilirubin AST ALT Alkaline Phosphatase Total Protein Albumin ASSESSMENT AND PLAN: Acute Hypoxic Respiratory Failure: S/P Trach due to failure to wean Perforated Duodenal Ulcer s/p Ex-lap/Jack Patch Repair Peritonitis Septic Shock Acute Kidney Injury Elevated LFTs likely Ischemic Injury Hyponatremia Volume Overload Anemia Thrombocytopenia Mental Retardation HTN DM - Stop enteral feeds: D/W surgical attending: no indication for return to OR. Restart TPN. If worsens: imaging to R/O collection. - continue antibiotics, antifungals per ID - monitor drain output - monitor urine output, creatinine - monitor CBC - protonix - monitor WBC trend - continue TPN - DVT/GI prophylaxis - prognosis guarded - Lasix - LTAC evaluation Dr Desai OBJECTIVE: ASSESSMENT AND PLAN:
--- NOTE | 2019-05-15 11:28 | PN ---
Progress Note, Physician History of Present Illness: Pt seen and examined at bedside. He remains in the ICU. He did not tolerate tube feeds. - Current Medication List Current Medications: Active Medications Albuterol/Ipratropium (Duoneb -) 1 amp NEB Q6H PRN PRN Reason: SHORTNESS OF BREATH Furosemide (Lasix Injection -) 60 mg IVPUSH DAILY [facility] Last Admin: 05/15/19 10:02 Dose: 60 mg Heparin Sodium (Porcine) (Heparin -) 5,000 unit SQ TID MARYSE Last Admin: 05/15/19 05:53 Dose: 5,000 unit Meropenem 1 gm/ Dextrose 100 mls @ 100 mls/hr IVPB Q12H MARYSE Last Admin: 05/15/19 05:53 Dose: 100 mls/hr Fentanyl 500 mcg/ Dextrose 100 mls @ 10 mls/hr IVPB TITR [facility]; Protocol Last Admin: 05/15/19 10:00 Dose: 50 mcg/hr, 10 mls/hr Propofol (Diprivan -) 1,000,000 mcg in 100 mls @ 2.7 mls/hr IVPB TITR [facility]; Protocol Last Admin: 05/15/19 10:02 Dose: Not Given Fat Emulsion-Soy/MCT/[place]/Fish Oil (Smoflipid 20% Iv Fat Emulsion) 250 mls @ 10 mls/hr IV DAILY@2200 [facility] Stop: 05/13/19 21:59 Insulin Aspart (Novolog Vial Sliding Scale -) 1 vial SQ TIDAC [facility]; Protocol Last Admin: 05/15/19 11:21 Dose: 2 units Ondansetron HCl (Zofran Injection) 4 mg IVPUSH Q6H PRN PRN Reason: NAUSEA AND/OR VOMITING Pantoprazole Sodium (Protonix Iv) 40 mg IVPUSH BID [facility] Last Admin: 05/15/19 10:02 Dose: 40 mg - Objective Vital Signs: Vital Signs Temperature 99.8 F H 05/15/19 09:27 Pulse Rate 105 H 05/15/19 09:27 Respiratory Rate 22 H 05/15/19 09:27 Blood Pressure 109/62 05/15/19 08:00 O2 Sat by Pulse Oximetry (%) 100 05/14/19 19:58 Constitutional: Yes: Calm Eyes: Yes: Conjunctiva Clear Neck: Yes: Other (trache) Cardiovascular: Yes: S1, S2 Respiratory: Yes: Mechanically Ventilated Gastrointestinal: Yes: Soft, Other (lex drain) Genitourinary: Yes: Banuelos Present Musculoskeletal: Yes: Muscle Weakness Edema: No Neurological: Yes: Lethargy Labs: CBC, BMP 05/15/19 06:00 05/15/19 06:00 INR, PTT INR 1.36 (0.83-1.09) H 05/05/19 05:00 Fibrinogen 443.0 mg/dL (238-498) 05/05/19 05:00 - ....Imaging Chest X-ray: Report Reviewed Assessment/Plan Current Medications Generic Name Dose Route Start Last Admin Trade Name Freq PRN Reason Stop Dose Admin Albuterol/Ipratropium 1 amp 05/12/19 08:08 Duoneb - NEB Q6H PRN SHORTNESS OF BREATH Furosemide 60 mg 05/12/19 10:00 05/15/19 10:02 Lasix Injection - IVPUSH 60 mg DAILY MARYSE Administration Heparin Sodium (Porcine) 5,000 unit 05/02/19 22:00 05/15/19 05:53 Heparin - SQ 5,000 unit TID MARYSE Administration Meropenem 1 gm/ Dextrose 100 mls @ 100 mls/hr 05/12/19 06:00 05/15/19 05:53 IVPB 100 mls/hr Q12H MARYSE Administration Fentanyl 500 mcg/ Dextrose 100 mls @ 10 mls/hr 05/12/19 09:00 05/15/19 10:00 IVPB 50 mcg/hr TITR MARYSE 10 mls/hr Administration Protocol 50 MCG/HR Propofol 1,000,000 mcg in 100 mls @ 2.7 mls/hr 05/14/19 10:00 05/15/19 10:02 Diprivan - IVPB Not Given TITR MARYSE Protocol 5 MCG/KG/MIN Fat Emulsion-Soy/MCT/[place]/Fish Oil 250 mls @ 10 mls/hr 05/12/19 22:00 Smoflipid 20% Iv Fat Emulsion IV 05/13/19 21:59 DAILY@2200 [facility] Insulin Aspart 1 vial 05/01/19 07:00 05/15/19 11:21 Novolog Vial Sliding Scale - SQ 2 units TIDAC MARYSE Administration Protocol Ondansetron HCl 4 mg 04/30/19 16:45 Zofran Injection IVPUSH Q6H PRN NAUSEA AND/OR VOMITING Pantoprazole Sodium 40 mg 05/06/19 22:00 05/15/19 10:02 Protonix Iv IVPUSH 40 mg BID MARYSE Administration IMPRESSION DOMENIC septic shock perforated duodenal ulcer fluid overload MR DM possible ckd transamitis hyperkalemia hyponatremia PLAN - can restart tpn - tube feeds stopped - monitor sodium - renal function improving - lasix as needed - vent support
--- NOTE | 2019-05-15 15:00 | PN ---
Progress Note (short form) - Note Progress Note: surgery pt seen and examined. trach was placed. pt started on ngt feeds and had a fever and was noted to have feeds in lex. ct repeated without significant collection noted and no real changes from previous. abd- soft, nd, wound clean without granulation, lex serous with feeds. Plan- Pod #15 (Wed)- feeds in lex confirms leak at repair site. This is likely from malnutrition and initial septic shock. feeds held. cont tpn. resume ngt to suction. in 2 weeks will need to repeat ct with oral contrast to evaluate if leak closed. cannot reoperate at this time 2 weeks out from surgery as this would be a hostile abd. leak must be small as minimal output in lex. if pt continues to have fevers would rescan in 5 days to look again for drainable collection. wbc normal. no evidence of gastric outlet obstruction. cont ngt indefinitely. protonix tid. wound should be irrigated daily with saline and dry dressing until closed. rik removed.
--- NOTE | 2019-05-15 15:40 | PN ---
<Oskar Saha - Last Filed: 05/15/19 15:40> Physical Exam: SUBJECTIVE: Patient seen and examined O/N: Cloudy pale fluid in ASHLEY drain, persistent tachy and fever 101.5 OBJECTIVE: Vital Signs Period Temp Pulse Resp BP Sys/Booth Pulse Ox Last 24 Hr 98.9 F-101.5 F 84-125 14-29 89-123/50-70 99-100 GENERAL: tracheostomy ventilated, sedated HEAD: Normal with no signs of trauma. EYES: sclera anicteric, conjunctiva clear. No ptosis. ENT: Ears normal, nares patent, moist mucous membranes. NGT ~60cm at nares NECK: Trachea midline, full range of motion, supple. LUNGS: coarse b/l BS to auscultation bilaterally. Vent 500, 14, 5, 35% HEART: tachycardic and regular rhythm, S1, S2 without murmur, rub or gallop. ABDOMEN: Soft, nontender, nondistended, hypoactive bowel sounds, surgical dressings overlying mid abd without purulence or signs of infection. ASHLEY with white cloudy drainage, midline surgical wound with WTD dressing in place : mild scrotum edema EXTREMITIES: 2+ pulses, warm, well-perfused, improving peripheral edema. NEUROLOGICAL: unresponsive, does not follow commands, does not open eyes; withdrawing to painful stimuli; on Fentanyl gtt SKIN: Warm, dry, normal turgor, no rashes or lesions noted, edema Laboratory Results - last 24 hr 05/14/19 05/14/19 05/15/19 17:35 21:47 05:59 WBC RBC Hgb Hct MCV MCH MCHC RDW Plt Count MPV Sodium Potassium Chloride Carbon Dioxide Anion Gap BUN Creatinine Est GFR (CKD-EPI)AfAm Est GFR (CKD-EPI)NonAf POC Glucometer 164 180 248 Random Glucose Calcium Phosphorus Magnesium Total Bilirubin AST ALT Alkaline Phosphatase Total Protein Albumin 05/15/19 05/15/19 05/15/19 06:00 06:00 10:35 WBC 7.7 RBC 2.71 L Hgb 7.9 L Hct 23.8 L MCV 87.7 MCH 29.2 MCHC 33.3 RDW 17.3 H Plt Count 189 MPV 11.1 Sodium 146 H Potassium 5.0 Chloride 115 H Carbon Dioxide 27 Anion Gap 5 L BUN 111.4 H* Creatinine 2.6 H Est GFR (CKD-EPI)AfAm 28.91 Est GFR (CKD-EPI)NonAf 24.94 POC Glucometer 191 Random Glucose 279 H Calcium 8.9 Phosphorus 5.5 H Magnesium 2.4 Total Bilirubin 3.1 H AST 82 H ALT 56 Alkaline Phosphatase 106 Total Protein 5.4 L Albumin 1.2 L Active Medications Generic Name Dose Route Start Last Admin Trade Name Freq PRN Reason Stop Dose Admin Albuterol/Ipratropium 1 amp 05/12/19 08:08 Duoneb - NEB Q6H PRN SHORTNESS OF BREATH Furosemide 60 mg 05/12/19 10:00 05/15/19 10:02 Lasix Injection - IVPUSH 60 mg DAILY MARYSE Administration Heparin Sodium (Porcine) 5,000 unit 05/02/19 22:00 05/15/19 14:08 Heparin - SQ 5,000 unit TID MARYSE Administration Meropenem 1 gm/ Dextrose 100 mls @ 100 mls/hr 05/12/19 06:00 05/15/19 05:53 IVPB 100 mls/hr Q12H MARYSE Administration Fentanyl 500 mcg/ Dextrose 100 mls @ 10 mls/hr 05/12/19 09:00 05/15/19 10:00 IVPB 50 mcg/hr TITR MARYSE 10 mls/hr Administration Protocol 50 MCG/HR Propofol 1,000,000 mcg in 100 mls @ 2.7 mls/hr 05/14/19 10:00 05/15/19 10:02 Diprivan - IVPB Not Given TITR MARYSE Protocol 5 MCG/KG/MIN Fat Emulsion-Soy/MCT/[place]/Fish Oil 250 mls @ 20.833 mls/hr 05/15/19 22:00 Smoflipid 20% Iv Fat Emulsion IV DAILY@2200 COUNTS INCLUDE 234 BEDS AT THE [facility] Insulin Human Regular 80 units 1,200 mls @ 50 mls/hr 05/15/19 16:00 / Folic Acid 1 mg/ IV Multivitamins/Minerals 10 ml/ DAILY@1600 COUNTS INCLUDE 234 BEDS AT THE [facility] Thiamine HCl 100 mg/ Chromium/ Copper/Manganese/Zinc 1 ml/ Sterile Water/ Amino Acids/ Dextrose Insulin Aspart 1 vial 05/01/19 07:00 05/15/19 11:21 Novolog Vial Sliding Scale - SQ 2 units TIDAC COUNTS INCLUDE 234 BEDS AT THE [facility] Administration Protocol Ondansetron HCl 4 mg 04/30/19 16:45 Zofran Injection IVPUSH Q6H PRN NAUSEA AND/OR VOMITING Pantoprazole Sodium 40 mg 05/06/19 22:00 05/15/19 10:02 Protonix Iv IVPUSH 40 mg BID MARYSE Administration ASSESSMENT/PLAN: 64 year old male with PMH of MR, HTN, DM, b/l LE swelling who was BIBEMS for a 1 day h/o Hypotension (70/51), lethargy and tachycardia, found to have free air under the diaphragm s/p omental patch for duodenal perforation POD14. Post-op admission to ICU intubated for HD monitoring. Neuro # Uremia -minimally interactive --possibly 2/2 developmental delay vs uremia vs sedation -sedated on fentanyl 25mcg -per Juan Jose, patient speaks one word sentences and performs some ADLs without assist Pulmonary -Intubated -->s/p tracheostomy(Debby, 05/14/19); consented w/ privacy attorney Mr Vigil -Vent: 500, 14, 6, 35% --> CPAP as tolerated Cardio #Hypotension --likely 2/2 septic shock ---resolving -off pressors -CVP goal 8-12 GI # Perforated duodenum --possibly 2/2 freq NSAID usage vs H pylori # Jack Patch leakage --monitor ASHLEY drain outpt # Transamnitis --likely shocked liver, levels elevated and stable > CT A/P(05/15/19): -S/p Ex-Lap w/ Jack Patch(Perlita, 04/30/19) -NGT placed surgically. per surgery NGT SHOULD NOT BE REMOVED OR MANIPULATED for 2 weeks -per surgery no TF as there is a possible leakage of Jack Patch -ASHLEY drain to stay in place per surgery instructions -surgical packing and rik removed; per surgery instruction: irrigate wound with WTD saline and cover with dry dressing daily -repeat CT A/P w/ PO contrast at ~06/03/19 to reevaluate for leak -repeat CT A/P in 5d if fevers persist -40mg protonix BID -Abx regimen: s/p flagyl, fluc, ceftr now all DCd; on meropenem as per ID -restarted TPN(05/15/19) Renal #DOMENIC --likely 2/2 cardiorenal syndrome - Cr improving 2.6, BUN 111.4 - Nephro([facility]) consult: -lasix 60mg QD ID -downtrending WBC since surgery, today 10.8 >CTH(05/06/19): neg acute path >CT A/P(05/06/19): free air along the subhepatic space, likely postsurgical >CT A/P(05/13/19): b/l pleural efusion, unchanged small pneumoperitoneum at RUQ near ASHLEY; no abscess -s/p new line and 1g vanc with AM vanc level ordered -on daily meropenem now; continues to spike fever despite radha > Venous Duplex BLE(05/13/19): neg DVT Heme # thrombocytopenia, now resolved - plt stable; H&H stable > HIT panel: negative FEN -TPN -replete lytes prn -NPO until a rpt CT(~06/03/19) shows no anastomotic leak PPX -Protonix BID -SQH TID Dispo -ICU monitoring -discharge to LTACH --pending Visit type - Emergency Visit Emergency Visit: No - New Patient This patient is new to me today: No - Critical Care Critical Care patient: Yes Total Critical Care Time (in minutes): 36 Critical Care Statement: The care of this patient involved high complexity decision making to prevent further life threatening deterioration of the patient 's condition and/or to evaluate & treat vital organ system(s) failure or risk of failure. ATTENDING PHYSICIAN STATEMENT I saw and evaluated the patient. I reviewed the resident's note and discussed the case with the resident. I agree with the resident's findings and plan as documented. SUBJECTIVE: OBJECTIVE: ASSESSMENT AND PLAN: <Verenice Fernández - Last Filed: 05/16/19 17:37> Physical Exam: SUBJECTIVE: Patient seen and examined OBJECTIVE: Vital Signs Period Temp Pulse Resp BP Sys/Booth Pulse Ox Last 24 Hr 99.1 F-102.9 F 97-140 11-24 90-158/56-98 99-100 GENERAL: The patient is awake, alert, and fully oriented, in no acute distress. HEAD: Normal with no signs of trauma. EYES: PERRL, extraocular movements intact, sclera anicteric, conjunctiva clear. No ptosis. ENT: Ears normal, nares patent, oropharynx clear without exudates, moist mucous membranes. NECK: Trachea midline, full range of motion, supple. LUNGS: Breath sounds equal, clear to auscultation bilaterally, no wheezes, no crackles, no accessory muscle use. HEART: Regular rate and rhythm, S1, S2 without murmur, rub or gallop. ABDOMEN: Soft, nontender, nondistended, normoactive bowel sounds, no guarding, no rebound, no hepatosplenomegaly, no masses. EXTREMITIES: 2+ pulses, warm, well-perfused, no edema. NEUROLOGICAL: Cranial nerves II through XII grossly intact. Normal speech, gait not observed. PSYCH: Normal mood, normal affect. SKIN: Warm, dry, normal turgor, no rashes or lesions noted Laboratory Results - last 24 hr 05/15/19 05/15/19 05/16/19 17:40 21:05 05:30 WBC 7.8 RBC 2.37 L Hgb 7.0 L Hct 20.8 L MCV 88.0 MCH 29.7 MCHC 33.8 RDW 17.9 H Plt Count 154 MPV 11.4 H Sodium Potassium Chloride Carbon Dioxide Anion Gap BUN Creatinine Est GFR (CKD-EPI)AfAm Est GFR (CKD-EPI)NonAf POC Glucometer 218 185 Random Glucose Calcium Phosphorus Magnesium Total Bilirubin AST ALT Alkaline Phosphatase Total Protein Albumin 05/16/19 05/16/19 05/16/19 05:30 06:01 11:09 WBC RBC Hgb Hct MCV MCH MCHC RDW Plt Count MPV Sodium 149 H Potassium 4.3 Chloride 117 H Carbon Dioxide 27 Anion Gap 5 L BUN 109.2 H* Creatinine 2.6 H Est GFR (CKD-EPI)AfAm 28.91 Est GFR (CKD-EPI)NonAf 24.94 POC Glucometer 126 151 Random Glucose 136 H Calcium 8.5 Phosphorus 5.0 H Magnesium 2.3 Total Bilirubin 2.0 H AST 85 H ALT 54 Alkaline Phosphatase 87 Total Protein 5.1 L Albumin 1.1 L 05/16/19 17:18 WBC RBC Hgb Hct MCV MCH MCHC RDW Plt Count MPV Sodium Potassium Chloride Carbon Dioxide Anion Gap BUN Creatinine Est GFR (CKD-EPI)AfAm Est GFR (CKD-EPI)NonAf POC Glucometer 173 Random Glucose Calcium Phosphorus Magnesium Total Bilirubin AST ALT Alkaline Phosphatase Total Protein Albumin Active Medications Generic Name Dose Route Start Last Admin Trade Name Freq PRN Reason Stop Dose Admin Acetaminophen 1,000 mg 05/15/19 21:58 05/15/19 22:39 Ofirmev Injection - IVPB 1,000 mg Q6H PRN Administration FEVER Albuterol/Ipratropium 1 amp 05/12/19 08:08 Duoneb - NEB Q6H PRN SHORTNESS OF BREATH Furosemide 60 mg 05/12/19 10:00 05/16/19 09:18 Lasix Injection - IVPUSH 60 mg DAILY MARYSE Administration Heparin Sodium (Porcine) 5,000 unit 05/02/19 22:00 05/16/19 15:14 Heparin - SQ 5,000 unit TID MARYSE Administration Meropenem 1 gm/ Dextrose 100 mls @ 100 mls/hr 05/12/19 06:00 05/16/19 06:12 IVPB 100 mls/hr Q12H MARYSE Administration Fentanyl 500 mcg/ Dextrose 100 mls @ 10 mls/hr 05/12/19 09:00 05/16/19 08:05 IVPB 50 mcg/hr TITR MARYSE 10 mls/hr Administration Protocol 50 MCG/HR Dextrose 500 mls @ 50 mls/hr 05/16/19 09:52 05/16/19 10:45 D5w - IV 05/16/19 19:51 50 mls/hr ONCE ONE Administration Insulin Human Regular 70 units 1,500 mls @ 62.5 mls/hr 05/16/19 16:00 16:02 / Folic Acid 1 mg/ IV 62.5 mls/hr Multivitamins/Minerals 10 ml/ DAILY@1600 MARYSE Administration Thiamine HCl 100 mg/ Sterile Water/ Amino Acids/ Dextrose Pantoprazole Sodium 80 mg/ 100 mls @ 10 mls/hr 05/16/19 15:45 05/16/19 15:45 Sodium Chloride IVPB 05/19/19 15:37 10 mls/hr Q10H MARYSE Administration 8 MG/HR Insulin Aspart 1 vial 05/01/19 07:00 05/16/19 11:44 Novolog Vial Sliding Scale - SQ 2 units TIDAC MARYSE Administration Protocol Ondansetron HCl 4 mg 04/30/19 16:45 Zofran Injection IVPUSH Q6H PRN NAUSEA AND/OR VOMITING ASSESSMENT/PLAN: Seen and examined. Please see resident note for further historical information. I personally verified all the phelan historical formation and exam findings. Personally in pretted imaging and diagnostics and reviewed appropriate results. I reviewed all labs and vital signs are per the resident note and EMR as documented. I agree with the above assessment and plan unless supplemented by myself and the following. ATTENDING PHYSICIAN STATEMENT I saw and evaluated the patient. I reviewed the resident's note and discussed the case with the resident. I agree with the resident's findings and plan as documented. SUBJECTIVE: OBJECTIVE: ASSESSMENT AND PLAN:
[2019-05-15] MEDS ORDERED: [UNRECOGNIZED DRUG - OTHER] IV SCH (16:00)
[2019-05-15] MEDS ORDERED: FOLIC ACID IV SCH (16:00)
[2019-05-15] MEDS ORDERED: INSULIN REGULAR IV SCH (16:00)
[2019-05-15] MEDS ORDERED: MULTIVIT IV SCH (16:00)
[2019-05-15] MEDS ORDERED: PT OWN MED DRAWER 7, Y5N ONE ×2 (16:21→17:36)
[2019-05-15] MEDS ORDERED: ACETAMINOPHEN 1000 MG/100 ML VIAL (NON FORMULARY) IVPB ONE (21:57)
[2019-05-15] MEDS ORDERED: FAT EMUL/SOY/MCT/OLIV/FISH OIL 250 ML IV SCH (22:00)
[2019-05-15] MEDS: ACETAMINOPHEN 1000 MG/100 ML VIAL (NON FORMULARY) IVPB PRN (22:39)
[2019-05-16] MEDS ORDERED: MEROPENEM 1 GM VIAL (RESTRICTED TO ID) IVPB ONE ×2 (05:25→17:29)
[2019-05-16] MEDS ORDERED: DEXTROSE 5%-WATER 100 ML IVPB ONE ×2 (05:25→17:30)
[2019-05-16] MEDS: MEROPENEM 1 GM in DEXTROSE 5%-WATER 100 ML IVPB SCH ×2 (06:12→17:38)
[2019-05-16] MEDS: HEPARIN NA (PORCINE) 5,000 UNITS/ML 1ML VIAL SQ SCH ×3 (06:13→21:48)
[2019-05-16] MEDS: INSULIN SLIDING SCALE (NOVOLOG) 1 VIAL SQ SCH ×3 (06:15→17:38)
[2019-05-16 06:47] LABS: HEMATOCRIT 20.8 % (35.4-49); MCH 29.7 pg (25.7-33.7); MCHC 33.8 g/dl (32.0-35.9); MEAN PLT VOLUME 11.4 fl (7.5-11.1); PLATELET COUNT 154 K/MM3 (134-434); RBC 2.37 M/mm3 (4.00-5.60); RDW 17.9 % (11.9-15.9); WHITE BLOOD COUNT 7.8 K/mm3 (4.0-10.0)
[2019-05-16 07:15] LABS: ALBUMIN 1.1 g/dl (3.4-5.0); CALCIUM 8.5 mg/dL (8.5-10.1); CREATININE 2.6 mg/dL (0.55-1.3); MAGNESIUM 2.3 mg/dL (1.8-2.4); POTASSIUM 4.3 mmol/L (3.5-5.1); TOT PROT 5.1 g/dl (6.4-8.2)
[2019-05-16 07:21] LABS: BLOOD UREA NITROGEN 109.2 mg/dL (7-18)
[2019-05-16] MEDS ORDERED: fentaNYL CITRATE 250 MCG/5 ML VIAL ONE ×2 (08:04→19:46)
[2019-05-16] MEDS: FENTANYL INJECTION 500 MCG in DEXTROSE 5%-WATER - 90 ML IVPB SCH ×2 (08:05→20:30)
[2019-05-16] MEDS: PANTOPRAZOLE SODIUM 40 MG VIAL IVPUSH SCH (09:18)
[2019-05-16] MEDS: FUROSEMIDE 40 MG/4 ML INJECTABLE VIAL IVPUSH SCH (09:18)
[2019-05-16] MEDS ORDERED: DEXTROSE 5%-WATER - 500 ML IV ONE (09:52)
[2019-05-16] MEDS: PROPOFOL 1,000,000 MCG/100 ML VIAL IVPB SCH (10:46)
--- NOTE | 2019-05-16 10:46 | PN ---
Teaching Attending Note Name of Resident: Oskar Saha ATTENDING PHYSICIAN STATEMENT I saw and evaluated the patient. I reviewed the resident's note and discussed the case with the resident. I agree with the resident's findings and plan as documented. SUBJECTIVE: Patient seen and examined in the ICU. Vented via Trach. Eyes are open but cannot follow commands. No pressors. Still with fever. Intake & Output 05/13/19 05/14/19 05/15/19 05/16/19 23:59 23:59 23:59 23:59 Intake Total 2257.4 1286 1100 1070 Output Total 1070 1930 1610 40 Balance 1187.4 -644 -510 1030 Weight 201 lb 1.6 oz 198 lb 6.4 oz 200 lb 9.6 oz 201 lb 3.2 oz Last Vital Signs Temp Pulse Resp BP Pulse Ox 99.4 F 99 H 18 158/98 100 05/16/19 10:20 05/16/19 10:20 05/16/19 10:20 05/16/19 10:20 05/16/19 08:59 Active Medications Acetaminophen (Ofirmev Injection -) 1,000 mg IVPB Q6H PRN PRN Reason: FEVER Last Admin: 05/15/19 22:39 Dose: 1,000 mg Albuterol/Ipratropium (Duoneb -) 1 amp NEB Q6H PRN PRN Reason: SHORTNESS OF BREATH Furosemide (Lasix Injection -) 60 mg IVPUSH DAILY MARYSE Last Admin: 05/16/19 09:18 Dose: 60 mg Heparin Sodium (Porcine) (Heparin -) 5,000 unit SQ TID MARYSE Last Admin: 05/16/19 06:13 Dose: 5,000 unit Meropenem 1 gm/ Dextrose 100 mls @ 100 mls/hr IVPB Q12H MARYSE Last Admin: 05/16/19 06:12 Dose: 100 mls/hr Fentanyl 500 mcg/ Dextrose 100 mls @ 10 mls/hr IVPB TITR MARYSE; Protocol Last Admin: 05/16/19 08:05 Dose: 50 mcg/hr, 10 mls/hr Propofol (Diprivan -) 1,000,000 mcg in 100 mls @ 2.7 mls/hr IVPB TITR MARYSE; Protocol Last Admin: 05/15/19 10:02 Dose: Not Given Fat Emulsion-Soy/MCT/[place]/Fish Oil (Smoflipid 20% Iv Fat Emulsion) 250 mls @ 20.833 mls/hr IV DAILY@2200 [facility] Last Admin: 05/15/19 22:06 Dose: 20.833 mls/hr Insulin Human Regular 80 units / Folic Acid 1 mg/Multivitamins/Minerals 10 ml/ Thiamine HCl 100 mg/ Chromium/Copper/Manganese/Zinc 1 ml/Sterile Water/ Amino Acids/Dextrose 1,200 mls @ 50 mls/hr IV DAILY@1600 [facility] Last Admin: 05/15/19 17:00 Dose: 50 mls/hr Dextrose (D5w -) 500 mls @ 50 mls/hr IV ONCE ONE Stop: 05/16/19 19:51 Insulin Aspart (Novolog Vial Sliding Scale -) 1 vial SQ TIDAC [facility]; Protocol Last Admin: 05/16/19 06:15 Dose: Not Given Ondansetron HCl (Zofran Injection) 4 mg IVPUSH Q6H PRN PRN Reason: NAUSEA AND/OR VOMITING Pantoprazole Sodium (Protonix Iv) 40 mg IVPUSH BID [facility] Last Admin: 05/16/19 09:18 Dose: 40 mg Gen: Vented, poorly responsive Heart: RRR Lung: scattered rhonchi Abd:soft, +ASHLEY with milky discharge (enteral feeds) Ext: + edema Laboratory Results - last 24 hr 05/15/19 05/15/19 05/16/19 17:40 21:05 05:30 WBC 7.8 RBC 2.37 L Hgb 7.0 L Hct 20.8 L MCV 88.0 MCH 29.7 MCHC 33.8 RDW 17.9 H Plt Count 154 MPV 11.4 H Sodium Potassium Chloride Carbon Dioxide Anion Gap BUN Creatinine Est GFR (CKD-EPI)AfAm Est GFR (CKD-EPI)NonAf POC Glucometer 218 185 Random Glucose Calcium Phosphorus Magnesium Total Bilirubin AST ALT Alkaline Phosphatase Total Protein Albumin 05/16/19 05/16/19 05:30 06:01 WBC RBC Hgb Hct MCV MCH MCHC RDW Plt Count MPV Sodium 149 H Potassium 4.3 Chloride 117 H Carbon Dioxide 27 Anion Gap 5 L BUN 109.2 H* Creatinine 2.6 H Est GFR (CKD-EPI)AfAm 28.91 Est GFR (CKD-EPI)NonAf 24.94 POC Glucometer 126 Random Glucose 136 H Calcium 8.5 Phosphorus 5.0 H Magnesium 2.3 Total Bilirubin 2.0 H AST 85 H ALT 54 Alkaline Phosphatase 87 Total Protein 5.1 L Albumin 1.1 L ASSESSMENT AND PLAN: Acute Hypoxic Respiratory Failure Perforated Duodenal Ulcer s/p Ex-lap/Jack Patch Repair Peritonitis Septic Shock Acute Kidney Injury Elevated LFTs likely Ischemic Injury Hyponatremia Volume Overload Anemia Thrombocytopenia Mental Retardation HTN DM - TPN - IVF - continue antibiotics, antifungals per ID - monitor drain output - protonix - DVT/GI prophylaxis - Monitor off Lasix - LTAC evaluation Dr Desai
--- NOTE | 2019-05-16 11:24 | PN ---
Progress Note, Physician History of Present Illness: SEDATED ON VENTILATOR REMAINS FEBRILE WBC IMPROVED WNL - Current Medication List Current Medications: Active Medications Acetaminophen (Ofirmev Injection -) 1,000 mg IVPB Q6H PRN PRN Reason: FEVER Last Admin: 05/15/19 22:39 Dose: 1,000 mg Albuterol/Ipratropium (Duoneb -) 1 amp NEB Q6H PRN PRN Reason: SHORTNESS OF BREATH Furosemide (Lasix Injection -) 60 mg IVPUSH DAILY [facility] Last Admin: 05/16/19 09:18 Dose: 60 mg Heparin Sodium (Porcine) (Heparin -) 5,000 unit SQ TID [facility] Last Admin: 05/16/19 06:13 Dose: 5,000 unit Meropenem 1 gm/ Dextrose 100 mls @ 100 mls/hr IVPB Q12H [facility] Last Admin: 05/16/19 06:12 Dose: 100 mls/hr Fentanyl 500 mcg/ Dextrose 100 mls @ 10 mls/hr IVPB TITR [facility]; Protocol Last Admin: 05/16/19 08:05 Dose: 50 mcg/hr, 10 mls/hr Propofol (Diprivan -) 1,000,000 mcg in 100 mls @ 2.7 mls/hr IVPB TITR [facility]; Protocol Last Admin: 05/16/19 10:46 Dose: Not Given Fat Emulsion-Soy/MCT/[place]/Fish Oil (Smoflipid 20% Iv Fat Emulsion) 250 mls @ 20.833 mls/hr IV DAILY@2200 [facility] Last Admin: 05/15/19 22:06 Dose: 20.833 mls/hr Insulin Human Regular 80 units / Folic Acid 1 mg/Multivitamins/Minerals 10 ml/ Thiamine HCl 100 mg/ Chromium/Copper/Manganese/Zinc 1 ml/Sterile Water/ Amino Acids/Dextrose 1,200 mls @ 50 mls/hr IV DAILY@1600 [facility] Last Admin: 05/15/19 17:00 Dose: 50 mls/hr Dextrose (D5w -) 500 mls @ 50 mls/hr IV ONCE ONE Stop: 05/16/19 19:51 Last Admin: 05/16/19 10:45 Dose: 50 mls/hr Insulin Aspart (Novolog Vial Sliding Scale -) 1 vial SQ TIDAC [facility]; Protocol Last Admin: 05/16/19 06:15 Dose: Not Given Ondansetron HCl (Zofran Injection) 4 mg IVPUSH Q6H PRN PRN Reason: NAUSEA AND/OR VOMITING Pantoprazole Sodium (Protonix Iv) 40 mg IVPUSH BID [facility] Last Admin: 05/16/19 09:18 Dose: 40 mg - Objective Vital Signs: Vital Signs Temperature 99.4 F 05/16/19 10:20 Pulse Rate 99 H 05/16/19 10:20 Respiratory Rate 18 05/16/19 10:20 Blood Pressure 158/98 05/16/19 10:20 O2 Sat by Pulse Oximetry (%) 100 05/16/19 10:00 Constitutional: Yes: No Distress Neck: Yes: Other (S/P TRACH) Cardiovascular: Yes: Regular Rate and Rhythm, Tachycardia Respiratory: Yes: Mechanically Ventilated Gastrointestinal: Yes: Soft, Other (SURGICAL DRSG IN PLACE +ASHLEY). No: Tenderness Edema: Yes Edema: LLE: 1+, RLE: 1+ Labs: CBC, BMP 05/16/19 05:30 05/16/19 05:30 INR, PTT INR 1.36 (0.83-1.09) H 05/05/19 05:00 Fibrinogen 443.0 mg/dL (238-498) 05/05/19 05:00 Assessment/Plan S/P PERFORATED PEPTIC ULCER S/P ANASTAMOTIC LEAK LEUKOCYTOSIS RESOLVED THROMBOCYTOPENIA RESOLVED DOMENIC CONTINUE VENTILATORY/ HEMODYNAMIC SUPPORT CONTINUE MEROPENEM
--- NOTE | 2019-05-16 11:29 | PN ---
Progress Note (short form) - Note Progress Note: surgery pt seen and examined. had fever last night but remains stable. minimal residual feeds in lex and 100 over last 24 hours sero-purulent or serous with feeds fixed abd- soft, nd, wound clean without granulation, Plan- Pod #16 (saturday)- feeds yesterday in lex confirms leak at repair site. This is likely from malnutrition and initial septic shock (pt also not healing incision either). feeds held. cont tpn. resume ngt to suction. in 2 weeks will need to repeat ct with oral contrast to evaluate if leak closed. cannot reoperate at this time 2 weeks out from surgery as this would be a hostile abd. leak must be small as minimal output in lex. if pt continues to have fevers would rescan in 4 days to look again for drainable collection. wbc normal. no evidence of gastric outlet obstruction. cont ngt indefinitely. will up to protonix drip do completely shut acid load to duodenum. wound should be irrigated daily with saline and dry dressing until closed. rik removed.
[2019-05-16] MEDS ORDERED: PANTOPRAZOLE SODIUM 80 MG in SODIUM CHLORIDE 100 ML IVPB SCH (11:30)
--- NOTE | 2019-05-16 11:43 | PN ---
Progress Note (short form) - Note Progress Note: Renal follow up for DOMENIC/Azotemia Coverage for Dr. Sutton Seen and examined in the ICU on vent, FiO2 is 35% no overnight events on TPN making urine Vital Signs Temperature 99.4 F 05/16/19 10:20 Pulse Rate 99 H 05/16/19 10:20 Respiratory Rate 18 05/16/19 10:20 Blood Pressure 158/98 05/16/19 10:20 O2 Sat by Pulse Oximetry (%) 100 05/16/19 10:00 Intake & Output 05/13/19 05/14/19 05/15/19 05/16/19 23:59 23:59 23:59 23:59 Intake Total 2257.4 1286 1100 1070 Output Total 1070 1930 1610 40 Balance 1187.4 -644 -510 1030 Weight 91.217 kg 89.993 kg 90.991 kg 91.263 kg NAD sedated RRR Dec BS ++ edema in upper and lower extremities CBC, BMP 05/16/19 05:30 05/16/19 05:30 Current Medications Acetaminophen (Ofirmev Injection -) 1,000 mg IVPB Q6H PRN PRN Reason: FEVER Last Admin: 05/15/19 22:39 Dose: 1,000 mg Albuterol/Ipratropium (Duoneb -) 1 amp NEB Q6H PRN PRN Reason: SHORTNESS OF BREATH Furosemide (Lasix Injection -) 60 mg IVPUSH DAILY [facility] Last Admin: 05/16/19 09:18 Dose: 60 mg Heparin Sodium (Porcine) (Heparin -) 5,000 unit SQ TID [facility] Last Admin: 05/16/19 06:13 Dose: 5,000 unit Meropenem 1 gm/ Dextrose 100 mls @ 100 mls/hr IVPB Q12H [facility] Last Admin: 05/16/19 06:12 Dose: 100 mls/hr Fentanyl 500 mcg/ Dextrose 100 mls @ 10 mls/hr IVPB TITR [facility]; Protocol Last Admin: 05/16/19 08:05 Dose: 50 mcg/hr, 10 mls/hr Propofol (Diprivan -) 1,000,000 mcg in 100 mls @ 2.7 mls/hr IVPB TITR [facility]; Protocol Last Admin: 05/16/19 10:46 Dose: Not Given Fat Emulsion-Soy/MCT/[place]/Fish Oil (Smoflipid 20% Iv Fat Emulsion) 250 mls @ 20.833 mls/hr IV DAILY@2200 [facility] Last Admin: 05/15/19 22:06 Dose: 20.833 mls/hr Insulin Human Regular 80 units / Folic Acid 1 mg/Multivitamins/Minerals 10 ml/ Thiamine HCl 100 mg/ Chromium/Copper/Manganese/Zinc 1 ml/Sterile Water/ Amino Acids/Dextrose 1,200 mls @ 50 mls/hr IV DAILY@1600 [facility] Last Admin: 05/15/19 17:00 Dose: 50 mls/hr Dextrose (D5w -) 500 mls @ 50 mls/hr IV ONCE ONE Stop: 05/16/19 19:51 Last Admin: 05/16/19 10:45 Dose: 50 mls/hr Pantoprazole Sodium 80 mg/ (Sodium Chloride) 100 mls @ 10 mls/hr IVPB Q10H [facility] Stop: 05/19/19 11:30 Insulin Aspart (Novolog Vial Sliding Scale -) 1 vial SQ TIDAC [facility]; Protocol Last Admin: 05/16/19 06:15 Dose: Not Given Ondansetron HCl (Zofran Injection) 4 mg IVPUSH Q6H PRN PRN Reason: NAUSEA AND/OR VOMITING IMPRESSION DOMENIC septic shock perforated duodenal ulcer fluid overload MR DM possible ckd transamitis hyperkalemia hyponatremia PLAN Continue TPN, not getting sodium chloride with TPN due to high sodium levels pt has peripheral edema but likely due to 3rd spacing in setting of low albumin levels BUN high due to TPN and volume deficit Cr stable no acute indication for dialysis continue D5W in addition to TPN ICU monitoring Reji Garcia DO
--- NOTE | 2019-05-16 13:18 | PN ---
Physical Exam: SUBJECTIVE: Patient seen and examined O/N: rigors, Tmax 102.9F Sedated on Fentanyl gtt OBJECTIVE: Vital Signs Period Temp Pulse Resp BP Sys/Booth Pulse Ox Last 24 Hr 99.1 F-102.9 F 97-140 11- 89-158/56-98 99-100 GENERAL: tracheostomy ventilated, sedated HEAD: Normal with no signs of trauma. EYES: sclera anicteric, conjunctiva clear. No ptosis. ENT: Ears normal, nares patent, moist mucous membranes. NGT ~60cm at nares NECK: Trachea midline, full range of motion, supple. LUNGS: coarse b/l BS to auscultation bilaterally. Vent 500, 14, 5, 35% HEART: tachycardic and regular rhythm, S1, S2 without murmur, rub or gallop. ABDOMEN: Soft, nontender, nondistended, hypoactive bowel sounds, surgical dressings overlying mid abd without purulence or signs of infection. ASHLEY with thin white drainage, midline surgical wound with WTD dressing in place : mild scrotum edema EXTREMITIES: 2+ pulses, warm, well-perfused, improving peripheral edema. NEUROLOGICAL: unresponsive, does not follow commands, eyes are occasionally tracking motions; blink response to threat, withdrawing to painful stimuli; on Fentanyl gtt SKIN: Warm, dry, normal turgor, no rashes or lesions noted, edema Laboratory Results - last 24 hr 05/15/19 05/15/19 05/16/19 17:40 21:05 05:30 WBC 7.8 RBC 2.37 L Hgb 7.0 L Hct 20.8 L MCV 88.0 MCH 29.7 MCHC 33.8 RDW 17.9 H Plt Count 154 MPV 11.4 H Sodium Potassium Chloride Carbon Dioxide Anion Gap BUN Creatinine Est GFR (CKD-EPI)AfAm Est GFR (CKD-EPI)NonAf POC Glucometer 218 185 Random Glucose Calcium Phosphorus Magnesium Total Bilirubin AST ALT Alkaline Phosphatase Total Protein Albumin 05/16/19 05/16/19 05/16/19 05:30 06:01 11:09 WBC RBC Hgb Hct MCV MCH MCHC RDW Plt Count MPV Sodium 149 H Potassium 4.3 Chloride 117 H Carbon Dioxide 27 Anion Gap 5 L BUN 109.2 H* Creatinine 2.6 H Est GFR (CKD-EPI)AfAm 28.91 Est GFR (CKD-EPI)NonAf 24.94 POC Glucometer 126 151 Random Glucose 136 H Calcium 8.5 Phosphorus 5.0 H Magnesium 2.3 Total Bilirubin 2.0 H AST 85 H ALT 54 Alkaline Phosphatase 87 Total Protein 5.1 L Albumin 1.1 L Active Medications Generic Name Dose Route Start Last Admin Trade Name Freq PRN Reason Stop Dose Admin Acetaminophen 1,000 mg 05/15/19 21:58 05/15/19 22:39 Ofirmev Injection - IVPB 1,000 mg Q6H PRN Administration FEVER Albuterol/Ipratropium 1 amp 05/12/19 08:08 Duoneb - NEB Q6H PRN SHORTNESS OF BREATH Furosemide 60 mg 05/12/19 10:00 05/16/19 09:18 Lasix Injection - IVPUSH 60 mg DAILY [facility] Administration Heparin Sodium (Porcine) 5,000 unit 05/02/19 22:00 05/16/19 06:13 Heparin - SQ 5,000 unit TID [facility] Administration Meropenem 1 gm/ Dextrose 100 mls @ 100 mls/hr 05/12/19 06:00 05/16/19 06:12 IVPB 100 mls/hr Q12H [facility] Administration Fentanyl 500 mcg/ Dextrose 100 mls @ 10 mls/hr 05/12/19 09:00 05/16/19 08:05 IVPB 50 mcg/hr TITR [facility] 10 mls/hr Administration Protocol 50 MCG/HR Propofol 1,000,000 mcg in 100 mls @ 2.7 mls/hr 05/14/19 10:00 05/16/19 10:46 Diprivan - IVPB Not Given TITR [facility] Protocol 5 MCG/KG/MIN Fat Emulsion-Soy/MCT/[place]/Fish Oil 250 mls @ 20.833 mls/hr 05/15/19 22:00 22:06 Smoflipid 20% Iv Fat Emulsion IV 20.833 mls/hr DAILY@2200 [facility] Administration Dextrose 500 mls @ 50 mls/hr 05/16/19 09:52 05/16/19 10:45 D5w - IV 05/16/19 19:51 50 mls/hr ONCE ONE Administration Pantoprazole Sodium 80 mg/ 100 mls @ 10 mls/hr 05/16/19 11:30 Sodium Chloride IVPB 05/19/19 11:30 Q10H [facility] 8 MG/HR Insulin Human Regular 70 units 1,500 mls @ 62.5 mls/hr 05/16/19 16:00 / Folic Acid 1 mg/ IV Multivitamins/Minerals 10 ml/ DAILY@1600 [facility] Thiamine HCl 100 mg/ Sterile Water/ Amino Acids/ Dextrose Insulin Aspart 1 vial 05/01/19 07:00 05/16/19 11:44 Novolog Vial Sliding Scale - SQ 2 units TIDAC [facility] Administration Protocol Ondansetron HCl 4 mg 04/30/19 16:45 Zofran Injection IVPUSH Q6H PRN NAUSEA AND/OR VOMITING ASSESSMENT/PLAN: 64 year old male with PMH of MR, HTN, DM, b/l LE swelling who was BIBEMS for a 1 day h/o Hypotension (70/51), lethargy and tachycardia, found to have free air under the diaphragm s/p omental patch for duodenal perforation POD14. Post-op admission to ICU intubated for HD monitoring. Neuro # Uremia -minimally interactive --possibly 2/2 developmental delay vs uremia vs sedation -sedated on fentanyl 25mcg -per Juan Jose, patient speaks one word sentences and performs some ADLs without assist Pulmonary -Intubated -->s/p tracheostomy(Sarmadastri, 05/14/19); consented w/ [employer] attorney Mr Vigil -Vent: 500, 14, 6, 35% Cardio #Hypotension --likely 2/2 septic shock ---resolving -off pressors -CVP goal 8-12 GI # Perforated duodenum --possibly 2/2 freq NSAID usage vs H pylori # Jack Patch leakage --monitor ASHLEY drain outpt # Transamnitis --likely shocked liver, levels elevated and stable > CT A/P(05/15/19): -S/p Ex-Lap w/ Jack Patch(Perlita, 04/30/19) -NGT placed surgically. per surgery NGT SHOULD NOT BE REMOVED OR MANIPULATED for 2 weeks -per surgery no TF as there is a possible leakage of Jack Patch -ASHLEY drain to stay in place per surgery instructions -surgical packing and rik removed; per surgery instruction: irrigate wound with WTD saline and cover with dry dressing daily -repeat CT A/P w/ PO contrast at ~06/03/19 to reevaluate for leak -repeat CT A/P in 5d if fevers persist -protonix gtt -Abx regimen: s/p flagyl, fluc, ceftr now all DCd; on meropenem as per ID -restarted TPN(05/15/19) Renal #DOMENIC --likely 2/2 cardiorenal syndrome - Cr improving 2.6, BUN 109.2 - Nephro(Lesley) consult: -lasix 60mg QD - Nephro(Jose) consult: -possibly 3rd spacing dt hypoalbuminemia ID -downtrending WBC since surgery, today 7.8 >CTH(05/06/19): neg acute path >CT A/P(05/06/19): free air along the subhepatic space, likely postsurgical >CT A/P(05/13/19): b/l pleural efusion, unchanged small pneumoperitoneum at RUQ near ASHLEY; no abscess -s/p new line and 1g vanc with AM vanc level ordered -on daily meropenem now; continues to spike fever despite radha > Venous Duplex BLE(05/13/19): neg DVT Heme # thrombocytopenia, now resolved - plt stable; H&H stable > HIT panel: negative FEN -TPN -replete lytes prn -NPO until a rpt CT(~06/03/19) shows no anastomotic leak PPX -Protonix gtt -SQH TID Dispo -ICU monitoring -discharge to LTACH --pending Visit type - Emergency Visit Emergency Visit: No - New Patient This patient is new to me today: No - Critical Care Critical Care patient: Yes Total Critical Care Time (in minutes): 36 Critical Care Statement: The care of this patient involved high complexity decision making to prevent further life threatening deterioration of the patient 's condition and/or to evaluate & treat vital organ system(s) failure or risk of failure. ATTENDING PHYSICIAN STATEMENT I saw and evaluated the patient. I reviewed the resident's note and discussed the case with the resident. I agree with the resident's findings and plan as documented. SUBJECTIVE: OBJECTIVE: ASSESSMENT AND PLAN:
[2019-05-16] MEDS: PANTOPRAZOLE SODIUM 80 MG in SODIUM CHLORIDE 100 ML IVPB SCH (15:45)
[2019-05-16] MEDS ORDERED: PT OWN MED DRAWER 7, Y5N ONE (15:55)
[2019-05-16] MEDS ORDERED: FOLIC ACID IV SCH (16:00)
[2019-05-16] MEDS ORDERED: MULTIVIT IV SCH (16:00)
[2019-05-16] MEDS ORDERED: [UNRECOGNIZED DRUG - OTHER] IV SCH (16:00)
[2019-05-16] MEDS ORDERED: INSULIN REGULAR IV SCH (16:00)
--- NOTE | 2019-05-16 17:42 | PN ---
Progress Note (short form) - Note Progress Note: Patient is comfortable on the ventilator. Had fever last night. Seen by surgery ID critical care and nephrology all their documentation read. Vital Signs Period Temp Pulse Resp BP Sys/Booth Pulse Ox Last 24 Hr 99.1 F-102.9 F 97-140 11-24 90-158/56-98 99-100 Physical examination Gen: Vented, poorly responsive Heart: RRR Lung: scattered rhonchi Abd:soft, +ASHLEY with milky discharge (enteral feeds) Ext: + edema CBC, BMP 05/16/19 05:30 05/16/19 05:30 Assessment and plan Respiratory failure Continue ventricular management. Perforated duodenal ulcer status post repair. As per surgery there is still a leak and the plan is mentioned in the note by surgery to repeat CAT scan in 2 weeks continue to watch. Septic shock continue fluids Hyponatremia replace for low sodium Anemia will watch Hypertension and diabetes continue current medication and insulin protocol. Visit type - Emergency Visit Emergency Visit: Yes ED Registration Date: 04/30/19 Care time: The patient presented to the Emergency Department on the above date and was hospitalized for further evaluation of their emergent condition. - New Patient This patient is new to me today: Yes Date on this admission: 05/16/19 - Critical Care Critical Care patient: No - Discharge Referral Referred to [facility] No
[2019-05-16] MEDS ORDERED: PANTOPRAZOLE SODIUM 40 MG VIAL IVPUSH SCH (22:00)
[2019-05-16] MEDS: ACETAMINOPHEN 1000 MG/100 ML VIAL (NON FORMULARY) IVPB PRN (22:02)
[2019-05-17] MEDS: PANTOPRAZOLE SODIUM 80 MG in SODIUM CHLORIDE 100 ML IVPB SCH ×3 (02:55→23:14)
[2019-05-17] MEDS ORDERED: DEXTROSE 5%-WATER 100 ML IVPB ONE ×2 (05:54→17:25)
[2019-05-17] MEDS ORDERED: MEROPENEM 1 GM VIAL (RESTRICTED TO ID) IVPB ONE ×2 (05:54→17:25)
[2019-05-17] MEDS: HEPARIN NA (PORCINE) 5,000 UNITS/ML 1ML VIAL SQ SCH ×3 (05:55→21:14)
[2019-05-17] MEDS: MEROPENEM 1 GM in DEXTROSE 5%-WATER 100 ML IVPB SCH ×2 (05:55→17:37)
[2019-05-17] MEDS: INSULIN SLIDING SCALE (NOVOLOG) 1 VIAL SQ SCH ×3 (06:05→16:43)
[2019-05-17 06:52] LABS: HEMATOCRIT 21.6 % (35.4-49); HEMOGLOBIN 7.2 GM/dL (11.7-16.9); MCH 29.6 pg (25.7-33.7); MCHC 33.4 g/dl (32.0-35.9); MEAN CELL VOLUME 88.5 fl (80-96); MEAN PLT VOLUME 11.6 fl (7.5-11.1); PLATELET COUNT 156 K/MM3 (134-434); RBC 2.44 M/mm3 (4.00-5.60); RDW 19.3 % (11.9-15.9); WHITE BLOOD COUNT 6.8 K/mm3 (4.0-10.0)
[2019-05-17] MEDS ORDERED: fentaNYL CITRATE 250 MCG/5 ML VIAL ONE (07:16)
[2019-05-17 08:02] LABS: ALBUMIN 1.2 g/dl (3.4-5.0); BILIRUBIN,TOTAL 2.1 mg/dL (0.2-1); CALCIUM 7.6 mg/dL (8.5-10.1); CREATININE 2.3 mg/dL (0.55-1.3); MAGNESIUM 1.9 mg/dL (1.8-2.4); POTASSIUM 3.9 mmol/L (3.5-5.1); TOT PROT 5.5 g/dl (6.4-8.2)
[2019-05-17 08:06] LABS: BLOOD UREA NITROGEN 107.1 mg/dL (7-18)
[2019-05-17] MEDS: FENTANYL INJECTION 500 MCG in DEXTROSE 5%-WATER - 90 ML IVPB SCH (09:44)
[2019-05-17] MEDS: FUROSEMIDE 40 MG/4 ML INJECTABLE VIAL IVPUSH SCH (09:44)
--- NOTE | 2019-05-17 10:39 | PN ---
Teaching Attending Note Name of Resident: Angie Cormier ATTENDING PHYSICIAN STATEMENT I saw and evaluated the patient. I reviewed the resident's note and discussed the case with the resident. I agree with the resident's findings and plan as documented. SUBJECTIVE: Patient seen and examined in the ICU. Vented via Trach. Eyes are open but cannot follow commands. No pressors. Intake & Output 05/14/19 05/15/19 05/16/19 05/17/19 23:59 23:59 23:59 23:59 Intake Total 1286 1100 2410 Output Total 1930 1610 1460 Balance -644 -510 950 Weight 198 lb 6.4 oz 200 lb 9.6 oz 201 lb 3.2 oz 196 lb 8 oz Last Vital Signs Temp Pulse Resp BP Pulse Ox 99.6 F 106 H 17 125/65 100 05/17/19 06:00 05/17/19 08:00 05/17/19 09:00 05/17/19 08:00 05/17/19 09:00 Active Medications Acetaminophen (Ofirmev Injection -) 1,000 mg IVPB Q6H PRN PRN Reason: FEVER Last Admin: 05/16/19 22:02 Dose: 1,000 mg Furosemide (Lasix Injection -) 60 mg IVPUSH DAILY [facility] Last Admin: 05/17/19 09:44 Dose: 60 mg Heparin Sodium (Porcine) (Heparin -) 5,000 unit SQ TID [facility] Last Admin: 05/17/19 05:55 Dose: 5,000 unit Meropenem 1 gm/ Dextrose 100 mls @ 100 mls/hr IVPB Q12H [facility] Last Admin: 05/17/19 05:55 Dose: 100 mls/hr Fentanyl 500 mcg/ Dextrose 100 mls @ 10 mls/hr IVPB TITR [facility]; Protocol Last Admin: 05/17/19 09:44 Dose: 50 mcg/hr, 10 mls/hr Insulin Human Regular 70 units / Folic Acid 1 mg/Multivitamins/Minerals 10 ml/ Thiamine HCl 100 mg/ Sterile Water/ Amino Acids/ Dextrose 1,500 mls @ 62.5 mls/ hr IV DAILY@1600 [facility] Last Admin: 05/16/19 16:02 Dose: 62.5 mls/hr Pantoprazole Sodium 80 mg/ (Sodium Chloride) 100 mls @ 10 mls/hr IVPB Q10H [facility] Stop: 05/19/19 15:37 Last Admin: 05/17/19 02:55 Dose: 10 mls/hr Insulin Aspart (Novolog Vial Sliding Scale -) 1 vial SQ TIDAC [facility]; Protocol Last Admin: 05/17/19 06:05 Dose: 2 units Ondansetron HCl (Zofran Injection) 4 mg IVPUSH Q6H PRN PRN Reason: NAUSEA AND/OR VOMITING Gen: Vented, poorly responsive Heart: RRR Lung: scattered rhonchi Abd:soft, +ASHLEY with milky discharge (enteral feeds) Ext: + edema Laboratory Results - last 24 hr 05/16/19 05/16/19 05/17/19 11:09 17:18 05:43 WBC RBC Hgb Hct MCV MCH MCHC RDW Plt Count MPV Sodium Potassium Chloride Carbon Dioxide Anion Gap BUN Creatinine Est GFR (CKD-EPI)AfAm Est GFR (CKD-EPI)NonAf POC Glucometer 151 173 187 Random Glucose Calcium Phosphorus Magnesium Total Bilirubin AST ALT Alkaline Phosphatase Total Protein Albumin 05/17/19 05/17/19 05:45 05:45 WBC 6.8 RBC 2.44 L Hgb 7.2 L Hct 21.6 L MCV 88.5 MCH 29.6 MCHC 33.4 RDW 19.3 H Plt Count 156 MPV 11.6 H Sodium 144 Potassium 3.9 Chloride 116 H Carbon Dioxide 27 Anion Gap 1 L BUN 107.1 H* Creatinine 2.3 H Est GFR (CKD-EPI)AfAm 33.53 Est GFR (CKD-EPI)NonAf 28.93 POC Glucometer Random Glucose 200 H Calcium 7.6 L Phosphorus 5.0 H Magnesium 1.9 Total Bilirubin 2.1 H AST 87 H ALT 55 Alkaline Phosphatase 83 Total Protein 5.5 L Albumin 1.2 L ASSESSMENT AND PLAN: Acute Hypoxic Respiratory Failure Perforated Duodenal Ulcer s/p Ex-lap/Jack Patch Repair Peritonitis Septic Shock Acute Kidney Injury Elevated LFTs likely Ischemic Injury Hyponatremia Volume Overload Anemia Thrombocytopenia Mental Retardation HTN DM - TPN adjusted - NPO - continue antibiotics, antifungals per ID - monitor drain output - protonix - DVT/GI prophylaxis - Monitor off Lasix - LTAC evaluation Dr Desai
--- NOTE | 2019-05-17 10:56 | PN ---
Progress Note (short form) - Note Progress Note: Renal follow up for DOMENIC/Azotemia Coverage for Dr. Sutton Seen and examined in the ICU on vent, FiO2 is 35% no overnight events on TPN making urine clinically unchanged Vital Signs Temperature 99 F 05/17/19 10:00 Pulse Rate 101 H 05/17/19 10:00 Respiratory Rate 15 05/17/19 10:00 Blood Pressure 120/58 L 05/17/19 10:00 O2 Sat by Pulse Oximetry (%) 100 05/17/19 09:00 Intake & Output 05/14/19 05/15/19 05/16/19 05/17/19 23:59 23:59 23:59 23:59 Intake Total 1286 1100 2410 Output Total 1930 1610 1460 Balance -644 -510 950 Weight 89.993 kg 90.991 kg 91.263 kg 89.131 kg NAD sedated RRR Dec BS ++ edema in upper and lower extremities CBC, BMP 05/17/19 05:45 05/17/19 05:45 Current Medications Acetaminophen (Ofirmev Injection -) 1,000 mg IVPB Q6H PRN PRN Reason: FEVER Last Admin: 05/16/19 22:02 Dose: 1,000 mg Furosemide (Lasix Injection -) 60 mg IVPUSH DAILY [facility] Last Admin: 05/17/19 09:44 Dose: 60 mg Heparin Sodium (Porcine) (Heparin -) 5,000 unit SQ TID [facility] Last Admin: 05/17/19 05:55 Dose: 5,000 unit Meropenem 1 gm/ Dextrose 100 mls @ 100 mls/hr IVPB Q12H [facility] Last Admin: 05/17/19 05:55 Dose: 100 mls/hr Fentanyl 500 mcg/ Dextrose 100 mls @ 10 mls/hr IVPB TITR [facility]; Protocol Last Admin: 05/17/19 09:44 Dose: 50 mcg/hr, 10 mls/hr Insulin Human Regular 70 units / Folic Acid 1 mg/Multivitamins/Minerals 10 ml/ Thiamine HCl 100 mg/ Sterile Water/ Amino Acids/ Dextrose 1,500 mls @ 62.5 mls/ hr IV DAILY@1600 [facility] Last Admin: 05/16/19 16:02 Dose: 62.5 mls/hr Pantoprazole Sodium 80 mg/ (Sodium Chloride) 100 mls @ 10 mls/hr IVPB Q10H [facility] Stop: 05/19/19 15:37 Last Admin: 05/17/19 02:55 Dose: 10 mls/hr Insulin Aspart (Novolog Vial Sliding Scale -) 1 vial SQ TIDAC [facility]; Protocol Last Admin: 05/17/19 06:05 Dose: 2 units Ondansetron HCl (Zofran Injection) 4 mg IVPUSH Q6H PRN PRN Reason: NAUSEA AND/OR VOMITING IMPRESSION DOMENIC septic shock perforated duodenal ulcer fluid overload MR DM possible ckd transamitis hyperkalemia hyponatremia PLAN Continue TPN pt has peripheral edema but likely due to 3rd spacing in setting of low albumin levels BUN high due to TPN and intravascular volume deficit On IV lasix for edema mangement Cr stable no acute indication for dialysis continue D5W in addition to TPN ICU monitoring Reji Garcia DO
[2019-05-17] MEDS ORDERED: INSULIN (NOVOLOG) ASPART 100 UNITS/ML 10ML VIAL ONE (11:20)
--- NOTE | 2019-05-17 12:02 | PN ---
Physical Exam: SUBJECTIVE: Patient seen and examined. No acute events overnight. OBJECTIVE: Vital Signs Period Temp Pulse Resp BP Sys/Booth Pulse Ox Last 24 Hr 99 F-101.4 F 95-108 14-31 95-127/53-65 98-100 GENERAL: S/p tracheostomy ventilated, sedated HEAD: Normal with no signs of trauma. EYES: sclera anicteric, conjunctiva clear. No ptosis. ENT: Ears normal, nares patent, moist mucous membranes. NGT ~60cm at nares NECK: Trachea midline, full range of motion, supple. LUNGS: Coarse b/l BS to auscultation bilaterally. Vent 500, 14, 5, 35% HEART: tachycardic and regular rhythm, S1, S2 without murmur, rub or gallop. ABDOMEN: Soft, nontender, nondistended, hypoactive bowel sounds, surgical dressings overlying mid abd without purulence or signs of infection. ASHLEY with thin white drainage, midline surgical wound with WTD dressing in place : mild scrotum edema EXTREMITIES: 2+ pulses, warm, well-perfused, improving peripheral edema. NEUROLOGICAL: unresponsive, does not follow commands, eyes are occasionally tracking motions; blink response to threat, withdrawing to painful stimuli; on Fentanyl gtt SKIN: Warm, dry, normal turgor, no rashes or lesions noted, edema Laboratory Results - last 24 hr CBC, BMP 05/17/19 05:45 05/17/19 05:45 Active Medications Acetaminophen (Ofirmev Injection -) 1,000 mg IVPB Q6H PRN PRN Reason: FEVER Last Admin: 05/16/19 22:02 Dose: 1,000 mg Furosemide (Lasix Injection -) 60 mg IVPUSH DAILY [facility] Last Admin: 05/17/19 09:44 Dose: 60 mg Heparin Sodium (Porcine) (Heparin -) 5,000 unit SQ TID [facility] Last Admin: 05/17/19 05:55 Dose: 5,000 unit Meropenem 1 gm/ Dextrose 100 mls @ 100 mls/hr IVPB Q12H [facility] Last Admin: 05/17/19 05:55 Dose: 100 mls/hr Fentanyl 500 mcg/ Dextrose 100 mls @ 10 mls/hr IVPB TITR [facility]; Protocol Last Admin: 05/17/19 09:44 Dose: 50 mcg/hr, 10 mls/hr Insulin Human Regular 70 units / Folic Acid 1 mg/Multivitamins/Minerals 10 ml/Thiamine HCl 100 mg/ Sterile Water/ Amino Acids/ Dextrose 1,500 mls @ 62.5 mls/hr IV DAILY@1600 MARYSE Last Admin: 05/16/19 16:02 Dose: 62.5 mls/hr Pantoprazole Sodium 80 mg/ (Sodium Chloride) 100 mls @ 10 mls/hr IVPB Q10H MARYSE Stop: 05/19/19 15:37 Last Admin: 05/17/19 02:55 Dose: 10 mls/hr Insulin Aspart (Novolog Vial Sliding Scale -) 1 vial SQ TIDAC [facility]; Protocol Last Admin: 05/17/19 11:46 Dose: 2 units Ondansetron HCl (Zofran Injection) 4 mg IVPUSH Q6H PRN PRN Reason: NAUSEA AND/OR VOMITING ASSESSMENT/PLAN: Patient is a 64 year old male with PMH of MR, HTN, DM, b/l LE swelling who was BIBEMS for a 1 day h/o Hypotension (70/51), lethargy and tachycardia, found to have free air under the diaphragm s/p omental patch for duodenal perforation POD14. Post-op admission to ICU intubated for HD monitoring. Neuro -uremia -minimally interactive --possibly 2/2 developmental delay vs uremia vs sedation -sedated on fentanyl 25mcg -per Juan Jose, patient speaks one word sentences and performs some ADLs without assist Pulmonary -Intubated -->s/p tracheostomy(Sarmadastri, 05/14/19); consented w/ associate attorney Mr Vigil -Vent: 500, 14, 6, 35% Cardiovascular -Hypotension --likely 2/2 septic shock ---resolving -Off pressors -CVP goal 8-12 GI -Perforated duodenum --possibly 2/2 freq NSAID usage vs H pylori -Jack Patch leakage --monitor ASHLEY drain outpt -Transamnitis --likely shocked liver, levels elevated and stable -CT A/P(05/15/19): -S/p Ex-Lap w/ Jack Patch(Perlita, 04/30/19) -NGT placed surgically. per surgery NGT SHOULD NOT BE REMOVED OR MANIPULATED for 2 weeks -per surgery no TF as there is a possible leakage of Jack Patch -ASHLEY drain to stay in place per surgery instructions -surgical packing and rik removed; per surgery instruction: irrigate wound with WTD saline and cover with dry dressing daily -repeat CT A/P w/ PO contrast at ~06/03/19 to reevaluate for leak -repeat CT A/P in 5d if fevers persist -protonix gtt -Abx regimen: s/p flagyl, fluc, ceftr now all DCd; on meropenem as per ID -restarted TPN(05/15/19) Renal -DOMENIC --likely 2/2 cardiorenal syndrome -Cr improving 2.6, BUN 109.2 -Nephro([facility]) consult: -lasix 60mg QD -Nephro([facility]) consult: -possibly 3rd spacing dt hypoalbuminemia ID -downtrending WBC since surgery, today 7.8 -CTH(05/06/19): neg acute path -CT A/P(05/06/19): free air along the subhepatic space, likely postsurgical -CT A/P(05/13/19): b/l pleural efusion, unchanged small pneumoperitoneum at RUQ near ASHLEY; no abscess -s/p new line and 1g vanc with AM vanc level ordered -on daily meropenem now; continues to spike fever despite radha -Venous Duplex BLE(05/13/19): neg DVT Heme -thrombocytopenia, now resolved -plt stable; H&H stable -HIT panel: negative FEN -TPN -replete lytes prn -NPO until a rpt CT(~06/03/19) shows no anastomotic leak Ppx -Protonix gtt -SQH TID Dispo -ICU monitoring -discharge to [facility] --pending Visit type - Emergency Visit Emergency Visit: No - New Patient This patient is new to me today: No - Critical Care Critical Care patient: Yes Total Critical Care Time (in minutes): 45 Critical Care Statement: The care of this patient involved high complexity decision making to prevent further life threatening deterioration of the patient's condition and/or to evaluate & treat vital organ system(s) failure or risk of failure. ATTENDING PHYSICIAN STATEMENT I saw and evaluated the patient. I reviewed the resident's note and discussed the case with the resident. I agree with the resident's findings and plan as documented. SUBJECTIVE: OBJECTIVE: ASSESSMENT AND PLAN:
--- NOTE | 2019-05-17 14:55 | PN ---
Progress Note (short form) - Note Progress Note: Patient is comfortable on the ventilator. Had fever last night. Seen by surgery ID critical care and nephrology all their documentation read. Still had drainage from the ASHLEY drain Vital Signs Period Temp Pulse Resp BP Sys/Booth Pulse Ox Last 24 Hr 99 F-101.4 F 95-108 14-31 95-127/53-65 98-100 Physical examination Gen: Vented, poorly responsive Heart: RRR Lung: scattered rhonchi Abd:soft, +ASHLEY with milky discharge (enteral feeds) Ext: + edema CBC, BMP 05/17/19 05:45 05/17/19 05:45 Assessment and plan Respiratory failure Continue ventricular management. Perforated duodenal ulcer status post repair. As per surgery there is still a leak and the plan is mentioned in the note by surgery to repeat CAT scan in 2 weeks continue to watch. Septic shock continue fluids Hyponatremia replace for low sodium Anemia will watch Hypertension and diabetes continue current medication and insulin protocol. Visit type - Emergency Visit Emergency Visit: Yes ED Registration Date: 04/30/19 Care time: The patient presented to the Emergency Department on the above date and was hospitalized for further evaluation of their emergent condition. - New Patient This patient is new to me today: No - Critical Care Critical Care patient: No - Discharge Referral Referred to [facility] No Physician Referral: Tomas Nielson MD ([facility])
[2019-05-17] MEDS ORDERED: INSULIN REGULAR IV SCH ×2 (16:00)
[2019-05-17] MEDS ORDERED: MULTIVIT IV SCH ×2 (16:00)
[2019-05-17] MEDS ORDERED: FOLIC ACID IV SCH ×2 (16:00)
[2019-05-17] MEDS ORDERED: [UNRECOGNIZED DRUG - OTHER] IV SCH ×2 (16:00)
[2019-05-17] MEDS: ACETAMINOPHEN 1000 MG/100 ML VIAL (NON FORMULARY) IVPB PRN (20:43)
[2019-05-17] MEDS ORDERED: FAT EMUL/SOY/MCT/OLIV/FISH OIL 250 ML IV SCH (22:00)
--- NOTE | 2019-05-17 23:25 | PN ---
Progress Note, Physician History of Present Illness: SEDATED ON VENTILATOR REMAINS FEBRILE WBC IMPROVED WNL - Current Medication List Current Medications: Active Medications Acetaminophen (Ofirmev Injection -) 1,000 mg IVPB Q6H PRN PRN Reason: FEVER Last Admin: 05/17/19 20:43 Dose: 1,000 mg Furosemide (Lasix Injection -) 60 mg IVPUSH DAILY [facility] Last Admin: 05/17/19 09:44 Dose: 60 mg Heparin Sodium (Porcine) (Heparin -) 5,000 unit SQ TID [facility] Last Admin: 05/17/19 21:14 Dose: 5,000 unit Meropenem 1 gm/ Dextrose 100 mls @ 100 mls/hr IVPB Q12H [facility] Last Admin: 05/17/19 17:37 Dose: 100 mls/hr Fentanyl 500 mcg/ Dextrose 100 mls @ 10 mls/hr IVPB TITR [facility]; Protocol Last Admin: 05/17/19 09:44 Dose: 50 mcg/hr, 10 mls/hr Pantoprazole Sodium 80 mg/ (Sodium Chloride) 100 mls @ 10 mls/hr IVPB Q10H [facility] Stop: 05/19/19 15:37 Last Admin: 05/17/19 23:14 Dose: 10 mls/hr Fat Emulsion-Soy/MCT/[place]/Fish Oil (Smoflipid 20% Iv Fat Emulsion) 250 mls @ 20.833 mls/hr IV DAILY@2200 [facility] Last Admin: 05/17/19 21:16 Dose: 20.833 mls/hr Insulin Human Regular 75 units / Folic Acid 1 mg/Multivitamins/Minerals 10 ml/ Thiamine HCl 100 mg/ Magnesium Sulfate 0.985 gm/ Sterile Water/ Amino Acids/ Dextrose 1,800 mls @ 75 mls/hr IV DAILY@1600 [facility] Last Admin: 05/17/19 16:15 Dose: 75 mls/hr Insulin Aspart (Novolog Vial Sliding Scale -) 1 vial SQ TIDAC [facility]; Protocol Last Admin: 05/17/19 16:43 Dose: 2 units Ondansetron HCl (Zofran Injection) 4 mg IVPUSH Q6H PRN PRN Reason: NAUSEA AND/OR VOMITING - Objective Vital Signs: Vital Signs Temperature 101.4 F H 05/17/19 21:00 Pulse Rate 93 H 05/17/19 22:36 Respiratory Rate 17 05/17/19 22:36 Blood Pressure 100/58 L 05/17/19 22:36 O2 Sat by Pulse Oximetry (%) 100 05/17/19 19:49 Constitutional: Yes: No Distress Cardiovascular: Yes: Regular Rate and Rhythm, S1, S2 Respiratory: Yes: Mechanically Ventilated Gastrointestinal: Yes: Normal Bowel Sounds, Abdomen, Obese, Other (SURGICAL DRESSING IN PLACE) Labs: CBC, BMP 05/17/19 05:45 05/17/19 05:45 INR, PTT INR 1.36 (0.83-1.09) H 05/05/19 05:00 Fibrinogen 443.0 mg/dL (238-498) 05/05/19 05:00 Assessment/Plan S/P PERFORATED PEPTIC ULCER S/P ANASTAMOTIC LEAK LEUKOCYTOSIS RESOLVED THROMBOCYTOPENIA RESOLVED DOMENIC CONTINUE VENTILATORY/ HEMODYNAMIC SUPPORT CONTINUE MEROPENEM
[2019-05-18] MEDS ORDERED: fentaNYL CITRATE 250 MCG/5 ML VIAL ONE (05:52)
[2019-05-18] MEDS ORDERED: DEXTROSE 5%-WATER 100 ML IVPB ONE ×3 (05:53→20:31)
[2019-05-18] MEDS ORDERED: MEROPENEM 1 GM VIAL (RESTRICTED TO ID) IVPB ONE ×3 (05:53→20:31)
[2019-05-18 05:58] LABS: BASO % 2.3 % (0-2.0); EOS % 13.3 % (0-4.5); HEMATOCRIT 22.1 % (35.4-49); HEMOGLOBIN 7.4 GM/dL (11.7-16.9); LYMPH % 23.2 % (8-40); MCH 29.6 pg (25.7-33.7); MCHC 33.5 g/dl (32.0-35.9); MEAN CELL VOLUME 88.5 fl (80-96); MEAN PLT VOLUME 11.3 fl (7.5-11.1); MONO % 14.8 % (3.8-10.2); NEUT % 46.4 % (42.8-82.8); PLATELET COUNT 182 K/MM3 (134-434); RDW 20.7 % (11.9-15.9); WHITE BLOOD COUNT 6.5 K/mm3 (4.0-10.0)
[2019-05-18] MEDS: HEPARIN NA (PORCINE) 5,000 UNITS/ML 1ML VIAL SQ SCH ×3 (06:05→21:15)
[2019-05-18] MEDS: INSULIN SLIDING SCALE (NOVOLOG) 1 VIAL SQ SCH ×3 (06:06→16:13)
[2019-05-18] MEDS: MEROPENEM 1 GM in DEXTROSE 5%-WATER 100 ML IVPB SCH ×2 (06:07→17:38)
[2019-05-18 06:36] LABS: ALBUMIN 1.2 g/dl (3.4-5.0); BILIRUBIN,TOTAL 1.8 mg/dL (0.2-1); BLOOD UREA NITROGEN 98.5 mg/dL (7-18); CALCIUM 7.8 mg/dL (8.5-10.1); PHOSPHOROUS 3.8 mg/dL (2.5-4.9); POTASSIUM 3.6 mmol/L (3.5-5.1); TOT PROT 5.9 g/dl (6.4-8.2)
[2019-05-18 06:47] LABS: ANISOCYTOSIS 2+; MACROCYTOSIS 2+; PLATELET ESTIMATE NORMAL
--- NOTE | 2019-05-18 07:21 | PN ---
Physical Exam: SUBJECTIVE: Patient seen and examined in ICU Patient sedated on vent. Had temp 101.4 last night. OBJECTIVE: Vital Signs Period Temp Pulse Resp BP Sys/Booth Pulse Ox Last 24 Hr 99 F-101.4 F 93-111 14-25 100-132/55-69 100-100 GENERAL: S/p tracheostomy ventilated, sedated HEAD: Normal with no signs of trauma. EYES: sclera anicteric, conjunctiva clear. No ptosis. ENT: Ears normal, nares patent, moist mucous membranes. NGT ~60cm at nares NECK: Trachea midline, full range of motion, supple. LUNGS: Coarse b/l BS to auscultation bilaterally. Vent 500, 14, 5, 35% HEART: tachycardic and regular rhythm, S1, S2 without murmur, rub or gallop. ABDOMEN: Soft, nontender, nondistended, hypoactive bowel sounds, surgical dressings overlying mid abd without purulence or signs of infection. ASHLEY with thin white drainage, midline surgical wound with WTD dressing in place : mild scrotum edema EXTREMITIES: 2+ pulses, warm, well-perfused, improving peripheral edema. NEUROLOGICAL: unresponsive, does not follow commands, eyes are occasionally tracking motions; blink response to threat, withdrawing to painful stimuli; on Fentanyl gtt SKIN: Warm, dry, normal turgor, no rashes or lesions noted, edema Laboratory Results - last 24 hr 05/17/19 05/17/19 05/17/19 05:45 11:29 16:41 WBC RBC Hgb Hct MCV MCH MCHC RDW Plt Count MPV Absolute Neuts (auto) Neutrophils % Neutrophils % (Manual) Band Neutrophils % Lymphocytes % Lymphocytes % (Manual) Monocytes % Monocytes % (Manual) Eosinophils % Eosinophils % (Manual) Basophils % Basophils % (Manual) Myelocytes % (Man) Promyelocytes % (Man) Blast Cells % (Manual) Nucleated RBC % Metamyelocytes Hypochromia Platelet Estimate Polychromasia Poikilocytosis Anisocytosis Microcytosis Macrocytosis Sodium 144 Potassium 3.9 Chloride 116 H Carbon Dioxide 27 Anion Gap 1 L BUN 107.1 H* Creatinine 2.3 H Est GFR (CKD-EPI)AfAm 33.53 Est GFR (CKD-EPI)NonAf 28.93 POC Glucometer 196 180 Random Glucose 200 H Calcium 7.6 L Phosphorus 5.0 H Magnesium 1.9 Total Bilirubin 2.1 H AST 87 H ALT 55 Alkaline Phosphatase 83 Total Protein 5.5 L Albumin 1.2 L Triglycerides 05/18/19 05/18/19 05/18/19 05:20 05:20 05:23 WBC 6.5 RBC 2.50 L Hgb 7.4 L Hct 22.1 L MCV 88.5 MCH 29.6 MCHC 33.5 RDW 20.7 H Plt Count 182 MPV 11.3 H Absolute Neuts (auto) 3.0 Neutrophils % 46.4 Neutrophils % (Manual) 51.0 Band Neutrophils % 1.0 Lymphocytes % 23.2 Lymphocytes % (Manual) 17.0 D Monocytes % 14.8 H Monocytes % (Manual) 13 H D Eosinophils % 13.3 H Eosinophils % (Manual) 13.0 H D Basophils % 2.3 H Basophils % (Manual) 2.0 D Myelocytes % (Man) 0 D Promyelocytes % (Man) 0 D Blast Cells % (Manual) 0 Nucleated RBC % 1 H Metamyelocytes 0 Hypochromia 2+ Platelet Estimate Normal Polychromasia 1+ Poikilocytosis 0 Anisocytosis 2+ Microcytosis 1+ Macrocytosis 2+ Sodium 147 H Potassium 3.6 Chloride 114 H Carbon Dioxide 28 Anion Gap 5 L BUN 98.5 H Creatinine 2.0 H Est GFR (CKD-EPI)AfAm 39.70 Est GFR (CKD-EPI)NonAf 34.25 POC Glucometer 198 Random Glucose 206 H Calcium 7.8 L Phosphorus 3.8 Magnesium 2.0 Total Bilirubin 1.8 H AST 74 H ALT 52 Alkaline Phosphatase 83 Total Protein 5.9 L Albumin 1.2 L Triglycerides 178 H Active Medications Generic Name Dose Route Start Last Admin Trade Name Freq PRN Reason Stop Dose Admin Acetaminophen 1,000 mg 05/15/19 21:58 05/17/19 20:43 Ofirmev Injection - IVPB 1,000 mg Q6H PRN Administration FEVER Furosemide 60 mg 05/12/19 10:00 05/17/19 09:44 Lasix Injection - IVPUSH 60 mg DAILY MARYSE Administration Heparin Sodium (Porcine) 5,000 unit 05/02/19 22:00 05/18/19 06:05 Heparin - SQ 5,000 unit TID MARYSE Administration Meropenem 1 gm/ Dextrose 100 mls @ 100 mls/hr 05/12/19 06:00 05/18/19 06:07 IVPB 100 mls/hr Q12H MARYSE Administration Fentanyl 500 mcg/ Dextrose 100 mls @ 10 mls/hr 05/12/19 09:00 05/17/19 19:00 IVPB 25 mcg/hr TITR MARYSE 5 mls/hr Titration Protocol 50 MCG/HR Pantoprazole Sodium 80 mg/ 100 mls @ 10 mls/hr 05/16/19 15:45 05/17/19 23:14 Sodium Chloride IVPB 05/19/19 15:37 10 mls/hr Q10H MARYSE Administration 8 MG/HR Fat Emulsion-Soy/MCT/[place]/Fish Oil 250 mls @ 20.833 mls/hr 05/17/19 22:00 05/17/19 21:16 Smoflipid 20% Iv Fat Emulsion IV 20.833 mls/hr DAILY@2200 MARYSE Administration Insulin Human Regular 75 units 1,800 mls @ 75 mls/hr 05/17/19 16:00 05/17/19 16:15 / Folic Acid 1 mg/ IV 75 mls/hr Multivitamins/Minerals 10 ml/ DAILY@1600 MARYSE Administration Thiamine HCl 100 mg/ Magnesium Sulfate 0.985 gm/ Sterile Water/ Amino Acids/ Dextrose Insulin Aspart 1 vial 05/01/19 07:00 05/18/19 06:06 Novolog Vial Sliding Scale - SQ 2 units TIDAC MARYSE Administration Protocol Ondansetron HCl 4 mg 04/30/19 16:45 Zofran Injection IVPUSH Q6H PRN NAUSEA AND/OR VOMITING CBC, BMP 05/18/19 05:20 05/18/19 05:20 ASSESSMENT/PLAN: This is a 64 year old man with a history of MR, HTN, type 2 DM who presented to the ED from [place] with lethargy, hypotension, and tachycardia. #Septic shock and acute hypoxic respiratory failure secondary to peritonitis from perforated duodenal ulcer - s/p exploratory laparotomy, rohan patch repair, lavage, retro-rectus block 04/30 - Maintain NG tube - Continue meropenem - Continue Protonix IV - Off pressors - s/p percutaneous tracheostomy 05/14 - Vent management per ICU team # Acute kidney injury - Improving # Hepatic transaminitis - Likely secondary to shock/hypotension - Improving # Hypernatremia - Continue free water via NGT - Continue to monitor electrolytes # Hyperkalemia - Improved # Hyponatremia secondary to volume overload - Hyponatremia improved - Continue Lasix #Anemia - Hgb stable #Thrombocytopenia - Improved #HTN - Continue Lasix # Type 2 DM - Continue insulin in TPN, Novolog sliding scale # Mental retardation # Nutrition - Continue TPN 3 DVT prophylaxis - Continue heparin subq Visit type - Emergency Visit Emergency Visit: Yes ED Registration Date: 04/30/19 Care time: The patient presented to the Emergency Department on the above date and was hospitalized for further evaluation of their emergent condition. - New Patient This patient is new to me today: No - Critical Care Critical Care patient: Yes Total Critical Care Time (in minutes): 45 Critical Care Statement: The care of this patient involved high complexity decision making to prevent further life threatening deterioration of the patient's condition and/or to evaluate & treat vital organ system(s) failure or risk of failure. ATTENDING PHYSICIAN STATEMENT I saw and evaluated the patient. I reviewed the resident's note and discussed the case with the resident. I agree with the resident's findings and plan as documented. SUBJECTIVE: OBJECTIVE: ASSESSMENT AND PLAN:
--- NOTE | 2019-05-18 08:58 | PN ---
Progress Note (short form) - Note Progress Note: chills continue, intermittent fevers continue s/p trach yesterday on TPN Vital Signs Period Temp Pulse Resp BP Sys/Booth Pulse Ox Last 24 Hr 99 F-101.4 F 93-111 15-25 100-132/55-69 100-100 trach to vent opens eyes cor-rrr lungs decreased bs at bases abd soft, +ASHLEY drain- minimal clear yellow drainage, no longer looks like tube feeds ext trace edema +demarco CBC, BMP 05/18/19 05:20 05/18/19 05:20 Microbiology 05/11/19 09:50 Blood - Peripheral Venous Blood Culture - Final NO GROWTH AFTER 5 DAYS INCUBATION 05/11/19 09:45 Blood - Peripheral Venous Blood Culture - Final NO GROWTH AFTER 5 DAYS INCUBATION 05/08/19 05:55 Blood - Peripheral Venous Blood Culture - Final NO GROWTH AFTER 5 DAYS INCUBATION 05/08/19 05:50 Blood - Peripheral Venous Blood Culture - Final NO GROWTH AFTER 5 DAYS INCUBATION 04/30/19 09:00 Blood - Peripheral Venous Blood Culture - Final NO GROWTH AFTER 5 DAYS INCUBATION 04/30/19 09:00 Blood - Peripheral Venous Blood Culture - Final NO GROWTH AFTER 5 DAYS INCUBATION 04/30/19 14:28 Body Fluid - Other Gram Stain - Final 04/30/19 14:28 Body Fluid - Other Body Fluid Culture - Final NO GROWTH OF AEROBIC ORGANISMS AFTER 48 HOURS INCUBATION 04/30/19 14:28 Body Fluid - Other Anaerobic Culture - Final NO ANAEROBES WERE ISOLATED 04/30/19 14:38 Abdomen Gram Stain - Final 04/30/19 12:30 Urine - Urine Clean Catch Urine Culture - Final NO GROWTH OBTAINED a/p +anastomatic Leak- feeds off, ct scan 05/15 with air leak, no collection s/p trach continue meropenem -had thrombocytopenia while on zosyn POD #18 -remain intubated, remains unresponsive off sedation sepsis secondary to perforated viscus respiratory failure- remains intubated , s/p trach for repeat abd/pelvis CT in next 24-48 hours-r/o collection domenic persistent d/w ICU team Problem List - Problems (1) Sepsis Code(s): A41.9 - SEPSIS, UNSPECIFIED ORGANISM (2) Bowel perforation Code(s): K63.1 - PERFORATION OF INTESTINE (NONTRAUMATIC) (3) DOMENIC (acute kidney injury) Code(s): N17.9 - ACUTE KIDNEY FAILURE, UNSPECIFIED (4) Shock liver Code(s): K72.00 - ACUTE AND SUBACUTE HEPATIC FAILURE WITHOUT COMA
[2019-05-18] MEDS: FENTANYL INJECTION 500 MCG in DEXTROSE 5%-WATER - 90 ML IVPB SCH (09:00)
[2019-05-18] MEDS: FUROSEMIDE 40 MG/4 ML INJECTABLE VIAL IVPUSH SCH (09:14)
[2019-05-18] MEDS: PANTOPRAZOLE SODIUM 80 MG in SODIUM CHLORIDE 100 ML IVPB SCH ×2 (11:00→19:00)
--- NOTE | 2019-05-18 11:29 | PN ---
Teaching Attending Note Name of Resident: Vidal Aguilar ATTENDING PHYSICIAN STATEMENT I saw and evaluated the patient. I reviewed the resident's note and discussed the case with the resident. I agree with the resident's findings and plan as documented. SUBJECTIVE: Patient sedated on vent. Had temp 101.4 last night. OBJECTIVE: Vital Signs Period Temp Pulse Resp BP Sys/Booth Pulse Ox Last 24 Hr 99.6 F-101.4 F 93-113 15-25 100-139/55-71 100-100 HEART: S1S2, tachycardic LUNGS: Ventilated BS ABDOMEN: Obese, soft, non-distended, normal BS EXTREMITIES: 1+ edema Laboratory Results - last 24 hr 05/17/19 05/17/19 05/18/19 11:29 16:41 05:20 WBC RBC Hgb Hct MCV MCH MCHC RDW Plt Count MPV Absolute Neuts (auto) Neutrophils % Neutrophils % (Manual) Band Neutrophils % Lymphocytes % Lymphocytes % (Manual) Monocytes % Monocytes % (Manual) Eosinophils % Eosinophils % (Manual) Basophils % Basophils % (Manual) Myelocytes % (Man) Promyelocytes % (Man) Blast Cells % (Manual) Nucleated RBC % Metamyelocytes Hypochromia Platelet Estimate Polychromasia Poikilocytosis Anisocytosis Microcytosis Macrocytosis Sodium 147 H Potassium 3.6 Chloride 114 H Carbon Dioxide 28 Anion Gap 5 L BUN 98.5 H Creatinine 2.0 H Est GFR (CKD-EPI)AfAm 39.70 Est GFR (CKD-EPI)NonAf 34.25 POC Glucometer 196 180 Random Glucose 206 H Calcium 7.8 L Phosphorus 3.8 Magnesium 2.0 Total Bilirubin 1.8 H AST 74 H ALT 52 Alkaline Phosphatase 83 Total Protein 5.9 L Albumin 1.2 L Triglycerides 178 H 05/18/19 05/18/19 05:20 05:23 WBC 6.5 RBC 2.50 L Hgb 7.4 L Hct 22.1 L MCV 88.5 MCH 29.6 MCHC 33.5 RDW 20.7 H Plt Count 182 MPV 11.3 H Absolute Neuts (auto) 3.0 Neutrophils % 46.4 Neutrophils % (Manual) 51.0 Band Neutrophils % 1.0 Lymphocytes % 23.2 Lymphocytes % (Manual) 17.0 D Monocytes % 14.8 H Monocytes % (Manual) 13 H D Eosinophils % 13.3 H Eosinophils % (Manual) 13.0 H D Basophils % 2.3 H Basophils % (Manual) 2.0 D Myelocytes % (Man) 0 D Promyelocytes % (Man) 0 D Blast Cells % (Manual) 0 Nucleated RBC % 1 H Metamyelocytes 0 Hypochromia 2+ Platelet Estimate Normal Polychromasia 1+ Poikilocytosis 0 Anisocytosis 2+ Microcytosis 1+ Macrocytosis 2+ Sodium Potassium Chloride Carbon Dioxide Anion Gap BUN Creatinine Est GFR (CKD-EPI)AfAm Est GFR (CKD-EPI)NonAf POC Glucometer 198 Random Glucose Calcium Phosphorus Magnesium Total Bilirubin AST ALT Alkaline Phosphatase Total Protein Albumin Triglycerides Current Medications Generic Name Dose Route Start Last Admin Trade Name Freq PRN Reason Stop Dose Admin Acetaminophen 1,000 mg 05/15/19 21:58 05/17/19 20:43 Ofirmev Injection - IVPB 1,000 mg Q6H PRN Administration FEVER Furosemide 60 mg 05/12/19 10:00 05/18/19 09:14 Lasix Injection - IVPUSH 60 mg DAILY MARYSE Administration Heparin Sodium (Porcine) 5,000 unit 05/02/19 22:00 05/18/19 06:05 Heparin - SQ 5,000 unit TID MARYSE Administration Meropenem 1 gm/ Dextrose 100 mls @ 100 mls/hr 05/12/19 06:00 05/18/19 06:07 IVPB 100 mls/hr Q12H MARYSE Administration Fentanyl 500 mcg/ Dextrose 100 mls @ 10 mls/hr 05/12/19 09:00 05/18/19 09:00 IVPB 25 mcg/hr TITR MARYSE 5 mls/hr Administration Protocol 50 MCG/HR Pantoprazole Sodium 80 mg/ 100 mls @ 10 mls/hr 05/16/19 15:45 05/17/19 23:14 Sodium Chloride IVPB 05/19/19 15:37 10 mls/hr Q10H MARYSE Administration 8 MG/HR Fat Emulsion-Soy/MCT/[place]/Fish Oil 250 mls @ 20.833 mls/hr 05/17/19 22:00 21:16 Smoflipid 20% Iv Fat Emulsion IV 20.833 mls/hr DAILY@2200 MARYSE Administration Insulin Human Regular 75 units 1,800 mls @ 75 mls/hr 05/17/19 16:00 05/17/19 16:15 / Folic Acid 1 mg/ IV 75 mls/hr Multivitamins/Minerals 10 ml/ DAILY@1600 MARYSE Administration Thiamine HCl 100 mg/ Magnesium Sulfate 0.985 gm/ Sterile Water/ Amino Acids/ Dextrose Insulin Aspart 1 vial 05/01/19 07:00 05/18/19 06:06 Novolog Vial Sliding Scale - SQ 2 units TIDAC MARYSE Administration Protocol Ondansetron HCl 4 mg 04/30/19 16:45 Zofran Injection IVPUSH Q6H PRN NAUSEA AND/OR VOMITING ASSESSMENT AND PLAN: This is a 64 year old man with a history of MR, HTN, type 2 DM who presented to the ED from [place] with lethargy, hypotension, and tachycardia. 1. Septic shock and acute hypoxic respiratory failure secondary to peritonitis from perforated duodenal ulcer - s/p exploratory laparotomy, rohan patch repair, lavage, retro-rectus block 04/30 - Maintain NG tube - Continue meropenem - Continue Protonix IV - Off pressors - s/p percutaneous tracheostomy 05/14 - Vent management per ICU team 2. Acute kidney injury - Improving 3. Hepatic transaminitis - Likely secondary to shock/hypotension - Improving 4. Hypernatremia - Continue free water via NGT - Continue to monitor electrolytes 5. Hyperkalemia - Improved 6. Hyponatremia secondary to volume overload - Hyponatremia improved - Continue Lasix 7. Anemia - Hgb stable 8. Thrombocytopenia - Improved 9. HTN - Continue Lasix 10. Type 2 DM - Continue insulin in TPN, Novolog sliding scale 11. Mental retardation 12. Nutrition - Continue TPN 13. DVT prophylaxis - Continue heparin subq
--- NOTE | 2019-05-18 12:22 | PN ---
Teaching Attending Note Name of Resident: Karla Billingsley ATTENDING PHYSICIAN STATEMENT I saw and evaluated the patient. I reviewed the resident's note and discussed the case with the resident. I agree with the resident's findings and plan as documented. SUBJECTIVE: Pt seen and examined in the ICU. Remains vented, sedated. Fevers persist but no pressors. OBJECTIVE: Vital Signs Period Temp Pulse Resp BP Sys/Booth Pulse Ox Last 24 Hr 99.6 F-101.4 F 93-113 15-25 100-139/55-71 100-100 Intake & Output 05/15/19 05/16/19 05/17/19 05/18/19 23:59 23:59 23:59 23:59 Intake Total 1100 2410 1277.5 Output Total 1610 1460 770 Balance -510 950 507.5 Weight 90.991 kg 91.263 kg 89.131 kg 88.042 kg Gen: vented, sedated Heart: tachycardic, regular Lung: decreased breath sounds at the bases Abd: soft, nontender Ext: less edema CBC, BMP 05/18/19 05:20 05/18/19 05:20 Active Medications Acetaminophen (Ofirmev Injection -) 1,000 mg IVPB Q6H PRN PRN Reason: FEVER Last Admin: 05/17/19 20:43 Dose: 1,000 mg Furosemide (Lasix Injection -) 60 mg IVPUSH DAILY [facility] Last Admin: 05/18/19 09:14 Dose: 60 mg Heparin Sodium (Porcine) (Heparin -) 5,000 unit SQ TID [facility] Last Admin: 05/18/19 06:05 Dose: 5,000 unit Meropenem 1 gm/ Dextrose 100 mls @ 100 mls/hr IVPB Q12H [facility] Last Admin: 05/18/19 06:07 Dose: 100 mls/hr Fentanyl 500 mcg/ Dextrose 100 mls @ 10 mls/hr IVPB TITR MARYSE; Protocol Last Admin: 05/18/19 09:00 Dose: 25 mcg/hr, 5 mls/hr Pantoprazole Sodium 80 mg/ (Sodium Chloride) 100 mls @ 10 mls/hr IVPB Q10H MARYSE Stop: 05/19/19 15:37 Last Admin: 05/18/19 11:00 Dose: 10 mls/hr Fat Emulsion-Soy/MCT/[place]/Fish Oil (Smoflipid 20% Iv Fat Emulsion) 250 mls @ 20.833 mls/hr IV DAILY@2200 [facility] Last Admin: 05/17/19 21:16 Dose: 20.833 mls/hr Insulin Human Regular 75 units / Folic Acid 1 mg/Multivitamins/Minerals 10 ml/ Thiamine HCl 100 mg/ Magnesium Sulfate 0.985 gm/ Sterile Water/ Amino Acids/ Dextrose 1,800 mls @ 75 mls/hr IV DAILY@1600 [facility] Last Admin: 05/17/19 16:15 Dose: 75 mls/hr Insulin Aspart (Novolog Vial Sliding Scale -) 1 vial SQ TIDAC [facility]; Protocol Last Admin: 05/18/19 11:36 Dose: 4 units Ondansetron HCl (Zofran Injection) 4 mg IVPUSH Q6H PRN PRN Reason: NAUSEA AND/OR VOMITING ASSESSMENT AND PLAN: Acute Hypoxic Respiratory Failure Perforated Duodenal Ulcer s/p Ex-lap/Jack Patch Repair Peritonitis Septic Shock resolving Acute Kidney Injury Elevated LFTs likely Ischemic Injury Hyponatremia Volume Overload Anemia Thrombocytopenia Mental Retardation HTN DM - continue antibiotics, antifungals per ID - imaging per surgery - monitor drain output - protonix - continue TPN - continue lasix - monitor urine output, creatinine - DVT/GI prophylaxis - Monitor off Lasix - LTAC evaluation
--- NOTE | 2019-05-18 12:52 | PN ---
Progress Note, Physician History of Present Illness: Pt seen and examined at bedside. He remains in the ICU. He remains on TPN. - Current Medication List Current Medications: Active Medications Acetaminophen (Ofirmev Injection -) 1,000 mg IVPB Q6H PRN PRN Reason: FEVER Last Admin: 05/17/19 20:43 Dose: 1,000 mg Furosemide (Lasix Injection -) 60 mg IVPUSH DAILY [facility] Last Admin: 05/18/19 09:14 Dose: 60 mg Heparin Sodium (Porcine) (Heparin -) 5,000 unit SQ TID [facility] Last Admin: 05/18/19 06:05 Dose: 5,000 unit Meropenem 1 gm/ Dextrose 100 mls @ 100 mls/hr IVPB Q12H [facility] Last Admin: 05/18/19 06:07 Dose: 100 mls/hr Fentanyl 500 mcg/ Dextrose 100 mls @ 10 mls/hr IVPB TITR [facility]; Protocol Last Admin: 05/18/19 09:00 Dose: 25 mcg/hr, 5 mls/hr Pantoprazole Sodium 80 mg/ (Sodium Chloride) 100 mls @ 10 mls/hr IVPB Q10H [facility] Stop: 05/19/19 15:37 Last Admin: 05/18/19 11:00 Dose: 10 mls/hr Fat Emulsion-Soy/MCT/[place]/Fish Oil (Smoflipid 20% Iv Fat Emulsion) 250 mls @ 20.833 mls/hr IV DAILY@2200 [facility] Last Admin: 05/17/19 21:16 Dose: 20.833 mls/hr Insulin Human Regular 75 units / Folic Acid 1 mg/Multivitamins/Minerals 10 ml/ Thiamine HCl 100 mg/ Magnesium Sulfate 0.985 gm/ Sterile Water/ Amino Acids/ Dextrose 1,800 mls @ 75 mls/hr IV DAILY@1600 [facility] Last Admin: 05/17/19 16:15 Dose: 75 mls/hr Insulin Aspart (Novolog Vial Sliding Scale -) 1 vial SQ TIDAC [facility]; Protocol Last Admin: 05/18/19 11:36 Dose: 4 units Ondansetron HCl (Zofran Injection) 4 mg IVPUSH Q6H PRN PRN Reason: NAUSEA AND/OR VOMITING - Objective Vital Signs: Vital Signs Temperature 99.6 F 05/18/19 08:00 Pulse Rate 110 H 05/18/19 10:00 Respiratory Rate 15 05/18/19 11:30 Blood Pressure 136/64 05/18/19 10:00 O2 Sat by Pulse Oximetry (%) 100 05/18/19 11:30 Constitutional: Yes: Calm Neck: Yes: Other (trache) Cardiovascular: Yes: S1, S2 Respiratory: Yes: Mechanically Ventilated Gastrointestinal: Yes: Soft Genitourinary: Yes: Banuelos Present Musculoskeletal: Yes: Muscle Weakness Edema: Yes Edema: LUE: Trace, RUE: Trace, LLE: 1+, RLE: 1+ Neurological: Yes: Lethargy Labs: CBC, BMP 05/18/19 05:20 05/18/19 05:20 INR, PTT INR 1.36 (0.83-1.09) H 05/05/19 05:00 Fibrinogen 443.0 mg/dL (238-498) 05/05/19 05:00 Assessment/Plan Current Medications Generic Name Dose Route Start Last Admin Trade Name Freq PRN Reason Stop Dose Admin Acetaminophen 1,000 mg 05/15/19 21:58 05/17/19 20:43 Ofirmev Injection - IVPB 1,000 mg Q6H PRN Administration FEVER Furosemide 60 mg 05/12/19 10:00 05/18/19 09:14 Lasix Injection - IVPUSH 60 mg DAILY MARYSE Administration Heparin Sodium (Porcine) 5,000 unit 05/02/19 22:00 05/18/19 06:05 Heparin - SQ 5,000 unit TID MARYSE Administration Meropenem 1 gm/ Dextrose 100 mls @ 100 mls/hr 05/12/19 06:00 05/18/19 06:07 IVPB 100 mls/hr Q12H MARYSE Administration Fentanyl 500 mcg/ Dextrose 100 mls @ 10 mls/hr 05/12/19 09:00 05/18/19 09:00 IVPB 25 mcg/hr TITR MARYSE 5 mls/hr Administration Protocol 50 MCG/HR Pantoprazole Sodium 80 mg/ 100 mls @ 10 mls/hr 05/16/19 15:45 05/18/19 11:00 Sodium Chloride IVPB 05/19/19 15:37 10 mls/hr Q10H MARYSE Administration 8 MG/HR Fat Emulsion-Soy/MCT/[place]/Fish Oil 250 mls @ 20.833 mls/hr 05/17/19 22:00 21:16 Smoflipid 20% Iv Fat Emulsion IV 20.833 mls/hr DAILY@2200 MARYSE Administration Insulin Human Regular 75 units 1,800 mls @ 75 mls/hr 05/17/19 16:00 05/17/19 16:15 / Folic Acid 1 mg/ IV 75 mls/hr Multivitamins/Minerals 10 ml/ DAILY@1600 MARYSE Administration Thiamine HCl 100 mg/ Magnesium Sulfate 0.985 gm/ Sterile Water/ Amino Acids/ Dextrose Insulin Aspart 1 vial 05/01/19 07:00 05/18/19 11:36 Novolog Vial Sliding Scale - SQ 4 units TIDAC MARYSE Administration Protocol Ondansetron HCl 4 mg 04/30/19 16:45 Zofran Injection IVPUSH Q6H PRN NAUSEA AND/OR VOMITING IMPRESSION DOMENIC septic shock perforated duodenal ulcer fluid overload MR DM possible ckd transamitis hyperkalemia hyponatremia PLAN - cont tpn - monitor lytes - renal function is improving - bun improving, partly elevated from tpn - lasix prn for edema - cont vent support - monitor sodium as it is starting to rise - edema in part also from 3rd spacing
[2019-05-18 13:21] VITALS: BMI 31.3
--- NOTE | 2019-05-18 15:36 | PN ---
Physical Exam: SUBJECTIVE: Patient seen and examined Tmax 101 overnight and received tylenol. No other overnight events. OBJECTIVE: Vital Signs Period Temp Pulse Resp BP Sys/Booth Pulse Ox Last 24 Hr 99.6 F-101.4 F 93-116 15-25 100-139/56-71 100-100 GENERAL: S/p tracheostomy ventilated, sedated HEAD: Normal with no signs of trauma. EYES: sclera anicteric, conjunctiva clear. No ptosis. ENT: Ears normal, nares patent, moist mucous membranes. NGT ~60cm at nares NECK: Trachea midline, full range of motion, supple. LUNGS: Coarse b/l BS to auscultation bilaterally. Vent 500, 14, 5, 35% HEART: tachycardic and regular rhythm, S1, S2 without murmur, rub or gallop. ABDOMEN: Soft, nontender, nondistended, hypoactive bowel sounds, surgical dressings overlying mid abd without purulence or signs of infection. ASHLEY with thin white drainage, midline surgical wound with WTD dressing in place : mild scrotum edema EXTREMITIES: 2+ pulses, warm, well-perfused, improving peripheral edema. NEUROLOGICAL: unresponsive, does not follow commands, eyes are occasionally tracking motions; blink response to threat, withdrawing to painful stimuli; on Fentanyl gtt SKIN: Warm, dry, normal turgor, no rashes or lesions noted, edema Laboratory Results - last 24 hr CBC, BMP 05/18/19 05:20 05/18/19 05:20 Active Medications Generic Name Dose Route Start Last Admin Trade Name Freq PRN Reason Stop Dose Admin Acetaminophen 1,000 mg 05/15/19 21:58 05/17/19 20:43 Ofirmev Injection - IVPB 1,000 mg Q6H PRN Administration FEVER Furosemide 60 mg 05/12/19 10:00 05/18/19 09:14 Lasix Injection - IVPUSH 60 mg DAILY MARYSE Administration Heparin Sodium (Porcine) 5,000 unit 05/02/19 22:00 05/18/19 13:33 Heparin - SQ 5,000 unit TID MARYSE Administration Meropenem 1 gm/ Dextrose 100 mls @ 100 mls/hr 05/12/19 06:00 05/18/19 06:07 IVPB 100 mls/hr Q12H MARYSE Administration Fentanyl 500 mcg/ Dextrose 100 mls @ 10 mls/hr 05/12/19 09:00 05/18/19 09:00 IVPB 25 mcg/hr TITR MARYSE 5 mls/hr Administration Protocol 50 MCG/HR Pantoprazole Sodium 80 mg/ 100 mls @ 10 mls/hr 05/16/19 15:45 05/18/19 11:00 Sodium Chloride IVPB 05/19/19 15:37 10 mls/hr Q10H MARYSE Administration 8 MG/HR Fat Emulsion-Soy/MCT/[place]/Fish Oil 250 mls @ 20.833 mls/hr 05/17/19 22:00 05/17/19 21:16 Smoflipid 20% Iv Fat Emulsion IV 20.833 mls/hr DAILY@2200 MARYSE Administration Insulin Human Regular 75 units 1,800 mls @ 75 mls/hr 05/17/19 16:00 05/17/19 16:15 / Folic Acid 1 mg/ IV 75 mls/hr Multivitamins/Minerals 10 ml/ DAILY@1600 MARYSE Administration Thiamine HCl 100 mg/ Magnesium Sulfate 0.985 gm/ Sterile Water/ Amino Acids/ Dextrose Insulin Aspart 1 vial 05/01/19 07:00 05/18/19 11:36 Novolog Vial Sliding Scale - SQ 4 units TIDAC MARYSE Administration Protocol Ondansetron HCl 4 mg 04/30/19 16:45 Zofran Injection IVPUSH Q6H PRN NAUSEA AND/OR VOMITING ASSESSMENT/PLAN: Patient is a 64 year old male with PMH of MR, HTN, DM, b/l LE swelling who was BIBEMS for a 1 day h/o Hypotension (70/51), lethargy and tachycardia, found to have free air under the diaphragm s/p omental patch for duodenal perforation POD18. Post-op admission to ICU intubated for HD monitoring. Neuro -uremia -no interactive --possibly 2/2 developmental delay vs uremia vs sedation -no sedation -25mcg q6hr prn for agitations -per Ingram, patient speaks one word sentences and performs some ADLs without assist Pulmonary -Intubated -->s/p tracheostomy(Nicastri, 05/14/19); consented w/ deputy county attorney Mr Vigil -trach site clean and without evidence of bleeding or skin breakdown -Vent: 500, 14, 6, 35%; CPAP as tolerated Cardiovascular -Hypotension --likely 2/2 septic shock ---resolved -Off pressors -CVP goal 8-12 GI -Perforated duodenum --possibly 2/2 freq NSAID usage vs H pylori -Jack Patch leakage --monitor ASHLEY drain outpt -with TF leak currently NPO -Transamnitis --likely shocked liver 2/2 hypotension now stable -CT A/P(05/15/19): -S/p Ex-Lap w/ Jack Patch(Perlita, 04/30/19) -NGT placed surgically. per surgery NGT SHOULD NOT BE REMOVED OR MANIPULATED until 05/28/[address] scan with PO contrast -per surgery no TF as there is a possible leakage of Jack Patch -ASHLEY drain to stay in place per surgery instructions -surgical packing and rik removed; per surgery instruction: irrigate wound with WTD saline and cover with dry dressing daily -repeat CT A/P w/ PO contrast at ~06/03/19 to reevaluate for leak -repeat CT A/P in 5d if fevers persist (05/20/19) -protonix gtt -Abx regimen: s/p flagyl, fluc, ceftr now all DCd; on meropenem as per ID -restarted TPN(05/15/19) Renal -DOMENIC --likely 2/2 cardiorenal syndrome -Cr improving 2.0, BUN 98.5 -Nephro(Lesley) consult: -lasix 60mg QD -Nephro(Jose) consult: -possibly 3rd spacing dt hypoalbuminemia ID -downtrending WBC since surgery, now stable wnl -CTH(05/06/19): neg acute path -CT A/P(05/06/19): free air along the subhepatic space, likely postsurgical -CT A/P(05/13/19): b/l pleural efusion, unchanged small pneumoperitoneum at RUQ near ASHLEY; no abscess -s/p new line and 1g vanc with AM vanc level ordered -on daily meropenem now; continues to spike fever despite radha -Venous Duplex BLE(05/13/19): neg DVT Heme -thrombocytopenia, now resolved -plt stable; H&H stable -HIT panel: negative FEN -TPN -replete lytes prn -NPO until a rpt CT(~06/03/19) shows no anastomotic leak Ppx -Protonix gtt -SQH TID Dispo -ICU monitoring -discharge to LTACH --pending medical clearance Visit type - Emergency Visit Emergency Visit: Yes ED Registration Date: 04/30/19 Care time: The patient presented to the Emergency Department on the above date and was hospitalized for further evaluation of their emergent condition. - New Patient This patient is new to me today: No - Critical Care Critical Care patient: Yes Total Critical Care Time (in minutes): 40 Critical Care Statement: The care of this patient involved high complexity decision making to prevent further life threatening deterioration of the patient's condition and/or to evaluate & treat vital organ system(s) failure or risk of failure. ATTENDING PHYSICIAN STATEMENT I saw and evaluated the patient. I reviewed the resident's note and discussed the case with the resident. I agree with the resident's findings and plan as documented. SUBJECTIVE: OBJECTIVE: ASSESSMENT AND PLAN:
[2019-05-18] MEDS: ACETAMINOPHEN 1000 MG/100 ML VIAL (NON FORMULARY) IVPB PRN (16:13)
[2019-05-18] MEDS ORDERED: PT OWN MED DRAWER 7, Y5N ONE (16:31)
[2019-05-18] MEDS: FOLIC ACID IV SCH (16:34)
[2019-05-18] MEDS: MULTIVIT IV SCH (16:34)
[2019-05-18] MEDS: INSULIN REGULAR IV SCH (16:34)
[2019-05-18] MEDS: [UNRECOGNIZED DRUG - OTHER] IV SCH (16:34)
[2019-05-19] MEDS ORDERED: MEROPENEM 1 GM VIAL (RESTRICTED TO ID) IVPB ONE ×2 (03:26→15:48)
[2019-05-19] MEDS ORDERED: DEXTROSE 5%-WATER 100 ML IVPB ONE ×2 (03:26→15:48)
[2019-05-19] MEDS: PANTOPRAZOLE SODIUM 80 MG in SODIUM CHLORIDE 100 ML IVPB SCH ×2 (05:27→17:16)
[2019-05-19] MEDS: HEPARIN NA (PORCINE) 5,000 UNITS/ML 1ML VIAL SQ SCH ×2 (05:27→15:51)
[2019-05-19] MEDS: MEROPENEM 1 GM in DEXTROSE 5%-WATER 100 ML IVPB SCH ×2 (05:28→17:52)
--- NOTE | 2019-05-19 06:12 | PN ---
Physical Exam: SUBJECTIVE: Pt seen and examined in the ICU. Vented, more awake today. Remains febrile. Placed on CPAP/PS. OBJECTIVE: Vital Signs Period Temp Pulse Resp BP Sys/Booth Pulse Ox Last 24 Hr 99 F-100.9 F 94-116 14-23 91-139/53-73 100-100 GENERAL: S/p tracheostomy ventilated, sedated HEAD: Normal with no signs of trauma. EYES: sclera anicteric, conjunctiva clear. No ptosis. ENT: Ears normal, nares patent, moist mucous membranes. NGT ~60cm at nares NECK: Trachea midline, full range of motion, supple. LUNGS: Coarse b/l BS to auscultation bilaterally. Vent 500, 14, 5, 35% HEART: tachycardic and regular rhythm, S1, S2 without murmur, rub or gallop. ABDOMEN: Soft, nontender, nondistended, hypoactive bowel sounds, surgical dressings overlying mid abd without purulence or signs of infection. ASHLEY with thin white drainage, midline surgical wound with WTD dressing in place : mild scrotum edema EXTREMITIES: 2+ pulses, warm, well-perfused, improving peripheral edema. NEUROLOGICAL: unresponsive, does not follow commands, eyes are occasionally tracking motions; blink response to threat, withdrawing to painful stimuli; on Fentanyl gtt SKIN: Warm, dry, normal turgor, no rashes or lesions noted, edema Laboratory Results - last 24 hr 05/18/19 05/18/19 05/18/19 05:20 05:20 11:32 Neutrophils % (Manual) 51.0 Band Neutrophils % 1.0 Lymphocytes % (Manual) 17.0 D Monocytes % (Manual) 13 H D Eosinophils % (Manual) 13.0 H D Basophils % (Manual) 2.0 D Myelocytes % (Man) 0 D Promyelocytes % (Man) 0 D Blast Cells % (Manual) 0 Nucleated RBC % 1 H Metamyelocytes 0 Hypochromia 2+ Platelet Estimate Normal Polychromasia 1+ Poikilocytosis 0 Anisocytosis 2+ Microcytosis 1+ Macrocytosis 2+ Sodium 147 H Potassium 3.6 Chloride 114 H Carbon Dioxide 28 Anion Gap 5 L BUN 98.5 H Creatinine 2.0 H Est GFR (CKD-EPI)AfAm 39.70 Est GFR (CKD-EPI)NonAf 34.25 POC Glucometer 236 Random Glucose 206 H Calcium 7.8 L Phosphorus 3.8 Magnesium 2.0 Total Bilirubin 1.8 H AST 74 H ALT 52 Alkaline Phosphatase 83 Total Protein 5.9 L Albumin 1.2 L Triglycerides 178 H 05/18/19 05/18/19 05/19/19 16:10 20:58 05:47 Neutrophils % (Manual) Band Neutrophils % Lymphocytes % (Manual) Monocytes % (Manual) Eosinophils % (Manual) Basophils % (Manual) Myelocytes % (Man) Promyelocytes % (Man) Blast Cells % (Manual) Nucleated RBC % Metamyelocytes Hypochromia Platelet Estimate Polychromasia Poikilocytosis Anisocytosis Microcytosis Macrocytosis Sodium Potassium Chloride Carbon Dioxide Anion Gap BUN Creatinine Est GFR (CKD-EPI)AfAm Est GFR (CKD-EPI)NonAf POC Glucometer 202 167 155 Random Glucose Calcium Phosphorus Magnesium Total Bilirubin AST ALT Alkaline Phosphatase Total Protein Albumin Triglycerides Active Medications Generic Name Dose Route Start Last Admin Trade Name Freq PRN Reason Stop Dose Admin Acetaminophen 1,000 mg 05/15/19 21:58 05/18/19 16:13 Ofirmev Injection - IVPB 1,000 mg Q6H PRN Administration FEVER Fentanyl 25 mcg 05/18/19 15:08 Sublimaze Injection - IVPUSH 05/19/19 15:14 Q6H PRN AGITATION Furosemide 60 mg 05/12/19 10:00 05/18/19 09:14 Lasix Injection - IVPUSH 60 mg DAILY MARYSE Administration Heparin Sodium (Porcine) 5,000 unit 05/02/19 22:00 05/19/19 05:27 Heparin - SQ 5,000 unit TID MARYSE Administration Meropenem 1 gm/ Dextrose 100 mls @ 100 mls/hr 05/12/19 06:00 05/19/19 05:28 IVPB 100 mls/hr Q12H MARYSE Administration Pantoprazole Sodium 80 mg/ 100 mls @ 10 mls/hr 05/16/19 15:45 05/19/19 05:27 Sodium Chloride IVPB 05/19/19 15:37 Not Given Q10H MARYSE 8 MG/HR Insulin Human Regular 75 units 1,800 mls @ 75 mls/hr 05/18/19 16:00 05/18/19 16:34 / Folic Acid 1 mg/ IV 75 mls/hr Multivitamins/Minerals 10 ml/ DAILY@1600 MARYSE Administration Thiamine HCl 100 mg/ Magnesium Sulfate 0.985 gm/ Potassium Chloride 60 meq/ Calcium Gluconate 2,000 mg/ Chromium/ Copper/[place]/Zinc 1 ml/ Sterile Water/ Amino Acids/ Dextrose Insulin Aspart 1 vial 05/01/19 07:00 05/18/19 16:13 Novolog Vial Sliding Scale - SQ 4 units TIDAC MARYSE Administration Protocol Ondansetron HCl 4 mg 04/30/19 16:45 Zofran Injection IVPUSH Q6H PRN NAUSEA AND/OR VOMITING ASSESSMENT/PLAN: Patient is a 64 year old male with PMH of MR, HTN, DM, b/l LE swelling who was BIBEMS for a 1 day h/o Hypotension (70/51), lethargy and tachycardia, found to have free air under the diaphragm s/p omental patch for duodenal perforation POD18. Post-op admission to ICU intubated for HD monitoring. Neuro -uremia -no interactive --possibly 2/2 developmental delay vs uremia vs sedation -no sedation -25mcg q6hr prn for agitations -per Juan Jose, patient speaks one word sentences and performs some ADLs without assist Pulmonary -Intubated -->s/p tracheostomy(Sarmadastri, 05/14/19); consented w/ district attorney Mr Vigil -trach site clean and without evidence of bleeding or skin breakdown -Vent: 500, 14, 6, 35%; CPAP as tolerated Cardiovascular -Hypotension --likely 2/2 septic shock ---resolved -Off pressors -CVP goal 8-12 GI -Perforated duodenum --possibly 2/2 freq NSAID usage vs H pylori -Jack Patch leakage --monitor ASHLEY drain outpt -with TF leak currently NPO -Transamnitis --likely shocked liver 2/2 hypotension now stable -CT A/P(05/15/19): -S/p Ex-Lap w/ Jack Patch(Perlita, 04/30/19) -NGT placed surgically. per surgery NGT SHOULD NOT BE REMOVED OR MANIPULATED until 05/28/[address] scan with PO contrast -per surgery no TF as there is a possible leakage of Jack Patch -ASHLEY drain to stay in place per surgery instructions -surgical packing and rik removed; per surgery instruction: irrigate wound with WTD saline and cover with dry dressing daily -repeat CT A/P w/ PO contrast at ~06/03/19 to reevaluate for leak -repeat CT A/P in 5d if fevers persist (05/20/19) -protonix gtt -Abx regimen: s/p flagyl, fluc, ceftr now all DCd; on meropenem as per ID -restarted TPN(05/15/19) Renal -DOMENIC --likely 2/2 cardiorenal syndrome -Cr improving 2.0, BUN 98.5 -[facility] consult: -lasix 60mg QD -Nephro(Jose) consult: -possibly 3rd spacing dt hypoalbuminemia ID -downtrending WBC since surgery, now stable wnl -CTH(05/06/19): neg acute path -CT A/P(05/06/19): free air along the subhepatic space, likely postsurgical -CT A/P(05/13/19): b/l pleural efusion, unchanged small pneumoperitoneum at RUQ near ASHLEY; no abscess -s/p new line and 1g vanc with AM vanc level ordered -on daily meropenem now; continues to spike fever despite radha -Venous Duplex BLE(05/13/19): neg DVT Heme -thrombocytopenia, now resolved -plt stable; H&H stable -HIT panel: negative FEN -TPN -replete lytes prn -NPO until a rpt CT(~06/03/19) shows no anastomotic leak Ppx -Protonix gtt -SQH [facility]ID Dispo [facility]pending medical clearance Visit type - Emergency Visit Emergency Visit: Yes ED Registration Date: 04/30/19 Care time: The patient presented to the Emergency Department on the above date and was hospitalized for further evaluation of their emergent condition. - New Patient This patient is new to me today: No - Critical Care Critical Care patient: Yes Total Critical Care Time (in minutes): 45 Critical Care Statement: The care of this patient involved high complexity decision making to prevent further life threatening deterioration of the patient's condition and/or to evaluate & treat vital organ system(s) failure or risk of failure. ATTENDING PHYSICIAN STATEMENT I saw and evaluated the patient. I reviewed the resident's note and discussed the case with the resident. I agree with the resident's findings and plan as documented. SUBJECTIVE: OBJECTIVE: ASSESSMENT AND PLAN:
[2019-05-19] MEDS: INSULIN SLIDING SCALE (NOVOLOG) 1 VIAL SQ SCH ×3 (06:50→17:58)
[2019-05-19 07:07] LABS: HEMATOCRIT 22.4 % (35.4-49); HEMOGLOBIN 7.3 GM/dL (11.7-16.9); LYMPH % 25.9 % (8-40); MCHC 32.7 g/dl (32.0-35.9); MEAN CELL VOLUME 88.6 fl (80-96); MEAN PLT VOLUME 11.8 fl (7.5-11.1); MONO % 19.9 % (3.8-10.2); NEUT % 35.6 % (42.8-82.8); PLATELET COUNT 187 K/MM3 (134-434); RBC 2.52 M/mm3 (4.00-5.60); RDW 20.8 % (11.9-15.9); WHITE BLOOD COUNT 6.6 K/mm3 (4.0-10.0)
[2019-05-19 07:08] LABS: BASO % 2.6 % (0-2.0)
[2019-05-19 07:39] LABS: ALBUMIN 1.3 g/dl (3.4-5.0); CALCIUM 8.3 mg/dL (8.5-10.1); CREATININE 1.9 mg/dL (0.55-1.3); MAGNESIUM 2.1 mg/dL (1.8-2.4); PHOSPHOROUS 3.6 mg/dL (2.5-4.9); POTASSIUM 3.8 mmol/L (3.5-5.1)
[2019-05-19] MEDS ORDERED: KCL 10 MEQ IVPB 10 MEQ/100 ML INFUS.BAG IVPB SCH (09:15)
[2019-05-19 09:27] LABS: ANISOCYTOSIS 2+; MACROCYTOSIS 0; PLATELET ESTIMATE NORMAL; TARGET CELLS 1+
[2019-05-19] MEDS: FUROSEMIDE 40 MG/4 ML INJECTABLE VIAL IVPUSH SCH (10:13)
--- NOTE | 2019-05-19 11:26 | PN ---
Teaching Attending Note Name of Resident: Oskar Saha ATTENDING PHYSICIAN STATEMENT I saw and evaluated the patient. I reviewed the resident's note and discussed the case with the resident. I agree with the resident's findings and plan as documented. SUBJECTIVE: Pt seen and examined in the ICU. Vented, more awake today. Remains febrile. Placed on CPAP/PS. OBJECTIVE: Vital Signs Period Temp Pulse Resp BP Sys/Booth Pulse Ox Last 24 Hr 99 F-100.9 F 94-116 14-21 91-137/53-73 100-100 Intake & Output 05/16/19 05/17/19 05/18/19 05/19/19 23:59 23:59 23:59 23:59 Intake Total 2410 1277.5 1250 1020 Output Total 4357 915 5373 610 Balance 950 507.5 30 410 Weight 91.263 kg 89.131 kg 88.042 kg 88.995 kg Gen: vented, awake Heart: RRR Lung: scattered rhonchi Abd: soft, +ASHLEY Ext: + edema CBC, BMP 05/19/19 06:00 05/19/19 06:00 Active Medications Acetaminophen (Ofirmev Injection -) 1,000 mg IVPB Q6H PRN PRN Reason: FEVER Last Admin: 05/18/19 16:13 Dose: 1,000 mg Fentanyl (Sublimaze Injection -) 25 mcg IVPUSH Q6H PRN PRN Reason: AGITATION Stop: 05/19/19 15:14 Furosemide (Lasix Injection -) 60 mg IVPUSH DAILY [facility] Last Admin: 05/19/19 10:13 Dose: 60 mg Heparin Sodium (Porcine) (Heparin -) 5,000 unit SQ TID [facility] Last Admin: 05/19/19 05:27 Dose: 5,000 unit Meropenem 1 gm/ Dextrose 100 mls @ 100 mls/hr IVPB Q12H [facility] Last Admin: 05/19/19 05:28 Dose: 100 mls/hr Pantoprazole Sodium 80 mg/ (Sodium Chloride) 100 mls @ 10 mls/hr IVPB Q10H [facility] Stop: 05/19/19 15:37 Last Admin: 05/19/19 05:27 Dose: Not Given Insulin Human Regular 75 units / Folic Acid 1 mg/Multivitamins/Minerals 10 ml/ Thiamine HCl 100 mg/ Magnesium Sulfate 0.985 gm/ Potassium Chloride 60 meq/ Calcium Gluconate 2,000 mg/ Chromium/Copper/Manganese/Zinc 1 ml/Sterile Water/ Amino Acids/Dextrose 1,800 mls @ 75 mls/hr IV DAILY@1600 [facility] Last Admin: 05/18/19 16:34 Dose: 75 mls/hr Insulin Aspart (Novolog Vial Sliding Scale -) 1 vial SQ TIDAC [facility]; Protocol Last Admin: 05/19/19 06:50 Dose: 2 units Ondansetron HCl (Zofran Injection) 4 mg IVPUSH Q6H PRN PRN Reason: NAUSEA AND/OR VOMITING ASSESSMENT AND PLAN: Acute Hypoxic Respiratory Failure Perforated Duodenal Ulcer s/p Ex-lap/Jack Patch Repair Peritonitis Septic Shock resolving Acute Kidney Injury Elevated LFTs likely Ischemic Injury Volume Overload Anemia Thrombocytopenia Mental Retardation HTN DM - continue antibiotics per ID - imaging per surgery - monitor drain output - protonix - continue TPN - continue lasix - monitor urine output, creatinine - spontaneous breathing trials as tolerated - DVT/GI prophylaxis - LTAC evaluation
[2019-05-19 12:01] VITALS: TEMP 100
[2019-05-19] MEDS: ACETAMINOPHEN 1000 MG/100 ML VIAL (NON FORMULARY) IVPB PRN (12:11)
--- NOTE | 2019-05-19 13:40 | PN ---
Teaching Attending Note Name of Resident: Vidal Aguilar ATTENDING PHYSICIAN STATEMENT I saw and evaluated the patient. I reviewed the resident's note and discussed the case with the resident. I agree with the resident's findings and plan as documented. SUBJECTIVE: Patient seen and evaluated at bedside, on trach collar/vent tolerating CPAP w/ PSV of 10, VSS, patient stable for DC to LTAC w/ follow up at facility with continuation of IV abx and CT abdomen/pelvis to rule out underlying abscess. OBJECTIVE: GENERAL: opens eyes, doesnt follow commands on CPAP with trach collar/vent. HEAD: Normal with no signs of trauma. EYES: sclera anicteric, conjunctiva clear. No ptosis. ENT: Ears normal, nares patent, moist mucous membranes. s/p trach with clean trach site LUNGS: coarse b/l BS to auscultation bilaterally. HEART: Regular rate and rhythm, S1, S2 without murmur, rub or gallop. ABDOMEN: Soft, non-tender, non-distended, BS+, open abdominal incision without pus or discharge EXTREMITIES: 2+ pulses, warm, well-perfused, nonpitting edema. NEUROLOGICAL: opens eyes does not track does not follow commands SKIN: Warm, dry, normal turgor, no rashes or lesions noted Vital Signs - 24 hr 05/18/19 05/18/19 05/18/19 14:00 16:00 16:10 Temperature 100.9 F H Pulse Rate 113 H 102 H Respiratory 20 17 17 Rate Blood Pressure 116/62 137/73 O2 Sat by Pulse Oximetry (%) 05/18/19 05/18/19 05/18/19 18:00 19:31 19:39 Temperature 100.1 F H Pulse Rate 106 H Respiratory 21 H 21 H 21 H Rate Blood Pressure 96/61 O2 Sat by Pulse 100 Oximetry (%) 05/18/19 05/18/19 05/18/19 20:00 20:45 22:00 Temperature 100 F H Pulse Rate 104 H 104 H Respiratory 14 21 H 14 Rate Blood Pressure 101/62 118/66 O2 Sat by Pulse Oximetry (%) 05/19/19 05/19/19 05/19/19 00:00 00:25 02:00 Temperature 99 F Pulse Rate 94 H 98 H Respiratory 17 16 18 Rate Blood Pressure 91/53 L 118/66 O2 Sat by Pulse Oximetry (%) 05/19/19 05/19/19 05/19/19 04:00 04:45 06:00 Temperature 99.9 F H Pulse Rate 94 H 100 H Respiratory 15 18 16 Rate Blood Pressure 112/63 111/68 O2 Sat by Pulse Oximetry (%) 05/19/19 05/19/19 05/19/19 08:00 08:19 08:53 Temperature Pulse Rate 100 H Respiratory 18 18 Rate Blood Pressure 118/63 O2 Sat by Pulse 100 Oximetry (%) 05/19/19 05/19/19 05/19/19 09:02 09:10 10:00 Temperature 99.1 F Pulse Rate 101 H 104 H Respiratory 18 18 18 Rate Blood Pressure 118/63 127/65 O2 Sat by Pulse 100 Oximetry (%) 05/19/19 05/19/19 05/19/19 12:00 12:03 12:19 Temperature 100 F H Pulse Rate 112 H 112 H Respiratory 18 31 H 18 Rate Blood Pressure 118/67 118/67 O2 Sat by Pulse Oximetry (%) Microbiology 05/11/19 09:50 Blood - Peripheral Venous Blood Culture - Final NO GROWTH AFTER 5 DAYS INCUBATION 05/11/19 09:45 Blood - Peripheral Venous Blood Culture - Final NO GROWTH AFTER 5 DAYS INCUBATION 05/08/19 05:55 Blood - Peripheral Venous Blood Culture - Final NO GROWTH AFTER 5 DAYS INCUBATION 05/08/19 05:50 Blood - Peripheral Venous Blood Culture - Final NO GROWTH AFTER 5 DAYS INCUBATION 04/30/19 09:00 Blood - Peripheral Venous Blood Culture - Final NO GROWTH AFTER 5 DAYS INCUBATION 04/30/19 09:00 Blood - Peripheral Venous Blood Culture - Final NO GROWTH AFTER 5 DAYS INCUBATION 04/30/19 14:28 Body Fluid - Other Gram Stain - Final 04/30/19 14:28 Body Fluid - Other Body Fluid Culture - Final NO GROWTH OF AEROBIC ORGANISMS AFTER 48 HOURS INCUBATION 04/30/19 14:28 Body Fluid - Other Anaerobic Culture - Final NO ANAEROBES WERE ISOLATED 04/30/19 14:38 Abdomen Gram Stain - Final 04/30/19 12:30 Urine - Urine Clean Catch Urine Culture - Final NO GROWTH OBTAINED Laboratory Results - last 24 hr 05/18/19 05/18/19 05/19/19 16:10 20:58 05:47 WBC RBC Hgb Hct MCV MCH MCHC RDW Plt Count MPV Absolute Neuts (auto) Neutrophils % Neutrophils % (Manual) Band Neutrophils % Lymphocytes % Lymphocytes % (Manual) Monocytes % Monocytes % (Manual) Eosinophils % Eosinophils % (Manual) Basophils % Basophils % (Manual) Myelocytes % (Man) Promyelocytes % (Man) Blast Cells % (Manual) Nucleated RBC % Metamyelocytes Hypochromia Platelet Estimate Polychromasia Poikilocytosis Anisocytosis Microcytosis Macrocytosis Target Cells Sodium Potassium Chloride Carbon Dioxide Anion Gap BUN Creatinine Est GFR (CKD-EPI)AfAm Est GFR (CKD-EPI)NonAf POC Glucometer 202 167 155 Random Glucose Calcium Phosphorus Magnesium Total Bilirubin AST ALT Alkaline Phosphatase Total Protein Albumin 05/19/19 05/19/19 05/19/19 06:00 06:00 11:43 WBC 6.6 RBC 2.52 L Hgb 7.3 L Hct 22.4 L MCV 88.6 MCH 29.0 MCHC 32.7 RDW 20.8 H Plt Count 187 MPV 11.8 H Absolute Neuts (auto) 2.3 Neutrophils % 35.6 L D Neutrophils % (Manual) 45.7 Band Neutrophils % 0.0 Lymphocytes % 25.9 Lymphocytes % (Manual) 30.5 D Monocytes % 19.9 H Monocytes % (Manual) 11 H Eosinophils % 16.0 H Eosinophils % (Manual) 10.5 H Basophils % 2.6 H Basophils % (Manual) 0.0 Myelocytes % (Man) 0 Promyelocytes % (Man) 0 Blast Cells % (Manual) 0 Nucleated RBC % 0 Metamyelocytes 0 Hypochromia 1+ Platelet Estimate Normal Polychromasia 1+ Poikilocytosis 1+ Anisocytosis 2+ Microcytosis 2+ Macrocytosis 0 Target Cells 1+ Sodium 145 Potassium 3.8 Chloride 112 H Carbon Dioxide 26 Anion Gap 7 L BUN 98.0 H Creatinine 1.9 H Est GFR (CKD-EPI)AfAm 42.24 Est GFR (CKD-EPI)NonAf 36.45 POC Glucometer 200 Random Glucose 151 H Calcium 8.3 L Phosphorus 3.6 Magnesium 2.1 Total Bilirubin 2.0 H AST 71 H ALT 51 Alkaline Phosphatase 79 Total Protein 6.0 L Albumin 1.3 L Current Medications Generic Name Dose Route Start Last Admin Trade Name Freq PRN Reason Stop Dose Admin Acetaminophen 1,000 mg 05/15/19 21:58 05/19/19 12:11 Ofirmev Injection - IVPB 1,000 mg Q6H PRN Administration FEVER Fentanyl 25 mcg 05/18/19 15:08 Sublimaze Injection - IVPUSH 05/19/19 15:14 Q6H PRN AGITATION Furosemide 60 mg 05/12/19 10:00 05/19/19 10:13 Lasix Injection - IVPUSH 60 mg DAILY MARYSE Administration Heparin Sodium (Porcine) 5,000 unit 05/02/19 22:00 05/19/19 05:27 Heparin - SQ 5,000 unit TID MARYSE Administration Meropenem 1 gm/ Dextrose 100 mls @ 100 mls/hr 05/12/19 06:00 05/19/19 05:28 IVPB 100 mls/hr Q12H MARYSE Administration Pantoprazole Sodium 80 mg/ 100 mls @ 10 mls/hr 05/16/19 15:45 05/19/19 05:27 Sodium Chloride IVPB 05/19/19 15:37 Not Given Q10H MARYSE 8 MG/HR Insulin Human Regular 75 units 1,800 mls @ 75 mls/hr 05/18/19 16:00 05/18/19 16:34 / Folic Acid 1 mg/ IV 75 mls/hr Multivitamins/Minerals 10 ml/ DAILY@1600 MARYSE Administration Thiamine HCl 100 mg/ Magnesium Sulfate 0.985 gm/ Potassium Chloride 60 meq/ Calcium Gluconate 2,000 mg/ Chromium/ Copper/Manganese/Zinc 1 ml/ Sterile Water/ Amino Acids/ Dextrose Insulin Aspart 1 vial 05/01/19 07:00 05/19/19 11:49 Novolog Vial Sliding Scale - SQ 2 units TIDAC MARYSE Administration Protocol Ondansetron HCl 4 mg 04/30/19 16:45 Zofran Injection IVPUSH Q6H PRN NAUSEA AND/OR VOMITING A/P: 64 M h/o MR, HTN, DM, b/l LE swelling who was BIBEMS for a 1 day h/o Hypotension , lethargy and tachycardia. Admitted for perforated duodenal ulcer requiring ex- lap. S/p trach for prolonged intubation course. Perforated duodenal ulcer s/p exlap Thrombocytopenic with Zosyn, continue IV Meropenem at facility CT of abdomen and pelvis to be done at LTAC facility to rule out fluid collection/abscess ID consult: Dr Richard Septic shock off pressors d/t perforated ulcer cont. IV hydration, abx, TPN Surgery consult: Dr Bhat HTN off BP meds T2DM insulin drip as needed to maintain F/S 140-180 DVT ppx: Lovenox SC GI ppx: PPI Dispo: LTAC for discharge today
--- NOTE | 2019-05-19 13:44 | PN ---
Progress Note, Physician History of Present Illness: Pt seen and examined at bedside. He remains in the ICU. He is still on TPN. - Current Medication List Current Medications: Active Medications Acetaminophen (Ofirmev Injection -) 1,000 mg IVPB Q6H PRN PRN Reason: FEVER Last Admin: 05/19/19 12:11 Dose: 1,000 mg Fentanyl (Sublimaze Injection -) 25 mcg IVPUSH Q6H PRN PRN Reason: AGITATION Stop: 05/19/19 15:14 Furosemide (Lasix Injection -) 60 mg IVPUSH DAILY [facility] Last Admin: 05/19/19 10:13 Dose: 60 mg Heparin Sodium (Porcine) (Heparin -) 5,000 unit SQ TID [facility] Last Admin: 05/19/19 05:27 Dose: 5,000 unit Meropenem 1 gm/ Dextrose 100 mls @ 100 mls/hr IVPB Q12H [facility] Last Admin: 05/19/19 05:28 Dose: 100 mls/hr Pantoprazole Sodium 80 mg/ (Sodium Chloride) 100 mls @ 10 mls/hr IVPB Q10H [facility] Stop: 05/19/19 15:37 Last Admin: 05/19/19 05:27 Dose: Not Given Insulin Human Regular 75 units / Folic Acid 1 mg/Multivitamins/Minerals 10 ml/ Thiamine HCl 100 mg/ Magnesium Sulfate 0.985 gm/ Potassium Chloride 60 meq/ Calcium Gluconate 2,000 mg/ Chromium/Copper/Manganese/Zinc 1 ml/Sterile Water/ Amino Acids/Dextrose 1,800 mls @ 75 mls/hr IV DAILY@1600 [facility] Last Admin: 05/18/19 16:34 Dose: 75 mls/hr Insulin Aspart (Novolog Vial Sliding Scale -) 1 vial SQ TIDAC [facility]; Protocol Last Admin: 05/19/19 11:49 Dose: 2 units Ondansetron HCl (Zofran Injection) 4 mg IVPUSH Q6H PRN PRN Reason: NAUSEA AND/OR VOMITING - Objective Vital Signs: Vital Signs Temperature 100 F H 05/19/19 12:00 Pulse Rate 112 H 05/19/19 12:19 Respiratory Rate 18 05/19/19 12:19 Blood Pressure 118/67 05/19/19 12:19 O2 Sat by Pulse Oximetry (%) 100 05/19/19 09:02 Constitutional: Yes: Calm Eyes: Yes: Conjunctiva Clear HENT: Yes: Atraumatic Neck: Yes: Supple Cardiovascular: Yes: S1, S2 Respiratory: Yes: CTA Bilaterally Gastrointestinal: Yes: Soft Genitourinary: Yes: Banuelos Present Edema: Yes Edema: LLE: 2+, RLE: 2+ Neurological: Yes: Lethargy Labs: CBC, BMP 05/19/19 06:00 05/19/19 06:00 INR, PTT INR 1.36 (0.83-1.09) H 05/05/19 05:00 Fibrinogen 443.0 mg/dL (238-498) 05/05/19 05:00 Assessment/Plan Current Medications Generic Name Dose Route Start Last Admin Trade Name Freq PRN Reason Stop Dose Admin Acetaminophen 1,000 mg 05/15/19 21:58 05/19/19 12:11 Ofirmev Injection - IVPB 1,000 mg Q6H PRN Administration FEVER Fentanyl 25 mcg 05/18/19 15:08 Sublimaze Injection - IVPUSH 05/19/19 15:14 Q6H PRN AGITATION Furosemide 60 mg 05/12/19 10:00 05/19/19 10:13 Lasix Injection - IVPUSH 60 mg DAILY MARYSE Administration Heparin Sodium (Porcine) 5,000 unit 05/02/19 22:00 05/19/19 05:27 Heparin - SQ 5,000 unit TID MARYSE Administration Meropenem 1 gm/ Dextrose 100 mls @ 100 mls/hr 05/12/19 06:00 05/19/19 05:28 IVPB 100 mls/hr Q12H MARYSE Administration Pantoprazole Sodium 80 mg/ 100 mls @ 10 mls/hr 05/16/19 15:45 05/19/19 05:27 Sodium Chloride IVPB 05/19/19 15:37 Not Given Q10H MARYSE 8 MG/HR Insulin Human Regular 75 units 1,800 mls @ 75 mls/hr 05/18/19 16:00 05/18/19 16:34 / Folic Acid 1 mg/ IV 75 mls/hr Multivitamins/Minerals 10 ml/ DAILY@1600 MARYSE Administration Thiamine HCl 100 mg/ Magnesium Sulfate 0.985 gm/ Potassium Chloride 60 meq/ Calcium Gluconate 2,000 mg/ Chromium/ Copper/Manganese/Zinc 1 ml/ Sterile Water/ Amino Acids/ Dextrose Insulin Aspart 1 vial 05/01/19 07:00 05/19/19 11:49 Novolog Vial Sliding Scale - SQ 2 units TIDAC MARYSE Administration Protocol Ondansetron HCl 4 mg 04/30/19 16:45 Zofran Injection IVPUSH Q6H PRN NAUSEA AND/OR VOMITING IMPRESSION DOMENIC septic shock perforated duodenal ulcer fluid overload MR DM possible ckd transamitis hyperkalemia hyponatremia PLAN - monitor renal function - sodium stable - pt tolerating fluids - cont lasix - vent support - edema in part also from 3rd spacing
--- NOTE | 2019-05-19 15:15 | DS ---
Physical Exam: SUBJECTIVE: Patient seen and examined has low grade fever over night , hemodynamically stable for dc to LTAC cont Meropenem till CT A/P done Cont TPN for feeding low protein cont lasix 60 daily with daily assess for volume status OBJECTIVE: Vital Signs Period Temp Pulse Resp BP Sys/Booth Pulse Ox Last 24 Hr 99 F-100.9 F 94-112 14-31 91-137/53-73 100-100 PHYSICAL EXAM GENERAL: S/p tracheostomy ventilated, sedated HEAD: Normal with no signs of trauma. EYES: sclera anicteric, conjunctiva clear. No ptosis. ENT: Ears normal, nares patent, moist mucous membranes. NGT ~60cm at nares NECK: Trachea midline, full range of motion, supple. LUNGS: Coarse b/l BS to auscultation bilaterally. Vent 500, 14, 5, 35% HEART: tachycardic and regular rhythm, S1, S2 without murmur, rub or gallop. ABDOMEN: Soft, nontender, nondistended, hypoactive bowel sounds, surgical dressi ngs overlying mid abd without purulence or signs of infection. ASHLEY with thin white drainage, midline surgical wound with WTD dressing in place : mild scrotum edema EXTREMITIES: 2+ pulses, warm, well-perfused, improving peripheral edema. NEUROLOGICAL: unresponsive, does not follow commands, eyes are occasionally tracking motions; blink response to threat, withdrawing to painful stimuli; on Fentanyl gtt SKIN: Warm, dry, normal turgor, no rashes or lesions noted, edema LABS Laboratory Results - last 24 hr 05/18/19 05/18/19 05/19/19 16:10 20:58 05:47 WBC RBC Hgb Hct MCV MCH MCHC RDW Plt Count MPV Absolute Neuts (auto) Neutrophils % Neutrophils % (Manual) Band Neutrophils % Lymphocytes % Lymphocytes % (Manual) Monocytes % Monocytes % (Manual) Eosinophils % Eosinophils % (Manual) Basophils % Basophils % (Manual) Myelocytes % (Man) Promyelocytes % (Man) Blast Cells % (Manual) Nucleated RBC % Metamyelocytes Hypochromia Platelet Estimate Polychromasia Poikilocytosis Anisocytosis Microcytosis Macrocytosis Target Cells Sodium Potassium Chloride Carbon Dioxide Anion Gap BUN Creatinine Est GFR (CKD-EPI)AfAm Est GFR (CKD-EPI)NonAf POC Glucometer 202 167 155 Random Glucose Calcium Phosphorus Magnesium Total Bilirubin AST ALT Alkaline Phosphatase Total Protein Albumin 05/19/19 05/19/19 05/19/19 06:00 06:00 11:43 WBC 6.6 RBC 2.52 L Hgb 7.3 L Hct 22.4 L MCV 88.6 MCH 29.0 MCHC 32.7 RDW 20.8 H Plt Count 187 MPV 11.8 H Absolute Neuts (auto) 2.3 Neutrophils % 35.6 L D Neutrophils % (Manual) 45.7 Band Neutrophils % 0.0 Lymphocytes % 25.9 Lymphocytes % (Manual) 30.5 D Monocytes % 19.9 H Monocytes % (Manual) 11 H Eosinophils % 16.0 H Eosinophils % (Manual) 10.5 H Basophils % 2.6 H Basophils % (Manual) 0.0 Myelocytes % (Man) 0 Promyelocytes % (Man) 0 Blast Cells % (Manual) 0 Nucleated RBC % 0 Metamyelocytes 0 Hypochromia 1+ Platelet Estimate Normal Polychromasia 1+ Poikilocytosis 1+ Anisocytosis 2+ Microcytosis 2+ Macrocytosis 0 Target Cells 1+ Sodium 145 Potassium 3.8 Chloride 112 H Carbon Dioxide 26 Anion Gap 7 L BUN 98.0 H Creatinine 1.9 H Est GFR (CKD-EPI)AfAm 42.24 Est GFR (CKD-EPI)NonAf 36.45 POC Glucometer 200 Random Glucose 151 H Calcium 8.3 L Phosphorus 3.6 Magnesium 2.1 Total Bilirubin 2.0 H AST 71 H ALT 51 Alkaline Phosphatase 79 Total Protein 6.0 L Albumin 1.3 L CBC, BMP 05/19/19 06:00 05/19/19 06:00 HOSPITAL COURSE: Date of Admission:04/30/19 Date of Discharge: 05/19/19 Patient is a 64 year old male with PMH of MR, HTN, DM, b/l LE swelling who was BIBEMS for a 1 day h/o Hypotension (70/51), lethargy and tachycardia, found to have free air under the diaphragm s/p omental patch for duodenal perforation POD18. Post-op admission to ICU intubated for HD monitoring. Neuro -uremia -no interactive --possibly 2/2 developmental delay vs uremia vs sedation -no sedation -25mcg q6hr prn for agitations -per Juan Jose, patient speaks one word sentences and performs some ADLs without assist Pulmonary -Intubated -->s/p tracheostomy(Sarmadastri, 05/14/19); consented w/ district attorney Mr Vigil -trach site clean and without evidence of bleeding or skin breakdown -Vent: 500, 14, 6, 35%; CPAP as tolerated Cardiovascular -Hypotension --likely 2/2 septic shock ---resolved -Off pressors -CVP goal 8-12 GI -Perforated duodenum --possibly 2/2 freq NSAID usage vs H pylori -Jack Patch leakage --monitor ASHLEY drain outpt -with TF leak currently NPO -Transamnitis --likely shocked liver 2/2 hypotension now stable -CT A/P(05/15/19): -S/p Ex-Lap w/ Ajck Patch(Perlita, 04/30/19) -NGT placed surgically. per surgery NGT SHOULD NOT BE REMOVED OR MANIPULATED until 05/28/[address] scan with PO contrast -per surgery no TF as there is a possible leakage of Jack Patch -ASHLEY drain to stay in place per surgery instructions -surgical packing and rik removed; per surgery instruction: irrigate wound with WTD saline and cover with dry dressing daily -repeat CT A/P w/ PO contrast at ~06/03/19 to reevaluate for leak -repeat CT A/P in 5d if fevers persist (05/20/19) -protonix gtt -Abx regimen: s/p flagyl, fluc, ceftr now all DCd; on meropenem as per ID -restarted TPN(05/15/19) Renal -DOMENIC --likely 2/2 cardiorenal syndrome -Cr improving 2.0, BUN 98.5 -Nephro([facility]) consult: -lasix 60mg QD -Nephro(Jose) consult: -possibly 3rd spacing dt hypoalbuminemia ID -downtrending WBC since surgery, now stable wnl -CTH(05/06/19): neg acute path -CT A/P(05/06/19): free air along the subhepatic space, likely postsurgical -CT A/P(05/13/19): b/l pleural efusion, unchanged small pneumoperitoneum at RUQ near ASHLEY; no abscess -s/p new line and 1g vanc with AM vanc level ordered -on daily meropenem now; continues to spike fever despite radha -Venous Duplex BLE(05/13/19): neg DVT Heme -thrombocytopenia, now resolved -plt stable; H&H stable -HIT panel: negative FEN -TPN -replete lytes prn -NPO until a rpt CT(~06/03/19) shows no anastomotic leak Ppx -Protonix gtt -SQH TID Dispo -discharge to LTACH --pending medical clearance The following medication was held during hospitalization * Lipitor 20 HS * clotrimazole/bethamethazone cream 45 mg Topical TID * desonide 59ml BID topical * colace 100 TID * depakote 1500 PO daily * Fluquinolon 1 pplicable 15 mg BID * fluticcasone inhaler * ketoconazole cream 2 % BID * lisinopril 40 daily * lortadin 10 mg daily * Metformin 1000 BID * Naproxen 375 BID * Zyprexa 10 BID * pioglitazone 15 daily * keflex 250 Q 8hr * Amlodipin 10 mg po daily * ASA 81 * atenolol 50 daily * Benadryl topical BID * Minutes to complete discharge: 120 Discharge Summary Problems reviewed: Yes Reason For Visit: PERFORATION OF INTESTINE Current Active Problems DOMENIC (acute kidney injury) (Acute) Anasarca (Acute) Anemia (Acute) Bowel perforation (Acute) Perforated duodenal ulcer (Acute) Respiratory failure (Acute) Sepsis (Acute) Shock liver (Acute) Thrombocytopenia (Acute) Condition: Guarded - Instructions Diet, Activity, Other Instructions: patient presented to the hospital with septic shock due to perforated viscus and he was operated on and treated with antibiotics and monitores in ICU Pt will bne discharged to [facility] cont to hold BP medicication as pt is still borderline hypotensive cont lasix 60 Mg IV push daily per nephrology recommendation and re assess daily cont IV antibiotics Meropenem due till CT abdomen /Pelvic repeated and if there is no collection antibiotics could be stopped. cont PPI drip Cont IV tyelenol Q 6hr for paain and fever cont zofran for nausea cont Heparine SQ TID for DVT prophylxis pt is on TPN Hold DM oral agents and cont with insulin sliding scale Hold bP Atenolol 50 daily , Amlodipin 10 dAILY AND ASPIRIN 81 MG DAILY medication as HOLD LIPITOR 20 TILL PT IS ABLE TO TAKE PO MEDICATION the following medication was held during hospitalization : pt is hemodynamically stable and ready to dc for LTAC If symptoms worsen please return to emergency room. Referrals: Tr Bill [Primary Care Provider] - 1 Month Disposition: RESIDENTIAL FACILITY - Home Medications Comprehensive Discharge Medication List: Ambulatory Orders Acetaminophen Injection [Ofirmev Injection -] 1,000 mg IVPB Q6H PRN vial Amino Acids 10% [Travasol] 900 ml IV DAILY@1600 infus.bag 05/19/19 Calcium Gluconate 10% - 2,000 mg IV DAILY@1600 vial 05/19/19 Dextrose 70%-Water - [D70w -] 450 ml IV DAILY@1600 infus.bag 05/19/19 Fentanyl Injection [Sublimaze Injection -] 25 mcg IVPUSH Q6H PRN ampul MDD 4 05/19/19 Folic Acid Injection - 1 mg IV DAILY@1600 ml 05/19/19 Furosemide Injection [Lasix Injection -] 60 mg IVPUSH DAILY vial 05/19/19 Heparin - 5,000 unit SQ TID vial 05/19/19 Insulin Regular [Novolin R Vial -] 75 units IV DAILY@1600 units 05/19/19 Insulin Sliding Scale [Novolog Vial Sliding Scale -] 1 vial SQ TIDAC units 05/19/19 Magnesium Sulfate 0.985 gm IV DAILY@1600 vial 05/19/19 Meropenem [Merrem (Restricted To Id) -] 1 gm IVPB Q12H vial 05/19/19 Ondansetron Injection [Zofran Injection] 4 mg IVPUSH Q6H PRN vial 05/19/19 Pantoprazole Sodium [Protonix IV] 80 mg IVPB Q10H vial 05/19/19 Thiamine HCl [Vitamin B1 Injection -] 100 mg IV DAILY@1600 vial 05/19/19 Water For Inj,Sterile [Sterile Water *TPN Order*] 385.08 ml IV DAILY@1600 infus..btl 05/19/19 Zinc Sulf/Cuso4 P-Hyd/Remy/Cr [Multitrace-4 Conc Adult -] 1 ml IV DAILY@1600 vial 05/19/19 This patient is new to me today: No Emergency Visit: Yes ED Registration Date: 04/30/19 Care time: The patient presented to the Emergency Department on the above date and was hospitalized for further evaluation of their emergent condition. Critical Care patient: Yes Total Critical Care Time (in minutes): 45 Critical Care Statement: The care of this patient involved high complexity decision making to prevent further life threatening deterioration of the patient's condition and/or to evaluate & treat vital organ system(s) failure or risk of failure. - Discharge Referral Referred to [facility] No Physician Referral: Tomas Nielson MD ([facility]) ATTENDING PHYSICIAN STATEMENT I saw and evaluated the patient. I reviewed the resident's note and discussed the case with the resident. I agree with the resident's findings and plan as documented. SUBJECTIVE: OBJECTIVE: ASSESSMENT AND PLAN:
[2019-05-19] MEDS: MULTIVIT IV SCH (15:43)
[2019-05-19] MEDS: [UNRECOGNIZED DRUG - OTHER] IV SCH (15:43)
[2019-05-19] MEDS: FOLIC ACID IV SCH (15:43)
[2019-05-19] MEDS: INSULIN REGULAR IV SCH (15:43)
[2019-05-19] MEDS ORDERED: PT OWN MED DRAWER 7, Y5N ONE (15:48)
--- NOTE | 2019-05-19 16:49 | PN ---
Progress Note (short form) - Note Progress Note: more alert trach to vent Vital Signs Period Temp Pulse Resp BP Sys/Booth Pulse Ox Last 24 Hr 99 F-100.1 F 94-112 11-31 91-127/53-68 100-100 trach to vent opens eyes cor-rrr lungs decreased bs at bases abd soft, +ASHLEY drain- minimal cloudy drainage ext trace edema +demarco CBC, BMP 05/19/19 06:00 05/19/19 06:00 Microbiology 05/11/19 09:50 Blood - Peripheral Venous Blood Culture - Final NO GROWTH AFTER 5 DAYS INCUBATION 05/11/19 09:45 Blood - Peripheral Venous Blood Culture - Final NO GROWTH AFTER 5 DAYS INCUBATION 05/08/19 05:55 Blood - Peripheral Venous Blood Culture - Final NO GROWTH AFTER 5 DAYS INCUBATION 05/08/19 05:50 Blood - Peripheral Venous Blood Culture - Final NO GROWTH AFTER 5 DAYS INCUBATION 04/30/19 09:00 Blood - Peripheral Venous Blood Culture - Final NO GROWTH AFTER 5 DAYS INCUBATION 04/30/19 09:00 Blood - Peripheral Venous Blood Culture - Final NO GROWTH AFTER 5 DAYS INCUBATION 04/30/19 14:28 Body Fluid - Other Gram Stain - Final 04/30/19 14:28 Body Fluid - Other Body Fluid Culture - Final NO GROWTH OF AEROBIC ORGANISMS AFTER 48 HOURS INCUBATION 04/30/19 14:28 Body Fluid - Other Anaerobic Culture - Final NO ANAEROBES WERE ISOLATED 04/30/19 14:38 Abdomen Gram Stain - Final 04/30/19 12:30 Urine - Urine Clean Catch Urine Culture - Final NO GROWTH OBTAINED a/p +anastomatic Leak- feeds off, ct scan 05/15 with air leak, no collection s/p trach continue meropenem -had thrombocytopenia while on zosyn d/w resident- will await repeat ct scan before making decision regarding antibiotic duration POD #19 -remain intubated, remains unresponsive off sedation sepsis secondary to perforated viscus respiratory failure- remains intubated , s/p trach Problem List - Problems (1) Sepsis Code(s): A41.9 - SEPSIS, UNSPECIFIED ORGANISM (2) Bowel perforation Code(s): K63.1 - PERFORATION OF INTESTINE (NONTRAUMATIC) (3) DOMENIC (acute kidney injury) Code(s): N17.9 - ACUTE KIDNEY FAILURE, UNSPECIFIED (4) Shock liver Code(s): K72.00 - ACUTE AND SUBACUTE HEPATIC FAILURE WITHOUT COMA
--- NOTE | 2019-05-19 18:31 | PN ---
Physical Exam: SUBJECTIVE: Patient seen and examined Fever 100.9F @1400 yesterday Off sedation. Looking around, and tracking movements OBJECTIVE: Vital Signs Period Temp Pulse Resp BP Sys/Booth Pulse Ox Last 24 Hr 99 F-100 F 94-112 11-31 91-127/53-68 100-100 GENERAL: S/p tracheostomy ventilated, sedated HEAD: Normal with no signs of trauma. EYES: sclera anicteric, conjunctiva clear. No ptosis. ENT: Ears normal, nares patent, moist mucous membranes. NGT ~60cm at nares NECK: Trachea midline, full range of motion, supple. Tracheostomy w/o blood. LUNGS: Coarse b/l BS to auscultation bilaterally. Vent 500, 14, 5, 35% HEART: tachycardic and regular rhythm, S1, S2 without murmur, rub or gallop. ABDOMEN: Soft, nontender, nondistended, hypoactive bowel sounds, surgical dressings overlying mid abd without purulence or signs of infection. ASHLEY with thin white drainage, midline surgical wound with WTD dressing in place : mild scrotum edema EXTREMITIES: 2+ pulses, warm, well-perfused, improving peripheral edema. NEUROLOGICAL: unresponsive, does not follow commands, eyes are occasionally tracking motions; blink response to threat, withdrawing to painful stimuli; on Fentanyl gtt SKIN: Warm, dry, normal turgor, no rashes or lesions noted, edema Laboratory Results - last 24 hr 05/18/19 05/19/19 05/19/19 20:58 05:47 06:00 WBC 6.6 RBC 2.52 L Hgb 7.3 L Hct 22.4 L MCV 88.6 MCH 29.0 MCHC 32.7 RDW 20.8 H Plt Count 187 MPV 11.8 H Absolute Neuts (auto) 2.3 Neutrophils % 35.6 L D Neutrophils % (Manual) 45.7 Band Neutrophils % 0.0 Lymphocytes % 25.9 Lymphocytes % (Manual) 30.5 D Monocytes % 19.9 H Monocytes % (Manual) 11 H Eosinophils % 16.0 H Eosinophils % (Manual) 10.5 H Basophils % 2.6 H Basophils % (Manual) 0.0 Myelocytes % (Man) 0 Promyelocytes % (Man) 0 Blast Cells % (Manual) 0 Nucleated RBC % 0 Metamyelocytes 0 Hypochromia 1+ Platelet Estimate Normal Polychromasia 1+ Poikilocytosis 1+ Anisocytosis 2+ Microcytosis 2+ Macrocytosis 0 Target Cells 1+ Sodium Potassium Chloride Carbon Dioxide Anion Gap BUN Creatinine Est GFR (CKD-EPI)AfAm Est GFR (CKD-EPI)NonAf POC Glucometer 167 155 Random Glucose Calcium Phosphorus Magnesium Total Bilirubin AST ALT Alkaline Phosphatase Total Protein Albumin 05/19/19 05/19/19 05/19/19 06:00 11:43 17:57 WBC RBC Hgb Hct MCV MCH MCHC RDW Plt Count MPV Absolute Neuts (auto) Neutrophils % Neutrophils % (Manual) Band Neutrophils % Lymphocytes % Lymphocytes % (Manual) Monocytes % Monocytes % (Manual) Eosinophils % Eosinophils % (Manual) Basophils % Basophils % (Manual) Myelocytes % (Man) Promyelocytes % (Man) Blast Cells % (Manual) Nucleated RBC % Metamyelocytes Hypochromia Platelet Estimate Polychromasia Poikilocytosis Anisocytosis Microcytosis Macrocytosis Target Cells Sodium 145 Potassium 3.8 Chloride 112 H Carbon Dioxide 26 Anion Gap 7 L BUN 98.0 H Creatinine 1.9 H Est GFR (CKD-EPI)AfAm 42.24 Est GFR (CKD-EPI)NonAf 36.45 POC Glucometer 200 131 Random Glucose 151 H Calcium 8.3 L Phosphorus 3.6 Magnesium 2.1 Total Bilirubin 2.0 H AST 71 H ALT 51 Alkaline Phosphatase 79 Total Protein 6.0 L Albumin 1.3 L Active Medications Generic Name Dose Route Start Last Admin Trade Name Freq PRN Reason Stop Dose Admin Acetaminophen 1,000 mg 05/15/19 21:58 05/19/19 12:11 Ofirmev Injection - IVPB 1,000 mg Q6H PRN Administration FEVER Furosemide 60 mg 05/12/19 10:00 05/19/19 10:13 Lasix Injection - IVPUSH 60 mg DAILY MARYSE Administration Heparin Sodium (Porcine) 5,000 unit 05/02/19 22:00 05/19/19 15:51 Heparin - SQ 5,000 unit TID MARYSE Administration Meropenem 1 gm/ Dextrose 100 mls @ 100 mls/hr 05/12/19 06:00 05/19/19 17:52 IVPB 100 mls/hr Q12H MARYSE Administration Insulin Human Regular 75 units 1,800 mls @ 75 mls/hr 05/18/19 16:00 05/19/19 15:43 / Folic Acid 1 mg/ IV 75 mls/hr Multivitamins/Minerals 10 ml/ DAILY@1600 [facility] Administration Thiamine HCl 100 mg/ Magnesium Sulfate 0.985 gm/ Potassium Chloride 60 meq/ Calcium Gluconate 2,000 mg/ Chromium/ Copper/Manganese/Zinc 1 ml/ Sterile Water/ Amino Acids/ Dextrose Insulin Aspart 1 vial 05/01/19 07:00 05/19/19 17:58 Novolog Vial Sliding Scale - SQ Not Given TIDAC [facility] Protocol Ondansetron HCl 4 mg 04/30/19 16:45 Zofran Injection IVPUSH Q6H PRN NAUSEA AND/OR VOMITING ASSESSMENT/PLAN: 64 year old male with PMH of MR, HTN, DM, b/l LE swelling who was BIBEMS for a 1 day h/o Hypotension (70/51), lethargy and tachycardia, found to have free air under the diaphragm s/p omental patch for duodenal perforation POD18. Post-op admission to ICU intubated for HD monitoring. Neuro -uremia -no interactive --possibly 2/2 developmental delay vs uremia vs sedation -no sedation -25mcg q6hr prn for agitations -per Juan Jose, patient speaks one word sentences and performs some ADLs without assist Pulmonary -Intubated -->s/p tracheostomy(Debby, 05/14/19); consented w/ assistant attorney general Mr Vigil -trach site clean and without evidence of bleeding or skin breakdown -Vent: 500, 14, 6, 35%; CPAP as tolerated Cardiovascular -Hypotension --likely 2/2 septic shock ---resolved -Off pressors -CVP goal 8-12 GI -Perforated duodenum --possibly 2/2 freq NSAID usage vs H pylori -Jack Patch leakage --monitor ASHLEY drain outpt -with TF leak currently NPO -Transamnitis --likely shocked liver 2/2 hypotension now stable -CT A/P(05/15/19): -S/p Ex-Lap w/ Jack Patch(Perlita, 04/30/19) -NGT placed surgically. per surgery NGT SHOULD NOT BE REMOVED OR MANIPULATED until 05/28/[address] scan with PO contrast -per surgery no TF as there is a possible leakage of Jack Patch -ASHLEY drain to stay in place per surgery instructions -surgical packing and rik removed; per surgery instruction: irrigate wound with WTD saline and cover with dry dressing daily -repeat CT A/P w/ PO contrast at ~06/03/19 to reevaluate for leak -repeat CT A/P in 5d if fevers persist (05/20/19) -protonix gtt -Abx regimen: s/p flagyl, fluc, ceftr now all DCd; on meropenem as per ID -restarted TPN(05/15/19) Renal -DOMENIC --likely 2/2 cardiorenal syndrome -Cr improving 2.0, BUN 98.5 -Nephro(Anant) consult: -lasix 60mg QD -Nephro(Jose) consult: -possibly 3rd spacing dt hypoalbuminemia ID -downtrending WBC since surgery, now stable wnl -CTH(05/06/19): neg acute path -CT A/P(05/06/19): free air along the subhepatic space, likely postsurgical -CT A/P(05/13/19): b/l pleural efusion, unchanged small pneumoperitoneum at RUQ near ASHLEY; no abscess -s/p new line and 1g vanc with AM vanc level ordered -on daily meropenem now; continues to spike fever despite radha -Venous Duplex BLE(05/13/19): neg DVT Heme -thrombocytopenia, now resolved -plt stable; H&H stable -HIT panel: negative FEN -TPN -replete lytes prn -NPO until a rpt CT(~06/03/19) shows no anastomotic leak Ppx -Protonix gtt -SQH TID Dispo -ICU monitoring -discharge to LTACH --pending medical clearance Visit type - Emergency Visit Emergency Visit: No - New Patient This patient is new to me today: No - Critical Care Critical Care patient: Yes Total Critical Care Time (in minutes): 36 Critical Care Statement: The care of this patient involved high complexity decision making to prevent further life threatening deterioration of the patient's condition and/or to evaluate & treat vital organ system(s) failure or risk of failure. ATTENDING PHYSICIAN STATEMENT I saw and evaluated the patient. I reviewed the resident's note and discussed the case with the resident. I agree with the resident's findings and plan as documented. SUBJECTIVE: OBJECTIVE: ASSESSMENT AND PLAN:
[2019-05-19 20:29] VITALS: BP 120/63; PULSE 101
== END 2019-05-19 20:38 | DRG 3 ==
LOC: JER 08:40 → JERBED 12:23 → JICU 18:24
PROVIDERS: ADMIT Internal Medicine
PROC: 5A1955Z Respiratory Ventilation, Greater than 96 Consecutive Hours (ICD-10-PCS; 2019-04-30)
PROC: 0B113F4 Bypass Trachea to Cutaneous with Tracheostomy Device, Percutaneous Approach (ICD-10-PCS; 2019-04-30)
PROC: 0BJ08ZZ Inspection of Tracheobronchial Tree, Via Natural or Artificial Opening Endoscopic (ICD-10-PCS; 2019-04-30)
PROC: 0D9670Z Drainage of Stomach with Drainage Device, Via Natural or Artificial Opening (ICD-10-PCS; 2019-04-30)
PROC: 05HN33Z Insertion of Infusion Device into Left Internal Jugular Vein, Percutaneous Approach (ICD-10-PCS; 2019-04-30)
PROC: B544ZZA Ultrasonography of Left Jugular Veins, Guidance (ICD-10-PCS; 2019-04-30)
PROC: 3E0336Z Introduction of Nutritional Substance into Peripheral Vein, Percutaneous Approach (ICD-10-PCS; 2019-04-30)
PROC: 0BH17EZ Insertion of Endotracheal Airway into Trachea, Via Natural or Artificial Opening (ICD-10-PCS; 2019-04-30)
PROC: 05HM33Z Insertion of Infusion Device into Right Internal Jugular Vein, Percutaneous Approach (ICD-10-PCS; 2019-04-30)
PROC: B543ZZA Ultrasonography of Right Jugular Veins, Guidance (ICD-10-PCS; 2019-04-30)
PROC: 0DU907Z Supplement Duodenum with Autologous Tissue Substitute, Open Approach (ICD-10-PCS; principal; 2019-04-30 12:01)
DX: A41.9 Sepsis, unspecified organism (principal); R65.21 Severe sepsis with septic shock; K26.1 Acute duodenal ulcer with perforation; K72.00 Acute and subacute hepatic failure without coma; J95.821 Acute postprocedural respiratory failure; K65.9 Peritonitis, unspecified; E87.2 Acidosis; N17.9 Acute kidney failure, unspecified; E87.1 Hypo-osmolality and hyponatremia; K91.89 Other postprocedural complications and disorders of digestive system; F79 Unspecified intellectual disabilities; Z79.84 Long term (current) use of oral hypoglycemic drugs; E87.5 Hyperkalemia; E11.22 Type 2 diabetes mellitus with diabetic chronic kidney disease; I13.10 Hypertensive heart and chronic kidney disease without heart failure, with stage 1 through stage 4 chronic kidney disease, or unspecified chronic kidney disease; N18.9 Chronic kidney disease, unspecified; E66.9 Obesity, unspecified; D64.9 Anemia, unspecified; Z68.31 Body mass index [BMI] 31.0-31.9, adult; F20.9 Schizophrenia, unspecified; F03.90 Unspecified dementia, unspecified severity, without behavioral disturbance, psychotic disturbance, mood disturbance, and anxiety; Y83.8 Other surgical procedures as the cause of abnormal reaction of the patient, or of later complication, without mention of misadventure at the time of the procedure; E83.42 Hypomagnesemia; E83.51 Hypocalcemia; D69.6 Thrombocytopenia, unspecified
CPT/HCPCS: 31500; 36415; 36600; 70450-TC; 71045-TC-FY; 74176-TC; 80048; 80053; 81003; 82550; 82553; 82803; 82962; 83605; 83735; 84100; 84478; 84484; 85025; 85027; 85384; 85610; 85730; 86022; 86850; 86900; 86901; 86922; 87040; 87070; 87075; 87086; 87205; 93005; 93010; 93306-TC; 93970-TC; 94002; 94760; 99285-25; G0480; J0131; J1644; J7030

== ENCOUNTER 2021-08-17 19:26 | Inpatient (IN) | payer OTHER ==
[2021-08-17 23:01] LABS: BASO % 0.3 % (0-2.0); EOS % 3.6 % (0-4.5); HEMATOCRIT 30.8 % (35.4-49); HEMOGLOBIN 10.2 GM/dL (11.7-16.9); LYMPH % 32.8 % (8-40); MCH 28.1 pg (25.7-33.7); MCHC 33.2 g/dl (32.0-35.9); MEAN CELL VOLUME 84.8 fl (80-96); MONO % 12.8 % (3.8-10.2); NEUT % 50.5 % (42.8-82.8); PLATELET COUNT 167 10^3/uL (134-434); RBC 3.64 M/mm3 (4.00-5.60); RDW 15.2 % (11.9-15.9); WHITE BLOOD COUNT 8.6 K/mm3 (4.0-10.0)
[2021-08-17 23:14] LABS: ACTIVATED PTT 43.4 SECONDS (25.2-36.5)
[2021-08-17 23:22] LABS: CALCIUM 9.1 mg/dL (8.5-10.1)
[2021-08-17 23:23] LABS: ALBUMIN 3.2 g/dl (3.4-5.0); BLOOD UREA NITROGEN 26.8 mg/dL (7-18)
[2021-08-17 23:26] LABS: CREATININE 1.2 mg/dL (0.55-1.3)
[2021-08-17 23:28] LABS: BILIRUBIN,TOTAL 0.3 mg/dL (0.2-1); TOT PROT 8.1 g/dl (6.4-8.2)
[2021-08-17] MEDS ORDERED: VANCOMYCIN 1 GM in D5W (PRE-DOCKED) 1,000 MG/250 ML IVPB ONE (23:42)
[2021-08-17] MEDS ORDERED: PIPERACILLIN/TAZOB 4.5 GM 4.5 GM in DEXTROSE 5%-WATER 100 ML IVPB ONE (23:43)
[2021-08-17 23:50] LABS: ERYTHROCYTE SEDIMENTATION RATE 69 mm/hr (0-20)
[2021-08-17 23:55] LABS: INR 1.07 (0.83-1.09); PROTHROMBIN TIME (PATIENT) 12.3 SEC (9.7-13.0)
[2021-08-18] MEDS ORDERED: VANCOMYCIN 1 GRAM (PRE-DOCKED) 1,000 MG/250 ML BAG IVPB ONE (00:30)
[2021-08-18] MEDS: PIPERACILLIN/TAZOB 3.375 GM 3.375 GM in DEXTROSE 5%-WATER - 50 ML IVPB SCH ×2 (06:33→10:53)
[2021-08-18] MEDS ORDERED: PIPERACILLIN/TAZOB 3.375 GM 3.375 GM/50 ML BAG IVPB ONE (06:34)
[2021-08-18] MEDS ORDERED: busPIRone HCL 5 MG TABLET ONE (06:35)
[2021-08-18] MEDS: busPIRone HCL 5 MG TABLET GT SCH ×3 (06:56→22:48)
[2021-08-18] MEDS ORDERED: VANCOMYCIN 1 GM in D5W (PRE-DOCKED) 1,000 MG/250 ML IVPB SCH (10:00)
[2021-08-18] MEDS: amLODIPine BESYLATE 5 MG TABLET (FP) GT SCH (10:59)
[2021-08-18] MEDS: LISINOPRIL 20 MG TABLET GT SCH (10:59)
[2021-08-18] MEDS: ENOXAPARIN NA (PORCINE) 40 MG/0.4 ML DISP.SYRIN SQ SCH (10:59)
[2021-08-18] MEDS: DOCUSATE NA 100 MG/10 ML UNIT-DOSE CUPS GT SCH (10:59)
[2021-08-18] MEDS: ASPIRIN 81 MG CHEWABLE TABLETS GT SCH (10:59)
[2021-08-18] MEDS ORDERED: VANCOMYCIN/WATER FOR INJ (PEG) 1,000 MG/200 ML BAG IVPB SCH (11:00)
[2021-08-18] MEDS: CHOLECALCIFEROL (VIT D SOLUTION) 400 UNIT/1 ML DROPS GT SCH (11:09)
[2021-08-18] MEDS: INSULIN (NOVOLOG) ASPART 100 UNITS/ML 10ML VIAL SQ SCH ×3 (11:15→22:48)
[2021-08-18] MEDS: chlorproMAZINE HCL 25 MG TABLET NR SCH (11:23)
[2021-08-18] MEDS: PIOGLITAZONE HCL 15 MG TABLET GT SCH (11:23)
[2021-08-18] MEDS: METOPROLOL TARTRATE 25 MG TABLET (FP) GT SCH (11:23)
[2021-08-18 12:35] LABS: BASO % 0.4 % (0-2.0); EOS % 3.7 % (0-4.5); HEMOGLOBIN 9.9 GM/dL (11.7-16.9); LYMPH % 18.5 % (8-40); MCHC 33.1 g/dl (32.0-35.9); MEAN CELL VOLUME 84.5 fl (80-96); MEAN PLT VOLUME 10.3 fl (7.5-11.1); NEUT % 62.4 % (42.8-82.8); PLATELET COUNT 152 10^3/uL (134-434); RBC 3.55 M/mm3 (4.00-5.60); RDW 15.3 % (11.9-15.9); WHITE BLOOD COUNT 8.5 K/mm3 (4.0-10.0)
[2021-08-18] MEDS ORDERED: PNEUMOC 20-VAL CONJ-DIP CRM/PF 0.5 ML SYRINGE IM ONE (12:56)
[2021-08-18 14:04] LABS: CALCIUM 9.5 mg/dL (8.5-10.1)
[2021-08-18 14:05] LABS: BLOOD UREA NITROGEN 25.5 mg/dL (7-18); MAGNESIUM 1.8 mg/dL (1.8-2.4)
[2021-08-18 14:08] LABS: PHOSPHOROUS 3.8 mg/dL (2.5-4.9)
[2021-08-18 14:10] LABS: TOT PROT 7.1 g/dl (6.4-8.2)
[2021-08-18 14:11] LABS: BILIRUBIN,TOTAL 0.6 mg/dL (0.2-1)
[2021-08-18 14:14] LABS: CREATININE 0.9 mg/dL (0.55-1.3)
[2021-08-18] MEDS: CEFAZOLIN 2 GM in DEXTROSE 5%-WATER - 100 ML IVPB SCH (20:57)
[2021-08-18] MEDS: ATORVASTATIN CA 20 MG TABLET (FP) GT SCH (22:48)
[2021-08-18] MEDS: METOPROLOL TARTRATE 50 MG TABLET (FP) GT SCH (22:48)
[2021-08-19] MEDS: chlorproMAZINE HCL 100 MG TABLET NR SCH ×2 (00:27→23:38)
[2021-08-19] MEDS: CEFAZOLIN 2 GM in DEXTROSE 5%-WATER - 100 ML IVPB SCH ×3 (02:34→17:35)
[2021-08-19] MEDS: PIOGLITAZONE HCL 15 MG TABLET GT SCH (06:13)
[2021-08-19] MEDS: chlorproMAZINE HCL 25 MG TABLET NR SCH (06:13)
[2021-08-19] MEDS: busPIRone HCL 5 MG TABLET GT SCH ×3 (06:13→22:24)
[2021-08-19] MEDS: METOPROLOL TARTRATE 25 MG TABLET (FP) GT SCH (06:13)
[2021-08-19] MEDS: INSULIN (NOVOLOG) ASPART 100 UNITS/ML 10ML VIAL SQ SCH ×5 (06:17→23:24)
[2021-08-19] MEDS: CHOLECALCIFEROL (VIT D SOLUTION) 400 UNIT/1 ML DROPS GT SCH (10:39)
[2021-08-19] MEDS: ENOXAPARIN NA (PORCINE) 40 MG/0.4 ML DISP.SYRIN SQ SCH (10:39)
[2021-08-19] MEDS: amLODIPine BESYLATE 5 MG TABLET (FP) GT SCH (10:39)
[2021-08-19] MEDS: ASPIRIN 81 MG CHEWABLE TABLETS GT SCH (10:40)
[2021-08-19] MEDS: DOCUSATE NA 100 MG/10 ML UNIT-DOSE CUPS GT SCH (10:40)
[2021-08-19] MEDS: LISINOPRIL 20 MG TABLET GT SCH (10:40)
[2021-08-19] MEDS: ATORVASTATIN CA 20 MG TABLET (FP) GT SCH (22:24)
[2021-08-19] MEDS: METOPROLOL TARTRATE 50 MG TABLET (FP) GT SCH (22:25)
[2021-08-19] MEDS: VALPROATE SODIUM 250 MG/5 ML UNIT DOSE CUP GT SCH (22:25)
[2021-08-20] MEDS: CEFAZOLIN 2 GM in DEXTROSE 5%-WATER - 100 ML IVPB SCH ×2 (01:28→10:49)
[2021-08-20] MEDS: busPIRone HCL 5 MG TABLET GT SCH ×3 (06:29→22:22)
[2021-08-20] MEDS: chlorproMAZINE HCL 25 MG TABLET NR SCH (06:29)
[2021-08-20] MEDS: METOPROLOL TARTRATE 25 MG TABLET (FP) GT SCH (06:29)
[2021-08-20] MEDS: PIOGLITAZONE HCL 15 MG TABLET GT SCH (06:30)
[2021-08-20] MEDS: INSULIN (NOVOLOG) ASPART 100 UNITS/ML 10ML VIAL SQ SCH ×4 (06:33→22:22)
[2021-08-20] MEDS: PIPERACILLIN/TAZOB 3.375 GM 3.375 GM in DEXTROSE 5%-WATER - 50 ML IVPB SCH ×2 (08:32→08:33)
[2021-08-20] MEDS: ASPIRIN 81 MG CHEWABLE TABLETS GT SCH (10:49)
[2021-08-20] MEDS: DOCUSATE NA 100 MG/10 ML UNIT-DOSE CUPS GT SCH (10:49)
[2021-08-20] MEDS: ENOXAPARIN NA (PORCINE) 40 MG/0.4 ML DISP.SYRIN SQ SCH (10:49)
[2021-08-20] MEDS: CHOLECALCIFEROL (VIT D SOLUTION) 400 UNIT/1 ML DROPS GT SCH (10:50)
[2021-08-20] MEDS: amLODIPine BESYLATE 5 MG TABLET (FP) GT SCH (12:13)
[2021-08-20] MEDS: LISINOPRIL 20 MG TABLET GT SCH (12:14)
[2021-08-20] MEDS: CLINDAMYCIN 600MG PREMIX IVPB 600 MG/50 ML BAG IVPB SCH (17:13)
[2021-08-20 18:16] VITALS: BMI 34.2
[2021-08-20] MEDS: chlorproMAZINE HCL 100 MG TABLET NR SCH (22:21)
[2021-08-20] MEDS: METOPROLOL TARTRATE 50 MG TABLET (FP) GT SCH (22:21)
[2021-08-20] MEDS: ATORVASTATIN CA 20 MG TABLET (FP) GT SCH (22:22)
[2021-08-20] MEDS: VALPROATE SODIUM 250 MG/5 ML UNIT DOSE CUP GT SCH (22:22)
[2021-08-21] MEDS: CLINDAMYCIN 600MG PREMIX IVPB 600 MG/50 ML BAG IVPB SCH ×3 (01:43→17:12)
[2021-08-21] MEDS: PIOGLITAZONE HCL 15 MG TABLET GT SCH (06:18)
[2021-08-21] MEDS: INSULIN (NOVOLOG) ASPART 100 UNITS/ML 10ML VIAL SQ SCH ×3 (06:18→17:11)
[2021-08-21] MEDS: busPIRone HCL 5 MG TABLET GT SCH ×2 (06:18→13:48)
[2021-08-21] MEDS: METOPROLOL TARTRATE 25 MG TABLET (FP) GT SCH (06:18)
[2021-08-21] MEDS: chlorproMAZINE HCL 25 MG TABLET NR SCH (06:18)
[2021-08-21 08:59] LABS: BASO % 0.7 % (0-2.0); EOS % 4.8 % (0-4.5); HEMATOCRIT 28.9 % (35.4-49); HEMOGLOBIN 9.6 GM/dL (11.7-16.9); LYMPH % 49.8 % (8-40); MCH 28.2 pg (25.7-33.7); MCHC 33.3 g/dl (32.0-35.9); MEAN CELL VOLUME 84.8 fl (80-96); MEAN PLT VOLUME 9.4 fl (7.5-11.1); NEUT % 30.7 % (42.8-82.8); PLATELET COUNT 188 10^3/uL (134-434); RBC 3.41 M/mm3 (4.00-5.60); RDW 15.3 % (11.9-15.9); WHITE BLOOD COUNT 7.5 K/mm3 (4.0-10.0)
[2021-08-21 09:48] LABS: CALCIUM 8.7 mg/dL (8.5-10.1)
[2021-08-21 09:49] LABS: BLOOD UREA NITROGEN 12.9 mg/dL (7-18)
[2021-08-21 09:50] LABS: CREATININE 0.9 mg/dL (0.55-1.3)
[2021-08-21] MEDS: LISINOPRIL 20 MG TABLET GT SCH (10:23)
[2021-08-21] MEDS: DOCUSATE NA 100 MG/10 ML UNIT-DOSE CUPS GT SCH (10:23)
[2021-08-21] MEDS: amLODIPine BESYLATE 5 MG TABLET (FP) GT SCH (10:23)
[2021-08-21] MEDS: CHOLECALCIFEROL (VIT D SOLUTION) 400 UNIT/1 ML DROPS GT SCH (10:23)
[2021-08-21] MEDS: ASPIRIN 81 MG CHEWABLE TABLETS GT SCH (10:23)
[2021-08-21] MEDS: ENOXAPARIN NA (PORCINE) 40 MG/0.4 ML DISP.SYRIN SQ SCH (10:24)
[2021-08-22] MEDS: VALPROATE SODIUM 250 MG/5 ML UNIT DOSE CUP GT SCH ×2 (00:04→21:11)
[2021-08-22] MEDS: METOPROLOL TARTRATE 50 MG TABLET (FP) GT SCH ×2 (00:04→21:12)
[2021-08-22] MEDS: busPIRone HCL 5 MG TABLET GT SCH ×4 (00:04→21:12)
[2021-08-22] MEDS: chlorproMAZINE HCL 100 MG TABLET NR SCH ×2 (00:04→21:12)
[2021-08-22] MEDS: ATORVASTATIN CA 20 MG TABLET (FP) GT SCH ×2 (00:04→21:12)
[2021-08-22] MEDS: INSULIN (NOVOLOG) ASPART 100 UNITS/ML 10ML VIAL SQ SCH ×5 (00:04→22:24)
[2021-08-22] MEDS: CLINDAMYCIN 600MG PREMIX IVPB 600 MG/50 ML BAG IVPB SCH ×3 (02:15→17:04)
[2021-08-22] MEDS: METOPROLOL TARTRATE 25 MG TABLET (FP) GT SCH (06:39)
[2021-08-22] MEDS: PIOGLITAZONE HCL 15 MG TABLET GT SCH (06:49)
[2021-08-22] MEDS: chlorproMAZINE HCL 25 MG TABLET NR SCH (07:07)
[2021-08-22] MEDS: ENOXAPARIN NA (PORCINE) 40 MG/0.4 ML DISP.SYRIN SQ SCH (10:03)
[2021-08-22] MEDS: LISINOPRIL 20 MG TABLET GT SCH (10:04)
[2021-08-22] MEDS: amLODIPine BESYLATE 5 MG TABLET (FP) GT SCH (10:04)
[2021-08-22] MEDS: ASPIRIN 81 MG CHEWABLE TABLETS GT SCH (10:04)
[2021-08-22] MEDS: DOCUSATE NA 100 MG/10 ML UNIT-DOSE CUPS GT SCH (10:05)
[2021-08-22] MEDS: CHOLECALCIFEROL (VIT D SOLUTION) 400 UNIT/1 ML DROPS GT SCH (10:06)
[2021-08-23] MEDS: CLINDAMYCIN 600MG PREMIX IVPB 600 MG/50 ML BAG IVPB SCH ×3 (01:14→17:34)
[2021-08-23] MEDS: busPIRone HCL 5 MG TABLET GT SCH ×3 (06:24→22:48)
[2021-08-23] MEDS: METOPROLOL TARTRATE 25 MG TABLET (FP) GT SCH (06:24)
[2021-08-23] MEDS: PIOGLITAZONE HCL 15 MG TABLET GT SCH (06:24)
[2021-08-23] MEDS: chlorproMAZINE HCL 25 MG TABLET NR SCH (06:26)
[2021-08-23] MEDS: INSULIN (NOVOLOG) ASPART 100 UNITS/ML 10ML VIAL SQ SCH ×4 (06:35→22:58)
[2021-08-23] MEDS: amLODIPine BESYLATE 5 MG TABLET (FP) GT SCH (10:27)
[2021-08-23] MEDS: ASPIRIN 81 MG CHEWABLE TABLETS GT SCH (10:27)
[2021-08-23] MEDS: LISINOPRIL 20 MG TABLET GT SCH (10:27)
[2021-08-23] MEDS: DOCUSATE NA 100 MG/10 ML UNIT-DOSE CUPS GT SCH (10:27)
[2021-08-23] MEDS: ENOXAPARIN NA (PORCINE) 40 MG/0.4 ML DISP.SYRIN SQ SCH (10:28)
[2021-08-23] MEDS: CHOLECALCIFEROL (VIT D SOLUTION) 400 UNIT/1 ML DROPS GT SCH (15:40)
[2021-08-23] MEDS: METFORMIN GT SCH ×2 (19:03→19:04)
[2021-08-23] MEDS: [UNRECOGNIZED DRUG - OTHER] GT SCH ×2 (19:03→19:04)
[2021-08-23] MEDS: VALPROATE SODIUM 250 MG/5 ML UNIT DOSE CUP GT SCH (22:48)
[2021-08-23] MEDS: ATORVASTATIN CA 20 MG TABLET (FP) GT SCH (22:48)
[2021-08-23] MEDS: chlorproMAZINE HCL 100 MG TABLET NR SCH (22:48)
[2021-08-23] MEDS: METOPROLOL TARTRATE 50 MG TABLET (FP) GT SCH (22:48)
[2021-08-24] MEDS: CLINDAMYCIN 600MG PREMIX IVPB 600 MG/50 ML BAG IVPB SCH ×3 (01:22→17:13)
[2021-08-24] MEDS: PIOGLITAZONE HCL 15 MG TABLET GT SCH (06:41)
[2021-08-24] MEDS: chlorproMAZINE HCL 25 MG TABLET NR SCH (06:41)
[2021-08-24] MEDS: METOPROLOL TARTRATE 25 MG TABLET (FP) GT SCH (06:41)
[2021-08-24] MEDS: busPIRone HCL 5 MG TABLET GT SCH ×3 (06:41→23:39)
[2021-08-24] MEDS: INSULIN (NOVOLOG) ASPART 100 UNITS/ML 10ML VIAL SQ SCH ×4 (06:44→23:39)
[2021-08-24] MEDS: CHOLECALCIFEROL (VIT D SOLUTION) 400 UNIT/1 ML DROPS GT SCH (11:30)
[2021-08-24] MEDS: ENOXAPARIN NA (PORCINE) 40 MG/0.4 ML DISP.SYRIN SQ SCH (11:31)
[2021-08-24] MEDS: amLODIPine BESYLATE 5 MG TABLET (FP) GT SCH (11:32)
[2021-08-24] MEDS: DOCUSATE NA 100 MG/10 ML UNIT-DOSE CUPS GT SCH (11:32)
[2021-08-24] MEDS: ASPIRIN 81 MG CHEWABLE TABLETS GT SCH (11:32)
[2021-08-24] MEDS: LISINOPRIL 20 MG TABLET GT SCH (11:32)
[2021-08-24] MEDS: VALPROATE SODIUM 250 MG/5 ML UNIT DOSE CUP GT SCH (23:39)
[2021-08-24] MEDS: METOPROLOL TARTRATE 50 MG TABLET (FP) GT SCH (23:39)
[2021-08-24] MEDS: ATORVASTATIN CA 20 MG TABLET (FP) GT SCH (23:39)
[2021-08-24] MEDS: chlorproMAZINE HCL 100 MG TABLET NR SCH (23:40)
[2021-08-25] MEDS: CLINDAMYCIN 600MG PREMIX IVPB 600 MG/50 ML BAG IVPB SCH ×3 (02:01→17:27)
[2021-08-25] MEDS: METOPROLOL TARTRATE 25 MG TABLET (FP) GT SCH (06:47)
[2021-08-25] MEDS: INSULIN (NOVOLOG) ASPART 100 UNITS/ML 10ML VIAL SQ SCH ×4 (06:49→23:24)
[2021-08-25] MEDS: busPIRone HCL 5 MG TABLET GT SCH ×3 (06:50→23:24)
[2021-08-25] MEDS: PIOGLITAZONE HCL 15 MG TABLET GT SCH (06:50)
[2021-08-25] MEDS: chlorproMAZINE HCL 25 MG TABLET NR SCH (06:51)
[2021-08-25] MEDS: LISINOPRIL 20 MG TABLET GT SCH (12:26)
[2021-08-25] MEDS: ASPIRIN 81 MG CHEWABLE TABLETS GT SCH (12:27)
[2021-08-25] MEDS: DOCUSATE NA 100 MG/10 ML UNIT-DOSE CUPS GT SCH (12:28)
[2021-08-25] MEDS: amLODIPine BESYLATE 5 MG TABLET (FP) GT SCH (12:28)
[2021-08-25] MEDS: CHOLECALCIFEROL (VIT D SOLUTION) 400 UNIT/1 ML DROPS GT SCH (12:29)
[2021-08-25] MEDS: VALPROATE SODIUM 250 MG/5 ML UNIT DOSE CUP GT SCH (23:23)
[2021-08-25] MEDS: ATORVASTATIN CA 20 MG TABLET (FP) GT SCH (23:23)
[2021-08-25] MEDS: METOPROLOL TARTRATE 50 MG TABLET (FP) GT SCH (23:24)
[2021-08-25] MEDS: chlorproMAZINE HCL 100 MG TABLET NR SCH (23:24)
[2021-08-26] MEDS: CLINDAMYCIN 600MG PREMIX IVPB 600 MG/50 ML BAG IVPB SCH ×3 (01:52→17:01)
[2021-08-26] MEDS: busPIRone HCL 5 MG TABLET GT SCH ×3 (06:29→22:08)
[2021-08-26] MEDS: PIOGLITAZONE HCL 15 MG TABLET GT SCH (06:29)
[2021-08-26] MEDS: METOPROLOL TARTRATE 25 MG TABLET (FP) GT SCH (06:30)
[2021-08-26] MEDS: chlorproMAZINE HCL 25 MG TABLET NR SCH (06:30)
[2021-08-26] MEDS: INSULIN (NOVOLOG) ASPART 100 UNITS/ML 10ML VIAL SQ SCH ×4 (06:30→23:09)
[2021-08-26] MEDS: LISINOPRIL 20 MG TABLET GT SCH (11:08)
[2021-08-26] MEDS: DOCUSATE NA 100 MG/10 ML UNIT-DOSE CUPS GT SCH (11:08)
[2021-08-26] MEDS: amLODIPine BESYLATE 5 MG TABLET (FP) GT SCH (11:08)
[2021-08-26] MEDS: ASPIRIN 81 MG CHEWABLE TABLETS GT SCH (11:08)
[2021-08-26] MEDS: CHOLECALCIFEROL (VIT D SOLUTION) 400 UNIT/1 ML DROPS GT SCH (11:09)
[2021-08-26] MEDS: VALPROATE SODIUM 250 MG/5 ML UNIT DOSE CUP GT SCH (22:08)
[2021-08-26] MEDS: METOPROLOL TARTRATE 50 MG TABLET (FP) GT SCH (22:08)
[2021-08-26] MEDS: ATORVASTATIN CA 20 MG TABLET (FP) GT SCH (22:08)
[2021-08-26] MEDS: chlorproMAZINE HCL 100 MG TABLET NR SCH (22:09)
[2021-08-27] MEDS: CLINDAMYCIN 600MG PREMIX IVPB 600 MG/50 ML BAG IVPB SCH ×2 (01:55→10:50)
[2021-08-27] MEDS: METOPROLOL TARTRATE 25 MG TABLET (FP) GT SCH (06:48)
[2021-08-27] MEDS: busPIRone HCL 5 MG TABLET GT SCH ×3 (06:48→22:42)
[2021-08-27] MEDS: chlorproMAZINE HCL 25 MG TABLET NR SCH (06:49)
[2021-08-27] MEDS: INSULIN (NOVOLOG) ASPART 100 UNITS/ML 10ML VIAL SQ SCH ×4 (06:49→22:42)
[2021-08-27] MEDS: PIOGLITAZONE HCL 15 MG TABLET GT SCH (06:49)
[2021-08-27 08:18] LABS: BASO % 0.7 % (0-2.0); EOS % 1.5 % (0-4.5); HEMATOCRIT 28.8 % (35.4-49); HEMOGLOBIN 9.5 GM/dL (11.7-16.9); LYMPH % 44.3 % (8-40); MCHC 33.1 g/dl (32.0-35.9); MEAN CELL VOLUME 84.5 fl (80-96); MEAN PLT VOLUME 9.6 fl (7.5-11.1); MONO % 11.2 % (3.8-10.2); NEUT % 42.3 % (42.8-82.8); PLATELET COUNT 240 10^3/uL (134-434)
[2021-08-27 08:43] LABS: CALCIUM 8.7 mg/dL (8.5-10.1)
[2021-08-27 08:44] LABS: ALBUMIN 2.5 g/dl (3.4-5.0); BLOOD UREA NITROGEN 24.7 mg/dL (7-18)
[2021-08-27 08:47] LABS: CREATININE 1.2 mg/dL (0.55-1.3)
[2021-08-27 08:49] LABS: BILIRUBIN,TOTAL 0.2 mg/dL (0.2-1); TOT PROT 6.8 g/dl (6.4-8.2)
[2021-08-27] MEDS: DOCUSATE NA 100 MG/10 ML UNIT-DOSE CUPS GT SCH (10:50)
[2021-08-27] MEDS: LISINOPRIL 20 MG TABLET GT SCH (10:50)
[2021-08-27] MEDS: ASPIRIN 81 MG CHEWABLE TABLETS GT SCH (10:50)
[2021-08-27] MEDS: CHOLECALCIFEROL (VIT D SOLUTION) 400 UNIT/1 ML DROPS GT SCH (10:52)
[2021-08-27] MEDS: amLODIPine BESYLATE 5 MG TABLET (FP) GT SCH (11:00)
[2021-08-27] MEDS: VALPROATE SODIUM 250 MG/5 ML UNIT DOSE CUP GT SCH (22:41)
[2021-08-27] MEDS: ATORVASTATIN CA 20 MG TABLET (FP) GT SCH (22:42)
[2021-08-27] MEDS: METOPROLOL TARTRATE 50 MG TABLET (FP) GT SCH (22:42)
[2021-08-27] MEDS: chlorproMAZINE HCL 100 MG TABLET NR SCH (22:44)
[2021-08-28] MEDS: busPIRone HCL 5 MG TABLET GT SCH ×2 (06:22→14:54)
[2021-08-28] MEDS: chlorproMAZINE HCL 25 MG TABLET NR SCH (06:22)
[2021-08-28] MEDS: PIOGLITAZONE HCL 15 MG TABLET GT SCH (06:23)
[2021-08-28] MEDS: INSULIN (NOVOLOG) ASPART 100 UNITS/ML 10ML VIAL SQ SCH ×3 (06:26→16:58)
[2021-08-28] MEDS: METOPROLOL TARTRATE 25 MG TABLET (FP) GT SCH (06:37)
[2021-08-28] MEDS: CHOLECALCIFEROL (VIT D SOLUTION) 400 UNIT/1 ML DROPS GT SCH (09:39)
[2021-08-28] MEDS: ASPIRIN 81 MG CHEWABLE TABLETS GT SCH (09:39)
[2021-08-28] MEDS: DOCUSATE NA 100 MG/10 ML UNIT-DOSE CUPS GT SCH (09:39)
[2021-08-28] MEDS: LISINOPRIL 20 MG TABLET GT SCH (09:43)
[2021-08-28 14:16] VITALS: BP 112/50; PULSE 77; TEMP 97.8
== END 2021-08-28 17:47 | disposition home or self-care (01) | DRG 603 ==
LOC: JER 19:26 → JERBED 08-18 00:09 → J5S 08-18 08:46
PROVIDERS: ADMIT Internal Medicine
PROC: 3E0G76Z Introduction of Nutritional Substance into Upper GI, Via Natural or Artificial Opening (ICD-10-PCS; principal; 2021-08-17)
DX: L03.115 Cellulitis of right lower limb (principal); E87.1 Hypo-osmolality and hyponatremia; E11.65 Type 2 diabetes mellitus with hyperglycemia; F20.9 Schizophrenia, unspecified; F03.90 Unspecified dementia, unspecified severity, without behavioral disturbance, psychotic disturbance, mood disturbance, and anxiety; E78.5 Hyperlipidemia, unspecified; I10 Essential (primary) hypertension; F79 Unspecified intellectual disabilities; E11.621 Type 2 diabetes mellitus with foot ulcer; L97.519 Non-pressure chronic ulcer of other part of right foot with unspecified severity; D64.9 Anemia, unspecified; Z74.01 Bed confinement status; Z93.1 Gastrostomy status; Z79.84 Long term (current) use of oral hypoglycemic drugs
CPT/HCPCS: 36415; 73630-TC-RT-FY; 74018-TC-FY; 80048; 80053; 82962; 83735; 84100; 85025; 85610; 85651; 85730; 86140; 86850; 86900; 86901; 87040; 93005; 93010; 99285-25; C9803-CS; U0003; U0005

== ENCOUNTER 2021-11-16 16:24 | Emergency (ER) | payer OTHER ==
[2021-11-16 16:42] VITALS: BP 122/82; PULSE 103; RESP 22; TEMP 97.9; BMI 30.7
[2021-11-16 20:19] LABS: BASO % 0.9 % (0-2.0); EOS % 1.6 % (0-4.5); HEMATOCRIT 30.9 % (35.4-49); HEMOGLOBIN 10.5 GM/dL (11.7-16.9); LYMPH % 35.9 % (8-40); MCH 27.9 pg (25.7-33.7); MCHC 33.9 g/dl (32.0-35.9); MEAN CELL VOLUME 82.3 fl (80-96); MEAN PLT VOLUME 7.8 fl (7.5-11.1); MONO % 13.8 % (3.8-10.2); NEUT % 47.8 % (42.8-82.8); PLATELET COUNT 350 10^3/uL (134-434); RBC 3.75 M/mm3 (4.00-5.60); RDW 16.1 % (11.9-15.9); WHITE BLOOD COUNT 9.3 K/mm3 (4.0-10.0)
== END 2021-11-16 22:32 | disposition home or self-care (01) ==
LOC: JER 16:24
DX: D64.9 Anemia, unspecified (principal); R11.10 Vomiting, unspecified
CPT/HCPCS: 36415; 85025; 99283-25

== ENCOUNTER 2022-09-21 17:49 | Emergency (ER) | payer OTHER ==
[2022-09-21 18:01] VITALS: BP 120/55; RESP 20; TEMP 97.4; BMI 32.9
[2022-09-21 18:18] VITALS: PULSE 74
== END 2022-09-22 02:11 ==
LOC: JER 17:49 → JERBED 21:54 → UNDOADMIN 21:54 → JER 09-22 02:11
PROC: 0DH60UZ Insertion of Feeding Device into Stomach, Open Approach (ICD-10-PCS; principal; 2022-09-21)
DX: K94.23 Gastrostomy malfunction (principal); R68.89 Other general symptoms and signs; Z93.1 Gastrostomy status
CPT/HCPCS: 74018-TC-FY; 99284-25

== ENCOUNTER 2023-06-28 20:30 | Emergency (ER) | payer OTHER ==
[2023-06-28 20:41] VITALS: BP 137/69; PULSE 77; RESP 18; TEMP 97.6; BMI 32.5
== END 2023-06-28 22:48 | disposition home or self-care (01) ==
LOC: JER 20:30
PROC: 0D20XUZ Change Feeding Device in Upper Intestinal Tract, External Approach (ICD-10-PCS; principal; 2023-06-28)
DX: K94.23 Gastrostomy malfunction (principal)
CPT/HCPCS: 74018-TC-FY; 99283-25

== ENCOUNTER 2023-09-25 07:52 | Emergency (ER) | payer OTHER ==
[2023-09-25 07:59] VITALS: BP 109/63; PULSE 105; RESP 20; TEMP 97.6; BMI 27.4
== END 2023-09-25 12:26 | disposition home or self-care (01) ==
LOC: JER 07:52
DX: R11.10 Vomiting, unspecified (principal)
CPT/HCPCS: 74018-TC-FY; 82962; 99284-25

== ENCOUNTER 2023-10-04 09:36 | Emergency (ER) | payer OTHER ==
[2023-10-04 09:48] VITALS: BP 115/82; PULSE 88; RESP 18; TEMP 97.6; BMI 30.4
[2023-10-04] MEDS ORDERED: PANTOPRAZOLE SODIUM 40 MG VIAL ONE (10:34)
[2023-10-04] MEDS: PANTOPRAZOLE SODIUM 40 MG VIAL IVPUSH ONE (10:37)
[2023-10-04 10:51] LABS: BASO % 0.5 % (0-2.0); EOS % 1.3 % (0-4.5); HEMATOCRIT 38.2 % (35.4-49); LYMPH % 29.6 % (8-40); MCH 28.8 pg (25.7-33.7); MEAN CELL VOLUME 84.8 fl (80-96); MEAN PLT VOLUME 9.4 fl (7.5-11.1); MONO % 13.8 % (3.8-10.2); NEUT % 54.8 % (42.8-82.8); PLATELET COUNT 212 10^3/uL (134-434); RDW 14.2 % (11.9-15.9); WHITE BLOOD COUNT 9.6 K/mm3 (4.0-10.0)
[2023-10-04 11:07] LABS: ACTIVATED PTT 36.8 SECONDS (25.2-36.5)
[2023-10-04 11:12] LABS: POTASSIUM 4.5 mmol/L (3.5-5.1)
[2023-10-04 11:14] LABS: BLOOD UREA NITROGEN 7.1 mg/dL (7-18); CALCIUM 9.2 mg/dL (8.5-10.1)
[2023-10-04 11:17] LABS: CREATININE 0.9 mg/dL (0.55-1.3)
[2023-10-04 11:18] LABS: BILIRUBIN,TOTAL 0.2 mg/dL (0.2-1); TOT PROT 7.4 g/dl (6.4-8.2)
[2023-10-04 11:23] LABS: PROTHROMBIN TIME (PATIENT) 11.3 SEC (9.7-13.0)
== END 2023-10-04 11:39 | disposition home or self-care (01) ==
LOC: JER 09:36
PROC: 3E033GC Introduction of Other Therapeutic Substance into Peripheral Vein, Percutaneous Approach (ICD-10-PCS; principal; 2023-10-04)
DX: K94.23 Gastrostomy malfunction (principal)
CPT/HCPCS: 36415; 80053; 82272; 85025; 85610; 85730; 99284-25